=== PATIENT | female | born 1985 | race Caucasian/White ===

== ENCOUNTER 2020-11-06 20:24 | Emergency (ER) | payer OTHER, SELFPAY ==
--- NOTE | ~2020-11-06 | XR_ITS ---
EXAMINATION: XR CHEST CLINICAL INFORMATION: Shortness of breath COMPARISON: Prior chest August 2019 TECHNIQUE: Frontal view of the chest was obtained. FINDINGS: No significant abnormality is noted involving the heart, lungs, mediastinum, bony thorax or soft tissues. XR/XR chest 1V IMPRESSION: Unremarkable examination.
[2020-11-06 20:42] VITALS: BP 124/79; PULSE 118; RESP 22; TEMP 37.4; O2SAT 96; BMI 46.5
[2020-11-06 23:23] VITALS: BP 155/88; PULSE 117; RESP 20; O2SAT 96
--- NOTE | 2020-11-06 23:40 | ED_ITS ---
HPI - SOB/Dyspnea General Chief Complaint: Upper Respiratory Symptoms Stated Complaint: diff breathing, mucus build up Time Seen by Provider: 11/06/20 23:00 Source: patient Mode of arrival: ambulatory Limitations: no limitations History of Present Illness HPI Narrative: Patient comes to emergency room complaining of multiple asthma exacerbations throughout the last 2 weeks. Patient states that her asthma responds well to albuterol, however she is using more albuterol than usual, giving herself a treatment every 2-3 hours rather than 4 hours. Patient denies fever. Complaining of cough with phlegm. Related Data Previous Rx's Medication Instructions Recorded albuterol sulfate 2.5 mg INHALATION Q4-6H PRN #15 ml 11/07/20 albuterol sulfate 90 mcg/actuation 2 puff INHALATION Q4-6H PRN #6.7 g 11/07/20 aerosol inhaler prednisone 50 mg tablet 50 mg PO DAILY #4 tab 11/07/20 Allergies Allergy/AdvReac Type Severity Reaction Status Date / Time peanut [PEANUT] Allergy Severe ANAPHYLAXIS Verified 11/06/20 20:45 clindamycin [CLINDAMYCIN] Allergy Mild UNKNOWN Verified 11/06/20 20:45 cefaclor [From CECLOR] Allergy Unknown UNKNOWN Verified 11/06/20 20:45 erythromycin base Allergy Unknown RASH Verified 11/06/20 20:45 [ERYTHROMYCIN BASE] lemon [Lemon] AdvReac Unknown VOMITING Verified 11/06/20 20:45 SEAFOOD Allergy Severe ANAPHYLAXIS Uncoded 11/06/20 20:45 Review of Systems Review of Systems: Constitutional : No Weight loss, No Fever, No Chills, No Night Sweats, No Fatigue, No Malaise ENT/Mouth : No Hearing loss, No Ear Pain, No Nasal Congestion, No Sinus Pain, No Hoarseness, No sore throat, No Rhinorrhea, No Swallowing Difficulty Eyes: No Eye Pain, No Swelling, No Redness, No Foreign Body, No Discharge, No Vision Changes Cardiovascular : No Chest Pain, No SOB, No Dyspnea on Exertion, No Orthopnea, No Edema, No Palpitations Respiratory : Complaining of productive cough, multiple asthma exacerbations, No Smoke Exposure Gastrointestinal : No Nausea, No Vomiting, No Diarrhea, No Constipation, No abdominal Pain, No Hematochezia, No Melena Genitourinary : no irregular bleeding, No Dysuria, No Urinary Frequency, No Hematuria, No Urinary Incontinence, No Urgency, No Flank Pain, No Urinary Flow Changes, No Hesitancy Musculoskeletal : No joint pain, No Myalgias, No Joint Swelling Skin : No Skin Lesions, No rash Neuro : No Weakness, No Numbness, No Paresthesias, No Loss of Consciousness, No Dizziness, No Headache Psych : No Anxiety/Panic, No Depression, No SI/HI/AH/VH, No Social Issues, Heme/Lymph: No Bruising, No Bleeding,No Lymphadenopathy Endocrine : No Polyuria, No Polydipsia, No Temperature Intolerance [facility] Past Medical History Medical History Acid reflux Anxiety Asthma Social History Social History Advance Directives: No Physical Exam Vital Signs: Vital Signs: Last Vital Signs Temp 99.3 F 11/06/20 20:42 Pulse 117 H 11/07/20 00:14 Resp 20 11/06/20 23:23 BP 155/88 H 11/06/20 23:23 Pulse Ox 96 11/06/20 23:23 Body Mass Index 46.5 Const: Other: Appearance: Alert. Oriented X3. No acute distress. Eyes: Pupils equal, round and reactive to light. ENT: Pharynx normal. Neck: Normal inspection. Neck supple. No lymph nodes noted. No crepitus CVS: Normal heart rate and rhythm. Pulses normal. Normal S1 and S2 Respiratory: Diminished breath sounds, bilateral wheezing, no acute distress Abdomen: Soft and nontender. No rigidity. No distention. good BS x4 Skin: Skin warm and dry. Normal skin color. Normal skin turgor. Extremities: No lower extremity edema. No lower extremity edema. No Lacerations. No Rash Neuro: Oriented X 3. No motor deficit. No sensory deficit. Moving all extermities. No slurred speech. Course Course Course Narrative: Patient no longer wheezing after albuterol treatment and p.o. prednisone. MDM - SOB/Dyspnea Lab Data Labs: Lab Results 11/06/20 Range/Units 23:22 Coronavirus (PCR) NEGATIVE (Negative) Influenza Type A (PCR) NEGATIVE (Negative) Influenza Type B (PCR) NEGATIVE (Negative) RSV RNA Qual (PCR) NEGATIVE (Negative) Imaging Data Chest x-ray: Radiologist's impression: FINDINGS: No significant abnormality is noted involving the heart, lungs, mediastinum, bony thorax or soft tissues. XR/XR chest 1V IMPRESSION: Unremarkable examination. Discharge Plan Discharge Clinical Impression: Asthma exacerbation, Chronic bronchitis Patient Disposition: Home, Self-Care Instructions: Bronchospasm (ED) Additional Instructions: Please follow-up with your primary care physician tomorrow. If you have any worsening or new symptoms, please return to the emergency room or call 911 Prescriptions: New albuterol sulfate 2.5 mg /3 mL (0.083 %) solution for nebulization 2.5 mg inhalation Q4-6H PRN (Reason: bronchospasm) Qty: 15 RF: 0 albuterol sulfate 90 mcg/actuation HFA aerosol inhaler 2 puff inhalation Q4-6H PRN (Reason: shortness of breath or wheezing) Qty: 6.7 RF: 0 prednisone 50 mg tablet 50 mg PO DAILY Qty: 4 RF: 0
[2020-11-07 00:11] LABS: Influenza A PCR NEGATIVE (Negative); Influenza B PCR NEGATIVE (Negative); Resp Syncy Virus RNA Qual PCR NEGATIVE (Negative); SARS COV2 PCR INHOUSE NEGATIVE (Negative)
[2020-11-07] MEDS: Albuterol Sulfate (0.083%) 2.5 MG/3 ML VIAL.NEB 10 MG INHALE (00:13)
[2020-11-07 00:14] VITALS: PULSE 117; O2SAT 96
[2020-11-07] MEDS: predniSONE 20 MG TABLET 60 MG PO (01:12)
== END 2020-11-07 02:01 | disposition home or self-care (01) ==
PROVIDERS: Emergency Provider Emergency Medicine
DX: J45.901 Unspecified asthma with (acute) exacerbation (principal); J42 Unspecified chronic bronchitis; Z79.899 Other long term (current) drug therapy; Z20.822 Contact with and (suspected) exposure to COVID-19
CPT/HCPCS: 0241U; 36415; 71045; 94640; 94644; 99283; 99284

== ENCOUNTER 2021-03-13 13:47 | Emergency (ER) | payer OTHER, SELFPAY ==
--- NOTE | 2021-03-13 | ECG_ITS ---
Test Reason : CHEST WALL PAIN Blood Pressure : / mmHG Vent. Rate : 079 BPM Atrial Rate : 079 BPM P-R Int : 140 ms QRS Dur : 080 ms QT Int : 364 ms P-R-T Axes : 019 066 024 degrees QTc Int : 417 ms Normal sinus rhythm Normal ECG When compared with ECG of 23-AUG-2019 01:21, No significant change was found Referred By: Generic ED Physician Electronically Signed By:Jose Ladd
--- NOTE | ~2021-03-13 | XR_ITS ---
EXAMINATION: XR CHEST CLINICAL INFORMATION: Chest pain, cough. COMPARISON: 11/06/2020 chest radiograph. TECHNIQUE: 2 views of the chest were obtained. FINDINGS: No significant abnormality is noted involving the heart, lungs, mediastinum, bony thorax or soft tissues. XR/XR chest 2V IMPRESSION: No acute cardiopulmonary process.
[2021-03-13 13:56] VITALS: BP 100/62; BP 148/82; PULSE 105; PULSE 82; RESP 16; TEMP 35.9; O2SAT 95; O2SAT 99; BMI 48.6
--- NOTE | 2021-03-13 14:21 | ED_ITS ---
HPI - General Adult General Chief complaint: General Medical Time Seen by Provider: 03/13/21 14:21 Source: patient, EMS and RN notes reviewed Mode of arrival: EMS Limitations: no limitations History of Present Illness HPI narrative: 36-year-old female with past medical history of acid reflux, and anxiety, asthma is here today for complaints of less chest discomfort. Patient reports that she has reproducible lowerleft and upper left chest pain. Patient reports that she has been coughing in the last couple days with white sputum. Patient has a history of asthma. Reports that she used her nebulizer treatment with some results yesterday. Patient denies any orthopnea, SOB with or without exertion, palpitations, PND. Patient reports that she has been feeling little tired lately. She states that she might be . Is asking for test. Patient denies any nausea or vomiting. Denies any diarrhea, constipation. Onset (ago): day(s) Location: chest Radiation: non-radiation Severity: mild Quality: aching Pain Consistency: intermittent Related Data Previous Rx's Medication Instructions Recorded albuterol sulfate 2.5 mg (3 mL) INHALATION Q4-6H PRN 11/07/20 #15 ml albuterol sulfate 90 mcg/actuation 2 puff INHALATION Q4-6H PRN #6.7 g 11/07/20 aerosol inhaler prednisone 50 mg tablet 50 mg PO DAILY #4 tab 11/07/20 ibuprofen 100 mg/5 mL oral 600 mg (30 mL) PO Q6H PRN #473 ml 03/13/21 suspension (Children's Ibuprofen) Allergies Allergy/AdvReac Type Severity Reaction Status Date / Time peanut [PEANUT] Allergy Severe ANAPHYLAXIS Verified 11/06/20 20:45 clindamycin [CLINDAMYCIN] Allergy Mild UNKNOWN Verified 11/06/20 20:45 cefaclor [From CECLOR] Allergy Unknown UNKNOWN Verified 11/06/20 20:45 erythromycin base Allergy Unknown RASH Verified 11/06/20 20:45 [ERYTHROMYCIN BASE] lemon [Lemon] AdvReac Unknown VOMITING Verified 11/06/20 20:45 SEAFOOD Allergy Severe ANAPHYLAXIS Uncoded 11/06/20 20:45 Review of Systems Review of Systems: Constitutional : No Weight loss, No Fever, No Chills, No Night Sweats, No Fatigue, No Malaise ENT/Mouth : No Hearing loss, No Ear Pain, No Nasal Congestion, No Sinus Pain, No Hoarseness, sore throat, No Rhinorrhea, No Swallowing Difficulty Eyes: No Eye Pain, No Swelling, No Redness, No Foreign Body, No Discharge, No Vision Changes Cardiovascular : Chest Pain reproducible, No SOB, No Dyspnea on Exertion, No Orthopnea, No Edema, No Palpitations Respiratory : Cough, No Sputum, No Wheezing, No Smoke Exposure, No Dyspnea Gastrointestinal Nausea, No Vomiting, No Diarrhea, No Constipation, No abdominal Pain, No Hematochezia, No Melena Genitourinary : no irregular bleeding, No Dysuria, No Urinary Frequency, No Hematuria, No Urinary Incontinence, No Urgency, No Flank Pain, No Urinary Flow Changes, No Hesitancy Musculoskeletal : No joint pain, No Myalgias, No Joint Swelling Skin : No Skin Lesions, No rash Neuro : No Weakness, No Numbness, No Paresthesias, No Loss of Consciousness, No Dizziness, No Headache Psych : No Anxiety/Panic, No Depression, No SI/HI/AH/VH, No Social Issues, Yes all other systems are reviewed and are negative [facility] Past Medical History Medical History Acid reflux Anxiety Asthma Social History Social History Advance Directives: No Advance Directives Information Provided: No Physical Exam Vital Signs: Vital Signs: Last Vital Signs Temp 96.7 F L 03/13/21 13:56 Pulse 82 03/13/21 13:56 Resp 16 03/13/21 13:56 BP 100/62 03/13/21 13:56 Pulse Ox 95 03/13/21 13:56 BMI result Body Mass Index 48.6 Const: General: healthy appearing, no acute distress and well developed Nutritional Appearance: well nourished Orientation/consciousness: patient oriented x3 HENMT: Head: Yes normal to inspection, Yes normocephalic and Yes atraumatic Face and sinus: Yes normal facial exam Mouth: Normal oral and palatal mucosa present Throat: Yes posterior oropharynx normal, Yes tonsils normal and Yes uvula midline Eyes: General: appearance normal, both eyes and all related structures Neck: Neck: Yes normal visual inspection, Yes full ROM and Yes trachea midline Thyroid: Thyroid normal Resp: Effort & Inspection: normal respiratory effort, able to speak in complete sentences, no tracheal deviation and symmetric chest movement Auscultation: clear to auscultation bilaterally Cardio: Jugular venous distension: no JVD Rate: regular rate Heart sounds: S1 normal heart sound present, S2 normal heart sound present, no gallops and no murmurs GI: Inspection: Yes normal to inspection, No distended and Yes obesity Palpation (GI): Soft to palpation, not firm, nontender and No hepatosplenomegaly present Auscultation: normal bowel sounds : General: Yes no CVA tenderness Back/Spine/Pelvis: Back: no CVA tenderness Skin: General skin exam: elasticity normal, turgor normal and dry skin Neuro: General: patient oriented x3 Psych: Appearance: grossly normal Mental Status: mental status grossly normal Speech and movement: Normal speech and movement present Affect: normal affect Attitude: cooperative Thought process: Normal thought process present Thought content: Normal thought content present Insight: Good insight present (Psych) Judgement: Good judgement present (Psych) Course Course Course Narrative: 36-year-old male is here today for left-sided chest pain, epigastric discomfort and slight nausea. Patient reports that she had symptoms mild cold, history of asthma, used nebulizer treatment last night and felt little better. Patient reports coughing up white sputum. Denies any SOB with or without exertion, palpitations. patient reports that she was treated for acid reflux few years back. Currently is not taking any thing for it. Patient reports to have a normal bowel movements. Denies any abdominal pain or discomfort. Patient denies any other GI concerning symptoms or any other cardiac concerning symptoms. We will do chest x-ray, CBC, CMP and troponin. Most likely her pain as musculoskeletal or from cough and for the last couple days. Reevaluation(s) Reevaluation #1: Normal labs and chest x-ray. Patient will be sent home to follow-up with PCP. I will send her to see GI specialty. Patient does have a epigastric discomfort with of occasional acid reflux. Patient reports that she takes famotidine at night with affect. Patient might need to see GI specialty to rule out H pylori, might need to be on PPI. Medical Decision Making Lab Data Result diagrams: 03/13/21 15:18 03/13/21 15:17 Labs: Lab Results 03/13/21 03/13/21 03/13/21 Range/Units 15:17 15:17 15:17 WBC (4.8-10.8) X10*3/uL RBC (4.20-5.50) X10*6/uL Hgb (12.0-16.0) g/dl Hct (37.0-47.0) % MCV (80.0-98.0) fL MCH (27.0-33.0) pg MCHC (31.0-35.0) g/dl RDW (11.0-16.0) % Plt Count (160-400) X10*3/uL MPV (9.4-12.3) fL Immature Gran % (Auto) (0.0-0.4) % Neut % (Auto) (45-73) % Lymph % (Auto) (20-40) % [place] % (Auto) (2-11) % Eos % (Auto) (0-4) % Baso % (Auto) (0-2) % Lymph # (Auto) (1.2-4.9) X10*3/uL [place] # (Auto) (0.1-1.2) X10*3/uL Eos # (Auto) (0.0-0.4) X10*3/uL Baso # (Auto) (0.0-0.2) X10*3/uL Abs Immat Gran (auto) (0.00-0.03) X10*3/uL Absolute Neuts (auto) (2.0-8.3) x10*3/uL Absolute Nucleated RBC (0.0-0.012) X10*3/uL Nucleated RBC % (auto) (0.0-0.2) /100WBC Sodium 141 (135-145) mmol/L Potassium 4.2 (3.3-5.1) mmol/L Chloride 108 (96-108) mmol/L Carbon Dioxide 26 (22-29) mmol/L Anion Gap 11 L (12-20) BUN 8 L (9-16) mg/dL Creatinine 0.84 (0.5-1.4) mg/dL Estim Creat Clear Calc 126.1 Estimated GFR > 60 Random Glucose 95 (60-115) mg/dL Calcium 9.1 (8.4-10.2) mg/dL Total Bilirubin 0.6 (0.0-1.0) mg/dL AST 20 (5-31) U/L ALT 15 (0-31) U/L Alkaline Phosphatase 73 (39-117) U/L Troponin I High Sens < 3.5 (<3.5-17.0) ng/L Total Protein 6.6 (6.5-8.0) g/dL Albumin 3.8 (3.5-5.0) g/dL Urine Color Urine Appearance Urine pH (5.0-8.0) Ur Specific [place] (1.005-1.025) Urine Protein (NEG-TRACE) MG/DL Urine Glucose (UA) (NEG) MG/DL Urine Ketones (NEG) MG/DL Urine Blood (NEG) Urine Nitrite (NEG) Ur Leukocyte Esterase (NEG) Urine Test (NEGATIVE) COVID-19 (JENNIFER) Negative (Negative) COVID-19 Clin Com See Note 03/13/21 03/13/21 03/13/21 Range/Units 15:18 15:19 15:19 WBC 8.3 (4.8-10.8) X10*3/uL RBC 4.49 (4.20-5.50) X10*6/uL Hgb 12.2 (12.0-16.0) g/dl Hct 38.0 (37.0-47.0) % MCV 84.6 (80.0-98.0) fL MCH 27.2 (27.0-33.0) pg MCHC 32.1 (31.0-35.0) g/dl RDW 13.2 (11.0-16.0) % Plt Count 201 (160-400) X10*3/uL MPV 10.2 (9.4-12.3) fL Immature Gran % (Auto) 0.2 (0.0-0.4) % Neut % (Auto) 69.9 (45-73) % Lymph % (Auto) 22.4 (20-40) % [place] % (Auto) 5.8 (2-11) % Eos % (Auto) 1.2 (0-4) % Baso % (Auto) 0.5 (0-2) % Lymph # (Auto) 1.9 (1.2-4.9) X10*3/uL [place] # (Auto) 0.5 (0.1-1.2) X10*3/uL Eos # (Auto) 0.1 (0.0-0.4) X10*3/uL Baso # (Auto) 0.0 (0.0-0.2) X10*3/uL Abs Immat Gran (auto) 0.02 (0.00-0.03) X10*3/uL Absolute Neuts (auto) 5.8 (2.0-8.3) x10*3/uL Absolute Nucleated RBC 0.000 (0.0-0.012) X10*3/uL Nucleated RBC % (auto) 0.0 (0.0-0.2) /100WBC Sodium (135-145) mmol/L Potassium (3.3-5.1) mmol/L Chloride (96-108) mmol/L Carbon Dioxide (22-29) mmol/L Anion Gap (12-20) BUN (9-16) mg/dL Creatinine (0.5-1.4) mg/dL Estim Creat Clear Calc Estimated GFR Random Glucose (60-115) mg/dL Calcium (8.4-10.2) mg/dL Total Bilirubin (0.0-1.0) mg/dL AST (5-31) U/L ALT (0-31) U/L Alkaline Phosphatase (39-117) U/L Troponin I High Sens (<3.5-17.0) ng/L Total Protein (6.5-8.0) g/dL Albumin (3.5-5.0) g/dL Urine Color YELLOW Urine Appearance CLEAR Urine pH 6.0 (5.0-8.0) Ur Specific [place] <= 1.005 (1.005-1.025) Urine Protein NEG (NEG-TRACE) MG/DL Urine Glucose (UA) NEG (NEG) MG/DL Urine Ketones NEG (NEG) MG/DL Urine Blood NEG (NEG) Urine Nitrite NEG (NEG) Ur Leukocyte Esterase NEG (NEG) Urine Test NEGATIVE (NEGATIVE) COVID-19 (JENNIFER) (Negative) COVID-19 Clin Com Imaging Data Chest x-ray: Attestation: I personally reviewed and interpreted this imaging study as follows: Radiologist's impression: FINDINGS: No significant abnormality is noted involving the heart, lungs, mediastinum, bony thorax or soft tissues. Discharge Plan Discharge Clinical Impression: Left chest pressure, Costochondritis Patient Disposition: Home, Self-Care Instructions: Costochondritis (ED), Gastroesophageal Reflux Disease (ED) Additional Instructions: you were seen here today for left side of chest pain and epigastric discomfort. All your blood work is negative for any acute findings. You chest x-ray was normal. Your COVID test was negative. Your urine was negative for both and any infection. Please follow-up with your primary care doctor. 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 Please return to emergency department if your symptoms will get worse or if you experience any additional concerning symptoms. Your pain in your left chest most likely is related to musculoskeletal pain. You will be giving script for ibuprofen suspension. Prescriptions: New ibuprofen [Children's Ibuprofen] 100 mg/5 mL suspension 600 mg PO Q6H PRN (Reason: pain) Qty: 473 RF: 0 No Action albuterol sulfate 2.5 mg /3 mL (0.083 %) solution for nebulization 2.5 mg inhalation Q4-6H PRN (Reason: bronchospasm) Qty: 15 RF: 0 albuterol sulfate 90 mcg/actuation HFA aerosol inhaler 2 puff inhalation Q4-6H PRN (Reason: shortness of breath or wheezing) Qty: 6.7 RF: 0 prednisone 50 mg tablet 50 mg PO DAILY Qty: 4 RF: 0 Referrals: Mar Clemente MD [Physician] - 10 days ( GERD) Erika Burciaga MD [Primary Care Provider] - 10 days Interventions: ED Discharge Assessment Last Done: 03/13/21 17:56 Discharge Date/Time: 03/13/21 17:57
[2021-03-13 15:24] LABS: MANUAL DIFF FLAG NO
[2021-03-13 15:26] LABS: Basophils Percent Auto 0.5 % (0-2); Eosinophils Absolute Auto 0.1 X10*3/uL (0.0-0.4); Eosinophils Percent Auto 1.2 % (0-4); Hemoglobin 12.2 g/dl (12.0-16.0); Imm Gran Abs Auto 0.02 X10*3/uL (0.00-0.03); Imm Gran Pct Auto 0.2 % (0.0-0.4); Lymphocytes Absolute Auto 1.9 X10*3/uL (1.2-4.9); Lymphocytes Percent Auto 22.4 % (20-40); Mean Corpuscular HGB Conc 32.1 g/dl (31.0-35.0); Mean Corpuscular Hemoglobin 27.2 pg (27.0-33.0); Mean Corpuscular Volume 84.6 fL (80.0-98.0); Mean Platelet Volume 10.2 fL (9.4-12.3); Monocytes Absolute Auto 0.5 X10*3/uL (0.1-1.2); Monocytes Percent Auto 5.8 % (2-11); Neutrophils Absolute Auto 5.8 x10*3/uL (2.0-8.3); Neutrophils Percent Auto 69.9 % (45-73); Platelet Count 201 X10*3/uL (160-400); Red Blood Count 4.49 X10*6/uL (4.20-5.50); Red Cell Distribution Width 13.2 % (11.0-16.0); White Blood Count 8.3 X10*3/uL (4.8-10.8)
[2021-03-13 15:35] LABS: Appearance Urine CLEAR; Glucose Urine UA NEG (NEG); Leukocyte Esterase Urine NEG (NEG); Nitrite Urine NEG (NEG); Specific Gravity - Urine <= 1.005 (1.005-1.025); Urine Blood NEG (NEG); Urine Ketones NEG (NEG); Urine Protein NEG (NEG-TRACE)
[2021-03-13 15:40] LABS: UPreg QC Valid YES; Urine Pregnancy NEGATIVE (NEGATIVE)
[2021-03-13 15:41] LABS: Alanine Aminotransferase 15 U/L (0-31); Albumin Level 3.8 g/dL (3.5-5.0); Alkaline Phosphatase 73 U/L (39-117); Anion Gap 11 (12-20); Aspartate Amino Transferase 20 U/L (5-31); Bilirubin Total 0.6 mg/dL (0.0-1.0); Blood Urea Nitrogen 8 mg/dL (9-16); Calcium 9.1 mg/dL (8.4-10.2); Carbon Dioxide 26 mmol/L (22-29); Chloride 108 mmol/L (96-108); Creatinine Clr Calc Pharmacy 126.1; Estimated Glomerular Filt Rate > 60; Glucose Random 95 mg/dL (60-115); Potassium 4.2 mmol/L (3.3-5.1); Sodium 141 mmol/L (135-145); Total Protein 6.6 g/dL (6.5-8.0)
[2021-03-13 15:44] LABS: Color Urine YELLOW
[2021-03-13 15:45] LABS: COVID-19 Test Negative (Negative); Troponin-I High Sensitivity < 3.5 ng/L (<3.5-17.0)
--- NOTE | 2021-03-13 17:32 | PC.NURSE ---
SINCE ARRIVAL PT HAS BEEM RESTING QQUIETLY. SKIN PWD. NO VOMITING./ NO SOB. NO GRIMACE. ON PHONE FOR MAJORITY OF VISIT.
== END 2021-03-13 17:57 | disposition home or self-care (01) ==
PROVIDERS: Nurse Practitioner Family; Emergency Provider Emergency Medicine; PCP Internal Medicine
DX: R07.89 Other chest pain (principal); M94.0 Chondrocostal junction syndrome [Tietze]; Z20.822 Contact with and (suspected) exposure to COVID-19; R53.83 Other fatigue
CPT/HCPCS: 36415; 71046; 80053; 81003; 81025; 84484; 85025; 87635; 93005; 96374; 99284

== ENCOUNTER → 2021-04-19 11:00 | Outpatient (BNVA) | payer OTHER, SELFPAY | PROVIDERS: PCP Internal Medicine; Visit Provider Nurse Practitioner Family | DX: G43.109 Migraine with aura, not intractable, without status migrainosus (principal); G47.9 Sleep disorder, unspecified | CPT/HCPCS: 99212 ==

== ENCOUNTER → 2021-05-07 12:03 | Outpatient (BNVA) | payer OTHER, SELFPAY | PROVIDERS: PCP Internal Medicine; Referring Provider Internal Medicine; Visit Provider Nurse Practitioner | DX: K21.9 Gastro-esophageal reflux disease without esophagitis (principal); K59.00 Constipation, unspecified; R10.12 Left upper quadrant pain; K80.20 Calculus of gallbladder without cholecystitis without obstruction; B18.2 Chronic viral hepatitis C; E66.01 Morbid (severe) obesity due to excess calories; Z68.42 Body mass index [BMI] 45.0-49.9, adult | CPT/HCPCS: 99202 ==

== ENCOUNTER 2021-05-08 11:30 | Outpatient (REF) | payer OTHER, SELFPAY | END 2021-05-08 11:31 | disposition home or self-care (01) | LOC: HO.LNP 11:30 | PROVIDERS: Visit Provider Nurse Practitioner | DX: K59.00 Constipation, unspecified (principal); Z11.0 Encounter for screening for intestinal infectious diseases | CPT/HCPCS: 87338 ==

== ENCOUNTER 2021-05-17 11:02 | Outpatient (REF) | payer OTHER, SELFPAY ==
--- NOTE | ~2021-05-17 | XR_ITS ---
EXAMINATION: XR ABDOMEN COMPLETE CLINICAL INDICATION: Constipation COMPARISON: None TECHNIQUE: 2 views of the abdomen. FINDINGS: There are no dilated loops of bowel or air-fluid levels to suggest obstruction. There does not appear to be a large amount of stool in the colon. There is no evidence of free air. No calcifications are seen. The lung bases are clear. There may be degenerative changes of the lower lumbar spine. Bony structures are otherwise unremarkable. XR/XR abdomen min 2V IMPRESSION: Unremarkable exam.
[2021-05-17 13:57] LABS: MANUAL DIFF FLAG NO
[2021-05-17 14:03] LABS: Basophils Percent Auto 0.3 % (0-2); Eosinophils Absolute Auto 0.1 X10*3/uL (0.0-0.4); Eosinophils Percent Auto 0.9 % (0-4); Hematocrit 41.8 % (37.0-47.0); Hemoglobin 13.3 g/dl (12.0-16.0); Imm Gran Abs Auto 0.02 X10*3/uL (0.00-0.03); Imm Gran Pct Auto 0.2 % (0.0-0.4); Lymphocytes Percent Auto 22.5 % (20-40); Mean Corpuscular HGB Conc 31.8 g/dl (31.0-35.0); Mean Corpuscular Hemoglobin 26.7 pg (27.0-33.0); Mean Corpuscular Volume 83.9 fL (80.0-98.0); Mean Platelet Volume 11.2 fL (9.4-12.3); Monocytes Absolute Auto 0.5 X10*3/uL (0.1-1.2); Monocytes Percent Auto 5.1 % (2-11); Neutrophils Absolute Auto 6.4 x10*3/uL (2.0-8.3); Platelet Count 230 X10*3/uL (160-400); Red Blood Count 4.98 X10*6/uL (4.20-5.50); Red Cell Distribution Width 14.2 % (11.0-16.0); White Blood Count 9.1 X10*3/uL (4.8-10.8)
[2021-05-17 14:22] LABS: Alanine Aminotransferase 21 U/L (0-31); Albumin Level 4.2 g/dL (3.5-5.0); Alkaline Phosphatase 77 U/L (39-117); Anion Gap 12 (12-20); Aspartate Amino Transferase 22 U/L (5-31); Bilirubin Total 0.6 mg/dL (0.0-1.0); Blood Urea Nitrogen 9 mg/dL (9-16); Calcium 9.5 mg/dL (8.4-10.2); Carbon Dioxide 26 mmol/L (22-29); Chloride 104 mmol/L (96-108); Estimated Glomerular Filt Rate > 60; Glucose Random 89 mg/dL (60-115); Sodium 138 mmol/L (135-145); Total Protein 7.4 g/dL (6.5-8.0)
== END 2021-05-17 11:03 | disposition home or self-care (01) ==
LOC: HO.HMGCLDS 11:02
PROVIDERS: PCP Internal Medicine; Visit Provider Physician Assistant
DX: R10.84 Generalized abdominal pain (principal); R11.10 Vomiting, unspecified; K80.20 Calculus of gallbladder without cholecystitis without obstruction; K59.00 Constipation, unspecified
CPT/HCPCS: 36415; 74019; 80053; 85025

== ENCOUNTER → 2021-08-20 10:43 | Outpatient (BNVA) | payer OTHER, SELFPAY | PROVIDERS: PCP Internal Medicine; Visit Provider Nurse Practitioner Family | DX: G43.109 Migraine with aura, not intractable, without status migrainosus (principal); E66.01 Morbid (severe) obesity due to excess calories; Z68.42 Body mass index [BMI] 45.0-49.9, adult | CPT/HCPCS: 99212 ==

== ENCOUNTER → 2021-09-10 10:05 | Outpatient (BNVA) | payer OTHER, SELFPAY | PROVIDERS: PCP Internal Medicine; Referring Provider Physician Assistant Medical; Visit Provider Nurse Practitioner | DX: K21.9 Gastro-esophageal reflux disease without esophagitis (principal); K59.00 Constipation, unspecified; K80.20 Calculus of gallbladder without cholecystitis without obstruction; E66.01 Morbid (severe) obesity due to excess calories; Z68.42 Body mass index [BMI] 45.0-49.9, adult | CPT/HCPCS: 99212 ==

== ENCOUNTER 2021-11-20 11:49 | Emergency (ER) | payer OTHER, SELFPAY ==
--- NOTE | ~2021-11-20 | XR_ITS ---
EXAMINATION: XR CHEST CLINICAL INFORMATION: Cough. COMPARISON: 03/13/2021 chest radiographs. TECHNIQUE: Frontal view of the chest was obtained. FINDINGS: No significant abnormality is noted involving the heart, lungs, mediastinum, bony thorax or soft tissues. XR/XR chest 1V IMPRESSION: No acute cardiopulmonary process.
[2021-11-20 12:09] VITALS: BP 114/71; PULSE 118; RESP 18; TEMP 37.2; O2SAT 96; BMI 48.2
--- NOTE | 2021-11-20 12:14 | ECG_ITS ---
Test Reason : TACHYCARDIA Blood Pressure : / mmHG Vent. Rate : 122 BPM Atrial Rate : 122 BPM P-R Int : 150 ms QRS Dur : 076 ms QT Int : 302 ms P-R-T Axes : 046 012 026 degrees QTc Int : 430 ms Sinus tachycardia Otherwise normal ECG When compared with ECG of 13-MAR-2021 14:02, Vent. rate has increased BY 43 BPM Referred By: Generic ED Physician Electronically Signed By:NANNETTE BRIONES
[2021-11-20 12:31] LABS: Basophils Percent Auto 0.4 % (0-2); Eosinophils Absolute Auto 0.1 X10*3/uL (0.0-0.4); Eosinophils Percent Auto 1.1 % (0-4); Hematocrit 41.4 % (37.0-47.0); Hemoglobin 13.3 g/dl (12.0-16.0); Imm Gran Abs Auto 0.01 X10*3/uL (0.00-0.03); Imm Gran Pct Auto 0.1 % (0.0-0.4); Lymphocytes Absolute Auto 0.2 X10*3/uL (1.2-4.9); Lymphocytes Percent Auto 2.7 % (20-40); MANUAL DIFF FLAG SCAN; Mean Corpuscular HGB Conc 32.1 g/dl (31.0-35.0); Mean Corpuscular Hemoglobin 26.5 pg (27.0-33.0); Mean Corpuscular Volume 82.5 fL (80.0-98.0); Monocytes Absolute Auto 0.4 X10*3/uL (0.1-1.2); Monocytes Percent Auto 5.4 % (2-11); Neutrophils Absolute Auto 6.5 x10*3/uL (2.0-8.3); Neutrophils Percent Auto 90.3 % (45-73); Platelet Count 195 X10*3/uL (160-400); Red Blood Count 5.02 X10*6/uL (4.20-5.50); Red Cell Distribution Width 13.4 % (11.0-16.0); SCAN SMEAR FLAG 1; White Blood Count 7.2 X10*3/uL (4.8-10.8)
[2021-11-20 12:36] LABS: Appearance Urine Clear; Color Urine Yellow; Glucose Urine UA Negative (Negative); Leukocyte Esterase Urine Negative (Negative); Nitrite Urine Negative (Negative); Specific Gravity - Urine <= 1.005 (1.005-1.025); Urine Blood Negative (Negative); Urine Ketones Negative (Negative); Urine Pregnancy NEGATIVE (NEGATIVE); Urine Protein Negative (Neg-Trace)
[2021-11-20 12:37] LABS: UPreg QC Valid YES
[2021-11-20 12:49] LABS: Alanine Aminotransferase 22 U/L (0-31); Albumin Level 4.1 g/dL (3.5-5.0); Alkaline Phosphatase 78 U/L (39-117); Anion Gap 15 (12-20); Aspartate Amino Transferase 21 U/L (5-31); Bilirubin Total 0.5 mg/dL (0.0-1.0); Blood Urea Nitrogen 9 mg/dL (9-16); Calcium 9.3 mg/dL (8.4-10.2); Carbon Dioxide 25 mmol/L (22-29); Chloride 104 mmol/L (96-108); Creatinine Clr Calc Pharmacy 119.9; Estimated Glomerular Filt Rate > 60; Glucose Random 94 mg/dL (60-115); Potassium 4.2 mmol/L (3.3-5.1); Sodium 140 mmol/L (135-145); Total Protein 7.3 g/dL (6.5-8.0)
[2021-11-20 12:51] LABS: COVID-19 Test Positive (Negative)
[2021-11-20 13:06] LABS: SLIDE REVIEW VERIFIED
[2021-11-20 15:41] VITALS: BP 112/73; PULSE 116; RESP 18; TEMP 37.7; O2SAT 99
--- NOTE | 2021-11-20 15:54 | PC.NURSE ---
Provider made aware of patient being tachy.
--- NOTE | 2021-11-20 16:02 | ED.GENADULT ---
HPI - General Adult General Chief complaint: Upper Respiratory Symptoms Stated complaint: covid + headache back rib chest heart rate Time Seen by Provider: 11/20/21 16:00 Source: patient Mode of arrival: ambulatory Limitations: no limitations History of Present Illness HPI narrative: 36-year-old female history of GERD, hepatitis, OCD, migraines, hepatitis-C presenting to the emergency department with complaints of sudden onset body aches and pains, subjective fevers and chills, nausea, headache, atraumatic lower back pain described as an aching pain to bilateral sides, chest discomfort, malaise, fatigue x1 day. Patient tells me she had COVID and it felt like this when she had it. She tells me she is not vaccinated. Back when she had COVID before there is no complications. No significant personal or family history of cardiac disease. Patient anxious about diagnosis. Patient had a positive test at home. Patient denies any trauma, shortness of breath, vomiting, abdominal pain, vision changes, dizziness, numbness or tingling. Related Data Home Medications Medication Instructions Recorded Confirmed cholecalciferol (vitamin D3) 50 50 mcg PO DAILY 05/07/21 08/20/21 mcg (2,000 unit) tablet fluticasone propionate 230 2 puff PO BID 05/07/21 08/20/21 mcg-salmeterol 21 mcg/actuation HFA inhaler (Advair HFA) folic acid 800 mcg tablet 0.8 mg PO DAILY 05/07/21 08/20/21 multivitamin with folic acid 400 1 tab PO DAILY 05/07/21 08/20/21 mcg tablet (Daily-Meri (with folic acid)) sodium chloride 0.65 % nasal spray spray intranasal 05/07/21 08/20/21 aerosol (Saline Nasal) diphenhydramine HCl 25 mg capsule 25 mg PO TID PRN 05/17/21 08/20/21 (Banophen) biotin 5 mg capsule 5 mg PO DAILY 08/20/21 08/20/21 cetirizine 10 mg tablet 20 mg PO DAILY PRN allergies 08/20/21 08/20/21 fluticasone propionate 50 2 spray intranasal DAILY PRN 09/10/21 mcg/actuation nasal spray,suspension riboflavin (vitamin B2) 100 mg 400 mg PO DAILY 09/10/21 tablet (Vitamin B-2) Previous Rx's Medication Instructions Recorded albuterol sulfate 2.5 mg/3 mL 2.5 mg (3 mL) inhalation Q4-6H PRN 11/07/20 (0.083 %) solution for nebulization bronchospasm #15 mL albuterol sulfate 90 mcg/actuation 2 puff inhalation Q4-6H PRN 11/07/20 aerosol inhaler shortness of breath or wheezing #6.7 grams ibuprofen 100 mg/5 mL oral 600 mg (30 mL) PO Q6H PRN pain 03/13/21 suspension (Children's Ibuprofen) #473 mL sennosides 8.6 mg capsule (senna) 17.2 mg PO BEDTIME constipation 30 05/07/21 days #60 caps sennosides 8.6 mg tablet (Senna 17.2 mg PO BEDTIME 30 days #60 tabs 05/07/21 Lax) magnesium oxide 400 mg (241.3 mg 400 mg PO BEDTIME 30 days #30 tabs 06/18/21 magnesium) tablet diclofenac sodium 1 % topical gel 2 g topical QID 30 days #100 grams 08/20/21 (Arthritis Pain (diclofenac)) famotidine 20 mg tablet (Acid 20 mg PO BID #60 tabs 09/10/21 Railroad Track Repair Supervisor (famotidine)) Allergies Allergy/AdvReac Type Severity Reaction Status Date / Time peanut [PEANUT] Allergy Severe ANAPHYLAXIS Verified 09/10/21 10:13 clindamycin [CLINDAMYCIN] Allergy Mild UNKNOWN Verified 09/10/21 10:13 strawberry Allergy Mild Abdominal Verified 09/10/21 10:13 Pain cefaclor [From CECLOR] Allergy Unknown UNKNOWN Verified 09/10/21 10:13 erythromycin base Allergy Unknown RASH Verified 09/10/21 10:13 [ERYTHROMYCIN BASE] lemon [Lemon] AdvReac Unknown VOMITING Verified 09/10/21 10:13 SEAFOOD Allergy Severe ANAPHYLAXIS Uncoded 09/10/21 10:13 Review of Systems Review of Systems: Constitutional : No Weight loss, No Fever, No Chills, + Fatigue, + Malaise ENT/Mouth : No sore throat, No Rhinorrhea, + facial congestion Eyes: No Eye Pain, No Swelling, No Redness Cardiovascular : No Chest Pain, No SOB, No Dyspnea on Exertion, No Orthopnea, No Edema, No Palpitations Respiratory : No Cough, No Sputum, No Wheezing Gastrointestinal : No Nausea, No Vomiting, No Diarrhea, No Constipation, No abdominal Pain, No Hematochezia, No Melena Genitourinary : No Dysuria, No Urinary Frequency, No Hematuria, Musculoskeletal : No joint pain, No Myalgias, No Joint Swelling Skin : No Skin Lesions, No rash Neuro : + Weakness, No Numbness, No Dizziness, No Headache Psych : No Anxiety/Panic, No Depression All other systems reviewed and are negative Yes all other systems are reviewed and are negative [facility] Past Medical History Attestation statement: The following information was validated with the patient. Source: old records reviewed and nursing notes reviewed Medical History Anxiety Asthma Surgical History Hx of tonsillectomy Family History Family History Father Heart disease Mother Migraine Heart disease Social History Social History Alcohol intake: never Patient Tobacco Use Status: Never used Tobacco Use of substances other than those prescribed or required for medical reasons: No Advance Directives: No Advance Directives Information Provided: No Physical Exam ED Vital Signs: Vital Signs - 24 hr 11/20/21 12:09 11/20/21 15:41 11/20/21 17:22 Temperature 99.0 F 99.9 F 99.8 F Pulse Rate 118 H 116 H 112 H Respiratory Rate 18 18 18 Blood Pressure 114/71 112/73 125/69 Pulse Oximetry 96 99 99 Oxygen Delivery Method Room Air Room Air Room Air BMI result Body Mass Index 48.2 vss Appearance: Alert.? Oriented X3.? No acute distress.? Head: Normocephalic, atraumatic, no step-offs or deformities Eyes: Pupils equal, round and reactive to light.? ENT: Pharynx normal.? Neck: Normal inspection.? Neck supple.? CVS: Normal heart rate and rhythm.? Pulses normal.? Respiratory: No respiratory distress.? Breath sounds normal.? Abdomen: Soft and nontender.? Skin: Skin warm and dry.? Normal skin color.? Normal skin turgor.? Extremities: No lower extremity edema.? No calf ttp. 5/5 strength to bilateral upper and lower extremities. DTRs intact Back: No midline tenderness, no C-spine tenderness, full range of motion, no CVA tenderness bilaterally Neuro: Oriented X 3.? No motor deficit.? No sensory deficit. CN 2-12 intact. Ambulating w/ steady gait normal cordination. Course Reevaluation(s) Reevaluation #1: CBC with no acute findings. Chemistry no acute electrolyte abnormalities requiring intervention. Urine clean. COVID positive. Chest x-ray with no acute findings. EKG is sinus tachycardia. I suspect tachycardia secondary to viral infection, unlikely that this is secondary to sepsis and or PE. Time: 16:09 Reevaluation #2: I obtained a D-dimer on this patient D-dimer was negative Again supporting that this is unlikely PE. Troponin negative unlikely ACS. This time patient will be discharged home she was given Tylenol for discomfort. Symptoms likely secondary to COVID-19. I feel comfortable with discharge I did take the time to educate on worrisome signs and symptoms and when to return and outlined them on her discharge. Time: 17:14 Medical Decision Making [facility] Narrative Medical decision making narrative: [id number] 36-year-old female presents with congestion, malaise, fatigue times a few days, positive at home COVID test today. Tells me she is anxious about her diagnosis. Upon physical examination patient appears anxious, feels warm to the touch, rapid regular rhythm likely sinus tachycardia, saturating well on room air, lungs clear, negative Sukhjinder bilaterally, neuro exam nonfocal. Likely symptoms secondary to COVID-19. I do not suspect PE, ACS on this patient. Lungs are clear unlikely that this is pneumonia. History and physical examination not consistent with cauda equina or epidural abscess. Headache feels like her typical unlikely ICH. Plan at this time is basic labs, COVID, chest x-ray, EKG will also obtain an ambulatory O2. Will also give patient Tylenol as she has a low-grade fever, as she feels warm to the touch Medical Records Medical records reviewed: Yes I reviewed the patient's medical records. Lab Data Lab results reviewed: Yes I reviewed the patient's lab results. Result diagrams: 11/20/21 12:23 11/20/21 12:23 Labs: Lab Results 11/20/21 11/20/21 11/20/21 Range/Units 12:20 12:23 12:23 WBC 7.2 (4.8-10.8) X10*3/uL RBC 5.02 (4.20-5.50) X10*6/uL Hgb 13.3 (12.0-16.0) g/dl Hct 41.4 (37.0-47.0) % MCV 82.5 (80.0-98.0) fL MCH 26.5 L (27.0-33.0) pg MCHC 32.1 (31.0-35.0) g/dl RDW 13.4 (11.0-16.0) % Plt Count 195 (160-400) X10*3/uL MPV 10.0 (9.4-12.3) fL Immature Gran % (Auto) 0.1 (0.0-0.4) % Neut % (Auto) 90.3 H (45-73) % Lymph % (Auto) 2.7 L (20-40) % [place] % (Auto) 5.4 (2-11) % Eos % (Auto) 1.1 (0-4) % Baso % (Auto) 0.4 (0-2) % Lymph # (Auto) 0.2 L (1.2-4.9) X10*3/uL [place] # (Auto) 0.4 (0.1-1.2) X10*3/uL Eos # (Auto) 0.1 (0.0-0.4) X10*3/uL Baso # (Auto) 0.0 (0.0-0.2) X10*3/uL Abs Immat Gran (auto) 0.01 (0.00-0.03) X10*3/uL Absolute Neuts (auto) 6.5 (2.0-8.3) x10*3/uL Absolute Nucleated RBC 0.000 (0.0-0.012) X10*3/uL Nucleated RBC % (auto) 0.0 (0.0-0.2) /100WBC Smear Tech's Comments VERIFIED D-Dimer High Sensitivty NG/ML Sodium 140 (135-145) mmol/L Potassium 4.2 (3.3-5.1) mmol/L Chloride 104 (96-108) mmol/L Carbon Dioxide 25 (22-29) mmol/L Anion Gap 15 (12-20) BUN 9 (9-16) mg/dL Creatinine 0.88 (0.5-1.4) mg/dL Estim Creat Clear Calc 119.9 Estimated GFR > 60 Random Glucose 94 (60-115) mg/dL Calcium 9.3 (8.4-10.2) mg/dL Total Bilirubin 0.5 (0.0-1.0) mg/dL AST 21 (5-31) U/L ALT 22 (0-31) U/L Alkaline Phosphatase 78 (39-117) U/L Troponin I High Sens (<3.5-17.0) ng/L Total Protein 7.3 (6.5-8.0) g/dL Albumin 4.1 (3.5-5.0) g/dL Urine Color Urine Appearance Urine pH (5.0-8.0) Ur Specific [place] (1.005-1.025) Urine Protein (Neg-Trace) mg/dL Urine Glucose (UA) (Negative) mg/dL Urine Ketones (Negative) mg/dL Urine Blood (Negative) Urine Nitrite (Negative) Ur Leukocyte Esterase (Negative) Urine Test (NEGATIVE) COVID-19 (JENNIFER) Positive A (Negative) COVID-19 Clin Com See Note 11/20/21 11/20/21 11/20/21 Range/Units 12:23 12:27 12:27 WBC (4.8-10.8) X10*3/uL RBC (4.20-5.50) X10*6/uL Hgb (12.0-16.0) g/dl Hct (37.0-47.0) % MCV (80.0-98.0) fL MCH (27.0-33.0) pg MCHC (31.0-35.0) g/dl RDW (11.0-16.0) % Plt Count (160-400) X10*3/uL MPV (9.4-12.3) fL Immature Gran % (Auto) (0.0-0.4) % Neut % (Auto) (45-73) % Lymph % (Auto) (20-40) % [place] % (Auto) (2-11) % Eos % (Auto) (0-4) % Baso % (Auto) (0-2) % Lymph # (Auto) (1.2-4.9) X10*3/uL [place] # (Auto) (0.1-1.2) X10*3/uL Eos # (Auto) (0.0-0.4) X10*3/uL Baso # (Auto) (0.0-0.2) X10*3/uL Abs Immat Gran (auto) (0.00-0.03) X10*3/uL Absolute Neuts (auto) (2.0-8.3) x10*3/uL Absolute Nucleated RBC (0.0-0.012) X10*3/uL Nucleated RBC % (auto) (0.0-0.2) /100WBC Smear Tech's Comments D-Dimer High Sensitivty NG/ML Sodium (135-145) mmol/L Potassium (3.3-5.1) mmol/L Chloride (96-108) mmol/L Carbon Dioxide (22-29) mmol/L Anion Gap (12-20) BUN (9-16) mg/dL Creatinine (0.5-1.4) mg/dL Estim Creat Clear Calc Estimated GFR Random Glucose (60-115) mg/dL Calcium (8.4-10.2) mg/dL Total Bilirubin (0.0-1.0) mg/dL AST (5-31) U/L ALT (0-31) U/L Alkaline Phosphatase (39-117) U/L Troponin I High Sens < 3.5 (<3.5-17.0) ng/L Total Protein (6.5-8.0) g/dL Albumin (3.5-5.0) g/dL Urine Color Yellow Urine Appearance Clear Urine pH 7.0 (5.0-8.0) Ur Specific [place] <= 1.005 (1.005-1.025) Urine Protein Negative (Neg-Trace) mg/dL Urine Glucose (UA) Negative (Negative) mg/dL Urine Ketones Negative (Negative) mg/dL Urine Blood Negative (Negative) Urine Nitrite Negative (Negative) Ur Leukocyte Esterase Negative (Negative) Urine Test NEGATIVE (NEGATIVE) COVID-19 (JENNIFER) (Negative) COVID-19 Clin Com 08/20/22 Range/Units 16:54 WBC (4.8-10.8) X10*3/uL RBC (4.20-5.50) X10*6/uL Hgb (12.0-16.0) g/dl Hct (37.0-47.0) % MCV (80.0-98.0) fL MCH (27.0-33.0) pg MCHC (31.0-35.0) g/dl RDW (11.0-16.0) % Plt Count (160-400) X10*3/uL MPV (9.4-12.3) fL Immature Gran % (Auto) (0.0-0.4) % Neut % (Auto) (45-73) % Lymph % (Auto) (20-40) % [place] % (Auto) (2-11) % Eos % (Auto) (0-4) % Baso % (Auto) (0-2) % Lymph # (Auto) (1.2-4.9) X10*3/uL [place] # (Auto) (0.1-1.2) X10*3/uL Eos # (Auto) (0.0-0.4) X10*3/uL Baso # (Auto) (0.0-0.2) X10*3/uL Abs Immat Gran (auto) (0.00-0.03) X10*3/uL Absolute Neuts (auto) (2.0-8.3) x10*3/uL Absolute Nucleated RBC (0.0-0.012) X10*3/uL Nucleated RBC % (auto) (0.0-0.2) /100WBC Smear Tech's Comments D-Dimer High Sensitivty 198 NG/ML Sodium (135-145) mmol/L Potassium (3.3-5.1) mmol/L Chloride (96-108) mmol/L Carbon Dioxide (22-29) mmol/L Anion Gap (12-20) BUN (9-16) mg/dL Creatinine (0.5-1.4) mg/dL Estim Creat Clear Calc Estimated GFR Random Glucose (60-115) mg/dL Calcium (8.4-10.2) mg/dL Total Bilirubin (0.0-1.0) mg/dL AST (5-31) U/L ALT (0-31) U/L Alkaline Phosphatase (39-117) U/L Troponin I High Sens (<3.5-17.0) ng/L Total Protein (6.5-8.0) g/dL Albumin (3.5-5.0) g/dL Urine Color Urine Appearance Urine pH (5.0-8.0) Ur Specific [place] (1.005-1.025) Urine Protein (Neg-Trace) mg/dL Urine Glucose (UA) (Negative) mg/dL Urine Ketones (Negative) mg/dL Urine Blood (Negative) Urine Nitrite (Negative) Ur Leukocyte Esterase (Negative) Urine Test (NEGATIVE) COVID-19 (JENNIFER) (Negative) COVID-19 Clin Com ECG Data Attestation: I personally reviewed and interpreted this ECG as follows: Prior ECG tracings: available for review Interpretation: Ventricular rate of 122, RI normal, QRS normal, QT/ QTC normal. EKG was sinus tachycardia, no ST elevations or inversions concerning for ischemia. When compared to previous EKG patient is now tachycardic. Critical Care Time Critical Care Time Critical Care Time: No Discharge Plan Discharge Clinical Impression: COVID-19 Patient Disposition: Home, Self-Care Instructions: COVID-19 (Coronavirus Disease 2019) (ED) Additional Instructions: Take your medications as prescribed. If you were prescribed antibiotics today, it is important that you take your medication to their entirety, do not skip any doses, do not finish them early. Today you tested positive for COVID-19. Take Ibuprofen or Tylenol as needed for fevers or body aches. Quarantine for 5 days and ensure you wear a mask. After 5 days you should wear a mask for 5 days after that. Practice social distancing and good hand hygiene. Drink plenty of fluids. Follow-up with your primary care provider this week. Return to the emergency department with new or worsening symptoms. In case of emergency call 911 You can purchase a pulse oximeter from your local pharmacy or grocery store, and monitor your oxygen saturation if it goes below 94% you should return to the emergency department for further evaluation. Prescriptions: No Action sennosides [Senna Lax] 8.6 mg tablet 17.2 mg PO BEDTIME 30 Days Qty: 60 3RF magnesium oxide 400 mg (241.3 mg magnesium) tablet 400 mg PO BEDTIME 30 Days Qty: 30 6RF albuterol sulfate 2.5 mg /3 mL (0.083 %) solution for nebulization 2.5 mg inhalation Q4-6H PRN (Reason: bronchospasm) Qty: 15 0RF albuterol sulfate 90 mcg/actuation HFA aerosol inhaler 2 puff inhalation Q4-6H PRN (Reason: shortness of breath or wheezing) Qty: 6.7 0RF ibuprofen [Children's Ibuprofen] 100 mg/5 mL suspension 600 mg PO Q6H PRN (Reason: pain) Qty: 473 0RF diphenhydramine HCl [Banophen] 25 mg capsule 25 mg PO TID PRN biotin 5 mg capsule 5 mg PO DAILY cetirizine 10 mg tablet 20 mg PO DAILY PRN (Reason: allergies) diclofenac sodium [Arthritis Pain (diclofenac)] 1 % gel 2 g topical QID 30 Days Qty: 100 3RF Rx Instructions: apply to right latter-day fluticasone propionate 50 mcg/actuation spray,suspension 2 spray intranasal DAILY PRN riboflavin (vitamin B2) [Vitamin B-2] 100 mg tablet 400 mg PO DAILY famotidine [Acid Railroad Track Repair Supervisor (famotidine)] 20 mg tablet 20 mg PO BID Qty: 60 6RF cholecalciferol (vitamin D3) 50 mcg (2,000 unit) tablet 50 mcg PO DAILY Advair HFA 230-21 mcg/actuation HFA aerosol inhaler 2 puff PO BID Saline Nasal 0.65 % aerosol,spray intranasal folic acid 800 mcg tablet 0.8 mg PO DAILY multivitamin with folic acid [Daily-Meri (with folic acid)] 400 mcg tablet 1 tab PO DAILY senna 8.6 mg capsule 17.2 mg PO BEDTIME 30 Days Qty: 60 3RF Referrals: Hollie Nicholas MD [Primary Care Provider] - 2 days Stand Alone Forms: Work/School Release Interventions: ED Discharge Assessment Last Done: 11/20/21 17:33 Discharge Date/Time: 11/20/21 17:34
[2021-11-20 17:05] LABS: Troponin-I High Sensitivity < 3.5 ng/L (<3.5-17.0)
[2021-11-20 17:07] LABS: D Dimer High Sensitivity 198 NG/ML
[2021-11-20 17:22] VITALS: BP 125/69; PULSE 112; RESP 18; TEMP 37.7; O2SAT 99
--- NOTE | 2021-11-20 17:30 | PC.NURSE ---
Patient refused tylenol. Provider notified.
== END 2021-11-20 17:35 | disposition home or self-care (01) ==
PROVIDERS: Emergency Medicine; Physician Assistant; Emergency Provider Emergency Medicine; PCP Internal Medicine
DX: U07.1 COVID-19 (principal); R50.9 Fever, unspecified; R00.0 Tachycardia, unspecified; B18.2 Chronic viral hepatitis C
CPT/HCPCS: 71045; 80053; 81003; 81025; 84484; 85025; 85379; 87635; 93005; 99283; 99284

== ENCOUNTER 2021-12-17 23:02 | Emergency (ER) | payer OTHER, SELFPAY ==
[2021-12-18 00:13] VITALS: BP 116/72; PULSE 96; RESP 20; TEMP 36.6; O2SAT 95; BMI 48.2
[2021-12-18] MEDS: Ondansetron ODT 4 MG TAB.RAPDIS TRANSLINGU (00:19)
[2021-12-18 00:52] LABS: Anion Gap 16 (12-20); Blood Urea Nitrogen 12 mg/dL (9-16); COVID-19 Test Negative (Negative); Calcium 9.2 mg/dL (8.4-10.2); Carbon Dioxide 22 mmol/L (22-29); Chloride 105 mmol/L (96-108); Creatinine Clr Calc Pharmacy 117.2; Estimated Glomerular Filt Rate > 60; Glucose Random 131 mg/dL (60-115); Sodium 139 mmol/L (135-145)
[2021-12-18 05:14] LABS: Basophils Percent Auto 0.3 % (0-2); Eosinophils Percent Auto 0.2 % (0-4); Hematocrit 40.5 % (37.0-47.0); Hemoglobin 12.8 g/dl (12.0-16.0); Imm Gran Abs Auto 0.05 X10*3/uL (0.00-0.03); Imm Gran Pct Auto 0.4 % (0.0-0.4); Lymphocytes Absolute Auto 1.5 X10*3/uL (1.2-4.9); Lymphocytes Percent Auto 11.6 % (20-40); Mean Corpuscular HGB Conc 31.6 g/dl (31.0-35.0); Mean Corpuscular Hemoglobin 26.4 pg (27.0-33.0); Mean Corpuscular Volume 83.7 fL (80.0-98.0); Mean Platelet Volume 10.2 fL (9.4-12.3); Monocytes Absolute Auto 0.7 X10*3/uL (0.1-1.2); Monocytes Percent Auto 4.9 % (2-11); Neutrophils Absolute Auto 10.9 x10*3/uL (2.0-8.3); Neutrophils Percent Auto 82.6 % (45-73); Platelet Count 203 X10*3/uL (160-400); Red Blood Count 4.84 X10*6/uL (4.20-5.50); Red Cell Distribution Width 14.2 % (11.0-16.0); White Blood Count 13.2 X10*3/uL (4.8-10.8)
[2021-12-18 05:17] LABS: MANUAL DIFF FLAG NO
--- NOTE | 2021-12-18 06:52 | ED_ITS ---
HPI - Nausea/Vomiting/Diarrhea General Chief complaint: Nausea/Vomiting/Diarrhea Stated complaint: nausea Time Seen by Provider: 12/18/21 05:26 Source: patient Mode of arrival: ambulatory Limitations: no limitations History of Present Illness HPI Narrative: Patient been nauseated and vomiting since last night and multiple episodes of vomiting also patient leaks urine whenever she throws up. Patient came out of t he shower at 22:00 felt dizzy and started throwing up, no headache no fever no chills no other family member sick patient does not get the scan the problem very often Related Data Home Medications Medication Instructions Recorded Confirmed cholecalciferol (vitamin D3) 50 50 mcg PO DAILY 05/07/21 08/20/21 mcg (2,000 unit) tablet fluticasone propionate 230 2 puff PO BID 05/07/21 08/20/21 mcg-salmeterol 21 mcg/actuation HFA inhaler (Advair HFA) folic acid 800 mcg tablet 0.8 mg PO DAILY 05/07/21 08/20/21 multivitamin with folic acid 400 1 tab PO DAILY 05/07/21 08/20/21 mcg tablet (Daily-Meri (with folic acid)) sodium chloride 0.65 % nasal spray spray intranasal 05/07/21 08/20/21 aerosol (Saline Nasal) diphenhydramine HCl 25 mg capsule 25 mg PO TID PRN 05/17/21 08/20/21 (Banophen) biotin 5 mg capsule 5 mg PO DAILY 08/20/21 08/20/21 cetirizine 10 mg tablet 20 mg PO DAILY PRN allergies 08/20/21 08/20/21 fluticasone propionate 50 2 spray intranasal DAILY PRN 09/10/21 mcg/actuation nasal spray,suspension riboflavin (vitamin B2) 100 mg 400 mg PO DAILY 09/10/21 tablet (Vitamin B-2) Previous Rx's Medication Instructions Recorded albuterol sulfate 2.5 mg/3 mL 2.5 mg (3 mL) inhalation Q4-6H PRN 11/07/20 (0.083 %) solution for nebulization bronchospasm #15 mL albuterol sulfate 90 mcg/actuation 2 puff inhalation Q4-6H PRN 11/07/20 aerosol inhaler shortness of breath or wheezing #6.7 grams ibuprofen 100 mg/5 mL oral 600 mg (30 mL) PO Q6H PRN pain 03/13/21 suspension (Children's Ibuprofen) #473 mL sennosides 8.6 mg capsule (senna) 17.2 mg PO BEDTIME constipation 30 05/07/21 days #60 caps sennosides 8.6 mg tablet (Senna 17.2 mg PO BEDTIME 30 days #60 tabs 05/07/21 Lax) magnesium oxide 400 mg (241.3 mg 400 mg PO BEDTIME 30 days #30 tabs 06/18/21 magnesium) tablet diclofenac sodium 1 % topical gel 2 g topical QID 30 days #100 grams 08/20/21 (Arthritis Pain (diclofenac)) famotidine 20 mg tablet (Acid 20 mg PO BID #60 tabs 09/10/21 Armament Aircraft Mechanic (famotidine)) meclizine 25 mg tablet 25 mg PO TID PRN dizziness #20 tabs 12/18/21 ondansetron 4 mg disintegrating 4 mg PO Q6-8H PRN nausea and 12/18/21 tablet vomiting #15 tabs Allergies Allergy/AdvReac Type Severity Reaction Status Date / Time peanut [PEANUT] Allergy Severe ANAPHYLAXIS Verified 12/18/21 00:16 clindamycin [CLINDAMYCIN] Allergy Mild UNKNOWN Verified 12/18/21 00:16 strawberry Allergy Mild Abdominal Verified 12/18/21 00:16 Pain cefaclor [From CECLOR] Allergy Unknown UNKNOWN Verified 12/18/21 00:16 erythromycin base Allergy Unknown RASH Verified 12/18/21 00:16 [ERYTHROMYCIN BASE] lemon [Lemon] AdvReac Unknown VOMITING Verified 12/18/21 00:16 SEAFOOD Allergy Severe ANAPHYLAXIS Uncoded 09/10/21 10:13 Review of Systems Review of Systems: Yes all other systems are reviewed and are negative [facility] Past Medical History Medical History Anxiety Asthma Surgical History Hx of tonsillectomy Family History Family History Father Heart disease Mother Migraine Heart disease Social History Social History Alcohol intake: never Patient Tobacco Use Status: Never used Tobacco Advance Directives: No Advance Directives Information Provided: No Physical Exam Vital Signs: Vital Signs: Last Vital Signs Temp 97.7 F 12/18/21 08:31 Pulse 87 12/18/21 08:31 Resp 18 12/18/21 08:31 BP 123/74 12/18/21 08:31 Pulse Ox 100 12/18/21 08:31 O2 Del Method 12/18/21 08:31 BMI result Body Mass Index 48.2 Appearance: Alert. Oriented X3. Nauseated and vomiting Eyes: PERRLA, No Nystagmus ENT: Pharynx normal. Oral Mucosa moist Neck: Normal inspection. Neck supple. CVS: Normal heart rate and rhythm. Pulses normal. Respiratory: No respiratory distress. Equal air entry bilateral, no wheezing/rales/rhonchi Abdomen: Soft and nontender. Bowel sounds are present, no mass palpable, no CVA tenderness Skin: Skin warm and dry. Normal skin color. Normal skin turgor. Extremities: No lower extremity edema. No calf tenderness Neuro: Oriented X 3. No motor deficit. MDM - Nausea/Vomiting/Diarrhea MDM Narrative Medical decision making narrative: Patient likely with benign positional vertigo improved after meclizine able to ambulate nausea has improved labs are stable discharge patient home on meclizine Lab Data Attestation: I reviewed the patient's lab results. Result diagrams: 12/18/21 05:09 12/18/21 00:29 Labs: Lab Results 12/18/21 12/18/21 12/18/21 Range/Units 00:29 00:29 05:09 WBC 13.2 H (4.8-10.8) X10*3/uL RBC 4.84 (4.20-5.50) X10*6/uL Hgb 12.8 (12.0-16.0) g/dl Hct 40.5 (37.0-47.0) % MCV 83.7 (80.0-98.0) fL MCH 26.4 L (27.0-33.0) pg MCHC 31.6 (31.0-35.0) g/dl RDW 14.2 (11.0-16.0) % Plt Count 203 (160-400) X10*3/uL MPV 10.2 (9.4-12.3) fL Immature Gran % (Auto) 0.4 (0.0-0.4) % Neut % (Auto) 82.6 H (45-73) % Lymph % (Auto) 11.6 L (20-40) % Butts % (Auto) 4.9 (2-11) % Eos % (Auto) 0.2 (0-4) % Baso % (Auto) 0.3 (0-2) % Lymph # (Auto) 1.5 (1.2-4.9) X10*3/uL Butts # (Auto) 0.7 (0.1-1.2) X10*3/uL Eos # (Auto) 0.0 (0.0-0.4) X10*3/uL Baso # (Auto) 0.0 (0.0-0.2) X10*3/uL Abs Immat Gran (auto) 0.05 H (0.00-0.03) X10*3/uL Absolute Neuts (auto) 10.9 H (2.0-8.3) x10*3/uL Absolute Nucleated RBC 0.000 (0.0-0.012) X10*3/uL Nucleated RBC % (auto) 0.0 (0.0-0.2) /100WBC Sodium 139 (135-145) mmol/L Potassium 4.0 (3.3-5.1) mmol/L Chloride 105 (96-108) mmol/L Carbon Dioxide 22 (22-29) mmol/L Anion Gap 16 (12-20) BUN 12 (9-16) mg/dL Creatinine 0.90 (0.5-1.4) mg/dL Estim Creat Clear Calc 117.2 Estimated GFR > 60 Random Glucose 131 H (60-115) mg/dL Calcium 9.2 (8.4-10.2) mg/dL COVID-19 (JENNIFER) Negative (Negative) COVID-19 Clin Com See Note Discharge Plan Discharge Clinical Impression: Benign paroxysmal positional vertigo Patient Disposition: Home, Self-Care Instructions: Benign Paroxysmal Positional Vertigo (ED) Additional Instructions: Drink plenty of fluids Take medication for dizziness as prescribed Take nausea medication for severe nausea Prescriptions: New meclizine 25 mg tablet 25 mg PO TID PRN (Reason: dizziness) Qty: 20 0RF ondansetron 4 mg tablet,disintegrating 4 mg PO Q6-8H PRN (Reason: nausea and vomiting) Qty: 15 0RF No Action sennosides [Senna Lax] 8.6 mg tablet 17.2 mg PO BEDTIME 30 Days Qty: 60 3RF magnesium oxide 400 mg (241.3 mg magnesium) tablet 400 mg PO BEDTIME 30 Days Qty: 30 6RF albuterol sulfate 2.5 mg /3 mL (0.083 %) solution for nebulization 2.5 mg inhalation Q4-6H PRN (Reason: bronchospasm) Qty: 15 0RF albuterol sulfate 90 mcg/actuation HFA aerosol inhaler 2 puff inhalation Q4-6H PRN (Reason: shortness of breath or wheezing) Qty: 6. 7 0RF ibuprofen [Children's Ibuprofen] 100 mg/5 mL suspension 600 mg PO Q6H PRN (Reason: pain) Qty: 473 0RF diphenhydramine HCl [Banophen] 25 mg capsule 25 mg PO TID PRN biotin 5 mg capsule 5 mg PO DAILY cetirizine 10 mg tablet 20 mg PO DAILY PRN (Reason: allergies) diclofenac sodium [Arthritis Pain (diclofenac)] 1 % gel 2 g topical QID 30 Days Qty: 100 3RF Rx Instructions: apply to right worship fluticasone propionate 50 mcg/actuation spray,suspension 2 spray intranasal DAILY PRN riboflavin (vitamin B2) [Vitamin B-2] 100 mg tablet 400 mg PO DAILY famotidine [Acid Armament Aircraft Mechanic (famotidine)] 20 mg tablet 20 mg PO BID Qty: 60 6RF cholecalciferol (vitamin D3) 50 mcg (2,000 unit) tablet 50 mcg PO DAILY Advair HFA 230-21 mcg/actuation HFA aerosol inhaler 2 puff PO BID Saline Nasal 0.65 % aerosol,spray intranasal folic acid 800 mcg tablet 0.8 mg PO DAILY multivitamin with folic acid [Daily-Meri (with folic acid)] 400 mcg tablet 1 tab PO DAILY senna 8.6 mg capsule 17.2 mg PO BEDTIME 30 Days Qty: 60 3RF Interventions: ED Discharge Assessment Last Done: 12/18/21 11:53 Discharge Date/Time: 12/18/21 11:54
[2021-12-18] MEDS: 0.9 % Sodium Chloride 1,000 ML 999 ML IV (07:36)
[2021-12-18] MEDS: ondansetron HCL 4 MG/2 ML VIAL IVPUSH (07:36)
[2021-12-18] MEDS: Meclizine HCl 25 MG TABLET 50 MG PO (08:05)
[2021-12-18 08:31] VITALS: BP 123/74; PULSE 87; RESP 18; TEMP 36.5; O2SAT 100
--- NOTE | 2021-12-18 09:12 | PC.NURSE ---
Dr. Ahmadi does not want EKG
== END 2021-12-18 11:54 | disposition home or self-care (01) ==
PROVIDERS: Emergency Provider Internal Medicine
DX: H81.10 Benign paroxysmal vertigo, unspecified ear (principal); Z20.822 Contact with and (suspected) exposure to COVID-19; R11.2 Nausea with vomiting, unspecified; E78.00 Pure hypercholesterolemia, unspecified; B18.2 Chronic viral hepatitis C; E66.01 Morbid (severe) obesity due to excess calories; Z68.42 Body mass index [BMI] 45.0-49.9, adult; Z79.899 Other long term (current) drug therapy
CPT/HCPCS: 36415; 80048; 85025; 87635; 96361; 96374; 99284; J2405

== ENCOUNTER → 2022-03-29 12:55 | Outpatient (BNVA) | payer OTHER, SELFPAY | PROVIDERS: PCP Internal Medicine; Visit Provider Nurse Practitioner | DX: K21.9 Gastro-esophageal reflux disease without esophagitis (principal); K59.00 Constipation, unspecified; K64.9 Unspecified hemorrhoids; K80.20 Calculus of gallbladder without cholecystitis without obstruction; E66.01 Morbid (severe) obesity due to excess calories; Z68.42 Body mass index [BMI] 45.0-49.9, adult; Z79.899 Other long term (current) drug therapy | CPT/HCPCS: 99212 ==

== ENCOUNTER 2022-04-05 16:39 | Outpatient (REF) | payer OTHER, SELFPAY ==
--- NOTE | ~2022-04-05 | CT_ITS ---
CT HEAD WITHOUT IV CONTRAST INDICATION: Migraine with aura. COMPARISON: Head CT 09/25/2014. TECHNIQUE: Multidetector CT acquisitions of the head was obtained without IV contrast. This CT examination was performed using dose optimization techniques as appropriate, variously including the following: *Automated exposure control *Adjustment of mA and/or kV according to patient size (this includes techniques or standardized protocols for targeted exams where dose is matched to indication/reason for exam; i.e. extremities or head) *Use of iterative reconstruction technique FINDINGS: There is no intracranial hemorrhage, hydrocephalus, extra-axial surface collection, midline shift, or other herniation pattern. Gayle to white matter differentiation is diffusely maintained without evidence of an evolved acute territorial infarct. The basilar cisterns are preserved. No significant soft tissue abnormality. No acute osseous abnormality. There is cerumen within the external auditory canals bilaterally. Moderate mucosal thickening within the ethmoid air cells bilaterally and within the left sphenoid sinus. CT/CT head/brain wo IV con IMPRESSION: - No acute intracranial abnormality. - There is cerumen within the external auditory canals bilaterally. - Moderate mucosal thickening within the ethmoid air cells bilaterally and within the left sphenoid sinus.
== END 2022-04-05 16:40 | disposition home or self-care (01) ==
LOC: HO.CT 16:39
PROVIDERS: PCP Internal Medicine; Visit Provider Nurse Practitioner Family
DX: G43.109 Migraine with aura, not intractable, without status migrainosus (principal); R42 Dizziness and giddiness
CPT/HCPCS: 70450

== ENCOUNTER → 2022-09-09 08:51 | Outpatient (BNVA) | payer OTHER, SELFPAY | PROVIDERS: PCP Internal Medicine; Visit Provider Nurse Practitioner Family ==

== ENCOUNTER 2022-11-15 12:34 | Outpatient (AMB) | payer OTHER, SELFPAY ==
--- NOTE | 2022-11-15 12:53 | MHC.OFFVIS ---
Intake Vital Signs 11/15/22 12:54 11/15/22 13:39 Height 5 ft 5 in Weight 304 lb 3.806 oz BMI 50.6 BP 138/90 H 128/88 Blood Pressure Location Lt brachial Lt brachial Position Sitting Sitting Intake Visit Reasons: 6 month fu Intake Note: Patient presents to in office visit today in follow up of IBS. CC: Patient c/o blood in stool before her period and getting abdominal cramps. She states she has not been taking the medication prescribed to her as she is trying not to take too much medications. She states apple juice helps her go to the BR. Hospital Manager Required: No Allergies peanut [PEANUT] Allergy (Severe, Verified 11/15/22 12:58) ANAPHYLAXIS clindamycin [CLINDAMYCIN] Allergy (Mild, Verified 11/15/22 12:58) UNKNOWN strawberry Allergy (Mild, Verified 11/15/22 12:58) Abdominal Pain amoxicillin [From Augmentin] Allergy (Unknown, Verified 11/15/22 12:58) Unknown cefaclor [From CECLOR] Allergy (Unknown, Verified 11/15/22 12:58) UNKNOWN clavulanic acid [From Augmentin] Allergy (Unknown, Verified 11/15/22 12:58) Unknown erythromycin base [ERYTHROMYCIN BASE] Allergy (Unknown, Verified 11/15/22 12:58) RASH lemon [Lemon] Adverse Reaction (Unknown, Verified 11/15/22 12:58) VOMITING SEAFOOD Allergy (Severe, Uncoded 09/09/22 08:56) ANAPHYLAXIS berries Allergy (Unknown, Uncoded 09/09/22 08:56) Unknown HPI 6 month fu HPI Details Assessment & Plan (1) GERD (gastroesophageal reflux disease): ?Code(s): K21.9 - Gastro-esophageal reflux disease without esophagitis ?Plan: She is doing well on her famotidine, but her spinal provider provider will be starting her on meloxicam, so we will increase the famotidine to 40mg bid to protect.? He she also takes ibuprofen that is prescribed to her and I general counselor her that once she starts meloxicam she should avoid ibuprofen she because they are the same class of medication.? I tell her that it is perfectly all right to take Tylenol as she has a prescription for this at 325 mg dose. He as we discussed in the past, she still has some diarrhea he and rectal bleeding but only right before her menses and not any other time.? She also knows that she has at least 1 external hemorrhoid that is not painful but she does express concern as to whether having anal sex is a problem with regard to the hemorrhoid.? I instruct her that she should try to be sure to use a lot of good lubrication she as the friction could be irritating to a hemorrhoid.? She should she ever develop pain or severe bleeding then she may wish to discontinue this practice until has a chance to heal.? I will also send her some Proctosol cream to treat this with to see if she can reduce it in via this method. ROV 6 mos. (2) Constipation: ?Code(s): K59.00 - Constipation, unspecified (3) Bleeding hemorrhoids: ?Code(s): K64.9 - Unspecified hemorrhoids (4) Morbid obesity: ?Code(s): E66.01 - Morbid (severe) obesity due to excess calories ? ? ? Medications: New Proctosol HC 2.5% (hydrocortisone) 1 appl? DC BID PRN 28.35 grams 3RF h emorrhoids NS K64.9 - Unspecifie d hemorrhoids ? famotidine (Pepcid ) 40 mg? PO BID 60 t abs 3RF K21.9 - Gastro-eso phageal reflux dis ease without esoph agitis ? Discontinued famotidine (Acid R educer (famotidine )) ?? Discontinued Reason:? Doctor's Order 20 mg? PO BID 60 t abs 6RF TODAY'S VISIT She has been having worse cramping during her periods, which she feels is from her bowels, she has IBS sx with tenesmus and only moving small hard stools several times a day. But this only happens twice a month at the beginning and end of her menses. She did not try the proctosol yet for the bleeding before her periods. I will resend this. I suggest a trial of bentyl during her periods. Her GERD is well controlled on famotidine. Her son is having unexplained abdominal pain, but is on singulair (we discuss s/e with this med). Long not saying this is because I let her know that he might want to try stopping the med and see if his pain improves since they have not found any other explanation. Of course that should coordinate this with the prescribing provider. She is trying to get for another child. She is seeing a adobe flex developer for wt loss. ROV 6 mos. PFSH Medical History Anxiety Asthma Surgical History Hx of tonsillectomy Family History Father Heart disease Mother Migraine Heart disease Social History Alcohol intake: never Patient Tobacco Use Status: Never used Tobacco Review of Systems Const Denies fatigue, Denies fever(s), Denies night sweats, Denies poor appetite and Denies weight loss ENT Reports Normal hearing present, Denies dental pain, Denies dysphagia, Denies hearing loss, Denies mouth pain, Denies odynophagia, Denies throat swelling, Denies tongue swelling and Reports other (Dentition adequate) Card Reports no additional complaints Resp Reports no additional complaints GI Denies abdominal pain, Denies melena, Denies bloating, Reports hematochezia, Reports constipation, Reports GI cramping, Denies dysphagia, Denies excessive flatus, Denies early satiety, Reports heartburn, Denies diarrhea, Denies nausea, Denies odynophagia, Denies vomiting and Denies hematemesis Skin/Breast Denies pruritus, Denies lesions, Denies rash and Denies jaundice Neuro Reports Normal hearing present and Denies Abnormal speech present Endo Denies fatigue Aller/Immun Denies throat swelling and Denies tongue swelling Physical Exam Vital Signs: Last Vital Signs BP 128/88 11/15/22 13:39 BMI result Body Mass Index 50.6 Const General: cooperative, no acute distress, well developed and well groomed Nutritional Appearance: well nourished and obese morbidly obese Orientation/consciousness: oriented to person, oriented to place and oriented to time Limitations: No language barrier HEENT Head: Yes normocephalic and Yes atraumatic Eyes General: appearance normal, both eyes and all related structures Pupils: Equal, round and reactive pupils present Neck Neck: Yes normal visual inspection and Yes no lymphadenopathy Thyroid: Thyroid normal Resp Effort & Inspection: normal respiratory effort and able to speak in complete sentences Auscultation: clear to auscultation bilaterally Cardio Rate: regular rate Rhythm: regular rhythm Heart sounds: Normal, physiologic split S2 sound present Peripheral pulses: radial pulses present and posterior tibial pulses present GI Inspection: No distended, Yes Abdominal panniculus present and Yes obesity Palpation (GI): Soft to palpation, nontender, no guarding, not rigid and No hepatosplenomegaly present Percussion: Yes normal to percussion Auscultation: normal bowel sounds Rectal Exam - Female: deferred Skin General skin exam: no rashes or lesions noted, turgor normal, skin not dry, no jaundice, No spider nevi and no striae Rashes: no rashes Nails: normal Neuro General: oriented to person, oriented to place and oriented to time Cranial nerves: Yes Equal, round and reactive pupils present and Yes Normal hearing present Speech: No Abnormal speech present Extrem General: Yes normal to inspection, No clubbing, No cyanosis and No edema Psych Appearance: grossly normal and well kempt Mental Status: mental status grossly normal Speech and movement: Normal speech and movement present Affect: normal affect Attitude: cooperative Thought process: Normal thought process present and not confabulating Thought content: Normal thought content present Insight: Limited insight present (Psych) Judgement: Limited judgement present (Psych) Assessment & Plan Assessment & Plan (1) GERD (gastroesophageal reflux disease): Code(s): K21.9 - Gastro-esophageal reflux disease without esophagitis Plan: She has been having worse cramping during her periods, which she feels is from her bowels, she has IBS sx with tenesmus and only moving small hard stools several times a day. But this only happens twice a month at the beginning and end of her menses. She did not try the proctosol yet for the bleeding before her periods. I will resend this. I suggest a trial of bentyl during her periods. Her GERD is well controlled on famotidine. Her son is having unexplained abdominal pain, but is on singulair (we discuss s/e with this med). Long not saying this is because I let her know that he might want to try stopping the med and see if his pain improves since they have not found any other explanation. Of course that should coordinate this with the prescribing provider. She is trying to get for another child. She is seeing a adobe flex developer for wt loss. ROV 6 mos. (2) Constipation: Code(s): K59.00 - Constipation, unspecified Medications: New dicyclomine 20 mg PO QID 120 tabs 1RF 30 days Refilled Proctosol HC 2.5% (hydrocortisone) 1 appl DC BID PRN 28.35 grams 3RF hemorrhoids NS K64.9 - Unspecified hemorrhoids Coding Level of Care Code Est Pt Level 3 (51321) Diagnoses GERD (gastroesophageal reflux disease) K21.9 Constipation K59.00
[2022-11-15 12:54] VITALS: BP 138/90; BMI 50.6
[2022-11-15 13:39] VITALS: BP 128/88
== END 2022-11-15 13:38 | disposition home or self-care (01) ==
PROVIDERS: PCP Internal Medicine; Visit Provider Nurse Practitioner
DX: K21.9 Gastro-esophageal reflux disease without esophagitis (principal); K59.00 Constipation, unspecified
CPT/HCPCS: 99213

== ENCOUNTER → 2022-11-15 12:34 | Outpatient (BNVA) | payer OTHER, SELFPAY | PROVIDERS: PCP Internal Medicine; Visit Provider Nurse Practitioner | DX: K21.9 Gastro-esophageal reflux disease without esophagitis (principal); K59.00 Constipation, unspecified | CPT/HCPCS: 99212 ==

== ENCOUNTER 2022-12-20 13:34 | Emergency (ER) | payer OTHER, SELFPAY ==
[2022-12-20 14:52] VITALS: BP 133/83; PULSE 80; RESP 18; TEMP 36.2; O2SAT 97; BMI 48.4
--- NOTE | 2022-12-20 14:54 | ED.NAVMDI ---
HPI - Nausea/Vomiting/Diarrhea General Chief complaint: Abdominal Pain Stated complaint: Diarrhea Chest Pain X 2 Days Time Seen by Provider: 12/20/22 21:06 Source: patient Mode of arrival: ambulatory History of Present Illness HPI Narrative: 37-year-old female with presentation of abdominal cramping with nausea and intermittent soft stools since eating questionable chicken 12/11. Patient denies any associated fever, chills but also states that she has had weakness with nonspecific chest pain that does not increase with deep inspiration. She reports a normal appetite and does identify some urinary frequency. Related Data Home Medications Medication Instructions Recorded Confirmed cholecalciferol (vitamin D3) 50 50 mcg PO DAILY 05/07/21 09/09/22 mcg (2,000 unit) tablet fluticasone propionate 230 2 puff PO BID 05/07/21 09/09/22 mcg-salmeterol 21 mcg/actuation HFA inhaler (Advair HFA) folic acid 800 mcg tablet 0.8 mg PO DAILY 05/07/21 09/09/22 multivitamin with folic acid 400 1 tab PO DAILY 05/07/21 09/09/22 mcg tablet (Daily-Meri (with folic acid)) sodium chloride 0.65 % nasal spray spray intranasal 05/07/21 09/09/22 aerosol (Saline Nasal) diphenhydramine HCl 25 mg capsule 25 mg PO TID PRN 05/17/21 09/09/22 (Banophen) biotin 5 mg capsule 5 mg PO DAILY 08/20/21 09/09/22 cetirizine 10 mg tablet 20 mg PO DAILY PRN allergies 08/20/21 09/09/22 fluticasone propionate 50 2 spray intranasal DAILY PRN 09/10/21 09/09/22 mcg/actuation nasal spray,suspension acetaminophen 325 mg tablet 325 mg PO Q4H PRN pain 03/29/22 09/09/22 Previous Rx's Medication Instructions Recorded albuterol sulfate 2.5 mg/3 mL 2.5 mg (3 mL) inhalation Q4-6H PRN 11/07/20 (0.083 %) solution for nebulization bronchospasm #15 mL albuterol sulfate 90 mcg/actuation 2 puff inhalation Q4-6H PRN 11/07/20 aerosol inhaler shortness of breath or wheezing #6.7 grams ibuprofen 100 mg/5 mL oral 600 mg (30 mL) PO Q6H PRN pain 03/13/21 suspension (Children's Ibuprofen) #473 mL meclizine 25 mg tablet 25 mg PO TID PRN dizziness #20 tabs 12/18/21 ondansetron 4 mg disintegrating 4 mg PO Q6-8H PRN nausea and 12/18/21 tablet vomiting #15 tabs docusate sodium 100 mg capsule 100 mg PO .DAILY WITH FOOD 30 days 05/06/22 (Colace) #30 caps riboflavin (vitamin B2) 100 mg 400 mg (4 x 100 mg) PO DAILY 90 09/08/22 tablet (Vitamin B-2) days #360 tabs famotidine 40 mg tablet 40 mg PO BID 90 days #180 tabs 11/14/22 Proctosol HC 2.5 % topical cream 1 appl CO BID PRN hemorrhoids 11/15/22 perineal applicator #28.35 grams (hydrocortisone) dicyclomine 20 mg tablet 20 mg PO QID 30 days #120 tabs 11/15/22 ondansetron HCl 4 mg tablet 4 mg PO Q8H PRN nausea and 12/20/22 vomiting 4 days #7 tabs Allergies Allergy/AdvReac Type Severity Reaction Status Date / Time peanut [PEANUT] Allergy Severe ANAPHYLAXIS Verified 11/15/22 12:58 clindamycin [CLINDAMYCIN] Allergy Mild UNKNOWN Verified 11/15/22 12:58 strawberry Allergy Mild Abdominal Verified 11/15/22 12:58 Pain amoxicillin [From Augmentin] Allergy Unknown Unknown Verified 11/15/22 12:58 cefaclor [From CECLOR] Allergy Unknown UNKNOWN Verified 11/15/22 12:58 clavulanic acid Allergy Unknown Unknown Verified 11/15/22 12:58 [From Augmentin] erythromycin base Allergy Unknown RASH Verified 11/15/22 12:58 [ERYTHROMYCIN BASE] lemon [Lemon] AdvReac Unknown VOMITING Verified 11/15/22 12:58 SEAFOOD Allergy Severe ANAPHYLAXIS Uncoded 09/09/22 08:56 berries Allergy Unknown Unknown Uncoded 09/09/22 08:56 Review of Systems Review of Systems: Pertinent positives and negatives as stated in [facility] Past Medical History Source: nursing notes reviewed Medical History Anxiety Asthma Surgical History Hx of tonsillectomy Family History Family History Father Heart disease Mother Migraine Heart disease Social History Social History Alcohol intake: never Patient Tobacco Use Status: Never used Tobacco Advance Directives: No Advance Directives Information Provided: No Physical Exam Vital Signs: Vital Signs: Last Vital Signs Temp 97.2 F 12/20/22 14:52 Pulse 80 12/20/22 14:52 Resp 18 12/20/22 14:52 BP 133/83 12/20/22 14:52 Pulse Ox 97 12/20/22 14:52 O2 Del Method Room Air 12/20/22 14:52 BMI result Body Mass Index 48.4 VITAL SIGNS: Reviewed. GENERAL: Elevated BMI, Well developed, well nourished, in no acute distress. HEAD: Normocephalic/atraumatic EYES: PERRLA, EOMI EARS: Ext canals without abnormality, TMs non-bulging and non-erythematous NOSE: Nares patent bilateral OROPHARYNX: no oral lesions noted, posterior pharynx clear and non-erythematous without noted tonsillar enlargement/erythema/exudates NECK: Supple, no adenopathy LUNGS: Normal breath sounds. No adventitious sounds or accessory muscle use. SpO2<97> CARDIOVASCULAR: Regular rate and rhythm without noted murmurs, no JVD or lower extremity edema. ABDOMEN: Soft, non-tender, non-distended with bowel sounds. No rigidity. No guarding. No palpable masses or hernias noted MUSCULOSKELETAL: No tenderness, deformities, or effusions noted on gross inspection. EXTREMITIES: No cyanosis, clubbing or edema. SKIN: Inspection of the skin reveals no rashes, ulcerations, jaundice, pallor, or petechiae. NEUROLOGIC: Alert and oriented x 4. Strength and sensation to light touch were grossly intact x 4. Course Course Course Narrative: This is an RME: Additional HPI, ROS, PE not included below will be deferred to primary provider. This is a [id number]-female presenting to the emergency department with frequent bowel movements since Monday. Admitting occasional diarrhea sometimes soft, with diffuse abdominal cramping, weakness, nausea, abdominal pain. She is eating normally, endorsing urinary frequency and of normal. This month she has had 2 neagtive tests over the last 4 days. Patient is well-appearing, vital signs stable. Plan: Labs, EKG, UA, U preg Medical Decision Making Medical Decision Making [facility] Narrative: 37-year-old female with history and clinical presentation, DDX: Gastroenteritis, viral illness, food poisoning, UTI I reviewed all investigations and hematologic indices are negative for leukocytosis or left shift, no anemia or thrombocytopenia. Chemistry in to sees are grossly within normal limits without DEMI and no evidence of electrolyte or liver enzyme abnormalities. I sensitivity troponin is undetectable, lipase is not elevated and there is no associated epigastric discomfort. Urinalysis is negative for UTI or hematuria, urine test is negative. Viral testing for COVID-19 and influenza are negative. EKG is normal sinus rhythm without STEMI. My interpretation that patient is suffering from possible viral gastroenteritis or tail end of food poisoning, however she is tolerating oral intake and will be discharged with antinausea medication instructed follow-up with her primary care doctor. Differential Diagnosis Differential Diagnoses: The differential diagnosis associated with the presentation includes Please see the discussion above Admission/Observation Consideration of admission/observation: Escalation of care including admission/observation considered Please see the discussion above Lab Data [facility] Lab Attestation statement: I reviewed the patient's lab results. Please see the discussion above 12/20/22 15:31 12/20/22 15:31 Labs: Lab Results 12/20/22 Range/Units 15:31 WBC 7.9 (4.8-10.8) X10*3/uL RBC 5.07 (4.20-5.50) X10*6/uL Hgb 13.1 (12.0-16.0) g/dl Hct 41.4 (37.0-47.0) % MCV 81.7 (80.0-98.0) fL MCH 25.8 L (27.0-33.0) pg MCHC 31.6 (31.0-35.0) g/dl RDW 13.8 (11.0-16.0) % Plt Count 229 (160-400) X10*3/uL MPV 10.2 (9.4-12.3) fL Immature Gran % (Auto) 0.3 (0.0-0.4) % Neut % (Auto) 70.3 (45-73) % Lymph % (Auto) 23.3 (20-40) % Mckinley % (Auto) 4.3 (2-11) % Eos % (Auto) 1.4 (0-4) % Baso % (Auto) 0.4 (0-2) % Lymph # (Auto) 1.8 (1.2-4.9) X10*3/uL Mckinley # (Auto) 0.3 (0.1-1.2) X10*3/uL Eos # (Auto) 0.1 (0.0-0.4) X10*3/uL Baso # (Auto) 0.0 (0.0-0.2) X10*3/uL Abs Immat Gran (auto) 0.02 (0.00-0.03) X10*3/uL Absolute Neuts (auto) 5.5 (2.0-8.3) x10*3/uL Absolute Nucleated RBC 0.000 (0.0-0.012) X10*3/uL Nucleated RBC % (auto) 0.0 (0.0-0.2) /100WBC Sodium 138 (135-145) mmol/L Potassium 3.9 (3.3-5.1) mmol/L Chloride 108 (96-108) mmol/L Carbon Dioxide 22 (22-29) mmol/L Anion Gap 12 (12-20) BUN 6 L (9-16) mg/dL Creatinine 0.82 (0.5-1.4) mg/dL Estim Creat Clear Calc 127.8 Estimated GFR > 60 Random Glucose 88 (60-115) mg/dL Calcium 9.6 (8.4-10.2) mg/dL Magnesium 2.2 (1.6-2.6) mg/dL Total Bilirubin 0.5 (0.0-1.0) mg/dL Direct Bilirubin 0.2 (0.0-0.5) mg/dL AST 22 (5-31) U/L ALT 18 (0-31) U/L Alkaline Phosphatase 86 (39-117) U/L Troponin I High Sens < 2.7 (<3.5-17.0) ng/L Total Protein 7.4 (6.5-8.0) g/dL Albumin 4.0 (3.5-5.0) g/dL Lipase 10 (8-78) U/L Urine Color Dark Yellow Urine Appearance Clear Urine pH 6.5 (5.0-9.0) Ur Specific Mulino 1.015 (1.005-1.025) Urine Protein Negative (Neg-Trace) mg/dL Urine Glucose (UA) Negative (Negative) mg/dL Urine Ketones Negative (Negative) mg/dL Urine Blood Negative (Negative) Urine Nitrite Negative (Negative) Ur Leukocyte Esterase Negative (Negative) Urine Test NEGATIVE (NEGATIVE) Influenza Type A (PCR) NEGATIVE (Negative) Influenza Type B (PCR) NEGATIVE (Negative) RSV RNA Qual (PCR) NEGATIVE (Negative) SARS-CoV-2 RNA (RT-PCR) NEGATIVE (Negative) Independent Interpretation I performed an independent interpretation of an: EKG Interpretation: Normal sinus rhythm, HR-92, no STEMI, CO/QRS/QTC is within normal limits. External Record Review External record reviewed: Outpatient record, Prior outpatient labs and Prior outpatient radiology Chronic Conditions Patient?s care impacted by: Other Hepatitis C Discharge Plan Discharge Clinical Impression: Gastroenteritis, Food poisoning Patient Disposition: Home, Self-Care Instructions: Gastroenteritis (ED), Nutrition Tips for Relief of Diarrhea (ED) Additional Instructions: 1. Resume your home medications. 2. Follow-up with your primary care provider. Your workup today is benign, however your primary care provider may want to do additional testing. Return to the ER for any acute worsening of your symptoms. Prescriptions: New ondansetron HCl 4 mg tablet 4 mg PO Q8H PRN (Reason: nausea and vomiting) 4 Days Qty: 7 0RF No Action docusate sodium [Colace] 100 mg capsule 100 mg PO .DAILY WITH FOOD 30 Days Qty: 30 6RF riboflavin (vitamin B2) [Vitamin B-2] 100 mg tablet 400 mg PO DAILY 90 Days Qty: 360 3RF famotidine 40 mg tablet 40 mg PO BID 90 Days Qty: 180 1RF albuterol sulfate 2.5 mg /3 mL (0.083 %) solution for nebulization 2.5 mg inhalation Q4-6H PRN (Reason: bronchospasm) Qty: 15 0RF albuterol sulfate 90 mcg/actuation HFA aerosol inhaler 2 puff inhalation Q4-6H PRN (Reason: shortness of breath or wheezing) Qty: 6.7 0RF ibuprofen [Children's Ibuprofen] 100 mg/5 mL suspension 600 mg PO Q6H PRN (Reason: pain) Qty: 473 0RF meclizine 25 mg tablet 25 mg PO TID PRN (Reason: dizziness) Qty: 20 0RF ondansetron 4 mg tablet,disintegrating 4 mg PO Q6-8H PRN (Reason: nausea and vomiting) Qty: 15 0RF diphenhydramine HCl [Banophen] 25 mg capsule 25 mg PO TID PRN biotin 5 mg capsule 5 mg PO DAILY cetirizine 10 mg tablet 20 mg PO DAILY PRN (Reason: allergies) fluticasone propionate 50 mcg/actuation spray,suspension 2 spray intranasal DAILY PRN acetaminophen 325 mg tablet 325 mg PO Q4H PRN (Reason: pain) hydrocortisone [Proctosol HC] 2.5 % cream with perineal applicator 1 appl CO BID PRN (Reason: hemorrhoids) Qty: 28.35 3RF dicyclomine 20 mg tablet 20 mg PO QID 30 Days Qty: 120 1RF cholecalciferol (vitamin D3) 50 mcg (2,000 unit) tablet 50 mcg PO DAILY Advair HFA 230-21 mcg/actuation HFA aerosol inhaler 2 puff PO BID Saline Nasal 0.65 % aerosol,spray intranasal folic acid 800 mcg tablet 0.8 mg PO DAILY multivitamin with folic acid [Daily-Meri (with folic acid)] 400 mcg tablet 1 tab PO DAILY Referrals: Karin Clemente MD [Primary Care Provider] - Stand Alone Forms: Work/School Release Interventions: ED Discharge Assessment Last Done: 12/20/22 21:37 Discharge Date/Time: 12/20/22 21:38
--- NOTE | 2022-12-20 14:56 | ECG_ITS ---
Test Reason : chest pain Blood Pressure : / mmHG Vent. Rate : 092 BPM Atrial Rate : 092 BPM P-R Int : 134 ms QRS Dur : 078 ms QT Int : 370 ms P-R-T Axes : 039 015 017 degrees QTc Int : 457 ms Normal sinus rhythm Normal ECG When compared with ECG of 20-NOV-2021 12:16, Heart rate has decreased Referred By: Jolie Coleman Electronically Signed By:NANNETTE BRIONES
[2022-12-20 15:39] LABS: MANUAL DIFF FLAG NO
[2022-12-20 15:42] LABS: Basophils Percent Auto 0.4 % (0-2); Eosinophils Absolute Auto 0.1 X10*3/uL (0.0-0.4); Eosinophils Percent Auto 1.4 % (0-4); Hematocrit 41.4 % (37.0-47.0); Hemoglobin 13.1 g/dl (12.0-16.0); Imm Gran Abs Auto 0.02 X10*3/uL (0.00-0.03); Imm Gran Pct Auto 0.3 % (0.0-0.4); Lymphocytes Absolute Auto 1.8 X10*3/uL (1.2-4.9); Lymphocytes Percent Auto 23.3 % (20-40); Mean Corpuscular HGB Conc 31.6 g/dl (31.0-35.0); Mean Corpuscular Hemoglobin 25.8 pg (27.0-33.0); Mean Corpuscular Volume 81.7 fL (80.0-98.0); Mean Platelet Volume 10.2 fL (9.4-12.3); Monocytes Absolute Auto 0.3 X10*3/uL (0.1-1.2); Monocytes Percent Auto 4.3 % (2-11); Neutrophils Absolute Auto 5.5 x10*3/uL (2.0-8.3); Neutrophils Percent Auto 70.3 % (45-73); Platelet Count 229 X10*3/uL (160-400); Red Blood Count 5.07 X10*6/uL (4.20-5.50); Red Cell Distribution Width 13.8 % (11.0-16.0); White Blood Count 7.9 X10*3/uL (4.8-10.8)
[2022-12-20 15:45] LABS: Appearance Urine Clear; Color Urine Dark Yellow; Glucose Urine UA Negative (Negative); Leukocyte Esterase Urine Negative (Negative); Nitrite Urine Negative (Negative); PH 6.5 (5.0-9.0); Specific Gravity - Urine 1.015 (1.005-1.025); Urine Blood Negative (Negative); Urine Ketones Negative (Negative); Urine Protein Negative (Neg-Trace)
[2022-12-20 15:48] LABS: UPreg QC Valid YES; Urine Pregnancy NEGATIVE (NEGATIVE)
[2022-12-20 15:58] LABS: Alanine Aminotransferase 18 U/L (0-31); Alkaline Phosphatase 86 U/L (39-117); Anion Gap 12 (12-20); Aspartate Amino Transferase 22 U/L (5-31); Bilirubin Direct 0.2 mg/dL (0.0-0.5); Bilirubin Total 0.5 mg/dL (0.0-1.0); Blood Urea Nitrogen 6 mg/dL (9-16); Calcium 9.6 mg/dL (8.4-10.2); Carbon Dioxide 22 mmol/L (22-29); Chloride 108 mmol/L (96-108); Creatinine Clr Calc Pharmacy 127.8; Estimated Glomerular Filt Rate > 60; Glucose Random 88 mg/dL (60-115); Lipase 10 U/L (8-78); Magnesium 2.2 mg/dL (1.6-2.6); Potassium 3.9 mmol/L (3.3-5.1); Sodium 138 mmol/L (135-145); Total Protein 7.4 g/dL (6.5-8.0)
[2022-12-20 16:04] LABS: Troponin-I High Sensitivity < 2.7 ng/L (<3.5-17.0)
[2022-12-20 16:19] LABS: Influenza A PCR NEGATIVE (Negative); Influenza B PCR NEGATIVE (Negative); Resp Syncy Virus RNA Qual PCR NEGATIVE (Negative); SARS COV2 PCR INHOUSE NEGATIVE (Negative)
== END 2022-12-20 21:38 | disposition home or self-care (01) ==
PROVIDERS: Physician Assistant Medical; Emergency Provider Student in an Organized Health Care Education/Training Program; PCP Internal Medicine
DX: K52.9 Noninfective gastroenteritis and colitis, unspecified (principal); A05.9 Bacterial foodborne intoxication, unspecified; Z20.822 Contact with and (suspected) exposure to COVID-19; Z20.828 Contact with and (suspected) exposure to other viral communicable diseases; E78.00 Pure hypercholesterolemia, unspecified; E66.01 Morbid (severe) obesity due to excess calories; Z68.42 Body mass index [BMI] 45.0-49.9, adult; Z79.899 Other long term (current) drug therapy
CPT/HCPCS: 0241U; 36415; 80048; 80076; 81003; 81025; 83690; 83735; 84484; 85025; 93005; 99283

== ENCOUNTER 2023-05-05 10:08 | Emergency (ER) | payer OTHER, SELFPAY ==
[2023-05-05 10:09] VITALS: BP 155/75; PULSE 94; RESP 16; TEMP 36.5; O2SAT 97; BMI 49.9
--- OUTSIDE RECORDS SUMMARY | 2023-05-05 10:26 | XMS_ITS | Continuity of Care Document ---
Author Name Unknown Organization [facility] ter Address [address] [place] [id number]- Care Team Providers Care Diving Judge Name Role Phone Bryn VILLALOBOS, Karin Primary Care Physician [phone] Encounter [facility] Date(s): 11/14/22 - 03/18/[address] [id number]- Attending Physician: Devon Jackson MD Admitting Physician: Devon Jackson MD Referring Physician: Devon Jackson MD Allergies, Adverse Reactions, Alerts Substance Reaction Severity Status clindamycin Active erythromycin Active Ceclor Active Peanuts Active Maribeth Active cephalosporins Active Augmentin Active Seafood Active Immunizations Given and Recorded Vaccine Date Status Refusal Reason tetanus/diphtheria/pertussis, acel(Tdap) 09/30/20 Given Medications albuterol CFC free 90 mcg/inh inhalation aerosol 2 puffs, Inhalation, 4 times a day, # 1 each, 0 Refills, Maintenance, 06/30/14 11:02:04 Start Date: 06/30/14 Status: Ordered biotin 5000 mcg oral tablet, disintegrating 1 tablet = 5,000 mcg, By Mouth, Daily, 0 Refills, Maintenance, 03/19/18 8:25:35 EST Start Date: 03/19/18 Status: Ordered control control, Refills 0, Maintenance, 12/21/15 10:10:29, Compound Start Date: 12/21/15 Status: Ordered famotidine 20 mg oral tablet 20 mg, 1, tablet, By Mouth, 2 times a day, # 60 tablet, Refills 0, Tot. Refills 0, Maintenance, 11/08/15 23:07:54, Print Requisition Start Date: 11/08/15 Stop Date: 12/08/15 Status: Ordered Flonase 50 mcg/inh nasal spray 1 sprays, Nares, Both, 2 times a day, # 16 Gm, 0 Refills, Maintenance, 04/24/16 23:06:14, [place] Start Date: 04/24/16 Status: Ordered Flovent HFA 44 mcg/inh inhalation aerosol Inhalation, 2 times a day, 0 Refills, Maintenance, 03/19/18 8:24:58 EST Start Date: 03/19/18 Status: Ordered Folic Acid Daily, 0 Refills, Maintenance, 03/19/18 8:25:23 EST Start Date: 03/19/18 Status: Ordered hydrocortisone topical valerate 0.2% cream 1 applicator, Topically, 2 times a day, 0 Refills, Maintenance, 03/19/18 8:26:07 EST Start Date: 03/19/18 Status: Ordered magnesium oxide 400 mg oral tablet 1 tablet = 400 mg, By Mouth, Daily, # 7 tablet, 0 Refills, Maintenance, 06/05/20 0:56:00 EST, Tablet, Partial fill upon patient request if the prescription is for a schedule II opioid drug. Start Date: 06/05/20 Stop Date: 06/12/20 Status: Ordered Mapap 325 mg oral tablet 2 tablet = 650 mg, By Mouth, Every 4 hours, 0 Refills, Maintenance, 03/19/18 8:27:49 EST Start Date: 03/19/18 Status: Ordered nortriptyline 25 mg oral capsule 25 mg, 1, capsule, By Mouth, Daily at bedtime, # 30 capsule, Refills 5, Tot. Refills 5, Maintenance, 11/25/16 11:15:31, Route to Pharmacy Electronically, [id number], [facility] [id number] [facility] Start Date: 11/25/16 Stop Date: 05/24/17 Status: Ordered riboflavin 400 mg oral capsule 1 capsule = 400 mg, By Mouth, Daily, # 100 capsule, 2 Refills, Maintenance, 05/31/19 10:04:00 EST, Capsule, [id number], 165, cm, 03/16/18 15:45:00 EST, Height, 125.9, kg, 02/01/19 20:19:00 EDT, Dry Weight Start Date: 05/31/19 Status: Ordered RIBOFLAVIN 400 MG TABLET 1, tablet, By Mouth, Daily, # 100 tablet, Refills 0, Maintenance, 04/04/19 7:42:00 EST, Compound, 165, cm, 03/16/18 15:45:00 EST, Height, 125.9, kg, 02/01/19 20:19:00 EDT, Dry Weight Start Date: 04/04/19 Status: Ordered Tab-A-Meri Tab-A-Meri, Refills 0, Maintenance, 03/19/18 8:22:13 EST, Compound Start Date: 03/19/18 Status: Ordered vitamin d3 2000iu vitamin d3 2000iu, Refills 0, Maintenance, 03/19/18 8:23:49 EST, Compound Start Date: 03/19/18 Status: Ordered Zofran 4 mg oral tablet 1 tablet = 4 mg, By Mouth, Every 8 hours, PRN as needed for nausea/vomiting, # 10 tablet, 0 Refills, Maintenance, 01/17/18 18:22:30 EDT, Tablet Start Date: 01/17/18 Stop Date: 01/20/18 Status: Ordered ZyrTEC 10 mg oral tablet 1 tablet = 10 mg, By Mouth, Daily, # 30 tablet, 0 Refills, Maintenance, 11/20/16 17:07:58, Tablet Start Date: 11/20/16 Status: Ordered Social History Social History Type Response Smoking Status Never smoker entered on: 05/28/14 Sex Patient Care team information Care Team Personnel Name: Karin Clemente MD Position: Reference Physician Member Role: PCP Address: Address: [address] [place] [id number]- Name: Devon Jackson MD Position: [facility] Physician - Urology Med Service: Urology Member Role: Referring Physician Address: Address: [address] [facility] [address] [facility], [place] [address]- Care Team Related Persons Name: HENRI FUNG Address: [place] [address] Name: FAWN PAIGE Address: home [address] [place] [address] [address] [place], [place]
--- NOTE | 2023-05-05 11:31 | ECG_ITS ---
Test Reason : WEAKNESS Blood Pressure : / mmHG Vent. Rate : 073 BPM Atrial Rate : 300 BPM P-R Int : 000 ms QRS Dur : 082 ms QT Int : 402 ms P-R-T Axes : 031 039 022 degrees QTc Int : 442 ms Normal sinus rhythm Normal ECG When compared with ECG of 20-DEC-2022 15:18, No significant changes seen Referred By: Amina Jasmine Electronically Signed By:BENOIT MELVIN MD
--- NOTE | 2023-05-05 11:37 | ED.GENADULT ---
HPI - General Adult General Chief complaint: General Medical Stated complaint: weakness/ rash Time Seen by Provider: 05/05/23 10:10 History of Present Illness HPI narrative: Patient is a 38-year-old female presents today with having generalized malaise aches. Positive nausea. No vomiting. No abdominal pain. No coughing. No chest pain. No focal weakness. Patient is from home. Was started on Macrobid by her primary physician because of the aches possible urinary tract infection. Related Data Home Medications Medication Instructions Recorded Confirmed cholecalciferol (vitamin D3) 50 50 mcg PO DAILY 05/07/21 09/09/22 mcg (2,000 unit) tablet fluticasone propionate 230 2 puff PO BID 05/07/21 09/09/22 mcg-salmeterol 21 mcg/actuation HFA inhaler (Advair HFA) folic acid 800 mcg tablet 0.8 mg PO DAILY 05/07/21 09/09/22 multivitamin with folic acid 400 1 tab PO DAILY 05/07/21 09/09/22 mcg tablet (Daily-Meri (with folic acid)) sodium chloride 0.65 % nasal spray spray intranasal 05/07/21 09/09/22 aerosol (Saline Nasal) diphenhydramine HCl 25 mg capsule 25 mg PO TID PRN 05/17/21 09/09/22 (Banophen) biotin 5 mg capsule 5 mg PO DAILY 08/20/21 09/09/22 cetirizine 10 mg tablet 20 mg PO DAILY PRN allergies 08/20/21 09/09/22 fluticasone propionate 50 2 spray intranasal DAILY PRN 09/10/21 09/09/22 mcg/actuation nasal spray,suspension acetaminophen 325 mg tablet 325 mg PO Q4H PRN pain 03/29/22 09/09/22 Previous Rx's Medication Instructions Recorded albuterol sulfate 2.5 mg/3 mL 2.5 mg (3 mL) inhalation Q4-6H PRN 11/07/20 (0.083 %) solution for nebulization bronchospasm #15 mL albuterol sulfate 90 mcg/actuation 2 puff inhalation Q4-6H PRN 11/07/20 aerosol inhaler shortness of breath or wheezing #6.7 grams ibuprofen 100 mg/5 mL oral 600 mg (30 mL) PO Q6H PRN pain 03/13/21 suspension (Children's Ibuprofen) #473 mL meclizine 25 mg tablet 25 mg PO TID PRN dizziness #20 tabs 12/18/21 ondansetron 4 mg disintegrating 4 mg PO Q6-8H PRN nausea and 12/18/21 tablet vomiting #15 tabs docusate sodium 100 mg capsule 100 mg PO .DAILY WITH FOOD 30 days 05/06/22 (Colace) #30 caps riboflavin (vitamin B2) 100 mg 400 mg (4 x 100 mg) PO DAILY 90 09/08/22 tablet (Vitamin B-2) days #360 tabs famotidine 40 mg tablet 40 mg PO BID 90 days #180 tabs 11/14/22 Proctosol HC 2.5 % topical cream 1 appl NC BID PRN hemorrhoids 11/15/22 perineal applicator #28.35 grams (hydrocortisone) dicyclomine 20 mg tablet 20 mg PO QID 30 days #120 tabs 11/15/22 ondansetron HCl 4 mg tablet 4 mg PO Q8H PRN nausea and 12/20/22 vomiting 4 days #7 tabs Allergies Allergy/AdvReac Type Severity Reaction Status Date / Time peanut [PEANUT] Allergy Severe ANAPHYLAXIS Verified 11/15/22 12:58 clindamycin [CLINDAMYCIN] Allergy Mild UNKNOWN Verified 11/15/22 12:58 strawberry Allergy Mild Abdominal Verified 11/15/22 12:58 Pain amoxicillin [From Augmentin] Allergy Unknown Unknown Verified 11/15/22 12:58 cefaclor [From CECLOR] Allergy Unknown UNKNOWN Verified 11/15/22 12:58 clavulanic acid Allergy Unknown Unknown Verified 11/15/22 12:58 [From Augmentin] erythromycin base Allergy Unknown RASH Verified 11/15/22 12:58 [ERYTHROMYCIN BASE] lemon [Lemon] AdvReac Unknown VOMITING Verified 11/15/22 12:58 SEAFOOD Allergy Severe ANAPHYLAXIS Uncoded 09/09/22 08:56 berries Allergy Unknown Unknown Uncoded 09/09/22 08:56 Review of Systems Review of Systems: Positive generalized body ache positive nausea PMFSH Past Medical History Attestation statement: The following information was validated with the patient. Medical History Anxiety Asthma Surgical History Hx of tonsillectomy Family History Family History Father Heart disease Mother Migraine Heart disease Social History Social History Alcohol intake: never Patient Tobacco Use Status: Never used Tobacco Smoked in Last 30 Days: No Use of substances other than those prescribed or required for medical reasons: No Advance Directives: No Advance Directives Information Provided: Yes Physical Exam ED Vital Signs: Vital Signs - 24 hr 05/05/23 10:09 Temperature 97.7 F Pulse Rate 94 Respiratory Rate 16 Blood Pressure 155/75 H Pulse Oximetry 97 Oxygen Delivery Method Room Air BMI result Body Mass Index 49.9 Appearance: Alert. Oriented X3. No acute distress. Eyes: Pupils equal, round and reactive to light. ENT: Pharynx normal. Neck: Normal inspection. Neck supple. No lymph nodes noted. No crepitus CVS: Normal heart rate and rhythm. Pulses normal. Normal S1 and S2 Respiratory: No respiratory distress. Breath sounds normal. No Wheezing. No rales Abdomen: Soft and nontender. No rigidity. No distention. good BS x4 Skin: Skin warm and dry. Normal skin color. Normal skin turgor. Extremities: No lower extremity edema. Neurovascular intact to all extremities. No Lacerations. No Rash Neuro: Oriented X 3. No motor deficit. No sensory deficit. Moving all extermities. No slurred speech Medications Administered Discontinued Medications Generic Name Dose Route Start Last Admin Trade Name Freq PRN Reason Stop Dose Admin Sodium Chloride 1,000 mls @ 999 mls/hr 05/05/23 11:45 05/05/23 13:12 Ns IV 05/05/23 12:45 Infused .Q1H1M PHILIP Infusion Ondansetron HCl 4 mg 05/05/23 11:37 05/05/23 11:59 Ondansetron Hcl 4 Mg/2 Ml Vial IVPUSH 05/05/23 11:38 4 mg ONCE ONE Administration Medical Decision Making Medical Decision Making [facility] Narrative: Patient well-appearing no acute distress. COVID flu RSV were all negative. Urine showed no signs of infection. test negative. Patient's white count is normal. Hemoglobin is 13.3 there is no evidence for anemia. Patient's kidney functions are normal. Symptoms likely viral in origin. Will discharge patient home. In stable condition. Differential Diagnosis Differential Diagnoses: The differential diagnosis associated with the presentation includes Anemia, flu, RSV, COVID, viral illness, , UTI, anemia Admission/Observation Consideration of admission/observation: Escalation of care including admission/observation considered Lab Data MDM Lab Attestation statement: I reviewed the patient's lab results. 05/05/23 11:57 05/05/23 11:57 Labs: Lab Results 05/05/23 Range/Units 11:57 WBC 7.0 (4.8-10.8) X10*3/uL RBC 4.99 (4.20-5.50) X10*6/uL Hgb 13.3 (12.0-16.0) g/dl Hct 41.0 (37.0-47.0) % MCV 82.2 (80.0-98.0) fL MCH 26.7 L (27.0-33.0) pg MCHC 32.4 (31.0-35.0) g/dl RDW 14.4 (11.0-16.0) % Plt Count 211 (160-400) X10*3/uL MPV 10.1 (9.4-12.3) fL Immature Gran % (Auto) 0.3 (0.0-0.4) % Neut % (Auto) 69.7 (45-73) % Lymph % (Auto) 21.0 (20-40) % [place] % (Auto) 4.7 (2-11) % Eos % (Auto) 4.0 (0-4) % Baso % (Auto) 0.3 (0-2) % Lymph # (Auto) 1.5 (1.2-4.9) X10*3/uL [place] # (Auto) 0.3 (0.1-1.2) X10*3/uL Eos # (Auto) 0.3 (0.0-0.4) X10*3/uL Baso # (Auto) 0.0 (0.0-0.2) X10*3/uL Abs Immat Gran (auto) 0.02 (0.00-0.03) X10*3/uL Absolute Neuts (auto) 4.9 (2.0-8.3) x10*3/uL Absolute Nucleated RBC 0.000 (0.0-0.012) X10*3/uL Nucleated RBC % (auto) 0.0 (0.0-0.2) /100WBC Sodium 138 (135-145) mmol/L Potassium 3.8 (3.3-5.1) mmol/L Chloride 106 (96-108) mmol/L Carbon Dioxide 24 (22-29) mmol/L Anion Gap 12 (12-20) BUN 8 L (9-16) mg/dL Creatinine 0.82 (0.5-1.4) mg/dL Estim Creat Clear Calc 128.9 Estimated GFR > 60 Random Glucose 94 (60-115) mg/dL Calcium 9.2 (8.4-10.2) mg/dL Total Bilirubin 0.6 (0.0-1.0) mg/dL Direct Bilirubin 0.2 (0.0-0.5) mg/dL AST 17 (5-31) U/L ALT 14 (0-31) U/L Alkaline Phosphatase 89 (39-117) U/L Total Protein 7.1 (6.5-8.0) g/dL Albumin 3.9 (3.5-5.0) g/dL Lipase 9 (8-78) U/L Urine Color Yellow Urine Appearance Clear Urine pH 6.0 (5.0-9.0) Ur Specific [place] 1.010 (1.005-1.025) Urine Protein Negative (Neg-Trace) mg/dL Urine Glucose (UA) Negative (Negative) mg/dL Urine Ketones Negative (Negative) mg/dL Urine Blood Negative (Negative) Urine Nitrite Negative (Negative) Ur Leukocyte Esterase Negative (Negative) Urine RBC 0-2 (0-2) /HPF Urine WBC 0-5 (0-5) /HPF Ur Squamous Epith Cells 3-5 (0-2) /HPF Urine Bacteria None Seen (None Seen) Hyaline Casts 0-2 (0-2) /LPF Urine Test NEGATIVE (NEGATIVE) Influenza Type A (PCR) NEGATIVE (Negative) Influenza Type B (PCR) NEGATIVE (Negative) RSV RNA Qual (PCR) NEGATIVE (Negative) SARS-CoV-2 RNA (RT-PCR) NEGATIVE (Negative) Independent Interpretation I performed an independent interpretation of an: EKG (Sinus heart rate is 80 NC QRS QTC within normal limits is no acute ST segment elevation) External Record Review External record reviewed: Office record Previous GI record reviewed Chronic Conditions History of larger size history of migraine history of GERD Discharge Plan Discharge Clinical Impression: Viral illness Patient Disposition: Home, Self-Care Instructions: Viral Syndrome (ED) Prescriptions: No Action docusate sodium [Colace] 100 mg capsule 100 mg PO .DAILY WITH FOOD 30 Days Qty: 30 6RF riboflavin (vitamin B2) [Vitamin B-2] 100 mg tablet 400 mg PO DAILY 90 Days Qty: 360 3RF famotidine 40 mg tablet 40 mg PO BID 90 Days Qty: 180 1RF albuterol sulfate 2.5 mg /3 mL (0.083 %) solution for nebulization 2.5 mg inhalation Q4-6H PRN (Reason: bronchospasm) Qty: 15 0RF albuterol sulfate 90 mcg/actuation HFA aerosol inhaler 2 puff inhalation Q4-6H PRN (Reason: shortness of breath or wheezing) Qty: 6.7 0RF ibuprofen [Children's Ibuprofen] 100 mg/5 mL suspension 600 mg PO Q6H PRN (Reason: pain) Qty: 473 0RF meclizine 25 mg tablet 25 mg PO TID PRN (Reason: dizziness) Qty: 20 0RF ondansetron 4 mg tablet,disintegrating 4 mg PO Q6-8H PRN (Reason: nausea and vomiting) Qty: 15 0RF ondansetron HCl 4 mg tablet 4 mg PO Q8H PRN (Reason: nausea and vomiting) 4 Days Qty: 7 0RF diphenhydramine HCl [Banophen] 25 mg capsule 25 mg PO TID PRN biotin 5 mg capsule 5 mg PO DAILY cetirizine 10 mg tablet 20 mg PO DAILY PRN (Reason: allergies) fluticasone propionate 50 mcg/actuation spray,suspension 2 spray intranasal DAILY PRN acetaminophen 325 mg tablet 325 mg PO Q4H PRN (Reason: pain) hydrocortisone [Proctosol HC] 2.5 % cream with perineal applicator 1 appl NC BID PRN (Reason: hemorrhoids) Qty: 28.35 3RF dicyclomine 20 mg tablet 20 mg PO QID 30 Days Qty: 120 1RF cholecalciferol (vitamin D3) 50 mcg (2,000 unit) tablet 50 mcg PO DAILY Advair HFA 230-21 mcg/actuation HFA aerosol inhaler 2 puff PO BID Saline Nasal 0.65 % aerosol,spray intranasal folic acid 800 mcg tablet 0.8 mg PO DAILY multivitamin with folic acid [Daily-Meri (with folic acid)] 400 mcg tablet 1 tab PO DAILY Referrals: Karin Clemente MD [Primary Care Provider] - 05/08/23
[2023-05-05] MEDS: 0.9 % Sodium Chloride 1,000 ML 999 ML IV (11:58)
[2023-05-05] MEDS: ondansetron HCL 4 MG/2 ML VIAL IVPUSH (11:59)
[2023-05-05 12:05] LABS: MANUAL DIFF FLAG NO
[2023-05-05 12:07] LABS: Basophils Percent Auto 0.3 % (0-2); Eosinophils Absolute Auto 0.3 X10*3/uL (0.0-0.4); Hemoglobin 13.3 g/dl (12.0-16.0); Imm Gran Abs Auto 0.02 X10*3/uL (0.00-0.03); Imm Gran Pct Auto 0.3 % (0.0-0.4); Lymphocytes Absolute Auto 1.5 X10*3/uL (1.2-4.9); Mean Corpuscular HGB Conc 32.4 g/dl (31.0-35.0); Mean Corpuscular Hemoglobin 26.7 pg (27.0-33.0); Mean Corpuscular Volume 82.2 fL (80.0-98.0); Mean Platelet Volume 10.1 fL (9.4-12.3); Monocytes Absolute Auto 0.3 X10*3/uL (0.1-1.2); Monocytes Percent Auto 4.7 % (2-11); Neutrophils Absolute Auto 4.9 x10*3/uL (2.0-8.3); Neutrophils Percent Auto 69.7 % (45-73); Platelet Count 211 X10*3/uL (160-400); Red Blood Count 4.99 X10*6/uL (4.20-5.50); Red Cell Distribution Width 14.4 % (11.0-16.0)
[2023-05-05 12:21] LABS: Alanine Aminotransferase 14 U/L (0-31); Albumin Level 3.9 g/dL (3.5-5.0); Alkaline Phosphatase 89 U/L (39-117); Anion Gap 12 (12-20); Aspartate Amino Transferase 17 U/L (5-31); Bilirubin Direct 0.2 mg/dL (0.0-0.5); Bilirubin Total 0.6 mg/dL (0.0-1.0); Blood Urea Nitrogen 8 mg/dL (9-16); Calcium 9.2 mg/dL (8.4-10.2); Carbon Dioxide 24 mmol/L (22-29); Chloride 106 mmol/L (96-108); Creatinine Clr Calc Pharmacy 128.9; Estimated Glomerular Filt Rate > 60; Glucose Random 94 mg/dL (60-115); Lipase 9 U/L (8-78); Potassium 3.8 mmol/L (3.3-5.1); Sodium 138 mmol/L (135-145); Total Protein 7.1 g/dL (6.5-8.0)
[2023-05-05 12:22] LABS: Appearance Urine Clear; Color Urine Yellow; Glucose Urine UA Negative (Negative); Leukocyte Esterase Urine Negative (Negative); Nitrite Urine Negative (Negative); Urine Blood Negative (Negative); Urine Ketones Negative (Negative); Urine Protein Negative (Neg-Trace)
[2023-05-05 12:25] LABS: UPreg QC Valid YES; Urine Pregnancy NEGATIVE (NEGATIVE)
[2023-05-05 12:27] LABS: Bacteria Urine None Seen (None Seen); Hyaline Casts Urine 0-2 /LPF (0-2); RBC Urine 0-2 /HPF (0-2); WBC Urine 0-5 /HPF (0-5)
[2023-05-05 12:46] LABS: Influenza A PCR NEGATIVE (Negative); Influenza B PCR NEGATIVE (Negative); Resp Syncy Virus RNA Qual PCR NEGATIVE (Negative); SARS COV2 PCR INHOUSE NEGATIVE (Negative)
== END 2023-05-05 14:35 | disposition home or self-care (01) ==
PROVIDERS: Emergency Provider Emergency Medicine Emergency Medical Services; PCP Internal Medicine
DX: B34.9 Viral infection, unspecified (principal); R53.1 Weakness; R11.0 Nausea; Z79.899 Other long term (current) drug therapy; Z20.822 Contact with and (suspected) exposure to COVID-19; Z20.828 Contact with and (suspected) exposure to other viral communicable diseases
CPT/HCPCS: 0241U; 80048; 80076; 81001; 81025; 83690; 85025; 93005; 96361; 96374; 99284; J2405

== ENCOUNTER → 2023-05-05 11:31 | Outpatient (BNV) | payer OTHER, SELFPAY | PROVIDERS: Emergency Provider Emergency Medicine Emergency Medical Services; PCP Internal Medicine; Visit Provider Internal Medicine Cardiovascular Disease | DX: R53.1 Weakness (principal) | CPT/HCPCS: 93010 ==

== ENCOUNTER 2023-05-15 09:31 | Emergency (ER) | payer OTHER, SELFPAY ==
--- NOTE | ~2023-05-15 | XR_ITS ---
EXAMINATION: XR CHEST CLINICAL INFORMATION: Chest pain. COMPARISON: 11/20/2021. TECHNIQUE: PA view of the chest was obtained. FINDINGS: No significant abnormality is noted involving the heart, lungs, mediastinum, bony thorax or soft tissues. XR/XR chest 1V IMPRESSION: Normal chest PA.
--- NOTE | 2023-05-15 09:32 | ECG_ITS ---
Test Reason : CHEST TIGHTNESS Blood Pressure : / mmHG Vent. Rate : 100 BPM Atrial Rate : 100 BPM P-R Int : 144 ms QRS Dur : 084 ms QT Int : 336 ms P-R-T Axes : 052 013 020 degrees QTc Int : 433 ms Normal sinus rhythm Normal ECG When compared with ECG of 05-MAY-2023 13:07, No significant change was found Referred By: Generic ED Physician Electronically Signed By:Jose Ladd
[2023-05-15 09:55] VITALS: BP 136/89; PULSE 108; RESP 18; TEMP 36.3; O2SAT 94; BMI 49.5
[2023-05-15 10:38] LABS: COVID-19 Test Negative (Negative); IDNOW Serial# 08D9AD1C; IDNOW Serial# 152EDE1D; Influenza A Positive (Negative); Influenza B2 Negative (Negative)
--- NOTE | 2023-05-15 12:29 | ED.URI ---
HPI - URI/Sore Throat General Chief Complaint: Upper Respiratory Symptoms Stated Complaint: cold like symptoms/ chest tightness Time Seen by Provider: 05/15/23 10:37 Source: patient and RN notes reviewed Mode of arrival: ambulatory Limitations: no limitations History of Present Illness HPI Narrative: This is a 38-year-old female, with a history of asthma, presenting to the emergency department with complaints of productive cough, sore throat, chest tightness, and sore throat for the last 2 weeks. Patient states that 2 weeks ago she developed a cough, which is only progressively getting worse. She states that she has been using her inhaler with minimal relief. She is followed up with her primary care physician who prescribed her a 5 day course of prednisone, which she completed however states that on her symptoms are not improving and her primary care sent over another prescription for prednisone. She states that her family is sick at home with flu. She reports subjective fevers and chills. Denies abdominal pain, nausea, vomiting or diarrhea. No other complaints or concerns at this time. MD elicited complaint: fever (Subjective), cough, sore throat, rhinorrhea and nasal congestion Onset (ago): week(s) Consistency: constant Description of mucous: green Able to tolerate fluids by mouth: Yes Exacerbating factors: nothing Relieving factors: nothing Context: sick contacts Associated symptoms: fever (Subjective) and chills Treatments prior to arrival: none Related Data Home Medications Medication Instructions Recorded Confirmed cholecalciferol (vitamin D3) 50 50 mcg PO DAILY 05/07/21 09/09/22 mcg (2,000 unit) tablet fluticasone propionate 230 2 puff PO BID 05/07/21 09/09/22 mcg-salmeterol 21 mcg/actuation HFA inhaler (Advair HFA) folic acid 800 mcg tablet 0.8 mg PO DAILY 05/07/21 09/09/22 multivitamin with folic acid 400 1 tab PO DAILY 05/07/21 09/09/22 mcg tablet (Daily-Meri (with folic acid)) sodium chloride 0.65 % nasal spray spray intranasal 05/07/21 09/09/22 aerosol (Saline Nasal) diphenhydramine HCl 25 mg capsule 25 mg PO TID PRN 05/17/21 09/09/22 (Banophen) biotin 5 mg capsule 5 mg PO DAILY 08/20/21 09/09/22 cetirizine 10 mg tablet 20 mg PO DAILY PRN allergies 08/20/21 09/09/22 fluticasone propionate 50 2 spray intranasal DAILY PRN 09/10/21 09/09/22 mcg/actuation nasal spray,suspension acetaminophen 325 mg tablet 325 mg PO Q4H PRN pain 03/29/22 09/09/22 Previous Rx's Medication Instructions Recorded albuterol sulfate 2.5 mg/3 mL 2.5 mg (3 mL) inhalation Q4-6H PRN 11/07/20 (0.083 %) solution for nebulization bronchospasm #15 mL albuterol sulfate 90 mcg/actuation 2 puff inhalation Q4-6H PRN 11/07/20 aerosol inhaler shortness of breath or wheezing #6.7 grams ibuprofen 100 mg/5 mL oral 600 mg (30 mL) PO Q6H PRN pain 03/13/21 suspension (Children's Ibuprofen) #473 mL meclizine 25 mg tablet 25 mg PO TID PRN dizziness #20 tabs 12/18/21 ondansetron 4 mg disintegrating 4 mg PO Q6-8H PRN nausea and 12/18/21 tablet vomiting #15 tabs docusate sodium 100 mg capsule 100 mg PO .DAILY WITH FOOD 30 days 05/06/22 (Colace) #30 caps riboflavin (vitamin B2) 100 mg 400 mg (4 x 100 mg) PO DAILY 90 09/08/22 tablet (Vitamin B-2) days #360 tabs famotidine 40 mg tablet 40 mg PO BID 90 days #180 tabs 11/14/22 Proctosol HC 2.5 % topical cream 1 appl VT BID PRN hemorrhoids 11/15/22 perineal applicator #28.35 grams (hydrocortisone) dicyclomine 20 mg tablet 20 mg PO QID 30 days #120 tabs 11/15/22 ondansetron HCl 4 mg tablet 4 mg PO Q8H PRN nausea and 12/20/22 vomiting 4 days #7 tabs benzonatate 200 mg capsule 200 mg PO TID 7 days #21 caps 05/15/23 doxycycline hyclate 100 mg tablet 100 mg PO BID 5 days #9 tabs 05/15/23 Allergies Allergy/AdvReac Type Severity Reaction Status Date / Time peanut [PEANUT] Allergy Severe ANAPHYLAXIS Verified 05/15/23 10:00 clindamycin [CLINDAMYCIN] Allergy Mild UNKNOWN Verified 05/15/23 10:00 strawberry Allergy Mild Abdominal Verified 05/15/23 10:00 Pain amoxicillin [From Augmentin] Allergy Unknown Unknown Verified 05/15/23 10:00 cefaclor [From CECLOR] Allergy Unknown UNKNOWN Verified 05/15/23 10:00 clavulanic acid Allergy Unknown Unknown Verified 05/15/23 10:00 [From Augmentin] erythromycin base Allergy Unknown RASH Verified 05/15/23 10:00 [ERYTHROMYCIN BASE] lemon [Lemon] AdvReac Unknown VOMITING Verified 05/15/23 10:00 SEAFOOD Allergy Severe ANAPHYLAXIS Uncoded 05/15/23 10:00 berries Allergy Unknown Unknown Uncoded 05/15/23 10:00 Review of Systems Review of Systems: Yes all other systems are reviewed and are negative Constitutional: Constitutional: Reports as per [facility] Past Medical History Medical History Anxiety Asthma Surgical History Hx of tonsillectomy Family History Family History Father Heart disease Mother Migraine Heart disease Social History Social History Alcohol intake: never Patient Tobacco Use Status: Never used Tobacco Advance Directives: No Physical Exam Vital Signs: Vital Signs: Last Vital Signs Temp 97.4 F 05/15/23 09:55 Pulse 80 05/15/23 12:52 Resp 24 H 05/15/23 12:52 BP 136/89 05/15/23 09:55 Pulse Ox 94 05/15/23 09:55 O2 Del Method Room Air 05/15/23 09:55 BMI result Body Mass Index 49.5 Const: General: cooperative, comfortable and no acute distress Orientation/consciousness: patient oriented x3 Limitations: no limitations HEENT: Head: Yes normal to inspection, Yes normocephalic and Yes atraumatic Ears: hearing grossly normal bilaterally General nose exam: Normal external nose present Face and sinus: Yes normal facial exam Mouth: Normal oral and palatal mucosa present, oropharynx normal and moist mucous membranes Throat: Yes posterior oropharynx normal Eyes: General: appearance normal, both eyes and all related structures Eyelids: Yes eyelids normal Conjunctivae: conjunctivae normal Sclerae: sclerae normal Pupils: Equal, round and reactive pupils present EOM: EOMs intact bilaterally Neck: Neck: Yes normal visual inspection, Yes full ROM and Yes no lymphadenopathy Lymphatic: no lymphadenopathy noted Chest: Chest palpation & inspection: normal inspection of the chest Resp: Other: Lungs with expiratory wheeze in the left lower base, otherwise clear. Effort & Inspection: normal respiratory effort and able to speak in complete sentences Cardio: Rate: regular rate Rhythm: regular rhythm Heart sounds: S1 normal heart sound present and S2 normal heart sound present GI: Inspection: Yes normal to inspection Skin: General skin exam: no rashes or lesions noted Trauma: no lacerations or abrasions Wounds: no wounds Neuro: General: patient oriented x3 and moves all extremities Cranial nerves: Yes Equal, round and reactive pupils present Extrem: General: Yes normal to inspection Right upper extremity: normal to inspection Left upper extremity: normal to inspection Right lower extremity: normal to inspection Left lower extremity: normal to inspection Course Reevaluation(s) Reevaluation #1: Patient feeling much better after receiving updraft. Given patient has been sick for the last 2 weeks, treating with doxycycline. Given return precautions. She also is on prednisone taper through her primary care physician, I advised her to continue this. Also discharged with Tessalon. Given return precautions. Patient understands and agrees with plan. Patient stable for discharge. Time: 13:22 Medications Administered Discontinued Medications Generic Name Dose Route Start Last Admin Trade Name Freq PRN Reason Stop Dose Admin Benzonatate 200 mg 05/15/23 12:29 05/15/23 13:04 Benzonatate 100 Mg Capsule PO 05/15/23 12:30 200 mg ONCE ONE Administration Albuterol Sulfate 2.5 mg/ 0 mg 05/15/23 12:47 05/15/23 12:52 Albuterol/Ipratropium 3 ml INHALE 05/15/23 12:48 1 dose ONCE ONE Administration Doxycycline Monohydrate 100 mg 05/15/23 13:20 05/15/23 13:32 Doxycycline Monohydrate 100 Mg Capsule PO 05/15/23 13:21 100 mg ONCE ONE Administration Medical Decision Making Medical Decision Making MDM Narrative: This is a 38-year-old female presenting to the emergency department for evaluation of cough, shortness breath, sore throat, and chest tightness for the last 2 weeks. She has been treated with 2 courses of prednisone. On arrival, vital signs within normal limits. Differential diagnoses include bronchitis, URI, pneumonia, influenza, asthma exacerbation. Lungs with expiratory wheeze in the left lower base, otherwise clear. Frequent loose cough heard during examination. Patient under no acute distress, 94% on room air, pulse 108, she is afebrile. Plan: Chest x-ray, viral swabs, EKG, ED bronch protocol Differential Diagnosis Differential Diagnoses: The differential diagnosis associated with the presentation includes See above Lab Data MDM Lab Attestation statement: I reviewed the patient's lab results. Influenza a Labs: Lab Results 05/15/23 Range/Units 10:07 COVID-19 (JENNIFER) Negative (Negative) COVID-19 Clin Com See Note Influenza Type A (MARK ANTHONY) Positive A (Negative) Influenza Type B (MARK ANTHONY) Negative (Negative) Influenza A & B Note See Note Independent Interpretation I performed an independent interpretation of an: EKG and Plain X-Ray Interpretation: EKG normal sinus rhythm at a ventricular rate of 100 beats per minute, no ST elevation or depression, VT interval 144, QTC 433 Chest x-ray with no acute consolidations seen, I agree with the radiology report Radiology Impression Discussion of test interpretation with radiology: I have reviewed the radiologist's reading. Radiologist Impression: EXAMINATION: XR CHEST CLINICAL INFORMATION: Chest pain. COMPARISON: 11/20/2021. TECHNIQUE: PA view of the chest was obtained. FINDINGS: No significant abnormality is noted involving the heart, lungs, mediastinum, bony thorax or soft tissues. XR/XR chest 1V IMPRESSION: Normal chest PA. Dictated By: Orlando Maldonado Discharge Plan Discharge Clinical Impression: Influenza A, URI (upper respiratory infection) Patient Disposition: Home, Self-Care Instructions: Upper Respiratory Infection (ED) Additional Instructions: Your seen in the emergency department due to a upper respiratory infection. You did test positive for the flu. Please continue your prednisone taper that was given to you by your primary care physician. Because you have been sick for the last 2 weeks, I am also treating with an antibiotic. Please take the full course even if you are feeling better. Drink plenty of fluids and get plenty of rest. If any new or worsening symptoms occur including but not limited to chest pain, shortness of breath, please return for re-evaluation. Prescriptions: New doxycycline hyclate 100 mg tablet 100 mg PO BID 5 Days Qty: 9 0RF benzonatate 200 mg capsule 200 mg PO TID 7 Days Qty: 21 0RF No Action docusate sodium [Colace] 100 mg capsule 100 mg PO .DAILY WITH FOOD 30 Days Qty: 30 6RF riboflavin (vitamin B2) [Vitamin B-2] 100 mg tablet 400 mg PO DAILY 90 Days Qty: 360 3RF famotidine 40 mg tablet 40 mg PO BID 90 Days Qty: 180 1RF albuterol sulfate 2.5 mg /3 mL (0.083 %) solution for nebulization 2.5 mg inhalation Q4-6H PRN (Reason: bronchospasm) Qty: 15 0RF albuterol sulfate 90 mcg/actuation HFA aerosol inhaler 2 puff inhalation Q4-6H PRN (Reason: shortness of breath or wheezing) Qty: 6.7 0RF ibuprofen [Children's Ibuprofen] 100 mg/5 mL suspension 600 mg PO Q6H PRN (Reason: pain) Qty: 473 0RF meclizine 25 mg tablet 25 mg PO TID PRN (Reason: dizziness) Qty: 20 0RF ondansetron 4 mg tablet,disintegrating 4 mg PO Q6-8H PRN (Reason: nausea and vomiting) Qty: 15 0RF ondansetron HCl 4 mg tablet 4 mg PO Q8H PRN (Reason: nausea and vomiting) 4 Days Qty: 7 0RF diphenhydramine HCl [Banophen] 25 mg capsule 25 mg PO TID PRN biotin 5 mg capsule 5 mg PO DAILY cetirizine 10 mg tablet 20 mg PO DAILY PRN (Reason: allergies) fluticasone propionate 50 mcg/actuation spray,suspension 2 spray intranasal DAILY PRN acetaminophen 325 mg tablet 325 mg PO Q4H PRN (Reason: pain) hydrocortisone [Proctosol HC] 2.5 % cream with perineal applicator 1 appl VT BID PRN (Reason: hemorrhoids) Qty: 28.35 3RF dicyclomine 20 mg tablet 20 mg PO QID 30 Days Qty: 120 1RF cholecalciferol (vitamin D3) 50 mcg (2,000 unit) tablet 50 mcg PO DAILY Advair HFA 230-21 mcg/actuation HFA aerosol inhaler 2 puff PO BID Saline Nasal 0.65 % aerosol,spray intranasal folic acid 800 mcg tablet 0.8 mg PO DAILY multivitamin with folic acid [Daily-Meri (with folic acid)] 400 mcg tablet 1 tab PO DAILY Stand Alone Forms: Work/School Release Interventions: ED Discharge Assessment Last Done: 05/15/23 14:03 Discharge Date/Time: 05/15/23 14:05
[2023-05-15 12:52] VITALS: PULSE 80; RESP 24; O2SAT 95
[2023-05-15] MEDS: Albuterol Sulfate 2.5 MG, Albuterol/Iprat 2.5/0.5MG 3 ML 3 ML INHALE (12:52)
[2023-05-15] MEDS: Benzonatate 100 MG CAPSULE 200 MG PO (13:04)
[2023-05-15] MEDS: Doxycycline Monohydrate 100 MG CAPSULE PO (13:32)
--- NOTE | 2023-05-15 14:04 | PC.NURSE ---
PT IS NOT AT BEDSIDE FOR D/C INSTRUCTIONS TO BE GIVEN. MLP (SAVAGE) AWARE.
== END 2023-05-15 14:05 | disposition home or self-care (01) ==
PROVIDERS: Emergency Provider Emergency Medicine; PCP Internal Medicine
DX: J10.1 Influenza due to other identified influenza virus with other respiratory manifestations (principal); R50.9 Fever, unspecified; R05.9 Cough, unspecified; R07.89 Other chest pain; J45.909 Unspecified asthma, uncomplicated; Z11.52 Encounter for screening for COVID-19
CPT/HCPCS: 71045; 87502; 87635; 93005; 94640; 99284

== ENCOUNTER → 2023-05-15 09:32 | Outpatient (BNV) | payer OTHER, SELFPAY | PROVIDERS: Emergency Provider Emergency Medicine; PCP Internal Medicine; Visit Provider Internal Medicine Cardiovascular Disease | DX: R07.89 Other chest pain (principal) | CPT/HCPCS: 93010 ==

== ENCOUNTER 2023-07-04 11:42 | Outpatient (AMB) | payer OTHER, SELFPAY ==
--- NOTE | 2023-07-04 11:43 | A.OFFVIS_ITS ---
Intake Vital Signs 07/04/23 11:44 Height 5 ft 5 in Weight 302 lb BMI 50.2 BP 126/78 Blood Pressure Location Rt brachial Position Sitting Respiration 16 Pulse 78 Pulse Source Pulse Oximeter Pulse Oximetry (%) 98 Oxygen Delivery Method Room Air Intake Visit Reasons: follow up-Conf Intake Note: Pt presents to the office for a 10 month follow up for migraine with aura. Crab Picker Required: No Allergies peanut [PEANUT] Allergy (Severe, Verified 07/04/23 11:44) ANAPHYLAXIS clindamycin [CLINDAMYCIN] Allergy (Mild, Verified 07/04/23 11:44) UNKNOWN strawberry Allergy (Mild, Verified 07/04/23 11:44) Abdominal Pain amoxicillin [From Augmentin] Allergy (Unknown, Verified 07/04/23 11:44) Unknown cefaclor [From CECLOR] Allergy (Unknown, Verified 07/04/23 11:44) UNKNOWN clavulanic acid [From Augmentin] Allergy (Unknown, Verified 07/04/23 11:44) Unknown erythromycin base [ERYTHROMYCIN BASE] Allergy (Unknown, Verified 07/04/23 11:44) RASH lemon [Lemon] Adverse Reaction (Unknown, Verified 07/04/23 11:44) VOMITING SEAFOOD Allergy (Severe, Uncoded 07/04/23 11:44) ANAPHYLAXIS berries Allergy (Unknown, Uncoded 07/04/23 11:44) Unknown Medication List - Last Reconciled 07/04/23 by ALFONSO Peterson acetaminophen 325 mg PO Q4H PRN albuterol sulfate 2.5 mg (3 mL) inhalation Q4-6H PRN albuterol sulfate 90 mcg/actuation 2 puffs inhalation Q4-6H PRN benzonatate 200 mg PO TID 7 days biotin 5 mg PO DAILY cetirizine 20 mg PO DAILY PRN cholecalciferol (vitamin D3) 50 mcg PO DAILY dicyclomine 20 mg PO QID 30 days diphenhydramine HCl (Banophen) 25 mg PO TID PRN docusate sodium (Colace) 100 mg PO .DAILY WITH FOOD 30 days doxycycline hyclate 100 mg PO BID 5 days famotidine 40 mg PO BID 90 days fluticasone propion-salmeterol 230-21 mcg/actuation (Advair HFA) 2 puffs PO BID fluticasone propionate 50 mcg/actuation 2 sprays intranasal DAILY PRN folic acid 0.8 mg PO DAILY ibuprofen (Children's Ibuprofen) 600 mg (30 mL) PO Q6H PRN meclizine 25 mg PO TID PRN multivitamin with folic acid 400 mcg (Daily-Meri (with folic acid)) 1 tab PO DAILY ondansetron 4 mg PO Q6-8H PRN ondansetron HCl 4 mg PO Q8H PRN 4 days Proctosol HC 2.5% (hydrocortisone) 1 appl IN BID PRN NS riboflavin (vitamin B2) (Vitamin B-2) 400 mg (4 x 100 mg) PO DAILY 90 days sodium chloride 0.65% (Saline Nasal) sprays intranasal HPI HPI Comments History of Present Illness0 Details 38-yr-old female presents for f/u visit. Pt denies any significant interval medical changes. Pt did have a new headache- this was occipital region a/w nausea, neck tightness/soreness, dizziness. She had full cervical ROM. This headache subsided. She endorses bruxism, does not have a mouthguard- is missing mx teeth. She is having just occasional migraine w/ visual aura- lightening bolt/squiggling lines w/ visual loss x's 30-45 minutes f/b severe migraine- just 2-3 x's in the last year. Once since Apr 2023. Her typical mild-mod migraine starts as brief dizziness, mod-severe pressure headache in usually top/crown or less often front of the head. A/w vision feeling crooked, mild photophobia, mild phonophobia. Triggers- just before/after menses, caffeine. Drinking more water helps reduce her migraine attacks. However, lately she is drinking more soda, and is trying to switch herself back to drinking water. She endorses she is not sleeping much. [facility] Medical History Anxiety Asthma Surgical History Hx of tonsillectomy Family History Father Heart disease Mother Migraine Heart disease Social History Alcohol intake: never Patient Tobacco Use Status: Never used Tobacco Physical Exam Vital Signs: Last Vital Signs Pulse 78 07/04/23 11:44 Resp 16 07/04/23 11:44 BP 126/78 07/04/23 11:44 Pulse Ox 98 07/04/23 11:44 Oxygen Delivery Method Room Air 07/04/23 11:44 BMI result Body Mass Index 50.2 Const General: cooperative and no acute distress Orientation/consciousness: patient oriented x3 Resp Effort & Inspection: normal respiratory effort and able to speak in complete sentences Neuro Other: Bilateral TMJ crepitus. General: patient oriented x3 Cranial nerves: Yes CN's II-XII intact bilaterally Cognition (Neuro): normal cognition Psych Appearance: grossly normal Mental Status: mental status grossly normal Speech and movement: Normal speech and movement present Affect: normal affect Attitude: cooperative Assessment & Plan Assessment & Plan (1) Migraine with aura: Code(s): G43.109 - Migraine with aura, not intractable, without status migrainosus (2) Bruxism: Code(s): F45.8 - Other somatoform disorders Plan Head CT- as ordered by PCP. Brain MRI previously not completed d/t pt is claustrophobic. Continue Riboflavin. Continue Children's liquid Ibuprofen- pt requests grape flavor only d/t strawberry/maurice allergy. Will request allergy consult to clarify if there are allergy concenrs w/ flavored liquid meds. Continue Tylenol prn. Continue prn Meclizine. Consider trying a simple OTC mouth guard. Previous trials: Mag- caused constipation. f/u in 6 months or sooner prn. Orders: Referrals Allergy & Immunology Referral Z91.018 - Allergy to other foods Medications: Changed From ibuprofen (Children's Ibuprofen) 600 mg (30 mL) PO Q6H PRN 473 mL 0RF pain To ibuprofen (Children's Ibuprofen) Grape flavor (d/t maurice allergy) 600 mg (30 mL) PO Q6H 30 days PRN 473 mL 3RF pain Coding Level of Care Code Est Pt Level 4 (26140) Diagnoses Migraine with aura G43.109 Bruxism F45.8
[2023-07-04 11:44] VITALS: BP 126/78; PULSE 78; RESP 16; O2SAT 98; BMI 50.2
== END 2023-07-04 12:44 | disposition home or self-care (01) ==
PROVIDERS: PCP Internal Medicine; Visit Provider Nurse Practitioner Family
DX: G43.109 Migraine with aura, not intractable, without status migrainosus (principal); F45.8 Other somatoform disorders
CPT/HCPCS: 99214

== ENCOUNTER → 2023-07-04 11:42 | Outpatient (BNVA) | payer OTHER, SELFPAY | PROVIDERS: PCP Internal Medicine; Visit Provider Nurse Practitioner Family | DX: G43.109 Migraine with aura, not intractable, without status migrainosus (principal); F45.8 Other somatoform disorders | CPT/HCPCS: 99212 ==

== ENCOUNTER 2023-08-29 15:06 | Outpatient (REF) | payer OTHER, SELFPAY ==
--- NOTE | ~2023-08-29 | XR_ITS ---
EXAMINATION: XR ABDOMEN WITH DECUBITUS VIEWS CLINICAL INDICATION: Calculus of gallbladder without cholecystitis without obstruction COMPARISON: None available. TECHNIQUE: AP supine and upright views of the abdomen FINDINGS: There is no free air under the diaphragm. The bowel gas pattern is normal with no evidence of ileus or obstruction. There is no significant stool burden. A few phleboliths are seen within the bladder. Degenerative changes are noted within the lower lumbar spine. XR/XR abdomen w decubitus IMPRESSION: No obstruction. No significant stool burden.
== END 2023-08-29 15:07 | disposition home or self-care (01) ==
LOC: HO.XRAY 15:06
PROVIDERS: PCP Internal Medicine; Visit Provider Nurse Practitioner
DX: K80.20 Calculus of gallbladder without cholecystitis without obstruction (principal); K21.9 Gastro-esophageal reflux disease without esophagitis; K25.9 Gastric ulcer, unspecified as acute or chronic, without hemorrhage or perforation; K58.1 Irritable bowel syndrome with constipation; R10.11 Right upper quadrant pain; E66.01 Morbid (severe) obesity due to excess calories
CPT/HCPCS: 74021; 99212

== ENCOUNTER 2023-08-29 15:06 | Outpatient (AMB) | payer OTHER, SELFPAY ==
[2023-08-29 15:08] VITALS: BP 111/54; PULSE 107; BMI 50.3
--- NOTE | 2023-08-29 15:08 | MHC.OFFVIS ---
Vital Signs 08/29/23 15:08 Height 5 ft 5 in Weight 302 lb 7.587 oz BMI 50.3 BP 111/54 L Blood Pressure Location Rt brachial Position Sitting Pulse 107 H Intake Visit Reasons: Follow up 6 months Intake Note: Bea returns in 6 months follow up of GERD. CC: Patient c/o RUQ abdominal pain for about 2-3 days, constipation, and very small stools. She also c/o heartburn and epigastric pain when she forgets taking her Famotidine at night, nausea, and throwing up yesterday. 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: No Accompanied by: Son Allergies peanut [PEANUT] Allergy (Severe, Verified 08/29/23 15:15) ANAPHYLAXIS clindamycin [CLINDAMYCIN] Allergy (Mild, Verified 08/29/23 15:15) UNKNOWN strawberry Allergy (Mild, Verified 08/29/23 15:15) Abdominal Pain amoxicillin [From Augmentin] Allergy (Unknown, Verified 08/29/23 15:15) Unknown cefaclor [From CECLOR] Allergy (Unknown, Verified 08/29/23 15:15) UNKNOWN clavulanic acid [From Augmentin] Allergy (Unknown, Verified 08/29/23 15:15) Unknown erythromycin base [ERYTHROMYCIN BASE] Allergy (Unknown, Verified 08/29/23 15:15) RASH lemon [Lemon] Adverse Reaction (Unknown, Verified 08/29/23 15:15) VOMITING SEAFOOD Allergy (Severe, Uncoded 07/04/23 11:44) ANAPHYLAXIS berries Allergy (Unknown, Uncoded 07/04/23 11:44) Unknown HPI HPI Follow up 6 months: Details: Assessment & Plan (1) GERD (gastroesophageal reflux disease): Code(s): K21.9 - Gastro-esophageal reflux disease without esophagitis Plan: She has been having worse cramping during her periods, which she feels is from her bowels, she has IBS sx with tenesmus and only moving small hard stools several times a day. But this only happens twice a month at the beginning and end of her menses. She did not try the proctosol yet for the bleeding before her periods. I will resend this. I suggest a trial of bentyl during her periods. Her GERD is well controlled on famotidine. Her son is having unexplained abdominal pain, but is on singulair (we discuss s/e with this med). Long not saying this is because I let her know that he might want to try stopping the med and see if his pain improves since they have not found any other explanation. Of course that should coordinate this with the prescribing provider. She is trying to get for another child. She is seeing a garage door service technician for wt loss. ROV 6 mos. (2) Constipation: Code(s): K59.00 - Constipation, unspecified Medications: New dicyclomine 20 mg PO QID 120 tabs 1RF 30 days Refilled Proctosol HC 2.5% (hydrocortisone) 1 appl AR BID PRN 28.35 grams 3RF hemorrhoids NS K64.9 - Unspecified hemorrhoids Review of the ER notes 12/20/2022 Medical Decision Making MDM Narrative: 37-year-old female with history and clinical presentation, DDX: Gastroenteritis, viral illness, food poisoning, UTI I reviewed all investigations and hematologic indices are negative for leukocytosis or left shift, no anemia or thrombocytopenia. Chemistry in to sees are grossly within normal limits without DEMI and no evidence of electrolyte or liver enzyme abnormalities. I sensitivity troponin is undetectable, lipase is not elevated and there is no associated epigastric discomfort. Urinalysis is negative for UTI or hematuria, urine test is negative. Viral testing for COVID-19 and influenza are negative. EKG is normal sinus rhythm without STEMI. My interpretation that patient is suffering from possible viral gastroenteritis or tail end of food poisoning, however she is tolerating oral intake and will be discharged with antinausea medication instructed follow-up with her primary care doctor. Discharge Clinical Impression: Gastroenteritis, Food poisoning Patient Disposition: Home, Self-Care Instructions: Gastroenteritis (ED), Nutrition Tips for Relief of Diarrhea (ED) Additional Instructions: 1. Resume your home medications. 2. Follow-up with your primary care provider. Your workup today is benign, however your primary care provider may want to do additional testing. Return to the ER for any acute worsening of your symptoms. Prescriptions: New ondansetron HCl 4 mg tablet 4 mg PO Q8H PRN (Reason: nausea and vomiting) 4 Days Qty: 7 0RF TODAY'S VISIT Pt has been lost to follow up since 11/2022. She was sick twice for respiratory problems and this got us out of step. She is still having very bad menses, her last was extremely painful. She has not yet tried the bentyl. Now she thinks she is constipated. She is passing only very little pieces of feces and a little nagging pain in the RUQ. She also feels bloating. She would like an xray to evaluate stool burden and she would like a repeat US (we discussed HIDA but she wants time r/t anxiety). She needs a prior auth for her Culturelle - we will try. ROV 6 weeks to eval CIC/RUQ pain. [facility] Medical History Anxiety Asthma Surgical History Hx of tonsillectomy Family History Father Heart disease Mother Migraine Heart disease Social History Alcohol intake: never Patient Tobacco Use Status: Never used Tobacco Review of Systems Const Denies fatigue, Denies fever(s), Denies night sweats, Denies poor appetite and Denies weight loss ENT Reports Normal hearing present, Denies dental pain, Denies dysphagia, Denies hearing loss, Denies mouth pain, Denies odynophagia, Denies throat swelling, Denies tongue swelling and Reports other (Dentition adequate) Card Reports no additional complaints Resp Reports no additional complaints GI Details: Reports abdominal pain, Denies melena, Reports bloating, Denies hematochezia, Reports constipation, Denies GI cramping, Denies dysphagia, Denies excessive flatus, Denies early satiety, Reports heartburn, Reports diarrhea, Denies nausea, Denies odynophagia, Denies vomiting and Denies hematemesis Skin/Breast Denies pruritus, Denies lesions, Denies rash and Denies jaundice Neuro Reports Normal hearing present and Denies Abnormal speech present Psych Reports anxiety Endo Denies fatigue Aller/Immun Denies throat swelling and Denies tongue swelling Physical Exam Vital Signs: Last Vital Signs Pulse 107 H 08/29/23 15:08 BP 111/54 L 08/29/23 15:08 BMI result Body Mass Index 50.3 Const General: cooperative, no acute distress, well developed and well groomed Nutritional Appearance: well nourished and obese morbidly obese Orientation/consciousness: oriented to person, oriented to place and oriented to time Limitations: No language barrier HEENT Head: Yes normocephalic and Yes atraumatic Eyes General: appearance normal, both eyes and all related structures Pupils: Equal, round and reactive pupils present Neck Neck: Yes normal visual inspection and Yes no lymphadenopathy Thyroid: Thyroid normal Resp Effort & Inspection: normal respiratory effort and able to speak in complete sentences Auscultation: clear to auscultation bilaterally Cardio Rate: regular rate Rhythm: regular rhythm Heart sounds: Normal, physiologic split S2 sound present Peripheral pulses: radial pulses present and posterior tibial pulses present GI Inspection: No distended, Yes Abdominal panniculus present and Yes obesity Palpation (GI): Soft to palpation, nontender, no guarding, not rigid and No hepatosplenomegaly present Percussion: Yes normal to percussion Auscultation: normal bowel sounds Rectal Exam - Female: deferred Skin General skin exam: no rashes or lesions noted, turgor normal, skin not dry, no jaundice, No spider nevi and no striae Rashes: no rashes Nails: normal Neuro General: oriented to person, oriented to place and oriented to time Cranial nerves: Yes Equal, round and reactive pupils present and Yes Normal hearing present Speech: No Abnormal speech present Extrem General: Yes normal to inspection, No clubbing, No cyanosis and No edema Psych Appearance: grossly normal and well kempt Mental Status: mental status grossly normal Speech and movement: Normal speech and movement present Affect: normal affect Attitude: cooperative Thought process: Normal thought process present and not confabulating Thought content: Normal thought content present Insight: Limited insight present (Psych) Judgement: Limited judgement present (Psych) Assessment & Plan Assessment & Plan (1) GERD (gastroesophageal reflux disease): Code(s): K21.9 - Gastro-esophageal reflux disease without esophagitis Category: Medical (2) Constipation: Code(s): K59.00 - Constipation, unspecified Category: Medical (3) Gallstones: Code(s): K80.20 - Calculus of gallbladder without cholecystitis without obstruction Category: Medical (4) Gastric ulcer: Code(s): K25.9 - Gastric ulcer, unspecified as acute or chronic, without hemorrhage or perforation Category: Medical (5) Morbid obesity: Code(s): E66.01 - Morbid (severe) obesity due to excess calories Category: Medical (6) IBS (irritable bowel syndrome): Code(s): K58.9 - Irritable bowel syndrome without diarrhea Category: Medical Plan Pt has been lost to follow up since 11/2022. She was sick twice for respiratory problems and this got us out of step. She is still having very bad menses, her last was extremely painful. She has not yet tried the bentyl. Now she thinks she is constipated. She is passing only very little pieces of feces and a little nagging pain in the RUQ. She also feels bloating. She would like an xray to evaluate stool burden and she would like a repeat US (we discussed HIDA but she wants time r/t anxiety). She needs a prior auth for her Culturelle - we will try. ROV 6 weeks to eval CIC/RUQ pain Orders: Orders XR abdomen w decubitus Today K80.20 - Calculus of gallbladder without cholecystitis without obstruction, R10.9 - Unspecified abdominal pain US abdomen complete Today K80.20 - Calculus of gallbladder without cholecystitis without obstruction, R10.9 - Unspecified abdominal pain Medications: New Lactobacillus rhamnosus GG (Culturelle) 1 cap PO DAILY 30 caps 6RF K58.9 - Irritable bowel syndrome without diarrhea Refilled famotidine 40 mg PO BID 180 tabs 1RF 90 days K21.9 - Gastro-esophageal reflux disease without esophagitis Proctosol HC 2.5% (hydrocortisone) 1 appl AR BID PRN 28.35 grams 3RF hemorrhoids NS K64.9 - Unspecified hemorrhoids Coding Level of Care Code Est Pt Level 4 (86754) Diagnoses GERD (gastroesophageal reflux disease) K21.9 Constipation K59.00 Gallstones K80.20 Gastric ulcer K25.9 Morbid obesity E66.01 IBS (irritable bowel syndrome) K58.9
== END 2023-08-29 15:52 | disposition home or self-care (01) ==
PROVIDERS: PCP Internal Medicine; Visit Provider Nurse Practitioner
DX: K21.9 Gastro-esophageal reflux disease without esophagitis (principal); K59.00 Constipation, unspecified; K80.20 Calculus of gallbladder without cholecystitis without obstruction; K25.9 Gastric ulcer, unspecified as acute or chronic, without hemorrhage or perforation; E66.01 Morbid (severe) obesity due to excess calories; K58.9 Irritable bowel syndrome, unspecified
CPT/HCPCS: 99214

== ENCOUNTER 2023-09-15 18:00 | Emergency (ER) | payer OTHER, SELFPAY ==
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
[2023-09-15 18:05] VITALS: BP 123/88; PULSE 97; RESP 18; TEMP 36.6; O2SAT 97; BMI 50.8
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
[2023-09-15] MEDS: Acetaminophen 325 MG TABLET 975 MG PO (19:27)
[2023-09-15 19:49] VITALS: BP 143/78; PULSE 94; RESP 16; TEMP 36.3; O2SAT 97
[2023-09-15 20:33] VITALS: BP 143/78; PULSE 94; RESP 16; TEMP 36.3; O2SAT 97
== END 2023-09-15 20:34 | disposition home or self-care (01) ==
PROVIDERS: Emergency Provider Internal Medicine; PCP Internal Medicine
DX: S13.4XXA Sprain of ligaments of cervical spine, initial encounter (principal); S43.401A Unspecified sprain of right shoulder joint, initial encounter; M54.2 Cervicalgia; M25.512 Pain in left shoulder; V43.52XA Car driver injured in collision with other type car in traffic accident, initial encounter; Y93.9 Activity, unspecified; Y92.410 Unspecified street and highway as the place of occurrence of the external cause; Y99.8 Other external cause status
CPT/HCPCS: 72125; 73030; 99284

== ENCOUNTER 2023-10-10 09:34 | Outpatient (REF) | payer OTHER, SELFPAY ==
--- NOTE | ~2023-10-10 | US_ITS ---
EXAMINATION: US ABDOMEN COMPLETE CLINICAL INFORMATION: Calculus of gallbladder without cholecystitis without obstruction. COMPARISON: X-ray abdomen 08/29/2023 and 05/17/2021. Ultrasound abdomen complete 10/22/2018 and 04/15/2017. CT abdomen and pelvis 02/20/2015. TECHNIQUE: Real-time imaging of the abdominal viscera. Technically limited study secondary to bowel gas and body habitus. FINDINGS: PANCREAS: Limited visualization of pancreatic tail and head. Imaged portion of pancreatic body is unremarkable. ABDOMINAL AORTA: Poorly visualized. INFERIOR VENA CAVA: Visualized portions are normal. LIVER: Hepatomegaly, 18.1 cm. Increased hepatic parenchymal heterogeneity and echogenicity could be associated with hepatocellular disease/hepatic steatosis and severely limits visualization. Correlation with liver function tests and clinical exam recommended to determine further management. GALLBLADDER: Cholelithiasis. Limited visualization. Gallbladder wall thickness of 2.6 mm. COMMON BILE DUCT: Normal in caliber measuring 0.3 cm in diameter. RIGHT KIDNEY: No hydronephrosis. No renal calculi. Limited visualization. The kidney measures 11.2 cm in maximum dimension. LEFT KIDNEY: No hydronephrosis. No renal calculi. Limited visualization. The kidney measures 11.8 cm in maximum dimension. SPLEEN: Splenomegaly. The spleen measures 14.1 cm in maximum dimension. FREE FLUID: None. US/US abdomen complete IMPRESSION: 1. Hepatomegaly, 18.1 cm. Increased hepatic parenchymal heterogeneity and echogenicity could be associated with hepatocellular disease/hepatic steatosis and severely limits visualization. Correlation with liver function tests and clinical exam recommended to determine further management. 2. Cholelithiasis. Borderline gallbladder wall thickening. 3. Splenomegaly, 14.1 cm. This study was presented today October 25, 2023 for interpretation. Stat results provided at this time as requested by referring provider.
== END 2023-10-10 09:35 | disposition home or self-care (01) ==
LOC: HO.HMGCX 09:34
PROVIDERS: PCP Internal Medicine; Visit Provider Nurse Practitioner
DX: K80.20 Calculus of gallbladder without cholecystitis without obstruction (principal); R10.9 Unspecified abdominal pain
CPT/HCPCS: 76700

== ENCOUNTER 2023-11-22 14:37 | Outpatient (AMB) | payer OTHER, SELFPAY ==
[2023-11-22 14:41] VITALS: BP 129/80; PULSE 82; BMI 50.4
--- NOTE | 2023-11-22 14:41 | A.OFFVIS_ITS ---
Vital Signs 11/22/23 14:41 Height 5 ft 5 in Weight 302 lb 14.642 oz BMI 50.4 BP 129/80 Blood Pressure Location Lt brachial Position Sitting Pulse 82 Intake Visit Reasons: Follow up US results Intake Note: Patient in office today in follow up of US. CC: Patient reports that she gets RUQ abdominal pain sometimes, and she gets up with nausea every day. Clinical Psychologist Private Practice Required: No Allergies peanut [PEANUT] Allergy (Severe, Verified 11/22/23 14:56) ANAPHYLAXIS clindamycin [CLINDAMYCIN] Allergy (Mild, Verified 11/22/23 14:56) UNKNOWN strawberry Allergy (Mild, Verified 11/22/23 14:56) Abdominal Pain amoxicillin [From Augmentin] Allergy (Unknown, Verified 11/22/23 14:56) Unknown cefaclor [From CECLOR] Allergy (Unknown, Verified 11/22/23 14:56) UNKNOWN clavulanic acid [From Augmentin] Allergy (Unknown, Verified 11/22/23 14:56) Unknown erythromycin base [ERYTHROMYCIN BASE] Allergy (Unknown, Verified 11/22/23 14:56) RASH lemon [Lemon] Adverse Reaction (Unknown, Verified 11/22/23 14:56) VOMITING SEAFOOD Allergy (Severe, Uncoded 09/15/23 18:09) ANAPHYLAXIS berries Allergy (Unknown, Uncoded 09/15/23 18:09) Unknown HPI HPI Follow up US results: Details: Assessment & Plan (1) GERD (gastroesophageal reflux disease): Code(s): K21.9 - Gastro-esophageal reflux disease without esophagitis Category: Medical (2) Constipation: Code(s): K59.00 - Constipation, unspecified Category: Medical (3) Gallstones: Code(s): K80.20 - Calculus of gallbladder without cholecystitis without obstruction Category: Medical (4) Gastric ulcer: Code(s): K25.9 - Gastric ulcer, unspecified as acute or chronic, without hemorrhage or perforation Category: Medical (5) Morbid obesity: Code(s): E66.01 - Morbid (severe) obesity due to excess calories Category: Medical (6) IBS (irritable bowel syndrome): Code(s): K58.9 - Irritable bowel syndrome without diarrhea Category: Medical Plan Pt has been lost to follow up since 11/2022. She was sick twice for respiratory problems and this got us out of step. She is still having very bad menses, her last was extremely painful. She has not yet tried the bentyl. Now she thinks she is constipated. She is passing only very little pieces of feces and a little nagging pain in the RUQ. She also feels bloating. She would like an xray to evaluate stool burden and she would like a repeat US (we discussed HIDA but she wants time r/t anxiety). She needs a prior auth for her Culturelle - we will try. ROV 6 weeks to eval CIC/RUQ pain Orders: Orders XR abdomen w decubitus Today K80.20 - Calculus of gallbladder without cholecystitis without obstruction, R10.9 - Unspecified abdominal pain US abdomen complete Today K80.20 - Calculus of gallbladder without cholecystitis without obstruction, R10.9 - Unspecified abdominal pain Medications: New Lactobacillus rhamnosus GG (Culturelle) 1 cap PO DAILY 30 caps 6RF K58.9 - Irritable bowel syndrome without diarrhea Refilled famotidine 40 mg PO BID 180 tabs 1RF 90 days K21.9 - Gastro-esophageal reflux disease without esophagitis Proctosol HC 2.5% (hydrocortisone) 1 appl MT BID PRN 28.35 grams X-RAY OF THE ABDOMEN 09/11/23 FINDINGS: There is no free air under the diaphragm. The bowel gas pattern is normal with no evidence of ileus or obstruction. There is no significant stool burden. A few phleboliths are seen within the bladder. Degenerative changes are noted within the lower lumbar spine. XR/XR abdomen w decubitus IMPRESSION: No obstruction. No significant stool burden. ULTRASOUND OF THE ABDOMEN 10/10/23? FINDINGS: PANCREAS: Limited visualization of pancreatic tail and head. Imaged portion of pancreatic body is unremarkable. ABDOMINAL AORTA: Poorly visualized. INFERIOR VENA CAVA: Visualized portions are normal. LIVER: Hepatomegaly, 18.1 cm. Increased hepatic parenchymal heterogeneity and echogenicity could be associated with hepatocellular disease/hepatic steatosis and severely limits visualization. Correlation with liver function tests and clinical exam recommended to determine further management. GALLBLADDER: Cholelithiasis. Limited visualization. Gallbladder wall thickness of 2.6 mm. COMMON BILE DUCT: Normal in caliber measuring 0.3 cm in diameter. RIGHT KIDNEY: No hydronephrosis. No renal calculi. Limited visualization. The kidney measures 11.2 cm in maximum dimension. LEFT KIDNEY: No hydronephrosis. No renal calculi. Limited visualization. The kidney measures 11.8 cm in maximum dimension. SPLEEN: Splenomegaly. The spleen measures 14.1 cm in maximum dimension. FREE FLUID: None. US/US abdomen complete IMPRESSION: 1. Hepatomegaly, 18.1 cm. Increased hepatic parenchymal heterogeneity and echogenicity could be associated with hepatocellular disease/hepatic steatosis and severely limits visualization. Correlation with liver function tests and clinical exam recommended to determine further management. 2. Cholelithiasis. Borderline gallbladder wall thickening. 3. Splenomegaly, 14.1 cm. This study was presented today October 25, 2023 for interpretation. Stat results provided at this time as requested by referring provider. TODAY'S VISIT She tells that she was sent to a surgeon by her primary care provider but the surgeon told her that they were not convinced that her gallbladder needed to be removed. I concur with this. I explained that just because we have gallstones does not necessarily mean there causing the pain and if we really want to make sure will confirm it with a HIDA scan. She completely changed her diet and is avoiding fatty foods so as not to provoke any gallbladder attack but she thinks that the pain she was experiencing on the right side is more related to when she needs to move her bowels. She says she notices the pain will be strongest and then about half an hour to an hour later she will need to have a bowel. I tell her this is entirely possible unexplained the path of the colon in the pathophysiology behind. She is also going through some menometrorrhagia and hormonal changes and the bowels exquisitely sensitive to the hormonal changes in a woman's body. She asks about the fatty liver and I explained her that with normal liver function tests she only needs to concentrate on 3 lifestyle factors to try to not be 1 of the 20-30% people who go over to develop liver cancer or cirrhosis. She needs to work focus on slow steady weight loss, controlling her blood sugars if she should become diabetic, avoiding alcohol. She does not drink alcohol at all. I am sure her primary care provider will continue to monitor her transaminases and let her know if they start to rise and concerning. At point she feels quite stable and is in no need of additional treatment from our specialty. She is also always welcome to return to our service. She is quite well-versed on the signs and symptoms that would necessitate an ER visit potential removal of her gallbladder. [facility] Medical History Anxiety Asthma Surgical History Hx of tonsillectomy Family History Father Heart disease Mother Migraine Heart disease Social History Alcohol intake: never Patient Tobacco Use Status: Never used Tobacco Review of Systems Const Denies fatigue, Denies fever(s), Denies night sweats, Denies poor appetite and Denies weight loss ENT Reports Normal hearing present, Denies dental pain, Denies dysphagia, Denies hearing loss, Denies mouth pain, Denies odynophagia, Denies throat swelling, Denies tongue swelling and Reports other (Dentition adequate) Card Reports no additional complaints Resp Reports no additional complaints GI Details: Reports abdominal pain, Denies melena, Denies bloating, Denies hematochezia, Denies constipation, Denies GI cramping, Denies dysphagia, Denies excessive flatus, Denies early satiety, Denies heartburn, Denies diarrhea, Denies nausea, Denies odynophagia, Denies vomiting and Denies hematemesis Skin/Breast Denies pruritus, Denies lesions, Denies rash and Denies jaundice Neuro Reports Normal hearing present and Denies Abnormal speech present Endo Denies fatigue Aller/Immun Denies throat swelling and Denies tongue swelling Physical Exam Vital Signs: Last Vital Signs Pulse 82 11/22/23 14:41 BP 129/80 11/22/23 14:41 BMI result Body Mass Index 50.4 Const General: cooperative, no acute distress, well developed and well groomed Nutritional Appearance: well nourished and obese morbidly obese Orientation/consciousness: oriented to person, oriented to place and oriented to time Limitations: No language barrier HEENT Head: Yes normocephalic and Yes atraumatic Eyes General: appearance normal, both eyes and all related structures Pupils: Equal, round and reactive pupils present Neck Neck: Yes normal visual inspection and Yes no lymphadenopathy Thyroid: Thyroid normal Resp Effort & Inspection: normal respiratory effort and able to speak in complete sentences Auscultation: clear to auscultation bilaterally Cardio Rate: regular rate Rhythm: regular rhythm Heart sounds: Normal, physiologic split S2 sound present Peripheral pulses: radial pulses present and posterior tibial pulses present GI Inspection: No distended, Yes Abdominal panniculus present and Yes obesity Palpation (GI): Soft to palpation, nontender, no guarding, not rigid and No hepatosplenomegaly present Percussion: Yes normal to percussion Auscultation: normal bowel sounds Rectal Exam - Female: deferred Skin General skin exam: no rashes or lesions noted, turgor normal, skin not dry, no jaundice, No spider nevi and no striae Rashes: no rashes Nails: normal Neuro General: oriented to person, oriented to place and oriented to time Cranial nerves: Yes Equal, round and reactive pupils present and Yes Normal hearing present Speech: No Abnormal speech present Extrem General: Yes normal to inspection, No clubbing, No cyanosis and No edema Psych Appearance: grossly normal and well kempt Mental Status: mental status grossly normal Speech and movement: Normal speech and movement present Affect: normal affect Attitude: cooperative Thought process: Normal thought process present and not confabulating Thought content: Normal thought content present Insight: Fair insight present (Psych) Judgement: Fair judgement present (Psych) Assessment & Plan Assessment & Plan (1) Gallstones: Code(s): K80.20 - Calculus of gallbladder without cholecystitis without obstruction Category: Medical Plan She tells that she was sent to a surgeon by her primary care provider but the surgeon told her that they were not convinced that her gallbladder needed to be removed. I concur with this. I explained that just because we have gallstones does not necessarily mean there causing the pain and if we really want to make sure will confirm it with a HIDA scan. She completely changed her diet and is avoiding fatty foods so as not to provoke any gallbladder attack but she thinks that the pain she was experiencing on the right side is more related to when she needs to move her bowels. She says she notices the pain will be strongest and then about half an hour to an hour later she will need to have a bowel. I tell her this is entirely possible unexplained the path of the colon in the pathophysiology behind. She is also going through some menometrorrhagia and hormonal changes and the bowels exquisitely sensitive to the hormonal changes in a woman's body. She asks about the fatty liver and I explained her that with normal liver function tests she only needs to concentrate on 3 lifestyle factors to try to not be 1 of the 20-30% people who go over to develop liver cancer or cirrhosis. She needs to work focus on slow steady weight loss, controlling her blood sugars if she should become diabetic, avoiding alcohol. She does not drink alcohol at all. I am sure her primary care provider will continue to monitor her transaminases and let her know if they start to rise and concerning. At point she feels quite stable and is in no need of additional treatment from our specialty. She is also always welcome to return to our service. She is quite well-versed on the signs and symptoms that would necessitate an ER visit potential removal of her gallbladder. Coding Level of Care Code Est Pt Level 3 (67780) Diagnoses Gallstones K80.20
== END 2023-11-22 15:12 | disposition home or self-care (01) ==
PROVIDERS: PCP Internal Medicine; Visit Provider Nurse Practitioner
DX: K80.20 Calculus of gallbladder without cholecystitis without obstruction (principal)
CPT/HCPCS: 99213

== ENCOUNTER → 2023-11-22 14:37 | Outpatient (BNVA) | payer OTHER, SELFPAY | PROVIDERS: PCP Internal Medicine; Visit Provider Nurse Practitioner | DX: K21.9 Gastro-esophageal reflux disease without esophagitis (principal); K59.00 Constipation, unspecified; K80.20 Calculus of gallbladder without cholecystitis without obstruction; K25.9 Gastric ulcer, unspecified as acute or chronic, without hemorrhage or perforation; E66.01 Morbid (severe) obesity due to excess calories; K58.9 Irritable bowel syndrome, unspecified | CPT/HCPCS: 99212 ==

== ENCOUNTER 2023-11-30 21:33 | Emergency (ER) | payer OTHER, SELFPAY ==
[2023-11-30 21:49] VITALS: BP 125/79; PULSE 94; RESP 22; TEMP 36.6; O2SAT 96; BMI 50.3
[2023-11-30 22:49] LABS: MANUAL DIFF FLAG NO
[2023-11-30 22:52] LABS: Carbon Monoxide POC 3.2 %
[2023-11-30 22:53] LABS: Carbon Monoxide Refer to POC result
[2023-11-30 22:54] LABS: Basophils Absolute Auto 0.1 X10*3/uL (0.0-0.2); Basophils Percent Auto 0.7 % (0-2); Eosinophils Absolute Auto 0.1 X10*3/uL (0.0-0.4); Eosinophils Percent Auto 1.5 % (0-4); Hematocrit 38.2 % (37.0-47.0); Hemoglobin 12.4 g/dl (12.0-16.0); Imm Gran Abs Auto 0.03 X10*3/uL (0.00-0.03); Imm Gran Pct Auto 0.3 % (0.0-0.4); Lymphocytes Absolute Auto 2.2 X10*3/uL (1.2-4.9); Lymphocytes Percent Auto 24.4 % (20-40); Mean Corpuscular HGB Conc 32.5 g/dl (31.0-35.0); Mean Corpuscular Hemoglobin 26.1 pg (27.0-33.0); Mean Corpuscular Volume 80.3 fL (80.0-98.0); Mean Platelet Volume 9.7 fL (9.4-12.3); Monocytes Absolute Auto 0.5 X10*3/uL (0.1-1.2); Monocytes Percent Auto 5.7 % (2-11); Neutrophils Absolute Auto 6.2 x10*3/uL (2.0-8.3); Neutrophils Percent Auto 67.4 % (45-73); Platelet Count 256 X10*3/uL (160-400); Red Blood Count 4.76 X10*6/uL (4.20-5.50); Red Cell Distribution Width 13.9 % (11.0-16.0); White Blood Count 9.1 X10*3/uL (4.8-10.8)
--- NOTE | 2023-11-30 23:01 | PC.NURSE ---
aox4, ambulatory. reporting headache, and abd pain since being exposed to carbon monoxide in their home today. She states that police and fire came and detected CO2 after their alarm went off. Pt says it was coming from the stove. Shortly after pt got a headache, abd pain and also is very anxious. Son with her also a patient.
[2023-11-30 23:16] LABS: Alanine Aminotransferase 18 U/L (0-31); Alkaline Phosphatase 84 U/L (39-117); Anion Gap 10 (12-20); Aspartate Amino Transferase 21 U/L (5-31); Bilirubin Total 0.4 mg/dL (0.0-1.0); Blood Urea Nitrogen 9 mg/dL (9-16); Calcium 9.5 mg/dL (8.4-10.2); Carbon Dioxide 26 mmol/L (22-29); Chloride 106 mmol/L (96-108); Creatinine Clr Calc Pharmacy 115.3; Estimated Glomerular Filt Rate > 60; Glucose Random 99 mg/dL (60-115); Potassium 3.8 mmol/L (3.3-5.1); Sodium 138 mmol/L (135-145); Total Protein 7.1 g/dL (6.5-8.0)
--- NOTE | 2023-11-30 23:42 | ED.GENADULT ---
HPI - General Adult General Chief complaint: General Medical Stated complaint: carbon monoxide poisoning Time Seen by Provider: 11/30/23 23:31 Source: patient Mode of arrival: ambulatory Limitations: no limitations History of Present Illness ED Provider: Dr. Hue Gamboa HPI narrative: patient comes to the emergency room complaining of a headache, stating that earlier today her carbon monoxide detector went off. Patient states that they called the fire department who came to her house and detected a leak from the stove. Patient reported at this time headache, earlier today she reported nausea and dizziness but not at this time. Patient states that the fire department clear them to go back home since the levels were 0 Related Data Home Medications ?Medication ?Instructions ?Recorded ?Confirmed cholecalciferol (vitamin D3) 50 50 mcg PO DAILY 05/07/21 07/04/23 mcg (2,000 unit) tablet fluticasone propionate 230 2 puff PO BID 05/07/21 07/04/23 mcg-salmeterol 21 mcg/actuation HFA inhaler (Advair HFA) folic acid 800 mcg tablet 0.8 mg PO DAILY 05/07/21 07/04/23 multivitamin with folic acid 400 1 tab PO DAILY 05/07/21 07/04/23 mcg tablet (Daily-Meri (with folic acid)) sodium chloride 0.65 % nasal spray spray intranasal 05/07/21 07/04/23 aerosol (Saline Nasal) diphenhydramine HCl 25 mg capsule 25 mg PO TID PRN 05/17/21 07/04/23 (Banophen) biotin 5 mg capsule 5 mg PO DAILY 08/20/21 07/04/23 cetirizine 10 mg tablet 20 mg PO DAILY PRN allergies 08/20/21 07/04/23 fluticasone propionate 50 2 spray intranasal DAILY PRN 09/10/21 07/04/23 mcg/actuation nasal spray,suspension acetaminophen 325 mg tablet 325 mg PO Q4H PRN pain 03/29/22 07/04/23 ferrous gluconate 324 mg (38 mg 324 mg PO DAILY 08/29/23 iron) tablet Previous Rx's ?Medication ?Instructions ?Recorded albuterol sulfate 2.5 mg/3 mL 2.5 mg (3 mL) inhalation Q4-6H PRN 11/07/20 (0.083 %) solution for nebulization bronchospasm #15 mL albuterol sulfate 90 mcg/actuation 2 puff inhalation Q4-6H PRN 11/07/20 aerosol inhaler shortness of breath or wheezing #6.7 grams meclizine 25 mg tablet 25 mg PO TID PRN dizziness #20 tabs 12/18/21 docusate sodium 100 mg capsule 100 mg PO .DAILY WITH FOOD 30 days 05/06/22 (Colace) #30 caps dicyclomine 20 mg tablet 20 mg PO QID 30 days #120 tabs 11/15/22 ondansetron HCl 4 mg tablet 4 mg PO Q8H PRN nausea and 12/20/22 vomiting 4 days #7 tabs benzonatate 200 mg capsule 200 mg PO TID 7 days #21 caps 05/15/23 ibuprofen 100 mg/5 mL oral 600 mg (30 mL) PO Q6H PRN pain 30 07/04/23 suspension (Children's Ibuprofen) days #473 mL Lactobacillus rhamnosus GG 10 1 cap PO DAILY #30 caps 08/29/23 billion cell capsule (Culturelle) Proctosol HC 2.5 % topical cream 1 appl FL BID PRN hemorrhoids 08/29/23 perineal applicator #28.35 grams (hydrocortisone) famotidine 40 mg tablet 40 mg PO BID 90 days #180 tabs 08/29/23 cyclobenzaprine 5 mg tablet 5 mg PO TID PRN muscle spasm #14 09/15/23 tabs riboflavin (vitamin B2) 100 mg 400 mg (4 x 100 mg) PO DAILY 90 10/06/23 tablet (Vitamin B-2) days #360 tabs Allergies Allergy/AdvReac Type Severity Reaction Status Date / Time peanut [PEANUT] Allergy Severe ANAPHYLAXIS Verified 11/30/23 21:50 clindamycin [CLINDAMYCIN] Allergy Mild UNKNOWN Verified 11/30/23 21:50 strawberry Allergy Mild Abdominal Verified 11/30/23 21:50 Pain amoxicillin [From Augmentin] Allergy Unknown Unknown Verified 11/30/23 21:50 cefaclor [From CECLOR] Allergy Unknown UNKNOWN Verified 11/30/23 21:50 clavulanic acid Allergy Unknown Unknown Verified 11/30/23 21:50 [From Augmentin] erythromycin base Allergy Unknown RASH Verified 11/30/23 21:50 [ERYTHROMYCIN BASE] lemon [Lemon] AdvReac Unknown VOMITING Verified 11/30/23 21:50 SEAFOOD Allergy Severe ANAPHYLAXIS Uncoded 11/30/23 21:50 berries Allergy Unknown Unknown Uncoded 11/30/23 21:50 Review of Systems Review of Systems: Constitutional : No Weight loss, No Fever, No Chills, No Night Sweats, No Fatigue, No Malaise ENT/Mouth : No Hearing loss, No Ear Pain, No Nasal Congestion, No Sinus Pain, No Hoarseness, No sore throat, No Rhinorrhea, No Swallowing Difficulty Eyes: No Eye Pain, No Swelling, No Redness, No Foreign Body, No Discharge, No Vision Changes Cardiovascular : No Chest Pain, No SOB, No Dyspnea on Exertion, No Orthopnea, No Edema, No Palpitations Respiratory : No Cough, No Sputum, No Wheezing, No Smoke Exposure, No Dyspnea Gastrointestinal : No Nausea, No Vomiting, No Diarrhea, No Constipation, No abdominal Pain, No Hematochezia, No Melena Genitourinary : no irregular bleeding, No Dysuria, No Urinary Frequency, No Hematuria, No Urinary Incontinence, No Urgency, No Flank Pain, No Urinary Flow Changes, No Hesitancy Musculoskeletal : No joint pain, No Myalgias, No Joint Swelling Skin : No Skin Lesions, No rash Neuro : No Weakness, No Numbness, No Paresthesias, No Loss of Consciousness, No Dizziness complaining of Headache Psych : No Anxiety/Panic, No Depression, No SI/HI/AH/VH, No Social Issues, Heme/Lymph: No Bruising, No Bleeding,No Lymphadenopathy Endocrine : No Polyuria, No Polydipsia, No Temperature Intolerance [facility] Past Medical History Medical History Anxiety Asthma Surgical History Hx of tonsillectomy Family History Family History Father Heart disease Mother Migraine Heart disease Social History Social History Alcohol intake: never Patient Tobacco Use Status: Never used Tobacco Smoked in Last 30 Days: No Use of substances other than those prescribed or required for medical reasons: No Advance Directives: No Advance Directives Information Provided: No Do you have a plan to hurt others: No Plan Patient : No Physical Exam ED Vital Signs: Vital Signs - 24 hr 11/30/23 21:49 Temperature 97.9 F Pulse Rate 94 Respiratory Rate 22 H Blood Pressure 125/79 Pulse Oximetry 96 Oxygen Delivery Method Room Air BMI result Body Mass Index 50.3 Const Other: Appearance: Alert. Oriented X3. No acute distress. Eyes: Pupils equal, round and reactive to light. ENT: Pharynx normal. Neck: Normal inspection. Neck supple. No lymph nodes noted. No crepitus CVS: Normal heart rate and rhythm. Pulses normal. Normal S1 and S2 Respiratory: No respiratory distress. Breath sounds normal. No Wheezing. No rales Abdomen: Soft and nontender. No rigidity. No distention. Skin: Skin warm and dry. Normal skin color. Normal skin turgor. Extremities: No lower extremity edema. No Lacerations. No Rash Neuro: Oriented X 3. No motor deficit. No sensory deficit. Moving all extremities. No slurred speech. CN 2 through 12 grossly intact Psych: calm, cooperative, normal affect my interpretation of labs: Normal hematology and chemistry, carboxyhemoglobin level 3.2, patient not a smoker . Level is minimally elevated. - Given that the patient is symptomatic, patient was given Tylenol for headache and put on oxygen. Medical Decision Making Lab Data 11/30/23 22:45 11/30/23 22:45 Labs: Lab Results 11/30/23 11/30/23 Range/Units 22:45 22:49 WBC 9.1 (4.8-10.8) X10*3/uL RBC 4.76 (4.20-5.50) X10*6/uL Hgb 12.4 (12.0-16.0) g/dl Hct 38.2 (37.0-47.0) % MCV 80.3 (80.0-98.0) fL MCH 26.1 L (27.0-33.0) pg MCHC 32.5 (31.0-35.0) g/dl RDW 13.9 (11.0-16.0) % Plt Count 256 (160-400) X10*3/uL MPV 9.7 (9.4-12.3) fL Immature Gran % (Auto) 0.3 (0.0-0.4) % Neut % (Auto) 67.4 (45-73) % Lymph % (Auto) 24.4 (20-40) % Boundary % (Auto) 5.7 (2-11) % Eos % (Auto) 1.5 (0-4) % Baso % (Auto) 0.7 (0-2) % Lymph # (Auto) 2.2 (1.2-4.9) X10*3/uL Boundary # (Auto) 0.5 (0.1-1.2) X10*3/uL Eos # (Auto) 0.1 (0.0-0.4) X10*3/uL Baso # (Auto) 0.1 (0.0-0.2) X10*3/uL Abs Immat Gran (auto) 0.03 (0.00-0.03) X10*3/uL Absolute Neuts (auto) 6.2 (2.0-8.3) x10*3/uL Absolute Nucleated RBC 0.000 (0.0-0.012) X10*3/uL Nucleated RBC % (auto) 0.0 (0.0-0.2) /100WBC Carboxyhemoglobin % 3.2 % Sodium 138 (135-145) mmol/L Potassium 3.8 (3.3-5.1) mmol/L Chloride 106 (96-108) mmol/L Carbon Dioxide 26 (22-29) mmol/L Anion Gap 10 L (12-20) BUN 9 (9-16) mg/dL Creatinine 0.92 (0.5-1.4) mg/dL Estim Creat Clear Calc 115.3 Estimated GFR > 60 Random Glucose 99 (60-115) mg/dL Calcium 9.5 (8.4-10.2) mg/dL Total Bilirubin 0.4 (0.0-1.0) mg/dL AST 21 (5-31) U/L ALT 18 (0-31) U/L Alkaline Phosphatase 84 (39-117) U/L Total Protein 7.1 (6.5-8.0) g/dL Albumin 4.0 (3.5-5.0) g/dL Critical Care Time Critical Care Time Critical Care Time: Yes Total Critical Care Time: 30 Attestation: I have personally provided critical care time. Time includes review of lab data, radiology results, discussion with consultants, and monitoring for potential decompensation. Intervention performed as documented. Discharge Plan Discharge Clinical Impression: Accidental exposure to carbon monoxide, Headache Patient Disposition: Home, Self-Care Instructions: Carbon Monoxide Poisoning (ED) Additional Instructions: Please follow-up with your primary care physician tomorrow. If you have any worsening or new symptoms, please return to the emergency room or call 911 Prescriptions: No Action docusate sodium [Colace] 100 mg capsule 100 mg PO .DAILY WITH FOOD 30 Days Qty: 30 6RF riboflavin (vitamin B2) [Vitamin B-2] 100 mg tablet 400 mg PO DAILY 90 Days Qty: 360 3RF albuterol sulfate 2.5 mg /3 mL (0.083 %) solution for nebulization 2.5 mg inhalation Q4-6H PRN (Reason: bronchospasm) Qty: 15 0RF albuterol sulfate 90 mcg/actuation HFA aerosol inhaler 2 puff inhalation Q4-6H PRN (Reason: shortness of breath or wheezing) Qty: 6.7 0RF meclizine 25 mg tablet 25 mg PO TID PRN (Reason: dizziness) Qty: 20 0RF ondansetron HCl 4 mg tablet 4 mg PO Q8H PRN (Reason: nausea and vomiting) 4 Days Qty: 7 0RF benzonatate 200 mg capsule 200 mg PO TID 7 Days Qty: 21 0RF cyclobenzaprine 5 mg tablet 5 mg PO TID PRN (Reason: muscle spasm) Qty: 14 0RF diphenhydramine HCl [Banophen] 25 mg capsule 25 mg PO TID PRN biotin 5 mg capsule 5 mg PO DAILY cetirizine 10 mg tablet 20 mg PO DAILY PRN (Reason: allergies) fluticasone propionate 50 mcg/actuation spray,suspension 2 spray intranasal DAILY PRN acetaminophen 325 mg tablet 325 mg PO Q4H PRN (Reason: pain) dicyclomine 20 mg tablet 20 mg PO QID 30 Days Qty: 120 1RF cholecalciferol (vitamin D3) 50 mcg (2,000 unit) tablet 50 mcg PO DAILY Advair HFA 230-21 mcg/actuation HFA aerosol inhaler 2 puff PO BID Saline Nasal 0.65 % aerosol,spray intranasal folic acid 800 mcg tablet 0.8 mg PO DAILY multivitamin with folic acid [Daily-Meri (with folic acid)] 400 mcg tablet 1 tab PO DAILY ibuprofen [Children's Ibuprofen] 100 mg/5 mL suspension 600 mg PO Q6H PRN (Reason: pain) 30 Days Qty: 473 3RF Rx Instructions: Grape flavor (d/t maurice allergy) ferrous gluconate 324 mg (38 mg iron) tablet 324 mg PO DAILY Culturelle 10 billion cell capsule 1 cap PO DAILY Qty: 30 6RF famotidine 40 mg tablet 40 mg PO BID 90 Days Qty: 180 1RF hydrocortisone [Proctosol HC] 2.5 % cream with perineal applicator 1 appl FL BID PRN (Reason: hemorrhoids) Qty: 28.35 3RF Print Language: Algerian
[2023-11-30 23:56] VITALS: BP 126/69; PULSE 85; RESP 18; TEMP 36.6; O2SAT 100
[2023-12-01] MEDS: Acetaminophen 325 MG TABLET 975 MG PO (00:20)
[2023-12-01 00:34] VITALS: BP 126/69; PULSE 85; RESP 18; TEMP 36.6; O2SAT 100
== END 2023-12-01 00:35 | disposition home or self-care (01) ==
PROVIDERS: Emergency Provider Emergency Medicine; PCP Internal Medicine
DX: R51.9 Headache, unspecified (principal); T58.91XA Toxic effect of carbon monoxide from unspecified source, accidental (unintentional), initial encounter; R11.0 Nausea; R42 Dizziness and giddiness; Z79.899 Other long term (current) drug therapy
CPT/HCPCS: 36415; 80053; 82375; 85025; 99283; 99284

== ENCOUNTER 2023-12-19 11:31 | Outpatient (AMB) | payer OTHER, SELFPAY ==
[2023-12-19 11:32] VITALS: BMI 50.4
--- NOTE | 2023-12-19 11:32 | A.OFFVIS_ITS ---
Vital Signs 12/19/23 11:32 Height 5 ft 5 in Weight 303 lb BMI 50.4 Intake Visit Reasons: 5 Month F/U Intake Note: Patient presents for 5 month follow up. Allergies peanut [PEANUT] Allergy (Severe, Verified 12/19/23 11:35) ANAPHYLAXIS clindamycin [CLINDAMYCIN] Allergy (Mild, Verified 12/19/23 11:35) UNKNOWN strawberry Allergy (Mild, Verified 12/19/23 11:35) Abdominal Pain amoxicillin [From Augmentin] Allergy (Unknown, Verified 12/19/23 11:35) Unknown cefaclor [From CECLOR] Allergy (Unknown, Verified 12/19/23 11:35) UNKNOWN clavulanic acid [From Augmentin] Allergy (Unknown, Verified 12/19/23 11:35) Unknown erythromycin base [ERYTHROMYCIN BASE] Allergy (Unknown, Verified 12/19/23 11:35) RASH lemon [Lemon] Adverse Reaction (Unknown, Verified 12/19/23 11:35) VOMITING SEAFOOD Allergy (Severe, Uncoded 12/19/23 11:35) ANAPHYLAXIS berries Allergy (Unknown, Uncoded 12/19/23 11:35) Unknown Medication List - Last Reconciled 12/19/23 by ALFONSO Peterson acetaminophen 325 mg PO Q4H PRN albuterol sulfate 2.5 mg (3 mL) inhalation Q4-6H PRN albuterol sulfate 90 mcg/actuation 2 puffs inhalation Q4-6H PRN benzonatate 200 mg PO TID 7 days biotin 5 mg PO DAILY cetirizine 20 mg PO DAILY PRN cholecalciferol (vitamin D3) 50 mcg PO DAILY cyclobenzaprine 5 mg PO TID PRN dicyclomine 20 mg PO QID 30 days diphenhydramine HCl (Banophen) 25 mg PO TID PRN docusate sodium (Colace) 100 mg PO .DAILY WITH FOOD 30 days famotidine 40 mg PO BID 90 days ferrous gluconate 324 mg PO DAILY fluticasone propion-salmeterol 230-21 mcg/actuation (Advair HFA) 2 puffs PO BID fluticasone propionate 50 mcg/actuation 2 sprays intranasal DAILY PRN folic acid 0.8 mg PO DAILY ibuprofen (Children's Ibuprofen) 600 mg (30 mL) PO Q6H PRN 30 days Lactobacillus rhamnosus GG (Culturelle) 1 cap PO DAILY meclizine 25 mg PO TID PRN multivitamin with folic acid 400 mcg (Daily-Meri (with folic acid)) 1 tab PO DAILY ondansetron HCl 4 mg PO Q8H PRN 4 days Proctosol HC 2.5% (hydrocortisone) 1 appl [place] BID PRN NS riboflavin (vitamin B2) (Vitamin B-2) 400 mg (4 x 100 mg) PO DAILY 90 days sodium chloride 0.65% (Saline Nasal) sprays intranasal HPI Comments Details: 38-yr-old female presents for f/u visit. Pt denies any significant interval medical changes. Pt reports that overall her migraines or headaches are better. Still has a pre/postmenstrual migraine. Can be dizzy/off-balance at onset of migraine. At onset of migraine, tries to rest and take more water. Now more responsive to Ibuprofen and Tylenol now that she is not taking the Ibuprofen regularly. Tylenol and Ibuprofen work better together. Trying to avoid known triggers- avoiding Caffeine and chocolate. She still does clench her jaw in her sleep- does not have a mouth guard- is missing mx teeth. She is having just occasional migraine w/ visual aura- lightening bolt/squigg ling lines w/ visual loss x's 30-45 minutes f/b severe migraine- just 2-3 x's in the last year. Her typical mild-mod migraine starts as brief dizziness, mod-severe pressure headache in usually top/crown or less often front of the head. A/w vision feeling crooked, mild photophobia, mild phonophobia. Triggers- just before/after menses, caffeine. PFSH Medical History Anxiety Asthma Surgical History Hx of tonsillectomy Family History Father Heart disease Mother Migraine Heart disease Social History Alcohol intake: never Patient Tobacco Use Status: Never used Tobacco Physical Exam Vital Signs: BMI result Body Mass Index 50.4 Const General: cooperative and no acute distress Orientation/consciousness: patient oriented x3 Resp Effort & Inspection: normal respiratory effort and able to speak in complete sentences Neuro General: patient oriented x3 Cranial nerves: Yes CN's II-XII intact bilaterally Cognition (Neuro): normal cognition Psych Appearance: grossly normal Mental Status: mental status grossly normal Speech and movement: Normal speech and movement present Affect: normal affect Attitude: cooperative Assessment & Plan Assessment & Plan (1) Migraine with aura: Code(s): G43.109 - Migraine with aura, not intractable, without status migrainosus Category: Medical (2) Dizziness: Code(s): R42 - Dizziness and giddiness Category: Medical Plan Brain MRI to further assess dizziness- previously not completed d/t pt is c laustrophobic. [address]- unremarkable. Continue Riboflavin. Continue Children's liquid Ibuprofen- pt requests grape flavor only d/t strawberry/maurice allergy. Allergy consult as scheduled in Nov- to clarify if there are allergy concerns w/ flavored liquid meds. Continue Tylenol prn. Continue prn Meclizine. Continue prn Zofran ODT 4mg- pt cannot take tablet version d/t peanut allergies. Consider trying a simple OTC mouth guard. Previous trials: Mag- caused constipation. f/u in 6 months or sooner prn. Medications: New ondansetron 4 mg PO Q6H 30 days PRN 20 tabs 3RF nausea and vomiting Changed From meclizine 25 mg PO TID PRN 20 tabs 0RF dizziness To meclizine 25 mg PO TID 30 days PRN 20 tabs 3RF dizziness Discontinued ondansetron HCl Discontinued Reason: Doctor's Order 4 mg PO Q8H 4 days PRN 7 tabs 0RF nausea and vomiting Coding Level of Care Code Est Pt Level 4 (95179) Diagnoses Migraine with aura G43.109 Dizziness R42
== END 2023-12-19 12:14 | disposition home or self-care (01) ==
PROVIDERS: PCP Internal Medicine; Visit Provider Nurse Practitioner Family
DX: G43.109 Migraine with aura, not intractable, without status migrainosus (principal); R42 Dizziness and giddiness
CPT/HCPCS: 99214

== ENCOUNTER → 2023-12-19 11:31 | Outpatient (BNVA) | payer OTHER, SELFPAY | PROVIDERS: PCP Internal Medicine; Visit Provider Nurse Practitioner Family | DX: G43.109 Migraine with aura, not intractable, without status migrainosus (principal); R42 Dizziness and giddiness | CPT/HCPCS: 99212 ==

== ENCOUNTER 2024-07-02 11:28 | Outpatient (AMB) | payer OTHER, SELFPAY ==
--- NOTE | 2024-07-02 11:35 | MHC.OFFVIS ---
Vital Signs 07/02/24 11:36 Height 5 ft 5 in Weight 310 lb BMI 51.6 BP 130/78 Blood Pressure Location Rt brachial Position Sitting Pulse 93 Pulse Source Pulse Oximeter Pulse Oximetry (%) 97 Oxygen Delivery Method Room Air Intake Visit Reasons: Follow up 6mo Intake Note: Patient presents follow up Migraine medication. Allergies peanut [PEANUT] Allergy (Severe, Verified 07/02/24 11:38) ANAPHYLAXIS clindamycin [CLINDAMYCIN] Allergy (Mild, Verified 07/02/24 11:38) UNKNOWN strawberry Allergy (Mild, Verified 07/02/24 11:38) Abdominal Pain amoxicillin [From Augmentin] Allergy (Unknown, Verified 07/02/24 11:38) Unknown cefaclor [From CECLOR] Allergy (Unknown, Verified 07/02/24 11:38) UNKNOWN clavulanic acid [From Augmentin] Allergy (Unknown, Verified 07/02/24 11:38) Unknown erythromycin base [ERYTHROMYCIN BASE] Allergy (Unknown, Verified 07/02/24 11:38) RASH lemon [Lemon] Adverse Reaction (Unknown, Verified 07/02/24 11:38) VOMITING SEAFOOD Allergy (Severe, Uncoded 07/02/24 11:38) ANAPHYLAXIS berries Allergy (Unknown, Uncoded 07/02/24 11:38) Unknown Medication List - Last Reconciled 07/02/24 by ALFONSO Peterson acetaminophen 325 mg PO Q4H PRN albuterol sulfate 2.5 mg (3 mL) inhalation Q4-6H PRN albuterol sulfate 90 mcg/actuation 2 puffs inhalation Q4-6H PRN benzonatate 200 mg PO TID 7 days biotin 5 mg PO DAILY cetirizine 20 mg PO DAILY PRN cholecalciferol (vitamin D3) 50 mcg PO DAILY cyclobenzaprine 5 mg PO TID PRN dicyclomine 20 mg PO QID 30 days diphenhydramine HCl (Banophen) 25 mg PO TID PRN docusate sodium (Colace) 100 mg PO .DAILY WITH FOOD 30 days famotidine 40 mg PO BID 90 days ferrous gluconate 324 mg PO DAILY fluticasone propion-salmeterol 230-21 mcg/actuation (Advair HFA) 2 puffs PO BID fluticasone propionate 50 mcg/actuation 2 sprays intranasal DAILY PRN folic acid 0.8 mg PO DAILY ibuprofen (Children's Ibuprofen) 600 mg (30 mL) PO Q6H PRN 30 days Lactobacillus rhamnosus GG (Culturelle) 1 cap PO DAILY meclizine 25 mg PO TID PRN 30 days multivitamin with folic acid 400 mcg (Daily-Meri (with folic acid)) 1 tab PO DAILY ondansetron 4 mg PO Q6H PRN 30 days Proctosol HC 2.5% (hydrocortisone) 1 appl [place] BID PRN NS riboflavin (vitamin B2) (Vitamin B-2) 400 mg (4 x 100 mg) PO DAILY 90 days sodium chloride 0.65% (Saline Nasal) sprays intranasal HPI Comments Details: 38-yr-old female presents for f/u visi for migraine. Pt denies any significant interval medical changes. She reports increased stress, which can impact her sleep, diet, overall physical activity. She notes slight weight increase, secondary to taking a course of prednisone for asthma exacerbation last couple of months, or is now feeling better She has returned to school, she is trying to study for the [employer] exam She would like to discuss starting prescription migraine treatment today. Patient states she is noticing more migraine which is lasting longer and not responding to ibuprofen/Tylenol/increase fluid intake, but less general mild day-to-day headaches. Pt reports her migraines occur typically when stressed, but sometimes before, and always after her menstrual cycle. Notices left TMJ region discomfort during this headache- imelda with talking. She is now having 2 migraines per month, which last 3-4 days in total. She is having less overall mild headache- no longer daily. Mild headache may feel like head pressure especially if she stands quickly. Her last migraine with visual aura was in March. Still has a pre/postmenstrual migraine. Can be dizzy/off-balance at onset of migraine. Has a h/o clenching her jaw in her sleep- does not have a mouth guard- is missing mx teeth. Typical migraine w/ visual aura- lightening bolt/squiggling lines w/ visual loss x's 30-45 minutes f/b severe migraine- just 2-3 x's in the last year. Typical mild-mod migraine starts as brief dizziness, mod-severe pressure headache in usually top/crown or less often front of the head. A/w vision feeling crooked, mild photophobia, mild phonophobia. Triggers- just before/after menses, caffeine, stress. PFSH Medical History Anxiety Asthma Surgical History Hx of tonsillectomy Family History Father Heart disease Mother Migraine Heart disease Social History Alcohol intake: never Patient Tobacco Use Status: Never used Tobacco Physical Exam Vital Signs: Last Vital Signs Pulse 93 07/02/24 11:36 BP 130/78 07/02/24 11:36 Pulse Ox 97 07/02/24 11:36 Oxygen Delivery Method Room Air 07/02/24 11:36 BMI result Body Mass Index 51.6 Const General: cooperative and no acute distress Orientation/consciousness: patient oriented x3 Resp Effort & Inspection: normal respiratory effort and able to speak in complete sentences Neuro General: patient oriented x3 Cranial nerves: Yes CN's II-XII intact bilaterally Cognition (Neuro): normal cognition Psych Appearance: grossly normal Mental Status: mental status grossly normal Speech and movement: Normal speech and movement present Affect: normal affect Attitude: cooperative Assessment & Plan Assessment & Plan (1) Migraine with aura: Code(s): G43.109 - Migraine with aura, not intractable, without status migrainosus Category: Medical (2) Dizziness: Code(s): R42 - Dizziness and giddiness Category: Medical (3) Menstrual migraine: Code(s): G43.829 - Menstrual migraine, not intractable, without status migrainosus Category: Medical Qualifiers: Status migrainosus presence: with status migrainosus Intractability: not intractable Qualified Code(s): G43.821 - Menstrual migraine, not intractable, with status migrainosus Plan For dizziness: Improved, we will monitor We have held previous order for Brain MRI to further assess dizziness- previously not completed d/t pt is claustrophobic. [address]- unremarkable. For migraine prevention: Continue Riboflavin. Premenstrual migraine: May try taking 1 cup of at a [place] per day at onset of menstrual cycle, and hopes this reduces severity of post menstrual migraine attack For acute migraine treatment: Trial Sumatriptan 100mg tab, 1/2 - 1 tab (50-100mg) at onset of headache, may repeat in 2 hours. Max of 2 tabs (200mg) per 24 hours. May take sumatriptan with Tylenol and ibuprofen as below. Potential adverse effects of triptans, include but are not limited to nausea, fatigue, chest tightness/tingling (usually passes within a few minutes), medication overuse headaches. Continue Children's liquid Ibuprofen- pt requests grape flavor only d/t strawberry/maurice allergy. Allergy consult as scheduled in Nov- to clarify if there are allergy concerns w/ flavored liquid meds- ? if completed. Continue Tylenol prn. Continue prn Meclizine. Continue prn Zofran ODT 4mg- pt cannot take tablet version d/t peanut allergies. Consider trying a simple OTC mouth guard. Previous trials: Mag- caused constipation. f/u in 6 months or sooner prn. Pt to follow-up in 6 months or sooner prn. Medications: New sumatriptan succinate (0.5 - 1 x 100 mg) 50 - 100 mg orally at onset of headache, may repeat in 2 hrs PRN; max 2 tabs per day or 4 tabs/week (may take with Ibuprofen) 30 days 12 tabs 6RF migraine headache Coding Level of Care Code Est Pt Level 4 (79965) Diagnoses Migraine with aura G43.109 Dizziness R42 Menstrual migraine with status migrainosus, not intractable G43.821 Status migrainosus presence: with status migrainosus Intractability: not intractable
[2024-07-02 11:36] VITALS: BP 130/78; PULSE 93; O2SAT 97; BMI 51.6
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
--- OUTSIDE RECORDS SUMMARY | 2024-07-02 13:56 | XMS_ITS | Encounter Summary ---
Author Organization [facility] Address [address] [place] [address] Care Team Providers Care Radiographer Mammographer Name Role Phone Karin Clemente MD Primary Care Provider [phone] Reason for Visit * Reason Onset Date Comments Appointment 05/14/2024 Coronary CTA Encounter Details Date Type Department Care Team (Late st Contact Info) Description 05/14/2024 Telephone [facility] [address] [facility] [address] [place] [address] Jonatan Park MD [address] [facility] [address] [place] [address] Appointment (Coronary CTA) Social History Tobacco Use Types Packs/Day Years Used Date Smoking Tobacco: Never Passive Smoke Exposure: Never Smokeless Tobacco: Never Alcohol Use Standard Drinks/Week Comments No 0 (1 standard drink = 0.6 oz pur e alcohol) Comments Unknown Sex and Gender Information Value Date Recorded Sex Assigned at Female 04/15/2024 11:18 AM EST Legal Sex Female 3:08 PM EST Gender Identity Female 04/15/2024 11:18 AM EST Sexual Orientation Bisexual 04/15/2024 11 :18 AM EST documented as of this encounter Progress Notes * Cristina Thorpe - 07/01/2024 9:24 AM EDT Pt is scheduled for a Coronary CTA scan on 09/05/24, 2:00pm arr., 3:30pm scan, [place]. Order and ov note faxed. Letter mailed. * Cristina Thorpe - 06/18/2024 7:27 AM EDT Order, demos and ov note have been refaxed to [facility] scheduling to authorize and schedule pt for a Coronary CTA scan. They will contact the pt to schedule this appointment. * Yanni Dodge - 06/17/2024 1:43 PM EDT The patient called, she spoke with [facility] and they are stating they never received the orders forher CTA. Please resend and call the patient back at [phone]. * Cristina Thorpe - 05/14/2024 12:37 PM EST Order, demos and ov note have been faxed to [facility] scheduling to authorize and schedule pt for a Coronary CTA scan. They will contact the pt to schedule this appointment. documented in this encounter Plan of Treatment Upcoming Encounters Date Type Department Care Team (Late st Contact Info) Description 07/04/2024 10:45 AM EDT Office Visit Obstetrics and Gynecology - [place] [address] [place] [address] Latasha Jorgensen, [address] [address] 07/09/2024 12:30 PM EDT Treatment [address] [phone] Lazaro Tidwell, HEAD UP OPERATOR 07/11/2024 1:30 PM EDT Treatment [facility] [address] [phone] Lazaro Tidwell, HEAD UP OPERATOR 07/16/2024 11:30 AM EDT Office Visit [address] [address] Karin Clemente MD [address] [place] [address] 07/16/2024 1:00 PM EDT Treatment [facility] [address] [phone] Ines Tidwell, PT 07/18/2024 1:00 PM EDT Treatment [facility] [address] [phone] Lazaro Tidwell, HEAD UP OPERATOR 07/23/2024 3:30 PM EDT Treatment [facility] [address] [phone] Benton Roth, HEAD UP OPERATOR 07/30/2024 1:00 PM EDT Treatment [facility] [address] [phone] Ines Tidwell, PT 08/01/2024 10:00 AM EDT Treatment [facility] [address] [phone] Ines Tidwell, PT 08/06/2024 1:45 PM EDT Office Visit Orthopedic Surgery [facility] [address] [phone] Jonatan Marie, DPM [address] [address] 08/08/2024 10:30 AM EDT Office Visit Pulmonolgy [facility] 175 [facility] [address] [place] [phone] Shelly Ruiz NP [address] [address] 09/03/2024 11:00 AM EDT Office Visit Gastroenterology - [place] [address] [place] [phone] Amelia Garcia, ES 175 [facility] 200 [place] [address] 09/26/2024 11:15 AM EDT Office Visit Obstetrics & Gynecology - [facility] [address] [place] [phone] Cherie Wilkinson, CNM [address] [place] [address] 10/08/2024 11:15 AM EDT Office Visit Bariatric Surgery - [place] 175 [facility] [address] [place] [phone] Daisy Dan MD [address] [phone] documented as of this encounter Visit Diagnoses Not on filedocumented in this encounter Care Teams Radiographer Mammographer Relationship Specialty Start Date End Date Karin Clemente MD [address] [place] [address] PCP - General Internal Medicine 01/23/24 documented as of this encounter
== END 2024-07-02 12:22 | disposition home or self-care (01) ==
LOC: HO.HSMS 11:28
PROVIDERS: PCP Internal Medicine; Visit Provider Nurse Practitioner Family
DX: G43.109 Migraine with aura, not intractable, without status migrainosus (principal); R42 Dizziness and giddiness; G43.821 Menstrual migraine, not intractable, with status migrainosus
CPT/HCPCS: 99214

== ENCOUNTER → 2024-07-02 11:28 | Outpatient (BNVA) | payer OTHER, SELFPAY | PROVIDERS: PCP Internal Medicine; Visit Provider Nurse Practitioner Family | DX: G43.109 Migraine with aura, not intractable, without status migrainosus (principal); G43.821 Menstrual migraine, not intractable, with status migrainosus; R42 Dizziness and giddiness | CPT/HCPCS: 99212 ==

== ENCOUNTER 2024-07-27 13:10 | Emergency (ER) | payer OTHER, SELFPAY ==
--- NOTE | ~2024-07-27 | XR_ITS ---
CLINICAL HISTORY: pain Two views of the chest. COMPARISON: None FINDINGS: Normal heart and mediastinal contours. No consolidation. No pleural effusion or pneumothorax. No fracture identified. IMPRESSION: 1. No consolidation. This document has been electronically signed by: Maximus Hau MD on 07/27/2024 14:05:06
--- NOTE | ~2024-07-27 | US_ITS ---
CLINICAL HISTORY: pain and swelling Venous duplex ultrasound bilateral lower extremity COMPARISON: None FINDINGS: The visualized deep veins are fully compressible with normal Doppler color flow and spectral tracings. No popliteal cyst. IMPRESSION: 1. Negative for bilateral lower extremity deep vein thrombosis. This document has been electronically signed by: Maximus Hau MD on 07/27/2024 14:26:53
[2024-07-27 13:19] VITALS: BP 146/74; PULSE 89; RESP 18; TEMP 36.8; O2SAT 96; BMI 51.4
--- NOTE | 2024-07-27 13:20 | ECG_ITS ---
Test Reason : PAIN Blood Pressure : */* mmHG Vent. Rate : 90 BPM Atrial Rate : 90 BPM P-R Int : 158 ms QRS Dur : 80 ms QT Int : 360 ms P-R-T Axes : 50 11 18 degrees QTcB Int : 440 ms Normal sinus rhythm Normal ECG When compared with ECG of 15-May-2023 09:44, No significant change was found Referred By: Yariel Escobar Electronically Signed By: TAD ROBERTSON
--- NOTE | 2024-07-27 13:20 | ED.GENADULT ---
HPI - General Adult General Chief complaint: General Medical Stated complaint: swelling feet and neck pain Time Seen by Provider: 07/27/24 15:58 Source: patient Limitations: no limitations History of Present Illness ED Provider: Hellen Zamora PA-C HPI narrative: 39y/o F with hx of morbid obesity, hyperlipidemia, hep C, migraine disorder, OCD, who presents with multiple complaints. Patient states she woke up with a stiff neck a day ago, pain worse with movement of the right side of the neck. The pain radiates upward to posterior scalp. Patient also has a frontal headache since the onset of her neck pain. Denies preceding injury, heavy lifting, new exercise. Denies recent cough or cold symptoms no fevers. Patient also complains of chest pain that began today. Pain is intermittent, described as a pinching sensation, behind the left breast. Denies shortness of breath, diaphoresis, nausea, vomiting. Lastly, the patient states her feet were swelling this morning. Denies prior DVT. Related Data Home Medications ?Medication ?Instructions ?Recorded ?Confirmed cholecalciferol (vitamin D3) 50 50 mcg PO DAILY 05/07/21 07/02/24 mcg (2,000 unit) tablet fluticasone propionate 230 2 puff PO BID 05/07/21 07/02/24 mcg-salmeterol 21 mcg/actuation HFA inhaler (Advair HFA) folic acid 800 mcg tablet 0.8 mg PO DAILY 05/07/21 07/02/24 multivitamin with folic acid 400 1 tab PO DAILY 05/07/21 07/02/24 mcg tablet (Daily-Meri (with folic acid)) sodium chloride 0.65 % nasal spray spray intranasal 05/07/21 07/02/24 aerosol (Saline Nasal) diphenhydramine HCl 25 mg capsule 25 mg PO TID PRN 05/17/21 07/02/24 (Banophen) biotin 5 mg capsule 5 mg PO DAILY 08/20/21 07/02/24 cetirizine 10 mg tablet 20 mg PO DAILY PRN allergies 08/20/21 07/02/24 fluticasone propionate 50 2 spray intranasal DAILY PRN 09/10/21 07/02/24 mcg/actuation nasal spray,suspension acetaminophen 325 mg tablet 325 mg PO Q4H PRN pain 12/27/22 04/01/25 ferrous gluconate 324 mg (38 mg 324 mg PO DAILY 08/29/23 07/02/24 iron) tablet Previous Rx's ?Medication ?Instructions ?Recorded albuterol sulfate 2.5 mg/3 mL 2.5 mg (3 mL) inhalation Q4-6H PRN 11/07/20 (0.083 %) solution for nebulization bronchospasm #15 mL albuterol sulfate 90 mcg/actuation 2 puff inhalation Q4-6H PRN 11/07/20 aerosol inhaler shortness of breath or wheezing #6.7 grams docusate sodium 100 mg capsule 100 mg PO .DAILY WITH FOOD 30 days 05/06/22 (Colace) #30 caps dicyclomine 20 mg tablet 20 mg PO QID 30 days #120 tabs 11/15/22 benzonatate 200 mg capsule 200 mg PO TID 7 days #21 caps 05/15/23 ibuprofen 100 mg/5 mL oral 600 mg (30 mL) PO Q6H PRN pain 30 07/04/23 suspension (Children's Ibuprofen) days #473 mL Lactobacillus rhamnosus GG 10 1 cap PO DAILY #30 caps 08/29/23 billion cell capsule (Culturelle) Proctosol HC 2.5 % topical cream 1 appl VT BID PRN hemorrhoids 08/29/23 perineal applicator #28.35 grams (hydrocortisone) famotidine 40 mg tablet 40 mg PO BID 90 days #180 tabs 08/29/23 cyclobenzaprine 5 mg tablet 5 mg PO TID PRN muscle spasm #14 09/15/23 tabs riboflavin (vitamin B2) 100 mg 400 mg (4 x 100 mg) PO DAILY 90 10/06/23 tablet (Vitamin B-2) days #360 tabs meclizine 25 mg tablet 25 mg PO TID PRN dizziness 30 days 12/19/23 #20 tabs ondansetron 4 mg disintegrating 4 mg PO Q6H PRN nausea and 12/19/23 tablet vomiting 30 days #20 tabs sumatriptan succinate 100 mg tablet 50 - 100 mg (0.5 - 1 x 100 mg) PO 07/02/24 .COMPLEX PRN migraine headache 30 days #12 tabs methocarbamol 750 mg tablet 750 mg PO Q8H PRN pain, moderate 07/27/24 #12 tabs Allergies Allergy/AdvReac Type Severity Reaction Status Date / Time peanut [PEANUT] Allergy Severe ANAPHYLAXIS Verified 07/27/24 13:24 clindamycin [CLINDAMYCIN] Allergy Mild UNKNOWN Verified 07/27/24 13:24 strawberry Allergy Mild Abdominal Verified 07/27/24 13:24 Pain amoxicillin [From Augmentin] Allergy Unknown Unknown Verified 07/27/24 13:24 cefaclor [From CECLOR] Allergy Unknown UNKNOWN Verified 07/27/24 13:24 clavulanic acid Allergy Unknown Unknown Verified 07/27/24 13:24 [From Augmentin] erythromycin base Allergy Unknown RASH Verified 07/27/24 13:24 [ERYTHROMYCIN BASE] lemon [Lemon] AdvReac Unknown VOMITING Verified 07/27/24 13:24 SEAFOOD Allergy Severe ANAPHYLAXIS Uncoded 07/02/24 11:38 berries Allergy Unknown Unknown Uncoded 07/02/24 11:38 Review of Systems Review of Systems: Yes all other systems are reviewed and are negative Constitutional: Constitutional: Denies fatigue, Denies fever(s) and Reports headache(s) ENT: Denies dizziness, Reports headache(s) and Reports neck pain Cardiovascular: Cardiovascular: Reports chest pain and Denies dyspnea Respiratory: Respiratory: Denies cough and Denies dyspnea Gastrointestinal: Gastrointestinal: Denies abdominal pain, Denies nausea and Denies vomiting Musculoskeletal: Musculoskeletal: Denies back pain, Reports neck pain, Denies numbness and Denies radiating pain into limb Neurologic: Denies dizziness, Reports headache(s) and Denies numbness Endocrine: Endocrine: Denies fatigue PMFSH Past Medical History Attestation statement: The following information was validated with the patient. Medical History Anxiety Asthma Surgical History Hx of tonsillectomy Family History Family History Father Heart disease Mother Migraine Heart disease Social History Social History Alcohol intake: never Patient Tobacco Use Status: Never used Tobacco Advance Directives: No Advance Directives Information Provided: No Physical Exam ED Vital Signs: Vital Signs - 24 hr 07/27/24 13:19 Temperature 98.3 F Pulse Rate 89 Respiratory Rate 18 Blood Pressure 146/74 H Pulse Oximetry 96 Oxygen Delivery Method Room Air BMI result Body Mass Index 51.4 Const Other: Alert, appears older than stated age Orientation/consciousness: patient oriented x3 Neck Neck: Yes full ROM and Yes no meningeal signs Resp Effort & Inspection: normal respiratory effort Cardio Other: Normal peripheral perfusion, trace pedal edema Skin Other: Warm dry no rash Neuro General: patient oriented x3, gait normal, no meningeal signs, no focal motor deficits and CN's II-XI intact bilaterally Extrem Other: Bilateral lower extremities are equal in size no overlying warmth or erythema Psych Other: Cooperative Course Course Course Narrative: RME, this is a rapid medical exam performed by Dagoberto Escobar please refer to primary provider for complete H&P- 39 year old female presents for evaluation of multiple complaints including headaches, intermittent chest pain, leg swelling for the last couple of days. Plan for labs, ekg, UA, chest x-ray Medical Decision Making Medical Decision Making [facility] Narrative: 39y/o F with hx of morbid obesity, hyperlipidemia, hep C, migraine disorder, OCD, who presents with multiple complaints. Patient states she woke up with a stiff neck a day ago, pain worse with movement of the right side of the neck. The pain radiates upward to posterior scalp. Patient also has a frontal headache since the onset of her neck pain. Denies preceding injury, heavy lifting, new exercise. Denies recent cough or cold symptoms no fevers. Patient also complains of chest pain that began today. Pain is intermittent, described as a pinching sensation, behind the left breast. Denies shortness of breath, diaphoresis, nausea, vomiting. Lastly, the patient states her feet were swelling this morning. Denies prior DVT. Problem: Morbid obesity, hyperlipidemia, OCD History: Per patient I have considered the following differential diagnoses: ACS, PE, DVT, cellulitis, migraine, tension headache, VAD, meningitis Plan: In regard to the chest discomfort, ACS was considered, however her presentation is highly atypical. Screening labs including a cardiac enzymes EKG and chest x-ray were obtained. In regard to the lower extremity swelling, I suspect she has dependent edema, her calves are equal in size, she has trace pedal edema, DVT studies were ordered from triage. There was no evidence of cellulitis. In regard to the headache, her headache today is not migrainous in nature, I suspect tension headache from her neck pain. There was no preceding injury to suggest VAD, she is also neurologically intact, she does not require advanced imaging of the way of CT angiograms. Also thought about meningitis, however she has no meningeal signs on exam. We will treat as musculoskeletal strain. Suddenly reviewed the following tests: Labs: No leukocytosis, no electrolyte abnormality, troponin negative, viral panel negative EKG: Normal sinus rhythm, rate of 90, no ischemic changes no ectopy QTC 440 Chest x-ray: FINDINGS: Normal heart and mediastinal contours. No consolidation. No pleural effusion or pneumothorax. No fracture identified. IMPRESSION: 1. No consolidation. Ultrasound bilateral lower extremities:FINDINGS: The visualized deep veins are fully compressible with normal Doppler color flow and spectral tracings. No popliteal cyst. IMPRESSION: 1. Negative for bilateral lower extremity deep vein thrombosis. Lab Data 07/27/24 14:21 07/27/24 14:21 Labs: Lab Results 07/27/24 Range/Units 14:21 WBC 9.9 (4.8-10.8) X10*3/uL RBC 4.50 (4.20-5.50) X10*6/uL Hgb 11.5 L (12.0-16.0) g/dl Hct 35.9 L (37.0-47.0) % MCV 79.8 L (80.0-98.0) fL MCH 25.6 L (27.0-33.0) pg MCHC 32.0 (31.0-35.0) g/dl RDW 15.8 (11.0-16.0) % Plt Count 215 (160-400) X10*3/uL MPV 10.2 (9.4-12.3) fL Immature Gran % (Auto) 0.3 (0.0-0.4) % Neut % (Auto) 68.6 (45-73) % Lymph % (Auto) 22.7 (20-40) % [place] % (Auto) 6.4 (2-11) % Eos % (Auto) 1.6 (0-4) % Baso % (Auto) 0.4 (0-2) % Lymph # (Auto) 2.2 (1.2-4.9) X10*3/uL [place] # (Auto) 0.6 (0.1-1.2) X10*3/uL Eos # (Auto) 0.2 (0.0-0.4) X10*3/uL Baso # (Auto) 0.0 (0.0-0.2) X10*3/uL Abs Immat Gran (auto) 0.03 (0.00-0.03) X10*3/uL Absolute Neuts (auto) 6.8 (2.0-8.3) x10*3/uL Absolute Nucleated RBC 0.000 (0.0-0.012) X10*3/uL Nucleated RBC % (auto) 0.0 (0.0-0.2) /100WBC Sodium 137 (135-145) mmol/L Potassium 4.0 (3.3-5.1) mmol/L Chloride 108 (96-108) mmol/L Carbon Dioxide 23 (22-29) mmol/L Anion Gap 10 L (12-20) BUN 7 L (9-16) mg/dL Creatinine 0.76 (0.5-1.4) mg/dL Estim Creat Clear Calc 140.1 Estimated GFR > 60 Random Glucose 88 (60-115) mg/dL Calcium 8.8 D (8.4-10.2) mg/dL Total Bilirubin 0.5 (0.0-1.0) mg/dL AST 37 H (5-31) U/L ALT 29 (0-31) U/L Alkaline Phosphatase 69 (39-117) U/L Troponin I High Sens < 2.7 (<3.5-17.0) ng/L B-Natriuretic Peptide < 10 (<100) pg/mL Total Protein 6.6 (6.5-8.0) g/dL Albumin 3.6 (3.5-5.0) g/dL Lipase 9 (8-78) U/L Influenza Type A (PCR) NEGATIVE (Negative) Influenza Type B (PCR) NEGATIVE (Negative) RSV RNA Qual (PCR) NEGATIVE (Negative) SARS-CoV-2 RNA (RT-PCR) NEGATIVE (Negative) Discharge Plan Discharge Clinical Impression: Chest pain, Dependent edema, Cervical strain Patient Disposition: Home, Self-Care Instructions: Cervical Strain (ED), Leg Edema (ED), Noncardiac Chest Pain (ED) Additional Instructions: In regard to your chest pain, this is not cardiac in origin. Screening labs including a cardiac enzymes were negative, there were no concerning changes on the EKG, the chest x-ray is clear. In regard to your lower extremity swelling, there was no evidence of clot formation in the legs on our ultrasound, you have what is called dependent edema. See home care instructions. Exercise and weight loss are instrumental in alleviating swelling. You should be wearing compression stockings while ambulating throughout the day, then elevate the legs above the heart while resting. In regard to the neck pain, continue to use [id number] ibuprofen 600 mg taken every 6 hours with food, for additional discomfort you can use the methocarbamol, this is the muscle relaxant. To note this medication will cause drowsiness do not drive or operate machinery while taking this medication. Follow up with your primary care provider as needed. Prescriptions: New methocarbamol 750 mg tablet 750 mg PO Q8H PRN (Reason: pain, moderate) Qty: 12 0RF No Action docusate sodium [Colace] 100 mg capsule 100 mg PO .DAILY WITH FOOD 30 Days Qty: 30 6RF riboflavin (vitamin B2) [Vitamin B-2] 100 mg tablet 400 mg PO DAILY 90 Days Qty: 360 3RF albuterol sulfate 2.5 mg /3 mL (0.083 %) solution for nebulization 2.5 mg inhalation Q4-6H PRN (Reason: bronchospasm) Qty: 15 0RF albuterol sulfate 90 mcg/actuation HFA aerosol inhaler 2 puff inhalation Q4-6H PRN (Reason: shortness of breath or wheezing) Qty: 6.7 0RF benzonatate 200 mg capsule 200 mg PO TID 7 Days Qty: 21 0RF cyclobenzaprine 5 mg tablet 5 mg PO TID PRN (Reason: muscle spasm) Qty: 14 0RF diphenhydramine HCl [Banophen] 25 mg capsule 25 mg PO TID PRN biotin 5 mg capsule 5 mg PO DAILY cetirizine 10 mg tablet 20 mg PO DAILY PRN (Reason: allergies) fluticasone propionate 50 mcg/actuation spray,suspension 2 spray intranasal DAILY PRN acetaminophen 325 mg tablet 325 mg PO Q4H PRN (Reason: pain) dicyclomine 20 mg tablet 20 mg PO QID 30 Days Qty: 120 1RF cholecalciferol (vitamin D3) 50 mcg (2,000 unit) tablet 50 mcg PO DAILY Advair HFA 230-21 mcg/actuation HFA aerosol inhaler 2 puff PO BID Saline Nasal 0.65 % aerosol,spray intranasal folic acid 800 mcg tablet 0.8 mg PO DAILY multivitamin with folic acid [Daily-Meri (with folic acid)] 400 mcg tablet 1 tab PO DAILY ibuprofen [Children's Ibuprofen] 100 mg/5 mL suspension 600 mg PO Q6H PRN (Reason: pain) 30 Days Qty: 473 3RF Rx Instructions: Grape flavor (d/t maurice allergy) ferrous gluconate 324 mg (38 mg iron) tablet 324 mg PO DAILY Culturelle 10 billion cell capsule 1 cap PO DAILY Qty: 30 6RF famotidine 40 mg tablet 40 mg PO BID 90 Days Qty: 180 1RF hydrocortisone [Proctosol HC] 2.5 % cream with perineal applicator 1 appl VT BID PRN (Reason: hemorrhoids) Qty: 28.35 3RF ondansetron 4 mg tablet,disintegrating 4 mg PO Q6H PRN (Reason: nausea and vomiting) 30 Days Qty: 20 3RF meclizine 25 mg tablet 25 mg PO TID PRN (Reason: dizziness) 30 Days Qty: 20 3RF sumatriptan succinate 100 mg tablet 50 - 100 mg PO .COMPLEX PRN (Reason: migraine headache) 30 Days Qty: 12 6RF Rx Instructions: 50 - 100 mg orally at onset of headache, may repeat in 2 hrs PRN; max 2 tabs per day or 4 tabs/week (may take with Ibuprofen) Print Language: Citizen Of [place]
[2024-07-27 14:43] LABS: MANUAL DIFF FLAG NO
[2024-07-27 14:44] LABS: Basophils Percent Auto 0.4 % (0-2); Eosinophils Absolute Auto 0.2 X10*3/uL (0.0-0.4); Eosinophils Percent Auto 1.6 % (0-4); Hematocrit 35.9 % (37.0-47.0); Hemoglobin 11.5 g/dl (12.0-16.0); Imm Gran Abs Auto 0.03 X10*3/uL (0.00-0.03); Imm Gran Pct Auto 0.3 % (0.0-0.4); Lymphocytes Absolute Auto 2.2 X10*3/uL (1.2-4.9); Lymphocytes Percent Auto 22.7 % (20-40); Mean Corpuscular Hemoglobin 25.6 pg (27.0-33.0); Mean Corpuscular Volume 79.8 fL (80.0-98.0); Mean Platelet Volume 10.2 fL (9.4-12.3); Monocytes Absolute Auto 0.6 X10*3/uL (0.1-1.2); Monocytes Percent Auto 6.4 % (2-11); Neutrophils Absolute Auto 6.8 x10*3/uL (2.0-8.3); Neutrophils Percent Auto 68.6 % (45-73); Platelet Count 215 X10*3/uL (160-400); Red Cell Distribution Width 15.8 % (11.0-16.0); White Blood Count 9.9 X10*3/uL (4.8-10.8)
--- OUTSIDE RECORDS SUMMARY | 2024-07-27 14:45 | XMS_ITS | Encounter Summary ---
Author Organization [facility] Address [address] [place] [address] Care Team Providers Care Marketing Programs Manager Name Role Phone Judy Bearden MD Primary Care Provider UnaRae De La Rosa DO Primary Care Pro vider Unavailable Chuck Cervantes MD Primary Care Provider Unavailab Erika Herrera MD Primary Care Provider [phone] Hollie Nicholas MD Primary Care Provider Unavai Karin Maldonado MD Primary Care Provider [phone] Amy Block DNP Unavailable [phone] Carlee Marcelo MD Unavailable [phone] Encounter Details Date Type Department Care Team Description 08/16/2014 Night Triage Doc Medical Records [address] [place] [address] Abstract, Provider Social History Tobacco Use Types Packs/Day Years Used Date Smoking Tobacco: Never Smokeless Tobacco: Never Alcohol Use Standard Drinks/Week Comments No 0 (1 standard drink = 0.6 oz pur e alcohol) Intimate Partner Violence Answer Date R ecorded Within the last year, have y ou been afraid of your partner or ex-partner? No 06/25/2020 Within the last year, have y ou been humiliated or emotionally abused in other ways by your partner or ex-partner? No Within the last year, have y ou been kicked, hit, slapped, or otherwise physically hurt by your partner or ex-partner? No 06/25/2020 Within the last year, have y ou been raped or forced to have any kind of sexual activity by your partner or ex-partner? No 06/25/2020 Sex Assigned at Date Recorded Female 04/29/2021 9:[address] Job Start Date Occupation Industry Not on file Not on file Not on file documented as of this encounter Plan of Treatment Not on file documented as of this encounter Visit Diagnoses Not on filedocumented in this encounter Care Teams Marketing Programs Manager Relationship Specialty Start Date End Date Judy Bearden MD PCP - General Internal Medicine 06/02/14 11/19/14 Rae Boss DO PCP - General Internal Medicine 11/20/14 08/19/20 Chuck Cervantes MD PCP - General Internal Medicine 08/20/20 11/22/20 Erika Burciaga MD [address] [place] [address] PCP - General Internal Medicine 11/23/20 03/28/21 Hollie Nicholas MD [address] [place] [address] PCP - General Internal Medicine 03/29/21 11/07/21 Karin Clemente MD [address] [place] [address] PCP - General Internal Medicine 11/08/21 Amy Block DNP [address] [place] [address] Specialist Nurse Practitioner Family 10/11/23 Carlee Marcelo MD [address] [place] [address] Specialist Cardiology 10/11/23 documented as of this encounter
--- OUTSIDE RECORDS SUMMARY | 2024-07-27 14:45 | XMS_ITS | Encounter Summary ---
Author Organization [facility] Address [address] [place] [address] Care Team Providers Care Transformation Architect Name Role Phone Erika Burciaga MD Primary Care Provider [phone] Hollie Nicholas MD Primary Care Provider Karin Vyas MD Primary Care Provider [phone] Amy Block DNP Unavailable [phone] Carlee Marcelo MD Unavailable [phone] Reason for Visit * Reason Comments E-prescribe Rx Request Encounter Details Date Type Department Care Team Description 12/30/2020 Refill Adult Medicine [facility] [address] [place] [address] Kuldip Orr MD [facility] [place] [address] E-prescribe Rx Request Social History Tobacco Use Types Packs/Day Years [...] file Not on file Not on file COVID-19 Exposure Response Date Recorded In the last month, have you been in contact with someone who was confirmed or suspected to have Coronavirus / COVID-19? No / Unsure 12/29/2020 11:59 AM EDT documented as of this encounter Miscellaneous Notes * Telephone Encounter - Lindsay Snell M.A. - 12/30/2020 1:51 PM EDT Last office visit 11/19/20 with Judy Aranda Pt had Dr Cervantes as PCP but upcoming appt was canceled and pt had to choose another pcp. documented in this encounter Plan of Treatment Not on file documented as of this encounter Visit Diagnoses Not on filedocumented in this encounter Care Teams Transformation Architect Relationship Specialty Start Date End Date Erika Burciaga MD [address] [place] [address] PCP - General Internal Medicine 11/23/20 03/28/21 Hollie Nicholas MD [address] [place], [place] [id number] PCP - General Internal Medicine 03/29/21 11/07/21 Karin Clemente MD [address] [place] [address] PCP - General Internal Medicine 11/08/21 Amy Block DNP [address] [place] [address] Specialist Nurse Practitioner Family 10/11/23 Carlee Marcelo MD [address] [place] [address] Specialist Cardiology 10/11/23 documented as of this encounter
--- OUTSIDE RECORDS SUMMARY | 2024-07-27 14:45 | XMS_ITS | Encounter Summary ---
Author Organization [facility] Address [address] [place] [address] Care Team Providers Care Liberal Arts And Humanities Chair Name Role Phone Chuck Cervantes MD Primary Care Provider Unavailab Erika Herrera MD Primary Care Provider [phone] Hollie Nicholas MD Primary Care Provider Karin Vyas MD Primary Care Provider [phone] Amy Block DNP Unavailable [phone] Carlee Marcelo MD Unavailable [phone] Reason for Visit * Reason Onset Date Comments TEST RESULTS 11/20/2020 Encounter Details Date Type Department Care Team Description 11/20/2020 Telephone Adult [address] [id number] Judy Watson PA-C [address] [place] [address] [phone] TEST RESULTS Social History Tobacco Use Types Packs/Day Years [...] have Coronavirus / COVID-19? No / Unsure 11/19/2020 1:21 PM EDT documented as of this encounter Miscellaneous Notes * Telephone Encounter - Sachi Cheung M.A. - 11/20/2020 1:37 PM EDT Pt advised. * Telephone Encounter - Devon Villalobos PA-C - 11/20/2020 11:28 AM EDT Xrays looked good without any rib injury, chest xray was clear * Telephone Encounter - Karen Lynne - 11/20/2020 9:24 AM EDT Inform patient: ANY URGENT OR ABNORMAL RESULTS WIILL RESULT IN A CALL BACK TO THE PATIENT SUZETTE. Type of test: chest xray Date test was performed: 11/19/2020 Where was the test performed: [facility] Who ordered this test?: judy watson Is the doctor here today?: YES Can the message wait until the doctor returns?: NO IF PATIENT'S PCP IS NOT IN INSTRUCT PATIENT THAT THEY WILL RECEIVE A CALL BACK WHEN THE PCP IS IN THE OFFICE NEXT. documented in this encounter Plan of Treatment Not on file documented as of this encounter Visit Diagnoses Not on filedocumented in this encounter Care Teams Liberal Arts And Humanities Chair Relationship Specialty Start Date End Date Chuck Cervantes MD PCP - General Internal Medicine 08/20/20 11/22/20 Erika Burciaga MD [address] [place] [address] PCP - General Internal Medicine 11/23/20 03/28/21 Hollie Nicholas MD [address] [place], [place] [phone] PCP - General Internal Medicine 03/29/21 11/07/21 Karin Clemente MD [address] [place] [address] PCP - General Internal Medicine 11/08/21 Amy Block DNP [address] [place] [address] 86248 Specialist Nurse Practitioner Family 10/11/23 Carlee Marcelo MD [address] [place] [address] 59264 Specialist Cardiology 10/11/23 documented as of this encounter
--- OUTSIDE RECORDS SUMMARY | 2024-07-27 14:45 | XMS_ITS | Encounter Summary ---
Author Organization [facility] Address [address] [place] [address] Care Team Providers Care Siphon Operator Name Role Phone Karin Clemente MD Primary Care Provider [phone] Amy Block DNP Unavailable [phone] Carlee Marcelo MD Unavailable [phone] Reason for Visit * Reason Onset Date Comments Faxed Refill 01/17/2024 Encounter Details Date Type Department Care Team Description 01/17/2024 Refill Adult Medicine [address] [phone] Karin Clemente MD [address] [place] [address] [phone] Faxed Refill Social History Tobacco Use Types Packs/Day Years Used Date Smoking Tobacco: Never Passive Smoke Exposure: Past Smokeless Tobacco: Never Alcohol Use Standard Drinks/Week [...] on file documented as of this encounter Miscellaneous Notes * Telephone Encounter - Lindsay Snell M.A. - 01/17/2024 1:54 PM EDT Last office visit 12/12/23 Next office visit 01/30/24 * Telephone Encounter - Sully Jackson - 01/17/2024 9:21 AM EDT Patient would like script to be: E-PRESCRIBED/FAXED TO PHARMACY WHEN WAS THE PATIENT'S LAST APPOINTMENT IN ADULT MEDICINE? 12/12/23 WHEN WAS THE LAST TIME THE PATIENT SAW THEIR PCP? 06/22/23 Does patient have an upcoming appointment? Yes 01/30/24 (THE MEDICATION REQUESTED IS ON THE MED LIST ABOVE) All of the medications requested were on the CURRENT MEDS list Did you check the Pharmacy information above?: YES Patient wants: 90 -day supply Is this a mail order prescription request ? NO If the refill is from a FAXED refill request what is the RX # listed on the fax? N/A Patients current insurance carrier is: [facility] / Plan: [facility] / Product Type: MEDICAID RISK documented in this encounter Plan of Treatment Not on file documented as of this encounter Visit Diagnoses Not on filedocumented in this encounter Care Teams Siphon Operator Relationship Specialty Start Date End Date Karin Clemente MD [address] [place] [address] 9[address] PCP - General Internal Medicine 11/08/21 Amy Block DNP [address] [place] [address] 21488 Specialist Nurse Practitioner Family 10/11/23 Carlee Marcelo MD [address] [place] [address] 95099 Specialist Cardiology 10/11/23 documented as of this encounter
--- OUTSIDE RECORDS SUMMARY | 2024-07-27 14:45 | XMS_ITS | Encounter Summary ---
Author Organization [facility] Address [address] [place] [address] Care Team Providers Care Building Trades Instructor Name Role Phone Rae Boss DO Primary Care Pro vider Unavailable Chuck Cervantes MD Primary Care Provider Unavailab Erika Herrera MD Primary Care Provider [phone] Hollie Nicholas MD Primary Care Provider Karin Vyas MD Primary Care Provider [phone] Amy Block DNP Unavailable [phone] Carlee Marcelo MD Unavailable [phone] Encounter Details Date Type Department Care Team Description 06/19/2019 Orders Only Adult Medicine [address] [phone] Aura Guadarrama, ES Social History Tobacco Use Types Packs/Day Years [...] on filedocumented in this encounter Care Teams Building Trades Instructor Relationship Specialty Start Date End Date Rae Boss DO PCP - General Internal Medicine 11/20/14 08/19/20 Chuck Cervantes MD PCP - General Internal Medicine 08/20/20 11/22/20 Erika Burciaga MD [address] [place] [address] PCP - General Internal Medicine 11/23/20 03/28/21 Hollie Nicholas MD [address] [place] [address] PCP - General Internal Medicine 03/29/21 11/07/21 Karin Clemente MD [address] [place] [address] PCP - General Internal Medicine 11/08/21 Amy Block DNP [address] [place] [address] 96018 Specialist Nurse Practitioner Family 10/11/23 Carlee Marcelo MD [address] [place] [address] 46419 Specialist Cardiology 10/11/23 documented as of this encounter
--- OUTSIDE RECORDS SUMMARY | 2024-07-27 14:45 | XMS_ITS | Encounter Summary ---
Author Organization [facility] Address [address] [place] [address] Care Team Providers Care Energy Operations Vice President Name Role Phone Rae Boss DO Primary Care Pro vider Unavailable Chuck Cervantes MD Primary Care Provider Unavailab Erika Herrera MD Primary Care Provider [phone] Hollie Nicholas MD Primary Care Provider Karin Vyas MD Primary Care Provider [phone] Amy Block DNP Unavailable [phone] Carlee Marcelo MD Unavailable [phone] Reason for Visit * Reason Comments E-prescribe Rx Request Encounter Details Date Type Department Care Team Description 03/24/2018 Refill BRICK PITCHER - [address] [place] [address] Archana Ochoa CNM [address] [place] [id number] E-prescribe Rx Request Social History Tobacco Use [...] encounter Miscellaneous Notes * Telephone Encounter - Pallavi Delarosa M.A. - 03/28/2018 10:59 AM EST Spoke with pt about rx sent to for vitamin d * Telephone Encounter - Hue Veliz CNM - 03/28/2018 10:38 AM EST Renewed Vit D 2000 units; history of vit D defic. documented in this encounter Plan of Treatment Not on file documented as of this encounter Visit Diagnoses Not on filedocumented in this encounter Care Teams Energy Operations Vice President Relationship Specialty Start Date End Date Rae Boss DO PCP - General Internal Medicine 11/20/14 08/19/20 Chuck Cervantes MD PCP - General Internal Medicine 08/20/20 11/22/20 Erika Burciaga MD [address] [place] [address] 20[address] PCP - General Internal Medicine 11/23/20 03/28/21 Hollie Nicholas MD [address] [place] [address] PCP - General Internal Medicine 03/29/21 11/07/21 Karin Clemente MD [address] [place] [address] PCP - General Internal Medicine 11/08/21 Amy Block DNP [address] [place] [address] Specialist Nurse Practitioner Family 10/11/23 Carlee Marcelo MD [address] [place] [address] 49146 Specialist Cardiology 10/11/23 documented as of this encounter
--- OUTSIDE RECORDS SUMMARY | 2024-07-27 14:45 | XMS_ITS | Encounter Summary ---
Author Organization [facility] Address [address] [place] [address] Care Team Providers Care Glass Bead Maker Name Role Phone Rae Boss DO Primary Care Pro vider Unavailable Chuck Cervantes MD Primary Care Provider Unavailab Erika Herrera MD Primary Care Provider [phone] Hollie Nicholas MD Primary Care Provider Karin Vyas MD Primary Care Provider [phone] Amy Block DNP Unavailable [phone] Carlee Marcelo MD Unavailable [phone] Encounter Details Date Type Department Care Team Description 05/07/2019 Release of Information Medical Records [address] [place] [address] Abstract, Provider Social History Tobacco Use Types [...] on filedocumented in this encounter Care Teams Glass Bead Maker Relationship Specialty Start Date End Date Rae Boss DO PCP - General Internal Medicine 11/20/14 08/19/20 Chuck Cervantes MD PCP - General Internal Medicine 08/20/20 11/22/20 Erika Burciaga MD [address] [place] [address] PCP - General Internal Medicine 11/23/20 03/28/21 Hollie Nicholas MD [address] [place] [address] PCP - General Internal Medicine 03/29/21 11/07/21 Karin Clemente MD [address] [place], [place] [phone] PCP - General Internal Medicine 11/08/21 Amy Block DNP [address] [place] [address]18 Specialist Nurse Practitioner Family 10/11/23 Carlee Marcelo MD [address] [place] [address] 40344 Specialist Cardiology 10/11/23 documented as of this encounter
--- OUTSIDE RECORDS SUMMARY | 2024-07-27 14:45 | XMS_ITS | Encounter Summary ---
Author Organization [facility] Address [address] [place] [address] Care Team Providers Care Finisher Polisher Name Role Phone Rae Boss DO Primary Care Pro vider Unavailable Chuck Cervantes MD Primary Care Provider Unavailab Erika Herrera MD Primary Care Provider [phone] Hollie Nicholas MD Primary Care Provider Karin Vyas MD Primary Care Provider [phone] Amy Block DNP Unavailable [phone] Carlee Marcelo MD Unavailable [phone] Encounter Details Date Type Department Care Team Description 03/05/2015 Hand Coke Drawer Report Medical Records [address] [place] [address] Moy Dale MD Social History Tobacco Use Types Packs/Day Years [...] on filedocumented in this encounter Care Teams Finisher Polisher Relationship Specialty Start Date End Date Rae Boss DO PCP - General Internal Medicine 11/20/14 08/19/20 Chuck Cervantes MD PCP - General Internal Medicine 08/20/20 11/22/20 Erika Burciaga MD [address] [place] [address] PCP - General Internal Medicine 11/23/20 03/28/21 Hollie Nicholas MD [address] [place] [address] PCP - General Internal Medicine 03/29/21 11/07/21 Karin Clemente MD [address] [place] [address] PCP - General Internal Medicine 11/08/21 Amy Block DNP [address] [place] [address] 89886 Specialist Nurse Practitioner Family 10/11/23 Carlee Marcelo MD [address] [place] [address] 51891 Specialist Cardiology 10/11/23 documented as of this encounter
--- OUTSIDE RECORDS SUMMARY | 2024-07-27 14:45 | XMS_ITS | Encounter Summary ---
Author Organization [facility] Address [address] [place] [address] Care Team Providers Care Sales Manager Prearranged Funerals Name Role Phone Karin Clemente MD Primary Care Provider [phone] Amy Block DNP Unavailable [phone] Carlee Marcelo MD Unavailable [phone] Reason for Visit * Reason Comments E-prescribe Rx Request Encounter Details Date Type Department Care Team Description 01/02/2024 Refill Adult Medicine [address] [phone] Karin Clemente MD [address] [place] [address] [phone] E-prescribe Rx Request Social History Tobacco Use [...] encounter Miscellaneous Notes * Telephone Encounter - Tarsha White - 01/03/2024 7:58 AM EDT 07/10/23 last refill * Telephone Encounter - Princess Nation - 01/02/2024 11:30 AM EDT Patient would like script to [...] N/A Patients current insurance carrier is: Payor: [facility] F[facility] / Plan: [facility] / Product Type: MEDICAID RISK documented in this encounter Plan of Treatment Not on file documented as of this encounter Visit Diagnoses Diagnosis Dyshidrotic eczema Dyshidrosis documented in this encounter Care Teams Sales Manager Prearranged Funerals Relationship Specialty Start Date End Date Karin Clemente MD [address] [place] [address] PCP - General Internal Medicine 11/08/21 Amy Block DNP [address] [place] [address] 7[address]80 Specialist Nurse Practitioner Family 10/11/23 Carlee Marcelo MD [address] [place] [address]73 Specialist Cardiology 10/11/23 documented as of this encounter
--- OUTSIDE RECORDS SUMMARY | 2024-07-27 14:45 | XMS_ITS | Encounter Summary ---
Author Organization [facility] Address [address] [place] [address] Care Team Providers Care Visual Manager Name Role Phone Rae Boss DO Primary Care Pro vider Unavailable Chuck Cervantes MD Primary Care Provider Unavailab Erika Herrera MD Primary Care Provider [phone] Hollie Nicholas MD Primary Care Provider Karin Vyas MD Primary Care Provider [phone] Amy Block DNP Unavailable [phone] Carlee Marcelo MD Unavailable [phone] Reason for Visit * Reason Onset Date Comments TEST RESULTS 12/01/2017 Encounter Details Date Type Department Care Team Description 12/01/2017 Telephone Adult Medicine [address] [address] Rae Boss DO TEST RESULTS Social History Tobacco Use Types [...] encounter Miscellaneous Notes * Telephone Encounter - Mar Leung M.A. - 12/06/2017 4:13 PM EDT Pt aware she can stop iron and probiotic. * Telephone Encounter - Rae Parker DO - 12/06/2017 2:11 PM EDT Her iron levels are normal and she is not anemic. Ok to stop this supplement. Probiotic for gi health, also ok to stop * Telephone Encounter - Vicky Chu C.M.A. - 12/01/2017 11:[address] Cruz patient is aware of results. Patient states she has stopped taking her Iron and probiotic because they were too expensive and she is questioning if you think she should continue with them. Patient is aware you are out of the office until next week * Telephone Encounter - ALFONSO Márquez - 12/01/2017 11:07 AM EDT All normal ALFONSO Márquez * Telephone Encounter - Vicky Chu C.M.A. - 12/01/2017 11:04 AM EDT Ada will you review labs in PCP absence? * Telephone Encounter - Karen Lynne - 12/01/2017 10:57 AM EDT Inform patient: ANY URGENT OR ABNORMAL RESULTS WIILL RESULT IN A CALL BACK TO THE PATIENT SUZETTE. Type of test: :labs Date test was performed: 11/28/2017 Where was the test performed: [facility] [place] Who ordered this test?: Rae Gay Is the doctor here today?: yes Can the message wait until the doctor returns?: NO IF PATIENT'S PCP IS NOT IN INSTRUCT PATIENT THAT THEY WILL RECEIVE A CALL BACK WHEN THE PCP IS IN THE OFFICE NEXT. documented in this encounter Plan of Treatment Not on file documented as of this encounter Visit Diagnoses Not on filedocumented in this encounter Care Teams Visual Manager Relationship Specialty Start Date End Date Rae Boss DO PCP - General Internal Medicine 11/20/14 08/19/20 Chuck Cervantes MD PCP - General Internal Medicine 08/20/20 11/22/20 Erika Burciaga MD [address] [place] [address] PCP - General Internal Medicine 11/23/20 03/28/21 Hollie Nicholas MD [address] [place] [address] PCP - General Internal Medicine 03/29/21 11/07/21 Karin Clemente MD [address] [place] [address]48 PCP - General Internal Medicine 11/08/21 Amy Block DNP [address] [place] [address]57 Specialist Nurse Practitioner Family 10/11/23 Carlee Marcelo MD [address] [place] [address] 19897 Specialist Cardiology 10/11/23 documented as of this encounter
--- OUTSIDE RECORDS SUMMARY | 2024-07-27 14:45 | XMS_ITS | Encounter Summary ---
Author Organization [facility] Address [address] [place] [address] Care Team Providers Care Rail Assembler Name Role Phone Karin Clemente MD Primary Care Provider [phone] Amy Block DNP Unavailable [phone] Carlee Marcelo MD Unavailable [phone] Encounter Details Date Type Department Care Team Description 01/25/2024 Pt. Non Urgent Medical Question Adult Medicine [address] [phone] Alphonso Zimmerman, JUVENILE DETENTION OFFICER [address] [place], [place] [phone] Social History Tobacco Use Types Packs/Day Years [...] * Telephone Encounter - Tarsha White - 01/25/2024 11:06 AM EDTFrom: Krsytal Deforge To: Yulisa Zimmerman Sent: 01/25/2024 9:19 AM EDT Subject: Test results Yes I would like to know if my test results in for my covid RSV and flu if you can get back to me on that that would be great thank you documented in this encounter Plan of Treatment Not on file documented as of this encounter Visit Diagnoses Not on filedocumented in this encounter Care Teams Rail Assembler Relationship Specialty Start Date End Date Karin Clemente MD [address] [place] [address] PCP - General Internal Medicine 11/08/21 Amy Block DNP [address] [place] [address] Specialist Nurse Practitioner Family 10/11/23 Carlee Marcelo MD [address] [place] [address] 8[address]31 Specialist Cardiology 10/11/23 documented as of this encounter
--- OUTSIDE RECORDS SUMMARY | 2024-07-27 14:45 | XMS_ITS | Encounter Summary ---
Author Organization [facility] Address [address] [place] [address] Care Team Providers Care Chief Jailer Name Role Phone Rae Boss DO Primary Care Pro vider Unavailable Chuck Cervantes MD Primary Care Provider Unavailab Erika Herrera MD Primary Care Provider [phone] Hollie Nicholas MD Primary Care Provider Karin Vyas MD Primary Care Provider [phone] Amy Block DNP Unavailable [phone] Carlee Marcelo MD Unavailable [phone] Reason for Visit * Reason Onset Date Comments Blood In Stool 10/15/2015 Encounter Details Date Type Department Care Team Description 10/15/2015 Telephone Adult [address] [phone] Rae Boss DO Blood In Stool Social History Tobacco Use Types Packs/Day Years [...] encounter Miscellaneous Notes * Telephone Encounter - Rae Parker DO - 10/16/2015 11:38 AM EDT Thank you, i believe she has appointment with GI pending and can also call to see if they can get her in sooner * Telephone Encounter - Liliana José R.N. - 10/15/2015 4:37 PM EDT Pt has had problems with her stomach for months and has had blood in her stool, Pt has no chest pain or SOB, C/O nausea, but has been eating normally today, has had 3 Stools in the past 24 hours, no black stools , she had blood in The last 2 stools, C/O generalized abd pain , Rates pain as 4/10 , not increasing, nothing changes the pain, she has been active all day , , pt Is not feeling faint or light headed, denies any urinary symptoms, voiding QS, no blood in urine, pt is taking po with nl appetite, Denies fever ( has not taken temp) Pt will go to the ed if she has another stool, asking if bleeding stops does she need to be seen , she has had this in the past when she had lactose, last night she had sour cream , was not aware that was a milk product Advised home care following the abd pain Protocol. RN reinforced telephone consultation and advice.Reviewed with the patient the signs and symptoms to watch for that would require immediate attention. If symptoms change, worsen or increase in intensity, to call back immediately. * Telephone Encounter - Nikki Bosch - 10/15/2015 11:22 AM EDT Symptoms patient is presenting: when pt moved her bowels this morning she saw blood in them, she wants to know if she should come in to be seen or if nurse can advise her. She does have an appointment in 11/30/15 with gastro. Please call her back If pain or injury related was it due to an accident at work or from a motor vehicle accident? NO If yes, gather 3rd alliance party insurance information Date of accident/Injury: How long has patient had these symptoms?: today PCP: Rae Gay Payor: [employer] / Plan: [facility] MEDICA[facility] HMO $0 [employer] / Product Type: HMO [id number] documented in this encounter Plan of Treatment Not on file documented as of this encounter Visit Diagnoses Not on filedocumented in this encounter Care Teams Chief Jailer Relationship Specialty Start Date End Date Rae Boss DO PCP - General Internal Medicine 11/20/14 08/19/20 Chuck Cervantes MD PCP - General Internal Medicine 08/20/20 11/22/20 Erika Burciaga MD [address] [place] [address] PCP - General Internal Medicine 11/23/20 03/28/21 Hollie Nicholas MD [address] [place], [place] [phone] PCP - General Internal Medicine 03/29/21 11/07/21 Karin Clemente MD [address] [place] [address]186 PCP - General Internal Medicine 11/08/21 Amy Block DNP [address] [place] [address] Specialist Nurse Practitioner Family 10/11/23 Carlee Marcelo MD [address] [place] [address]14 Specialist Cardiology 10/11/23 documented as of this encounter
--- OUTSIDE RECORDS SUMMARY | 2024-07-27 14:45 | XMS_ITS | Encounter Summary ---
Author Organization [facility] Address [address] [place] [address] Care Team Providers Care Fire Tender Name Role Phone Rae Boss DO Primary Care Pro vider Unavailable Chuck Cervantes MD Primary Care Provider Unavailab Erika Herrera MD Primary Care Provider [phone] Hollie Nicholas MD Primary Care Provider Karin Vyas MD Primary Care Provider [phone] Amy Block DNP Unavailable [phone] Carlee Marcelo MD Unavailable [phone] Reason for Visit * Reason Onset Date Comments pain, chest 01/08/2019 Encounter Details Date Type Department Care Team Description 01/08/2019 Telephone Adult Medicine [address] [id number] Rae Boss DO pain, chest Social History Tobacco Use Types Packs/Day Years [...] encounter Miscellaneous Notes * Telephone Encounter - Liliana José R.N. - 01/08/2019 8:51 AM EDT Pt has had chest pain for 2 days , she is congested , pain . Denies any recent trauma Pt C/O chest pain which is unchanged with deep breath and movement, pt denies any SOB, is able to speak in full sentences and has no audible wheezing/stridor, pt has not noted any increase in pain with activity, pain is constant, located in the left side of the chest with no radiation, pt denies any rapid or irregular HR , nausea but no V/D or fever, has not had a cough, pt c/o weakness no dizziness, has no leg pain or swelling. Pt has family cardiac hx, no personal hx of HTN or high cholesterol and does not smoke Appointment with bayron noel tomorrow at 9:30 Advised home care following the Chest pain Protocol. RN reinforced telephone consultation and advice. Reviewed with the patient the signs and symptoms to watch for that would require immediate attention. If symptoms change, worsen or increase in intensity, to call back immediately. * Telephone Encounter - Marge Beauchamp - 01/08/2019 8:47 AM EDT Symptoms patient is having: chest pain If pain or injury related was it due to an accident at work or from a motor vehicle accident? NO If yes, gather 3rd libertarian insurance information Date of accident/Injury: How long has patient had these symptoms?:4 pm on 01/07/19 one day PCP: Rae Gay Payor: [employer] FFS / Plan[facility] / Product Type: MEDICAID RISK documented in this encounter Plan of Treatment Not on file documented as of this encounter Visit Diagnoses Not on filedocumented in this encounter Care Teams Fire Tender Relationship Specialty Start Date End Date Rae Boss DO PCP - General Internal Medicine 11/20/14 08/19/20 Chuck Cervantes MD PCP - General Internal Medicine 08/20/20 11/22/20 Erika Burciaga MD [address] [place], [place] [id number] PCP - General Internal Medicine 11/23/20 03/28/21 Hollie Nicholas MD [address] [place], [place] [id number] PCP - General Internal Medicine 03/29/21 11/07/21 Karin Clemente MD [address] [place] [address] PCP - General Internal Medicine 11/08/21 Amy Block DNP [address] [place] [phone] Specialist Nurse Practitioner Family 10/11/23 Carlee Marcelo MD [address] [place] [address] Specialist Cardiology 10/11/23 documented as of this encounter
--- OUTSIDE RECORDS SUMMARY | 2024-07-27 14:45 | XMS_ITS | Encounter Summary ---
Author Organization [facility] Address [address] [place] [address] Care Team Providers Care Orthopedic Rn Name Role Phone Rae Boss DO Primary Care Pro vider Unavailable Chuck Cervantes MD Primary Care Provider Unavailab Erika Herrera MD Primary Care Provider [phone] Hollie Nicholas MD Primary Care Provider Karin Vyas MD Primary Care Provider [phone] Amy Block DNP Unavailable [phone] Carlee Marcelo MD Unavailable [phone] Encounter Details Date Type Department Care Team Description 08/22/2017 Sales Representative Publications Report Medical Records [address] [place] [address] Rehab.Patrick Social History Tobacco Use Types Packs/Day Years [...] on filedocumented in this encounter Care Teams Orthopedic Rn Relationship Specialty Start Date End Date Rae Boss DO PCP - General Internal Medicine 11/20/14 08/19/20 Chuck Cervantes MD PCP - General Internal Medicine 08/20/20 11/22/20 Erika Burciaga MD [address] [place] [address] PCP - General Internal Medicine 11/23/20 03/28/21 Hollie Nicholas MD [address] [place], [place] [phone] PCP - General Internal Medicine 03/29/21 11/07/21 Karin Clemente MD [address] [place] [id number] PCP - General Internal Medicine 11/08/21 Amy Block DNP [address] [place] [address] Specialist Nurse Practitioner Family 10/11/23 Carlee Marcelo MD [address] [place] [address] Specialist Cardiology 10/11/23 documented as of this encounter
--- OUTSIDE RECORDS SUMMARY | 2024-07-27 14:45 | XMS_ITS | Encounter Summary ---
Author Organization [facility] Address [address] [place] [address] Care Team Providers Care Relay Dispatcher Name Role Phone Erika Burciaga MD Primary Care Provider [phone] Hollie Nicholas MD Primary Care Provider Karin Vyas MD Primary Care Provider [phone] Amy Block DNP Unavailable [phone] Carlee Marcelo MD Unavailable [phone] Reason for Visit * Reason Onset Date Comments Letter 12/21/2020 Encounter Details Date Type Department Care Team Description 12/21/2020 Telephone Pulmonology - [place] [address] [facility] [address] [place] [address] Shelly Ruiz APRN [address] [facility] [address] [place] [address] Letter Social History Tobacco Use Types Packs/Day Years [...] have Coronavirus / COVID-19? No / Unsure 12/03/2020 8:13 AM EDT documented as of this encounter Miscellaneous Notes * Telephone Encounter - Lynn Romero - 12/21/2020 9:52 AM EDT Patient calling she needs a letter to clear her up for dental work. advice documented in this encounter Plan of Treatment Not on file documented as of this encounter Visit Diagnoses Not on filedocumented in this encounter Care Teams Relay Dispatcher Relationship Specialty Start Date End Date Erika Burciaga MD [address] [place] [address] PCP - General Internal Medicine 11/23/20 03/28/21 Hollie Nicholas MD [address] [place] [address] PCP - General Internal Medicine 03/29/21 11/07/21 Karin Clemente MD [address] [place] [address] PCP - General Internal Medicine 11/08/21 Amy Block DNP [address] [place], [place] [phone] Specialist Nurse Practitioner Family 10/11/23 Carlee Marcelo MD [address] [place], [place] [phone] Specialist Cardiology 10/11/23 documented as of this encounter
--- OUTSIDE RECORDS SUMMARY | 2024-07-27 14:45 | XMS_ITS | Encounter Summary ---
Author Organization [facility] Address [address] [place] [address] Care Team Providers Care Ophthalmic Dispenser Name Role Phone Rae Boss DO Primary Care Pro vider Unavailable Chuck Cervantes MD Primary Care Provider Unavailab Erika Herrera MD Primary Care Provider [phone] Hollie Nicholas MD Primary Care Provider Karin Vyas MD Primary Care Provider [phone] Amy Block DNP Unavailable [phone] Carlee Marcelo MD Unavailable [phone] Encounter Details Date Type Department Care Team Description 05/15/2017 Plate Mounter Report Medical Records [address] [place] [address] Abstract, Provider Social History Tobacco Use Types [...] on filedocumented in this encounter Care Teams Ophthalmic Dispenser Relationship Specialty Start Date End Date Rae Boss DO PCP - General Internal Medicine 11/20/14 08/19/20 Chuck Cervantes MD PCP - General Internal Medicine 08/20/20 11/22/20 Erika Burciaga MD [address] [place] [address] PCP - General Internal Medicine 11/23/20 03/28/21 Hollie Nicholas MD [address] [place], [place] [phone] PCP - General Internal Medicine 03/29/21 11/07/21 Karin Clemente MD [address] [place] [address] PCP - General Internal Medicine 11/08/21 Amy Block DNP [address] [place] [address] Specialist Nurse Practitioner Family 10/11/23 Carlee Marcelo MD [address] [place] [address] Specialist Cardiology 10/11/23 documented as of this encounter
--- OUTSIDE RECORDS SUMMARY | 2024-07-27 14:45 | XMS_ITS | Encounter Summary ---
Author Organization [facility] Address [address] [place] [address] Care Team Providers Care Preanalytics Team Lead Name Role Phone Karin Clemente MD Primary Care Provider [phone] Amy Block DNP Unavailable [phone] Carlee Marcelo MD Unavailable [phone] Reason for Visit * Reason Onset Date Comments Advice 07/12/2022 Encounter Details Date Type Department Care Team Description 07/12/2022 Telephone Bariatric Surgery - [place] [address] [facility] [address] [place] [address] Daisy Dan MD [address] [facility] [address] [place] [address] Advice Social History Tobacco Use Types Packs/Day Years [...] Exposure Response Date Recorded In the last 10 days, have yo u been in contact with someone who was confirmed or suspected to have Coronavirus/COVID-19? No / Unsure 07/15/2022 9:37 AM EDT documented as of this encounter Miscellaneous Notes * Telephone Encounter - Ada Balderas - 07/12/2022 2:49 PM EDT I had to reschedule patients appt due to Dr Dan having an emergent surgery. Patient will call back to reschedule but was hoping to hear from Dr Dan she can be reached at [phone]. The appt was to decide if the patient needed to have the gallbladder removed. documented in this encounter Plan of Treatment Not on file documented as of this encounter Visit Diagnoses Not on filedocumented in this encounter Care Teams Preanalytics Team Lead Relationship Specialty Start Date End Date Karin Clemente MD [address] [place] [address] PCP - General Internal Medicine 11/08/21 Amy Block DNP [address] [place] [address] Specialist Nurse Practitioner Family 10/11/23 Carlee Marcelo MD [address] [place] [address] Specialist Cardiology 10/11/23 documented as of this encounter
--- OUTSIDE RECORDS SUMMARY | 2024-07-27 14:45 | XMS_ITS | Clinical Summary ---
Author Organization [facility] Address [address] [place] [address] Care Team Providers Care Thread Grinder Tool Name Role Phone Karin Clemente MD Primary Care Provider [phone] Amy Block DNP Unavailable [phone] Carlee Marcelo MD Unavailable [phone] Allergies Active Allergy Reactions Severity Noted Date Comments Augmentin Numbness, tingling o r swelling of the lips, tongue or mouth High 11/30/2021 Cefaclor 12/09/2014 Clindamycin Itching/Pruritus 05/01/2016 Lemon Flavor 05/27/2016 Macrolides 02/11/2014 Methylisothiazolinone 01/27/2017 Peanuts 03/14/2016 TANK HOUSE OPERATOR HELPER TESTED POSITIVE Seafood 03/14/2016 TESTED POSITIVE BY TANK HOUSE OPERATOR HELPER [place] 12/03/2020 Medications Medication Sig Dispensed Refills Start Date End Date Status Meclizine HCl 25 MG Tab TAKE 1 TABLET BY MOUTH THREE TIMES DAILY NEEDED FOR DIZZINESS 90 Tablet 1 10/31/2022 Active Riboflavin (Vitamin B-2) 100 MG Tab TAKE 4 TABLETS BY MOUTH ONCE DAILY 0 09/20/2022 Active famotidine (Pepcid) 40 MG tablet Take 1 Tablet by mouth daily. 0 12/01/2022 Active sodium chloride (OCEAN) 0.65 % nasal sprayIndications :Allergic rhinitis, unspecified seasonality, unspecified trigger 1 [place] by Nasal route 4 times daily as needed for Congestion. 30 mL 0 08/16/2023 Active Cholecalciferol (Vitamin D) 50 MCG (1999 UT) Tab Take 1 Tablet by mouth daily. 90 Tablet 1 08/30/2023 Active azelastine (ASTELIN) 0.1 % nasal sprayIndications :Allergic rhinitis, unspecified seasonality, unspecified trigger 2 Sprays by Each Nare route 2 times daily. Use in each nostril as directed 30 mL 2 12/12/2023 01/06/20 25 Active ondansetron (ZOFRAN) 4 MG tablet Take 1 Tablet by mouth every 8 hours as needed for Nausea for up to 3 days. 7 Tablet 0 12/12/2023 Active meloxicam (MOBIC) 15 MG tablet Take 1 Tablet by mouth daily for 60 days. 30 Tablet 1 12/19/2023 Active clotrimazole (LOTRIMIN) 1 % cream Apply to skin and toenails daily for 12 weeks 45 g 3 12/19/2023 Active folic acid (FOLVITE) 800 MCG tablet Take 1 tablet by mouth once daily 90 Tablet 1 12/25/2023 Active Biotin Maximum Strength 5000 MCG CapIndications:D yshidrotic eczema Take 1 capsule by mouth once daily 90 Capsule 1 01/03/2024 Active Multiple Vitamin (Tab-A-Ximena) Tab Take 1 Tablet by mouth daily. 90 Tablet 0 01/08/2024 Active ibuprofen (ADVIL,MOTRIN) 100 MG/5ML suspension Take 20 mL by mouth every 8 hours as needed for Pain. 1800 mL 0 01/17/2024 Active acetaminophen (TYLENOL) 325 MG tablet TAKE 1 TABLET BY MOUTH EVERY 4 HOURS NEEDED FOR PAIN 360 Tablet 0 01/25/2024 Active diphenhydrAMINE (BENADRYL) 25 MG capsuleIndicatio ns:H/O multiple allergies TAKE 1 CAPSULE BY MOUTH EVERY 6 HOURS NEEDED FOR ALLERGIES. (TAKE 1 TO 2 CAPSULES WITH ALLERGY REACTIONS). 25 Capsule 0 01/26/2024 Active cetirizine (ZYRTEC) 10 MG tabletIndication s:Allergic rhinitis, unspecified seasonality, unspecified trigger TAKE 2 TABLETS BY MOUTH ONCE DAILY NEEDED FOR ALLERGIES OR RHINITIS 180 Tablet 0 01/26/2024 Active EPINEPHrine 0.3 MG/0.3ML Solution Auto-injector INJECT CONTENTS OF 1 PEN INTRAMUSCULARLY NEEDED FOR ALLERGIC REACTION 2 Each 1 01/26/2024 Active albuterol (PROVENTIL) (2.5 MG/3ML) 0.083% nebulizer solutionIndicati ons:Severe asthma without complication, unspecified whether persistent,Acute cough Take 1 Vial by nebulization every 6 hours as needed for Wheezing, Shortness of Breath or Cough. 360 mL 5 01/26/2024 Active fluticasone-salm eterol (Advair HFA) 230-21 MCG/ACT inhalerIndicatio ns:Severe asthma without complication, unspecified whether persistent Inhale 2 Puffs into the lungs 2 times daily. This medication has inhaler steroid: Rinse mouth with water and expectorate after each dose to prevent oral/esophageal candidiasis or fungal infection. 36 g 5 01/26/2024 Active fluticasone (Flonase Allergy Relief) 50 MCG/ACT nasal sprayIndications :Allergic rhinitis, unspecified seasonality, unspecified trigger 2 Sprays by Each Nare route daily. 48 g 5 01/26/2024 Active Ventolin HFA 108 (90 Base) MCG/ACT Aero Soln Inhale 2 Puffs into the lungs 4 times daily as needed for Wheezing or Shortness of Breath. 18 g 6 01/26/2024 Active Multiple Vitamins-Mineral s (TAB-A-XIMENA) Tab Take 1 Tab by mouth daily. 30 Tab 2 04/22/2020 01/30/20 24 Discontinu ed(reorder ) Active Problems Problem Noted Date Family history of cancer 07/06/2023 Overview: 2018 [facility] Cancer screen was neg colon, neg BRCA1/2 Hiatal hernia 08/18/2022 Degenerative disc disease, lumbar 2021 Snoring 12/29/2020 Overview: 12/2020 Home Sleep Study did not reveal sleep apnea or nocturnal hypoxia. Lipoma of torso 04/19/2019 Gallstones 04/19/2019 Last Assessment & Plan: Explained that gallstone disease could worsen in and I would recommend she consider seeing a general surgeon to discuss management prior to trying to conceive. She will consider. Gastroesophageal reflux disease 04/19/19 20 Migraine 12/12/2018 Atypical chest pain 07/28/2017 Overview: Normal stress test July 2017; Holter with [...] rhinitis 03/10/2015 Hepatitis C antibody test positive 02/12 Overview: 06/2012 History of splenomegaly 02/11/2014 Overview: CT abd 06/2012 showed mild splenomegaly, unchanged when compared to studies in 12/2010 and 02/2007 Anxiety 02/11/2014 Overview: Follows with [facility] behavioral health Counselor: Vanessa Tidwell - weekly OCD (obsessive compulsive disorder) 02/01 Overview: Sees [facility]- Victoria Tidwell Morbid obesity with BMI of 45.0-49.9, ad ult 02/11/2014 Last Assessment & Plan: I counseled Zina that I would strongly recommend she consider continuing to work on her weight loss before attempting to conceive. She was counseled that morbid obesity increased risk of diabetes, hypertension, heart disease, loss, and in . She was counseled it would be best to get to normal BMI. She will consider this. ADHD (attention deficit hyperactivity di sorder) 02/11/2014 Dyshidrotic eczema 02/11/2014 Chronic headaches 02/11/2014 Overview: Previously saw Dr. Garcia in Neurology, thought to have pseudotumor cerebri - never had LP Normal CTH 2009 Tenosynovitis, de Quervain 02/11/2014 Overview: right Kidney stones Moderate asthma Overview: 05/18/2017 ,nebs prn. H/O Helicobacter infection Overview: 01/2011 Chronic gastric ulcer with obstruction Resolved Problems Problem Noted Date Resolved Date Personal history of COVID-19 06/24/2020 COVID-19 virus infection 03/24/2020 021 Family planning counseling 08/30/201910/11 Last Assessment & Plan: I counseled her re: progestin only options given her history of migraine and desire to avoid E2 cotnaining OCP due to risk of blood clots. She was most interested in progestin only pill so she can decide easily when she would like to stop and try to conceive. I counseled her re: correct use and no placebo week. Rx sent to pharmacy. Vitamin D deficiency 07/03/2017 03/28/2018 Family history of breast cancer 07/03/2017 02/14/2018 Family history of ovarian cancer 07/03/2017 02/14/2018 Family history of colon cancer 07/03/2017 1 04/16/2017 Vitamin D insufficiency 12/01/2015 03/29/20 19 Overview: Vitamin D = 28 Helicobacter pylori gastritis 02/12/2014 Overview: 01/2011 Anemia 02/11/2014 03/29/2019 History of abnormal cervical Pap smear 2 04/29/2021 Overview: 07/09/09, ASCUS of cervix with negative high risk HPV 2019- Neg/Neg Immunizations Name Administration Dates Next Due Tdap 09/30/2020,06/04/2020 Family History Medical History Relation Name Comments CA Breast Aunt mom CAD Father [place] Father stroke- no furt her paternal family information heart attack Father CA Prostate Maternal Grandfather Diabetes Maternal Grandmother obesity , osteoporosis [place] Mother , morbi d obesity Liver Disease Uncle maternal uncle Relation Name Status Comments Aunt mom Alive Father Alive Maternal Grandfather Maternal Grandmother Mother Paternal Grandfather Uncle Social History Tobacco Use Types Packs/Day Years Used Date Smoking Tobacco: Never Passive Smoke Exposure: Past Smokeless Tobacco: Never Tobacco Cessation:Counseling Given: Not [...] file Not on file Not on file Last Filed Vital Signs Vital Sign Reading Time Taken Comments Blood Pressure 116/84 01/30/2024 1:01 PM EDT Pulse 88 01/30/2024 1:01 PM EDT Temperature 37 ??C (98.6 ??F) 01/30/2024 1:01 PM EDT Respiratory Rate 16 01/30/2024 1:01 PM EDT Oxygen Saturation 98% 12/12/2023 1:08 PM EDT Inhaled Oxygen Concentration - - Weight 136.1 kg (300 lb) 01/30/2024 1:01 PM EDT Height 165.1 cm (5' 5 ) 01/30/2024 1:01 PM EDT Body Mass Index 49.92 01/30/2024 1:01 PM EDT Plan of Treatment Health Maintenance Due Date Last Done Comments Covid-19 Vaccine (#1) 1984 MAMMOGRAM 2024 03/31/2022 BMI CHECK/ADVISE 04/03/2024 12/12/2023, 01/2024, 12/07/2023, Additional history exists DEPRESSION SCREENING/FOLLOWUP 04/03/2024, 11/19/2020, 03/04/2020, Additional history exists SOCIAL NEEDS SCREENING 04/03/2024 , 04/28/2022, 06/28/2021, Additional history exists INFLUENZA (Season Ended) 2024 BASELINE HEALTH EXAM 40-64 08/08/202508/08, 08/09/2023, 02/21/2022, Additional history exists CERVICAL CANCER SCREENING 07/06/20262023, 06/28/2022, 11/14/2018, Additional history exists CHOLESTEROL SCREENING 08/08/2028 08/09/2023 , 12/28/2021, 04/29/2021, Additional history exists DTAP/TDAP/TD (4 - Td or Tdap) 09/30/2030, 06/04/2020, 07/03/2017 (Refused) PNEUMOCOCCAL VACCINE FOR HIG H RISK PATIENTS (#2) 2049 07/03/2017 (Refused) Care Teams Thread Grinder Tool Relationship Specialty Start Date End Date Karin Clemente MD [address] [place] [address] PCP - General Internal Medicine 11/08/21 Amy Block DNP [address] [place] [address] Specialist Nurse Practitioner Family 10/11/23 Carlee Marcelo MD [address] [place] [address] Specialist Cardiology 10/11/23
--- OUTSIDE RECORDS SUMMARY | 2024-07-27 14:45 | XMS_ITS | Encounter Summary ---
Author Organization [facility] Address [address] [place] [address] Care Team Providers Care Pathology Laboratory Aides Teacher Name Role Phone Rae Boss DO Primary Care Pro vider Unavailable Chuck Cervantes MD Primary Care Provider Unavailab Erika Herrera MD Primary Care Provider [phone] Hollie Nicholas MD Primary Care Provider Karin Vyas MD Primary Care Provider [phone] Amy Block DNP Unavailable [phone] Carlee Marcelo MD Unavailable [phone] Encounter Details Date Type Department Care Team Description 07/04/2017 Orders Only Adult Medicine [address] [id number] Rae Boss DO Social History Tobacco Use Types Packs/Day Years [...] on filedocumented in this encounter Care Teams Pathology Laboratory Aides Teacher Relationship Specialty Start Date End Date Rae Boss DO PCP - General Internal Medicine 11/20/14 08/19/20 Chuck Cervantes MD PCP - General Internal Medicine 08/20/20 11/22/20 Erika Burciaga MD [address] [place] [address] PCP - General Internal Medicine 11/23/20 03/28/21 Hollie Nicholas MD [address] [place] [address] PCP - General Internal Medicine 03/29/21 11/07/21 Karin Clemente MD [address] [place] [address] PCP - General Internal Medicine 11/08/21 Amy Block DNP [address] [place] [address] Specialist Nurse Practitioner Family 10/11/23 Carlee Marcelo MD [address] [place] [address] Specialist Cardiology 10/11/23 documented as of this encounter
--- OUTSIDE RECORDS SUMMARY | 2024-07-27 14:45 | XMS_ITS | Encounter Summary ---
Author Organization [facility] Address [address] [place] [address] Care Team Providers Care Burner Tender Name Role Phone Rae Boss DO Primary Care Pro vider Unavailable Chuck Cervantes MD Primary Care Provider Unavailab Erika Herrera MD Primary Care Provider [phone] Hollie Nicholas MD Primary Care Provider Karin Vyas MD Primary Care Provider [phone] Amy Block DNP Unavailable [phone] Carlee Marcelo MD Unavailable [phone] Reason for Visit * Reason Onset Date Comments medication problems 06/19/2019 Encounter Details Date Type Department Care Team Description 06/19/2019 Telephone Adult Medicine [address] [phone] Rae Boss DO medication problems Social History Tobacco Use Types Packs/Day Years [...] Telephone Encounter - Liliana José R.N. - 06/19/2019 1:02 PM EDT Please review , pt states she cannot take Augmentin , just plain amoxil * Telephone Encounter - Kasey Mcwilliams - 06/19/2019 12:00 PM EDT Who is calling? The patient Name of the medication amoxicillin-clavulanate (AUGMENTIN) 875-125 MG per tablet What is the specific problem or interaction? Patient states she has an allergic reaction to this medication. It makes her lip go numb. States she can take Amoxicillin or PCN only. If the patient is having a problem with taking the med - how long has the problem been going on? N/A documented in this encounter Plan of Treatment Not on file documented as of this encounter Visit Diagnoses Not on filedocumented in this encounter Care Teams Burner Tender Relationship Specialty Start Date End Date Rae Boss DO PCP - General Internal Medicine 11/20/14 08/19/20 Chuck Cervantes MD PCP - General Internal Medicine 08/20/20 11/22/20 Erika Burciaga MD [address] [place] [address] PCP - General Internal Medicine 11/23/20 03/28/21 Hollie Nicholas MD [address] [place] [address] PCP - General Internal Medicine 03/29/21 11/07/21 Karin Clemente MD [address] [place] [address] [id number] PCP - General Internal Medicine 11/08/21 Amy Block DNP [address] [place] [address] Specialist Nurse Practitioner Family 10/11/23 Carlee Marcelo MD [address] [place] [address] [phone] Specialist Cardiology 10/11/23 documented as of this encounter
--- OUTSIDE RECORDS SUMMARY | 2024-07-27 14:45 | XMS_ITS | Encounter Summary ---
Author Organization [facility] Address [address] [place] [address] Care Team Providers Care Portable Router Operator Name Role Phone Karin Clemente MD Primary Care Provider [phone] Amy Block DNP Unavailable [phone] Carlee Marcelo MD Unavailable [phone] Encounter Details Date Type Department Care Team Description 08/26/2022 Pt. Non Urgent Medical Question Adult Medicine [address] [phone] Karin Clemente MD [address] [place] [address] [id number] Social History Tobacco Use Types Packs/Day Years [...] suspected to have Coronavirus/COVID-19? No / Unsure 08/16/2022 8:50 AM EDT documented as of this encounter Plan of Treatment Not on file documented as of this encounter Visit Diagnoses Not on filedocumented in this encounter Care Teams Portable Router Operator Relationship Specialty Start Date End Date Karin Clemente MD [address] [place] [address] PCP - General Internal Medicine 11/08/21 Amy Block DNP [address] [place] [address] 43158 Specialist Nurse Practitioner Family 10/11/23 Carlee Marcelo MD [address] [place] [address] 87668 Specialist Cardiology 10/11/23 documented as of this encounter
--- OUTSIDE RECORDS SUMMARY | 2024-07-27 14:45 | XMS_ITS | Encounter Summary ---
Author Organization [facility] Address [address] [place] [address] Care Team Providers Care Geek Squad Agent Name Role Phone Rae Boss DO Primary Care Pro vider Unavailable Chuck Cervantes MD Primary Care Provider Unavailab Erika Herrera MD Primary Care Provider [phone] Hollie Nicholas MD Primary Care Provider Karin Vyas MD Primary Care Provider [phone] Amy Block DNP Unavailable [phone] Carlee Marcelo MD Unavailable [phone] Reason for Visit * Reason Comments E-prescribe Rx Request Encounter Details Date Type Department Care Team Description 04/07/2019 Refill Adult Medicine [address] [id number] Kelley Tracy PA-C E-prescribe Rx Request Social History Tobacco Use [...] Telephone Encounter - Lindsay Snell M.A. - 04/08/2019 11:07 AM EST Last office visit 03/29/19 Pt with dx of asthma documented in this encounter Plan of Treatment Not on file documented as of this encounter Visit Diagnoses Not on filedocumented in this encounter Care Teams Geek Squad Agent Relationship Specialty Start Date End Date Rae Boss DO PCP - General Internal Medicine 11/20/14 08/19/20 Chuck Cervantes MD PCP - General Internal Medicine 08/20/20 11/22/20 Erika Burciaga MD [address] [place] [address] PCP - General Internal Medicine 11/23/20 03/28/21 Hollie Nicholas MD [address] [place] [address] PCP - General Internal Medicine 03/29/21 11/07/21 Karin Clemente MD [address] [place] [address] PCP - General Internal Medicine 11/08/21 Amy Block DNP [address] [place] [address] 23276 Specialist Nurse Practitioner Family 10/11/23 Carlee Marcelo MD [address] [place] [address]14 Specialist Cardiology 10/11/23 documented as of this encounter
--- OUTSIDE RECORDS SUMMARY | 2024-07-27 14:45 | XMS_ITS | Encounter Summary ---
Author Organization [facility] Address [address] [place] [address] Care Team Providers Care Inspector Printed Circuit Boards Name Role Phone Rae Boss DO Primary Care Pro vider Unavailable Chuck Cervantes MD Primary Care Provider Unavailab Erika Herrera MD Primary Care Provider [phone] Hollie Nicholas MD Primary Care Provider Karin Vyas MD Primary Care Provider [phone] Amy Block DNP Unavailable [phone] Carlee Marcelo MD Unavailable [phone] Reason for Visit * Reason Onset Date Comments REFERRAL 04/25/2019 Encounter Details Date Type Department Care Team Description 04/25/2019 Telephone Podiatry - [address] [phone] Senia Hood, MARIO REFERRAL Social History Tobacco Use Types Packs/Day Years [...] encounter Miscellaneous Notes * Telephone Encounter - Kasey Cole - 04/25/2019 8:54 AM EST Please use proper smart text and forward back to referrals * Telephone Encounter - Fidencio Black - 04/25/2019 8:49 AM EST Request for a referral to a Ade Specialist for a patient with a Ade PCP. If patient does NOT have a Ade PCP they must obtain a referral from their PCP before being seen-do not submit request to Referrals department-contact patient. Specialty patient is being referred to: Physical Therapy Name of Specialist patient is seeing: [facility] Reason/diagnosis for visit: Left lateral foot pain Date of appoinment: n/a If retro, date referral needs to start: 04/26/2019 Rae Gay Payor: [employer] FFS / Plan: [employer] / Product Type: MEDICAID RISK Patient has existing referral for 2x/week. Requesting 3x/week documented in this encounter Plan of Treatment Not on file documented as of this encounter Visit Diagnoses Not on filedocumented in this encounter Care Teams Inspector Printed Circuit Boards Relationship Specialty Start Date End Date Rae Boss DO PCP - General Internal Medicine 11/20/14 08/19/20 Chuck Cervantes MD PCP - General Internal Medicine 08/20/20 11/22/20 Erika Burciaga MD [address] [place] [address] PCP - General Internal Medicine 11/23/20 03/28/21 Hollie Nicholas MD [address] [place] [address]909 PCP - General Internal Medicine 03/29/21 11/07/21 Karin Clemente MD [address] [place] [address] PCP - General Internal Medicine 11/08/21 Amy Block DNP [address] [place] [address] Specialist Nurse Practitioner Family 10/11/23 Carlee Marcelo MD [address] [place] [address]21 Specialist Cardiology 10/11/23 documented as of this encounter
--- OUTSIDE RECORDS SUMMARY | 2024-07-27 14:45 | XMS_ITS | Encounter Summary ---
Author Organization [facility] Address [address] [place] [address] Care Team Providers Care Mapping Pilot Name Role Phone Karin Clemente MD Primary Care Provider [phone] Amy Block DNP Unavailable [phone] Carlee Marcelo MD Unavailable [phone] Encounter Details Date Type Department Care Team Description 09/09/2022 Restaurant Crew Report Medical Records [address] [place] [address] Rissa Gilbert Social History Tobacco Use Types Packs/Day Years [...] Recorded In the last 10 days, have chris u been in contact with someone who was confirmed or suspected to have Coronavirus/COVID-19? No / Unsure 08/16/2022 8:50 AM EDT documented as of this encounter Plan of Treatment Not on file documented as of this encounter Visit Diagnoses Not on filedocumented in this encounter Care Teams Mapping Pilot Relationship Specialty Start Date End Date Karin Clemente MD [address] [place] [address] PCP - General Internal Medicine 11/08/21 Amy Block DNP [address] [place] [address]24 Specialist Nurse Practitioner Family 10/11/23 Carlee Marcelo MD [address] [place] [address] 95261 Specialist Cardiology 10/11/23 documented as of this encounter
--- OUTSIDE RECORDS SUMMARY | 2024-07-27 14:45 | XMS_ITS | Encounter Summary ---
Author Organization [facility] Address [address] [place] [address] Care Team Providers Care Punchboard Stuffer Name Role Phone Rae Boss DO Primary Care Pro vider Unavailable Chuck Cervantes MD Primary Care Provider Unavailab Erika Herrera MD Primary Care Provider [phone] Hollie Nicholas MD Primary Care Provider Karin Vyas MD Primary Care Provider [phone] Amy Block DNP Unavailable [phone] Carlee Marcelo MD Unavailable [phone] Encounter Details Date Type Department Care Team Description 03/16/2018 Community Specialist Report Medical Records [address] [place] [address] Charmaine Carter Social History Tobacco Use Types Packs/Day Years [...] on filedocumented in this encounter Care Teams Punchboard Stuffer Relationship Specialty Start Date End Date Rae Boss DO PCP - General Internal Medicine 11/20/14 08/19/20 Chuck Cervantes MD PCP - General Internal Medicine 08/20/20 11/22/20 Erika Burciaga MD [address] [place] [address] PCP - General Internal Medicine 11/23/20 03/28/21 Hollie Nicholas MD [address] [place], [place] [phone] PCP - General Internal Medicine 03/29/21 11/07/21 Karin Clemente MD [address] [place] [address] PCP - General Internal Medicine 11/08/21 Amy Block DNP [address] [place] [address] Specialist Nurse Practitioner Family 10/11/23 Carlee Marcelo MD [address] [place] [address] Specialist Cardiology 10/11/23 documented as of this encounter
--- OUTSIDE RECORDS SUMMARY | 2024-07-27 14:45 | XMS_ITS | Data Portability ---
Author Organization [place] [facility], [facility] Address [address] [place] [phone] Care Team Providers Care Buckle Assembler Name Role Phone ALIE PINO Referring Provider Assessment No assessment recorded. Plan of Treatment Reminders Order Date Submit Date Provider Last Modified By Organization Details Last Modified Time Details Appointments None record ed. Lab None record ed. Referral None record ed. Procedures None record ed. Surgeries None record ed. Imaging None record ed. Medication Orders None record ed. Patient TargetsNo targets recorded. Patient InstructionsNo instructions recorded. Reason for Referral None Reported. Results Created Date Observation Date Name Description Value Unit Range Abnormal Flag Note LastModifiedBy Organization Detail LastModifiedTime 07/03/19 25 audio gram No observ ation record ed. BARCODE Not Available 2024 16:49:28 Result Notes None recorded. 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 290093973 Active 2014 Nasal polyp, unspecifi ed; Note: Date Diagnosed : 03/05/2015 4:09 PM (J33.9) Not Available [facility] 4 02:44:35 Deviated nasal septum 888221668 Active 2014 Deviated nasal septum; Note: Date Diagnosed : 03/05/2015 4:09 PM (J34.2) Not Available [facility] 4 02:44:37 Impacted cerumen of bilateral ears 40308693797 42642 Active 2022 Impacted cerumen, bilateral ; Note: Date Diagnosed : 3 1:53 PM (H61.23) Not Available [facility] 4 02:44:27 Allergic rhinitis 38314499 Active 2015 Perennial allergic rhinitis; Note: Date Diagnosed : 04/17/2015 11:43 AM (J30.89) Not Available [facility] 4 02:44:28 Benign paroxysma l positiona l vertigo 574053794 Active 2022 Benign paroxysma l vertigo, right ear; Note: Date Diagnosed : 3 1:52 PM (H81.11) Not Available [facility] 4 02:44:34 Bilateral tinnitus 62522038404 02 Active 2024 MADYSON CHRISTENSEN [place], [facility] [address] [place] [address],[place] [address], [facility] [place], [phone] , [facility] 5 16:09:05 Referred otalgia of right ear 37716431139 99167 Active 2024 CALIXTO MELGAR MD [address] [place] [address], [facility] [place], [phone] , [facility] 5 16:37:36 Problem Notes None recorded. Procedures Surgical History Date Name Laterality Status Provider Name and Address Organization Details Recorded Time 07/02/2024 Air & Speech Audio with Tymps (59774, 21374 & 80328) completed MADYSON CHRISTENSEN [place], [facility] [address] [place] [address],[place] [address], [place], [phone], [facility] 07/02/2024 16:09:18 Imaging Results Imaging Date Name Status LastModified by Organiz ation Details LastModified Time 07/02/2024 audiogram completed BARCODE Information no t available 07/02/2024 16:49:28 Procedure Notes None recorded. Medical Equipment None Reported. Allergies No known drug allergies Medications Name Sig Start Date Stop Date Status Note LastModified by Organization Details LastModified Time Vitamin B-2 100 mg tablet TAKE 4 TABLETS BY MOUTH ONCE DAILY active Not Available Not Available No t Available nystatin 100,000 unit/mL oral suspensio n SWISH & SWALLOW 1 TEASPOON FUL (5 MLS) 4 TIMES A DAY FOR 10 DAYS 07/02 completed Not Available Not Available Not Available acetamino phen 325 mg tablet TAKE 1 TABLET BY MOUTH EVERY 4 HOURS NEEDED FOR PAIN active Not Available Not Available No t Available prednison e 10 mg tablet TAKE 4 TABLETS BY MOUTH ONCE DAILY FOR 3 DAYS, AND THEN TAKE 3 TABLETS ONCE DAILY FOR 3 DAYS, AND THEN TAKE 2 TABLETS ONCE DAILY FOR 3 DAYS, AND THEN TAKE 1 TABLET ONCE DAILY FOR 3 DAYS 07/02 completed Not Available Not Available Not Available albuterol sulfate 2.5 mg/3 mL (0.083 %) solution for nebulizat ion USE 1 VIAL IN NEBULIZE R EVERY 6 HOURS NEEDED FOR WHEEZING , SHORTNES S OF BREATH, OR COUGH active Not Available Not Available No t Available cetirizin e 10 mg tablet TAKE 2 TABLETS BY MOUTH ONCE DAILY NEEDED FOR ALLERGIE S OR RHINITIS active Not Available Not Available No t Available biotin 5 mg capsule TAKE 1 CAPSULE BY MOUTH ONCE DAILY active Not Available Not Available No t Available fluconazo le 150 mg tablet TAKE 1 TABLET BY MOUTH A ONE TIME DOSE 07/02 completed Not Available Not Available Not Available benzonata te 200 mg capsule TAKE 1 CAPSULE BY MOUTH 2 OR 3 TIMES DAILY FOR COUGH FOR 10 DAYS active Not Available Not Available No t Available meloxicam 15 mg tablet TAKE 1 TABLET BY MOUTH ONCE DAILY active Not Available Not Available No t Available ondansetr on HCl 4 mg tablet TAKE 1 TABLET BY MOUTH EVERY 8 HOURS NEEDED FOR NAUSEA FOR UP TO 3 DAYS 07/02 completed Not Available Not Available Not Available famotidin e 40 mg tablet TAKE 1 TABLET BY MOUTH TWICE DAILY active Not Available Not Available No t Available prednison e 20 mg tablet TAKE 2 TABLETS BY MOUTH DAILY FOR 5 DAYS 07/02 completed Not Available Not Available Not Available doxycycli ne monohydra te 100 mg tablet TAKE 1 TABLET BY MOUTH TWICE DAILY FOR 7 DAYS 07/02 completed Not Available Not Available Not Available oxycodone -acetamin ophen 5 mg-325 mg tablet 07/02 completed Medicati on ID: [id number] D uration Value: 3 Brand Name: oxycodon e-acetam inophen Send Method: E-Prescr ibed Sub s Allowed: subs OK Speci al Instruct ion: TAKE 1 TABLET BY MOUTH EVERY 12 HOURS NEEDED FOR PAIN Med icationG enericNa me: oxycodon e-acetam inophen Not Available Not Available Not Available meclizine 25 mg tablet TAKE 1 TABLET BY MOUTH THREE TIMES DAILY NEEDED FOR DIZZINES S active Not Available Not Available No t Available benzonata te 100 mg capsule TAKE 1 CAPSULE BY MOUTH THREE TIMES DAILY NEEDED FOR COUGH FOR UP TO 7 DAYS 07/02 completed Not Available Not Available Not Available Ear Drops (carbamid e peroxide) 6.5 % 07/02 completed Medicati on ID: [id number] D uration Value: 5 Brand Name: Ear Drops (carbami de peroxide ) Send Method: E-Prescr ibed Sub s Allowed: subs OK Speci al Instruct ion: PLACE 5 DROPS IN THE IN BOTH EARS TWICE A DAY Medi cationGe nericNam e: Ear Drops (carbami de peroxide ) Not Available Not Available Not Available Banophen 25 mg capsule TAKE 1 CAPSULE BY MOUTH EVERY 6 HOURS NEEDED FOR ALLERGIE S. (TAKE 1 TO 2 CAPSULES WITH ALLERGY REACTION S). 07/02 completed Not Available Not Available Not Available azelastin e 137 mcg (0.1 %) nasal spray USE 2 SPRAY(S) IN EACH NOSTRIL TWICE DAILY DIRECTED active Not Available Not Available No t Available ibuprofen 600 mg tablet 07/02 completed Medicati on ID: [id number] D uration Value: 10 Brand Name: ibuprofe n Send Method: E-Prescr ibed Sub s Allowed: subs OK Speci al Instruct ion: TAKE 1 TABLET BY MOUTH EVERY 8 HOURS NEEDED FOR PAIN Med icationG enericNa me: ibuprofe n Not Available Not Available Not Available levofloxa josh 500 mg tablet 07/02 completed Medicati on ID: [id number] D uration Value: 7 Brand Name: levoflox acin Sen d Method: E-Prescr ibed Sub s Allowed: subs OK Speci al Instruct ion: TAKE 1 TABLET BY MOUTH EVERY DAY FOR 7 DAYS Med icationG enericNa me: levoflox acin Not Available Not Available Not Available ondansetr on 4 mg disintegr ating tablet DISSOLVE 1 TABLET IN MOUTH EVERY 6 HOURS NEEDED FOR NAUSEA AND VOMITING 07/02 completed Not Available Not Available Not Available fluticaso ne propionat e 50 mcg/actua tion nasal spray,ngozi pension USE 2 SPRAY(S) IN EACH NOSTRIL ONCE DAILY active Not Available Not Available No t Available clotrimaz ole 1 % topical cream APPLY 1 APPLICAT ION OF CREAM TOPICALL Y ONCE DAILY TO AFFECTED AREA/SKI N FOLDS active Not Available Not Available No t Available doxycycli ne hyclate 100 mg tablet TAKE 1 TABLET BY MOUTH TWICE A DAY FOR 5 DAYS 07/02 completed Not Available Not Available Not Available folic acid 800 mcg tablet TAKE 1 TABLET BY MOUTH ONCE DAILY active Not Available Not Available No t Available naproxen 500 mg tablet TAKE 1 TABLET BY MOUTH TWICE DAILY WITH MEALS FOR 10 DAYS 07/02 completed Not Available Not Available Not Available Ventolin HFA 90 mcg/actua tion aerosol inhaler INHALE 2 PUFFS BY MOUTH 4 TIMES DAILY NEEDED FOR WHEEZING OR SHORTNES S OF BREATH active Not Available Not Available No t Available Children' s Ibuprofen 100 mg/5 mL oral suspensio n TAKE 20 ML BY MOUTH EVERY 8 HOURS NEEDED FOR MILD PAIN active Not Available Not Available No t Available cyclobenz aprine 5 mg tablet TAKE 1 TABLET BY MOUTH THREE TIMES DAILY NEEDED FOR MUSCLE SPASM 07/02 completed Not Available Not Available Not Available Tri-Previ fem (28) 0.18 mg(7)/0.2 15 mg(7)/0.2 5 mg(7)-35 mcg tablet 07/02 completed Medicati on ID: [id number] D uration Value: 28 Brand Name: Tri-Prev ifem (28) Sen d Method: E-Prescr ibed Sub s Allowed: subs OK Speci al Instruct ion: TAKE 1 TABLET BY MOUTH EVERY DAY Medi [facility] nericNam e: Tri-Prev ifem (28) Not Available Not Available Not Available Advair HFA 230 mcg-21 mcg/actua tion aerosol inhaler INHALE 2 PUFFS BY MOUTH TWICE DAILY. RINSE MOUTH WITH WATER AND SPIT AFTER EACH DOSE TO PREVENT ORAL/ESO PHAGEAL CANDIDIA SIS OR FUNGAL INFECTIO N active Not Available Not Available No t Available ferrous gluconate 324 mg (38 mg iron) tablet TAKE 1 TABLET BY MOUTH ONCE DAILY WITH BREAKFAS T 07/02 completed Not Available Not Available Not Available cholecalc iferol (vitamin D3) 50 mcg (2,000 unit) tablet TAKE 1 TABLET BY MOUTH ONCE DAILY active Not Available Not Available No t Available Banophen 50 mg capsule TAKE 1 CAPSULE BY MOUTH EVERY 6 HOURS NEEDED FOR ALLERGIE S. TAKE 1 TO 2 TABLETS WITH ALLERGY REACTION S. active Not Available Not Available No t Available Proctosol HC 2.5 % topical cream perineal applicato r APPLY 1 APPLICAT ION OF CREAM RECTALLY TWICE DAILY NEEDED FOR HEMORRHO IDS 07/02 completed Not Available Not Available Not Available Tab-A-Vit e 400 mcg tablet TAKE 1 TABLET BY MOUTH ONCE DAILY active Not Available Not Available No t Available Vitals Date Recorded Body height Body mass index (BMI) Body weight Provider Name and Address Organization Details Last Updated DateTime 07/02/2024 165.1 cm 53.3 kg/m2 791975.56 g Lindsay Freire [place] - [facility] 07/02/2024 16:21:17 Social History None recorded. Functional Status None recorded. Mental Status None recorded. Family History Nothing Reported. Medical History Condition Response Asthma Y GERD/Reflux Y Gynecological HistoryNo gynecological history recorded. Obstetrics History GPAL:G 0 P 0 0 0 0 Past Encounters Encounter ID Performer Location Encounter Start Date Encounter Closed Date Diagnosis/Indication Diagnosis SNOMED-CT Code Diagnosis ICD10 Code Diagnosis Note [id number] CALIXTO MELGAR MD [facility] [address] [address] 07/02/2024 14:57:13 07/02/2024 16:39:08 Bilateral tinnitus 2859598008 102 H93.13 Audiologic al evaluation results: Right ear: {{Normal* Normal through 2 kHz Mild M oderate Mo derately-s evere Paige re Profoun d}} {{hearing* hearing. sloping to a mild slopi ng to a moderate s loping to moderately severe slo ping to severe slo ping to profound f lat high frequency low frequency mid frequency cookie bite astorga curve}} {{with* se nsorineura l hearing loss with condu ctive hearing loss with mixed hearing loss with}} {{excellen t* good fa ir poor no measurable }} word recognitio n. Left ear: {{Normal* Normal through 2 kHz Mild M oderate Mo derately-s evere Paige re Profoun d}} {{hearing* hearing. sloping to a mild slopi ng to a moderate s loping to moderately severe slo ping to severe slo ping to profound f lat high frequency low frequency mid frequency cookie bite astorga curve}} {{with* se nsorineura l hearing loss with condu ctive hearing loss with mixed hearing loss with}} {{excellen t* good fa ir poor no measurable }} word recognitio n. Tympanomet ry: Right Ear:{{Type A* Type A with rounded peak Type A with double peak Type As Type As with rounded peak Type Ad Type C Type C, shallow & rounded peak Type B Type B with large volume Cou ld not maintain a hermetic seal}} Left Ear:{{Type A* Type A with rounded peak Type A with double peak Type As Type As with rounded peak Type Ad Type C Type C, shallow & rounded peak Type B Type B with large volume Cou ld not maintain a hermetic seal}} Referred o talgia of right ear [id number] 414498 H92.01 M26.621 M79.11 The patient complains of {{intermit tent* hydraulic billet maker dilip}} {{right-si ded* left- sided bila teral}} periauricu lar vibration sensation. Physical exam reveals no identifiab le source of these symptoms involving the auricle, external auditory canal, or tympanic membrane. Audiometri c testing and tympanomet ry are similarly unrevealin g. Furthermor e, examinatio n was positive for crepitus and tenderness of the {{right* l eft bilate ral}} jaw joint and verito-TMJ musculatur e. The patient's periauricu lar vibration sensation is most likely consistent with intermitte nt inflammati on of the jaw joint or spasm of the surroundin g musculatur e. This is likely exacerbate d by her missing teeth and overall poor dentition. I recommende d the patient use light massage, warm compresses and anti-infla mmatories for symptomati c management . Stressed chewing evenly on both sides of the mouth to keep from overworkin g the jaw joint. Use soft food diet as needed. Jaw Joint Program informatio n sheet was shared. If this treatment plan is ineffectiv e, recommend follow up with their dentist. Referral to physical therapist who specialize s in TMJ disorders {{could also be considered * was provided}} . Health Concerns Section Related Observation LastModified by Organization Detai ls LastModified Time None Recorded Concern Status LastModified by Organization Details LastModified Time None Recorded Advance Directives Directive None Recorded Payers Encounter Date Sequence Insurance Name Policy Number Policy Ayon Covered Member ID Ayon Member ID Guarantor Name 07/02/2024 1 [facility] (MEDICAID REPLACEMENT - HMO) [employer] Krsytal L Deforge [id number] Krsytal L Deforge Notes Date Note Type Note Provider Name and Address Organization Details Recorded Time 07/02/2024 text/html Patient with tendency to rapid and excessive cerumen accumulation who comes in today for reevaluation. In addition, she has been noticing intermittent episodes of tinnitus which will last for about a minute, then fade away. She notices possibly twice a week. Patient thinks her hearing is fine in general. Patient notices intermittent vibration sensation in the preauricular and infra-auricular regions. She does have a bad wisdom tooth that needs some work.Intermittent dizziness consistent with recurrent BPPV. I gave her referral slip to [facility] at her last visit with me back in March 2023 to use at her discretion. No recent sx. CALIXTO MELGAR MD [address] [place] [address], [place], [phone], [facility] - [facility] 07/02/2024 16:39:55 OBGyn Episode No OBEpisode recorded.
--- OUTSIDE RECORDS SUMMARY | 2024-07-27 14:45 | XMS_ITS | Encounter Summary ---
Author Organization [facility] Address [address] [place] [address] Care Team Providers Care Manual Equipment Mechanic Name Role Phone Rae Boss DO Primary Care Pro vider Unavailable Chuck Cervantes MD Primary Care Provider Unavailab Erika Herrera MD Primary Care Provider [phone] Hollie Nicholas MD Primary Care Provider Karin Vyas MD Primary Care Provider [phone] Amy Block DNP Unavailable [phone] Carlee Marcelo MD Unavailable [phone] Reason for Visit * Reason Onset Date Comments er follow up 05/25/2017 Encounter Details Date Type Department Care Team Description 05/25/2017 Telephone Adult Medicine [address] [id number] Rae Boss DO er follow up Social History Tobacco Use Types Packs/Day Years [...] Telephone Encounter - Liliana José R.N. - 05/25/2017 9:57 AM EST Pt to see dr Rae Gay at 10:30 recheduled for umass f/u * Telephone Encounter - Priscilla Calhoun - 05/25/2017 9:24 AM EST Patient states that she was admitted to ER again unsure for what reason and that she needs to follow up with pcp offered next available with pcp, patient asking for sooner appointment, patient had anappointment on 05/29/17 but needed to be rescheduled per center request. documented in this encounter Plan of Treatment Not on file documented as of this encounter Visit Diagnoses Not on filedocumented in this encounter Care Teams Manual Equipment Mechanic Relationship Specialty Start Date End Date Rae Boss DO PCP - General Internal Medicine 11/20/14 08/19/20 Chuck Cervantes MD PCP - General Internal Medicine 08/20/20 11/22/20 Erika Burciaga MD [address] [place], [place] [phone] PCP - General Internal Medicine 11/23/20 03/28/21 Hollie Nicholas MD [address] [place] [address] PCP - General Internal Medicine 03/29/21 11/07/21 Karin Clemente MD [address] [place] [address] PCP - General Internal Medicine 11/08/21 Amy Block DNP [address] [place] [address] Specialist Nurse Practitioner Family 10/11/23 Carlee Marcelo MD [address] [place] [address] Specialist Cardiology 10/11/23 documented as of this encounter
--- OUTSIDE RECORDS SUMMARY | 2024-07-27 14:45 | XMS_ITS | Encounter Summary ---
Author Organization [facility] Address [address] [place] [address] Care Team Providers Care Gas Regulator Repairer Helper Name Role Phone Rae Boss DO Primary Care Pro vider Unavailable Chuck Cervantes MD Primary Care Provider Unavailab Erika Herrera MD Primary Care Provider [phone] Hollie Nicholas MD Primary Care Provider Karin Vyas MD Primary Care Provider [phone] Amy Block DNP Unavailable [phone] Carlee Marcelo MD Unavailable [phone] Reason for Visit * Reason Onset Date Comments er follow up 03/20/2019 Encounter Details Date Type Department Care Team Description 03/20/2019 Telephone Adult Medicine [address] [phone] Karen Vazquez PA-C er follow up Social History Tobacco Use [...] encounter Miscellaneous Notes * Telephone Encounter - Arpita Griffiths - 03/20/2019 10:31 AM EST ER follow-up appointment booked YES 03/18/19 If ER or UC follow up, can be booked with APC or MD. If hospital admission follow up MUST be booked with a physician Appointment time: 10:00AM Provider visit is scheduled with: Karen Vazquez PA-C Hospital/UC center patient was treated at: [facility] Date of visit: 03/18/19 Was this only an ER/UC visit or was the patient admitted to the hospital? ER visit onlyER visit only If patient was admitted what was the date of discharge? N/A Reason/diagnosis for visit or stay: Back pain and Pelvic Pain Was visit or stay related to an injury? NO If yes, what was the date of injury (DOI)? N/A If yes, was the injury due to N/A Tests performed: Lab: YES X-ray: YES EKG: YES Other tests. If yes, what?; N/A documented in this encounter Plan of Treatment Not on file documented as of this encounter Visit Diagnoses Not on filedocumented in this encounter Care Teams Gas Regulator Repairer Helper Relationship Specialty Start Date End Date Rae Boss DO PCP - General Internal Medicine 11/20/14 08/19/20 Chuck Cervantes MD PCP - General Internal Medicine 08/20/20 11/22/20 Erika Burciaga MD [address] [place] [address] PCP - General Internal Medicine 11/23/20 03/28/21 Hollie Nicholas MD [address] [place], [place] [phone] PCP - General Internal Medicine 03/29/21 11/07/21 Karin Clemente MD [address] [place] [address] PCP - General Internal Medicine 11/08/21 Amy Block DNP [address] [place] [address] Specialist Nurse Practitioner Family 10/11/23 Carlee Marcelo MD [address] [place] [address] Specialist Cardiology 10/11/23 documented as of this encounter
--- OUTSIDE RECORDS SUMMARY | 2024-07-27 14:45 | XMS_ITS | Encounter Summary ---
Author Organization [facility] Address [address] [place] [address] Care Team Providers Care Copy Messenger Name Role Phone Karin Clemente MD Primary Care Provider [phone] Amy Block DNP Unavailable [phone] Carlee Marcelo MD Unavailable [phone] Reason for Visit * Reason Comments E-prescribe Rx Request Encounter Details Date Type Department Care Team Description 01/25/2024 Refill Pulmonology - [place] [address] [facility] [address] [place] [address] Shelly Ruiz APRN [address] [facility] [address] [place] [address] E-prescribe Rx Request Social History Tobacco Use [...] encounter Miscellaneous Notes * Telephone Encounter - Andrew Pham - 01/25/2024 8:15 AM EDT Sandra: 12/12/2023 Nov:06/11/2024 documented in this encounter Plan of Treatment Not on file documented as of this encounter Visit Diagnoses Diagnosis H/O multiple allergies Allergic rhinitis, unspecified seasonality, unspecified trigger documented in this encounter Care Teams Copy Messenger Relationship Specialty Start Date End Date Karin Clemente MD [address] [place] [address] PCP - General Internal Medicine 11/08/21 Amy Block DNP [address] [place] [address] Specialist Nurse Practitioner Family 10/11/23 Carlee Marcelo MD [address] [place] [address] Specialist Cardiology 10/11/23 documented as of this encounter
--- OUTSIDE RECORDS SUMMARY | 2024-07-27 14:45 | XMS_ITS | Encounter Summary ---
Author Organization [facility] Address [address] [place] [address] Care Team Providers Care Grinding Wheel Operator Name Role Phone Karin Clemente MD Primary Care Provider [phone] Amy Block DNP Unavailable [phone] Carlee Marcelo MD Unavailable [phone] Reason for Visit * Reason Comments E-prescribe Rx Request Encounter Details Date Type Department Care Team Description 01/24/2024 Refill Adult Medicine [address] [address] Alphonso Zimmerman, JOHN [address] [place] [address] [id number] E-prescribe Rx Request Social History Tobacco Use [...] Telephone Encounter - Lindsay Snell M.A. - 01/25/2024 8:59 AM EDT Last office visit 01/23/24 Next office visit 01/30/24 with PCP Last filled 01/25/23 for # [id number] with 1 refill. Will you fill? * Telephone Encounter - Landy Nath - 01/25/2024 8:06 AM EDT Patient would like script to be: E-PRESCRIBED/FAXED TO PHARMACY WHEN WAS THE PATIENT'S LAST APPOINTMENT IN ADULT MEDICINE? 01/23/2024 WHEN WAS THE LAST TIME THE PATIENT SAW THEIR PCP? 06/22/2023 Does patient have an upcoming appointment? Yes 01/30/2024 (THE MEDICATION REQUESTED IS ON THE MED [...] N/A Patients current insurance carrier is: Payor: [facility] FFS / Plan: [facility] / Product Type: MEDICAID RISK documented in this encounter Plan of Treatment Not on file documented as of this encounter Visit Diagnoses Not on filedocumented in this encounter Care Teams Grinding Wheel Operator Relationship Specialty Start Date End Date Karin Clemente MD [address] [place] [address] PCP - General Internal Medicine 11/08/21 Amy Block DNP [address] [place] [address] Specialist Nurse Practitioner Family 10/11/23 Carlee Marcelo MD [address] [place] [address] Specialist Cardiology 10/11/23 documented as of this encounter
--- OUTSIDE RECORDS SUMMARY | 2024-07-27 14:45 | XMS_ITS | Encounter Summary ---
Author Organization [facility] Address [address] [place] [address] Care Team Providers Care Motion Picture Actor Name Role Phone Rae Boss DO Primary Care Pro vider Unavailable Chuck Cervantes MD Primary Care Provider Unavailab Erika Herrera MD Primary Care Provider [phone] Hollie Nicholas MD Primary Care Provider Karin Vyas MD Primary Care Provider [phone] Amy Block DNP Unavailable [phone] Carlee Marcelo MD Unavailable [phone] Reason for Visit * Reason Onset Date Comments TEST RESULTS 02/19/2018 result nots Encounter Details Date Type Department Care Team Description 02/19/2018 Telephone Adult Medicine [address] [phone] Karen Vazquez PA-C TEST RESULTS (result nots ) Social History Tobacco Use Types Packs/Day Years [...] encounter Miscellaneous Notes * Telephone Encounter - Jarret Lerma M.A. - 02/19/2018 1:51 PM EST Patient aware. Please inform the patient that her blood work and preliminary results of her stool testing looked normal so far. I have placed a referral for gastroenterology for further workup as discussed in the office and she will be contacted this appointment. Telephone Information: documented in this encounter Plan of Treatment Not on file documented as of this encounter Visit Diagnoses Not on filedocumented in this encounter Care Teams Motion Picture Actor Relationship Specialty Start Date End Date Rae Boss DO PCP - General Internal Medicine 11/20/14 08/19/20 Chuck Cervantes MD PCP - General Internal Medicine 08/20/20 11/22/20 Erika Burciaga MD [address] [place] [address] PCP - General Internal Medicine 11/23/20 03/28/21 Hollie Nicholas MD [address] [place] [address] PCP - General Internal Medicine 03/29/21 11/07/21 Karin Clemente MD [address] [place] [address] PCP - General Internal Medicine 11/08/21 Amy Block DNP [address] [place] [address] Specialist Nurse Practitioner Family 10/11/23 Carlee Marcelo MD [address] [place] [address] Specialist Cardiology 10/11/23 documented as of this encounter
--- OUTSIDE RECORDS SUMMARY | 2024-07-27 14:45 | XMS_ITS | Encounter Summary ---
Author Organization [facility] Address [address] [place] [address] Care Team Providers Care Cigarette Carton Sealer Name Role Phone Karin Clemente MD Primary Care Provider [phone] Amy Block DNP Unavailable [phone] Carlee Marcelo MD Unavailable [phone] Reason for Visit * Reason Comments E-prescribe Rx Request Encounter Details Date Type Department Care Team Description 01/25/2024 Refill Pulmonology - [place] [address] [facility] [address] [place] [address] Shelly Ruiz APRN 175 [facility] [address] [place] [address] E-prescribe Rx Request Social History [...] encounter Miscellaneous Notes * Telephone Encounter - Maura Blandon - 01/25/2024 10:12 AM EDT NOV- 06/11/24 ANGELI-12/12/23 documented in this encounter Plan of Treatment Not on file documented as of this encounter Visit Diagnoses Diagnosis H/O multiple allergies documented in this encounter Care Teams Cigarette Carton Sealer Relationship Specialty Start Date End Date Karin Clemente MD [address] [place] [address] PCP - General Internal Medicine 11/08/21 Amy Block DNP [address] [place] [address] Specialist Nurse Practitioner Family 10/11/23 Carlee Marcelo MD [address] [place] [address] Specialist Cardiology 10/11/23 documented as of this encounter
--- OUTSIDE RECORDS SUMMARY | 2024-07-27 14:45 | XMS_ITS | Encounter Summary ---
Author Organization [facility] Address [address] [place] [address] Care Team Providers Care Mechanical Handyman Name Role Phone Rae Boss DO Primary Care Pro vider Unavailable Chuck Cervantes MD Primary Care Provider Unavailab Erika Herrera MD Primary Care Provider [phone] Hollie Nicholas MD Primary Care Provider Karin Vyas MD Primary Care Provider [phone] Amy Block DNP Unavailable [phone] Carlee Marcelo MD Unavailable [phone] Reason for Visit * Reason Onset Date Comments TEST RESULTS 01/27/2015 Encounter Details Date Type Department Care Team Description 01/27/2015 Telephone Adult Medicine [address] [address] Rae Boss DO TEST RESULTS Social History [...] encounter Miscellaneous Notes * Telephone Encounter - Shirley Galeana - 01/27/2015 11:20 AM EDT Inform patient: ANY URGENT OR ABNORMAL RESULTS WIILL RESULT IN A CALL BACK TO THE PATIENT SUZETTE. Type of test: :ay Date test was performed: [id number] Where was the test performed: rb Who ordered this test?: Dr Cruz Is the doctor here today?: YES Can the message wait until the doctor returns?: NO IF PATIENT'S PCP IS NOT IN INSTRUCT PATIENT THAT THEY WILL RECEIVE A CALL BACK WHEN THE PCP IS IN THE OFFICE NEXT. documented in this encounter Plan of Treatment Not on file documented as of this encounter Visit Diagnoses Not on filedocumented in this encounter Care Teams Mechanical Handyman Relationship Specialty Start Date End Date Rae Boss DO PCP - General Internal Medicine 11/20/14 08/19/20 Chuck Cervantes MD PCP - General Internal Medicine 08/20/20 11/22/20 Erika Burciaga MD [address] [place] [address] PCP - General Internal Medicine 11/23/20 03/28/21 Hollie Nicholas MD [address] [place] [address] PCP - General Internal Medicine 03/29/21 11/07/21 Karin Clemente MD [address] [place] [address] PCP - General Internal Medicine 11/08/21 Amy Block DNP [address] [place] [address] Specialist Nurse Practitioner Family 10/11/23 Carlee Marcelo MD [address] [place] [address] Specialist Cardiology 10/11/23 documented as of this encounter
--- OUTSIDE RECORDS SUMMARY | 2024-07-27 14:45 | XMS_ITS | Encounter Summary ---
Author Organization [facility] Address [address] [place] [address] Care Team Providers Care Air Conditioning Unit Assembler Name Role Phone Rae Boss DO Primary Care Pro vider Unavailable Chuck Cervantes MD Primary Care Provider Unavailab Erika Herrera MD Primary Care Provider [phone] Hollie Nicholas MD Primary Care Provider Karin Vyas MD Primary Care Provider [phone] Amy Block DNP Unavailable [phone] Carlee Marcelo MD Unavailable [phone] Encounter Details Date Type Department Care Team Description 05/28/2019 Cytopathology Technologist Report Medical Records [address] [place] [address] [facility], [address] [address] Social History Tobacco Use Types Packs/Day Years [...] on filedocumented in this encounter Care Teams Air Conditioning Unit Assembler Relationship Specialty Start Date End Date Rae Boss DO PCP - General Internal Medicine 11/20/14 08/19/20 Chuck Cervantes MD PCP - General Internal Medicine 08/20/20 11/22/20 Erika Burciaga MD [address] [place] [address] PCP - General Internal Medicine 11/23/20 03/28/21 Hollie Nicholas MD [address] [place], [place] [phone] PCP - General Internal Medicine 03/29/21 11/07/21 Karin Clemente MD [address] [place] [address] PCP - General Internal Medicine 11/08/21 Amy Block DNP [address] [place] [address] Specialist Nurse Practitioner Family 10/11/23 Carlee Marcelo MD [address] [place] [address] Specialist Cardiology 10/11/23 documented as of this encounter
--- OUTSIDE RECORDS SUMMARY | 2024-07-27 14:46 | XMS_ITS | Encounter Summary ---
Author Organization [facility] Address [address] [place] [address] Care Team Providers Care Geological Drafter Name Role Phone Rae Boss DO Primary Care Pro vider Unavailable Chuck Cervantes MD Primary Care Provider Unavailab Erika Herrera MD Primary Care Provider [phone] Hollie Nicholas MD Primary Care Provider Karin Vyas MD Primary Care Provider [phone] Amy Block DNP Unavailable [phone] Carlee Marcelo MD Unavailable [phone] Reason for Visit * Reason Onset Date Comments medication problems 10/29/2018 Encounter Details Date Type Department Care Team Description 10/29/2018 Telephone Adult Medicine [address] [address] Rae Boss DO medication problems Social History [...] Telephone Encounter - Rae Parker DO - 10/30/2018 6:05 AM EDT Sent in [employer] as alternative. If not covered will need to contact pharmacy to see what is covered * Telephone Encounter - Tarsha Rabago M.A. - 10/29/2018 4:58 PM EDT Please advise * Telephone Encounter - Evelin Calhoun - 10/29/2018 4:32 PM EDT Who is calling? A pharmacist: Pharmacy: [facility] Pharmacist Name: [facility] Name of the medication: Albuterol Sulfate 108 (90 BASE) MCG/ACT AEROSOL POWDER,BREATH ACTIVATED What is the specific problem or interaction? Not covered by insurance If the patient is having a problem with taking the med - how long has the problem been going on? N/A documented in this encounter Plan of Treatment Not on file documented as of this encounter Visit Diagnoses Not on filedocumented in this encounter Care Teams Geological Drafter Relationship Specialty Start Date End Date Rae Boss DO PCP - General Internal Medicine 11/20/14 08/19/20 Chuck Cervantes MD PCP - General Internal Medicine 08/20/20 11/22/20 Erika Burciaga MD [address] [place] [address] PCP - General Internal Medicine 11/23/20 03/28/21 Hollie Nicholas MD [address] [place] [address] PCP - General Internal Medicine 03/29/21 11/07/21 Karin Clemente MD [address] [place] [address] PCP - General Internal Medicine 11/08/21 Amy Block DNP [address] [place] [address] Specialist Nurse Practitioner Family 10/11/23 Carlee Marcelo MD [address] [place] [address] Specialist Cardiology 10/11/23 documented as of this encounter
--- OUTSIDE RECORDS SUMMARY | 2024-07-27 14:46 | XMS_ITS | Encounter Summary ---
Author Organization [facility] Address [address] [place] [address] Care Team Providers Care Monorail Helper Name Role Phone Karin Clemente MD Primary Care Provider [phone] Amy Block DNP Unavailable [phone] Carlee Marcelo MD Unavailable [phone] Encounter Details Date Type Department Care Team Description 05/12/2023 Pt. Non Urgent Medical Question Adult Medicine [address] [phone] Karin Clemente MD [address] [place] [address] [phone] Social History Tobacco Use Types Packs/Day Years [...] encounter Miscellaneous Notes * Telephone Encounter - Vicky White - 05/12/2023 9:39 AM ESTFrom: Krsytal Deforge To: Yong Bryn Sent: 05/12/2023 9:16 AM EST Subject: Medication Hi it krsytal deforge I'm wanted to let you know that I'm on my last two day of the prednisone and I'm still coughing and needing to do the updaft machine and inhaler and im now spitting up some brownish stuff when I cough and I'm wheezing alot at night to where it's hard for me to sleep I do feel a little better from when I seen you but I wanted to let you know like you told me too documented in this encounter Plan of Treatment Not on file documented as of this encounter Visit Diagnoses Not on filedocumented in this encounter Care Teams Monorail Helper Relationship Specialty Start Date End Date Karin Clemente MD [address] [place] [address] PCP - General Internal Medicine 11/08/21 Amy Block DNP [address] [place] [address] Specialist Nurse Practitioner Family 10/11/23 Carlee Marcelo MD [address] [place] [address] Specialist Cardiology 10/11/23 documented as of this encounter
--- OUTSIDE RECORDS SUMMARY | 2024-07-27 14:46 | XMS_ITS | Encounter Summary ---
Author Organization [facility] Address [address] [place] [address] Care Team Providers Care Offshore Wind Turbine Technician Name Role Phone Erika Burciaga MD Primary Care Provider [phone] Hollie Nicholas MD Primary Care Provider Karin Vyas MD Primary Care Provider [phone] Amy Block DNP Unavailable [phone] Carlee Marcelo MD Unavailable [phone] Encounter Details Date Type Department Care Team Description 02/24/2021 Metal Window Frame Maker Report Medical Records [address] [place] [address] [address] Social History Tobacco Use Types [...] have Coronavirus / COVID-19? No / Unsure 02/17/2021 8:35 AM EST documented as of this encounter Plan of Treatment Not on file documented as of this encounter Visit Diagnoses Not on filedocumented in this encounter Care Teams Offshore Wind Turbine Technician Relationship Specialty Start Date End Date Erika Burciaga MD [address] [place] [address] PCP - General Internal Medicine 11/23/20 03/28/21 Hollie Nicholas MD [address] [place] [address] PCP - General Internal Medicine 03/29/21 11/07/21 Karin Clemente MD [address] [place] [address] PCP - General Internal Medicine 11/08/21 Amy Block DNP [address] [place] [address] Specialist Nurse Practitioner Family 10/11/23 Carlee Marcelo MD [address] [place] [address]27 Specialist Cardiology 10/11/23 documented as of this encounter
--- OUTSIDE RECORDS SUMMARY | 2024-07-27 14:46 | XMS_ITS | Encounter Summary ---
Author Organization [facility] Address [address] [place] [address] Care Team Providers Care Bd Special Education Teacher Name Role Phone Rae Boss DO Primary Care Pro vider Unavailable Chuck Cervantes MD Primary Care Provider Unavailab Erika Herrera MD Primary Care Provider [phone] Hollie Nicholas MD Primary Care Provider Karin Vyas MD Primary Care Provider [phone] Amy Block DNP Unavailable [phone] Carlee Marcelo MD Unavailable [phone] Reason for Visit * Reason Comments E-prescribe Rx Request Encounter Details Date Type Department Care Team Description 01/12/2020 Refill Adult Medicine [address] [phone] Shelby Amor PA-C E-prescribe Rx Request Social History Tobacco [...] encounter Miscellaneous Notes * Telephone Encounter - Karen Lynne - 01/12/2020 12:40 PM EDT Patient would like script to be: E-PRESCRIBED/FAXED TO PHARMACY WHEN WAS THE PATIENT'S LAST APPOINTMENT IN ADULT MEDICINE? 10/07/2019 WHEN WAS THE LAST TIME THE PATIENT SAW THEIR PCP? Same as above Does patient have an upcoming appointment? Yes 03/18/2020 (THE MEDICATION REQUESTED IS ON THE MED LIST ABOVE) All of the medications requested were on the CURRENT MEDS list Did you check the Pharmacy information above?: YES Patient wants: 30 -day supply Is this a mail order prescription request ? NO If the refill is from a FAXED refill request what is the RX # listed on the fax? N/A Patients current insurance carrier is: Payor: [employer] FFS / Plan: [employer] / Product Type: MEDICAID RISK documented in this encounter Plan of Treatment Not on file documented as of this encounter Visit Diagnoses Not on filedocumented in this encounter Care Teams Bd Special Education Teacher Relationship Specialty Start Date End Date Rae Boss DO PCP - General Internal Medicine 11/20/14 08/19/20 Chuck Cervantes MD PCP - General Internal Medicine 08/20/20 11/22/20 Erika Burciaga MD [address] [place] [address] PCP - General Internal Medicine 11/23/20 03/28/21 Hollie Nicholas MD [address] [place] [address] PCP - General Internal Medicine 03/29/21 11/07/21 Karin Clemente MD [address] [place] [address] PCP - General Internal Medicine 11/08/21 Amy Block DNP [address] [place] [address] Specialist Nurse Practitioner Family 10/11/23 Carlee Marcelo MD [address] [place] [address] Specialist Cardiology 10/11/23 documented as of this encounter
--- OUTSIDE RECORDS SUMMARY | 2024-07-27 14:46 | XMS_ITS | Encounter Summary ---
Author Organization [facility] Address [address] [place] [address] Care Team Providers Care Industrial Yard Brake Coupler Name Role Phone Karin Clemente MD Primary Care Provider [phone] Amy Block DNP Unavailable [phone] Carlee Marcelo MD Unavailable [phone] Reason for Visit * Reason Onset Date Comments Faxed Order 11/16/2022 Encounter Details Date Type Department Care Team Description 11/16/2022 Telephone Adult Medicine [address] [phone] Karin Clemente MD [address] [place] [address] [phone] Faxed Order Social History Tobacco Use Types Packs/Day Years [...] suspected to have Coronavirus/COVID-19? No / Unsure 11/15/2022 2:11 PM EDT documented as of this encounter Miscellaneous Notes * Telephone Encounter - Judy Yessi Campoverde - 11/16/2022 3:54 PM EDT Select PT plan of care documented in this encounter Plan of Treatment Not on file documented as of this encounter Visit Diagnoses Not on filedocumented in this encounter Care Teams Industrial Yard Brake Coupler Relationship Specialty Start Date End Date Karin Clemente MD [address] [place] [address] PCP - General Internal Medicine 11/08/21 Amy Block DNP [address] [place] [address] Specialist Nurse Practitioner Family 10/11/23 Carlee Marcelo MD [address] [place] [address]120 Specialist Cardiology 10/11/23 documented as of this encounter
--- OUTSIDE RECORDS SUMMARY | 2024-07-27 14:46 | XMS_ITS | Encounter Summary ---
Author Organization [facility] Address [address] [place] [address] Care Team Providers Care Inspecting Supervisor Name Role Phone Rae Boss DO Primary Care Pro vider Unavailable Chuck Cervantes MD Primary Care Provider Unavailab Erika Herrera MD Primary Care Provider [phone] Hollie Nicholas MD Primary Care Provider Karin Vyas MD Primary Care Provider [phone] Amy Block DNP Unavailable [phone] Carlee Marcelo MD Unavailable [phone] Reason for Visit * Reason Onset Date Comments refill request 09/12/2019 Encounter Details Date Type Department Care Team Description 09/12/2019 Refill Respiratory and Diabetes Medicaid/ACO Pharmacist [address] [place] [address] [phone] Rae Boss DO refill request Social History Tobacco Use Types Packs/Day Years [...] encounter Miscellaneous Notes * Telephone Encounter - Pharm. TristinD - 09/12/2019 8:37 AM EDT Please consider refilling script(s) in light of the [facility] formulary changes. Karen Camarillo PharmD. Transition of Care Pharmacist [facility] [address] [place], [place] [phone] [email or web address] documented in this encounter Plan of Treatment Not on file documented as of this encounter Visit Diagnoses Not on filedocumented in this encounter Care Teams Inspecting Supervisor Relationship Specialty Start Date End Date Rae Boss DO PCP - General Internal Medicine 11/20/14 08/19/20 Chuck Cervantes MD PCP - General Internal Medicine 08/20/20 11/22/20 Erika Burciaga MD [address] [place] [address] PCP - General Internal Medicine 11/23/20 03/28/21 Hollie Nicholas MD [address] [place] [address] 24265 PCP - General Internal Medicine 03/29/21 11/07/21 Karin Clemente MD [address] [place] [address] PCP - General Internal Medicine 11/08/21 Amy Block DNP [address] [place] [address] 0[address] Specialist Nurse Practitioner Family 10/11/23 Carlee Marcelo MD [address] [place] [address] Specialist Cardiology 10/11/23 documented as of this encounter
--- OUTSIDE RECORDS SUMMARY | 2024-07-27 14:46 | XMS_ITS | Encounter Summary ---
Author Organization [facility] Address [address] [place] [address] Care Team Providers Care Forepart Rasper Name Role Phone Karin Clemente MD Primary Care Provider [phone] Amy Block DNP Unavailable [phone] Carlee Marcelo MD Unavailable [phone] Reason for Referral * EXTERNAL (Routine) - Authorized/Booked Specialty Diagnoses / Procedures Referred By Contact Referred To Contact Allergy & Immunology / Allergy Procedures REFERRAL TO ALLERGY Karin Clemente MD [address] [place] [address] [facility] [address] [place] [address] Referral ID Status Reason Start Date Expiration Date V isits Requested Visits Authorized [id number] Authorized/B ooked 01/19/2023 01/19/2024 1 1 Reason for Visit * Reason Onset Date Comments REFERRAL 01/19/2023 Encounter Details Date Type Department Care Team Description 01/19/2023 Telephone Adult Medicine [facility] [address] [place] [address] [phone] Karin Clemente MD [address] [place] [address] [phone] REFERRAL Social History Tobacco Use Types Packs/Day [...] suspected to have Coronavirus/COVID-19? No / Unsure 01/11/2023 12:43 PM EDT documented as of this encounter Miscellaneous Notes * Telephone Encounter - Chrissie Garcia M.A. 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 She cannot go into to [facility] for an appt and will wait for an appt locally. Dr. Clemente, please place new referral. * Telephone Encounter - Brennen Angelo - 01/19/2023 9:35 AM EDT Patient does not want to be referred to [facility] allergy and clinical immunology because shesays it is to far out of the way . documented in this encounter Plan of Treatment Not on file documented as of this encounter Visit Diagnoses Not on filedocumented in this encounter Care Teams Forepart Rasper Relationship Specialty Start Date End Date Karin Clemente MD [address] [place] [address] PCP - General Internal Medicine 11/08/21 Amy Block DNP [address] [place] [address] 116[address] Specialist Nurse Practitioner Family 10/11/23 Carlee Marcelo MD [address] [place] [address] 73737 Specialist Cardiology 10/11/23 documented as of this encounter
--- OUTSIDE RECORDS SUMMARY | 2024-07-27 14:46 | XMS_ITS | Encounter Summary ---
Author Organization [facility] Address [address] [place] [address] Care Team Providers Care Pump Station Operator Name Role Phone Rae Boss DO Primary Care Pro vider Unavailable Chuck Cervantes MD Primary Care Provider Unavailab Erika Herrera MD Primary Care Provider [phone] Hollie Nicholas MD Primary Care Provider Karin Vyas MD Primary Care Provider [phone] Amy Block DNP Unavailable [phone] Carlee Marcelo MD Unavailable [phone] Reason for Visit * Reason Comments E-prescribe Rx Request Encounter Details Date Type Department Care Team Description 10/06/2018 Refill PROBATION AND PAROLE OFFICER - [place] [address] [place] [address] Archana Ochoa CNM [address] [place] [address] E-prescribe Rx Request Social History Tobacco Use [...] encounter Miscellaneous Notes * Telephone Encounter - Joyce Elizabeth M.A. - 10/08/2018 9:47 AM EDT Please consider refill- AC * Telephone Encounter - Vicky Rodriguez - 10/08/2018 9:40 AM EDT WHEN WAS THE PATIENTS LAST ANNUAL MEDICAL SUPPLY TECHNICIAN EXAM?09/12/17 Does patient have an upcoming appointment? No- had ag sched 10/25 but the provider changed her sched- lm for pat to call back (THE MEDICATION REQUESTED IS ON THE MED LIST ABOVE) Did you check the Pharmacy information above?: YES Indicate how soon the patient needs the script: SUZETTE Patient would like script to be: E-PRESCRIBED/FAXED TO PHARMACY Is the doctor here today?: NO Can the message wait until the doctor returns?: NO Has the patient been told that the prescription will not be filled until the end of the day? NO Payor: [employer] FFS / Plan: [employer] [facility] / Product Type: MEDICAID RISK documented in this encounter Plan of Treatment Not on file documented as of this encounter Visit Diagnoses Not on filedocumented in this encounter Care Teams Pump Station Operator Relationship Specialty Start Date End Date Rae Boss DO PCP - General Internal Medicine 11/20/14 08/19/20 Chuck Cervantes MD PCP - General Internal Medicine 08/20/20 11/22/20 Erika Burciaga MD [address] [place] [address] PCP - General Internal Medicine 11/23/20 03/28/21 Hlolie Nicholas MD [address] [place] [address] PCP - General Internal Medicine 03/29/21 11/07/21 Karin Clemente MD [address] [place] [address] PCP - General Internal Medicine 11/08/21 Amy Block DNP [address] [place] [address] Specialist Nurse Practitioner Family 10/11/23 Carlee Marcelo MD [address] [place] [address] Specialist Cardiology 10/11/23 documented as of this encounter
--- OUTSIDE RECORDS SUMMARY | 2024-07-27 14:46 | XMS_ITS | Encounter Summary ---
Author Organization [facility] Address [address] [place] [address] Care Team Providers Care Check Out Cashier Name Role Phone Rae Boss DO Primary Care Pro vider Unavailable Chuck Cervantes MD Primary Care Provider Unavailab Erika Herrera MD Primary Care Provider [phone] Hollie Nicholas MD Primary Care Provider Karin Vyas MD Primary Care Provider [phone] Amy Block DNP Unavailable [phone] Carlee Marcelo MD Unavailable [phone] Reason for Visit * Reason Onset Date Comments Medication 03/21/2017 Encounter Details Date Type Department Care Team Description 03/21/2017 Telephone Adult Medicine [address] [address] Rae Boss, Medication Social History Tobacco Use Types Packs/Day Years [...] Miscellaneous Notes * Telephone Encounter - Vicky Chu C.M.A. - 03/21/2017 3:46 PM EST Robertoa please clarify fluticasone rx directions * Telephone Encounter - Maryanne Kaplan - 03/21/2017 3:32 PM EST Aixa from [facility] calling back, please call her at [phone] (re fluticasone 50 MCG/ACT nasal spray) * Telephone Encounter - Bernadine Nova - 03/21/2017 11:35 AM EST What is the name of the medication patient is having a problem with?: nasal spray What is the problem?: doseage is over the daily doseage by 200 micro grams Is the patient calling about the problem? NO If the patient is not the caller who is? [facility] Is this a NEW medication?: YES How long has the patient been taking this medication? Who prescribed this medication for the patient? mirrow Who is patients PCP?: Rae Gay Payor: [facility] MEDICAID / Plan: [facility] MEDICAID HMO $0 [place] / Product Type: HMO [id number] documented in this encounter Plan of Treatment Not on file documented as of this encounter Visit Diagnoses Not on filedocumented in this encounter Care Teams Check Out Cashier Relationship Specialty Start Date End Date Rae Boss DO PCP - General Internal Medicine 11/20/14 08/19/20 Chuck Cervantes MD PCP - General Internal Medicine 08/20/20 11/22/20 Erika Burciaga MD [address] [place] [address] PCP - General Internal Medicine 11/23/20 03/28/21 Hollie Nicholas MD [address] [place], [place] [phone] PCP - General Internal Medicine 03/29/21 11/07/21 Karin Clemente MD [address] [place] [address] PCP - General Internal Medicine 11/08/21 Amy Block DNP [address] [place] [address]77 Specialist Nurse Practitioner Family 10/11/23 Carlee Marcelo MD [address] [place] [address] Specialist Cardiology 10/11/23 documented as of this encounter
--- OUTSIDE RECORDS SUMMARY | 2024-07-27 14:46 | XMS_ITS | Encounter Summary ---
Author Organization [facility] Address [address] [place] [address] Care Team Providers Care Financial Analysis Consultant Name Role Phone Rae Boss DO Primary Care Pro vider Unavailable Chuck Cervantes MD Primary Care Provider Unavailab Erika Herrera MD Primary Care Provider [phone] Hollie Nicholas MD Primary Care Provider UnaKarin Nation MD Primary Care Provider [phone] Amy Block DNP Unavailable [phone] Carlee Marcelo MD Unavailable [phone] Reason for Referral * EXTERNAL (Routine) - Authorized/Booked Specialty Diagnoses / Procedures Referred By Janae lynch Referred To Contact Podiatry Procedures REFERRAL TO PODIATRY (OUT OF NETWORK) Rae Boss DO [address] [place] [address] [address] [place] [address] Referral ID Status Reason Start Date Expiration Date V isits Requested Visits Authorized SEE REVIEW Authorized/B ooked 10/28/2019 02/05/2020 1 1 Encounter Details Date Type Department Care Team Description 10/28/2019 Orders Only Adult Medicine [address] [address] Rae Boss DO Social History Tobacco Use [...] on filedocumented in this encounter Care Teams Financial Analysis Consultant Relationship Specialty Start Date End Date Rae Boss DO PCP - General Internal Medicine 11/20/14 08/19/20 Chuck Cervantes MD PCP - General Internal Medicine 08/20/20 11/22/20 Erika Burciaga MD [address] [place] [address] PCP - General Internal Medicine 11/23/20 03/28/21 Hollie Nicholas MD [address] [place] [address] PCP - General Internal Medicine 03/29/21 11/07/21 Karin Clemente MD [address] [place] [address] PCP - General Internal Medicine 11/08/21 Amy Block DNP [address] [place] [address]65 Specialist Nurse Practitioner Family 10/11/23 Carlee Marcelo MD [address] [place] [address] Specialist Cardiology 10/11/23 documented as of this encounter
--- OUTSIDE RECORDS SUMMARY | 2024-07-27 14:46 | XMS_ITS | Encounter Summary ---
Author Organization [facility] Address [address] [place] [address] Care Team Providers Care Director Medical Surgical Name Role Phone Hollie Nicholas MD Primary Care Provider Karin Vyas MD Primary Care Provider [phone] Amy Block DNP Unavailable [phone] Carlee Marcelo MD Unavailable [phone] Encounter Details Date Type Department Care Team Description 09/09/2021 Refill Adult Medicine [address] [address] Ada Diamond PA-C Social History Tobacco Use Types Packs/Day Years [...] suspected to have Coronavirus/COVID-19? No / Unsure 08/20/2021 12:50 PM EDT documented as of this encounter Miscellaneous Notes * Telephone Encounter - Lindsay Snell M.A. - 09/09/2021 11:09 AM EDT Last office visit 08/20/21 Pt needs to choose a new PCP and schedule an appt * Telephone Encounter - Katey Long - 09/09/2021 10:48 AM EDT Patient would like script to be: E-PRESCRIBED/FAXED TO PHARMACY WHEN WAS THE PATIENT'S LAST APPOINTMENT IN ADULT MEDICINE? 08/20/21 WHEN WAS THE LAST TIME THE PATIENT SAW THEIR PCP? Same as above Does patient have an upcoming appointment? Yes 02/21/22 (THE MEDICATION REQUESTED IS ON THE MED [...] N/A Patients current insurance carrier is: Payor: [employer] FFS / Plan: [employer] / Product Type: MEDICAID RISK documented in this encounter Plan of Treatment Not on file documented as of this encounter Visit Diagnoses Not on filedocumented in this encounter Care Teams Director Medical Surgical Relationship Specialty Start Date End Date Hollie Nicholas MD PCP - General Internal Medicine 03/29/21 11/07/21 Karin Clemente MD [address] [place] [address] PCP - General Internal Medicine 11/08/21 Amy Block DNP [address] [place] [address] Specialist Nurse Practitioner Family 10/11/23 Carlee Marcelo MD [address] [place] [address] [phone] Specialist Cardiology 10/11/23 documented as of this encounter
--- OUTSIDE RECORDS SUMMARY | 2024-07-27 14:46 | XMS_ITS | Encounter Summary ---
Author Organization [facility] Address [address] [place] [address] Care Team Providers Care Solid Waste Technician Name Role Phone Rae Boss DO Primary Care Pro vider Unavailable Chuck Cervantes MD Primary Care Provider Unavailab Erika Herrera MD Primary Care Provider [phone] Hollie Nicholas MD Primary Care Provider Karin Vyas MD Primary Care Provider [phone] Amy Block DNP Unavailable [phone] Carlee Marcelo MD Unavailable Reason for Visit * Reason Onset Date Comments REFERRAL 10/25/2019 Encounter Details Date Type Department Care Team Description 10/25/2019 Telephone Adult Medicine [address] [address] Rae Boss, REFERRAL Social History Tobacco Use Types Packs/Day [...] Telephone Encounter - Rae Parker DO - 10/28/2019 3:06 PM EDT Ref for second opinion placed * Telephone Encounter - Janay Fontanez M.A. - 10/25/2019 3:25 PM EDT Please read message below and advise * Telephone Encounter - Kasey Mcwilliams - 10/25/2019 12:19 PM EDT Patient states she was referred to [facility]. She went to the appt and found that they are extremely rude and she will not go back. She is asking that her PCP refer her to a different word processing specialist. Patient doesn't have anyone in mind, she would like Dr aidan documented in this encounter Plan of Treatment Not on file documented as of this encounter Visit Diagnoses Not on filedocumented in this encounter Care Teams Solid Waste Technician Relationship Specialty Start Date End Date Rae Boss DO PCP - General Internal Medicine 11/20/14 08/19/20 Chuck Cervantes MD PCP - General Internal Medicine 08/20/20 11/22/20 Erika Burciaga MD [address] [place] [address] PCP - General Internal Medicine 11/23/20 03/28/21 Hollie Nicholas MD [address] [place] [address] PCP - General Internal Medicine 03/29/21 11/07/21 Karin Clemente MD [address] [place] [address] [phone] PCP - General Internal Medicine 11/08/21 Amy Block DNP [address] [place] [address] Specialist Nurse Practitioner Family 10/11/23 Carlee Marcelo MD [address] [place] [address] Specialist Cardiology 10/11/23 documented as of this encounter
--- OUTSIDE RECORDS SUMMARY | 2024-07-27 14:46 | XMS_ITS | Encounter Summary ---
Author Organization [facility] Address [address] [place] [address] Care Team Providers Care Air Brake Worker Name Role Phone Karin Clemente MD Primary Care Provider [phone] Amy Block DNP Unavailable [phone] Carlee Marcelo MD Unavailable [phone] Encounter Details Date Type Department Care Team Description 03/01/2023 Orders Only Pulmonology - [place] [address] [facility] [address] [place] [address] Shelly Ruiz APRN [address] [facility] [address] [place] [phone] Acute cough Social History Tobacco Use Types Packs/Day Years [...] suspected to have Coronavirus/COVID-19? No / Unsure 02/16/2023 12:29 PM EST documented as of this encounter Plan of Treatment Not on file documented as of this encounter Procedures Procedure Name Priority Date/Time Associated Diagnosis Comments CHG RADIOLOGIC EXAM CHEST 2 VIEWS Routine 023 Acute cough documented in this encounter Results * RADIOLOGIC EXAM CHEST 2 VIEWS (02/28/2023) Shelly Sara [facility] documented in this encounter Visit Diagnoses Diagnosis Acute cough documented in this encounter Care Teams Air Brake Worker Relationship Specialty Start Date End Date Karin Clemente MD [address] [place] [address] PCP - General Internal Medicine 11/08/21 Amy Block DNP [address] [place] [address] Specialist Nurse Practitioner Family 10/11/23 Carlee Marcelo MD [address] [place] [address] Specialist Cardiology 10/11/23 documented as of this encounter
--- OUTSIDE RECORDS SUMMARY | 2024-07-27 14:46 | XMS_ITS | Encounter Summary ---
Author Organization [facility] Address [address] [place] [address] Care Team Providers Care Cataloging Assistant Name Role Phone Rae Boss DO Primary Care Pro vider Unavailable Chuck Cervantes MD Primary Care Provider Unavailab Erika Herrera MD Primary Care Provider [phone] Hollie Nicholas MD Primary Care Provider Karin Vyas MD Primary Care Provider [phone] Amy Block DNP Unavailable [phone] Carlee Marcelo MD Unavailable Encounter Details Date Type Department Care Team Description 04/30/2016 [facility] Medical Records [address] [place] [address] Abstract, Provider Social History Tobacco Use Types [...] on filedocumented in this encounter Care Teams Cataloging Assistant Relationship Specialty Start Date End Date Rae Boss DO PCP - General Internal Medicine 11/20/14 08/19/20 Chuck Cervantes MD PCP - General Internal Medicine 08/20/20 11/22/20 Erika Burciaga MD [address] [place] [address] PCP - General Internal Medicine 11/23/20 03/28/21 Hollie Nicholas MD [address] [place] [address] PCP - General Internal Medicine 03/29/21 11/07/21 Karin Clemente MD [address] [place], [place] [phone] PCP - General Internal Medicine 11/08/21 Amy Block DNP [address] [place] [address] Specialist Nurse Practitioner Family 10/11/23 Carlee Marcelo MD [address] [place] [address] Specialist Cardiology 10/11/23 documented as of this encounter
--- OUTSIDE RECORDS SUMMARY | 2024-07-27 14:46 | XMS_ITS | Encounter Summary ---
Author Organization [facility] Address [address] [place] [address] Care Team Providers Care Hadoop Application Developer Name Role Phone Rae Boss DO Primary Care Pro vider Unavailable Chuck Cervantes MD Primary Care Provider Unavailab Erika Herrera MD Primary Care Provider [phone] Hollie Nicholas MD Primary Care Provider Karin Vyas MD Primary Care Provider [phone] Amy Block DNP Unavailable [phone] Carlee Marcelo MD Unavailable [phone] Reason for Visit * Reason Onset Date Comments Scaffold Erector Feedback 11/18/2019 Dr. Derek paiz Encounter Details Date Type Department Care Team Description 11/18/2019 Telephone Adult [address] [phone] Rae Boss DO Scaffold Erector Feedback ( Dr. Derek Masters ) Social History Tobacco Use Types Packs/Day [...] * Telephone Encounter - Kasey Cole - 11/18/2019 11:41 AM EDT Patient scheduled her own appointment with Dr. Mas for 12/19/19, but will call office to see if will see her sooner. * Telephone Encounter - Lynn Nash - 11/18/2019 10:49 AM EDT The patient is calling regarding her referral to Dr. Derek Masters. She called his office twice last week and when she called today there was a recorded message that states the office has permanently closed to to the Covid-19 issue. Please advise. documented in this encounter Plan of Treatment Not on file documented as of this encounter Visit Diagnoses Not on filedocumented in this encounter Care Teams Hadoop Application Developer Relationship Specialty Start Date End Date Rae Boss DO PCP - General Internal Medicine 11/20/14 08/19/20 Chuck Cervantes MD PCP - General Internal Medicine 08/20/20 11/22/20 Erika Burciaga MD [address] [place] [address] PCP - General Internal Medicine 11/23/20 03/28/21 Hollie Nicholas MD [address] [place] [address] PCP - General Internal Medicine 03/29/21 11/07/21 Karin Clemente MD [address] [place] [address] [place] [address] PCP - General Internal Medicine 11/08/21 Amy Block DNP [address] [place] [address] Specialist Nurse Practitioner [facility] 10/11/23 Carlee Marcelo MD [address] [place], [place] [phone] Specialist Cardiology 10/11/23 documented as of this encounter
--- OUTSIDE RECORDS SUMMARY | 2024-07-27 14:46 | XMS_ITS | Encounter Summary ---
Author Organization [facility] Address [address] [place] [address] Care Team Providers Care Guest Relations Manager Name Role Phone Rae Boss DO Primary Care Pro vider Unavailable Chuck Cervantes MD Primary Care Provider Unavailab Erika Herrera MD Primary Care Provider [phone] Hollie Nicholas MD Primary Care Provider Karin Vyas MD Primary Care Provider [phone] Amy Block DNP Unavailable [phone] Carlee Marcelo MD Unavailable [phone] Reason for Visit * Reason Comments E-prescribe Rx Request Encounter Details Date Type Department Care Team Description 08/13/2019 Refill Adult Medicine [address] [id number] Shelby Amor PA-C E-prescribe Rx Request Social [...] encounter Miscellaneous Notes * Telephone Encounter - Janay Fontanez M.A. - 08/13/2019 1:09 PM EDT Last ov 07/16/19 * Telephone Encounter - Courtney Suero - 08/13/2019 12:05 PM EDT Patient would like script to be: E-PRESCRIBED/FAXED TO PHARMACY WHEN WAS THE PATIENT'S LAST APPOINTMENT IN ADULT MEDICINE? 07/16/19 WHEN WAS THE LAST TIME THE PATIENT SAW THEIR PCP? Same as above Does patient have an upcoming appointment? no (THE MEDICATION REQUESTED IS ON THE MED [...] N/A Patients current insurance carrier is: Payor: [employer] FFS / Plan: [employer] / Product Type: MEDICAID RISK documented in this encounter Plan of Treatment Not on file documented as of this encounter Visit Diagnoses Not on filedocumented in this encounter Care Teams Guest Relations Manager Relationship Specialty Start Date End Date Rae Boss DO PCP - General Internal Medicine 11/20/14 08/19/20 Chuck Cervantes MD PCP - General Internal Medicine 08/20/20 11/22/20 Erika Burciaga MD [address] [place] [address] PCP - General Internal Medicine 11/23/20 03/28/21 Hollie Nicholas MD [address] [place] [address] PCP - General Internal Medicine 03/29/21 11/07/21 Karin Clemente MD [address] [place] [address] PCP - General Internal Medicine 11/08/21 Amy Block DNP [address] [place] [address] Specialist Nurse Practitioner [facility] 10/11/23 Carlee Marcelo MD [address] [place] [address] Specialist Cardiology 10/11/23 documented as of this encounter
--- OUTSIDE RECORDS SUMMARY | 2024-07-27 14:46 | XMS_ITS | Encounter Summary ---
Author Organization [facility] Address [address] [place] [address] Care Team Providers Care Cotton Picker Operator Name Role Phone Karin Clemente MD Primary Care Provider [phone] Amy Block DNP Unavailable [phone] Carlee Marcelo MD Unavailable [phone] Encounter Details Date Type Department Care Team Description 05/12/2023 Pt. Non Urgent Medical Question Adult Medicine [address] [id number] Karin Clemente MD [address] [place] [address] [id number] Social History Tobacco Use Types Packs/Day Years [...] Telephone Encounter - Vicky White - 05/12/2023 9:40 AM ESTFrom: Krsytal Deforge To: Yong Clemente Sent: 05/12/2023 9:35 AM EST Subject: Flu My son and my kids father was just told they had flu a should I be retested for it they did test meon Monday at the hospital but I was negative but I had just started feeling sick on so could I had a false negative I sent you a message before this about my prednisone please let me know documented in this encounter Plan of Treatment Not on file documented as of this encounter Visit Diagnoses Not on filedocumented in this encounter Care Teams Cotton Picker Operator Relationship Specialty Start Date End Date Karin Clemente MD [address] [place] [address] PCP - General Internal Medicine 11/08/21 mAy Block DNP [address] [place] [address] Specialist Nurse Practitioner Family 10/11/23 Carlee Marcelo MD [address] [place] [address] Specialist Cardiology 10/11/23 documented as of this encounter
--- OUTSIDE RECORDS SUMMARY | 2024-07-27 14:46 | XMS_ITS | Encounter Summary ---
Author Organization [facility] Address [address] [place] [address] Care Team Providers Care Communications Field Technician Name Role Phone Karin Clemente MD Primary Care Provider [phone] Amy Block DNP Unavailable [phone] Carlee Marcelo MD Unavailable [phone] Encounter Details Date Type Department Care Team Description 05/11/2023 Orders Only Medical Records [address] [place] [address] [facility] Social History Tobacco Use Types Packs/Day Years [...] Procedure Name Priority Date/Time Associated Diagnosis Comments OUTSIDE EKG Routine 05/05/2023 OUTSIDE LAB Routine 05/05/2023 documented in this encounter Results * OUTSIDE LAB (05/05/2023) Narrative Authorizing Provider Result [facility] [place] [facility] * OUTSIDE EKG (05/05/2023) Narrative Authorizing Provider Result [facility] [place] [facility] documented in this encounter Visit Diagnoses Not on filedocumented in this encounter Care Teams Communications Field Technician Relationship Specialty Start Date End Date Karin Clemente MD [address] [place] [address] [phone] PCP - General Internal Medicine 11/08/21 Amy Block DNP [address] [place] [address] Specialist Nurse Practitioner Family 10/11/23 Carlee Marcelo MD [address] [place] [address] Specialist Cardiology 10/11/23 documented as of this encounter
--- OUTSIDE RECORDS SUMMARY | 2024-07-27 14:46 | XMS_ITS | Encounter Summary ---
Author Organization [facility] Address [address] [place] [address] Care Team Providers Care Forest Officer Name Role Phone Rae Boss DO Primary Care Pro vider Unavailable Chuck Cervantes MD Primary Care Provider Unavailab Erika Herrera MD Primary Care Provider [phone] Hollie Nicholas MD Primary Care Provider Karin Vyas MD Primary Care Provider [phone] Amy Block DNP Unavailable [phone] Carlee Marcelo MD Unavailable [phone] Reason for Visit * Reason Onset Date Comments refill request 06/13/2016 Encounter Details Date Type Department Care Team Description 06/13/2016 Telephone BUILDING SERVICE WORKER - [place] [address] [place] [address] Archana Ochoa CNM [address] [place] [address] refill request Social History Tobacco Use Types [...] encounter Miscellaneous Notes * Telephone Encounter - Marry Romero - 06/13/2016 9:26 AM EDT Pt calling requesting rx for BCP. Tri-previfem tablet Pt last PE 12-28-15 documented in this encounter Plan of Treatment Not on file documented as of this encounter Visit Diagnoses Not on filedocumented in this encounter Care Teams Forest Officer Relationship Specialty Start Date End Date Rae Boss DO PCP - General Internal Medicine 11/20/14 08/19/20 Chuck Cervantes MD PCP - General Internal Medicine 08/20/20 11/22/20 Erika Burciaga MD [address] [place] [address] PCP - General Internal Medicine 11/23/20 03/28/21 Hollie Nicholas MD [address] [place] [address] PCP - General Internal Medicine 03/29/21 11/07/21 Karin Clemente MD [address] [place] [address] PCP - General Internal Medicine 11/08/21 Amy Block DNP [address] [place] [address] Specialist Nurse Practitioner Family 10/11/23 Carlee Marcelo MD [address] [place] [address] Specialist Cardiology 10/11/23 documented as of this encounter
--- OUTSIDE RECORDS SUMMARY | 2024-07-27 14:46 | XMS_ITS | Encounter Summary ---
Author Organization [facility] Address [address] [place] [address] Care Team Providers Care Tool Machine Set Up Operator Name Role Phone Rae Boss DO Primary Care Pro vider Unavailable Chuck Cervantes MD Primary Care Provider Unavailab Erika Herrera MD Primary Care Provider [phone] Hollie Nicholas MD Primary Care Provider Karin Vyas MD Primary Care Provider [phone] Amy Block DNP Unavailable [phone] Carlee Marcelo MD Unavailable [phone] Reason for Visit * Reason Onset Date Comments APPOINTMENT 03/14/2016 Encounter Details Date Type Department Care Team Description 03/14/2016 Telephone Gastroenterology - [address] [phone] Annie Flores MD APPOINTMENT Social History Tobacco Use Types Packs/Day Years [...] encounter Miscellaneous Notes * Telephone Encounter - Neeru Duarte R.N. - 03/14/2016 1:51 PM EST Pt had spoken to Martha HOWARD this am and was instructed on how to administer enemas, was going to have her do it. Pt had spoken to Yohana HOWARD earlier, pt had reported anxiety about procedure and giving herself enemas, Yohana HOWARD instructed pt to get here at 2 pm to have staff assistance with enemas, Pt was to find transportation. Pt called back and could not find transportation, is having PT 1 van pick her up at [address] Flores, pt can come in at scheduled time and staff will help with enemas. Pt verbalized understanding of instructions, agreed with plan. * Telephone Encounter - Annette Lima - 03/14/2016 12:24 PM EST Patient called again regarding the procedure, transferred call to GI Nurse * Telephone Encounter - Nikki Bosch - 03/14/2016 11:44 AM EST Pt is worried about having flex sig done today, she would like to speak to or a nurse. Please call her back documented in this encounter Plan of Treatment Not on file documented as of this encounter Visit Diagnoses Not on filedocumented in this encounter Care Teams Tool Machine Set Up Operator Relationship Specialty Start Date End Date Rae Boss DO PCP - General Internal Medicine 11/20/14 08/19/20 Chuck Cervantes MD PCP - General Internal Medicine 08/20/20 11/22/20 Erika Burciaga MD [address] [place] [address] PCP - General Internal Medicine 11/23/20 03/28/21 Hollie Nicholas MD [address] [place] [address] PCP - General Internal Medicine 03/29/21 11/07/21 Karin Clemente MD [address] [place] [address] PCP - General Internal Medicine 11/08/21 Amy Block DNP [address] [place] [address] Specialist Nurse Practitioner Family 10/11/23 Carlee Marcelo MD [address] [place] [address] Specialist Cardiology 10/11/23 documented as of this encounter
--- OUTSIDE RECORDS SUMMARY | 2024-07-27 14:46 | XMS_ITS | Encounter Summary ---
Author Organization [facility] Address [address] [place] [address] Care Team Providers Care Sweatband Cutting Machine Operator Name Role Phone Rae Boss DO Primary Care Pro vider Unavailable Chuck Cervantes MD Primary Care Provider Unavailab Erika Herrera MD Primary Care Provider [phone] Hollie Nicholas MD Primary Care Provider Karin Vyas MD Primary Care Provider [phone] Amy Block DNP Unavailable [phone] Calree Marcelo MD Unavailable [phone] Reason for Visit * Reason Comments E-prescribe Rx Request Encounter Details Date Type Department Care Team Description 01/18/2020 Refill OBGYN - [place] [address] [place], [place] [phone] Amy Wang DO E-prescribe Rx Request Social History Tobacco Use [...] encounter Miscellaneous Notes * Telephone Encounter - Thelma Patel - 01/20/2020 10:27 AM EDT WHEN WAS THE PATIENTS LAST ANNUAL CLIN ASST EXAM? 05/13/2019 Does patient have an upcoming appointment? No (THE MEDICATION REQUESTED IS ON THE MED LIST ABOVE) Did you check the Pharmacy information above?: YES Indicate how soon the patient needs the script: BY THE END OF THE DAY Patient would like script to be: E-PRESCRIBED/FAXED TO PHARMACY Is the doctor here today?: NO Can the message wait until the doctor returns?: NO Has the patient been told that the prescription will not be filled until the end of the day? NO [facility] / Plan: [facility] / Product Type: MEDICAID RISK documented in this encounter Plan of Treatment Not on file documented as of this encounter Visit Diagnoses Not on filedocumented in this encounter Care Teams Sweatband Cutting Machine Operator Relationship Specialty Start Date End Date Rae Boss DO PCP - General Internal Medicine 11/20/14 08/19/20 Chuck Cervantes MD PCP - General Internal Medicine 08/20/20 11/22/20 Erika Burciaga MD [address] [place] [address] PCP - General Internal Medicine 11/23/20 03/28/21 Hollie Nicholas MD [address] [place] [address] PCP - General Internal Medicine 03/29/21 11/07/21 Karin Clemente MD [address] [place] [address] PCP - General Internal Medicine 11/08/21 Amy Block DNP [address] [place] [address] Specialist Nurse Practitioner Family 10/11/23 Carlee Marcelo MD [address] [place] [address] Specialist Cardiology 10/11/23 documented as of this encounter
--- OUTSIDE RECORDS SUMMARY | 2024-07-27 14:46 | XMS_ITS | Encounter Summary ---
Author Organization [facility] Address [address] [place] [address] Care Team Providers Care Edge Burnisher Name Role Phone Rae Boss DO Primary Care Pro vider Unavailable Chuck Cervantes MD Primary Care Provider Unavailab Erika Herrera MD Primary Care Provider [phone] Hollie Nicholas MD Primary Care Provider Karin Vyas MD Primary Care Provider [phone] Amy Block DNP Unavailable [phone] Carlee Marcelo MD Unavailable [phone] Encounter Details Date Type Department Care Team Description 01/27/2016 Release of Information Medical Records [address] [place] [id number] Abstract, Provider Social History Tobacco Use Types [...] on filedocumented in this encounter Care Teams Edge Burnisher Relationship Specialty Start Date End Date Rae Boss DO PCP - General Internal Medicine 11/20/14 08/19/20 Chuck Cervantes MD PCP - General Internal Medicine 08/20/20 11/22/20 Erika Burciaga MD [address] [place] [address] PCP - General Internal Medicine 11/23/20 03/28/21 Hollie Nicholsa MD [address] [place] [address] PCP - General Internal Medicine 03/29/21 11/07/21 Karin Clemente MD [address] [place], [place] [address]230[address] PCP - General Internal Medicine 11/08/21 Amy Block DNP [address] [place] [address] Specialist Nurse Practitioner Family 10/11/23 Carlee Marcelo MD [address] [place] [address] Specialist Cardiology 10/11/23 documented as of this encounter
--- OUTSIDE RECORDS SUMMARY | 2024-07-27 14:46 | XMS_ITS | Encounter Summary ---
Author Organization [facility] Address [address] [place] [address] Care Team Providers Care Sales And Leasing Agent Name Role Phone Rae Boss DO Primary Care Pro vider Unavailable Chuck Cervantes MD Primary Care Provider Unavailab Erika Herrera MD Primary Care Provider [phone] Hollie Nicholas MD Primary Care Provider Karin Vyas MD Primary Care Provider [phone] Amy Block DNP Unavailable [phone] Carlee Marcelo MD Unavailable [phone] Encounter Details Date Type Department Care Team Description 10/30/2018 Orders Only Adult Medicine [address] [phone] Rae Boss DO Social History Tobacco Use [...] on filedocumented in this encounter Care Teams Sales And Leasing Agent Relationship Specialty Start Date End Date Rae Boss DO PCP - General Internal Medicine 11/20/14 08/19/20 Chuck Cervantes MD PCP - General Internal Medicine 08/20/20 11/22/20 Erika Burciaga MD [address] [place] [address] PCP - General Internal Medicine 11/23/20 03/28/21 Hollie Nicholas MD [address] [place] [address] PCP - General Internal Medicine 03/29/21 11/07/21 Karin Clemente MD [address] [place] [address] PCP - General Internal Medicine 11/08/21 Amy Block DNP [address] [place] [address] Specialist Nurse Practitioner Family 10/11/23 Carlee Marcelo MD [address] [place] [address] Specialist Cardiology 10/11/23 documented as of this encounter
--- OUTSIDE RECORDS SUMMARY | 2024-07-27 14:46 | XMS_ITS | Encounter Summary ---
Author Organization [facility] Address [address] [place] [address] Care Team Providers Care Frame Straightener Name Role Phone Rae Boss DO Primary Care Pro vider Unavailable Chuck Cervantes MD Primary Care Provider Unavailab Erika Herrera MD Primary Care Provider [phone] Hollie Nicholas MD Primary Care Provider Karin Vyas MD Primary Care Provider [phone] Amy Block DNP Unavailable [phone] Carlee Marcelo MD Unavailable [phone] Encounter Details Date Type Department Care Team Description 05/14/2016 Night Triage Doc Medical Records [address] [place] [address] Abstract, Provider Social History Tobacco Use Types [...] on filedocumented in this encounter Care Teams Frame Straightener Relationship Specialty Start Date End Date Rae Boss DO PCP - General Internal Medicine 11/20/14 08/19/20 Chuck Cervantes MD PCP - General Internal Medicine 08/20/20 11/22/20 Erika Burciaga MD [address] [place] [address] PCP - General Internal Medicine 11/23/20 03/28/21 Hollie Nicholas MD [address] [place] [address] PCP - General Internal Medicine 03/29/21 11/07/21 Karin Clemente MD [address] [place], [place] [address] PCP - General Internal Medicine 11/08/21 Amy Block DNP [address] [place] [address] Specialist Nurse Practitioner Family 10/11/23 Carlee Marcelo MD [address] [place] [address] Specialist Cardiology 10/11/23 documented as of this encounter
--- OUTSIDE RECORDS SUMMARY | 2024-07-27 14:46 | XMS_ITS | Encounter Summary ---
Author Organization [facility] Address [address] [place] [address] Care Team Providers Care Certifed Refrigeration Operator Name Role Phone Rae Boss DO Primary Care Pro vider Unavailable Chuck Cervantes MD Primary Care Provider Unavailab Erika Herrera MD Primary Care Provider [phone] Hollie Nicholas MD Primary Care Provider Karin Vyas MD Primary Care Provider [phone] Amy Block DNP Unavailable [phone] Carlee Marcelo MD Unavailable [phone] Reason for Visit * Reason Comments E-prescribe Rx Request Encounter Details Date Type Department Care Team Description 08/30/2018 Refill Adult Medicine [address] [address] Rae Boss DO E-prescribe Rx Request Social History Tobacco [...] Miscellaneous Notes * Telephone Encounter - Arpita Dickenstariq - 08/30/2018 10:19 AM EDT Patient would like script to be: E-PRESCRIBED/FAXED TO PHARMACY WHEN WAS THE PATIENT'S LAST APPOINTMENT IN ADULT MEDICINE? 08/13/18 WHEN WAS THE LAST TIME THE PATIENT SAW THEIR PCP? Same as above Does patient have an upcoming appointment? Patient will call to schedule an appointment. (THE MEDICATION REQUESTED IS ON THE MED [...] N/A Patients current insurance carrier is: Payor: [employer] FFS / Plan: [employer]IANCE / Product Type: MEDICAID RISK documented in this encounter Plan of Treatment Not on file documented as of this encounter Visit Diagnoses Not on filedocumented in this encounter Care Teams Certifed Refrigeration Operator Relationship Specialty Start Date End Date Rae Boss DO PCP - General Internal Medicine 11/20/14 08/19/20 Chuck Cervantes MD PCP - General Internal Medicine 08/20/20 11/22/20 Erika Burciaga MD [address] [place] [address] PCP - General Internal Medicine 11/23/20 03/28/21 Hollie Nicholas MD [address] [place] [address] PCP - General Internal Medicine 03/29/21 11/07/21 Karin Clemente MD [address] [place] [address] PCP - General Internal Medicine 11/08/21 Amy Block DNP [address] [place] [address] Specialist Nurse Practitioner Family 10/11/23 Carlee Marcelo MD [address] [place] [address] Specialist Cardiology 10/11/23 documented as of this encounter
--- OUTSIDE RECORDS SUMMARY | 2024-07-27 14:46 | XMS_ITS | Encounter Summary ---
Author Organization [facility] Address [address] [place] [address] Care Team Providers Care Hand Hide Stretcher Name Role Phone Rae Boss DO Primary Care Pro vider Unavailable Chuck Cervantes MD Primary Care Provider Unavailab Erika Herrera MD Primary Care Provider [phone] Hollie Nicholas MD Primary Care Provider Karin Vyas MD Primary Care Provider [phone] Amy Block DNP Unavailable [phone] Carlee Marcelo MD Unavailable [phone] Encounter Details Date Type Department Care Team Description 12/15/2015 Telephone Gastroenterology - [address] [phone] Annie Flores MD Social History Tobacco Use Types Packs/Day [...] on filedocumented in this encounter Care Teams Hand Hide Stretcher Relationship Specialty Start Date End Date Rae Boss DO PCP - General Internal Medicine 11/20/14 08/19/20 Chuck Cervantes MD PCP - General Internal Medicine 08/20/20 11/22/20 Erika Burciaga MD [address] [place] [address] PCP - General Internal Medicine 11/23/20 03/28/21 Hollie Nicholas MD [address] [place] [address] PCP - General Internal Medicine 03/29/21 11/07/21 Karin Clemente MD [address] [place] [address] PCP - General Internal Medicine 11/08/21 Amy Block DNP [address] [place] [address] Specialist Nurse Practitioner Family 10/11/23 Carlee Marcelo MD [address] [place] [address] Specialist Cardiology 10/11/23 documented as of this encounter
--- OUTSIDE RECORDS SUMMARY | 2024-07-27 14:46 | XMS_ITS | Encounter Summary ---
Author Organization [facility] Address [address] [place] [address] Care Team Providers Care Lube Technician Name Role Phone Rae Boss DO Primary Care Pro vider Unavailable Chuck Cervantes MD Primary Care Provider Unavailab Erika Herrera MD Primary Care Provider [phone] Hollie Nicholas MD Primary Care Provider Karin Vyas MD Primary Care Provider [phone] Amy Block DNP Unavailable [phone] Carlee Marcelo MD Unavailable [phone] Reason for Visit * Reason Comments E-prescribe Rx Request Encounter Details Date Type Department Care Team Description 10/30/2019 Refill Adult Medicine [address] [id number] Rae Boss DO E-prescribe Rx Request Social [...] Telephone Encounter - Lindsay Snell M.A. - 10/30/2019 2:11 PM EDT Last office visit 10/10/19 * Telephone Encounter - Jonatan Boykin - 10/30/2019 1:26 PM EDT Patient would like script to be: E-PRESCRIBED/FAXED TO PHARMACY WHEN WAS THE PATIENT'S LAST APPOINTMENT IN ADULT MEDICINE? 10/18/2019 WHEN WAS THE LAST TIME THE PATIENT SAW THEIR PCP? 10/07/2019 Does patient have an upcoming appointment? Yes 01/22/2020 (THE MEDICATION REQUESTED IS ON THE MED [...] N/A Patients current insurance carrier is: Payor: [employer] FFS / Plan: [employer] / Product Type: MEDICAID RISK documented in this encounter Plan of Treatment Not on file documented as of this encounter Visit Diagnoses Not on filedocumented in this encounter Care Teams Lube Technician Relationship Specialty Start Date End Date Rae Boss DO PCP - General Internal Medicine 11/20/14 08/19/20 Chuck Cervantes MD PCP - General Internal Medicine 08/20/20 11/22/20 Erika Burciaga MD [address] [place] [address] PCP - General Internal Medicine 11/23/20 03/28/21 Hollie Nicholas MD [address] [place] [address] PCP - General Internal Medicine 03/29/21 11/07/21 Karin Clemente MD [address] [place] [address] PCP - General Internal Medicine 11/08/21 Amy Block DNP [address] [place] [address] Specialist Nurse Practitioner Family 10/11/23 Carlee Marcelo MD [address] [place] [address] Specialist Cardiology 10/11/23 documented as of this encounter
--- OUTSIDE RECORDS SUMMARY | 2024-07-27 14:46 | XMS_ITS | Encounter Summary ---
Author Organization [facility] Address [address] [place] [address] Care Team Providers Care Nickel Plater Name Role Phone Rae Boss DO Primary Care Pro vider Unavailable Chuck Cervantes MD Primary Care Provider Unavailab Erika Herrera MD Primary Care Provider [phone] Hollie Nicholas MD Primary Care Provider Karin Vyas MD Primary Care Provider [phone] Amy Block DNP Unavailable [phone] Carlee Marcelo MD Unavailable [phone] Encounter Details Date Type Department Care Team Description 11/25/2018 Night Triage Doc Medical Records [address] [place] [address] Abstract, Provider Social History Tobacco Use Types [...] on filedocumented in this encounter Care Teams Nickel Plater Relationship Specialty Start Date End Date Rae Boss DO PCP - General Internal Medicine 11/20/14 08/19/20 Chuck Cervantes MD PCP - General Internal Medicine 08/20/20 11/22/20 Erika Burciaga MD [address] [place] [address] PCP - General Internal Medicine 11/23/20 03/28/21 Hollie Nicholas MD [address] [place] [address] PCP - General Internal Medicine 03/29/21 11/07/21 Karin Clemente MD [address] [place], [place] [phone] PCP - General Internal Medicine 11/08/21 Amy Block DNP [address] [place] [address] Specialist Nurse Practitioner Family 10/11/23 Carlee Marcelo MD [address] [place] [address] Specialist Cardiology 10/11/23 documented as of this encounter
--- OUTSIDE RECORDS SUMMARY | 2024-07-27 14:46 | XMS_ITS | Encounter Summary ---
Author Organization [facility] Address [address] [place] [address] Care Team Providers Care Accounts Payable Accountant Name Role Phone Rae Boss DO Primary Care Pro vider Unavailable Chuck Cervantes MD Primary Care Provider Unavailab Erika Herrera MD Primary Care Provider [phone] Hollie Nicholas MD Primary Care Provider Karin Vyas MD Primary Care Provider [phone] Amy Block DNP Unavailable Carlee Marcelo MD Unavailable [phone] Reason for Visit * Reason Onset Date Comments 11/17/2018 Encounter Details Date Type Department Care Team Description 11/17/2018 Telephone Adult Urgent Care - [address] [address] Rae Boss DO Social History Tobacco Use [...] encounter Miscellaneous Notes * Telephone Encounter - Celina Jero - 11/17/2018 3:43 PM EDT Chief Complaint/problem: Vaginal bleeding cramps / having a miscarriage How long has the patient had this problem? 2 days Pt???s BOILER WASHER provider: Archana Ochoa CNM Last menstrual period (LMP) or EDC (due date): 06/20 3rd. Baby Called Isra documented in this encounter Plan of Treatment Not on file documented as of this encounter Visit Diagnoses Not on filedocumented in this encounter Care Teams Accounts Payable Accountant Relationship Specialty Start Date End Date Rae Boss DO PCP - General Internal Medicine 11/20/14 08/19/20 Chuck Cervantes MD PCP - General Internal Medicine 08/20/20 11/22/20 Erika Burciaga MD [address] [place] [address] PCP - General Internal Medicine 11/23/20 03/28/21 Hollie Nicholas MD [address] [place] [address] PCP - General Internal Medicine 03/29/21 11/07/21 Karin Clemente MD [address] [place] [address] PCP - General Internal Medicine 11/08/21 Amy Block DNP [address] [place] [address] Specialist Nurse Practitioner Family 10/11/23 Carlee Marcelo MD [address] [place] [address] Specialist Cardiology 10/11/23 documented as of this encounter
--- OUTSIDE RECORDS SUMMARY | 2024-07-27 14:46 | XMS_ITS | Encounter Summary ---
Author Organization [facility] Address [address] [place] [address] Care Team Providers Care Pit Worker Power Shovel Name Role Phone Rae Boss DO Primary Care Pro vider Unavailable Chuck Cervantes MD Primary Care Provider Unavailab Erika Herrera MD Primary Care Provider [phone] Hollie Nicholas MD Primary Care Provider Karin Vyas MD Primary Care Provider [phone] Amy Block DNP Unavailable [phone] Carlee Marcelo MD Unavailable [phone] Encounter Details Date Type Department Care Team Description 12/31/2016 Transfer Records Medical Records [address] [place] [address] Abstract, Provider Social History Tobacco Use Types [...] on filedocumented in this encounter Care Teams Pit Worker Power Shovel Relationship Specialty Start Date End Date Rae Boss DO PCP - General Internal Medicine 11/20/14 08/19/20 Chuck Cervantes MD PCP - General Internal Medicine 08/20/20 11/22/20 Erika Burciaga MD [address] [place] [address] PCP - General Internal Medicine 11/23/20 03/28/21 Hollie Nicholas MD [address] [place], [place] [phone] PCP - General Internal Medicine 03/29/21 11/07/21 Karin Clemente MD [address] [place] [address] PCP - General Internal Medicine 11/08/21 Amy Block DNP [address] [place] [address] Specialist Nurse Practitioner Family 10/11/23 Carlee Marcelo MD [address] [place] [address] Specialist Cardiology 10/11/23 documented as of this encounter
--- OUTSIDE RECORDS SUMMARY | 2024-07-27 14:46 | XMS_ITS | Encounter Summary ---
Author Organization [facility] Address [address] [place] [address] Care Team Providers Care Grinder Setup Operator Name Role Phone Rae Boss DO Primary Care Pro vider Unavailable Chuck Cervantes MD Primary Care Provider Unavailab Erika Herrera MD Primary Care Provider [phone] Hollie Nicholas MD Primary Care Provider Karin Vyas MD Primary Care Provider [phone] Amy Block DNP Unavailable [phone] Carlee Marcelo MD Unavailable [phone] Encounter Details Date Type Department Care Team Description 10/11/2019 Night Triage Doc Medical Records [address] [place] [address] Abstract, Provider Social History Tobacco Use Types [...] on filedocumented in this encounter Care Teams Grinder Setup Operator Relationship Specialty Start Date End Date Rae Boss DO PCP - General Internal Medicine 11/20/14 08/19/20 Chuck Cervantes MD PCP - General Internal Medicine 08/20/20 11/22/20 Erika Burciaga MD [address] [place] [address] PCP - General Internal Medicine 11/23/20 03/28/21 Hollie Nicholas MD [address] [place] [address] PCP - General Internal Medicine 03/29/21 11/07/21 Karni Clemente MD [address] [place], [place] [id number] PCP - General Internal Medicine 11/08/21 Amy Block DNP [address] [place] [address] Specialist Nurse Practitioner Family 10/11/23 Carlee Marcelo MD [address] [place] [address] Specialist Cardiology 10/11/23 documented as of this encounter
--- OUTSIDE RECORDS SUMMARY | 2024-07-27 14:46 | XMS_ITS | Encounter Summary ---
Author Organization [facility] Address [address] [place] [address] Care Team Providers Care Manager Play Name Role Phone Karin Clemente MD Primary Care Provider [phone] Amy Block DNP Unavailable [phone] Carlee Marcelo MD Unavailable [phone] Reason for Visit * Reason Onset Date Comments Faxed Order 12/01/2021 [facility] Encounter Details Date Type Department Care Team Description 12/01/2021 Telephone Adult Medicine [address] [phone] Karin Clemente MD [address] [place] [address] [phone] F[facility]ed Order ([facility] Social History Tobacco Use Types Packs/Day [...] at Date Recorded Female 04/29/2021 9:38 AM EST Job Start Date Occupation Industry Not on file Not on file Not on file COVID-19 Exposure Response Date Recorded In the last 10 days, have yo u been in contact with someone who was confirmed or suspected to have Coronavirus/COVID-19? No / Unsure 11/29/2021 11:15 AM EDT documented as of this encounter Plan of Treatment Not on file documented as of this encounter Visit Diagnoses Not on filedocumented in this encounter Care Teams Manager Play Relationship Specialty Start Date End Date Karin Clemente MD [address] [place] [address] PCP - General Internal Medicine 11/08/21 Amy Block DNP [address] [place] [address] Specialist Nurse Practitioner Family 10/11/23 Carlee Marcelo MD [address] [place] [address] Specialist Cardiology 10/11/23 documented as of this encounter
--- OUTSIDE RECORDS SUMMARY | 2024-07-27 14:46 | XMS_ITS | Encounter Summary ---
Author Organization [facility] Address [address] [place] [address] Care Team Providers Care Wharf Hand Name Role Phone Rae Boss DO Primary Care Pro vider Unavailable Chuck Cervantes MD Primary Care Provider Unavailab Erika Herrera MD Primary Care Provider [phone] Hollie Nicholas MD Primary Care Provider Karin Vyas MD Primary Care Provider [phone] Amy Block DNP Unavailable [phone] Carlee Marcelo MD Unavailable [phone] Encounter Details Date Type Department Care Team Description 04/07/2020 Housekeeping And Laundry Team Leader Report Medical Records [address] [place] [address] [facility], [address] [address] Social History Tobacco Use Types [...] or suspected to have Coronavirus / COVID-19? Unable to assess 03/09/2020 12:44 PM EST documented as of this encounter Plan of Treatment Not on file documented as of this encounter Visit Diagnoses Not on filedocumented in this encounter Care Teams Wharf Hand Relationship Specialty Start Date End Date Rae Boss DO PCP - General Internal Medicine 11/20/14 08/19/20 Chuck Cervantes MD PCP - General Internal Medicine 08/20/20 11/22/20 Erika Burciaga MD [address] [place] [address] PCP - General Internal Medicine 11/23/20 03/28/21 Hollie Nicholas MD [address] [place] [address] PCP - General Internal Medicine 03/29/21 11/07/21 Karin Clemente MD [address] [place] [address] PCP - General Internal Medicine 11/08/21 Amy Block DNP [address] [place] [address] Specialist Nurse Practitioner Family 10/11/23 Carlee Marcelo MD [address] [place] [address] Specialist Cardiology 10/11/23 documented as of this encounter
--- OUTSIDE RECORDS SUMMARY | 2024-07-27 14:46 | XMS_ITS | Encounter Summary ---
Author Organization [facility] Address [address] [place] [address] Care Team Providers Care Hat Sizer Name Role Phone Rae Boss DO Primary Care Pro vider Unavailable Chuck Cervantes MD Primary Care Provider Unavailab Erika Herrera MD Primary Care Provider [phone] Hollie Nicholas MD Primary Care Provider Karin Vyas MD Primary Care Provider [phone] Amy Blcok DNP Unavailable [phone] Carlee Marcelo MD Unavailable [phone] Reason for Visit * Reason Onset Date Comments Faxed Order 04/29/2020 Encounter Details Date Type Department Care Team Description 04/29/2020 Telephone Adult [address] [id number] Rae Boss DO Faxed Order Social History Tobacco Use Types [...] have Coronavirus / COVID-19? No / Unsure 04/23/2020 2:42 PM EST documented as of this encounter Miscellaneous Notes * Telephone Encounter - Laurita Ruchi - 04/29/2020 10:58 AM EST Faxed order received from [facility]. Please sign, date and fax to [phone]. documented in this encounter Plan of Treatment Not on file documented as of this encounter Visit Diagnoses Not on filedocumented in this encounter Care Teams Hat Sizer Relationship Specialty Start Date End Date Rae Boss DO PCP - General Internal Medicine 11/20/14 08/19/20 Chuck Cervantes MD PCP - General Internal Medicine 08/20/20 11/22/20 Erika Burciaga MD [address] [place] [address] PCP - General Internal Medicine 11/23/20 03/28/21 Hollie Nicholas MD [address] [place] [address] PCP - General Internal Medicine 03/29/21 11/07/21 Karin Clemente MD [address] [place] [address] PCP - General Internal Medicine 11/08/21 Amy Block DNP [address] [place] [address] Specialist Nurse Practitioner Family 10/11/23 Carlee Marcelo MD [address] [place] [address] Specialist Cardiology 10/11/23 documented as of this encounter
--- OUTSIDE RECORDS SUMMARY | 2024-07-27 14:46 | XMS_ITS | Encounter Summary ---
Author Organization [facility] Address [address] [place] [address] Care Team Providers Care Cascara Bark Cutter Name Role Phone Hollie Nicholas MD Primary Care Provider Karin Vyas MD Primary Care Provider [phone] Amy Block DNP Unavailable [phone] Carlee Marcelo MD Unavailable [phone] Encounter Details Date Type Department Care Team Description 05/07/2021 Bail Agent Report Medical Records [address] [place] [address] Morena Allison, [place] Social History Tobacco Use Types Packs/Day [...] have Coronavirus / COVID-19? No / Unsure 04/29/2021 8:24 AM EST documented as of this encounter Plan of Treatment Not on file documented as of this encounter Visit Diagnoses Not on filedocumented in this encounter Care Teams Cascara Bark Cutter Relationship Specialty Start Date End Date Hollie Nicholas MD PCP - General Internal Medicine 03/29/21 11/07/21 Karin Clemente MD [address] [place] [address] PCP - General Internal Medicine 11/08/21 Amy Block DNP [address] [place] [address] Specialist Nurse Practitioner [facility] 10/11/23 Carlee Marcelo MD [address] [place] [address] Specialist Cardiology 10/11/23 documented as of this encounter
--- OUTSIDE RECORDS SUMMARY | 2024-07-27 14:46 | XMS_ITS | Encounter Summary ---
Author Organization [facility] Address [address] [place] [address] Care Team Providers Care Golf Club Manager Name Role Phone Karin Clemente MD Primary Care Provider [phone] Amy Block DNP Unavailable [phone] Carlee Marcelo MD Unavailable [phone] Encounter Details Date Type Department Care Team Description 10/26/2022 Refill Adult Medicine [address] [phone] Karin Clemente MD [address] [place] [address] [phone] Social History Tobacco Use Types Packs/Day Years [...] suspected to have Coronavirus/COVID-19? No / Unsure 10/25/2022 10:44 AM EDT documented as of this encounter Miscellaneous Notes * Telephone Encounter - Lindsay Snell M.A. - 10/26/2022 10:32 AM EDT Last office visit 07/15/22 Next office visit 11/10/22 with PCP Lab Results Component Value Date 25OHD 48 04/29/2021 documented in this encounter Plan of Treatment Not on file documented as of this encounter Visit Diagnoses Not on filedocumented in this encounter Care Teams Golf Club Manager Relationship Specialty Start Date End Date Karin Clemente MD [address] [place] [address] PCP - General Internal Medicine 11/08/21 Amy Block DNP [address] [place] [address] Specialist Nurse Practitioner Family 10/11/23 Carlee Marcelo MD [address] [place] [address] Specialist Cardiology 10/11/23 documented as of this encounter
--- OUTSIDE RECORDS SUMMARY | 2024-07-27 14:46 | XMS_ITS | Encounter Summary ---
Author Organization [facility] Address [address] [place] [address] Care Team Providers Care Powder Cutting Operator Name Role Phone Hollie Nicholas MD Primary Care Provider Karin Vyas MD Primary Care Provider [phone] Amy Block DNP Unavailable [phone] Carlee Marcelo MD Unavailable [phone] Reason for Visit * Reason Onset Date Comments Mychart Rx Refill 08/01/2021 Encounter Details Date Type Department Care Team Description 08/01/2021 Refill Adult Medicine [address] [id number] Ada Diamond PA-C Mychart Rx Refill Social History Tobacco Use Types Packs/Day [...] suspected to have Coronavirus/COVID-19? No / Unsure 07/21/2021 2:24 PM EDT documented as of this encounter Miscellaneous Notes * Telephone Encounter - Margi José M.A. - 08/02/2021 10:19 AM EDT Lab Results Component Value Date 25OHD 48 04/29/2021 ANGELI 06/28/2021 w/Sherry Vyas ANGELI w/PCP not on file Next OV 08/09/2021 w/Sherry Vyas documented in this encounter Plan of Treatment Not on file documented as of this encounter Visit Diagnoses Not on filedocumented in this encounter Care Teams Powder Cutting Operator Relationship Specialty Start Date End Date Hollie Nicholas MD PCP - General Internal Medicine 03/29/21 11/07/21 Karin Clemente MD [address] [place] [address] PCP - General Internal Medicine 11/08/21 Amy Block DNP [address] [place] [address] Specialist Nurse Practitioner Family 10/11/23 Carlee Marcelo MD [address] [place] [address] Specialist Cardiology 10/11/23 documented as of this encounter
--- OUTSIDE RECORDS SUMMARY | 2024-07-27 14:46 | XMS_ITS | Encounter Summary ---
Author Organization [facility] Address [address] [place] [address] Care Team Providers Care Shell Core And Molding Supervisor Name Role Phone Hollie Nicholas MD Primary Care Provider Karin Vyas MD Primary Care Provider [phone] Amy Block DNP Unavailable [phone] Carlee Marcelo MD Unavailable [phone] Reason for Visit * Reason Onset Date Comments TEST RESULTS 04/29/2021 Encounter Details Date Type Department Care Team Description 04/29/2021 Telephone OBGYN - [address] [facility] [address] [place] [address] Cherie Wilkinson, [facility] [address] [place] [address] TEST RESULTS Social History Tobacco Use Types [...] AM EST documented as of this encounter Miscellaneous Notes * Telephone Encounter - Marry Nick - 04/29/2021 2:27 PM EST Patient calling states can view her lab resutls in my chart and wants a callback explaining them (pt advsied, must allow provider to view results first, then office can call her back). Please advise documented in this encounter Plan of Treatment Not on file documented as of this encounter Visit Diagnoses Not on filedocumented in this encounter Care Teams Shell Core And Molding Supervisor Relationship Specialty Start Date End Date Hollie Nicholas MD PCP - General Internal Medicine 03/29/21 11/07/21 Karin Clemente MD [address] [place] [address] PCP - General Internal Medicine 11/08/21 Amy Block DNP [address] [place] [address] Specialist Nurse Practitioner Family 10/11/23 Carlee Marcelo MD [address] [place] [address] Specialist Cardiology 10/11/23 documented as of this encounter
--- OUTSIDE RECORDS SUMMARY | 2024-07-27 14:46 | XMS_ITS | Encounter Summary ---
Author Organization [facility] Address [address] [place] [address] Care Team Providers Care Tennis Ball Coverer Hand Name Role Phone Karin Clemente MD Primary Care Provider [phone] Amy Block DNP Unavailable [phone] Carlee Marcelo MD Unavailable [phone] Encounter Details Date Type Department Care Team Description 02/15/2023 Pt. Non Urgent Medical Question Adult Medicine [address] [address] Radha Rendon MD [address] [place] [address] [phone] Social History Tobacco Use Types Packs/Day Years [...] encounter Miscellaneous Notes * Telephone Encounter - Cindy Colorado - 02/15/2023 8:49 AM ESTFrom: Krsytal Deforge To: Crista Rendon Sent: 02/15/2023 8:13 AM EST Subject: Medication I went to [facility] and they said there was only one prescription that was sent and have no idea what theother ear drop is for the ear with the mineral oil documented in this encounter Plan of Treatment Not on file documented as of this encounter Visit Diagnoses Not on filedocumented in this encounter Care Teams Tennis Ball Coverer Hand Relationship Specialty Start Date End Date Karin Clemente MD [address] [place] [address] PCP - General Internal Medicine 11/08/21 Amy Block DNP [address] [place] [address] Specialist Nurse Practitioner Family 10/11/23 Carlee Marcelo MD [address] [place] [address] Specialist Cardiology 10/11/23 documented as of this encounter
--- OUTSIDE RECORDS SUMMARY | 2024-07-27 14:46 | XMS_ITS | Encounter Summary ---
Author Organization [facility] Address [address] [place] [address] Care Team Providers Care Receivable Executive Name Role Phone Rae Boss DO Primary Care Pro vider Unavailable Chuck Cervantes MD Primary Care Provider Unavailab Erika Herrera MD Primary Care Provider [phone] Hollie Nicholas MD Primary Care Provider Karin Vyas MD Primary Care Provider [phone] Amy Block DNP Unavailable [phone] Carlee Marcelo MD Unavailable [phone] Reason for Visit * Reason Onset Date Comments refill request 08/31/2018 Encounter Details Date Type Department Care Team Description 08/31/2018 Refill Adult Medicine [address] [phone] Rae Boss DO refill request Social History [...] Telephone Encounter - Rae Parker DO - 08/31/2018 3:44 PM EDT Not filled, no documentation of low levels * Telephone Encounter - Lindsay Snell M.A. - 08/31/2018 3:[address] Nancy Parker, Pt use to get this from Charmaine Carter MD (neuro) Pt states she no longer sees her. Will you fill? * Telephone Encounter - Katey Long - 08/31/2018 2:20 PM EDT Patient would like script to be: E-PRESCRIBED/FAXED TO PHARMACY When was the patients last office visit in Adult Medicine?: 08/13/18 When was the last time the patient saw their PCP? Same as above Does patient have an upcoming appointment? Yes 09/13/18 (THE MEDICATION IS NOT ON THE MED LIST AND IS IDENTIFIED BELOW): {MED LIST:33678) Med name: riboflavin 400 mg Dosage: 400 mg # of tablets: 30 Local pharmacy with request for 30 -day supply Instructions: Take one tablet daily Did you check the pharmacy information above?: YES Patients current insurance carrier: Payor: [employer] FFS / Plan: [employer] / Product Type: MEDICAID RISK documented in this encounter Plan of Treatment Not on file documented as of this encounter Visit Diagnoses Not on filedocumented in this encounter Care Teams Receivable Executive Relationship Specialty Start Date End Date Rae Boss DO PCP - General Internal Medicine 11/20/14 08/19/20 Chuck Cervantes MD PCP - General Internal Medicine 08/20/20 11/22/20 Erika Burciaga MD [address] [place] [address] PCP - General Internal Medicine 11/23/20 03/28/21 Hollie Nicholas MD [address] [place], [place] [id number] PCP - General Internal Medicine 03/29/21 11/07/21 Karin Clemente MD [address] [place] [address] PCP - General Internal Medicine 11/08/21 Amy Block DNP [address] [place] [address] Specialist Nurse Practitioner Family 10/11/23 Carlee Marcelo MD [address] [place] [address] Specialist Cardiology 10/11/23 documented as of this encounter
--- OUTSIDE RECORDS SUMMARY | 2024-07-27 14:46 | XMS_ITS | Encounter Summary ---
Author Organization [facility] Address [address] [place] [address] Care Team Providers Care Nitrocellulose Maker Name Role Phone Hollie Nicholas MD Primary Care Provider Karin Vyas MD Primary Care Provider [phone] Amy Block DNP Unavailable [phone] Carlee Marcelo MD Unavailable [phone] Reason for Visit * Reason Comments E-prescribe Rx Request Encounter Details Date Type Department Care Team Description 08/01/2021 Refill Adult Medicine [address] [id number] Ada Diamond PA-C E-prescribe Rx Request Social History Tobacco [...] In the last 10 days, have chris toure been in contact with someone who was confirmed or suspected to have Coronavirus/COVID-19? No / Unsure 07/21/2021 2:24 PM EDT documented as of this encounter Miscellaneous Notes * Telephone Encounter - Sachi Wright M.A. - 08/02/2021 9:54 AM EDT Lab Results Component Value Date NA 139 04/29/2021 K 4.1 04/29/2021 CO2 26 04/29/2021 CL 107 04/29/2021 BUN 12 04/29/2021 CREAT 0.90 04/29/2021 GLU 62 04/29/2021 CA 9.0 04/29/2021 GFR > 60 04/29/2021 Pending appt with Sherry Vyas PAC 08/09/21 Last appt with Sherry 06/2021 documented in this encounter Plan of Treatment Not on file documented as of this encounter Visit Diagnoses Not on filedocumented in this encounter Care Teams Nitrocellulose Maker Relationship Specialty Start Date End Date Hollie Nicholas MD PCP - General Internal Medicine 03/29/21 11/07/21 Karin Clemente MD [address] [place] [address]85 PCP - General Internal Medicine 11/08/21 Amy Block DNP [address] [place] [address] 63526 Specialist Nurse Practitioner [facility] 10/11/23 Carlee Marcelo MD [address] [place] [address] 11314 Specialist Cardiology 10/11/23 documented as of this encounter
--- OUTSIDE RECORDS SUMMARY | 2024-07-27 14:46 | XMS_ITS | Encounter Summary ---
Author Organization [facility] Address [address] [place] [address] Care Team Providers Care Director Of Graduate Admissions Name Role Phone Rae Boss DO Primary Care Pro vider Unavailable Chuck Cervantes MD Primary Care Provider Unavailab Erika Herrera MD Primary Care Provider [phone] Hollie Nicholas MD Primary Care Provider Karin Vyas MD Primary Care Provider [phone] Amy Block DNP Unavailable [phone] Carlee Marcelo MD Unavailable [phone] Reason for Visit * Reason Onset Date Comments hospital follow up 09/05/2018 Patient needs to be rescheduled Encounter Details Date Type Department Care Team Description 09/05/2018 Telephone Gastroenterology - [address] [place] [address] Kelsey Azul MD hospital follow up (Patient needs to be rescheduled) Social History Tobacco Use Types Packs/Day Years [...] encounter Miscellaneous Notes * Telephone Encounter - Leana Hartmann M.A. - 09/05/2018 8:08 AM EDT Spoke with patient she is aware that her appointment needs to be cancelled Dr. Azul can not be double booked. Patient will call back she needed to get her son on the bus and could not reschedule at this time.map documented in this encounter Plan of Treatment Not on file documented as of this encounter Visit Diagnoses Not on filedocumented in this encounter Care Teams Director Of Graduate Admissions Relationship Specialty Start Date End Date Rae Boss DO PCP - General Internal Medicine 11/20/14 08/19/20 Chuck Cervantes MD PCP - General Internal Medicine 08/20/20 11/22/20 Erika Burciaga MD [address] [place] [address]57 PCP - General Internal Medicine 11/23/20 03/28/21 Hollie Nicholas MD [address] [place] [address] 23702 PCP - General Internal Medicine 03/29/21 11/07/21 Karin Clemente MD [address] [place] [address] 11235 PCP - General Internal Medicine 11/08/21 Amy Block DNP [address] [place] [address] 61031 Specialist Nurse Practitioner Family 10/11/23 Carlee Marcelo MD [address] [place] [address] Specialist Cardiology 10/11/23 documented as of this encounter
--- OUTSIDE RECORDS SUMMARY | 2024-07-27 14:46 | XMS_ITS | Encounter Summary ---
Author Organization [facility] Address [address] [place] [address] Care Team Providers Care Jewelry Cutter Name Role Phone Karin Clemente MD Primary Care Provider [phone] Amy Block DNP Unavailable [phone] Carlee Marcelo MD Unavailable [phone] Reason for Visit * Reason Onset Date Comments REFERRAL 11/10/2022 REFERRAL TO [facility] ALL[facility]ICAL [facility]MMUNOLOGY WAS PROCESSED 11/09/2022. PATIENT NOTIFIED BY PHONE AND LETTER WITH ORDER FOR APPOINTMENT TO BE MADE, CALL TO [facility] IMMUNOLOGY CLINIC PATIENT REGISTERED INCLUDING FAX TO CLINIC WITH ORDER AND BENEFITS, WILL CALL IF NEED NOTES. PATIENT HAS NOW DECIDED DOES NOT WANT TO TRAVEL THAT FAR. PATIENT HAS LIST FROM HER INSURANCE COMPANY OF PARTICIPATING ALLERGY AND IMMUNOLOGY PHYSICIANS, BUT HAS NOT CALLED ANY PROVIDERS ON LIST. Encounter Details Date Type Department Care Team Description 11/10/2022 Telephone Internal Medicine - [place] [address] [facility], [address] [place] [address] Karin Clemente MD [address] [place] [address] [phone] REFERRAL (REFERRAL TO [facility]GY [facility] CLINICAL IMMUNOLOGY WAS PROCESSED 11/09/2022. PATIENT NOTIFIED BY PHONE AND LETTER WITH ORDER FOR APPOINTMENT TO BE MADE, CALL TO [facility] CLINIC PATIENT REGISTERED INCLUDING FAX TO CLINIC WITH ORDER AND BENEFITS, WILL CALL IF NEED NOTES. PATIENT HAS NOW DECIDED DOES NOT WANT TO TRAVEL THAT FAR. PATIENT HAS LIST FROM HER INSURANCE COMPANY OF PARTICIPATING ALLERGY AND IMMUNOLOGY PHYSICIANS, BUT HAS NOT CALLED ANY PROVIDERS ON LIST. ) Social History Tobacco Use Types Packs/Day [...] suspected to have Coronavirus/COVID-19? No / Unsure 11/01/2022 9:23 AM EDT documented as of this encounter Miscellaneous Notes * Telephone Encounter - Karin Clemente MD - 11/10/2022 12:42 PM EDT Noted, I will also forward to provider who ordered the referral * Telephone Encounter - Lynn Aparicio - 11/10/2022 10:58 AM EDT REFERRAL TO [facility]GY [facility] CL[facility]ICAL IMMUNOLOGY WAS PROCESSED 11/09/2022. PATIENT NOTIFIED BY PHONE AND LETTER WITH ORDER FOR APPOINTMENT TO BE MADE, CALL TO [facility] CL[facility]ICPATIENT REGISTERED INCLUDING FAX TO CLINIC WITH ORDER AND BENEFITS, WILL CALL IF NEED NOTES. PATIENT HAS NOW DECIDED DOES NOT WANT TO TRAVEL THAT FAR. PATIENT HAS LIST FROM HER INSURANCE COMPANY OF PARTICIPATING ALLERGY AND IMMUNOLOGY PHYSICIANS, BUT HAS NOT CALLED ANY PROVIDERS ON LIST. PATIENT [facility] [phone] IF FINDS ALLERGY AND IMMUNOLOGY PHYSICIAN CLOSER TO HOME THAT PARTICIPATES WITH [employer]. documented in this encounter Plan of Treatment Not on file documented as of this encounter Visit Diagnoses Not on filedocumented in this encounter Care Teams Jewelry Cutter Relationship Specialty Start Date End Date Karin Clemente MD [address] [place] [address] 36978 PCP - General Internal Medicine 11/08/21 Amy Block DNP [address] [place] [address] 92944 Specialist Nurse Practitioner Family 10/11/23 Carlee Marcelo MD [address] [place] [address] 84962 Specialist Cardiology 10/11/23 documented as of this encounter
--- OUTSIDE RECORDS SUMMARY | 2024-07-27 14:46 | XMS_ITS | Encounter Summary ---
Author Organization [facility] Address [address] [place] [address] Care Team Providers Care Pharmacy Ancillary Name Role Phone Rae Boss DO Primary Care Pro vider Unavailable Chuck Cervantes MD Primary Care Provider Unavailab rEika Herrera MD Primary Care Provider [phone] Hollie Nicholas MD Primary Care Provider Karin Vyas MD Primary Care Provider [phone] Amy Block DNP Unavailable [phone] Carlee Marcelo MD Unavailable [phone] Reason for Visit * Reason Onset Date Comments refill request 02/07/2020 hydrocortisone ( WESTCORT) 0.2 % cream Encounter Details Date Type Department Care Team Description 02/07/2020 Refill Dermatology - [address] [address] Sophia Ferrera PA-C refill request (hydrocortisone (WESTCORT) 0.2 % cream) Social History Tobacco Use Types Packs/Day Years [...] have Coronavirus / COVID-19? No / Unsure 02/06/2020 3:35 PM EST documented as of this encounter Miscellaneous Notes * Telephone Encounter - Sophia Ferrera - 02/07/2020 3:44 PM EST Approved refill of Westcort cream 0.2% * Telephone Encounter - Mariella Lagunas M.A. - 02/07/2020 3:34 PM EST ANGELI: 01/30/19 F/U: no f.u apt * Telephone Encounter - Deepa Woodall - 02/07/2020 2:05 PM EST Patient would like script to be: E-PRESCRIBED/FAXED TO PHARMACY WHEN WAS THE PATIENT'S LAST APPOINTMENT IN ADULT MEDICINE? 01/30/19 WHEN WAS THE LAST TIME THE PATIENT SAW THEIR PCP? Same as above Does patient have an upcoming appointment? No [...] N/A Patients current insurance carrier is: Payor: [employer] FFS / Plan: [employer] ALLIANCE / Product Type: MEDICAID RISK documented in this encounter Plan of Treatment Not on file documented as of this encounter Visit Diagnoses Not on filedocumented in this encounter Care Teams Pharmacy Ancillary Relationship Specialty Start Date End Date Rae Boss DO PCP - General Internal Medicine 11/20/14 08/19/20 Chuck Cervantes MD PCP - General Internal Medicine 08/20/20 11/22/20 Erika Burciaga MD [address] [place] [address] PCP - General Internal Medicine 11/23/20 03/28/21 Hollie Nicholas MD [address] [place] [address] PCP - General Internal Medicine 03/29/21 11/07/21 Karin Clemente MD [address] [place] [address] PCP - General Internal Medicine 11/08/21 Amy Block DNP [address] [place] [address] Specialist Nurse Practitioner Family 10/11/23 Carlee Marcelo MD [address] [place] [address] Specialist Cardiology 10/11/23 documented as of this encounter
--- OUTSIDE RECORDS SUMMARY | 2024-07-27 14:46 | XMS_ITS | Encounter Summary ---
Author Organization [facility] Address [address] [place] [address] Care Team Providers Care Public Bath Attendant Name Role Phone Rae Boss DO Primary Care Pro vider Unavailable Chuck Cervantes MD Primary Care Provider Unavailab Erika Herrera MD Primary Care Provider [phone] Hollie Nicholas MD Primary Care Provider Karin Vyas MD Primary Care Provider [phone] Amy Block DNP Unavailable [phone] Carlee Marcelo MD Unavailable [phone] Encounter Details Date Type Department Care Team Description 09/20/2018 Night Triage Doc Medical Records [address] [place] [address] Abstract, Provider Social History Tobacco Use Types [...] on filedocumented in this encounter Care Teams Public Bath Attendant Relationship Specialty Start Date End Date Rae Boss DO PCP - General Internal Medicine 11/20/14 08/19/20 Chuck Cervantes MD PCP - General Internal Medicine 08/20/20 11/22/20 Erika Burciaga MD [address] [place] [address] PCP - General Internal Medicine 11/23/20 03/28/21 Hollie Nicholas MD [address] [place] [address] PCP - General Internal Medicine 03/29/21 11/07/21 Karin Clemente MD [address] [place], [place] [phone] PCP - General Internal Medicine 11/08/21 Amy Block DNP [address] [place] [address] 14261 Specialist Nurse Practitioner Family 10/11/23 Carlee Marcelo MD [address] [place] [address]10 Specialist Cardiology 10/11/23 documented as of this encounter
--- OUTSIDE RECORDS SUMMARY | 2024-07-27 14:46 | XMS_ITS | Encounter Summary ---
Author Organization [facility] Address [address] [place] [address] Care Team Providers Care String Top Sealer Name Role Phone Rae Boss DO Primary Care Pro vider Unavailable Chuck Cervantes MD Primary Care Provider Unavailab Erika Herrera MD Primary Care Provider [phone] Hollie Nicholas MD Primary Care Provider UnaKarin Nation MD Primary Care Provider [phone] Amy Block DNP Unavailable [phone] Carlee Marcelo MD Unavailable [phone] Reason for Visit * Reason Onset Date Comments refill request 08/27/2019 Encounter Details Date Type Department Care Team Description 08/27/2019 Refill OBGYN - [address] [facility] [address] [place] [address] Archana Ochoa [facility] [address] [place] [address] refill request Social History Tobacco [...] encounter Miscellaneous Notes * Telephone Encounter - Cristina Garcia - 08/27/2019 3:19 PM EDT WHEN WAS THE PATIENTS LAST ANNUAL TEAM GUIDE EXAM? 05/13/2019 Does patient have an upcoming [...] the end of the day? NO Payor: [employer] FFS / Plan: [employer] ALLIANCE / Product Type: MEDICAID RISK documented in this encounter Plan of Treatment Not on file documented as of this encounter Visit Diagnoses Not on filedocumented in this encounter Care Teams String Top Sealer Relationship Specialty Start Date End Date Rae Boss DO PCP - General Internal Medicine 11/20/14 08/19/20 Chuck Cervantes MD PCP - General Internal Medicine 08/20/20 11/22/20 Erika Burciaga MD [address] [place] [address] PCP - General Internal Medicine 11/23/20 03/28/21 Hollie Nicholas MD [address] [place] [address]6498 PCP - General Internal Medicine 03/29/21 11/07/21 Karin Clemente MD [address] [place] [address]686 PCP - General Internal Medicine 11/08/21 Amy Block DNP [address] [place] [address]994 Specialist Nurse Practitioner Family 10/11/23 Carlee Marcelo MD [address] [place] [address] 24744 Specialist Cardiology 10/11/23 documented as of this encounter
--- OUTSIDE RECORDS SUMMARY | 2024-07-27 14:46 | XMS_ITS | Encounter Summary ---
Author Organization [facility] Address [address] [place] [address] Care Team Providers Care Traffic Warehouse Supervisor Name Role Phone Rae Boss DO Primary Care Pro vider Unavailable Chuck Cervantes MD Primary Care Provider Unavailab Erika Herrera MD Primary Care Provider [phone] Hollie Nicholas MD Primary Care Provider Karin Vyas MD Primary Care Provider [phone] Amy Block DNP Unavailable [phone] Carlee Marcelo MD Unavailable [phone] Reason for Visit * Reason Comments E-prescribe Rx Request Encounter Details Date Type Department Care Team Description 12/26/2019 Refill Adult Medicine [address] [phone] Laurita Ayala PA-C E-prescribe Rx Request Social History Tobacco [...] Miscellaneous Notes * Telephone Encounter - Laurita Ayala PA-C - 12/26/2019 2:04 PM EDT This was prescribed initially for an acute issue. Needs an appt for reeval if refill on ibuprofen is needed. Thank you Laurita Ayala PA-C * Telephone Encounter - Yolie Vargas C.M.A. - 12/26/2019 11:46 AM EDT Lat visit with PCP 10/07/19 Appt 03/2020. * Telephone Encounter - Evelin [place] - 12/26/2019 11:34 AM EDT Patient would like script to be: E-PRESCRIBED/FAXED TO PHARMACY WHEN WAS THE PATIENT'S LAST APPOINTMENT IN ADULT MEDICINE? 10/10/2019 WHEN WAS THE LAST TIME THE PATIENT [...] N/A Patients current insurance carrier is: Payor: [employer] FFS / Plan: [employer] ALLIANCE / Product Type: MEDICAID RISK documented in this encounter Plan of Treatment Not on file documented as of this encounter Visit Diagnoses Not on filedocumented in this encounter Care Teams Traffic Warehouse Supervisor Relationship Specialty Start Date End Date Rae Boss DO PCP - General Internal Medicine 11/20/14 08/19/20 Chuck Cervantes MD PCP - General Internal Medicine 08/20/20 11/22/20 Erika Burciaga MD [address] [place] [address]863 PCP - General Internal Medicine 11/23/20 03/28/21 Hollie Nicholas MD [address] [place] [address] 25332 PCP - General Internal Medicine 03/29/21 11/07/21 Karin Clemente MD [address] [place] [address] 94366 PCP - General Internal Medicine 11/08/21 Amy Block DNP [address] [place] [address] 80454 Specialist Nurse Practitioner Family 10/11/23 Carlee Marcelo MD [address] [place] [address] 07528 Specialist Cardiology 10/11/23 documented as of this encounter
--- OUTSIDE RECORDS SUMMARY | 2024-07-27 14:46 | XMS_ITS | Encounter Summary ---
Author Organization [facility] Address [address] [place] [address] Care Team Providers Care Managed Care Liaison Name Role Phone Karin Clemente MD Primary Care Provider [phone] Amy Block DNP Unavailable [phone] Carlee Marcelo MD Unavailable [phone] Encounter Details Date Type Department Care Team Description 11/22/2022 Refill Pulmonology - [place] 175 [facility] [address] [place] [address] Shelly Ruiz APRN 175 [facility] [address] [place] [phone] Social History Tobacco Use Types Packs/Day Years [...] suspected to have Coronavirus/COVID-19? No / Unsure 11/22/2022 1:02 PM EDT documented as of this encounter Miscellaneous Notes * Telephone Encounter - Shelly Ruiz APRN - 11/22/2022 11:51 AM EDT Please let know patient to have her PCP prescribed it. She is already on antihistmines. * Telephone Encounter - Quang Cosme CMA - 11/22/2022 11:42 AM EDT ANGELI 11/01/22 NOV 02/07/23 documented in this encounter Plan of Treatment Not on file documented as of this encounter Visit Diagnoses Diagnosis H/O multiple allergies documented in this encounter Care Teams Managed Care Liaison Relationship Specialty Start Date End Date Karin Clemente MD [address] [place] [address] 63047 PCP - General Internal Medicine 11/08/21 Amy Block DNP [address] [place] [address] 07225 Specialist Nurse Practitioner Family 10/11/23 Carlee Marcelo MD [address] [place] [address] 88370 Specialist Cardiology 10/11/23 documented as of this encounter
--- OUTSIDE RECORDS SUMMARY | 2024-07-27 14:46 | XMS_ITS | Encounter Summary ---
Author Organization [facility] Address [address] [place] [address] Care Team Providers Care Block Greaser Name Role Phone Karin Clemente MD Primary Care Provider [phone] Amy Block DNP Unavailable [phone] Carlee Marcelo MD Unavailable [phone] Encounter Details Date Type Department Care Team Description 12/23/2022 Dewaterer Operator Report Medical Records [address] [place] [address] [phone] Social History Tobacco Use Types Packs/Day Years [...] on filedocumented in this encounter Care Teams Block Greaser Relationship Specialty Start Date End Date Karin Clemente MD [address] [place] [address]103 PCP - General Internal Medicine 11/08/21 Amy Block DNP [address] [place] [address] [phone] Specialist Nurse Practitioner Family 10/11/23 Carlee Marcelo MD [address] [place] [address] [phone] Specialist Cardiology 10/11/23 documented as of this encounter
--- OUTSIDE RECORDS SUMMARY | 2024-07-27 14:46 | XMS_ITS | Encounter Summary ---
Author Organization [facility] Address [address] [place] [address] Care Team Providers Care Injection Molding Machine Setter Name Role Phone Karin Clemente MD Primary Care Provider [phone] Amy Block DNP Unavailable [phone] Carlee Marcelo MD Unavailable [phone] Encounter Details Date Type Department Care Team Description 10/28/2022 Pt. Non Urgent Medical Question Adult Medicine [address] [phone] Karin Clemente MD [address] [place] [address] [phone] Social History Tobacco Use Types Packs/Day Years [...] on filedocumented in this encounter Care Teams Injection Molding Machine Setter Relationship Specialty Start Date End Date Karin Clemente MD [address] [place] [address] 86147 PCP - General Internal Medicine 11/08/21 Amy Block DNP [address] [place] [address] 06357 Specialist Nurse Practitioner Family 10/11/23 Carlee Marcelo MD [address] [place] [address] 24664 Specialist Cardiology 10/11/23 documented as of this encounter
--- OUTSIDE RECORDS SUMMARY | 2024-07-27 14:47 | XMS_ITS | Encounter Summary ---
Author Organization [facility] Address [address] [place] [address] Care Team Providers Care Aircraft Engine Mechanic Supervisor Name Role Phone Karin Clemente MD Primary Care Provider [phone] Amy Block DNP Unavailable [phone] Carlee Marcelo MD Unavailable [phone] Reason for Visit * Reason Comments E-prescribe Rx Request Encounter Details Date Type Department Care Team Description 09/04/2023 Refill Pulmonology - [place] 175 [facility] [address] [place] [address] Shelly Ruiz APRN 175 [facility] [address] [place] [address] E-prescribe Rx Request Social History [...] encounter Miscellaneous Notes * Telephone Encounter - Gabriela Hassan - 09/04/2023 10:40 AM EDT ANGELI 06/06/23 NOV 12/12/23 documented in this encounter Plan of Treatment Not on file documented as of this encounter Visit Diagnoses Diagnosis Allergic rhinitis, unspecified seasonality, unspecified trigger documented in this encounter Care Teams Aircraft Engine Mechanic Supervisor Relationship Specialty Start Date End Date Karin Cleemnte MD [address] [place] [address] 78055 PCP - General Internal Medicine 11/08/21 Amy Block DNP [address] [place] [address] 72982 Specialist Nurse Practitioner Family 10/11/23 Carlee Marcelo MD [address] [place] [address] 18092 Specialist Cardiology 10/11/23 documented as of this encounter
--- OUTSIDE RECORDS SUMMARY | 2024-07-27 14:47 | XMS_ITS | Encounter Summary ---
Author Organization [facility] Address [address] [place] [address] Care Team Providers Care Photoradio Operator Name Role Phone Rae Boss DO Primary Care Pro vider Unavailable Chuck Cervantes MD Primary Care Provider Unavailab Erika Herrera MD Primary Care Provider [phone] Hollie Nicholas MD Primary Care Provider Karin Vyas MD Primary Care Provider [phone] Amy Block DNP Unavailable [phone] Carlee Marcelo MD Unavailable Reason for Visit * Reason Onset Date Comments Faxed Order 07/21/2020 Encounter Details Date Type Department Care Team Description 07/21/2020 Telephone Adult [address] [phone] Rae Boss DO Faxed Order Social History [...] have Coronavirus / COVID-19? No / Unsure 07/23/2020 2:15 PM EDT documented as of this encounter Miscellaneous Notes * Telephone Encounter - Katey Long - 07/21/2020 2:50 PM EDT Fax orders from [facility] , please sign and fax back. documented in this encounter Plan of Treatment Not on file documented as of this encounter Visit Diagnoses Not on filedocumented in this encounter Care Teams Photoradio Operator Relationship Specialty Start Date End Date Rae Boss DO PCP - General Internal Medicine 11/20/14 08/19/20 Chuck Cervantes MD PCP - General Internal Medicine 08/20/20 11/22/20 Erika Burciaga MD [address] [place] [address] PCP - General Internal Medicine 11/23/20 03/28/21 Hollie Nicholas MD [address] [place] [address] 06838 PCP - General Internal Medicine 03/29/21 11/07/21 Karin Clemente MD [address] [place], [place] [phone] PCP - General Internal Medicine 11/08/21 Amy Block DNP [address] [place] [address] Specialist Nurse Practitioner Family 10/11/23 Carlee Marcelo MD [address] [place] [address] 99898 Specialist Cardiology 10/11/23 documented as of this encounter
--- OUTSIDE RECORDS SUMMARY | 2024-07-27 14:47 | XMS_ITS | Encounter Summary ---
Author Organization [facility] Address [address] [place] [address] Care Team Providers Care Fitness/Wellness Director Name Role Phone Judy Bearden MD Primary Care Provider UnaRae De La Rosa DO Primary Care Pro vider Unavailable Chuck Cervantes MD Primary Care Provider Unavailab Erika Herrera MD Primary Care Provider [phone] Hollie Nicholas MD Primary Care Provider Unavai Karin Maldonado MD Primary Care Provider [phone] Amy Block DNP Unavailable [phone] Carlee Marcelo MD Unavailable [phone] Encounter Details Date Type Department Care Team Description 06/04/2014 Litigation Attorney Associate Report Medical Records [address] [place] [address] Daphne Starr MD Social History Tobacco Use Types Packs/Day [...] on filedocumented in this encounter Care Teams Fitness/Wellness Director Relationship Specialty Start Date End Date Judy Bearden MD PCP - General Internal Medicine 06/02/14 11/19/14 Rae Boss DO PCP - General Internal Medicine 11/20/14 08/19/20 Chuck Cervantes MD PCP - General Internal Medicine 08/20/20 11/22/20 Erika Burciaga MD [address] [place] [id number] PCP - General Internal Medicine 11/23/20 03/28/21 Hollie Nicholas MD [address] [place] [id number] PCP - General Internal Medicine 03/29/21 11/07/21 Karin Clemente MD [address] [place] [phone] PCP - General Internal Medicine 11/08/21 Amy Block DNP [address] [place] [address] Specialist Nurse Practitioner Family 10/11/23 Carlee Marcelo MD [address] [place] [id number] Specialist Cardiology 10/11/23 documented as of this encounter
--- OUTSIDE RECORDS SUMMARY | 2024-07-27 14:47 | XMS_ITS | Encounter Summary ---
Author Organization [facility] Address [address] [place] [address] Care Team Providers Care Demand Generation Manager Name Role Phone Rae Boss DO Primary Care Pro vider Unavailable Chuck Cervantes MD Primary Care Provider Unavailab Erika Herrera MD Primary Care Provider [phone] Hollie Nicholas MD Primary Care Provider Karin Vyas MD Primary Care Provider [phone] Amy Block DNP Unavailable [phone] Carlee Marcelo MD Unavailable [phone] Encounter Details Date Type Department Care Team Description 10/18/2016 Night Triage Doc Medical Records [address] [place] [address] Abstract, Provider Social History Tobacco Use Types [...] on filedocumented in this encounter Care Teams Demand Generation Manager Relationship Specialty Start Date End Date Rae Boss DO PCP - General Internal Medicine 11/20/14 08/19/20 Chuck Cervantes MD PCP - General Internal Medicine 08/20/20 11/22/20 Erika Burciaga MD [address] [place] [address] PCP - General Internal Medicine 11/23/20 03/28/21 Hollie Nicholas MD [address] [place] [address] PCP - General Internal Medicine 03/29/21 11/07/21 Karin Clemente MD [address] [place], [place] [phone] PCP - General Internal Medicine 11/08/21 Amy Block DNP [address] [place] [phone] Specialist Nurse Practitioner Family 10/11/23 Carlee Marcelo MD [address] [place] [phone] Specialist Cardiology 10/11/23 documented as of this encounter
--- OUTSIDE RECORDS SUMMARY | 2024-07-27 14:47 | XMS_ITS | Encounter Summary ---
Author Organization [facility] Address [address] [place] [address] Care Team Providers Care Rat Culturist Name Role Phone Karin Clemente MD Primary Care Provider [phone] Amy Block DNP Unavailable [phone] Carlee Marcelo MD Unavailable [phone] Encounter Details Date Type Department Care Team Description 04/13/2023 Telephone [facility] [address] [place] [address] Avtar Williamson PA-C [address] [place], [place] [phone] Social History Tobacco Use Types Packs/Day Years [...] on filedocumented in this encounter Care Teams Rat Culturist Relationship Specialty Start Date End Date Karin Clemente MD [address] [place] [phone] PCP - General Internal Medicine 11/08/21 Amy Block DNP [address] [place] [phone] Specialist Nurse Practitioner Family 10/11/23 Carlee Marcelo MD [address] [place] [phone] Specialist Cardiology 10/11/23 documented as of this encounter
--- OUTSIDE RECORDS SUMMARY | 2024-07-27 14:47 | XMS_ITS | Encounter Summary ---
Author Organization [facility] Address [address] [place] [address] Care Team Providers Care Floor Press Operator Name Role Phone Karin Clemente MD Primary Care Provider [phone] Amy Block DNP Unavailable [phone] Carlee Marcelo MD Unavailable [phone] Reason for Visit * Reason Onset Date Comments TEST RESULTS 01/11/2022 Encounter Details Date Type Department Care Team Description 01/11/2022 Telephone Adult Medicine [facility] [address] [place] [address] [phone] Karin Clemente MD [address] [place] [address] [phone] TEST RESULTS Social History Tobacco Use Types [...] suspected to have Coronavirus/COVID-19? No / Unsure 01/10/2022 1:17 PM EDT documented as of this encounter Miscellaneous Notes * Telephone Encounter - Karin Clemente MD - 01/11/2022 4:56 PM EDT Results of the blood work have been discussed with the patient via phone call. * Telephone Encounter - Yariel Stock - 01/11/2022 10:44 AM EDT Inform patient: ANY URGENT OR ABNORMAL RESULTS WIILL RESULT IN A CALL BACK TO THE PATIENT SUZETTE. Type of test: All labs from 01/10/2022 Date test was performed: 01/10/2022 Where was the test performed: [facility] Who ordered this test?: Dr. Karin Clemente Is the doctor here today?: YES Can the message wait until the doctor returns?: NO IF PATIENT'S PCP IS NOT IN INSTRUCT PATIENT THAT THEY WILL RECEIVE A CALL BACK WHEN THE PCP IS IN THE OFFICE NEXT. documented in this encounter Plan of Treatment Not on file documented as of this encounter Visit Diagnoses Not on filedocumented in this encounter Care Teams Floor Press Operator Relationship Specialty Start Date End Date Karin Clemente MD [address] [place] [phone] PCP - General Internal Medicine 11/08/21 Amy Block DNP [address] [place] [phone] Specialist Nurse Practitioner Family 10/11/23 Carlee Marcelo MD [address] [place] [address] Specialist Cardiology 10/11/23 documented as of this encounter
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
--- OUTSIDE RECORDS SUMMARY | 2024-07-27 14:47 | XMS_ITS | Encounter Summary ---
Author Organization [facility] Address [address] [place] [address] Care Team Providers Care Lead Web Developer Name Role Phone Rae Boss DO Primary Care Pro vider Unavailable Chuck Cervantes MD Primary Care Provider Unavailab Erika Herrera MD Primary Care Provider [phone] Hollie Nicholas MD Primary Care Provider Karin Vyas MD Primary Care Provider [phone] Amy Block DNP Unavailable [phone] Carlee Marcelo MD Unavailable [phone] Reason for Visit * Reason Comments E-prescribe Rx Request Encounter Details Date Type Department Care Team Description 08/15/2020 Refill Adult Medicine [address] [phone] Rae Boss DO E-prescribe Rx Request Social [...] Telephone Encounter - Lindsay Snell M.A. - 08/19/2020 7:43 AM EDT Last office visit 06/24/20 * Telephone Encounter - Mel Reyna - 08/16/2020 10:03 AM EDT Patient would like script to be: E-PRESCRIBED/FAXED TO PHARMACY WHEN WAS THE PATIENT'S LAST APPOINTMENT IN ADULT MEDICINE? 06/24/2020 WHEN WAS THE LAST TIME THE PATIENT SAW THEIR PCP? Same as above Does patient have an upcoming appointment? No-unable to reach left [facility] to call for appointment due to refill request. Appt due (THE MEDICATION REQUESTED IS ON THE MED [...] N/A Patients current insurance carrier is: Payor: [employer] / Plan: [email or web address] / Product Type: MEDICAID RISK documented in this encounter Plan of Treatment Not on file documented as of this encounter Visit Diagnoses Not on filedocumented in this encounter Care Teams Lead Web Developer Relationship Specialty Start Date End Date Rae Boss DO PCP - General Internal Medicine 11/20/14 08/19/20 Chuck Cervantes MD PCP - General Internal Medicine 08/20/20 11/22/20 Erika Burciaga MD [address] [place] [address] PCP - General Internal Medicine 11/23/20 03/28/21 Hollie Nicholas MD [address] [place] [address] PCP - General Internal Medicine 03/29/21 11/07/21 Karin Clemente MD [address] [place] [address] PCP - General Internal Medicine 11/08/21 Amy Block DNP [address] [place] [address] Specialist Nurse Practitioner Family 10/11/23 Carlee Marcelo MD [address] [place] [address] Specialist Cardiology 10/11/23 documented as of this encounter
--- OUTSIDE RECORDS SUMMARY | 2024-07-27 14:47 | XMS_ITS | Encounter Summary ---
Author Organization Formerly [facility] Address [address] [place] [address] Care Team Providers Care Lead Systems Developer Name Role Phone Karin Clemente MD Primary Care Provider [phone] Amy Block DNP Unavailable [phone] Carlee Marcelo MD Unavailable [phone] Encounter Details Date Type Department Care Team Description 08/29/2023 Jewelry Facer Report Medical Records [address] [place] [address] Morena Allison E, SCRUM PRODUCT OWNER Social History Tobacco Use Types Packs/Day Years [...] filedocumented in this encounter Care Teams Lead Systems Developer Relationship Specialty Start Date End Date Karin Clemente MD [address] [place] [address] PCP - General Internal Medicine 11/08/21 Amy Block DNP [address] [place] [address] 16656 Specialist Nurse Practitioner Family 10/11/23 Carlee Marcelo MD [address] [place] [address] 40665 Specialist Cardiology 10/11/23 documented as of this encounter
--- OUTSIDE RECORDS SUMMARY | 2024-07-27 14:47 | XMS_ITS | Encounter Summary ---
Author Organization [facility] Address [address] [place] [address] Care Team Providers Care Harness Installer Name Role Phone Karin Clemente MD Primary Care Provider [phone] Amy Block DNP Unavailable [phone] Carlee Marcelo MD Unavailable [phone] Encounter Details Date Type Department Care Team Description 11/22/2023 City Planner Report Medical Records [address] [place] [address] Morena Allison E, BUSINESS DEVELOPMENT Social History Tobacco Use Types Packs/Day Years [...] on filedocumented in this encounter Care Teams Harness Installer Relationship Specialty Start Date End Date Karin Clemente MD [address] [place] [address] PCP - General Internal Medicine 11/08/21 Amy Block DNP [address] [place] [address] 38986 Specialist Nurse Practitioner Family 10/11/23 Carlee Marcelo MD [address] [place] [address] Specialist Cardiology 10/11/23 documented as of this encounter
--- OUTSIDE RECORDS SUMMARY | 2024-07-27 14:47 | XMS_ITS | Encounter Summary ---
Author Organization [facility] Address [address] [place] [address] Care Team Providers Care Admitting Counselor Name Role Phone Karin Clemente MD Primary Care Provider [phone] Amy Block DNP Unavailable [phone] Carlee Marcelo MD Unavailable [phone] Reason for Visit * Reason Comments E-prescribe Rx Request Encounter Details Date Type Department Care Team Description 07/17/2023 Refill Pulmonology - [place] 175 [facility] [address] [place] [address] Shelly Ruiz APRN 175 [facility] [address] [place] [address] E-prescribe Rx Request Social History [...] encounter Miscellaneous Notes * Telephone Encounter - Karly Olvera - 07/17/2023 2:01 PM EDT Nov 12/12/23 Sandra 06/06/23 documented in this encounter Plan of Treatment Not on file documented as of this encounter Visit Diagnoses Diagnosis H/O multiple allergies documented in this encounter Care Teams Admitting Counselor Relationship Specialty Start Date End Date Karin Clemente MD [address] [place] [address] PCP - General Internal Medicine 11/08/21 Amy Block DNP [address] [place] [address] Specialist Nurse Practitioner Family 10/11/23 Carlee Marcelo MD [address] [place] [address] 65[address] Specialist Cardiology 10/11/23 documented as of this encounter
--- OUTSIDE RECORDS SUMMARY | 2024-07-27 14:47 | XMS_ITS | Encounter Summary ---
Author Organization [facility] Address [address] [place] [address] Care Team Providers Care Men'S Custom Hair Piece Consultant Name Role Phone Karin Clemente MD Primary Care Provider [phone] Amy Block DNP Unavailable [phone] Carlee Marcelo MD Unavailable [phone] Reason for Visit * Reason Comments E-prescribe Rx Request Encounter Details Date Type Department Care Team Description 06/12/2022 Refill Adult Medicine [facility] [address] [place] [address] Erika Bolton PA-C [address] [place] [address] [phone] E-prescribe Rx Request Social History Tobacco Use [...] suspected to have Coronavirus/COVID-19? No / Unsure 06/09/2022 8:37 AM EST documented as of this encounter Plan of Treatment Not on file documented as of this encounter Visit Diagnoses Not on filedocumented in this encounter Care Teams Men'S Custom Hair Piece Consultant Relationship Specialty Start Date End Date Karin Clemente MD [address] [place] [address] PCP - General Internal Medicine 11/08/21 Amy Block DNP [address] [place] [address] Specialist Nurse Practitioner Family 10/11/23 Carlee Marcelo MD [address] [place] [address] Specialist Cardiology 10/11/23 documented as of this encounter
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
--- OUTSIDE RECORDS SUMMARY | 2024-07-27 14:47 | XMS_ITS | Encounter Summary ---
Author Organization [facility] Address [address] [place] [address] Care Team Providers Care Metal Annealer Name Role Phone Karin Clemente MD Primary Care Provider [phone] Amy Block DNP Unavailable [phone] Carlee Marcelo MD Unavailable [phone] Reason for Visit * Reason Onset Date Comments medication problems 08/16/2023 Prior Authorization 08/16/2023 Encounter Details Date Type Department Care Team Description 08/16/2023 Telephone Adult Medicine [address] [phone] Karin Clemente MD [address] [place] [address] [phone] medication problems; Prior Authorization Social History Tobacco Use Types Packs/Day Years [...] encounter Miscellaneous Notes * Telephone Encounter - Margaret Russell M.A. - 08/16/2023 1:14 PM EDT These meds are not covered by her insurance, these are otc meds I submitted the auth anyways Margaret Russell Prior Auth Dep Ext [id number] * Telephone Encounter - Landy Nath - 08/16/2023 1:07 PM EDT Please advise * Telephone Encounter - Brennen Angelo - 08/16/2023 12:51 PM EDT Who is calling? The patient Name of the medication Lactobacillus-Inulin ([facility]) Cap What is the specific problem or interaction? Patient has a receipt confirmed from [facility] [address] [place] [address] on 08/04/23 at 2:08pm but the patient is stating she never receivedthis medication due to needing a Prior Auth said by to her by the pharmacy. If the patient is having a problem with taking the med - how long has the problem been going on? N/A documented in this encounter Plan of Treatment Not on file documented as of this encounter Visit Diagnoses Not on filedocumented in this encounter Care Teams Metal Annealer Relationship Specialty Start Date End Date Karin Clemente MD [address] [place] [address] PCP - General Internal Medicine 11/08/21 Amy Block DNP [address] [place] [address] Specialist Nurse Practitioner Family 10/11/23 Carlee Marcelo MD [address] [place] [address] Specialist Cardiology 10/11/23 documented as of this encounter
--- OUTSIDE RECORDS SUMMARY | 2024-07-27 14:47 | XMS_ITS | Encounter Summary ---
Author Organization [facility] Address [address] [place] [address] Care Team Providers Care Avionics Systems Repairer Name Role Phone Rae Boss DO Primary Care Pro vider Unavailable Chuck Cervantes MD Primary Care Provider Unavailab Erika Herrera MD Primary Care Provider [phone] Hollie Nicholas MD Primary Care Provider Karin Vyas MD Primary Care Provider [phone] Amy Block DNP Unavailable [phone] Carlee Marcelo MD Unavailable [phone] Encounter Details Date Type Department Care Team Description 06/05/2020 [facility] Medical Records [address] [place] [address] Social History Tobacco Use Types Packs/Day Years [...] have Coronavirus / COVID-19? No / Unsure 05/25/2020 8:49 AM EST documented as of this encounter Plan of Treatment Not on file documented as of this encounter Procedures Procedure Name Priority Date/Time Associated Diagnosis Comments OUTSIDE VASCULAR STUDY Routine 06/04/2020 documented in this encounter Results * OUTSIDE VASCULAR STUDY (06/04/2020) Provider Abstract CARDIOLOGY documented in this encounter Visit Diagnoses Not on filedocumented in this encounter Care Teams Avionics Systems Repairer Relationship Specialty Start Date End Date Rae Boss DO PCP - General Internal Medicine 11/20/14 08/19/20 Chuck Cervantes MD PCP - General Internal Medicine 08/20/20 11/22/20 Erika Burciaga MD [address] [place] [address] PCP - General Internal Medicine 11/23/20 03/28/21 Hollie Nicholas MD [address] [place] [address] PCP - General Internal Medicine 03/29/21 11/07/21 Karin Clemente MD [address] [place] [address] PCP - General Internal Medicine 11/08/21 Amy Block DNP [address] [place] [address] Specialist Nurse Practitioner Family 10/11/23 Carlee Marcelo MD [address] [place] [address] Specialist Cardiology 10/11/23 documented as of this encounter
--- OUTSIDE RECORDS SUMMARY | 2024-07-27 14:47 | XMS_ITS | Encounter Summary ---
Author Organization [facility] Address [address] [place] [address] Care Team Providers Care Junior Net Developer Name Role Phone Rae Boss DO Primary Care Pro vider Unavailable Chuck Cervantes MD Primary Care Provider Unavailab Erika Herrera MD Primary Care Provider [phone] Hollie Nicholas MD Primary Care Provider Karin Vyas MD Primary Care Provider [phone] Amy Block DNP Unavailable [phone] Carlee Marcelo MD Unavailable [phone] Reason for Visit * Reason Onset Date Comments Appointment-Internal Referral 07/03/2020 Ph ysiatry Encounter Details Date Type Department Care Team Description 07/03/2020 Telephone Physiatry - [address] [phone] Rae Boss DO Appointment-Internal Referral (Physiatry) Social History Tobacco Use Types Packs/Day Years [...] have Coronavirus / COVID-19? No / Unsure 06/26/2020 2:15 PM EDT documented as of this encounter Miscellaneous Notes * Telephone Encounter - Briseyda Coronel - 07/03/2020 4:30 PM EDT Referral to Physiatry: FYI to referring. Calls made and letter sent for patient to call and schedule appt. Unable to book at this time. documented in this encounter Plan of Treatment Not on file documented as of this encounter Visit Diagnoses Not on filedocumented in this encounter Care Teams Junior Net Developer Relationship Specialty Start Date End Date Rae Boss DO PCP - General Internal Medicine 11/20/14 08/19/20 Chuck Cervantes MD PCP - General Internal Medicine 08/20/20 11/22/20 Erika Burciaga MD [address] [place] [address] PCP - General Internal Medicine 11/23/20 03/28/21 Hollie Nicholas MD [address] [place] [address] PCP - General Internal Medicine 03/29/21 11/07/21 Karin Clemente MD [address] [place] [address] PCP - General Internal Medicine 11/08/21 Amy Block DNP [address] [place] [address] [place] [address] Specialist Nurse Practitioner Family 10/11/23 Carlee Marcelo MD [address] [place] [address] Specialist Cardiology 10/11/23 documented as of this encounter
--- OUTSIDE RECORDS SUMMARY | 2024-07-27 14:47 | XMS_ITS | Encounter Summary ---
Author Organization [facility] Address [address] [place] [address] Care Team Providers Care Director Compensation Name Role Phone Chuck Cervantes MD Primary Care Provider Unavailab Erika Herrera MD Primary Care Provider [phone] Hollie Nicholas MD Primary Care Provider Karin Vyas MD Primary Care Provider [phone] Amy Block DNP Unavailable [phone] Carlee Marcelo MD Unavailable [phone] Reason for Visit * Reason Onset Date Comments Faxed Order 09/06/2020 Encounter Details Date Type Department Care Team Description 09/06/2020 Telephone Adult [address] [phone] Chuck Cervantes MD Faxed Order Social History Tobacco Use Types [...] Miscellaneous Notes * Telephone Encounter - Laurita Gomez - 09/15/2020 1:58 PM EDT Faxed order received from [facility]. Please review, sign, date, and fax back to [phone]. * Telephone Encounter - Mel Reyna - 09/06/2020 2:40 PM EDT [facility] IS FAXING ORDERS TO BE SIGN AND FAX BACK TO [phone]. documented in this encounter Plan of Treatment Not on file documented as of this encounter Visit Diagnoses Not on filedocumented in this encounter Care Teams Director Compensation Relationship Specialty Start Date End Date Chuck Cervantes MD PCP - General Internal Medicine 08/20/20 11/22/20 Erika Burciaga MD [address] [place] [address] PCP - General Internal Medicine 11/23/20 03/28/21 Hollie Nicholas MD [address] [place] [address] PCP - General Internal Medicine 03/29/21 11/07/21 Karin Clemente MD [address] [place] [address] PCP - General Internal Medicine 11/08/21 Amy Block DNP [address] [place] [address] Specialist Nurse Practitioner Family 10/11/23 Carlee Marcelo MD [address] [place] [address] Specialist Cardiology 10/11/23 documented as of this encounter
--- OUTSIDE RECORDS SUMMARY | 2024-07-27 14:47 | XMS_ITS | Encounter Summary ---
Author Organization [facility] Address [address] [place] [address] Care Team Providers Care Irrigation Manager Name Role Phone Karin Clemente MD Primary Care Provider [phone] Amy Block DNP Unavailable [phone] Carlee Marcelo MD Unavailable [phone] Reason for Visit * Reason Onset Date Comments Prior Authorization 05/02/2023 Encounter Details Date Type Department Care Team Description 05/02/2023 Telephone Adult Medicine [address] [phone] Karin Clemente MD [address] [place] [address] [phone] Prior Authorization Social History Tobacco Use Types [...] Miscellaneous Notes * Telephone Encounter - Kasey Sanchez M.A. - 08/10/2023 3:38 PM EDT Rx for the culturelle was last written on 08/04/23 This is all set. * Telephone Encounter - Kasey Sanchez M.A. - 05/05/2023 3:50 PM EST Prior authorization for the culturelle caps was completed today on cover my meds Dx code N76.0 Recurrent vaginitis. * Telephone Encounter - Cherie Wilkinson CNM - 05/05/2023 3:18 PM EST Recurrent vaginiits N76.0 is the code. Thanks. * Telephone Encounter - Kasey Sanchez M.A. - 05/05/2023 10:56 AM EST Please provide dx code for the culturelle caps. Thank you Please reply back to [id number] Prior Auth Pool Kasey [facility] Prior Authorization Ext [id number] * Telephone Encounter - Sully Jackson - 05/02/2023 1:40 PM EST Prior Authorization for Medication-do not complete and send this encounter unless you have the fax from the pharmacy. Is this a Cover My Meds request: Yes -- [place] Code [id number] Name of Medication Lactobacillus-Inulin ([facility]) Cap Dose of Medication What is the RX # from the faxed refill? How does patient take this med? What Pharmacy did the fax come from: [facility] [address] [place] [address] Dr Anish [facility]DON[facility] fax #: [phone] [employer] Information from fax: What Prescription Plan does the patient have? BIN/PCN if applicable: Cardholder ID: Person Code: Relationship Code: Help desk phone: documented in this encounter Plan of Treatment Not on file documented as of this encounter Visit Diagnoses Diagnosis Recurrent vaginitis- Primary Vaginitis and vulvovaginitis, unspecified documented in this encounter Care Teams Irrigation Manager Relationship Specialty Start Date End Date Karin Clemente MD [address] [place] [address] PCP - General Internal Medicine 11/08/21 Amy Block DNP [address] [place] [address] Specialist Nurse Practitioner Family 10/11/23 Carlee Marcelo MD [address] [place] [address] [phone] Specialist Cardiology 10/11/23 documented as of this encounter
--- OUTSIDE RECORDS SUMMARY | 2024-07-27 14:47 | XMS_ITS | Encounter Summary ---
Author Organization [facility] Address [address] [place] [address] Care Team Providers Care Cemetery Laborer Name Role Phone Karin Clemente MD Primary Care Provider [phone] Amy Block DNP Unavailable [phone] Carlee Marcelo MD Unavailable [phone] Encounter Details Date Type Department Care Team Description 01/10/2022 Orders Only Lab - [address] [id number] Karin Clemente MD [address] [place] [address] [phone] Social History Tobacco Use Types Packs/Day Years [...] PM EDT documented as of this encounter Plan of Treatment Not on file documented as of this encounter Visit Diagnoses Not on filedocumented in this encounter Care Teams Cemetery Laborer Relationship Specialty Start Date End Date Karin Clemente MD [address] [place] [address] [phone] PCP - General Internal Medicine 11/08/21 Amy Block DNP [address] [place] [address] 28426 Specialist Nurse Practitioner Family 10/11/23 Carlee Marcelo MD [address] [place] [address] 03595 Specialist Cardiology 10/11/23 documented as of this encounter
--- OUTSIDE RECORDS SUMMARY | 2024-07-27 14:47 | XMS_ITS | Encounter Summary ---
Author Organization [facility] Address [address] [place] [address] Care Team Providers Care Customer Development Representative Name Role Phone Chuck Cervantes MD Primary Care Provider Unavailab Erika Herrera MD Primary Care Provider [phone] Hollie Nicholas MD Primary Care Provider Karin Vyas MD Primary Care Provider [phone] Amy Block DNP Unavailable [phone] Carlee Marcelo MD Unavailable [phone] Encounter Details Date Type Department Care Team Description 09/24/2020 [facility] Medical Records [address] [place] [address] [phone] Social History Tobacco Use Types Packs/Day Years [...] Name Priority Date/Time Associated Diagnosis Comments OUTSIDE LAB Routine 09/24/2020 documented in this encounter Results * OUTSIDE LAB (09/24/2020) Provider Abstract LAB documented in this encounter Visit Diagnoses Not on filedocumented in this encounter Care Teams Customer Development Representative Relationship Specialty Start Date End Date Chuck Cervantes MD PCP - General Internal Medicine 08/20/20 11/22/20 Erika Burciaga MD [address] [place] [address] PCP - General Internal Medicine 11/23/20 03/28/21 Hollie Nicholas MD [address] [place], [place] [phone] PCP - General Internal Medicine 03/29/21 11/07/21 Karin Clemente MD [address] [place] [address]952 PCP - General Internal Medicine 11/08/21 Amy Block DNP [address] [place] [address] 72753 Specialist Nurse Practitioner Family 10/11/23 Carlee Marcelo MD [address] [place] [address] 09208 Specialist Cardiology 10/11/23 documented as of this encounter
--- OUTSIDE RECORDS SUMMARY | 2024-07-27 14:47 | XMS_ITS | Encounter Summary ---
Author Organization [facility] Address [address] [place] [address] Care Team Providers Care Ritual Circumciser Name Role Phone Karin Clemente MD Primary Care Provider [phone] Amy Block DNP Unavailable Carlee Marcelo MD Unavailable [phone] Encounter Details Date Type Department Care Team Description 06/12/2022 Refill Pulmonology - [place] [address] [facility] [address] [place] [address] Shelly Ruiz APRN [address] [facility] [address] [place] [id number] Social History Tobacco Use Types Packs/Day Years [...] allergies Allergic rhinitis, unspecified seasonality, unspecified trigger Severe asthma without complication, unspecified whether persistent documented in this encounter Care Teams Ritual Circumciser Relationship Specialty Start Date End Date Karin Clemente MD [address] [place] [address] PCP - General Internal Medicine 11/08/21 Amy Block DNP [address] [place] [address] 64960 Specialist Nurse Practitioner Family 10/11/23 Carlee Marcelo MD [address] [place] [address] 84701 Specialist Cardiology 10/11/23 documented as of this encounter
--- OUTSIDE RECORDS SUMMARY | 2024-07-27 14:47 | XMS_ITS | Encounter Summary ---
Author Organization [facility] Address [address] [place] [address] Care Team Providers Care Product Expert Name Role Phone Karin Clemente MD Primary Care Provider [phone] Amy Block DNP Unavailable [phone] Carlee Marcelo MD Unavailable [phone] Reason for Visit * Reason Onset Date Comments Prior Authorization 01/10/2022 [facility]- Ne[facility] Encounter Details Date Type Department Care Team Description 01/10/2022 Telephone Adult Medicine [address] [phone] Karin Clemente MD [address] [place] [address] [phone] Prior Authorization ([facility]- Ne[facility]) Social History Tobacco Use Types Packs/Day Years [...] on filedocumented in this encounter Care Teams Product Expert Relationship Specialty Start Date End Date Karin Clemente MD [address] [place] [address] 36649 PCP - General Internal Medicine 11/08/21 Amy Blcok DNP [address] [place] [address] 39443 Specialist Nurse Practitioner Family 10/11/23 Carlee Marcelo MD [address] [place] [address] 95035 Specialist Cardiology 10/11/23 documented as of this encounter
--- OUTSIDE RECORDS SUMMARY | 2024-07-27 14:47 | XMS_ITS | Encounter Summary ---
Author Organization [facility] Address [address] [place] [address] Care Team Providers Care Corporate Auditor Name Role Phone Karin Clemente MD Primary Care Provider [phone] Amy Block DNP Unavailable [phone] Carlee Marcelo MD Unavailable [phone] Reason for Visit * Reason Onset Date Comments refill request 04/10/2023 Encounter Details Date Type Department Care Team Description 04/10/2023 Refill Adult Medicine [address] [phone] Karin Clemente MD [address] [place] [address] [phone] refill request Social History Tobacco Use Types [...] encounter Miscellaneous Notes * Telephone Encounter - Shay Gross PA-C - 04/10/2023 5:23 PM EST Refill not appropriate. * Telephone Encounter - Lindsay Snell M.A. - 04/10/2023 3:34 PM EST Last office visit 02/20/23 Next office visit 08/08/23 Last filled on 12/09/22 for 1800 ml (30 days) with 1 refill Will you sign? * Telephone Encounter - Gareth Herzog - 04/10/2023 2:48 PM EST Patient would like script to be: E-PRESCRIBED/FAXED TO PHARMACY WHEN WAS THE PATIENT'S LAST APPOINTMENT IN ADULT MEDICINE? 02/20/23 WHEN WAS THE LAST TIME THE PATIENT SAW THEIR PCP? 02/21/22 Does patient have an upcoming appointment? Yes 08/08/23 (THE MEDICATION REQUESTED IS ON THE MED [...] N/A Patients current insurance carrier is: Payor: [facility] [employer] / Plan: [facility] [employer] / Product Type: MEDICAID RISK documented in this encounter Plan of Treatment Not on file documented as of this encounter Visit Diagnoses Not on filedocumented in this encounter Care Teams Corporate Auditor Relationship Specialty Start Date End Date Karin Clemente MD [address] [place] [address] PCP - General Internal Medicine 11/08/21 Amy Block DNP [address] [place] [address] 35167 Specialist Nurse Practitioner Family 10/11/23 Carlee Marcelo MD [address] [place] [address] 84098 Specialist Cardiology 10/11/23 documented as of this encounter
--- OUTSIDE RECORDS SUMMARY | 2024-07-27 14:47 | XMS_ITS | Encounter Summary ---
Author Organization [facility] Address [address] [place] [address] Care Team Providers Care Crayon Grader Name Role Phone Karin Clemente MD Primary Care Provider [phone] Amy Block DNP Unavailable [phone] Carlee Marcelo MD Unavailable [phone] Reason for Visit * Reason Comments E-prescribe Rx Request Encounter Details Date Type Department Care Team Description 06/13/2023 Refill Adult Medicine [address] [phone] Karin Clemente MD [address] [place] [address] [phone] E-prescribe Rx Request Social History Tobacco Use [...] Telephone Encounter - Sachi Wright M.A. - 06/13/2023 10:07 AM EDT Lab Results Component Value Date NA 141 12/29/2022 K 3.9 12/29/2022 CO2 27 12/29/2022 CL 106 12/29/2022 BUN 7 12/29/2022 CREAT 0.85 12/29/2022 GLU 88 12/29/2022 CA 9.0 12/29/2022 GFR 90 12/29/2022 Pending appt 08/08/23 Last appt 06/06/23 * Telephone Encounter - Yariel Jacob - 06/13/2023 9:50 AM EDT Patient would like script to be: E-PRESCRIBED/FAXED TO PHARMACY WHEN WAS THE PATIENT'S LAST APPOINTMENT IN ADULT MEDICINE? 06/05/22 WHEN WAS THE LAST TIME THE PATIENT SAW THEIR PCP? 05/09/23 Does patient have an upcoming appointment? Yes [...] current insurance carrier is: Payor: [facility] F[employer] / Plan: [facility] [employer] / Product Type: MEDICAID RISK documented in this encounter Plan of Treatment Not on file documented as of this encounter Visit Diagnoses Not on filedocumented in this encounter Care Teams Crayon Grader Relationship Specialty Start Date End Date Karin Clemente MD [address] [place] [address]25 PCP - General Internal Medicine 11/08/21 Amy Block DNP [address] [place] [address] [phone] Specialist Nurse Practitioner Family 10/11/23 Carlee Marcelo MD [address] [place] [address] 83539 Specialist Cardiology 10/11/23 documented as of this encounter
--- OUTSIDE RECORDS SUMMARY | 2024-07-27 14:47 | XMS_ITS | Encounter Summary ---
Author Organization [facility] Address [address] [place] [address] Care Team Providers Care Brick Mason Name Role Phone Rae Boss DO Primary Care Pro vider Unavailable Chuck Cervantes MD Primary Care Provider Unavailab Erika Herrera MD Primary Care Provider [phone] Hollie Nicholas MD Primary Care Provider Karin Vyas MD Primary Care Provider [phone] Amy Block DNP Unavailable [phone] Carlee Marcelo MD Unavailable [phone] Reason for Visit * Reason Comments E-prescribe Rx Request Encounter Details Date Type Department Care Team Description 03/29/2017 Refill [address]erm[address] [phone] Sophia Ferrera PA-C E-prescribe Rx Request Social History Tobacco [...] encounter Miscellaneous Notes * Telephone Encounter - Tina Chou MA - 03/29/2017 11:11 AM EST ANGELI no f/u scheduled documented in this encounter Plan of Treatment Not on file documented as of this encounter Visit Diagnoses Not on filedocumented in this encounter Care Teams Brick Mason Relationship Specialty Start Date End Date Rae Boss DO PCP - General Internal Medicine 11/20/14 08/19/20 Chuck Cervantes MD PCP - General Internal Medicine 08/20/20 11/22/20 Erika Burciaga MD [address] [place] [address] 96361 PCP - General Internal Medicine 11/23/20 03/28/21 Hollie Nicholas MD [address] [place] [address] 42001 PCP - General Internal Medicine 03/29/21 11/07/21 Karin Clemente MD [address] [place] [address] 88215 PCP - General Internal Medicine 11/08/21 Amy Block DNP [address] [place] [address] 30238 Specialist Nurse Practitioner Family 10/11/23 Carlee Marcelo MD [address] [place] [address] 14516 Specialist Cardiology 10/11/23 documented as of this encounter
[2024-07-27 14:59] LABS: Alanine Aminotransferase 29 U/L (0-31); Albumin Level 3.6 g/dL (3.5-5.0); Alkaline Phosphatase 69 U/L (39-117); Anion Gap 10 (12-20); Aspartate Amino Transferase 37 U/L (5-31); Bilirubin Total 0.5 mg/dL (0.0-1.0); Blood Urea Nitrogen 7 mg/dL (9-16); Calcium 8.8 mg/dL (8.4-10.2); Carbon Dioxide 23 mmol/L (22-29); Chloride 108 mmol/L (96-108); Creatinine Clr Calc Pharmacy 140.1; Estimated Glomerular Filt Rate > 60; Glucose Random 88 mg/dL (60-115); Lipase 9 U/L (8-78); Sodium 137 mmol/L (135-145); Total Protein 6.6 g/dL (6.5-8.0)
[2024-07-27 15:04] LABS: B Type Natriuretic Peptide < 10 pg/mL (<100)
[2024-07-27 15:09] LABS: Troponin-I High Sensitivity < 2.7 ng/L (<3.5-17.0)
[2024-07-27 15:27] LABS: Influenza A PCR NEGATIVE (Negative); Influenza B PCR NEGATIVE (Negative); Resp Syncy Virus RNA Qual PCR NEGATIVE (Negative); SARS COV2 PCR INHOUSE NEGATIVE (Negative)
[2024-07-27 17:09] VITALS: BP 146/74; PULSE 89; RESP 18; TEMP 36.8; O2SAT 96
--- NOTE | 2024-07-27 17:09 | PC.NURSE ---
Patient refused Robaxin. Reviewed discharge paperwork with the patient. Ambulated with steady gait out of ED. Calm/cooperative/agreeable with plan of care & discharge instructions.
== END 2024-07-27 17:09 | disposition home or self-care (01) ==
PROVIDERS: Physician Assistant; Emergency Provider Emergency Medicine; PCP Internal Medicine
DX: R07.89 Other chest pain (principal); R60.0 Localized edema; M54.2 Cervicalgia; R51.9 Headache, unspecified; Z79.899 Other long term (current) drug therapy; Z03.818 Encounter for observation for suspected exposure to other biological agents ruled out
CPT/HCPCS: 0241U; 71046; 80053; 83690; 83880; 84484; 85025; 93005; 93970; 99283; 99284

== ENCOUNTER → 2024-07-27 13:20 | Outpatient (BNV) | payer OTHER, SELFPAY | PROVIDERS: Emergency Provider Emergency Medicine; PCP Internal Medicine; Visit Provider Internal Medicine | DX: R07.9 Chest pain, unspecified (principal) | CPT/HCPCS: 93010 ==

== ENCOUNTER → 2024-07-27 13:21 | Outpatient (BNV) | payer OTHER, SELFPAY | PROVIDERS: Emergency Provider Emergency Medicine; PCP Internal Medicine; Visit Provider Radiology Diagnostic Radiology | DX: M79.604 Pain in right leg (principal); R60.0 Localized edema; R07.9 Chest pain, unspecified | CPT/HCPCS: 71046; 93970 ==

== ENCOUNTER 2024-11-08 09:03 | Outpatient (AMB) | payer OTHER, SELFPAY ==
--- OUTSIDE RECORDS SUMMARY | 2024-11-08 09:14 | XMS_ITS ---
Author Name [facility] Organization Unknown Care Team Organization Name Specialty Phone Email Start Date End Da te [facility] Karin Clemente Primary Care 06/08/2022 024 [facility] Jamia Cox Primary Care 02/08/20222023
--- OUTSIDE RECORDS SUMMARY | 2024-11-08 09:14 | XMS_ITS | Clinical Summary ---
Author Organization [facility] [address] [place] [address] [place] [phone] Phone Care Team Providers Care Sheep Sorter Name Role Phone Karin Clemente MD Primary Care Provider [phone] Allergies Active Allergy Reactions Criticality Noted Date Comments Amoxicillin-Pot Clavulanate High 12/01/19 22 Other Reaction(s): Numbness, tingling or swelling of the lips, tongue or mouth Cefaclor 12/09/2014 Clindamycin Itching 05/01/2016 Lemon Flavor 05/27/2016 Macrolide Antibiotics 02/11/2014 Methylisothiazolinone 01/27/2017 Other 03/14/2016 TESTED POSITIVE BY DIRECTOR OF CORPORATE SALES Peanut 03/14/2016 DIRECTOR OF CORPORATE SALES TESTED POSITIVE [place] 12/03/2020 Medications cetirizine (ZyrTEC) 10 mg tablet Take 2 tablets (20 mg total) by mouth 1 (one) time each day if needed for allergies or rhinitis. 09/05/19 24 Active diphenhydrAMINE (BENADRYL) 25 mg capsule Take 1 capsule (25 mg total) by mouth every 6 (six) hours if needed for allergies. (TAKE 1-2 TABLETS WITH ALLERGY REACTIONS). 07/18/19 24 Active fluticasone propion-salmete roL (ADVAIR HFA) 230-21 mcg/actuation inhaler Inhale 2 puffs by mouth 2 (two) times a day. This medication has inhaler steroid: Rinse mouth with water and expectorate after each dose to prevent oral/esophagea l candidiasis or fungal infection. - 08/15/19 24 Active sodium chloride (AYR) 0.65 % nasal [...] dizziness. 30 tablet 5 03/07/20 24 Active ibuprofen (ADVIL,MOTRIN) 100 mg/5 mL suspension Take 20 mL (400 mg total) by mouth every 8 (eight) hours if needed for mild pain. 1800 mL 1 06/14/19 25 Active riboflavin (VITAMIN B2) 100 mg tablet Take 4 tablets (400 mg total) by mouth 1 (one) time each day. 120 tablet 5 07/17/19 25 Active SUMAtriptan (IMITREX) 100 mg tablet TAKE ONE-HALF TO ONE TABLET BY MOUTH NEEDED AT ONSET OF HEADACHE. MAY REPEAT IN 2 HOURS NEEDED. MAX 2 TABLETS PER DAY OR 4 TABLETS A WEEK. (MAY TAKE WITH IBUPROFEN). 07/03/19 25 Active lactobacillus (Culturelle) 10 billion cell capsule Take 1 capsule by mouth 1 (one) time each day. 90 capsule 3 07/19/19 25 2025 Active multivitamin (Tab-A-Meri) tablet Take 1 tablet by mouth once daily 90 tablet 1 08/06/19 25 Active Ventolin HFA 90 mcg/actuation inhaler Inhale 2 puffs by mouth every 4 (four) hours if needed for wheezing. 36 g 2 09/04/19 25 2024 Active EPINEPHrine (EpiPen 2-Alexi) 0.3 mg/0.3 mL injection Inject 0.3 mL (0.3 mg total) into the thigh if needed for anaphylaxis. 1 each 09/04/19 25 Active cholecalciferol (VITAMIN D-3) 50 mcg (2,000 unit) tablet Take 1 tablet by mouth once daily 90 tablet 1 09/11/19 25 Active folic acid (FOLVITE) 800 mcg tablet Take 1 tablet by mouth once daily 90 tablet 1 10/02/19 25 Active biotin 5 mg capsule Take 1 capsule by mouth once daily 30 capsule 4 10/30/19 25 Active acetaminophen (TYLENOL) 325 mg tablet TAKE 1 TABLET BY MOUTH EVERY 4 HOURS NEEDED FOR PAIN 360 tablet 10/30/19 25 Active zafirlukast (Accolate) 10 mg tabletIndicatio ns:Moderate persistent asthma with exacerbation Take 1 tablet (10 mg total) by mouth 2 (two) times a day. 60 tablet 2 11/01/19 25 2025 Active triamcinolone (NASACORT) 55 mcg nasal inhalerIndicati ons:Seasonal allergic rhinitis due to pollen Administer 2 sprays into each nostril 1 (one) time each day. 10.8 mL 2 11/01/19 25 2025 Active famotidine (PEPCID) 40 mg tablet Take 1 tablet by mouth twice daily 180 tablet 11/05/19 25 Active acetaminophen (TYLENOL) 325 mg tablet Take 1 tablet (325 mg total) by mouth every 4 (four) hours if needed for mild pain. 01/26/20 23 2024 Discontinued fluticasone propionate (FLONASE) 50 mcg/actuation nasal spray Administer 2 sprays into each nostril 1 (one) time each day. 02/29/20 23 2024 Discontinued(A lternate therapy) famotidine (PEPCID) 40 mg tablet Take 1 tablet (40 mg total) by mouth 2 (two) times a day. 180 each 06/19/19 25 2024 Discontinued biotin 5 mg capsule Take 1 capsule by mouth once daily 30 capsule 08/06/19 25 2024 Discontinued Active Problems Problem Noted Date Diagnosed Date Bilateral tinnitus 07/02/2024 Referred otalgia of right ear 07/02/2024 Chronic gastric ulcer with obstruction Kidney stones 01/08/2024 Moderate asthma 01/08/2024 Overview (01/08/2024): 05/18/2017 ,zhen prn. Family history of cancer 01/08/2024 Hx of splenomegaly 01/08/2024 Hx of Helicobacter infection 01/08/2024 Morbid obesity with BMI of 4 5.0-49.9, adult ([facility] V24, [facility] V28) 01/08/2024 Benign paroxysmal positional vertigo 03/28/2023 [...] 02/11/2014 Anxiety 02/11/2014 Overview (01/08/2024): Follows with [facility] behavioral health Counselor: Vanessa Tidwell - weekly OCD (obsessive compulsive disorder) 02/11/2014 Overview (01/08/2024): Sees [facility] Diaposproa- Victoria Tidwell Tenosynovitis, de Quervain 02/11/2014 Overview (01/08/2024): right Dyshidrotic eczema 02/11/2014 Encounters Date Type Department Care Team Description 11/07/2024 Telephone Adult Medicine [address] [phone] Corry Renteria MA [facility] 11/06/2024 Telephone Orthopedic Surgery - [place] [address] [phone] Jonatan Marie, DPFreya 10/31/2024 1:00 PM EDT Office Visit Pulmonolgy [facility] 200 [place] [phone] Shelly Ruiz NP Seasonal allergic rhinitis due to pollen (Primary Dx); Moderate persistent asthma with exacerbation 10/28/2024 Telephone Adult Medicine [address] [phone] Karin Clemente MD Referral 10/22/2024 1:15 PM EDT Office Visit Bariatric Surgery [facility] 175 [facility] [address] [place] [phone] Daisy Dan MD Calculus of gallbladder without cholecystitis without obstruction (Primary Dx); Lipoma of torso; Lipoma of neck; Obesity, Class III, BMI 40-49.9 (morbid obesity); Gastroesophageal reflux disease, unspecified whether esophagitis present; Lipoma of right thigh 10/09/2024 Telephone Adult Medicine [address] [phone] Karin Clemente MD Referral 09/26/2024 11:15 AM EDT Office Visit Obstetrics & Gynecology [address] [phone] Cherie Wilkinson CNM Encounter for well woman exam with routine gynecological exam (Primary Dx); Screening breast examination; Pap smear abnormality of cervix with ASCUS favoring benign; Screening for cervical cancer; Skin eruption 09/17/2024 2:00 PM EDT Office Visit Orthopedic Surgery [facility] 250 [address] [facility] 250 [place] [phone] Jonatan Marie, DPM Tendinitis of right ankle (Primary Dx); Bursitis of right foot 09/12/2024 10:00 AM EDT Office Visit Adult Medicine [address] [phone] Shay Gross PA Plantar fasciitis, bilateral (Primary Dx) 09/10/2024 3:15 PM EDT - 09/10/2024 11:59 PM EDT Hospital [facility] [address] [phone] Screening breast examination Discharge Disposition: Home or Self Care 08/27/2024 Telephone Adult Medicine [address] [phone] Karin Clemente MD Reschedule; Foot Injury 08/13/2024 1:15 PM EDT Office Visit Obstetrics & Gynecology - [address] [phone] Cherie Wilkinson CNM Late menses (Primary Dx) from Last 3 Months Immunizations Name Administration [...] (obsessive compulsive disorder) 02/11/2014 Asthma Morbid obesity ([facility] V24, [facility] V28) 02/11/2014 Anxiety 02/11/2014 ADHD (attention deficit hype ractivity disorder) 02/11/2014 DX:ADHD (attention deficit hyperactivity disorder) Allergic rhinitis 03/10/2015 DX:Allergic rh initis Anxiety 02/11/2014 DX:Anxiety; COMM ENT: Follows with [facility] behavioral health Counselor: Vanessa Tidwell - [...] - never had LP Normal CTH 2009 Dyshidrotic eczema 02/11/2014 DX:Dyshidroti c eczema Dyslipidemia [...] obesity wit h BMI of 45.0-49.9, adult (HCC) OCD (obsessive compulsive disorder) 02/11/2014 DX:OCD (obsessive compulsive disorder); [facility] 02/11/2014 DX:Te nosynovitisFrazier; COMMENT: right Vitamin D deficiency 07/03/2017 DX:Vitamin [...] Orientation Bisexual 04/15/2024 11 :18 AM EST Occupation Industry Job Start Date Job End Date SSI, plans to go back to school for GED Not on file N ot on file Not on file Obstetrics History Para Term AB IAB SAB Ectopic Multiple Livin g Live Births 3 2 2 1 1 2 2 Date Outcome GA Total Labor Labor/2nd/3rd Weight Sex Type Anes PTL Princess A1 A5 Name Clin 006 Term 40w 0d 2920 g (103 oz) M Vag-S pont None Living Dr.Si newsome Delivery Location:[facility] 009 Term 38w 0d 3827 g (135 oz) M Vag-S pont None Living 8 9 Delivery Location:[facility] 11/2018 SAB SAB Last Filed Vital Signs Vital Sign Reading Time Taken Comments Blood Pressure 130/84 10/31/2024 1:10 PM EDT Pulse 87 10/31/2024 1:10 PM EDT Temperature 35.6 C (96.1 F) 10/31/2024 1:10 PM EDT Respiratory Rate 16 10/31/2024 1:10 PM EDT Oxygen Saturation 91% 10/31/2024 1:10 PM EDT Inhaled Oxygen Concentration - - Weight 136 kg (299 lb 3.2 oz) 10/31/2024 1:10 PM EDT Height 165.1 cm (5' 5 ) 10/31/2024 1:10 PM EDT Body Mass Index 49.79 10/31/2024 1:10 PM EDT Plan of Treatment Upcoming Encounters Date Type Department Care Team (Late st Contact Info) Description 11/13/2024 1:30 PM EDT Office Visit Orthopedic Surgery - [place] [address] [phone] Jonatan Marie DPM [address] [phone] 11/20/2024 10:00 AM EDT Telemedicine [address] [phone] Gina Cevallos MD [address] [place] [address] 11/28/2024 12:00 PM EDT Evaluation [facility] - [place] [address] [phone] Ines Tidwell, PT 01/08/2025 4:00 PM EDT Office Visit Adult Medicine [address] [phone] Karin Clemente MD [address] [place] [phone] 01/21/2025 3:20 PM EDT Office Visit Gastroenterology - [address] [phone] Amelia Garcia, ES [address] [address] 02/04/2025 11:00 AM EST Office Visit Pulmonolgy - [place] [address] [phone] Shelly Ruiz, ES [address] [phone] 04/29/2025 11:15 AM EST Office Visit Bariatric Surgery - [address] [phone] Daisy Dan MD [address] [phone] Health Maintenance Due Date Last Done Comments Hepatitis B Vaccines (1 of 3 - 19+ 3-dose series) 2003 Pneumococcal Vaccine: Pediatrics (0 to 5 Years) and At-Risk Patients (6 to 49 Years) (1 of 2 - PCV) 2003 Social Influencers of Health Screening 03/12/2022 COVID-19 Vaccine ( - 2023-2 5 season) 2023 Depression Screening 04/03/2024 Influenza Vaccine (#1) 2024 Breast Cancer Screening 09/10/2026 09/11/19 25, 03/31/2022 Cholesterol Screening (Lipid Panel) 08/08/2028 08/09/2023, 08/09/2023 Cervical Cancer Screening: HPV 09/26/2029 0 09/26/2024, 07/12/2023 DTaP,Tdap,and Td Vaccines (3 - Td or [...] Procedure Name Priority Date/Time Associated Diagnosis Comments PAP SMEAR Routine 09/26/2024 11:50 AM EDT Encounter for well woman exam with routine gynecological exam Pap smear abnormality of cervix with ASCUS favoring benign Screening for cervical cancer HPV WITH REFLEX GENOTYPE Routine 09/26/2024 11:50 AM EDT Encounter for well woman exam with routine gynecological exam Pap smear abnormality of cervix with ASCUS favoring benign Screening for cervical cancer MG MAMMO DIGITAL SCREENING W BANDAR BILAT Routine 09/10/2024 3:44 PM EDT Screening breast examination THYROID STIMULATING HORMONE WITH REFLEX TO FREE T4 AND FREE T3 Routine 08/13/2024 1:54 PM EDT Late menses HCG, SERUM, QUALITATIVE Routine 08/13/2024 1:54 PM EDT Late menses CHLAMYDIA TRACHOMATIS AND NEISSERIA GONORRHOEAE PCR Routine 08/13/2024 1:41 PM EDT Late menses POC , URINE DIAGNOSTIC Routine 08/13/2024 1:23 PM EDT Late menses LIPID PANEL Routine 08/09/2023 HIV SCREENING Routine 01/10/2022 HEPATITIS C SCREENING Routine 04/23/2020 from Last 3 Months or Most Recently Relevant to Health Maintenance Results * HPV with reflex genotype (09/26/2024 11:50 AM EDT) HPV Negative Negative LAB MICROBIOLOGY METHOD 09/27/2024 12:43 PM EDT [facility] Brushing/Spatula Cervix uteri structure / Unknown 09/26/2024 11:50 AM EDT 09/27/2024 6:13 AM EDT Cherie BOOTH LAB MOLECULAR DIAGNOSTICS ORD ERABLES Final Result [facility] [address] [place] [address], * Pap smear (09/26/2024 11:50 AM EDT) Interpretation Negative for intraepithelial lesion or malignancy 10/07/2024 8:39 AM EDT [facility] Clinical Information 2023 ASCUS, neg HPV 2022 ASCUS , neg HPV 10/07/2024 8:39 AM EDT [facility] General Categorization Negative 10/07/2024 8:39 AM EDT [facility] LMP 09/04/2024 10/07/2024 8:39 AM EDT [facility] Specimen Adequacy Satisfactory for evaluation, endocervical/schroeder sformation zone component absent 10/07/2024 8:39 AM EDT [facility] Pap Methodology Liquid Based Pap Test 10/07/2024 8:39 AM EDT [facility] Disclaimer The Pap test is a screening test which carries an inherent false negative rate. These test results should be correlated with the patient's clinical findings and history. This Pap test was processed using an automated screening system. Technical cytopathology services provided by [facility], at [address] [place] [id number] (CLIA # [id number]/Bradley Drummond MD, Ways Operator.) 10/07/2024 8:39 AM EDT [facility] Console Pap Interpretation Reported 10/07/2024 8:39 AM EDT [facility] Brushing/Spatula Cervix uteri structure / Unknown 09/26/2024 11:50 AM EDT 09/27/2024 6:13 AM EDT Comment:2023 ASCUS, neg HPV2 023 ASCUS , neg HPV Cherie Wilkinson [facility] LAB CYTOLOGY ORDERABLES Final Result Performing Organization Address City/State/[facility] Co de Phone Number [facility] [address] [place] [address], * MG Mammo Digital Screening w Bandar bilat (09/10/2024 3:44 PM EDT) Anatomical Region Laterality Modality Breast Bilateral Mammography 09/11/2024 11:2 3 AM EDT Impressions 09/11/2024 11:31 AM EDT No mammographic evidence of malignancy. No suspicious interval change. A negative mammogram in the presence of a clinically suspicious palpable abnormality does not preclude the possibility of malignancy or alter the indications for biopsy. ASSESSMENT: BI-RADS 1: NEGATIVE RECOMMENDATION(S): 1: Routine screening mammogram BILATERAL in 1 year. [facility] location[facility] [address], [address] -------- FINAL REPORT -------- Dictated By: Tee Cronin Dictated Date: 09/11/2024 11:23 ET Assigned Physician: Tee Cronin Reviewed and Electronically Signed By: Tee Cronin Signed Date: 09/11/2024 11:31 ET Workstation ID: [id number] Transcribed By: Self Edit Transcribed Date: 09/11/2024 11:23 ET Narrative 09/11/2024 11:31 AM EDT EXAM: SCREENING MAMMOGRAPHY, BILATERAL HISTORY: SCREENING. Aunt diagnosed with breast cancer age 45 COMPARISON: 03/31/22 TECHNIQUE: Synthesized CC and MLO projections of each breast. Tomosynthesis of each breast in the CC and MLO projections. ADDITIONAL IMAGING: None Computer-aided detection was employed with the FlexMinder AI 3-D. TISSUE DENSITY: The breasts are almost entirely fatty. (BI-RADS Category A) FINDINGS: RIGHT BREAST: No suspicious mass. No suspicious calcification. No distortion. No additional suspicious right breast findings LEFT BREAST: No suspicious mass. No suspicious calcification. No distortion. No additional suspicious left breast findings Procedure Note Tee Cronin MD - 09/11/2024 EXAM: SCREENING MAMMOGRAPHY, BILATERAL HISTORY: SCREENING. Aunt diagnosed with breast cancer age 45 COMPARISON: 03/31/22 TECHNIQUE: Synthesized CC and MLO projections of each breast.Tomosynthesis of each breast in the CC and MLO projections. ADDITIONAL IMAGING: None Computer-aided detection was employed with the FlexMinder AI 3-D. TISSUE DENSITY: The breasts are almost entirely fatty. (BI-RADS CategoryA) FINDINGS: RIGHT BREAST: No suspicious mass. No suspicious calcification. No distortion. Noadditional suspicious right breast findings LEFT BREAST: No suspicious mass. No suspicious calcification. No distortion. Noadditional suspicious left breast findings IMPRESSION: No mammographic evidence of malignancy. No suspicious interval change. A negative mammogram in the presence of a clinically suspicious palpableabnormality does not preclude the possibility of malignancy or alter theindications for biopsy. ASSESSMENT: BI-RADS 1: NEGATIVE RECOMMENDATION(S): 1: Routine screening mammogram BILATERAL in 1 year. [facility] location[facility] [address] [place], [address] -------- FINAL REPORT -------- Dictated By: Tee Cronin Dictated Date: 09/11/2024 11:23 ET Assigned Physician: Tee Cronin Reviewed and Electronically Signed By: Tee Cronin Signed Date: 09/11/2024 11:31 ET Workstation ID: [id number] Transcribed By: Self Edit Transcribed Date: 09/11/2024 11:23 ET us Cherie Wilkinson CNM IMG BI PROCEDURES Final Resul t * Thyroid stimulating hormone with reflex to free t4 and free t3 (08/13/2024 1:54 PM EDT) Pathologist [facility] TSH 2.92 0.40 - 4.00 mcIU/mL LAB CHEMISTRY METHOD 08/13/2024 5:13 PM EDT [facility] Blood Venous blood specimen / Unknown Venipuncture / Unknown 08/13/2024 1:54 PM EDT 08/13/2024 4:09 PM EDT Cherie Wilkinson CNM LAB BLOOD ORDERABLES Final Re sult [facility] [address] [place] [address], [place] [phone] * HCG, serum, qualitative (08/13/2024 1:54 PM EDT) hCG Qual Negative Negative 08/13/2024 5:40 PM EDT [facility] Blood Venous blood specimen / Unknown Venipuncture / Unknown 08/13/2024 1:54 PM EDT 08/13/2024 4:10 PM EDT Cherie Wilkinson [facility] LAB BLOOD ORDERABLES Final Re sult [facility] [address] [place] [address], [place] [phone] * Chlamydia trachomatis and Neisseria gonorrhoeae molecular study (08/13/2024 1:41 PM EDT) Pathologist [facility] Neisseria gonorrhoeae PCR Negative Negative LAB MOLECULAR DIAGNOSTICS METHOD 08/14/2024 9:34 AM EDT [facility] Chlamydia trachomatis PCR Negative Negative LAB MOLECULAR DIAGNOSTICS METHOD 08/14/2024 9:34 AM EDT [facility] Urine Urine specimen from urethra / Unknown Non-blood Collection / Unknown 08/13/2024 1:41 PM EDT 08/13/2024 4:00 PM EDT Cherie Wilkinson [facility] MICROBIOLOGY - GENERAL OR DERABLES Final Result [facility] [address] [place] [address], [place] [phone] * POC , urine manually resulted (08/13/2024 1:23 PM EDT) Pathologist [facility] HCG, Ur POC Negative Negative POC hCG Int QC Pass? Yes Yes Urine Urine specimen obtained by clean catch procedure / Unknown 08/13/2024 1:23 PM EDT Cherie Wilkinson [facility] POINT OF CARE TEST ENTER/EDIT ORDERABLES Final Result * (ABNORMAL) Lipid panel (08/09/2023) Pathologist [facility] LDL/HDL Ratio 3 0 - 4 Triglycerides 120 0 - 150 mg/dL Cholesterol 193 0 - 200 mg/dL HDL 60 >=40 mg/dL LDL Cholesterol 109(A) 0 - 100 mg/dL Blood Venous blood specimen / Unknown Historical Provider LAB BLOOD ORDERABLES Dana l Result * HIV Screening (01/10/2022) HIV Screening abstracted Historical Provider HEALTH MAINTENANCE Final Result * Hepatitis C Screening (04/23/2020) Hepatitis C Screening abstracted Historical Provider HEALTH MAINTENANCE Final Result from Last 3 Months or Most Recently Relevant to Health Maintenance Insurance [facility] [employer] [facility] [facility] [employer] Care Teams Sheep Sorter Relationship Specialty Start Date End Date Karin Clemente MD [address] [place] [id number] PCP - General Internal Medicine 01/23/24
[2024-11-08 09:46] VITALS: BP 130/76; PULSE 99; O2SAT 99; BMI 49.9
--- NOTE | 2024-11-08 09:46 | MHC.OFFVIS ---
Vital Signs 11/08/24 09:46 Height 5 ft 5 in Weight 300 lb BMI 49.9 BP 130/76 Blood Pressure Location Lt brachial Position Sitting Pulse 99 Pulse Source Pulse Oximeter Pulse Oximetry (%) 99 Oxygen Delivery Method Room Air Intake Visit Reasons: Follow up Intake Note: Patient presents follow up Migraine medication. 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 Required: No Accompanied by: Self / Same As Patient Allergies peanut (PEANUT) Allergy (Severe, Verified 11/08/24 09:50) ANAPHYLAXIS clindamycin (CLINDAMYCIN) Allergy (Mild, Verified 11/08/24 09:50) UNKNOWN strawberry Allergy (Mild, Verified 11/08/24 09:50) Abdominal Pain amoxicillin (From Augmentin) Allergy (Unknown, Verified 11/08/24 09:50) Unknown cefaclor (From CECLOR) Allergy (Unknown, Verified 11/08/24 09:50) UNKNOWN clavulanic acid (From Augmentin) Allergy (Unknown, Verified 11/08/24 09:50) Unknown erythromycin base (ERYTHROMYCIN BASE) Allergy (Unknown, Verified 11/08/24 09:50) RASH lemon (Lemon) Adverse Reaction (Unknown, Verified 11/08/24 09:50) VOMITING SEAFOOD Allergy (Severe, Uncoded 07/02/24 11:38) ANAPHYLAXIS berries Allergy (Unknown, Uncoded 07/02/24 11:38) Unknown Medication List - Last Reconciled 11/08/24 by ALFONSO Peterson acetaminophen 325 mg PO Q4H PRN albuterol sulfate 2.5 mg (3 mL) inhalation Q4-6H PRN albuterol sulfate 90 mcg/actuation 2 puffs inhalation Q4-6H PRN benzonatate 200 mg PO TID 7 days biotin 5 mg PO DAILY cetirizine 20 mg PO DAILY PRN cholecalciferol (vitamin D3) 50 mcg PO DAILY cyclobenzaprine 5 mg PO TID PRN dicyclomine 20 mg PO QID 30 days diphenhydramine HCl (Banophen) 25 mg PO TID PRN docusate sodium (Colace) 100 mg PO .DAILY WITH FOOD 30 days famotidine 40 mg PO BID 90 days ferrous gluconate 324 mg PO DAILY fluticasone propion-salmeterol 230-21 mcg/actuation (Advair HFA) 2 puffs PO BID fluticasone propionate 50 mcg/actuation 2 sprays intranasal DAILY PRN folic acid 0.8 mg PO DAILY ibuprofen (Children's Ibuprofen) 600 mg (30 mL) PO Q6H PRN 30 days Lactobacillus rhamnosus GG (Culturelle) 1 cap PO DAILY meclizine 25 mg PO TID PRN 30 days methocarbamol 750 mg PO Q8H PRN multivitamin with folic acid 400 mcg (Daily-Meri (with folic acid)) 1 tab PO DAILY ondansetron 4 mg PO Q6H PRN 30 days Proctosol HC 2.5% (hydrocortisone) 1 appl OR BID PRN NS riboflavin (vitamin B2) (Vitamin B-2) 400 mg (4 x 100 mg) PO DAILY 90 days sodium chloride 0.65% (Saline Nasal) sprays intranasal sumatriptan succinate 50 - 100 mg orally at onset of headache, may repeat in 2 hrs PRN; max 2 tabs per day or 4 tabs/week (may take with Ibuprofen) 30 days HPI Comments Details: 39-yr-old female presents for for new concern of left foot vibration, in setting of known migraine. Pt reports on Monday night, 11/05/24, pt started to notice left foot vibration sensation, which has persisted since. She went to the urgent care- per pt- labs were neg for diabetes. She has a h/o this similar sensation in the right foot- but was brief and self-subsided. Her fee She states her feet always hurt d/t h/o plantar fascitis, distal BLE swelling- had ER eval with negative w/ negative BLE US. Recently left 2nd toe nail has been discolored- lost that toe nail in the past. She dneis recent falls, near falls, tripping, accidents, infection, fever. Denies recent BLE swelling, LLE redness, ulcers. 07/02/24, HPI: Pt denies any significant interval medical changes. She reports increased stress, which can impact her sleep, diet, overall physical activity. She notes slight weight increase, secondary to taking a course of prednisone for asthma exacerbation last couple of months, or is now feeling better She has returned to school, she is trying to study for the [employer] exam She would like to discuss starting prescription migraine treatment today. Patient states she is noticing more migraine which is lasting longer and not responding to ibuprofen/Tylenol/increase fluid intake, but less general mild day-to-day headaches. Pt reports her migraines occur typically when stressed, but sometimes before, and always after her menstrual cycle. Notices left TMJ region discomfort during this headache- imelda with talking. She is now having 2 migraines per month, which last 3-4 days in total. She is having less overall mild headache- no longer daily. Mild headache may feel like head pressure especially if she stands quickly. Her last migraine with visual aura was in March. Still has a pre/postmenstrual migraine. Can be dizzy/off-balance at onset of migraine. Has a h/o clenching her jaw in her sleep- does not have a mouth guard- is missing mx teeth. Typical migraine w/ visual aura- lightening bolt/squiggling lines w/ visual loss x's 30-45 minutes f/b severe migraine- just 2-3 x's in the last year. Typical mild-mod migraine starts as brief dizziness, mod-severe pressure headache in usually top/crown or less often front of the head. A/w vision feeling crooked, mild photophobia, mild phonophobia. Triggers- just before/after menses, caffeine, stress. [facility] Medical History Anxiety Asthma Surgical History Hx of tonsillectomy Family History Father Heart disease Mother Migraine Heart disease Social History Alcohol intake: never Patient Tobacco Use Status: Never used Tobacco Physical Exam Vital Signs: Last Vital Signs Pulse 99 11/08/24 09:46 BP 130/76 11/08/24 09:46 Pulse Ox 99 11/08/24 09:46 Oxygen Delivery Method Room Air 11/08/24 09:46 BMI result Body Mass Index 49.9 Const General: cooperative and no acute distress Resp Effort & Inspection: normal respiratory effort and able to speak in complete sentences Neuro Other: Mental Status: Alert and oriented ?3. Speech fluent, no dysarthria. Cranial Nerves: II?XII grossly intact. Motor: Lower extremities: Strength 5/5 bilaterally. No visible fasciculations or atrophy. Sensation: Light touch, sharp, vibration, and position sense intact bilaterally in lower extremities, except for bilateral dorsal pedal hypersensitivity to sharp touch. Reflexes: Lower extremities: DTRs 1+ bilaterally. Gait: Good stride, steady gait Extremities & Vascular: Mild distal bilateral lower extremity swelling. Signs of bilateral lower extremity varicose veins appreciated Bilateral pedal pulses 2+, bilateral medial ankle pulses 2+. Applying pressure to the left medial ankle temporarily alleviates internal vibration sensation in the left foot. Tremor: No visible or palpable vibration or tremor in either lower extremity. Musculoskeletal: Increased tightness with bilateral ankle range of motion, more pronounced on the left, causing calf tightness. Psych Appearance: grossly normal Mental Status: mental status grossly normal Speech and movement: Normal speech and movement present Affect: normal affect Attitude: cooperative Assessment & Plan Assessment & Plan (1) Paresthesia of left foot: Code(s): R20.2 - Paresthesia of skin Category: Medical (2) Swelling of lower extremity: Code(s): M79.89 - Other specified soft tissue disorders Category: Medical (3) Varicose veins of both lower extremities: Code(s): I83.93 - Asymptomatic varicose veins of bilateral lower extremities Category: Medical Qualifiers: Varicose vein complication: unspecified Qualified Code(s): I83.93 - Asymptomatic varicose veins of bilateral lower extremities (4) Migraine with aura: Code(s): G43.109 - Migraine with aura, not intractable, without status migrainosus Category: Medical Qualifiers: Status migrainosus presence: without status migrainosus Intractability: not intractable Qualified Code(s): G43.109 - Migraine with aura, not intractable, without status migrainosus (5) Muscle cramps: Code(s): R25.2 - Cramp and spasm Category: Medical (6) Dizziness: Code(s): R42 - Dizziness and giddiness Category: Medical (7) Menstrual migraine: Code(s): G43.829 - Menstrual migraine, not intractable, without status migrainosus Category: Medical Qualifiers: Intractability: not intractable Status migrainosus presence: with status migrainosus Qualified Code(s): G43.821 - Menstrual migraine, not intractable, with status migrainosus Plan For new onset left foot internal vibration sensation, in setting of bilateral lower extremity distal swelling and varicose veins and plantar fasciitis, we will initiate workup for underlying etiologies. Please note, the patient has increased health anxieties related to her mother passing away at age 52 from a reported cardiac versus blood clot/embolism. Check labs today. We will request bilateral lower extremity ultrasound venous and arterial Follow-up with podiatry as scheduled Simple but exercises shared with patient. 11/08/2024, addendum, majority of lab results reviewed, reviewed results notable for negative D-dimer. These results were relayed to patient. In the meantime, continue plan of care as below: For dizziness: Improved, we will monitor We have held previous order for Brain MRI to further assess dizziness- previously not completed d/t pt is claustrophobic. [address]- unremarkable. For migraine prevention: Continue Riboflavin. Premenstrual migraine: May try taking 1 cup of at a [place] per day at onset of menstrual cycle, and hopes this reduces severity of post menstrual migraine attack For acute migraine treatment: Trial Sumatriptan 100mg tab, 1/2 - 1 tab (50-100mg) at onset of headache, may repeat in 2 hours. Max of 2 tabs (200mg) per 24 hours. May take sumatriptan with Tylenol and ibuprofen as below. Potential adverse effects of triptans, include but are not limited to nausea, fatigue, chest tightness/tingling (usually passes within a few minutes), medication overuse headaches. Continue Children's liquid Ibuprofen- pt requests grape flavor only d/t strawberry/maurice allergy. Allergy consult as scheduled in Nov- to clarify if there are allergy concerns w/ flavored liquid meds- ? if completed. Continue Tylenol prn. Continue prn Meclizine. Continue prn Zofran ODT 4mg- pt cannot take tablet version d/t peanut allergies. Consider trying a simple OTC mouth guard. Previous trials: Mag- caused constipation. f/u in 6 months or sooner prn. Pt to follow-up in 6 months or sooner prn. Orders: Orders US venous duplex LE 11/08/24 E66.01 - Morbid (severe) obesity due to excess calories, E78.00 - Pure hypercholesterolemia, unspecified, I83.93 - Asymptomatic varicose veins of bilateral lower extremities, M79.89 - Other specified soft tissue disorders, R20.2 - Paresthesia of skin Comprehensive [place]. Panel Fast 11/08/24 E66.01 - Morbid (severe) obesity due to excess calories, E78.00 - Pure hypercholesterolemia, unspecified, M79.89 - Other specified soft tissue disorders, R20.2 - Paresthesia of skin, R25.2 - Cramp and spasm TSH reflex Free T4 11/08/24 E66.01 - Morbid (severe) obesity due to excess calories, E78.00 - Pure hypercholesterolemia, unspecified, M79.89 - Other specified soft tissue disorders, R20.2 - Paresthesia of skin, R25.2 - Cramp and spasm Vitamin B6 11/08/24 D64.9 - Anemia, unspecified, E66.01 - Morbid (severe) obesity due to excess calories, E78.00 - Pure hypercholesterolemia, unspecified, M79.89 - Other specified soft tissue disorders, R20.2 - Paresthesia of skin, R25.2 - Cramp and spasm Ferritin 11/08/24 E66.01 - Morbid (severe) obesity due to excess calories, E78.00 - Pure hypercholesterolemia, unspecified, M79.89 - Other specified soft tissue disorders, R20.2 - Paresthesia of skin, R25.2 - Cramp and spasm Creatine Kinase Total 11/08/24 E66.01 - Morbid (severe) obesity due to excess calories, E78.00 - Pure hypercholesterolemia, unspecified, M79.89 - Other specified soft tissue disorders, R20.2 - Paresthesia of skin, R25.2 - Cramp and spasm Magnesium 11/08/24 E66.01 - Morbid (severe) obesity due to excess calories, E78.00 - Pure hypercholesterolemia, unspecified, M79.89 - Other specified soft tissue disorders, R20.2 - Paresthesia of skin, R25.2 - Cramp and spasm Hemoglobin A1c 11/08/24 E66.01 - Morbid (severe) obesity due to excess calories, E78.00 - Pure hypercholesterolemia, unspecified, M79.89 - Other specified soft tissue disorders, R20.2 - Paresthesia of skin, R25.2 - Cramp and spasm Mixing Study (PT/PTT) 11/08/24 E66.01 - Morbid (severe) obesity due to excess calories, E78.00 - Pure hypercholesterolemia, unspecified, M79.89 - Other specified soft tissue disorders, R20.2 - Paresthesia of skin, R25.2 - Cramp and spasm US arterial duplex LE BI 11/08/24 E66.01 - Morbid (severe) obesity due to excess calories, E78.00 - Pure hypercholesterolemia, unspecified, I83.93 - Asymptomatic varicose veins of bilateral lower extremities, M79.89 - Other specified soft tissue disorders, R20.2 - Paresthesia of skin D Dimer High Sensitivity 11/08/24 E66.01 - Morbid (severe) obesity due to excess calories, E78.00 - Pure hypercholesterolemia, unspecified, M79.89 - Other specified soft tissue disorders, R20.2 - Paresthesia of skin, R25.2 - Cramp and spasm Complete Blood Count Auto Diff 11/08/24 E66.01 - Morbid (severe) obesity due to excess calories, E78.00 - Pure hypercholesterolemia, unspecified, M79.89 - Other specified soft tissue disorders, R20.2 - Paresthesia of skin, R25.2 - Cramp and spasm Vitamin B12 and Folate 11/08/24 E66.01 - Morbid (severe) obesity due to excess calories, E78.00 - Pure hypercholesterolemia, unspecified, M79.89 - Other specified soft tissue disorders, R20.2 - Paresthesia of skin, R25.2 - Cramp and spasm IRON PROFILE 11/08/24 D64.9 - Anemia, unspecified, E66.01 - Morbid (severe) obesity due to excess calories, E78.00 - Pure hypercholesterolemia, unspecified, M79.89 - Other specified soft tissue disorders, R20.2 - Paresthesia of skin, R25.2 - Cramp and spasm C Reactive Protein 11/08/24 E66.01 - Morbid (severe) obesity due to excess calories, E78.00 - Pure hypercholesterolemia, unspecified, M79.89 - Other specified soft tissue disorders, R20.2 - Paresthesia of skin, R25.2 - Cramp and spasm Erythrocyte Sedimentation Rate 11/08/24 E66.01 - Morbid (severe) obesity due to excess calories, E78.00 - Pure hypercholesterolemia, unspecified, M79.89 - Other specified soft tissue disorders, R20.2 - Paresthesia of skin, R25.2 - Cramp and spasm Prothrombin Time INR 11/08/24 E66.01 - Morbid (severe) obesity due to excess calories, E78.00 - Pure hypercholesterolemia, unspecified, M79.89 - Other specified soft tissue disorders, R20.2 - Paresthesia of skin, R25.2 - Cramp and spasm Coding Level of Care Code Est Pt Level 4 (79320) Diagnoses Paresthesia of left foot R20.2 Swelling of lower extremity M79.89 Varicose veins of both lower extremities, unspecified whether complicated I83.93 Varicose vein complication: unspecified Migraine with aura and without status migrainosus, not intractable G43.109 Status migrainosus presence: without status migrainosus Intractability: not intractable Muscle cramps R25.2 Dizziness R42 Menstrual migraine with status migrainosus, not intractable G43.821 Intractability: not intractable Status migrainosus presence: with status migrainosus
== END 2024-11-08 10:41 | disposition home or self-care (01) ==
LOC: HO.HSMS 09:03
PROVIDERS: PCP Internal Medicine; Visit Provider Nurse Practitioner Family
DX: R20.2 Paresthesia of skin (principal); M79.89 Other specified soft tissue disorders; I83.93 Asymptomatic varicose veins of bilateral lower extremities; G43.109 Migraine with aura, not intractable, without status migrainosus; R25.2 Cramp and spasm; R42 Dizziness and giddiness; G43.821 Menstrual migraine, not intractable, with status migrainosus
CPT/HCPCS: 99214

== ENCOUNTER 2024-11-08 09:03 | Outpatient (REF) | payer OTHER, SELFPAY ==
[2024-11-08 11:22] LABS: MANUAL DIFF FLAG NO
[2024-11-08 11:34] LABS: Hematocrit 37.3 % (37.0-47.0); Hemoglobin 12.2 g/dl (12.0-16.0); INTERNATIONAL NORM RATIO 1.0 (0.9-1.1); Imm Gran Abs Auto 0.01 X10*3/uL (0.00-0.03); Imm Gran Pct Auto 0.1 % (0.0-0.4); Lymphocytes Absolute Auto 1.7 X10*3/uL (1.2-4.9); Mean Corpuscular HGB Conc 32.7 g/dl (31.0-35.0); Mean Corpuscular Hemoglobin 25.9 pg (27.0-33.0); Mean Corpuscular Volume 79.2 fL (80.0-98.0); NRBC Abs Auto 0.000 X10*3/uL (0.0-0.012); NRBC Pct Auto 0.0 /100WBC (0.0-0.2); Platelet Count 207 X10*3/uL (160-400); Prothrombin Time 11.3 SEC (10.9-12.4); Red Blood Count 4.71 X10*6/uL (4.20-5.50); White Blood Count 8.1 X10*3/uL (4.8-10.8)
[2024-11-08 11:36] LABS: D Dimer High Sensitivity 185 NG/ML
[2024-11-08 11:40] LABS: Hemoglobin A1C 100.6540 umol/L; Partial Thromboplastin Time 28.8 SEC (26.7-34.1); Total Hemoglobin (HGBA1C) 3183.2172 umol/L
[2024-11-08 11:53] LABS: Alanine Aminotransferase 18 U/L (0-31); Albumin Level 4.2 g/dL (3.5-5.0); Alkaline Phosphatase 79 U/L (39-117); Anion Gap 9 (12-20); Aspartate Amino Transferase 21 U/L (5-31); Blood Urea Nitrogen 12 mg/dL (9-16); Calcium 8.9 mg/dL (8.4-10.2); Carbon Dioxide 27 mmol/L (22-29); Chloride 107 mmol/L (96-108); Estimated Glomerular Filt Rate > 60; Iron 19 mcg/dL (30-160); Magnesium 1.9 mg/dL (1.6-2.6); Percent Iron Saturation 6 % (15-50); Potassium 4.0 mmol/L (3.3-5.1); Sodium 139 mmol/L (135-145); Total Iron Binding Capacity 318 mcg/dL (228-428); Total Protein 7.0 g/dL (6.5-8.0); Unsaturated Iron Binding 299 ug/dL
[2024-11-08 12:07] LABS: Ferritin 15 ng/mL (10-250)
[2024-11-08 12:27] LABS: Folate > 20.0 ng/mL (> or = 4.0); Vitamin B12 512 pg/mL (200-900)
== END 2024-11-08 09:04 | disposition home or self-care (01) ==
LOC: HO.LAB 09:03
PROVIDERS: PCP Internal Medicine; Visit Provider Nurse Practitioner Family
DX: G43.821 Menstrual migraine, not intractable, with status migrainosus (principal); G43.109 Migraine with aura, not intractable, without status migrainosus; I83.93 Asymptomatic varicose veins of bilateral lower extremities; M79.89 Other specified soft tissue disorders; R20.2 Paresthesia of skin; R25.2 Cramp and spasm; R42 Dizziness and giddiness; E78.00 Pure hypercholesterolemia, unspecified; E66.01 Morbid (severe) obesity due to excess calories; D64.9 Anemia, unspecified; Z68.42 Body mass index [BMI] 45.0-49.9, adult; Z79.899 Other long term (current) drug therapy
CPT/HCPCS: 36415; 80053; 82550; 82607; 82728; 82746; 83036; 83540; 83735; 84207; 84443; 85025; 85379; 85610; 85652; 85730; 86140; 99212

== ENCOUNTER 2024-11-30 19:42 | Emergency (ER) | payer OTHER, SELFPAY ==
[2024-11-30 19:44] VITALS: BP 144/71; PULSE 98; RESP 16; TEMP 36.2; O2SAT 96; BMI 49.1
--- NOTE | 2024-11-30 19:52 | ECG_ITS ---
Test Reason : CHEST PAIN Blood Pressure : */* mmHG Vent. Rate : 83 BPM Atrial Rate : 83 BPM P-R Int : 144 ms QRS Dur : 82 ms QT Int : 348 ms P-R-T Axes : 57 11 29 degrees QTcB Int : 408 ms Normal sinus rhythm with sinus arrhythmia Normal ECG When compared with ECG of 27-Jul-2024 14:11, No significant change was found Referred By: Yariel Escobar Electronically Signed By: TAD ROBERTSON
--- NOTE | 2024-11-30 19:52 | ED.GENADULT ---
HPI - General Adult General Chief complaint: General Medical Stated complaint: exposure carbon monoxide Time Seen by Provider: 11/30/24 20:40 Source: patient, RN notes reviewed and old records reviewed Mode of arrival: ambulatory Limitations: no limitations History of Present Illness ED Provider: Luz HPI narrative: 39-year-old female with a past medical history significant for peripheral vascular disease, IBS, eczema, hyperlipidemia, hypertension presenting for evaluation of carbon dioxide poisoning The patient reports that she was home with her 2 sons. The carbon monoxide detector went off briefly She called the fire department and they detected CO levels at 14 parts per million The patient complains of a headache. She also reports chest pain that she would use a related to anxiety. Denies any shortness of breath She reports this is the 4th time that this has happened at her apartment Related Data Home Medications ?Medication ?Instructions ?Recorded ?Confirmed cholecalciferol (vitamin D3) 50 50 mcg PO DAILY 05/07/21 11/08/24 mcg (2,000 unit) tablet fluticasone propionate 230 2 puff PO BID 05/07/21 11/08/24 mcg-salmeterol 21 mcg/actuation HFA inhaler (Advair HFA) folic acid 800 mcg tablet 0.8 mg PO DAILY 05/07/21 11/08/24 multivitamin with folic acid 400 1 tab PO DAILY 05/07/21 11/08/24 mcg tablet (Daily-Meri (with folic acid)) sodium chloride 0.65 % nasal spray spray intranasal 05/07/21 11/08/24 aerosol (Saline Nasal) diphenhydramine HCl 25 mg capsule 25 mg PO TID PRN 05/17/21 11/08/24 (Banophen) biotin 5 mg capsule 5 mg PO DAILY 08/20/21 11/08/24 cetirizine 10 mg tablet 20 mg PO DAILY PRN allergies 08/20/21 11/08/24 fluticasone propionate 50 2 spray intranasal DAILY PRN 09/10/21 11/08/24 mcg/actuation nasal spray,suspension acetaminophen 325 mg tablet 325 mg PO Q4H PRN pain 03/29/22 11/08/24 Previous Rx's ?Medication ?Instructions ?Recorded albuterol sulfate 2.5 mg/3 mL 2.5 mg (3 mL) inhalation Q4-6H PRN 11/07/20 (0.083 %) solution for nebulization bronchospasm #15 mL albuterol sulfate 90 mcg/actuation 2 puff inhalation Q4-6H PRN 11/07/20 aerosol inhaler shortness of breath or wheezing #6.7 grams docusate sodium 100 mg capsule 100 mg PO .DAILY WITH FOOD 30 days 05/06/22 (Colace) #30 caps dicyclomine 20 mg tablet 20 mg PO QID 30 days #120 tabs 11/15/22 benzonatate 200 mg capsule 200 mg PO TID 7 days #21 caps 05/15/23 ibuprofen 100 mg/5 mL oral 600 mg (30 mL) PO Q6H PRN pain 30 07/04/23 suspension (Children's Ibuprofen) days #473 mL Lactobacillus rhamnosus GG 10 1 cap PO DAILY #30 caps 08/29/23 billion cell capsule (Culturelle) Proctosol HC 2.5 % topical cream 1 appl MD BID PRN hemorrhoids 08/29/23 perineal applicator #28.35 grams (hydrocortisone) famotidine 40 mg tablet 40 mg PO BID 90 days #180 tabs 08/29/23 cyclobenzaprine 5 mg tablet 5 mg PO TID PRN muscle spasm #14 09/15/23 tabs riboflavin (vitamin B2) 100 mg 400 mg (4 x 100 mg) PO DAILY 90 10/06/23 tablet (Vitamin B-2) days #360 tabs meclizine 25 mg tablet 25 mg PO TID PRN dizziness 30 days 12/19/23 #20 tabs ondansetron 4 mg disintegrating 4 mg PO Q6H PRN nausea and 12/19/23 tablet vomiting 30 days #20 tabs sumatriptan succinate 100 mg tablet 50 - 100 mg (0.5 - 1 x 100 mg) PO 07/02/24 .COMPLEX PRN migraine headache 30 days #12 tabs methocarbamol 750 mg tablet 750 mg PO Q8H PRN pain, moderate 07/27/24 #12 tabs ferrous gluconate 324 mg (38 mg 324 mg PO DAILY 30 days #30 tabs 11/08/24 iron) tablet Allergies Allergy/AdvReac Type Severity Reaction Status Date / Time peanut (PEANUT) Allergy Severe ANAPHYLAXIS Verified 11/30/24 19:49 clindamycin (CLINDAMYCIN) Allergy Mild UNKNOWN Verified 11/30/24 19:49 strawberry Allergy Mild Abdominal Verified 11/30/24 19:49 Pain amoxicillin (From Augmentin) Allergy Unknown Unknown Verified 11/30/24 19:49 cefaclor (From CECLOR) Allergy Unknown UNKNOWN Verified 11/30/24 19:49 clavulanic acid (From Allergy Unknown Unknown Verified 11/30/24 19:49 Augmentin) erythromycin base Allergy Unknown RASH Verified 11/30/24 19:49 (ERYTHROMYCIN BASE) lemon (Lemon) AdvReac Unknown VOMITING Verified 11/30/24 19:49 SEAFOOD Allergy Severe ANAPHYLAXIS Uncoded 11/30/24 19:49 berries Allergy Unknown Unknown Uncoded 11/30/24 19:49 Review of Systems Constitutional: Constitutional: Denies body ache(s), Denies chills, Denies fever(s), Denies frequent falls and Denies headache(s) Eyes: Eyes: Denies blurry vision and Denies exophthalmos ENT: Denies vertigo, Denies dizziness and Denies headache(s) Cardiovascular: Cardiovascular: Reports chest pain and Denies dyspnea on exertion Respiratory: Respiratory: Denies cough and Denies dyspnea on exertion Gastrointestinal: Gastrointestinal: Denies abdominal pain, Denies nausea and Denies vomiting Musculoskeletal: Musculoskeletal: Denies back pain Integumentary/Breasts: Skin/Breast: Denies rash Neurologic: Denies vertigo, Denies dizziness, Denies frequent falls and Denies headache(s) Psychiatric: Psychiatric: Reports anxiety [facility] Past Medical History Medical History Anxiety Asthma Surgical History Hx of tonsillectomy Family History Family History Father Heart disease Mother Migraine Heart disease Social History Social History Alcohol intake: never Patient Tobacco Use Status: Never used Tobacco Advance Directives: No Advance Directives Information Provided: Yes Do you have a plan to hurt others: No Plan Physical Exam ED Vital Signs: Vital Signs - 24 hr 11/30/24 19:44 Temperature 97.2 F Pulse Rate 98 Respiratory Rate 16 Blood Pressure 144/71 H Pulse Oximetry 96 Oxygen Delivery Method Room Air BMI result Body Mass Index 49.1 Const General: healthy appearing, comfortable, no acute distress, alert and awake Nutritional Appearance: well nourished Orientation/consciousness: patient oriented x3 HENMT Head: Yes normocephalic and Yes atraumatic Eyes Eyelids: Yes eyelids normal Conjunctivae: conjunctivae normal Sclerae: sclerae normal Corneas: corneas normal Pupils: Equal, round and reactive pupils present EOM: EOMs intact bilaterally Neck Neck: Yes full ROM Resp Effort & Inspection: normal respiratory effort, able to speak in complete sentences, no audible wheezes and not labored Auscultation: clear to auscultation bilaterally Cardio Rate: regular rate Rhythm: regular rhythm GI Inspection: No distended Palpation (GI): Soft to palpation, not firm, nontender, no guarding and not rigid Skin General skin exam: elasticity normal Neuro General: patient oriented x3 Cranial nerves: Yes CN's II-XII intact bilaterally, Yes Equal, round and reactive pupils present and Yes Bilaterally intact EOM present Cognition (Neuro): normal cognition Extrem Other: Moving all extremities well without any obvious deformities Course Course Course Narrative: RME, this is a rapid medical exam performed by Dagoberto Escobar please refer to primary provider for complete H&P- 39-year-old female presents for evaluation of carbon monoxide exposure. She reports that the carbon dioxide detector went off at her house, the fire department came and confirmed that there was carbon dioxide in the house. She complains of a headache but no other symptoms. She has a history of asthma. She is advised to be evaluated. Patient also complains of chest pain which she believes is related to anxiety. We will get labs and an EKG. Medical Decision Making Medical Decision Making MDM Narrative: 39-year-old female presents for evaluation of any carbon dioxide exposure. She complains of a headache and chest pain. She believes her chest pain is related to anxiety, her EKG is nonischemic, troponin is negative, this is less likely to be ACS. Lungs are clear to auscultation, vital signs are stable. The patient's carbon dioxide level was measured at 2.6 which is slightly above normal for nonsmokers. We will oxygen 8 the patient then she will be safe for discharge. Differential Diagnosis Differential Diagnoses: The differential diagnosis associated with the presentation includes COVID Exposure Carbon dioxide poisoning Anxiety Chest pain ACS Admission/Observation Consideration of admission/observation: Escalation of care including admission/observation considered Lab Data MDM Lab Attestation statement: I reviewed the patient's lab results. No leukocytosis or anemia. Normal platelet count. No significant electrolyte abnormalities warranting intervention. Troponin negative. Carbon dioxide level is 2.6 11/30/24 20:01 11/30/24 20:01 Labs: Lab Results 11/30/24 11/30/24 Range/Units 20:01 20:09 WBC 8.2 (4.8-10.8) X10*3/uL RBC 4.76 (4.20-5.50) X10*6/uL Hgb 12.5 (12.0-16.0) g/dl Hct 37.8 (37.0-47.0) % MCV 79.4 L (80.0-98.0) fL MCH 26.3 L (27.0-33.0) pg MCHC 33.1 (31.0-35.0) g/dl RDW 14.8 (11.0-16.0) % Plt Count 215 (160-400) X10*3/uL MPV 10.2 (9.4-12.3) fL Immature Gran % (Auto) 0.1 (0.0-0.4) % Neut % (Auto) 65.4 (45-73) % Lymph % (Auto) 26.5 (20-40) % [place] % (Auto) 5.7 (2-11) % Eos % (Auto) 1.8 (0-4) % Baso % (Auto) 0.5 (0-2) % Lymph # (Auto) 2.2 (1.2-4.9) X10*3/uL [place] # (Auto) 0.5 (0.1-1.2) X10*3/uL Eos # (Auto) 0.2 (0.0-0.4) X10*3/uL Baso # (Auto) 0.0 (0.0-0.2) X10*3/uL Abs Immat Gran (auto) 0.01 (0.00-0.03) X10*3/uL Absolute Neuts (auto) 5.4 (2.0-8.3) x10*3/uL Absolute Nucleated RBC 0.000 (0.0-0.012) X10*3/uL Nucleated RBC % (auto) 0.0 (0.0-0.2) /100WBC Carboxyhemoglobin % Cancelled 2.6 Sodium 142 (135-145) mmol/L Potassium 3.8 (3.3-5.1) mmol/L Chloride 110 H (96-108) mmol/L Carbon Dioxide 23 (22-29) mmol/L Anion Gap 13 (12-20) BUN 11 (9-16) mg/dL Creatinine 0.84 (0.5-1.4) mg/dL Estim Creat Clear Calc 123.3 Estimated GFR > 60 Random Glucose 98 (60-115) mg/dL Calcium 9.0 (8.4-10.2) mg/dL Total Bilirubin 0.3 (0.0-1.0) mg/dL AST 19 (5-31) U/L ALT 14 (0-31) U/L Alkaline Phosphatase 81 (39-117) U/L Troponin I High Sens < 2.7 (<3.5-17.0) ng/L Total Protein 7.2 (6.5-8.0) g/dL Albumin 4.2 (3.5-5.0) g/dL Lipase 16 (8-78) U/L Discharge Plan Discharge Clinical Impression: Carbon monoxide exposure, Chest pain Patient Disposition: Home, Self-Care Instructions: Chest Pain (ED), Carbon Monoxide Poisoning (ED) Additional Instructions: Your carbon monoxide level was 2.6, this is just above the accepted level of normal for a nonsmoker The remainder of your workup was quite reassuring. Your EKG and blood work old female pain Your chest pain may have been related to anxiety Prescriptions: No Action docusate sodium [Colace] 100 mg capsule 100 mg PO .DAILY WITH FOOD 30 Days Qty: 30 6RF riboflavin (vitamin B2) [Vitamin B-2] 100 mg tablet 400 mg PO DAILY 90 Days Qty: 360 3RF ferrous gluconate 324 mg (38 mg iron) tablet 324 mg PO DAILY 30 Days Qty: 30 3RF albuterol sulfate 2.5 mg /3 mL (0.083 %) solution for nebulization 2.5 mg inhalation Q4-6H PRN (Reason: bronchospasm) Qty: 15 0RF albuterol sulfate 90 mcg/actuation HFA aerosol inhaler 2 puff inhalation Q4-6H PRN (Reason: shortness of breath or wheezing) Qty: 6.7 0RF benzonatate 200 mg capsule 200 mg PO TID 7 Days Qty: 21 0RF cyclobenzaprine 5 mg tablet 5 mg PO TID PRN (Reason: muscle spasm) Qty: 14 0RF methocarbamol 750 mg tablet 750 mg PO Q8H PRN (Reason: pain, moderate) Qty: 12 0RF diphenhydramine HCl [Banophen] 25 mg capsule 25 mg PO TID PRN biotin 5 mg capsule 5 mg PO DAILY cetirizine 10 mg tablet 20 mg PO DAILY PRN (Reason: allergies) fluticasone propionate 50 mcg/actuation spray,suspension 2 spray intranasal DAILY PRN acetaminophen 325 mg tablet 325 mg PO Q4H PRN (Reason: pain) dicyclomine 20 mg tablet 20 mg PO QID 30 Days Qty: 120 1RF cholecalciferol (vitamin D3) 50 mcg (2,000 unit) tablet 50 mcg PO DAILY Advair HFA 230-21 mcg/actuation HFA aerosol inhaler 2 puff PO BID Saline Nasal 0.65 % aerosol,spray intranasal folic acid 800 mcg tablet 0.8 mg PO DAILY multivitamin with folic acid [Daily-Meri (with folic acid)] 400 mcg tablet 1 tab PO DAILY ibuprofen [Children's Ibuprofen] 100 mg/5 mL suspension 600 mg PO Q6H PRN (Reason: pain) 30 Days Qty: 473 3RF Rx Instructions: Grape flavor (d/t maurice allergy) Culturelle 10 billion cell capsule 1 cap PO DAILY Qty: 30 6RF famotidine 40 mg tablet 40 mg PO BID 90 Days Qty: 180 1RF hydrocortisone [Proctosol HC] 2.5 % cream with perineal applicator 1 appl MD BID PRN (Reason: hemorrhoids) Qty: 28.35 3RF ondansetron 4 mg tablet,disintegrating 4 mg PO Q6H PRN (Reason: nausea and vomiting) 30 Days Qty: 20 3RF meclizine 25 mg tablet 25 mg PO TID PRN (Reason: dizziness) 30 Days Qty: 20 3RF sumatriptan succinate 100 mg tablet 50 - 100 mg PO .COMPLEX PRN (Reason: migraine headache) 30 Days Qty: 12 6RF Rx Instructions: 50 - 100 mg orally at onset of headache, may repeat in 2 hrs PRN; max 2 tabs per day or 4 tabs/week (may take with Ibuprofen) Print Language: Irish
[2024-11-30 20:00] VITALS: BP 144/71; PULSE 98; RESP 16; TEMP 36.2; O2SAT 96
[2024-11-30 20:07] LABS: MANUAL DIFF FLAG NO
[2024-11-30 20:11] LABS: Hematocrit 37.8 % (37.0-47.0); Hemoglobin 12.5 g/dl (12.0-16.0); Imm Gran Abs Auto 0.01 X10*3/uL (0.00-0.03); Imm Gran Pct Auto 0.1 % (0.0-0.4); Lymphocytes Absolute Auto 2.2 X10*3/uL (1.2-4.9); Mean Corpuscular HGB Conc 33.1 g/dl (31.0-35.0); Mean Corpuscular Hemoglobin 26.3 pg (27.0-33.0); Mean Corpuscular Volume 79.4 fL (80.0-98.0); NRBC Abs Auto 0.000 X10*3/uL (0.0-0.012); NRBC Pct Auto 0.0 /100WBC (0.0-0.2); Platelet Count 215 X10*3/uL (160-400); Red Blood Count 4.76 X10*6/uL (4.20-5.50); White Blood Count 8.2 X10*3/uL (4.8-10.8)
[2024-11-30 20:12] LABS: Carbon Monoxide POC 2.6 %
[2024-11-30 20:25] LABS: Alanine Aminotransferase 14 U/L (0-31); Albumin Level 4.2 g/dL (3.5-5.0); Alkaline Phosphatase 81 U/L (39-117); Anion Gap 13 (12-20); Aspartate Amino Transferase 19 U/L (5-31); Blood Urea Nitrogen 11 mg/dL (9-16); Calcium 9.0 mg/dL (8.4-10.2); Carbon Dioxide 23 mmol/L (22-29); Chloride 110 mmol/L (96-108); Creatinine Clr Calc Pharmacy 123.3; Estimated Glomerular Filt Rate > 60; Lipase 16 U/L (8-78); Potassium 3.8 mmol/L (3.3-5.1); Sodium 142 mmol/L (135-145); Total Protein 7.2 g/dL (6.5-8.0)
[2024-11-30 20:33] LABS: Troponin-I High Sensitivity < 2.7 ng/L (<3.5-17.0)
--- OUTSIDE RECORDS SUMMARY | 2024-11-30 20:37 | XMS_ITS | Encounter Summary ---
Author Organization [facility] Address [address] [place] [address] Care Team Providers Care Operator And Truck Driver Name Role Phone Rae Boss DO Primary Care Pro vider Unavailable Chuck Cervantes MD Primary Care Provider Unavailab Erika Herrera MD Primary Care Provider [phone] Hollie Nicholas MD Primary Care Provider Karin Vyas MD Primary Care Provider [phone] Amy Block DNP Unavailable [phone] Carlee Marcelo MD Unavailable [phone] Reason for Visit * Reason Onset Date Comments Provider Call Back 01/23/2019 Encounter Details Date Type Department Care Team Description 01/23/2019 Telephone Adult Medicine [address] [id number] Rae Boss DO Provider Call Back Social History Tobacco Use Types Packs/Day Years [...] Telephone Encounter - Liliana José R.N. - 01/23/2019 8:54 AM EDT Pt has bitten over the weekend, no redness or drainage Bites are healing and she has no new or worsening symptoms . Will pass on information about mosquito bites to PCP, pt is reassured that she has no symptoms of concern and bites are not causing symptoms she has had FYI only * Telephone Encounter - Lynn Nash - 01/23/2019 8:41 AM EDT Caller requesting call back from provider: Is the caller the patient? YES If caller is not the patient, what is the callers name? N/A Callers relationship to patient? N/A If person calling is not the patient themselves, is there a verbal release in FYI or permanent comments for this person: Reason for call back: Patient saw PCP yesterday and forgot to mention the mosquito bites she has. Patient feels run down and wonders if she could be getting ill from the mosquitos. Patient called after hours yesterday and was told to call this morning to have a message put in for a call back. Caller offered to speak with the nurse for assistance: YES Response: Patient offered to speak with nurse for assistance and patient agreed. Message forwarded to nurse. documented in this encounter Plan of Treatment Not on file documented as of this encounter Visit Diagnoses Not on filedocumented in this encounter Care Teams Operator And Truck Driver Relationship Specialty Start Date End Date Rae Boss DO PCP - General Internal Medicine 11/20/14 08/19/20 Chuck Cervantes MD PCP - General Internal Medicine 08/20/20 11/22/20 Erika Burciaga MD [address] [place] [address] PCP - General Internal Medicine 11/23/20 03/28/21 Hollie Nicholas MD [address] [place], [place] [id number] PCP - General Internal Medicine 03/29/21 11/07/21 Karin Clemente MD [address] [place] [address] PCP - General Internal Medicine 11/08/21 Amy Block DNP [address] [place] [address] Specialist Nurse Practitioner Family 10/11/23 Carlee Marcelo MD [address] [place] [address] Specialist Cardiology 10/11/23 documented as of this encounter
--- OUTSIDE RECORDS SUMMARY | 2024-11-30 20:37 | XMS_ITS | Encounter Summary ---
Author Organization [facility] Address [address] [place] [address] Care Team Providers Care Yard Conductor Name Role Phone Rae Boss DO Primary Care Pro vider Unavailable Chuck Cervantes MD Primary Care Provider Unavailab Erika Herrera MD Primary Care Provider [phone] Hollie Nicholas MD Primary Care Provider Karin Vyas MD Primary Care Provider [phone] Amy Block DNP Unavailable Carlee Marcelo MD Unavailable [phone] Encounter Details Date Type Department Care Team Description 11/25/2017 Orders Only Adult Medicine [address] [id number] Rae Boss DO History of iron deficiency anemia (Primary Dx); Dyslipidemia Social History Tobacco Use Types Packs/Day Years [...] on file documented as of this encounter Results * (ABNORMAL) IRON/TIBC (11/28/2017 10:07 AM EDT) UNSATURATED IRON BINDING CAP 312 ug/dl 11/28/2017 12:03 PM EDT [facility] TIBC 359 152 - 496 ug/dL 11/28/2017 12:03 PM EDT [facility] IRON 47 40 - 150 ug/dL 11/28/2017 12:00 PM EDT [facility] % FE SATURATION 13(L) 15 - 50 % 8 12:03 PM EDT [facility] 11/28/2017 10:0 7 AM EDT 11/28/2017 10:08 AM EDT Rae Parker DO LAB [facility] [address] [facility] * FERRITIN ASSAY (11/28/2017 10:07 AM EDT) FERRITIN 14 13 - 150 ng/ml 11/28/2017 12:00 PM EDT [facility] 11/28/2017 10:0 7 AM EDT 11/28/2017 10:08 AM EDT Rae Parker DO LAB [facility] [address] [facility] * TSH (11/28/2017 10:07 AM EDT) TSH 1.92 0.40 - 4.00 mIU/ml 11/28/2017 12:00 PM EDT [facility] 11/28/2017 10:0 7 AM EDT 11/28/2017 10:08 AM EDT Rae Parker DO LAB Performing Organization Address City/State/[facility] Co de Phone Number [facility] [address] [facility] * BASIC METABOLIC PANEL (11/28/2017 10:07 AM EDT) GLUCOSE 77 70 - 100 mg/dL 11/28/2017 12:00 PM T [facility] Comment: Reference range applicable to fasting specimens only Based on recommendations from the ADA and AACE, the fasting glucose reference range has been changed to 70-100 mg/dL. This change is effective August 17, 2009 BUN 7 5 - 25 mg/dL 11/28/2017 12:00 PM T [facility] CREAT 0.8 0.7 - 1.5 mg/dL 11/28/2017 12:00 PM T [facility] GFR > 60 >60 11/28/2017 12:00 PM T [facility] Comment: If patient is -Italian, multiply result by 1.21 Chronic Kidney Disease: < 60 ml/min/1.73 square meters Kidney Failure: < 15 ml/min/1.73 square meters Sodium 138 133 - 145 mEq/L 11/28/2017 12:00 PM EDT [facility] Potassium 4.2 3.5 - 5.5 mEq/L 11/28/2017 12:00 PM EDT [facility] Chloride 100 96 - 108 mEq/L 11/28/2017 12:00 PM EDT [facility] CO2 25.5 21.0 - 32.0 mEq/L 11/28/2017 12:00 PM EDT [facility] CALCIUM 9.6 8.5 - 10.5 mg/dL 11/28/2017 12:00 PM EDT [facility] 11/28/2017 10:0 7 AM EDT 11/28/2017 10:08 AM EDT Rae Nancy Parker DO LAB [facility] [address] [place] [address] documented in this encounter Visit Diagnoses Diagnosis History of iron deficiency anemia- Primary Personal history of diseases of blood and blood-forming organs Dyslipidemia Other and unspecified hyperlipidemia documented in this encounter Care Teams Yard Conductor Relationship Specialty Start Date End Date Rae Boss DO PCP - General Internal Medicine 11/20/14 08/19/20 Chuck Cervantes MD PCP - General Internal Medicine 08/20/20 11/22/20 Erika Burciaga MD [address] [place], [place] [id number] PCP - General Internal Medicine 11/23/20 03/28/21 Hollie Nicholas MD [address] [place], [place] [id number] PCP - General Internal Medicine 03/29/21 11/07/21 Karin Clemente MD [address] [place] [address] PCP - General Internal Medicine 11/08/21 Amy Block DNP [address] [place] [address] Specialist Nurse Practitioner Family 10/11/23 Carlee Marcelo MD [address] [place] [address] Specialist Cardiology 10/11/23 documented as of this encounter
--- OUTSIDE RECORDS SUMMARY | 2024-11-30 20:37 | XMS_ITS | Encounter Summary ---
Author Organization [facility] Address [address] [place] [address] Care Team Providers Care Assistant Curator Name Role Phone Rae Boss DO Primary Care Pro vider Unavailable Chuck Cervantes MD Primary Care Provider Unavailab Erika Herrera MD Primary Care Provider [phone] Hollie Nicholas MD Primary Care Provider Karin Vyas MD Primary Care Provider [phone] Amy Block DNP Unavailable [phone] Carlee Marcelo MD Unavailable [phone] Encounter Details Date Type Department Care Team Description 06/27/2017 Night Triage Doc Medical Records [address] [place] [address] Abstract, Provider Social History Tobacco Use Types [...] on filedocumented in this encounter Care Teams Assistant Curator Relationship Specialty Start Date End Date Rae Boss DO PCP - General Internal Medicine 11/20/14 08/19/20 Chuck Cervantes MD PCP - General Internal Medicine 08/20/20 11/22/20 Erika Burciaga MD [address] [place] [address] PCP - General Internal Medicine 11/23/20 03/28/21 Hollie Nicholas MD [address] [place] [address] PCP - General Internal Medicine 03/29/21 11/07/21 Karin Clemente MD [address] [place], [place] [phone] PCP - General Internal Medicine 11/08/21 Amy Block DNP [address] [place] [address] Specialist Nurse Practitioner Family 10/11/23 Carlee Marcelo MD [address] [place] [id number] Specialist Cardiology 10/11/23 documented as of this encounter
--- OUTSIDE RECORDS SUMMARY | 2024-11-30 20:37 | XMS_ITS | Encounter Summary ---
Author Organization [facility] Address [address] [place] [address] Care Team Providers Care Financial Compliance Examiner Name Role Phone Rae Boss DO Primary Care Pro vider Unavailable Chuck Cervantes MD Primary Care Provider Unavailab Erika Herrera MD Primary Care Provider [phone] Hollie Nicholas MD Primary Care Provider Karin Vyas MD Primary Care Provider [phone] Amy Block DNP Unavailable [phone] Carlee Marcelo MD Unavailable [phone] Reason for Visit * Reason Onset Date Comments TEST RESULTS 12/01/2017 Encounter Details Date Type Department Care Team Description 12/01/2017 Telephone Adult Medicine [address] [id number] Rae Boss DO TEST RESULTS Social History [...] performed: 11/28/2017 [place] [facility] [place] Rae Gay Is [...] filedocumented in this encounter Care Teams Financial Compliance Examiner Relationship Specialty Start Date End Date Rae Boss DO PCP - General Internal Medicine 11/20/14 08/19/20 Chuck Cervantes MD PCP - General Internal Medicine 08/20/20 11/22/20 Erika Burciaga MD [address] [place] [address] PCP - General Internal Medicine 11/23/20 03/28/21 Hollie Nicholas MD [address] [place] [address] PCP - General Internal Medicine 03/29/21 11/07/21 Karin Clemente MD [address] [place] [address] PCP - General Internal Medicine 11/08/21 Amy Block DNP [address] [place] [address] Specialist Nurse Practitioner Family 10/11/23 Carlee Marcelo MD [address] [place] [id number] Specialist Cardiology 10/11/23 documented as of this encounter
--- OUTSIDE RECORDS SUMMARY | 2024-11-30 20:37 | XMS_ITS | Encounter Summary ---
Author Organization [facility] Address [address] [place] [address] Care Team Providers Care Health Advisor Name Role Phone Karin Clemente MD Primary Care Provider [phone] Amy Block DNP Unavailable [phone] Carlee Marcelo MD Unavailable [phone] Reason for Visit * Reason Comments E-prescribe Rx Request Encounter Details Date Type Department Care Team Description 01/24/2024 Refill Adult Medicine [address] [address] Alphonso Zimmerman, JOHN [address] [place] [address] [phone] E-prescribe Rx Request Social History Tobacco Use [...] N/A Patients current insurance carrier is: Payor: [facility] FFS / Plan: [facility] [employer] / Product Type: MEDICAID RISK documented in this encounter Plan of Treatment Not on file documented as of this encounter Visit Diagnoses Not on filedocumented in this encounter Care Teams Health Advisor Relationship Specialty Start Date End Date Karin Clemente MD [address] [place] [address] PCP - General Internal Medicine 11/08/21 Amy Block DNP [address] [place] [address] 42416 Specialist Nurse Practitioner Family 10/11/23 Carlee Marcelo MD [address] [place] [address] Specialist Cardiology 10/11/23 documented as of this encounter
--- OUTSIDE RECORDS SUMMARY | 2024-11-30 20:37 | XMS_ITS | Encounter Summary ---
Author Organization [facility] Address [address] [place] [address] Care Team Providers Care Face Painter Name Role Phone Karin Clemente MD Primary Care Provider [phone] Amy Block DNP Unavailable [phone] Carlee Marcelo MD Unavailable [phone] Encounter Details Date Type Department Care Team Description 08/26/2022 Pt. Non Urgent Medical Question Adult Medicine [address] [phone] Karin Clemente MD [address] [place] [address] [phone] Social History Tobacco Use Types Packs/Day Years [...] on filedocumented in this encounter Care Teams Face Painter Relationship Specialty Start Date End Date Karin Clemente MD [address] [place] [address] PCP - General Internal Medicine 11/08/21 Amy Block DNP [address] [place] [address] Specialist Nurse Practitioner Family 10/11/23 Carlee Marcelo MD [address] [place] [address]25 Specialist Cardiology 10/11/23 documented as of this encounter
--- OUTSIDE RECORDS SUMMARY | 2024-11-30 20:37 | XMS_ITS | Encounter Summary ---
Author Organization [facility] Address [address] [place] [address] Care Team Providers Care Intermission Coordinator Name Role Phone Erika Burciaga MD Primary Care Provider [phone] Hollie Nicholas MD Primary Care Provider Karin Vyas MD Primary Care Provider [phone] Aym Block DNP Unavailable [phone] Carlee Marcelo MD Unavailable [phone] Encounter Details Date Type Department Care Team Description 11/24/2020 Telephone OBGYN - 271 [facility] 271 [place] [address] Cherie Wilkinson, [facility] [address] [place] [address] Social History Tobacco Use Types Packs/Day Years [...] on filedocumented in this encounter Care Teams Intermission Coordinator Relationship Specialty Start Date End Date Erika Burciaga MD [address] [place] [address] PCP - General Internal Medicine 11/23/20 03/28/21 Hollie Nicholas MD [address] [place], [place] [phone] PCP - General Internal Medicine 03/29/21 11/07/21 Karin Clemente MD [address] [place] [address] PCP - General Internal Medicine 11/08/21 Amy Block DNP [address] [place] [address] 10862 Specialist Nurse Practitioner Family 10/11/23 Carlee Marcelo MD [address] [place] [address] 69[address] Specialist Cardiology 10/11/23 documented as of this encounter
--- OUTSIDE RECORDS SUMMARY | 2024-11-30 20:37 | XMS_ITS | Encounter Summary ---
Author Organization [facility] Address [address] [place] [address] Care Team Providers Care Customs Director Name Role Phone Karin Clemente MD Primary Care Provider [phone] Amy Block DNP Unavailable [phone] Carlee Marcelo MD Unavailable [phone] Reason for Visit * Reason Comments E-prescribe Rx Request Encounter Details Date Type Department Care Team Description 01/25/2024 Refill Pulmonology - [place] 175 [facility] [address] [place] [address] Shelly Ruiz APRN 175 [facility] 200 [place] [address] E-prescribe Rx Request Social History [...] trigger documented in this encounter Care Teams Customs Director Relationship Specialty Start Date End Date Karin Clemente MD [address] [place] [address] PCP - General Internal Medicine 11/08/21 Amy Block DNP [address] [place] [address]78 Specialist Nurse Practitioner Family 10/11/23 Carlee Marcelo MD [address] [place] [address] 31470 Specialist Cardiology 10/11/23 documented as of this encounter
--- OUTSIDE RECORDS SUMMARY | 2024-11-30 20:37 | XMS_ITS | Encounter Summary ---
Author Organization [facility] Address [address] [place] [address] Care Team Providers Care Echo Technician Name Role Phone Rae Boss DO Primary Care Pro vider Unavailable Chuck Cervantes MD Primary Care Provider Unavailab Erika Herrera MD Primary Care Provider [phone] Hollie Nicholas MD Primary Care Provider Karin Vyas MD Primary Care Provider [phone] Amy Block DNP Unavailable [phone] Carlee Marcelo MD Unavailable [phone] Reason for Visit * Reason Onset Date Comments medication problems 06/19/2019 Encounter Details Date Type Department Care Team Description 06/19/2019 Telephone Adult Medicine [address] [phone] Rae Boss DO medication problems Social History [...] on filedocumented in this encounter Care Teams Echo Technician Relationship Specialty Start Date End Date Rae Boss DO PCP - General Internal Medicine 11/20/14 08/19/20 Chuck Cervantes MD PCP - General Internal Medicine 08/20/20 11/22/20 Erika Burciaga MD [address] [place] [address] PCP - General Internal Medicine 11/23/20 03/28/21 Hollie Nicholas MD [address] [place] [address] 8[address] PCP - General Internal Medicine 03/29/21 11/07/21 Karin Clemente MD [address] [place] [address] [phone] PCP - General Internal Medicine 11/08/21 Amy Block DNP [address] [place] [address] Specialist Nurse Practitioner Family 10/11/23 Carlee Marcelo MD [address] [place] [address] [phone] Specialist Cardiology 10/11/23 documented as of this encounter
--- OUTSIDE RECORDS SUMMARY | 2024-11-30 20:37 | XMS_ITS | Encounter Summary ---
Author Organization [facility] Address [address] [place] [address] Care Team Providers Care Audit Director Name Role Phone Karin Clemente MD Primary Care Provider [phone] Amy Block DNP Unavailable [phone] Carlee Marcelo MD Unavailable [phone] Reason for Visit * Reason Onset Date Comments Faxed Refill 01/17/2024 Encounter Details Date Type Department Care Team Description 01/17/2024 Refill Adult Medicine [address] [phone] Karin Clemente MD [address] [place] [address] [phone] Faxed Refill Social History Tobacco Use Types [...] N/A Patients current insurance carrier is: Payor: [facility] FFS / Plan: [facility] [employer] / Product Type: MEDICAID RISK documented in this encounter Plan of Treatment Not on file documented as of this encounter Visit Diagnoses Not on filedocumented in this encounter Care Teams Audit Director Relationship Specialty Start Date End Date Karin Clemente MD [address] [place] [address] 0[address] PCP - General Internal Medicine 11/08/21 Amy Block DNP [address] [place] [address] Specialist Nurse Practitioner Family 10/11/23 Carlee Marcelo MD [address] [place] [address]26 Specialist Cardiology 10/11/23 documented as of this encounter
--- OUTSIDE RECORDS SUMMARY | 2024-11-30 20:37 | XMS_ITS | Encounter Summary ---
Author Organization [facility] Address [address] [place] [address] Care Team Providers Care Emergency Department Coordinator Name Role Phone Karin Clemente MD Primary Care Provider [phone] Amy Block DNP Unavailable [phone] Carlee Marcelo MD Unavailable [phone] Encounter Details Date Type Department Care Team Description 01/25/2024 Pt. Non Urgent Medical Question Adult Medicine [address] [phone] Alphonso Zimmerman, [employer] [address] [place], [place] [phone] Social History Tobacco Use Types Packs/Day Years [...] on filedocumented in this encounter Care Teams Emergency Department Coordinator Relationship Specialty Start Date End Date Karin Clemente MD [address] [place] [address] PCP - General Internal Medicine 11/08/21 Amy Block DNP [address] [place] [address]692 Specialist Nurse Practitioner Family 10/11/23 Carlee Marcelo MD [address] [place] [address] Specialist Cardiology 10/11/23 documented as of this encounter
--- OUTSIDE RECORDS SUMMARY | 2024-11-30 20:37 | XMS_ITS | Encounter Summary ---
Author Organization [facility] Address [address] [place] [address] Care Team Providers Care Security Field Supervisor Name Role Phone Erika Burciaga MD Primary Care Provider [phone] Hollie Nicholas MD Primary Care Provider Karin Vyas MD Primary Care Provider [phone] Amy Block DNP Unavailable [phone] Carlee Marcelo MD Unavailable [phone] Encounter Details Date Type Department Care Team Description 12/01/2020 Steam Tank Operator Report Medical Records [address] [place] [address] [address] Social History Tobacco Use Types Packs/Day Years [...] on filedocumented in this encounter Care Teams Security Field Supervisor Relationship Specialty Start Date End Date Erika Burciaga MD [address] [place] [address] PCP - General Internal Medicine 11/23/20 03/28/21 Hollie Nicholas MD [address] [place], [place] [phone] PCP - General Internal Medicine 03/29/21 11/07/21 Karin Clemente MD [address] [place] [address] PCP - General Internal Medicine 11/08/21 Amy Block DNP [address] [place] [address] 79368 Specialist Nurse Practitioner Family 10/11/23 Carlee Marcelo MD [address] [place] [address] 83187 Specialist Cardiology 10/11/23 documented as of this encounter
--- OUTSIDE RECORDS SUMMARY | 2024-11-30 20:37 | XMS_ITS | Encounter Summary ---
Author Organization [facility] Address [address] [place] [address] Care Team Providers Care Commercial Roofing Estimator Name Role Phone Rae Boss DO Primary Care Pro vider Unavailable Chuck Cervantes MD Primary Care Provider Unavailab Erika Herrera MD Primary Care Provider [phone] Hollie Nicholas MD Primary Care Provider Karin Vyas MD Primary Care Provider [phone] Amy Block DNP Unavailable [phone] Carlee Marcelo MD Unavailable [phone] Encounter Details Date Type Department Care Team Description 06/11/2019 Receiving Team Member Report Medical Records [address] [place] [address] Abstract, Provider Social History Tobacco Use Types [...] on filedocumented in this encounter Care Teams Commercial Roofing Estimator Relationship Specialty Start Date End Date Rae Boss DO PCP - General Internal Medicine 11/20/14 08/19/20 Chuck Cervantes MD PCP - General Internal Medicine 08/20/20 11/22/20 Erika Burciaga MD [address] [place] [address] PCP - General Internal Medicine 11/23/20 03/28/21 Hollie Nicholas MD [address] [place], [place] [phone] PCP - General Internal Medicine 03/29/21 11/07/21 Karin Clemente MD [address] [place] [address] PCP - General Internal Medicine 11/08/21 Amy Block DNP [address] [place] [address]244 Specialist Nurse Practitioner Family 10/11/23 Carlee Marcelo MD [address] [place] [address] 94459 Specialist Cardiology 10/11/23 documented as of this encounter
--- OUTSIDE RECORDS SUMMARY | 2024-11-30 20:37 | XMS_ITS | Encounter Summary ---
Author Organization [facility] Address [address] [place] [address] Care Team Providers Care Tnt Line Supervisor Name Role Phone Rae Boss DO Primary Care Pro vider Unavailable Chuck Cervantes MD Primary Care Provider Unavailab Erika Herrera MD Primary Care Provider [phone] Hollie Nicholas MD Primary Care Provider Karin Vyas MD Primary Care Provider [phone] Amy Block DNP Unavailable [phone] Carlee Marcelo MD Unavailable [phone] Reason for Visit * Reason Onset Date Comments er follow up 03/20/2019 Encounter Details Date Type Department Care Team Description 03/20/2019 Telephone Adult Medicine [address] [phone] Karen Vazquez PA-C er follow up Social [...] PA-C Hospital/UC center patient was treated at: [facility] Date of visit: 03/18/19 Was this [...] on filedocumented in this encounter Care Teams Tnt Line Supervisor Relationship Specialty Start Date End Date Rae Boss DO PCP - General Internal Medicine 11/20/14 08/19/20 Chuck Cervantes MD PCP - General Internal Medicine 08/20/20 11/22/20 Erika Burciaga MD [address] [place] [address] PCP - General Internal Medicine 11/23/20 03/28/21 Hollie Nicholas MD [address] [place], [place] [phone] PCP - General Internal Medicine 03/29/21 11/07/21 Karin Clemente MD [address] [place] [address] PCP - General Internal Medicine 11/08/21 Amy Block DNP [address] [place] [address] Specialist Nurse Practitioner Family 10/11/23 Carlee Marcelo MD [address] [place] [address] Specialist Cardiology 10/11/23 documented as of this encounter
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
--- OUTSIDE RECORDS SUMMARY | 2024-11-30 20:37 | XMS_ITS | Encounter Summary ---
Author Organization [facility] Address [address] [place] [address] Care Team Providers Care Retail Sales Clerk Name Role Phone Erika Burciaga MD Primary Care Provider [phone] Hollie Nicholas MD Primary Care Provider Karin Vyas MD Primary Care Provider [phone] Amy Block DNP Unavailable [phone] Carlee Marcelo MD Unavailable [phone] Reason for Visit * Reason Onset Date Comments Letter 12/21/2020 Encounter Details Date Type Department Care Team Description 12/21/2020 Telephone Pulmonology - [place] 175 [facility] [address] [place] [address] Shelly Ruiz APRN 175 [facility] 200 [place] [address] Letter Social History Tobacco Use [...] on filedocumented in this encounter Care Teams Retail Sales Clerk Relationship Specialty Start Date End Date Erika Burciaga MD [address] [place] [address] PCP - General Internal Medicine 11/23/20 03/28/21 Hollie Nicholas MD [address] [place] [address] PCP - General Internal Medicine 03/29/21 11/07/21 Karin Clemente MD [address] [place] [address] PCP - General Internal Medicine 11/08/21 Amy Block DNP [address] [place], [place] [phone] Specialist Nurse Practitioner Family 10/11/23 Carlee Marcelo MD [address] [place], [place] [phone] Specialist Cardiology 10/11/23 documented as of this encounter
--- OUTSIDE RECORDS SUMMARY | 2024-11-30 20:37 | XMS_ITS | Encounter Summary ---
Author Organization [facility] Address [address] [place] [address] Care Team Providers Care Transcriber Name Role Phone Rae Boss DO Primary Care Pro vider Unavailable Chuck Cervantes MD Primary Care Provider Unavailab Erika Herrera MD Primary Care Provider [phone] Hollie Nicholas MD Primary Care Provider Karin Vyas MD Primary Care Provider [phone] Amy Block DNP Unavailable [phone] Carlee Marcelo MD Unavailable [phone] Encounter Details Date Type Department Care Team Description 07/28/2017 Orders Only Medical Records [address] [place] [address] Karen Vazquez PA-C Social History Tobacco Use Types Packs/Day [...] Name Priority Date/Time Associated Diagnosis Comments OUTSIDE HOLTER MONITOR Routine 07/23/2017 documented in this encounter Results * OUTSIDE HOLTER MONITOR (07/23/2017) Karen Vazquez PA-C CARDIOLOGY documented in this encounter Visit Diagnoses Not on filedocumented in this encounter Care Teams Transcriber Relationship Specialty Start Date End Date Rae Boss DO PCP - General Internal Medicine 11/20/14 08/19/20 Chuck Cervantes MD PCP - General Internal Medicine 08/20/20 11/22/20 Erika Burciaga MD [address] [place] [address] PCP - General Internal Medicine 11/23/20 03/28/21 Hollie Nicholas MD [address] [place] [address] PCP - General Internal Medicine 03/29/21 11/07/21 Karin Clemente MD [address] [place] [address] PCP - General Internal Medicine 11/08/21 Amy Block DNP [address] [place], [place] [phone] Specialist Nurse Practitioner Family 10/11/23 Carlee Marcelo MD [address] [place] [address] Specialist Cardiology 10/11/23 documented as of this encounter
--- OUTSIDE RECORDS SUMMARY | 2024-11-30 20:37 | XMS_ITS | Encounter Summary ---
Author Organization [facility] Address [address] [place] [address] Care Team Providers Care Platform Loader Name Role Phone Rae Boss DO Primary Care Pro vider Unavailable Chuck Cervantes MD Primary Care Provider Unavailab Erika Herrera MD Primary Care Provider [phone] Hollie Nicholas MD Primary Care Provider Karin Vyas MD Primary Care Provider [phone] Amy Block DNP Unavailable [phone] Carlee Marcelo MD Unavailable [phone] Encounter Details Date Type Department Care Team Description 05/07/2019 Release of Information Medical Records [address] [place] [address] Abstract, Provider Social History Tobacco Use Types [...] on filedocumented in this encounter Care Teams Platform Loader Relationship Specialty Start Date End Date Rae Boss DO PCP - General Internal Medicine 11/20/14 08/19/20 Chuck Cervantes MD PCP - General Internal Medicine 08/20/20 11/22/20 Erika Burciaga MD [address] [place] [address] PCP - General Internal Medicine 11/23/20 03/28/21 Hollie Nicholas MD [address] [place] [address] PCP - General Internal Medicine 03/29/21 11/07/21 Karin Clemente MD [address] [place], [place] 7895920 PCP - General Internal Medicine 11/08/21 Amy Block DNP [address] [place] [address] Specialist Nurse Practitioner Family 10/11/23 Carlee Marcelo MD [address] [place] [address]109 Specialist Cardiology 10/11/23 documented as of this encounter
--- OUTSIDE RECORDS SUMMARY | 2024-11-30 20:37 | XMS_ITS | Encounter Summary ---
Author Organization [facility] Address [address] [place] [address] Care Team Providers Care Medical Billing Service Name Role Phone Chuck Cervantes MD Primary Care Provider Unavailab Erika Herrera MD Primary Care Provider [phone] Hollie Nicholas MD Primary Care Provider Karin Vyas MD Primary Care Provider [phone] Amy Block DNP Unavailable [phone] Carlee Marcelo MD Unavailable [phone] Reason for Visit * Reason Onset Date Comments TEST RESULTS 11/20/2020 Encounter Details Date Type Department Care Team Description 11/20/2020 Telephone Adult [address] [phone] Judy Watson PA-C [address] [place] [address] [phone] TEST RESULTS Social History Tobacco Use Types [...] on filedocumented in this encounter Care Teams Medical Billing Service Relationship Specialty Start Date End Date Chuck Cervantes MD PCP - General Internal Medicine 08/20/20 11/22/20 Erika Burciaga MD [address] [place] [address] PCP - General Internal Medicine 11/23/20 03/28/21 Hollie Nicholas MD [address] [place], [place] [phone] PCP - General Internal Medicine 03/29/21 11/07/21 Karin Clemente MD [address] [place] [address] PCP - General Internal Medicine 11/08/21 Amy Block DNP [address] [place] [address] 28614 Specialist Nurse Practitioner Family 10/11/23 Carlee Marcelo MD [address] [place] [address] 24781 Specialist Cardiology 10/11/23 documented as of this encounter
--- OUTSIDE RECORDS SUMMARY | 2024-11-30 20:37 | XMS_ITS | Encounter Summary ---
Author Organization [facility] Address [address] [place] [address] Care Team Providers Care Endoscope Technician Name Role Phone Rae Boss DO Primary Care Pro vider Unavailable Chuck Cervantes MD Primary Care Provider Unavailab Erika Herrera MD Primary Care Provider [phone] Hollie Nicholas MD Primary Care Provider UnaKarin Nation MD Primary Care Provider [phone] Amy Block DNP Unavailable [phone] Carlee Marcelo MD Unavailable [phone] Reason for Referral * Non JASVIR (Routine) - Closed Specialty Diagnoses / Procedures Referred By Janae lynch Referred To Contact General Surgery Procedures REFERRAL TO GENERAL SURGERY (IN NETWORK) Rae Boss DO [address] [place] [address] Gen Surg/[place] [address] [address] Referral ID Status Reason Start Date Expiration Date Visits Re quested Visits Authorized [id number] Closed 01/31/2019 01/31/2020 1 1 Encounter Details Date Type Department Care Team Description 01/31/2019 Orders Only Adult Medicine [facility] [address] [place] [address] [phone] Rae Boss DO Social History Tobacco Use [...] on filedocumented in this encounter Care Teams Endoscope Technician Relationship Specialty Start Date End Date Rae Boss DO PCP - General Internal Medicine 11/20/14 08/19/20 Chuck Cervantes MD PCP - General Internal Medicine 08/20/20 11/22/20 Erika Burciaga MD [address] [place] [address] PCP - General Internal Medicine 11/23/20 03/28/21 Hollie Nicholas MD [address] [place] [address] PCP - General Internal Medicine 03/29/21 11/07/21 Karin Clemente MD [address] [place] [address] PCP - General Internal Medicine 11/08/21 Amy Block DNP [address] [place] [address]321 Specialist Nurse Practitioner Family 10/11/23 Carlee Marcelo MD [address] [place] [address] Specialist Cardiology 10/11/23 documented as of this encounter
--- OUTSIDE RECORDS SUMMARY | 2024-11-30 20:37 | XMS_ITS | Encounter Summary ---
Author Organization [facility] Address [address] [place] [address] Care Team Providers Care Resource Management Specialist Name Role Phone Karin Clemente MD Primary Care Provider [phone] Amy Block DNP Unavailable [phone] Carlee Marcelo MD Unavailable [phone] Encounter Details Date Type Department Care Team Description 12/29/2023 Telephone [facility] Medical [facility] [address] [address] Jonatan Marie DPM [address] [address] Social History Tobacco Use Types Packs/Day Years [...] encounter Miscellaneous Notes * Telephone Encounter - Latasha Coombs - 12/29/2023 10:42 AM EDT Good morning Dr. Marie, Patient called the office this morning stating that she has an upcoming appointment with you on 01/23/2024 to review an MRI. The patient stated that she has not yet been able to schedule the MRI due to scheduling conflicts. The patient stated additionally that she has a fear of MRI machines and was wondering if she could have a CT Scan instead. -Latasha documented in this encounter Plan of Treatment Not on file documented as of this encounter Visit Diagnoses Not on filedocumented in this encounter Care Teams Resource Management Specialist Relationship Specialty Start Date End Date Karin Clemente MD [address] [place] [address] PCP - General Internal Medicine 11/08/21 Amy Block DNP [address] [place] [address] Specialist Nurse Practitioner Family 10/11/23 Carlee Marcelo MD [address] [place] [address] Specialist Cardiology 10/11/23 documented as of this encounter
--- OUTSIDE RECORDS SUMMARY | 2024-11-30 20:37 | XMS_ITS | Encounter Summary ---
Author Organization [facility] Address [address] [place] [address] Care Team Providers Care Certified Welding Inspector Name Role Phone Rae Boss DO Primary Care Pro vider Unavailable Chuck Cervantes MD Primary Care Provider Unavailab Erika Herrera MD Primary Care Provider [phone] Hollie Nicholas MD Primary Care Provider Karin Vyas MD Primary Care Provider [phone] Aym Block DNP Unavailable [phone] Carlee Marcelo MD Unavailable [phone] Encounter Details Date Type Department Care Team Description 05/28/2019 Inside Contractor Sales Report Medical Records [address] [place] [address] [facility], [address] [address] Social History Tobacco Use Types [...] on filedocumented in this encounter Care Teams Certified Welding Inspector Relationship Specialty Start Date End Date Rae Boss DO PCP - General Internal Medicine 11/20/14 08/19/20 Chuck Cervantes MD PCP - General Internal Medicine 08/20/20 11/22/20 Erika Burciaga MD [address] [place] [address] PCP - General Internal Medicine 11/23/20 03/28/21 Hollie Nicholas MD [address] [place], [place] [id number] PCP - General Internal Medicine 03/29/21 11/07/21 Karin Clemente MD [address] [place] [address] PCP - General Internal Medicine 11/08/21 Amy Block DNP [address] [place] [address] Specialist Nurse Practitioner Family 10/11/23 Carlee Marcelo MD [address] [place] [address] Specialist Cardiology 10/11/23 documented as of this encounter
--- OUTSIDE RECORDS SUMMARY | 2024-11-30 20:37 | XMS_ITS | Encounter Summary ---
Author Organization [facility] Address [address] [place] [address] Care Team Providers Care Nurse Quality Name Role Phone Rae Boss DO Primary Care Pro vider Unavailable Chuck Cervantes MD Primary Care Provider Unavailab Erika Herrera MD Primary Care Provider [phone] Hollie Nicholas MD Primary Care Provider Karin Vyas MD Primary Care Provider [phone] Amy Block DNP Unavailable [phone] Carlee Marcelo MD Unavailable [phone] Encounter Details Date Type Department Care Team Description 12/15/2014 Release of Information Medical Records [address] [place] [address] Abstract, Provider Social History Tobacco Use Types [...] on filedocumented in this encounter Care Teams Nurse Quality Relationship Specialty Start Date End Date Rae Boss DO PCP - General Internal Medicine 11/20/14 08/19/20 Chuck Cervantes MD PCP - General Internal Medicine 08/20/20 11/22/20 Erika Burciaga MD [address] [place] [address] PCP - General Internal Medicine 11/23/20 03/28/21 Hollie Nicholas MD [address] [place] [address] PCP - General Internal Medicine 03/29/21 11/07/21 Karin Clemente MD [address] [place], [place] [address] PCP - General Internal Medicine 11/08/21 Amy Block DNP [address] [place] [address] Specialist Nurse Practitioner Family 10/11/23 Carlee Marcelo MD [address] [place] [address] Specialist Cardiology 10/11/23 documented as of this encounter
--- OUTSIDE RECORDS SUMMARY | 2024-11-30 20:37 | XMS_ITS | Encounter Summary ---
Author Organization [facility] Address [address] [place] [address] Care Team Providers Care Early Childhood Education Specialist Name Role Phone Karin Clemente MD Primary Care Provider [phone] Amy Block DNP Unavailable [phone] Carlee Marcelo MD Unavailable [phone] Reason for Visit * Reason Onset Date Comments Advice 07/12/2022 Encounter Details Date Type Department Care Team Description 07/12/2022 Telephone Bariatric Surgery - [place] 175 [facility] [address] [place] [address] Daisy Dan MD 175 [facility] Johnathan [address] [place] [address] Advice Social History Tobacco Use [...] Dr Dan she can be reached at [phone]. The appt was to decide if the patient needed to have the gallbladder removed. documented in this encounter Plan of Treatment Not on file documented as of this encounter Visit Diagnoses Not on filedocumented in this encounter Care Teams Early Childhood Education Specialist Relationship Specialty Start Date End Date Karin Clemente MD [address] [place] [address] PCP - General Internal Medicine 11/08/21 Amy Block DNP [address] [place] [address] Specialist Nurse Practitioner Family 10/11/23 Carlee Marcelo MD [address] [place] [address] Specialist Cardiology 10/11/23 documented as of this encounter
--- OUTSIDE RECORDS SUMMARY | 2024-11-30 20:37 | XMS_ITS | Encounter Summary ---
Author Organization [facility] Address [address] [place] [address] Care Team Providers Care Boring Machine Operator Production Name Role Phone Rae Boss DO Primary Care Pro vider Unavailable Chuck Cervantes MD Primary Care Provider Unavailab Erika Herrera MD Primary Care Provider [phone] Hollie Nicholas MD Primary Care Provider Karin Vyas MD Primary Care Provider [phone] Amy Block DNP Unavailable [phone] Carlee Marcelo MD Unavailable [phone] Encounter Details Date Type Department Care Team Description 05/15/2017 Pipeline Dispatcher Report Medical Records [address] [place] [address] Abstract, Provider Social History Tobacco Use Types [...] on filedocumented in this encounter Care Teams Boring Machine Operator Production Relationship Specialty Start Date End Date Rae Boss DO PCP - General Internal Medicine 11/20/14 08/19/20 Chuck Cervantes MD PCP - General Internal Medicine 08/20/20 11/22/20 Erika Burciaga MD [address] [place] [address] PCP - General Internal Medicine 11/23/20 03/28/21 Hollie Nicholas MD [address] [place], [place] [phone] PCP - General Internal Medicine 03/29/21 11/07/21 Karin Clemente MD [address] [place] [address] PCP - General Internal Medicine 11/08/21 Amy Block DNP [address] [place] [address] Specialist Nurse Practitioner Family 10/11/23 Carlee Marcelo MD [address] [place] [address] Specialist Cardiology 10/11/23 documented as of this encounter
--- OUTSIDE RECORDS SUMMARY | 2024-11-30 20:37 | XMS_ITS | Encounter Summary ---
Author Organization [facility] Address [address] [place] [address] Care Team Providers Care Leather Tanner Name Role Phone Rae Boss DO Primary Care Pro vider Unavailable Chuck Cervantes MD Primary Care Provider Unavailab Erika Herrera MD Primary Care Provider [phone] Hollie Nicholas MD Primary Care Provider Karin Vyas MD Primary Care Provider [phone] Amy Block DNP Unavailable [phone] Carlee Marcelo MD Unavailable [phone] Encounter Details Date Type Department Care Team Description 01/08/2019 Release of Information Medical Records [address] [place] [address] Abstract, Provider Social History Tobacco Use Types [...] on filedocumented in this encounter Care Teams Leather Tanner Relationship Specialty Start Date End Date Rae Boss DO PCP - General Internal Medicine 11/20/14 08/19/20 Chuck Cervantes MD PCP - General Internal Medicine 08/20/20 11/22/20 Erika Burciaga MD [address] [place] [address] PCP - General Internal Medicine 11/23/20 03/28/21 Hollie Nicholas MD [address] [place] [address] PCP - General Internal Medicine 03/29/21 11/07/21 Karin Clemente MD [address] [place], [place] [phone] PCP - General Internal Medicine 11/08/21 Amy Block DNP [address] [place] [address] Specialist Nurse Practitioner Family 10/11/23 Carlee Marcelo MD [address] [place] [address] Specialist Cardiology 10/11/23 documented as of this encounter
--- OUTSIDE RECORDS SUMMARY | 2024-11-30 20:37 | XMS_ITS | Encounter Summary ---
Author Organization [facility] Address [address] [place] [address] Care Team Providers Care Keyboard Specialist Name Role Phone Judy Bearden MD Primary Care Provider UnaRae De La Rosa DO Primary Care Pro vider Unavailable Chuck Cervantes MD Primary Care Provider Unavailab Erika Herrera MD Primary Care Provider [phone] Hollie Nicholas MD Primary Care Provider Unavai Karin Maldonado MD Primary Care Provider [phone] Amy Block DNP Unavailable [phone] Carlee Marcelo MD Unavailable [phone] Encounter Details Date Type Department Care Team Description 08/11/2014 Assembly Line Leader Report Medical Records [address] [place] [address] Kaesy Frank PA-C Social History Tobacco Use Types Packs/Day [...] on filedocumented in this encounter Care Teams Keyboard Specialist Relationship Specialty Start Date End Date Judy Bearden MD PCP - General Internal Medicine 06/02/14 11/19/14 Rae Boss DO PCP - General Internal Medicine 11/20/14 08/19/20 Chuck Cervantes MD PCP - General Internal Medicine 08/20/20 11/22/20 Erika Burciaga MD [address] [place] [address] PCP - General Internal Medicine 11/23/20 03/28/21 Hollie Nicholas MD [address] [place] [address] PCP - General Internal Medicine 03/29/21 11/07/21 Karin Clemente MD [address] [place] [address] PCP - General Internal Medicine 11/08/21 Amy Block DNP [address] [place] [address] Specialist Nurse Practitioner Family 10/11/23 Carlee Marcelo MD [address] [place] [address] Specialist Cardiology 10/11/23 documented as of this encounter
--- OUTSIDE RECORDS SUMMARY | 2024-11-30 20:37 | XMS_ITS | Encounter Summary ---
Author Organization [facility] Address [address] [place] [address] Care Team Providers Care Diesel Engine Operator Name Role Phone Rae Boss DO Primary Care Pro vider Unavailable Chuck Cervantes MD Primary Care Provider Unavailab Erika Herrera MD Primary Care Provider [phone] Hollie Nicholas MD Primary Care Provider Karin Vyas MD Primary Care Provider [phone] Amy Block DNP Unavailable Carlee Marcelo MD Unavailable [phone] Encounter Details Date Type Department Care Team Description 04/10/2019 Night Triage Doc Medical Records [address] [place] [address] Abstract, Provider Social History Tobacco Use Types [...] on filedocumented in this encounter Care Teams Diesel Engine Operator Relationship Specialty Start Date End Date Rae Boss DO PCP - General Internal Medicine 11/20/14 08/19/20 Chuck Cervantes MD PCP - General Internal Medicine 08/20/20 11/22/20 Erika Burciaga MD [address] [place] [address] PCP - General Internal Medicine 11/23/20 03/28/21 Hollie Nicholas MD [address] [place] [address] PCP - General Internal Medicine 03/29/21 11/07/21 Karin Clemente MD [address] [place], [place] [address] PCP - General Internal Medicine 11/08/21 Amy Block DNP [address] [place] [address] Specialist Nurse Practitioner Family 10/11/23 Carlee Marcelo MD [address] [place] [address] Specialist Cardiology 10/11/23 documented as of this encounter
--- OUTSIDE RECORDS SUMMARY | 2024-11-30 20:37 | XMS_ITS | Encounter Summary ---
Author Organization [facility] Address [address] [place] [address] Care Team Providers Care Animal Services Officer Name Role Phone Karin Clemente MD Primary Care Provider [phone] Amy Block DNP Unavailable [phone] Carlee Marcelo MD Unavailable [phone] Reason for Visit * Reason Onset Date Comments refill request 01/26/2024 Encounter Details Date Type Department Care Team Description 01/26/2024 Refill Pulmonology - [place] 175 [facility] [address] [place] [address] Shelly Ruiz APRN 175 [facility] [address] [place] [address] refill request Social History Tobacco Use Types [...] * Telephone Encounter - Karly Olvera - 01/26/2024 1:31 PM EDT Patient calling to request refill Nov 06/11/24 Sandra 12/12/23 documented in this encounter Plan of Treatment Not on file documented as of this encounter Visit Diagnoses Diagnosis Severe asthma without complication, unspecified whether persistent Acute cough Allergic rhinitis, unspecified seasonality, unspecified trigger documented in this encounter Care Teams Animal Services Officer Relationship Specialty Start Date End Date Karin Clemente MD [address] [place] [address] PCP - General Internal Medicine 11/08/21 Amy Block DNP [address] [place] [address] Specialist Nurse Practitioner Family 10/11/23 Carlee aMrcelo MD [address] [place] [address] Specialist Cardiology 10/11/23 documented as of this encounter
--- OUTSIDE RECORDS SUMMARY | 2024-11-30 20:38 | XMS_ITS | Encounter Summary ---
Author Organization [facility] Address [address] [place] [address] Care Team Providers Care Art Coordinator Name Role Phone Karin Clemente MD Primary Care Provider [phone] Amy Block DNP Unavailable [phone] Carlee Marcelo MD Unavailable [phone] Encounter Details Date Type Department Care Team Description 11/21/2022 Refill Pulmonology - [place] 175 [facility] 200 [place] [address] Shelly Ruiz APRN 175 [facility] 200 [place] [id number] Social History Tobacco Use Types Packs/Day Years [...] Encounter - Shelly Ruiz APRN - 11/22/2022 11:49 AM EDT This medication was given due to reaction to Dupixent. No refills needed. * Telephone Encounter - Quang Cosme CMA - 11/22/2022 11:41 AM EDT ANGELI 11/01/22 NOV 02/07/23 documented in this encounter Plan of Treatment Not on file documented as of this encounter Visit Diagnoses Diagnosis H/O multiple allergies documented in this encounter Care Teams Art Coordinator Relationship Specialty Start Date End Date Karin Clemente MD [address] [place] [address] PCP - General Internal Medicine 11/08/21 Amy Block DNP [address] [place] [address] Specialist Nurse Practitioner Family 10/11/23 Carlee Marcelo MD [address] [place] [address] Specialist Cardiology 10/11/23 documented as of this encounter
--- OUTSIDE RECORDS SUMMARY | 2024-11-30 20:38 | XMS_ITS | Encounter Summary ---
Author Organization [facility] Address [address] [place] [address] Care Team Providers Care Floor Coverer Name Role Phone Rae Boss DO Primary Care Pro vider Unavailable Chuck Cervantes MD Primary Care Provider Unavailab Erika Herrera MD Primary Care Provider [phone] Hollie Nicholas MD Primary Care Provider Karin Vyas MD Primary Care Provider [phone] Amy Block DNP Unavailable [phone] Carlee Marcelo MD Unavailable [phone] Encounter Details Date Type Department Care Team Description 01/27/2016 Release of Information Medical Records [address] [place] [address] Abstract, Provider Social History Tobacco Use Types [...] filedocumented in this encounter Care Teams Floor Coverer Relationship Specialty Start Date End Date Rae Boss DO PCP - General Internal Medicine 11/20/14 08/19/20 Chuck Cervantes MD PCP - General Internal Medicine 08/20/20 11/22/20 Erika Burciaga MD [address] [place] [address] PCP - General Internal Medicine 11/23/20 03/28/21 Hollie Nicholas MD [address] [place] [address] PCP - General Internal Medicine 03/29/21 11/07/21 Karin Clemente MD [address] [place], [place] [address] PCP - General Internal Medicine 11/08/21 Amy Block DNP [address] [place] [address] Specialist Nurse Practitioner Family 10/11/23 Carlee Marcelo MD [address] [place] [address] Specialist Cardiology 10/11/23 documented as of this encounter
--- OUTSIDE RECORDS SUMMARY | 2024-11-30 20:38 | XMS_ITS | Encounter Summary ---
Author Organization [facility] Address [address] [place] [address] Care Team Providers Care Grapple Crew Leader Name Role Phone Rae Boss DO Primary Care Pro vider Unavailable Chuck Cervantes MD Primary Care Provider Unavailab Erika Herrera MD Primary Care Provider [phone] Hollie Nihcolas MD Primary Care Provider Karin Vyas MD Primary Care Provider [phone] Amy Block DNP Unavailable [phone] Carlee Marcelo MD Unavailable [phone] Encounter Details Date Type Department Care Team Description 10/11/2019 Night Triage Doc Medical Records [address] [place] [address] Abstract, Provider Social History Tobacco Use Types [...] on filedocumented in this encounter Care Teams Grapple Crew Leader Relationship Specialty Start Date End Date Rae Boss DO PCP - General Internal Medicine 11/20/14 08/19/20 Chuck Cervantes MD PCP - General Internal Medicine 08/20/20 11/22/20 Erika Burciaga MD [address] [place] [address] PCP - General Internal Medicine 11/23/20 03/28/21 Hollie Nicholas MD [address] [place] [address] PCP - General Internal Medicine 03/29/21 11/07/21 Karin Clemente MD [address] [place], [place] [address] PCP - General Internal Medicine 11/08/21 Amy Block DNP [address] [place] [address] Specialist Nurse Practitioner Family 10/11/23 Carlee Marcelo MD [address] [place] [address] Specialist Cardiology 10/11/23 documented as of this encounter
--- OUTSIDE RECORDS SUMMARY | 2024-11-30 20:38 | XMS_ITS | Encounter Summary ---
Author Organization [facility] Address [address] [place] [address] Care Team Providers Care Quality Consultant Name Role Phone Rae Boss DO Primary Care Pro vider Unavailable Chuck Cervantes MD Primary Care Provider Unavailab Erika Herrera MD Primary Care Provider [phone] Hollie Nicholas MD Primary Care Provider Karin Vyas MD Primary Care Provider [phone] Amy Block DNP Unavailable [phone] Carlee Marcelo MD Unavailable [phone] Reason for Visit * Reason Onset Date Comments Prior Authorization 02/10/2020 hydrocortiso ne hetal 0.2% cream 45gm Encounter Details Date Type Department Care Team Description 02/10/2020 Telephone Dermatology - [address] [address] Sophia Ferrera PA-C Prior Authorization (hydrocortisone hetal 0.2% cream 45gm) Social History Tobacco Use Types Packs/Day Years [...] Miscellaneous Notes * Telephone Encounter - Judy Hopkins M.A. - 02/12/2020 11:23 AM EST Confirmed with pharmacy the strength of hydrocortisone valerate is 0.2% * Telephone Encounter - Judy Hopkins M.A. - 02/11/2020 5:04 PM EST Patient informed and is unsure of the strength of hydrocortisone. I will contact the pharmacy to confirm the strength * Telephone Encounter - Judy Hopknis M.A. - 02/11/2020 9:49 AM EST Patient was informed and is worried the new cream will cause her to break out as she states her skin is very sensitive. I informed her aclovate cream is safe to use on the face. She would like to know if a generic of hydrocortisone would be covered * Telephone Encounter - Sophia Ferrera - 02/10/2020 4:37 PM EST Patient having difficulty filling her hydrocortisone valerate 0.2%. According to my preauthorization staff, we may need to change this at a prescription for Aclovate cream 0.05% was sent instead. * Telephone Encounter - Terri Villagran M.A. - 02/10/2020 4:17 PM EST The pharmacy only has an ndc that [facility] does not work with Called [facility] and they were no help Pt may have to use a coupon or purchase otc Clobetasol may be an option if you want to try a script for that [place] [phone] Prior Quoc Villagran M.A. Regional Prior Authorizations Ext [phone] Fax: [phone] [place] [phone] Prior Quoc trujillo * Telephone Encounter - Deepa Woodall - 02/10/2020 1:45 PM EST Prior Authorization for Medication-do not complete and send this encounter unless you have the fax from the pharmacy. Is this a Cover My Meds request: [place] of Medication Hydrocortisone hetal 0.2% cream 45gm Dose of Medication What is the RX # from the faxed refill? [id number] How does patient take this med? Apply externally to the affected area twice daily for 3 to 5 days What Pharmacy did the fax come from: [facility] fax #: [phone] [employer] Information from fax: What Prescription Plan does the patient have? BIN/PCN if applicable: Cardholder ID: Person Code: Relationship Code: Help desk phone: documented in this encounter Plan of Treatment Not on file documented as of this encounter Visit Diagnoses Not on filedocumented in this encounter Care Teams Quality Consultant Relationship Specialty Start Date End Date Rae Boss DO PCP - General Internal Medicine 11/20/14 08/19/20 Chuck Cervantes MD PCP - General Internal Medicine 08/20/20 11/22/20 Erika Burciaga MD [address] [place] [address] PCP - General Internal Medicine 11/23/20 03/28/21 Hollie Nicholas MD [address] [place] [address] PCP - General Internal Medicine 03/29/21 11/07/21 Karin Clemente MD [address] [place] [address] PCP - General Internal Medicine 11/08/21 Amy Block DNP [address] [place] [address] Specialist Nurse Practitioner Family 10/11/23 Carlee Marcelo MD [address] [place] [address] Specialist Cardiology 10/11/23 documented as of this encounter
--- OUTSIDE RECORDS SUMMARY | 2024-11-30 20:38 | XMS_ITS | Encounter Summary ---
Author Organization [facility] Address [address] [place] [address] Care Team Providers Care Casket Coverer Name Role Phone Karin Clemente MD Primary Care Provider [phone] Amy Block DNP Unavailable [phone] Carlee Marcelo MD Unavailable [phone] Reason for Referral * EXTERNAL (Routine) - Authorized/Booked Specialty Diagnoses / Procedures Referred By Contact Referred To Contact Allergy & Immunology / Allergy Procedures REFERRAL TO ALLERGY Karin Clemente MD [address] [place] [address] [facility] [address] [place] [address] Referral ID Status Reason Start Date Expiration Date V isits Requested Visits Authorized [id number] Authorized/B ooked 01/19/2023 01/19/2024 1 1 Reason for Visit * Reason Onset Date Comments REFERRAL 01/19/2023 Encounter Details Date Type Department Care Team Description 01/19/2023 Telephone Adult Medicine [facility] [address] [place] [address] [phone] Karin Clemente MD [address] [place] [address] [phone] REFERRAL Social History Tobacco Use Types Packs/Day [...] wait times for appts with a local drug abuse technician. She cannot go into to [place] for an appt and will wait for an appt locally. Dr. Clemente, please place new referral. * Telephone Encounter - Brennen Angelo - 01/19/2023 9:35 AM EDT Patient does not want to be referred to [facility] because shesays it is to far out of the way . documented in this encounter Plan of Treatment Not on file documented as of this encounter Visit Diagnoses Not on filedocumented in this encounter Care Teams Casket Coverer Relationship Specialty Start Date End Date Karin Clemente MD [address] [place] [address] PCP - General Internal Medicine 11/08/21 Amy Block DNP [address] [place] [address] 61459 Specialist Nurse Practitioner Family 10/11/23 Carlee Marcelo MD [address] [place] [address] 76567 Specialist Cardiology 10/11/23 documented as of this encounter
--- OUTSIDE RECORDS SUMMARY | 2024-11-30 20:38 | XMS_ITS | Encounter Summary ---
Author Organization [facility] Address [address] [place] [address] Care Team Providers Care Manager Functional Name Role Phone Karin Clemente MD Primary Care Provider [phone] Amy Block DNP Unavailable [phone] Carlee Marcelo MD Unavailable [phone] Encounter Details Date Type Department Care Team Description 11/30/2021 Stump Blower Report Medical Records [address] [place] [address] [id number] Social History Tobacco Use Types Packs/Day Years [...] filedocumented in this encounter Care Teams Manager Functional Relationship Specialty Start Date End Date Karin Clemente MD [address] [place] [address] [phone] PCP - General Internal Medicine 11/08/21 Amy Block DNP [address] [place] [address] [phone] Specialist Nurse Practitioner Family 10/11/23 Carlee Marcelo MD [address] [place] [address]20 Specialist Cardiology 10/11/23 documented as of this encounter
--- OUTSIDE RECORDS SUMMARY | 2024-11-30 20:38 | XMS_ITS | Encounter Summary ---
Author Organization [facility] Address [address] [place] [address] Care Team Providers Care Pediatrician/Medical Doctor Name Role Phone Hollie Nicholas MD Primary Care Provider Karin Vyas MD Primary Care Provider [phone] Amy Block DNP Unavailable Carlee Marcelo MD Unavailable [phone] Encounter Details Date Type Department Care Team Description 04/16/2021 Arcgis Developer Report Medical Records [address] [place] [address] [id number] Social History Tobacco Use Types Packs/Day Years [...] or suspected to have Coronavirus / COVID-19? Yes 03/29/2021 12:52 PM EST documented as of this encounter Plan of Treatment Not on file documented as of this encounter Visit Diagnoses Not on filedocumented in this encounter Care Teams Pediatrician/Medical Doctor Relationship Specialty Start Date End Date Hollie Nicholas MD PCP - General Internal Medicine 03/29/21 11/07/21 Karin Clemente MD [address] [place] [address] PCP - General Internal Medicine 11/08/21 Amy Block DNP [address] [place] [address] 00858 Specialist Nurse Practitioner Family 10/11/23 Carlee Marcelo MD [address] [place] [address]259 Specialist Cardiology 10/11/23 documented as of this encounter
--- OUTSIDE RECORDS SUMMARY | 2024-11-30 20:38 | XMS_ITS | Encounter Summary ---
Author Organization [facility] Address [address] [place] [address] Care Team Providers Care Performing Artist Name Role Phone Karin Clemente MD Primary Care Provider [phone] Amy Block DNP Unavailable Carlee Marcelo MD Unavailable [phone] Encounter Details Date Type Department Care Team Description 11/15/2022 Commercial Loan Reviewer Report Medical Records [address] [place] [address] Morena Allison E, CHIEF NUCLEAR MEDICINE TECHNOLOGIST Social History Tobacco Use Types Packs/Day Years [...] on filedocumented in this encounter Care Teams Performing Artist Relationship Specialty Start Date End Date Karin Clemente MD [address] [place] [address] [phone] PCP - General Internal Medicine 11/08/21 Amy Block DNP [address] [place] [address]63 Specialist Nurse Practitioner Family 10/11/23 Carlee Marcelo MD [address] [place] [address] 78696 Specialist Cardiology 10/11/23 documented as of this encounter
--- OUTSIDE RECORDS SUMMARY | 2024-11-30 20:38 | XMS_ITS | Encounter Summary ---
Author Organization [facility] Address [address] [place] [address] Care Team Providers Care Highway Maintenance Crew Worker Name Role Phone Erika Burciaga MD Primary Care Provider [phone] Hollie Nicholas MD Primary Care Provider Karin Vyas MD Primary Care Provider [phone] Amy Block DNP Unavailable Carlee Marcelo MD Unavailable [phone] Encounter Details Date Type Department Care Team Description 02/24/2021 Grape Crusher Report Medical Records [address] [place] [address] [address] Social History Tobacco Use Types [...] on filedocumented in this encounter Care Teams Highway Maintenance Crew Worker Relationship Specialty Start Date End Date Erika Burciaga MD [address] [place] [address] PCP - General Internal Medicine 11/23/20 03/28/21 Hollie Nicholas MD [address] [place] [address] PCP - General Internal Medicine 03/29/21 11/07/21 Karin Clemente MD [address] [place] [address] PCP - General Internal Medicine 11/08/21 Amy Block DNP [address] [place] [address] Specialist Nurse Practitioner Family 10/11/23 Carlee Marcelo MD [address] [place] [address] Specialist Cardiology 10/11/23 documented as of this encounter
--- OUTSIDE RECORDS SUMMARY | 2024-11-30 20:38 | XMS_ITS | Encounter Summary ---
Author Organization [facility] Address [address] [place] [address] Care Team Providers Care Apron Operator Name Role Phone Karin Clemente MD Primary Care Provider [phone] Amy Block DNP Unavailable [phone] Carlee Marcelo MD Unavailable [phone] Reason for Visit * Reason Onset Date Comments Medication 02/14/2023 Encounter Details Date Type Department Care Team Description 02/14/2023 Pt. Non Urgent Medical Question Adult Medicine [address] [address] Radha Rendon MD [address] [place] [address] [phone] Social History Tobacco Use Types Packs/Day Years [...] Telephone Encounter - Sachi Wright M.A. - 02/14/2023 1:27 PM ESTFrom: Krsytal Deforge To: Crista Rendon Sent: 02/14/2023 1:26 PM EST Subject: Medication I went to go machine operator picker my medication from the pharmacy and they said Dr Rendon wrote it for the same thing he has already gave me that I been taking that now is hurting my ears so if we can get this done that would be great thank you documented in this encounter Plan of Treatment Not on file documented as of this encounter Visit Diagnoses Not on filedocumented in this encounter Care Teams Apron Operator Relationship Specialty Start Date End Date Karin Clemente MD [address] [place] [address] PCP - General Internal Medicine 11/08/21 Amy Block DNP [address] [place] [address] 399[address] Specialist Nurse Practitioner Family 10/11/23 Carlee Marcelo MD [address] [place] [address] Specialist Cardiology 10/11/23 documented as of this encounter
--- OUTSIDE RECORDS SUMMARY | 2024-11-30 20:38 | XMS_ITS | Encounter Summary ---
Author Organization [facility] Address [address] [place] [address] Care Team Providers Care Checker And Packer Name Role Phone Rae Boss DO Primary Care Pro vider Unavailable Chuck Cervantes MD Primary Care Provider Unavailab Erika Herrera MD Primary Care Provider [phone] Hollie Nicholas MD Primary Care Provider Karin Vyas MD Primary Care Provider [phone] Amy Block DNP Unavailable [phone] Carlee Marcelo MD Unavailable [phone] Reason for Visit * Reason Comments E-prescribe Rx Request Encounter Details Date Type Department Care Team Description 08/13/2019 Refill Adult Medicine [address] [id number] Shelby Amor PA-C E-prescribe Rx Request Social [...] N/A Patients current insurance carrier is: Payor: [employer] FFS / Plan: [facility] / Product Type: MEDICAID RISK documented in this encounter Plan of Treatment Not on file documented as of this encounter Visit Diagnoses Not on filedocumented in this encounter Care Teams Checker And Packer Relationship Specialty Start Date End Date Rae Boss DO PCP - General Internal Medicine 11/20/14 08/19/20 Chuck Cervantes MD PCP - General Internal Medicine 08/20/20 11/22/20 Erika Burciaga MD [address] [place] [address] PCP - General Internal Medicine 11/23/20 03/28/21 Hollie Nicholas MD [address] [place] [address] PCP - General Internal Medicine 03/29/21 11/07/21 Karin Clemente MD [address] [place] [address] PCP - General Internal Medicine 11/08/21 Amy Block DNP [address] [place] [address] Specialist Nurse Practitioner [facility] 10/11/23 Carlee Marcelo MD [address] [place] [address] Specialist Cardiology 10/11/23 documented as of this encounter
--- OUTSIDE RECORDS SUMMARY | 2024-11-30 20:38 | XMS_ITS | Encounter Summary ---
Author Organization [facility] Address [address] [place] [address] Care Team Providers Care Laborer Filter Plant Name Role Phone Karin Clemente MD Primary Care Provider [phone] Amy Block DNP Unavailable [phone] Carlee Marcelo MD Unavailable [phone] Reason for Visit * Reason Onset Date Comments Faxed Order 11/16/2022 Encounter Details Date Type Department Care Team Description 11/16/2022 Telephone Adult Medicine [address] [phone] Karin Clemente MD [address] [place] [address] [phone] Faxed Order Social History Tobacco Use Types [...] on filedocumented in this encounter Care Teams Laborer Filter Plant Relationship Specialty Start Date End Date Karin Clemente MD [address] [place] [address] PCP - General Internal Medicine 11/08/21 Amy Block DNP [address] [place] [address] 09451 Specialist Nurse Practitioner Family 10/11/23 Carlee Marcelo MD [address] [place] [address]201 Specialist Cardiology 10/11/23 documented as of this encounter
--- OUTSIDE RECORDS SUMMARY | 2024-11-30 20:38 | XMS_ITS | Encounter Summary ---
Author Organization [facility] Address [address] [place] [address] Care Team Providers Care Party Plan Sales Agent Name Role Phone Rae Boss DO Primary Care Pro vider Unavailable Chuck Cervantes MD Primary Care Provider Unavailab Erika Herrera MD Primary Care Provider [phone] Hollie Nicholas MD Primary Care Provider Karin Vyas MD Primary Care Provider [phone] Amy Block DNP Unavailable Carlee Marcelo MD Unavailable [phone] Encounter Details Date Type Department Care Team Description 04/08/2018 Night Triage Doc Medical Records [address] [place] [address] Abstract, Provider Social History Tobacco Use Types [...] on filedocumented in this encounter Care Teams Party Plan Sales Agent Relationship Specialty Start Date End Date Rae Boss DO PCP - General Internal Medicine 11/20/14 08/19/20 Chuck Cervantes MD PCP - General Internal Medicine 08/20/20 11/22/20 Erika Burciaga MD [address] [place] [address] PCP - General Internal Medicine 11/23/20 03/28/21 Hollie Nicholas MD [address] [place] [address] PCP - General Internal Medicine 03/29/21 11/07/21 Karin Clemente MD [address] [place], [place] [phone] PCP - General Internal Medicine 11/08/21 Amy Block DNP [address] [place] [address]279 Specialist Nurse Practitioner Family 10/11/23 Carlee Marcelo MD [address] [place] [address] 61346 Specialist Cardiology 10/11/23 documented as of this encounter
--- OUTSIDE RECORDS SUMMARY | 2024-11-30 20:38 | XMS_ITS | Encounter Summary ---
Author Organization [facility] Address [address] [place] [address] Care Team Providers Care Shipping Clerk Packing Name Role Phone Rae Boss DO Primary Care Pro vider Unavailable Chuck Cervantes MD Primary Care Provider Unavailab Erika Herrera MD Primary Care Provider [phone] Hollie Nicholas MD Primary Care Provider Karin Vyas MD Primary Care Provider [phone] Amy Block DNP Unavailable [phone] Carlee Marcelo MD Unavailable [phone] Encounter Details Date Type Department Care Team Description 12/15/2015 Telephone Gastroenterology - [address] [phone] Annie Flores MD Social History Tobacco Use [...] on filedocumented in this encounter Care Teams Shipping Clerk Packing Relationship Specialty Start Date End Date Rae Boss DO PCP - General Internal Medicine 11/20/14 08/19/20 Chuck Cervantes MD PCP - General Internal Medicine 08/20/20 11/22/20 Erika Burciaga MD [address] [place] [address] PCP - General Internal Medicine 11/23/20 03/28/21 Hollie Nicholas MD [address] [place] [address] PCP - General Internal Medicine 03/29/21 11/07/21 Karin Clemente MD [address] [place] [address] PCP - General Internal Medicine 11/08/21 Amy Block DNP [address] [place] [address] Specialist Nurse Practitioner Family 10/11/23 Carlee Marcelo MD [address] [place] [address] Specialist Cardiology 10/11/23 documented as of this encounter
--- OUTSIDE RECORDS SUMMARY | 2024-11-30 20:38 | XMS_ITS | Encounter Summary ---
Author Organization [facility] Address [address] [place] [address] Care Team Providers Care Drugless Doctor Name Role Phone Rae Boss DO Primary Care Pro vider Unavailable Chuck Cervantes MD Primary Care Provider Unavailab Erika Herrera MD Primary Care Provider [phone] Hollie Nicholas MD Primary Care Provider Karin Vyas MD Primary Care Provider [phone] Amy Block DNP Unavailable [phone] Carlee Marcelo MD Unavailable [phone] Reason for Visit * Reason Comments E-prescribe Rx Request Encounter Details Date Type Department Care Team Description 01/30/2020 Refill Adult Medicine [address] [phone] Rae Boss DO E-prescribe Rx Request Social [...] Telephone Encounter - Lindsay Snell M.A. - 01/31/2020 10:25 AM EDT Lab Results Component Value Date 25OHD 52 05/13/2019 * Telephone Encounter - Katey Long - 01/31/2020 10:20 AM EDT Patient would like script to be:??E-PRESCRIBED/FAXED TO PHARMACY? WHEN WAS THE PATIENT'S LAST APPOINTMENT IN ADULT MEDICINE???10/07/2019 ?? WHEN WAS THE LAST TIME THE PATIENT SAW THEIR PCP???Same as above ?? Does patient have an upcoming appointment???Yes??03/18/2020 ?? (THE MEDICATION REQUESTED??IS ON THE MED LIST ABOVE) All of the medications requested were on the CURRENT MEDS list ?? Did you check the Pharmacy information above?:??YES ?? Patient wants:??30 -day supply ?? Is this a mail order prescription request ?NO ?? If the refill is from a FAXED refill request what is the RX # listed on the fax???N/A ?? Patients current insurance carrier is: Payor: [employer] FFS / Plan: [facility] / Product Type: MEDICAID RISK ?? documented in this encounter Plan of Treatment Not on file documented as of this encounter Visit Diagnoses Not on filedocumented in this encounter Care Teams Drugless Doctor Relationship Specialty Start Date End Date Rae Boss DO PCP - General Internal Medicine 11/20/14 08/19/20 Chuck Cervantes MD PCP - General Internal Medicine 08/20/20 11/22/20 Erika Burciaga MD [address] [place] [address] PCP - General Internal Medicine 11/23/20 03/28/21 Hollie Nicholas MD [address] [place] [address] PCP - General Internal Medicine 03/29/21 11/07/21 Karin Clemente MD [address] [place] [address] PCP - General Internal Medicine 11/08/21 Amy Block DNP [address] [place] [address] Specialist Nurse Practitioner Family 10/11/23 Carlee Marcelo MD [address] [place] [address] 6[address]48 Specialist Cardiology 10/11/23 documented as of this encounter
--- OUTSIDE RECORDS SUMMARY | 2024-11-30 20:38 | XMS_ITS | Encounter Summary ---
Author Organization [facility] Address [address] [place] [address] Care Team Providers Care Assistant Director Of Security Name Role Phone Rae Boss DO Primary Care Pro vider Unavailable Chuck Cervantes MD Primary Care Provider Unavailab Erika Herrera MD Primary Care Provider [phone] Hollie Nicholas MD Primary Care Provider Karin Vyas MD Primary Care Provider [phone] Amy Block DNP Unavailable [phone] Carlee Marcelo MD Unavailable [phone] Encounter Details Date Type Department Care Team Description 09/05/2019 Release of Information Medical Records [address] [place] [phone] Abstract, Provider Social History Tobacco Use Types [...] on file documented as of this encounter Nursing Notes * Jesusita Rios - 09/05/2019 2:27 PM EDT AUTHORIZATION TO OBTAIN RECORDS MAILED TO [facility]. documented in this encounter Plan of Treatment Not on file documented as of this encounter Visit Diagnoses Not on filedocumented in this encounter Care Teams Assistant Director Of Security Relationship Specialty Start Date End Date Rae Boss DO PCP - General Internal Medicine 11/20/14 08/19/20 Chuck Cervantes MD PCP - General Internal Medicine 08/20/20 11/22/20 Erika Burciaga MD [address] [place] [address] PCP - General Internal Medicine 11/23/20 03/28/21 Hollie Nicholas MD [address] [place] [address] PCP - General Internal Medicine 03/29/21 11/07/21 Karin Clemente MD [address] [place] [address] PCP - General Internal Medicine 11/08/21 Amy Block DNP [address] [place] [address] Specialist Nurse Practitioner Family 10/11/23 Carlee Marcelo MD [address] [place] [address] Specialist Cardiology 10/11/23 documented as of this encounter
--- OUTSIDE RECORDS SUMMARY | 2024-11-30 20:38 | XMS_ITS | Encounter Summary ---
Author Organization [facility] Address [address] [place] [address] Care Team Providers Care Rn Radiology Name Role Phone Hollie Nicholas MD Primary Care Provider Karin Vyas MD Primary Care Provider [phone] Amy Block DNP Unavailable [phone] Carlee Marcelo MD Unavailable [phone] Reason for Visit * Reason Comments E-prescribe Rx Request Encounter Details Date Type Department Care Team Description 08/01/2021 Refill Adult Medicine [address] [phone] Ada Diamond PA-C E-prescribe Rx Request Social [...] Sherry Vyas PAC 08/09/21 Last appt with Shrery 06/2021 documented in this encounter Plan of Treatment Not on file documented as of this encounter Visit Diagnoses Not on filedocumented in this encounter Care Teams Rn Radiology Relationship Specialty Start Date End Date Hollie Nicholas MD PCP - General Internal Medicine 03/29/21 11/07/21 Karin Clemente MD [address] [place] [address] PCP - General Internal Medicine 11/08/21 Amy Block DNP [address] [place] [address] Specialist Nurse Practitioner [facility] 10/11/23 Carlee Marcelo MD [address] [place] [address] Specialist Cardiology 10/11/23 documented as of this encounter
--- OUTSIDE RECORDS SUMMARY | 2024-11-30 20:38 | XMS_ITS | Encounter Summary ---
Author Organization [facility] Address [address] [place] [address] Care Team Providers Care Surgical Technology Instructor Name Role Phone Hollie Nicholas MD Primary Care Provider Karin Vyas MD Primary Care Provider [phone] Amy Block DNP Unavailable [phone] Carlee Marcelo MD Unavailable [phone] Reason for Visit * Reason Comments E-prescribe Rx Request Encounter Details Date Type Department Care Team Description 10/31/2021 Refill Adult Medicine [address] [phone] Jeromy José PAAlmaC [address] [place] [address] [phone] E-prescribe Rx Request Social History Tobacco Use [...] suspected to have Coronavirus/COVID-19? No / Unsure 10/09/2021 1:03 PM EDT documented as of this encounter Miscellaneous Notes * Telephone Encounter - Lindsay Snell M.A. - 11/01/2021 11:41 AM EDT Last office visit 08/20/21 Next office visit 02/21/[address]e * Telephone Encounter - Laurita Gomez - 11/01/2021 11:29 AM EDT Patient would like script to [...] N/A Patients current insurance carrier is: Payor: [facility] FFS / Plan: [facility] / Product Type: MEDICAID RISK documented in this encounter Plan of Treatment Not on file documented as of this encounter Visit Diagnoses Not on filedocumented in this encounter Care Teams Surgical Technology Instructor Relationship Specialty Start Date End Date Hollie Nicholas MD PCP - General Internal Medicine 03/29/21 11/07/21 Karin Clemente MD [address] [place] [address] PCP - General Internal Medicine 11/08/21 Amy Block DNP [address] [place] [address] Specialist Nurse Practitioner Family 10/11/23 Carlee Marcelo MD [address] [place] [address]14 Specialist Cardiology 10/11/23 documented as of this encounter
--- OUTSIDE RECORDS SUMMARY | 2024-11-30 20:38 | XMS_ITS | Encounter Summary ---
Author Organization [facility] Address [address] [place] [address] Care Team Providers Care Washing Machine Mechanic Name Role Phone Rae Boss DO Primary Care Pro vider Unavailable Chuck Cervantes MD Primary Care Provider Unavailab Erika Herrera MD Primary Care Provider [phone] Hollie Nicholas MD Primary Care Provider Karin Vyas MD Primary Care Provider [phone] Amy Block DNP Unavailable [phone] Carlee Marcelo MD Unavailable [phone] Reason for Visit * Reason Onset Date Comments er follow up 04/09/2018 Encounter Details Date Type Department Care Team Description 04/09/2018 Telephone Adult Medicine [address] [id number] Rae Boss DO er follow up Social [...] encounter Miscellaneous Notes * Telephone Encounter - Priscilla Calhoun - 04/09/2018 8:34 AM EST ER follow-up appointment booked YES 04/12/18 If ER or UC follow up, can be booked with APC or MD. If hospital admission follow up MUST be booked with a physician Appointment time: 8:45AM Provider visit is scheduled with: Karen Vazquez PA-C Hospital/UC center patient was treated at: [facility] Date of visit: 04/08/18 Was this only an ER/UC visit or was the patient admitted to the hospital? ER visit onlyER visit only If patient was admitted what was the date of discharge? N/A Reason/diagnosis for visit or stay: Headache Was visit or stay related to an injury? NO If yes, what was the date of injury (DOI)? N/A If yes, was the injury due to N/A Tests performed: Lab: YES X-ray: YES EKG: NO Other tests. If yes, what?; N/A documented in this encounter Plan of Treatment Not on file documented as of this encounter Visit Diagnoses Not on filedocumented in this encounter Care Teams Washing Machine Mechanic Relationship Specialty Start Date End Date Rae Boss DO PCP - General Internal Medicine 11/20/14 08/19/20 Chuck Cervantes MD PCP - General Internal Medicine 08/20/20 11/22/20 Erika Burciaga MD [address] [place], [place] [phone] PCP - General Internal Medicine 11/23/20 03/28/21 Hollie Nicholas MD [address] [place] [address] PCP - General Internal Medicine 03/29/21 11/07/21 Karin Clemente MD [address] [place], [place] [phone] PCP - General Internal Medicine 11/08/21 Amy Block DNP [address] [place] [address] Specialist Nurse Practitioner Family 10/11/23 Carlee Marcelo MD [address] [place] [address] Specialist Cardiology 10/11/23 documented as of this encounter
--- OUTSIDE RECORDS SUMMARY | 2024-11-30 20:38 | XMS_ITS | Encounter Summary ---
Author Organization [facility] Address [address] [place] [address] Care Team Providers Care Belling Machine Operator Name Role Phone Rae Boss DO Primary Care Pro vider Unavailable Chuck Cervantes MD Primary Care Provider Unavailab Erika Herrera MD Primary Care Provider [phone] Hollie Nicholas MD Primary Care Provider Karin Vyas MD Primary Care Provider [phone] Amy Block DNP Unavailable [phone] Carlee Marcelo MD Unavailable [phone] Reason for Visit * Reason Comments E-prescribe Rx Request Encounter Details Date Type Department Care Team Description 12/26/2019 Refill Adult Medicine [address] [id number] Laurita Ayala PA-C E-prescribe Rx Request Social [...] N/A Patients current insurance carrier is: Payor: [employer] FFS / Plan: [employer] ALLIANCE / Product Type: MEDICAID RISK documented in this encounter Plan of Treatment Not on file documented as of this encounter Visit Diagnoses Not on filedocumented in this encounter Care Teams Belling Machine Operator Relationship Specialty Start Date End Date Rae Boss DO PCP - General Internal Medicine 11/20/14 08/19/20 Chuck Cervantes MD PCP - General Internal Medicine 08/20/20 11/22/20 Erika Burciaga MD [address] [place] [address] PCP - General Internal Medicine 11/23/20 03/28/21 Hollie Nicholas MD [address] [place] [address] PCP - General Internal Medicine 03/29/21 11/07/21 Karin Clemente MD [address] [place] [address] PCP - General Internal Medicine 11/08/21 Amy Block DNP [address] [place] [address] Specialist Nurse Practitioner Family 10/11/23 Carlee Marcelo MD [address] [place] [address]91 Specialist Cardiology 10/11/23 documented as of this encounter
--- OUTSIDE RECORDS SUMMARY | 2024-11-30 20:38 | XMS_ITS | Encounter Summary ---
Author Organization [facility] Address [address] [place] [address] Care Team Providers Care Solid Tire Tuber Machine Operator Name Role Phone Karin Clemente MD Primary Care Provider [phone] Amy Block DNP Unavailable [phone] Carlee Marcelo MD Unavailable [phone] Encounter Details Date Type Department Care Team Description 10/26/2022 Refill Adult Medicine [address] [id number] Karin Clemente MD [address] [place] [address] [id number] Social History Tobacco Use Types Packs/Day Years [...] filedocumented in this encounter Care Teams Solid Tire Tuber Machine Operator Relationship Specialty Start Date End Date Karin Clemente MD [address] [place] [address] PCP - General Internal Medicine 11/08/21 Amy Block DNP [address] [place] [address]36 Specialist Nurse Practitioner Family 10/11/23 Carlee Marcelo MD [address] [place] [address] Specialist Cardiology 10/11/23 documented as of this encounter
--- OUTSIDE RECORDS SUMMARY | 2024-11-30 20:38 | XMS_ITS | Encounter Summary ---
Author Organization [facility] Address [address] [place] [address] Care Team Providers Care Patternmaker Apprentice Metal Name Role Phone Rae Boss DO Primary Care Pro vider Unavailable Chuck Cervantes MD Primary Care Provider Unavailab Erika Herrera MD Primary Care Provider [phone] Hollie Nicholas MD Primary Care Provider Karin Vyas MD Primary Care Provider [phone] Amy Block DNP Unavailable [phone] Carlee Marcelo MD Unavailable [phone] Encounter Details Date Type Department Care Team Description 02/06/2016 SCAN Medical Records [address] [place] [address] Abstract, Provider Social History Tobacco Use Types [...] Name Priority Date/Time Associated Diagnosis Comments OUTSIDE EEG Routine 01/22/2016 documented in this encounter Results * OUTSIDE EEG (01/22/2016) Provider Abstract PERFORMABLES documented in this encounter Visit Diagnoses Not on filedocumented in this encounter Care Teams Patternmaker Apprentice Metal Relationship Specialty Start Date End Date Rae Boss DO PCP - General Internal Medicine 11/20/14 08/19/20 Chuck Cervantes MD PCP - General Internal Medicine 08/20/20 11/22/20 Erika Burciaga MD [address] [place] [address] PCP - General Internal Medicine 11/23/20 03/28/21 Hollie Nicholas MD [address] [place] [address] PCP - General Internal Medicine 03/29/21 11/07/21 Karin Clemente MD [address] [place] [address] PCP - General Internal Medicine 11/08/21 Amy Block DNP [address] [place] [address] Specialist Nurse Practitioner Family 10/11/23 Carlee Marcelo MD [address] [place] [address] Specialist Cardiology 10/11/23 documented as of this encounter
--- OUTSIDE RECORDS SUMMARY | 2024-11-30 20:38 | XMS_ITS | Encounter Summary ---
Author Organization [facility] Address [address] [place] [address] Care Team Providers Care Psychology Teacher Name Role Phone Rae Boss DO Primary Care Pro vider Unavailable Chuck Cervantes MD Primary Care Provider Unavailab Erika Herrera MD Primary Care Provider [phone] Hollie Nicholas MD Primary Care Provider Karin Vyas MD Primary Care Provider [phone] Amy Block DNP Unavailable [phone] Carlee Marcelo MD Unavailable [phone] Reason for Visit * Reason Onset Date Comments APPOINTMENT 03/14/2016 Encounter Details Date Type Department Care Team Description 03/14/2016 Telephone Gastroenterology - [address] [phone] Annie Flores MD APPOINTMENT Social History Tobacco [...] on filedocumented in this encounter Care Teams Psychology Teacher Relationship Specialty Start Date End Date Rae Boss DO PCP - General Internal Medicine 11/20/14 08/19/20 Chuck Cervantes MD PCP - General Internal Medicine 08/20/20 11/22/20 Erika Burciaga MD [address] [place] [address] PCP - General Internal Medicine 11/23/20 03/28/21 Hollie Nicholas MD [address] [place] [address] PCP - General Internal Medicine 03/29/21 11/07/21 Karin Clemente MD [address] [place] [address] PCP - General Internal Medicine 11/08/21 Amy Block DNP [address] [place] [address]39 Specialist Nurse Practitioner Family 10/11/23 Carlee Marcelo MD [address] [place] [address] Specialist Cardiology 10/11/23 documented as of this encounter
--- OUTSIDE RECORDS SUMMARY | 2024-11-30 20:38 | XMS_ITS | Encounter Summary ---
Author Organization [facility] Address [address] [place] [address] Care Team Providers Care Heat Treat Puller Name Role Phone Hollie Nicholas MD Primary Care Provider Karin Vyas MD Primary Care Provider [phone] Amy Block DNP Unavailable [phone] Carlee Marcelo MD Unavailable [phone] Encounter Details Date Type Department Care Team Description 05/07/2021 Oil Lease Buyer Report Medical Records [address] [place] [address] Morena Allison, ES Social History Tobacco Use [...] on filedocumented in this encounter Care Teams Heat Treat Puller Relationship Specialty Start Date End Date Hollie Nicholas MD PCP - General Internal Medicine 03/29/21 11/07/21 Karin Clemente MD [address] [place] [address] PCP - General Internal Medicine 11/08/21 Amy Block DNP [address] [place] [address]35 Specialist Nurse Practitioner [facility] 10/11/23 Carlee Marcelo MD [address] [place] [address]88 Specialist Cardiology 10/11/23 documented as of this encounter
--- OUTSIDE RECORDS SUMMARY | 2024-11-30 20:38 | XMS_ITS | Encounter Summary ---
Author Organization [facility] Address [address] [place] [address] Care Team Providers Care Conservation Technician Name Role Phone Rae Boss DO Primary Care Pro vider Unavailable Chuck Cervantes MD Primary Care Provider Unavailab Erika Herrera MD Primary Care Provider [phone] Hollie Nicholas MD Primary Care Provider Karin Vyas MD Primary Care Provider [phone] Amy Block DNP Unavailable [phone] Carlee Marcelo MD Unavailable [phone] Encounter Details Date Type Department Care Team Description 02/17/2015 Firer Locomotive Crane Report Medical Records [address] [place] [address] Social History Tobacco Use Types Packs/Day Years [...] on filedocumented in this encounter Care Teams Conservation Technician Relationship Specialty Start Date End Date Rae Boss DO PCP - General Internal Medicine 11/20/14 08/19/20 Chuck Cervantes MD PCP - General Internal Medicine 08/20/20 11/22/20 Erika Burciaga MD [address] [place] [address] PCP - General Internal Medicine 11/23/20 03/28/21 Hollie Nicholas MD [address] [place] [address] PCP - General Internal Medicine 03/29/21 11/07/21 Karin Clemente MD [address] [place] [address] PCP - General Internal Medicine 11/08/21 Amy Block DNP [address] [place], [place] [phone] Specialist Nurse Practitioner Family 10/11/23 Carlee Marcelo MD [address] [place], [place] [phone] Specialist Cardiology 10/11/23 documented as of this encounter
--- OUTSIDE RECORDS SUMMARY | 2024-11-30 20:38 | XMS_ITS | Encounter Summary ---
Author Organization [facility] Address [address] [place] [address] Care Team Providers Care Draw Press Operator Name Role Phone Rae Boss DO Primary Care Pro vider Unavailable Chuck Cervantes MD Primary Care Provider Unavailab Erika Herrera MD Primary Care Provider [phone] Hollie Nicholas MD Primary Care Provider UnaKarin Nation MD Primary Care Provider [phone] Amy Block DNP Unavailable Carlee Marcelo MD Unavailable [phone] Reason for Visit * Reason Onset Date Comments refill request 08/27/2019 Encounter Details Date Type Department Care Team Description 08/27/2019 Refill OBGYN - [address] [facility] [address] [place] [address] Archana Ochoa [facility] [address] [place] [address] refill request Social History Tobacco [...] EDT WHEN WAS THE PATIENTS LAST ANNUAL BLASTING COAL MINER EXAM? 05/13/2019 Does patient have an upcoming [...] NO Payor: [employer] FFS / Plan: [employer] ALLIANCE / Product Type: MEDICAID RISK documented in this encounter Plan of Treatment Not on file documented as of this encounter Visit Diagnoses Not on filedocumented in this encounter Care Teams Draw Press Operator Relationship Specialty Start Date End Date Rae Boss DO PCP - General Internal Medicine 11/20/14 08/19/20 Chuck Cervantes MD PCP - General Internal Medicine 08/20/20 11/22/20 Erika Burciaga MD [address] [place] [address] PCP - General Internal Medicine 11/23/20 03/28/21 Hollie Nicholas MD [address] [place] [address] PCP - General Internal Medicine 03/29/21 11/07/21 Karin Clemente MD [address] [place] [address] PCP - General Internal Medicine 11/08/21 Amy Block DNP [address] [place] [address] Specialist Nurse Practitioner Family 10/11/23 Carlee Marcelo MD [address] [place] [address] Specialist Cardiology 10/11/23 documented as of this encounter
--- OUTSIDE RECORDS SUMMARY | 2024-11-30 20:38 | XMS_ITS | Encounter Summary ---
Author Organization [facility] Address [address] [place] [address] Care Team Providers Care Cone Treater Name Role Phone Rae Boss DO Primary Care Pro vider Unavailable Chuck Cervantes MD Primary Care Provider Unavailab Erika Herrera MD Primary Care Provider [phone] Hollie Nicholas MD Primary Care Provider Karin Vyas MD Primary Care Provider [phone] Amy Block DNP Unavailable [phone] Carlee Marcelo MD Unavailable [phone] Encounter Details Date Type Department Care Team Description 01/31/2020 Occupational Health Coordinator Report Medical Records [address] [place] [address] María Ridley MD Social History Tobacco Use Types Packs/Day [...] on filedocumented in this encounter Care Teams Cone Treater Relationship Specialty Start Date End Date Rae Boss DO PCP - General Internal Medicine 11/20/14 08/19/20 Chuck Cervantes MD PCP - General Internal Medicine 08/20/20 11/22/20 Erika Burciaga MD [address] [place] [address] PCP - General Internal Medicine 11/23/20 03/28/21 Hollie Nicholas MD [address] [place] [address] PCP - General Internal Medicine 03/29/21 11/07/21 Karin Clemente MD [address] [place] [address] PCP - General Internal Medicine 11/08/21 Amy Block DNP [address] [place] [address]05 Specialist Nurse Practitioner Family 10/11/23 Carlee Marcelo MD [address] [place] [address]40 Specialist Cardiology 10/11/23 documented as of this encounter
--- OUTSIDE RECORDS SUMMARY | 2024-11-30 20:38 | XMS_ITS | Encounter Summary ---
Author Organization [facility] Address [address] [place] [address] Care Team Providers Care Dumpman Name Role Phone Karin Clemente MD Primary Care Provider [phone] Amy Block DNP Unavailable [phone] Carlee Marcelo MD Unavailable [phone] Reason for Visit * Reason Onset Date Comments Faxed Order 01/05/2023 Select PT plan o f care 12/23/22 Encounter Details Date Type Department Care Team Description 01/05/2023 Telephone Adult Medicine [facility] [address] [place] [address] [phone] Karin Clemente MD [address] [place] [address] [phone] Faxed Order (Select PT plan of care 12/23/22) Social History Tobacco Use Types Packs/Day Years [...] suspected to have Coronavirus/COVID-19? No / Unsure 12/29/2022 7:32 AM EDT documented as of this encounter Miscellaneous Notes * Telephone Encounter - Juyd Campoverde - 01/05/2023 2:28 PM EDT Select PT plan of care 12/23/22 documented in this encounter Plan of Treatment Not on file documented as of this encounter Visit Diagnoses Not on filedocumented in this encounter Care Teams Dumpman Relationship Specialty Start Date End Date Karin Clemente MD [address] [place] [address] PCP - General Internal Medicine 11/08/21 Amy Block DNP [address] [place] [address]57 Specialist Nurse Practitioner Family 10/11/23 Carlee Marcelo MD [address] [place] [address]600 Specialist Cardiology 10/11/23 documented as of this encounter
--- OUTSIDE RECORDS SUMMARY | 2024-11-30 20:38 | XMS_ITS | Encounter Summary ---
Author Organization [facility] Address [address] [place] [address] Care Team Providers Care Technical Buyer Name Role Phone Hollie Nicholas MD Primary Care Provider Karin Vyas MD Primary Care Provider [phone] Amy Block DNP Unavailable [phone] Carlee Marcelo MD Unavailable [phone] Encounter Details Date Type Department Care Team Description 05/05/2021 Refill Adult Medicine [address] [place] [address] [address] Hollie Nicholas MD Social History Tobacco Use Types Packs/Day [...] encounter Miscellaneous Notes * Telephone Encounter - Ene Cordova M.A. - 05/05/2021 1:25 PM EST Lab Results Component Value Date NA 139 04/29/2021 K 4.1 04/29/2021 CO2 26 04/29/2021 CL 107 04/29/2021 BUN 12 04/29/2021 CREAT 0.90 04/29/2021 GLU 62 04/29/2021 CA 9.0 04/29/2021 GFR > 60 04/29/2021 Spoke to Kasey at [facility], patient is changing pharmacies and per [facility] these medications do not have refills to transfer to [facility]. ANGELI 03/29/21 NOV 06/28/21 - [place] NEW to PCP * Telephone Encounter - Leora Derrell - 05/05/2021 10:38 AM EST Patient would like script to be: E-PRESCRIBED/FAXED TO PHARMACY / WHEN WAS THE PATIENT'S LAST APPOINTMENT IN ADULT MEDICINE? 03/29/21 WHEN WAS THE LAST TIME THE PATIENT SAW THEIR PCP? Same as above PCP was Dr. Burciaga Does patient have an upcoming appointment? Yes 06/28/21 (THE MEDICATION REQUESTED IS ON THE MED [...] N/A Patients current insurance carrier is: Payor: [employer] FFS / Plan: [employer] / Product Type: MEDICAID RISK documented in this encounter Plan of Treatment Not on file documented as of this encounter Visit Diagnoses Diagnosis Allergic rhinitis, unspecified seasonality, unspecified trigger documented in this encounter Care Teams Technical Buyer Relationship Specialty Start Date End Date Hollie Nicholas MD PCP - General Internal Medicine 03/29/21 11/07/21 Karin Clemente MD [address] [place] [address] PCP - General Internal Medicine 11/08/21 Amy Block DNP [address] [place] [address]70 Specialist Nurse Practitioner Family 10/11/23 Carlee Marcelo MD [address] [place] [address] 42033 Specialist Cardiology 10/11/23 documented as of this encounter
--- OUTSIDE RECORDS SUMMARY | 2024-11-30 20:38 | XMS_ITS | Encounter Summary ---
Author Organization [facility] Address [address] [place] [address] Care Team Providers Care Truck Bracer Name Role Phone Rae Boss DO Primary Care Pro vider Unavailable Chuck Cervantes MD Primary Care Provider Unavailab Erika Herrera MD Primary Care Provider [phone] Hollie Nicholas MD Primary Care Provider Karin Vyas MD Primary Care Provider [phone] Amy Block DNP Unavailable [phone] Carlee Marcelo MD Unavailable [phone] Encounter Details Date Type Department Care Team Description 03/16/2018 Fleet Mechanic Report Medical Records [address] [place] [address] Charmaine Carter Social History Tobacco Use Types [...] on filedocumented in this encounter Care Teams Truck Bracer Relationship Specialty Start Date End Date Rae Boss DO PCP - General Internal Medicine 11/20/14 08/19/20 Chuck Cervantes MD PCP - General Internal Medicine 08/20/20 11/22/20 Erika Burciaga MD [address] [place] [address] PCP - General Internal Medicine 11/23/20 03/28/21 Hollie Nicholas MD [address] [place], [place] [phone] PCP - General Internal Medicine 03/29/21 11/07/21 Karin Clemente MD [address] [place] [address] PCP - General Internal Medicine 11/08/21 Amy Block DNP [address] [place] [address]782 Specialist Nurse Practitioner Family 10/11/23 Carlee Marcelo MD [address] [place] [address]125 Specialist Cardiology 10/11/23 documented as of this encounter
--- OUTSIDE RECORDS SUMMARY | 2024-11-30 20:38 | XMS_ITS | Encounter Summary ---
Author Organization [facility] Address [address] [place] [address] Care Team Providers Care Program Director/Air Personality Name Role Phone Rae Boss DO Primary Care Pro vider Unavailable Chuck Cervantes MD Primary Care Provider Unavailab Erika Herrera MD Primary Care Provider [phone] Hollie Nicholas MD Primary Care Provider Karin Vyas MD Primary Care Provider [phone] Amy Block DNP Unavailable [phone] Carlee Marcelo MD Unavailable [phone] Reason for Visit * Reason Comments E-prescribe Rx Request Encounter Details Date Type Department Care Team Description 10/30/2019 Refill Adult Medicine [address] [phone] Rae Boss DO E-prescribe Rx Request Social [...] N/A Patients current insurance carrier is: Payor: [employer] FFS / Plan: [employer] / Product Type: MEDICAID RISK documented in this encounter Plan of Treatment Not on file documented as of this encounter Visit Diagnoses Not on filedocumented in this encounter Care Teams Program Director/Air Personality Relationship Specialty Start Date End Date Rae Boss DO PCP - General Internal Medicine 11/20/14 08/19/20 Chuck Cervantes MD PCP - General Internal Medicine 08/20/20 11/22/20 Erika Burciaga MD [address] [place] [address] PCP - General Internal Medicine 11/23/20 03/28/21 Hollie Nicholas MD [address] [place] [address] PCP - General Internal Medicine 03/29/21 11/07/21 Karin Clemente MD [address] [place] [address] PCP - General Internal Medicine 11/08/21 Amy Block DNP [address] [place] [address] Specialist Nurse Practitioner Family 10/11/23 Carlee Marcelo MD [address] [place] [address] Specialist Cardiology 10/11/23 documented as of this encounter
--- OUTSIDE RECORDS SUMMARY | 2024-11-30 20:38 | XMS_ITS | Encounter Summary ---
Author Organization [facility] Address [address] [place] [address] Care Team Providers Care Electronics Manufacturer Name Role Phone Rae Boss DO Primary Care Pro vider Unavailable Chuck Cervantes MD Primary Care Provider Unavailab Erika Herrera MD Primary Care Provider [phone] Hollie Nicholas MD Primary Care Provider Karin Vyas MD Primary Care Provider [phone] Amy Block DNP Unavailable Carlee Marcelo MD Unavailable [phone] Reason for Visit * Reason Comments E-prescribe Rx Request Encounter Details Date Type Department Care Team Description 03/24/2018 Refill LIQUOR TESTER - [place] [address] [place] [address] Archana Ochoa CNM [address] [place] [phone] E-prescribe Rx Request Social History Tobacco Use [...] on filedocumented in this encounter Care Teams Electronics Manufacturer Relationship Specialty Start Date End Date Rae Boss DO PCP - General Internal Medicine 11/20/14 08/19/20 Chuck Cervantes MD PCP - General Internal Medicine 08/20/20 11/22/20 Erika Burciaga MD [address] [place] [address] PCP - General Internal Medicine 11/23/20 03/28/21 Hollie Nicholas MD [address] [place] [address] PCP - General Internal Medicine 03/29/21 11/07/21 Karin Clemente MD [address] [place] [address] PCP - General Internal Medicine 11/08/21 Amy Block DNP [address] [place] [address] Specialist Nurse Practitioner Family 10/11/23 Carlee Marcelo MD [address] [place] [address]86 Specialist Cardiology 10/11/23 documented as of this encounter
--- OUTSIDE RECORDS SUMMARY | 2024-11-30 20:38 | XMS_ITS | Encounter Summary ---
Author Organization [facility] Address [address] [place] [address] Care Team Providers Care Insurance Marketing Specialist Name Role Phone Karin Clemente MD Primary Care Provider [phone] Amy Block DNP Unavailable [phone] Carlee Marcelo MD Unavailable Reason for Visit * Reason Onset Date Comments medication problems 02/14/2023 Encounter Details Date Type Department Care Team Description 02/14/2023 Telephone Adult Medicine [address] [phone] Karin Clemente MD [address] [place] [address] [phone] medication problems Social History Tobacco Use Types [...] Telephone Encounter - Sachi Cheung M.A. - 02/14/2023 3:47 PM EST There are 2 messages re: ear solution. * Telephone Encounter - Radha Rendon MD - 02/14/2023 3:05 PM EST Yes patient should be able to get otc Patient to also f/u ENT * Telephone Encounter - Cindy Colorado - 02/14/2023 2:[address] Rendon is this something the pt can get over the counter? * Telephone Encounter - Gareth Herzog - 02/14/2023 2:38 PM EST Who is calling? A pharmacist: [facility]acy: [facility] Pharmacist Name: [facility] Name of the medication [place] Oil, Otic, (Ear Wax Removal System) Oil 10 mL 2 02/14/2023 Sig - Route: Place 5 Drops in ear(s) 2 times daily. - Otic What is the specific problem or interaction? States this oil based treatment does not exist. Is looking for clarification if this was sent correctly. If the patient is having a problem with taking the med - how long has the problem been going on? N/A documented in this encounter Plan of Treatment Not on file documented as of this encounter Visit Diagnoses Not on filedocumented in this encounter Care Teams Insurance Marketing Specialist Relationship Specialty Start Date End Date Karin Clemente MD [address] [place] [address] PCP - General Internal Medicine 11/08/21 Amy Block DNP [address] [place] [address] 61825 Specialist Nurse Practitioner Family 10/11/23 Carlee Marcelo MD [address] [place] [address] [phone] Specialist Cardiology 10/11/23 documented as of this encounter
--- OUTSIDE RECORDS SUMMARY | 2024-11-30 20:38 | XMS_ITS | Encounter Summary ---
Author Organization [facility] Address [address] [place] [address] Care Team Providers Care Biostatistician Name Role Phone Rae Boss DO Primary Care Pro vider Unavailable Chuck Cervantes MD Primary Care Provider Unavailab Erika Herrera MD Primary Care Provider [phone] Hollie Nicholas MD Primary Care Provider Karin Vyas MD Primary Care Provider [phone] Amy Block DNP Unavailable [phone] Carlee Marcelo MD Unavailable [phone] Reason for Visit * Reason Comments E-prescribe Rx Request Encounter Details Date Type Department Care Team Description 09/21/2019 Refill Adult Medicine [address] [phone] Rae Boss DO E-prescribe Rx Request Social [...] encounter Miscellaneous Notes * Telephone Encounter - Maranda Campbell - 09/21/2019 4:26 PM EDT Patient would like script to be: E-PRESCRIBED/FAXED TO PHARMACY WHEN WAS THE PATIENT'S LAST APPOINTMENT IN ADULT MEDICINE? 09/03/2019 WHEN WAS THE LAST TIME THE PATIENT SAW THEIR PCP? 03/08/2019 Does patient have an upcoming appointment? No-patient refused appointment, will call back to book appointment (THE MEDICATION REQUESTED IS ON THE MED [...] N/A Patients current insurance carrier is: Payor: [employer] FFS / Plan: [employer] / Product Type: MEDICAID RISK documented in this encounter Plan of Treatment Not on file documented as of this encounter Visit Diagnoses Not on filedocumented in this encounter Care Teams Biostatistician Relationship Specialty Start Date End Date Rae Boss DO PCP - General Internal Medicine 11/20/14 08/19/20 Chuck Cervantes MD PCP - General Internal Medicine 08/20/20 11/22/20 Erika Burciaga MD [address] [place] [address] PCP - General Internal Medicine 11/23/20 03/28/21 Hollie Nicholas MD [address] [place], [place] [phone] PCP - General Internal Medicine 03/29/21 11/07/21 Karin Clemente MD [address] [place] [address] PCP - General Internal Medicine 11/08/21 Amy Block DNP [address] [place] [address] 32772 Specialist Nurse Practitioner Family 10/11/23 Carlee Marcelo MD [address] [place] [address] 29237 Specialist Cardiology 10/11/23 documented as of this encounter
--- OUTSIDE RECORDS SUMMARY | 2024-11-30 20:39 | XMS_ITS | Encounter Summary ---
Author Organization [facility] Address [address] [place] [address] Care Team Providers Care Research Subject Name Role Phone Karin Clemente MD Primary Care Provider [phone] Amy Block DNP Unavailable [phone] Carlee Marcelo MD Unavailable [phone] Encounter Details Date Type Department Care Team Description 04/04/2023 Information Systems Security Specialist Report Medical Records [address] [place] [address] Enrike Cardoso Social History Tobacco Use Types Packs/Day Years [...] on filedocumented in this encounter Care Teams Research Subject Relationship Specialty Start Date End Date Karin Clemente MD [address] [place] [address] 80777 PCP - General Internal Medicine 11/08/21 Amy Block DNP [address] [place] [address] 18421 Specialist Nurse Practitioner Family 10/11/23 Carlee Marcelo MD [address] [place] [address] Specialist Cardiology 10/11/23 documented as of this encounter
--- OUTSIDE RECORDS SUMMARY | 2024-11-30 20:39 | XMS_ITS | Encounter Summary ---
Author Organization [facility] Address [address] [place] [address] Care Team Providers Care Fruit Washer Name Role Phone Rae Boss DO Primary Care Pro vider Unavailable Chuck Cervantes MD Primary Care Provider Unavailab Erika Herrera MD Primary Care Provider [phone] Hollie Nicholas MD Primary Care Provider Karin Vyas MD Primary Care Provider [phone] Amy Block DNP Unavailable [phone] Carlee Marcelo MD Unavailable [phone] Encounter Details Date Type Department Care Team Description 05/20/2020 Refill Adult Medicine [address] [phone] Rae Boss DO Social History Tobacco Use [...] have Coronavirus / COVID-19? No / Unsure 05/11/2020 2:25 PM EST documented as of this encounter Plan of Treatment Not on file documented as of this encounter Visit Diagnoses Not on filedocumented in this encounter Care Teams Fruit Washer Relationship Specialty Start Date End Date Rae Boss DO PCP - General Internal Medicine 11/20/14 08/19/20 Chuck Cervantes MD PCP - General Internal Medicine 08/20/20 11/22/20 Erika Burciaga MD [address] [place] [address] PCP - General Internal Medicine 11/23/20 03/28/21 Hollie Nicholas MD [address] [place] [address] PCP - General Internal Medicine 03/29/21 11/07/21 Karin Clemente MD [address] [place] [address] PCP - General Internal Medicine 11/08/21 Amy Block DNP [address] [place] [address] Specialist Nurse Practitioner Family 10/11/23 Carlee Marcelo MD [address] [place] [address] Specialist Cardiology 10/11/23 documented as of this encounter
--- OUTSIDE RECORDS SUMMARY | 2024-11-30 20:39 | XMS_ITS | Encounter Summary ---
Author Organization [facility] Address [address] [place] [address] Care Team Providers Care Assistant Tennis Coach Name Role Phone Karin Clemente MD Primary Care Provider [phone] Amy Block DNP Unavailable [phone] Carlee Marcelo MD Unavailable [phone] Reason for Visit * Reason Onset Date Comments Prior Authorization 08/07/2023 Encounter Details Date Type Department Care Team Description 08/07/2023 Telephone Adult Medicine [address] [phone] Karin Clemente MD [address] [place] [address] [phone] Prior Authorization Social History Tobacco Use Types [...] encounter Miscellaneous Notes * Telephone Encounter - Yariel Stock - 08/15/2023 11:59 AM EDT The patient called about this. She says she has never had to pay for this over the counter with herinsurance before. She says she tried calling her insurance to appeal this, but they would not help her. The patient would like a call from the prior auth department if possible. * Telephone Encounter - Margaret Russell M.A. - 08/07/2023 10:37 AM EDT Not covered Otc Margaret Russell Prior Auth Dep Ext [id number] * Telephone Encounter - Sully Jackson - 08/07/2023 9:47 AM EDT Prior Authorization for Medication-do not complete and send this encounter unless you have the fax from the pharmacy. Is this a Cover My Meds request: Yes -- [place] Code [id number] Name of Medication Lactobacillus-Inulin ([facility]) Cap Dose of Medication What is the RX # from the faxed refill? How does patient take this med? What Pharmacy did the fax come from: [facility] [place] [facility] fax #: [phone] Third Libertarian Information from fax: What Prescription Plan does the patient have? BIN/PCN if applicable: Cardholder ID: Person Code: Relationship Code: Help desk phone: documented in this encounter Plan of Treatment Not on file documented as of this encounter Visit Diagnoses Not on filedocumented in this encounter Care Teams Assistant Tennis Coach Relationship Specialty Start Date End Date Karin Clemente MD [address] [place] [address] PCP - General Internal Medicine 11/08/21 Amy Block DNP [address] [place] [address] [phone] Specialist Nurse Practitioner Family 10/11/23 Carlee Marcelo MD [address] [place] [address] Specialist Cardiology 10/11/23 documented as of this encounter
--- OUTSIDE RECORDS SUMMARY | 2024-11-30 20:39 | XMS_ITS | Encounter Summary ---
Author Organization [facility] Address [address] [place] [address] Care Team Providers Care Food And Beverage Operations Manager Name Role Phone Chuck Cervantes MD Primary Care Provider Unavailab Erika Herrera MD Primary Care Provider [phone] Hollie Nicholas MD Primary Care Provider Karin Vyas MD Primary Care Provider [phone] Amy Block DNP Unavailable [phone] Carlee Marcelo MD Unavailable [phone] Reason for Visit * Reason Onset Date Comments Faxed Order 09/06/2020 Encounter Details Date Type Department Care Team Description 09/06/2020 Telephone Adult [address] [phone] Chuck Cervantes MD Faxed Order Social History [...] review, sign, date, and fax back to [phone]. * Telephone Encounter - Mel Reyna - 09/06/2020 2:40 PM EDT [facility] IS FAXING ORDERS TO BE SIGN AND FAX BACK TO [phone]. documented in this encounter Plan of Treatment Not on file documented as of this encounter Visit Diagnoses Not on filedocumented in this encounter Care Teams Food And Beverage Operations Manager Relationship Specialty Start Date End Date Chuck Cervantes MD PCP - General Internal Medicine 08/20/20 11/22/20 Erika Burciaga MD [address] [place] [address] PCP - General Internal Medicine 11/23/20 03/28/21 Hollie Nicholas MD [address] [place] [address] PCP - General Internal Medicine 03/29/21 11/07/21 Karin Clemente MD [address] [place] [address] PCP - General Internal Medicine 11/08/21 Amy Block DNP [address] [place] [address] Specialist Nurse Practitioner Family 10/11/23 Carlee Marcelo MD [address] [place] [address] Specialist Cardiology 10/11/23 documented as of this encounter
--- OUTSIDE RECORDS SUMMARY | 2024-11-30 20:39 | XMS_ITS | Encounter Summary ---
Author Organization [facility] Address [address] [place] [address] Care Team Providers Care Director Of Reimbursement Name Role Phone Rae Boss DO Primary Care Pro vider Unavailable Chuck Cervantes MD Primary Care Provider Unavailab Erika Herrera MD Primary Care Provider [phone] Hollie Nicholas MD Primary Care Provider Karin Vyas MD Primary Care Provider [phone] Amy Block DNP Unavailable [phone] Carlee Marcelo MD Unavailable [phone] Reason for Visit * Reason Onset Date Comments hospital follow up 09/05/2018 Patient needs to be rescheduled Encounter Details Date Type Department Care Team Description 09/05/2018 Telephone Gastroenterology - [address] [place] [address] Kelsey Azul MD hospital follow [...] in this encounter Care Teams Director Of Reimbursement Relationship Specialty Start Date End Date Rae Boss DO PCP - General Internal Medicine 11/20/14 08/19/20 Chuck Cervantes MD PCP - General Internal Medicine 08/20/20 11/22/20 Erika Burciaga MD [address] [place] [address] PCP - General Internal Medicine 11/23/20 03/28/21 Hollie Nicholas MD [address] [place] [address]146 PCP - General Internal Medicine 03/29/21 11/07/21 Karin Clemente MD [address] [place] [address] PCP - General Internal Medicine 11/08/21 Amy Block DNP [address] [place] [address]25 Specialist Nurse Practitioner Family 10/11/23 Carlee Marcelo MD [address] [place] [address] Specialist Cardiology 10/11/23 documented as of this encounter
--- OUTSIDE RECORDS SUMMARY | 2024-11-30 20:39 | XMS_ITS | Encounter Summary ---
Author Organization [facility] Address [address] [place] [address] Care Team Providers Care System Operator Name Role Phone Rae Boss DO Primary Care Pro vider Unavailable Chuck Cervantes MD Primary Care Provider Unavailab Erika Herrera MD Primary Care Provider [phone] Hollie Nicholas MD Primary Care Provider Karin Vyas MD Primary Care Provider [phone] Amy Block DNP Unavailable [phone] Carlee Marcelo MD Unavailable [phone] Reason for Visit * Reason Onset Date Comments refill request 04/13/2020 Encounter Details Date Type Department Care Team Description 04/13/2020 Refill Adult Medicine [address] [phone] Rae Boss DO refill request Social History [...] Telephone Encounter - Sachi Wright M.A. - 04/13/2020 11:22 AM EST Lab Results Component Value Date NA 136 03/08/2019 K 4.2 03/08/2019 CO2 29 03/08/2019 CL 102 03/08/2019 BUN 9 03/08/2019 CREAT 0.90 03/08/2019 GLU 83 03/08/2019 CA 9.6 03/08/2019 GFR > 60 03/08/2019 Pending appt with pcp 06/2020 * Telephone Encounter - Travis Conde - 04/13/2020 10:28 AM EST Patient would like script to be: E-PRESCRIBED/FAXED TO PHARMACY WHEN WAS THE PATIENT'S LAST APPOINTMENT IN ADULT MEDICINE? 03/18/20 WHEN WAS THE LAST TIME THE PATIENT SAW THEIR PCP? Hasn't seen pcp Does patient have an upcoming appointment? Yes 06/24/20 (THE MEDICATION REQUESTED IS ON THE MED [...] N/A Patients current insurance carrier is: Payor: [employer] FFS / Plan: [employer] [place] / Product Type: MEDICAID RISK documented in this encounter Plan of Treatment Not on file documented as of this encounter Visit Diagnoses Not on filedocumented in this encounter Care Teams System Operator Relationship Specialty Start Date End Date aRe Boss DO PCP - General Internal Medicine 11/20/14 08/19/20 Chuck Cervantes MD PCP - General Internal Medicine 08/20/20 11/22/20 Erika Burciaga MD [address] [place] [address] 28484 PCP - General Internal Medicine 11/23/20 03/28/21 Hollie Nicholas MD [address] [place], [place] [phone] PCP - General Internal Medicine 03/29/21 11/07/21 Karin Clemente MD [address] [place] [address] PCP - General Internal Medicine 11/08/21 Amy Block DNP [address] [place] [address] 64079 Specialist Nurse Practitioner Family 10/11/23 Carlee Marcelo MD [address] [place] [address]80 Specialist Cardiology 10/11/23 documented as of this encounter
--- OUTSIDE RECORDS SUMMARY | 2024-11-30 20:39 | XMS_ITS | Encounter Summary ---
Author Organization [facility] Address [address] [place] [address] Care Team Providers Care Drier Operator Helper Name Role Phone Karin Clemente MD Primary Care Provider [phone] Amy Block DNP Unavailable [phone] Carlee Marcelo MD Unavailable [phone] Encounter Details Date Type Department Care Team Description 05/25/2022 Refill Adult Medicine [address] [phone] Karin Clemente MD [address] [place] [address] [phone] Social History Tobacco Use Types Packs/Day Years [...] suspected to have Coronavirus/COVID-19? No / Unsure 05/12/2022 2:56 PM EST documented as of this encounter Plan of Treatment Not on file documented as of this encounter Visit Diagnoses Not on filedocumented in this encounter Care Teams Drier Operator Helper Relationship Specialty Start Date End Date Karin Clemente MD [address] [place] [address]1988 PCP - General Internal Medicine 11/08/21 Amy Block DNP [address] [place] [address] 20907 Specialist Nurse Practitioner Family 10/11/23 Carlee Marcelo MD [address] [place] [address] 95935 Specialist Cardiology 10/11/23 documented as of this encounter
--- OUTSIDE RECORDS SUMMARY | 2024-11-30 20:39 | XMS_ITS | Encounter Summary ---
Author Organization [facility] Address [address] [place] [address] Care Team Providers Care Mediator Name Role Phone Rae Boss DO Primary Care Pro vider Unavailable Chuck Cervantes MD Primary Care Provider Unavailab Erika Herrera MD Primary Care Provider [phone] Hollie Nicholas MD Primary Care Provider Karin Vyas MD Primary Care Provider [phone] Amy Block DNP Unavailable [phone] Carlee Marcelo MD Unavailable [phone] Encounter Details Date Type Department Care Team Description 05/14/2016 Night Triage Doc Medical Records [address] [place] [address] Abstract, Provider Social History Tobacco Use Types [...] on filedocumented in this encounter Care Teams Mediator Relationship Specialty Start Date End Date Rae Boss DO PCP - General Internal Medicine 11/20/14 08/19/20 Chuck Cervantes MD PCP - General Internal Medicine 08/20/20 11/22/20 Erika Burciaga MD [address] [place] [address] PCP - General Internal Medicine 11/23/20 03/28/21 Hollie Nicholas MD [address] [place] [address] PCP - General Internal Medicine 03/29/21 11/07/21 Karin Clemente MD [address] [place], [place] [phone] PCP - General Internal Medicine 11/08/21 Amy Block DNP [address] [place] [address]32 Specialist Nurse Practitioner Family 10/11/23 Carlee Marcelo MD [address] [place] [address]20 Specialist Cardiology 10/11/23 documented as of this encounter
--- OUTSIDE RECORDS SUMMARY | 2024-11-30 20:39 | XMS_ITS | Encounter Summary ---
Author Organization [facility] Address [address] [place] [address] Care Team Providers Care Oracle Security Consultant Name Role Phone Rae Boss DO Primary Care Pro vider Unavailable Chuck Cervantes MD Primary Care Provider Unavailab Erika Herrera MD Primary Care Provider [phone] Hollie Nicholas MD Primary Care Provider Karin Vyas MD Primary Care Provider [phone] Amy Block DNP Unavailable [phone] Carlee Marcelo MD Unavailable [phone] Encounter Details Date Type Department Care Team Description 11/07/2018 Orders Only OBGYN - [place] [address] [place] [address] [phone] de Ronald Reyna MD [address] [place] [address] , unspecified gestational age (Primary Dx) Social History Tobacco Use Types [...] documented as of this encounter Results * HCG/ (BLOOD) QUANTITATIVE (11/09/2018 12:38 PM EDT) Pathologist [facility] TOTAL BETA HCG, QUANTITATIVE 5363 mIU/mL 11/09/2018 5:19 PM EDT [facility] Comment: Quantitative HCG Reference Ranges Time after Conception MIU/ML 0.2-1 Week 5-50 1-2 Weeks 50-500 2-3 Weeks 100-5,000 3-4 Weeks 500-10,000 4-5 Weeks 1,000-50,000 5-6 Weeks 10,000-100,000 6-8 Weeks 15,000-200,000 2-3 Months 10,000-100,000 2nd Trimester 1,000-94,000 3rd Trimester 2,500-90,000 Non- Females 1-3 11/09/2018 12:3 8 PM EDT 11/09/2018 12:38 PM EDT Ronald Conway MD [facility] documented in this encounter Visit Diagnoses Diagnosis , unspecified gestational age- Primary documented in this encounter Care Teams Oracle Security Consultant Relationship Specialty Start Date End Date Rae Boss DO PCP - General Internal Medicine 11/20/14 08/19/20 Chuck Cervantes MD PCP - General Internal Medicine 08/20/20 11/22/20 Erika Burciaga MD [address] [place] [address]853 PCP - General Internal Medicine 11/23/20 03/28/21 Hollie Nicholas MD [address] [place] [address] 47915 PCP - General Internal Medicine 03/29/21 11/07/21 Karin Clemente MD [address] [place] [address] PCP - General Internal Medicine 11/08/21 Amy Block DNP [address] [place] [address] 32070 Specialist Nurse Practitioner Family 10/11/23 Carlee Marcelo MD [address] [place] [address]56 Specialist Cardiology 10/11/23 documented as of this encounter
--- OUTSIDE RECORDS SUMMARY | 2024-11-30 20:39 | XMS_ITS | Encounter Summary ---
Author Organization [facility] Address [address] [place] [address] Care Team Providers Care Tariff Inspector Name Role Phone Rae Boss DO Primary Care Pro vider Unavailable Chuck Cervantes MD Primary Care Provider Unavailab Erika Herrera MD Primary Care Provider [phone] Hollie Nicholas MD Primary Care Provider Karin Vyas MD Primary Care Provider [phone] Amy Block DNP Unavailable [phone] Carlee Marcelo MD Unavailable Reason for Visit * Reason Onset Date Comments 10/31/2018 er follow up 10/31/2018 Encounter Details Date Type Department Care Team Description 10/31/2018 Telephone [facility] - [place] [address] [place], [place] [phone] Archana Ochoa CNM [address] [place] [address] ; er follow up Social History Tobacco Use [...] encounter Miscellaneous Notes * Telephone Encounter - JESS Smith, RN - 10/31/2018 11:09 AM EDT Faxed request for records for todays appt * Telephone Encounter - Michelle Chase - 10/31/2018 11:01 AM EDT Pt has appt today with Archana but was seen at [facility] last night 10/30/18 for bleeding and cramping is concerned about how many weeks along she is. documented in this encounter Plan of Treatment Not on file documented as of this encounter Visit Diagnoses Not on filedocumented in this encounter Care Teams Tariff Inspector Relationship Specialty Start Date End Date Rae Boss DO PCP - General Internal Medicine 11/20/14 08/19/20 Chuck Cervantes MD PCP - General Internal Medicine 08/20/20 11/22/20 Erika Burciaga MD [address] [place] [address] [phone] PCP - General Internal Medicine 11/23/20 03/28/21 Hollie Nicholas MD [address] [place] [address] PCP - General Internal Medicine 03/29/21 11/07/21 Karin Clemente MD [address] [place] [address] [phone] PCP - General Internal Medicine 11/08/21 Amy Block DNP [address] [place] [address] Specialist Nurse Practitioner [facility] 10/11/23 Carlee Marcelo MD [address] [place] [address]20 Specialist Cardiology 10/11/23 documented as of this encounter
--- OUTSIDE RECORDS SUMMARY | 2024-11-30 20:39 | XMS_ITS | Encounter Summary ---
Author Organization [facility] Address [address] [place] [address] Care Team Providers Care Celery Stripper Name Role Phone Rae Boss DO Primary Care Pro vider Unavailable Chuck Cervantes MD Primary Care Provider Unavailab Erika Herrera MD Primary Care Provider [phone] Hollie Nicholas MD Primary Care Provider Karin Vyas MD Primary Care Provider [phone] Amy Block DNP Unavailable [phone] Carlee Marcelo MD Unavailable [phone] Encounter Details Date Type Department Care Team Description 04/08/2016 Night Triage Doc Medical Records [address] [place] [address] Abstract, Provider Social History Tobacco Use Types [...] on filedocumented in this encounter Care Teams Celery Stripper Relationship Specialty Start Date End Date Rae Boss DO PCP - General Internal Medicine 11/20/14 08/19/20 Chuck Cervantes MD PCP - General Internal Medicine 08/20/20 11/22/20 Erika Burciaga MD [address] [place] [address] PCP - General Internal Medicine 11/23/20 03/28/21 Hollie Nicholas MD [address] [place] [address] PCP - General Internal Medicine 03/29/21 11/07/21 Karin Clemente MD [address] [place], [place] [phone] PCP - General Internal Medicine 11/08/21 Amy Block DNP [address] [place] [address] Specialist Nurse Practitioner Family 10/11/23 Carlee Marcelo MD [address] [place] [address] Specialist Cardiology 10/11/23 documented as of this encounter
--- OUTSIDE RECORDS SUMMARY | 2024-11-30 20:39 | XMS_ITS | Encounter Summary ---
Author Organization [facility] Address [address] [place] [address] Care Team Providers Care Printer'S Assistant Name Role Phone Rae Boss DO Primary Care Pro vider Unavailable Chuck Cervantes MD Primary Care Provider Unavailab Erika Herrera MD Primary Care Provider [phone] Hollie Nicholas MD Primary Care Provider Karin Vyas MD Primary Care Provider [phone] mAy Block DNP Unavailable [phone] Carlee Marcelo MD Unavailable [phone] Encounter Details Date Type Department Care Team Description 01/06/2017 Transfer Records Medical Records [address] [place] [address] Abstract, Provider Social History Tobacco Use Types [...] on filedocumented in this encounter Care Teams Printer'S Assistant Relationship Specialty Start Date End Date Rae Boss DO PCP - General Internal Medicine 11/20/14 08/19/20 Chuck Cervantes MD PCP - General Internal Medicine 08/20/20 11/22/20 Erika Burciaga MD [address] [place] [address] PCP - General Internal Medicine 11/23/20 03/28/21 Hollie Nicholas MD [address] [place], [place] [phone] PCP - General Internal Medicine 03/29/21 11/07/21 Karin Clemente MD [address] [place] [address] PCP - General Internal Medicine 11/08/21 Amy Block DNP [address] [place] [address] Specialist Nurse Practitioner Family 10/11/23 Carlee Marcelo MD [address] [place] [address] Specialist Cardiology 10/11/23 documented as of this encounter
--- OUTSIDE RECORDS SUMMARY | 2024-11-30 20:39 | XMS_ITS | Encounter Summary ---
Author Organization [facility] Address [address] [place] [address] Care Team Providers Care Natural Science Curator Name Role Phone Rae Boss DO Primary Care Pro vider Unavailable Chuck Cervantes MD Primary Care Provider Unavailab Erika Herrera MD Primary Care Provider [phone] Hlolie Nicholas MD Primary Care Provider Karin Vyas MD Primary Care Provider [phone] Amy Block DNP Unavailable [phone] Carlee Marcelo MD Unavailable [phone] Encounter Details Date Type Department Care Team Description 09/27/2018 Telephone [facility] - [address] [id number] Kelsey Auzl MD Social History Tobacco Use Types Packs/Day [...] encounter Miscellaneous Notes * Telephone Encounter - Mary Cunningham - 09/27/2018 11:36 AM EDT Krsytal Deforge cancelled and no showed 5 times then the refferal ran out and was denied; thereforewe are removing the test from our Scheduled Orders Report. Please note that this test must be reordered if required in the future. documented in this encounter Plan of Treatment Not on file documented as of this encounter Visit Diagnoses Not on filedocumented in this encounter Care Teams Natural Science Curator Relationship Specialty Start Date End Date Rae Boss DO PCP - General Internal Medicine 11/20/14 08/19/20 Chuck Cervantes MD PCP - General Internal Medicine 08/20/20 11/22/20 Erika Burciaga MD [address] [place] [address] PCP - General Internal Medicine 11/23/20 03/28/21 Hollie Nicholas MD [address] [place], [place] [phone] PCP - General Internal Medicine 03/29/21 11/07/21 Karin Clemente MD [address] [place], [place] [id number] PCP - General Internal Medicine 11/08/21 Amy Block DNP [address] [place] [address] Specialist Nurse Practitioner Family 10/11/23 Carlee Marcelo MD [address] [place] [address] Specialist Cardiology 10/11/23 documented as of this encounter
--- OUTSIDE RECORDS SUMMARY | 2024-11-30 20:39 | XMS_ITS | Encounter Summary ---
Author Organization [facility] Address [address] [place] [address] Care Team Providers Care Ibm Mainframe Systems Programmer Name Role Phone Rae Boss DO Primary Care Pro vider Unavailable Chuck Cervantes MD Primary Care Provider Unavailab Erika Herrera MD Primary Care Provider [phone] Hollie Nicholas MD Primary Care Provider Karin Vyas MD Primary Care Provider [phone] Amy Block DNP Unavailable [phone] Carlee Marcelo MD Unavailable [phone] Encounter Details Date Type Department Care Team Description 07/27/2020 Vp Account Director Report Medical Records [address] [place] [address] Deovn Jackson MD Social History Tobacco Use Types Packs/Day [...] on filedocumented in this encounter Care Teams Ibm Mainframe Systems Programmer Relationship Specialty Start Date End Date Rae Boss DO PCP - General Internal Medicine 11/20/14 08/19/20 Chuck Cervantes MD PCP - General Internal Medicine 08/20/20 11/22/20 Erika Burciaga MD [address] [place] [address] PCP - General Internal Medicine 11/23/20 03/28/21 Hollie Nicholas MD [address] [place] [address] PCP - General Internal Medicine 03/29/21 11/07/21 Karin Clemente MD [address] [place] [address] PCP - General Internal Medicine 11/08/21 Amy Block DNP [address] [place] [address] Specialist Nurse Practitioner Family 10/11/23 Carlee Marcelo MD [address] [place] [address] Specialist Cardiology 10/11/23 documented as of this encounter
--- OUTSIDE RECORDS SUMMARY | 2024-11-30 20:39 | XMS_ITS | Encounter Summary ---
Author Organization [facility] Address [address] [place] [address] Care Team Providers Care Sales Support Consultant Name Role Phone Karin Clemente MD Primary Care Provider [phone] Amy Block DNP Unavailable [phone] Carlee Marcelo MD Unavailable [phone] Encounter Details Date Type Department Care Team Description 06/13/2022 Pt. Non Urgent Medical Question Adult Medicine [address] [phone] Karin Clemente MD [address] [place] [address] [id number] Social History Tobacco Use Types Packs/Day Years [...] filedocumented in this encounter Care Teams Sales Support Consultant Relationship Specialty Start Date End Date Karin Clemente MD [address] [place] [address] PCP - General Internal Medicine 11/08/21 Amy Block DNP [address] [place] [address] Specialist Nurse Practitioner Family 10/11/23 Carlee Marcelo MD [address] [place] [address] Specialist Cardiology 10/11/23 documented as of this encounter
--- OUTSIDE RECORDS SUMMARY | 2024-11-30 20:39 | XMS_ITS | Encounter Summary ---
Author Organization [facility] Address [address] [place] [address] Care Team Providers Care Sane Nurse Name Role Phone Rae Boss DO Primary Care Pro vider Unavailable Chuck Cervantes MD Primary Care Provider Unavailab Erika Herrera MD Primary Care Provider [phone] Hollie Nicholas MD Primary Care Provider Karin Vyas MD Primary Care Provider [phone] Amy Block DNP Unavailable [phone] Carlee Marcelo MD Unavailable [phone] Reason for Visit * Reason Comments E-prescribe Rx Request Encounter Details Date Type Department Care Team Description 03/29/2017 Refill [address]erm[address] [phone] Sophia Ferrera PA-C E-prescribe Rx Request Social [...] on filedocumented in this encounter Care Teams Sane Nurse Relationship Specialty Start Date End Date Rae Boss DO PCP - General Internal Medicine 11/20/14 08/19/20 Chuck Cervantes MD PCP - General Internal Medicine 08/20/20 11/22/20 Erika Burciaga MD [address] [place] [address] PCP - General Internal Medicine 11/23/20 03/28/21 Hollie Nicholas MD [address] [place] [address] PCP - General Internal Medicine 03/29/21 11/07/21 Karin Clemente MD [address] [place] [address] PCP - General Internal Medicine 11/08/21 Amy Block DNP [address] [place] [address] Specialist Nurse Practitioner Family 10/11/23 Carlee Marcelo MD [address] [place] [address] Specialist Cardiology 10/11/23 documented as of this encounter
--- OUTSIDE RECORDS SUMMARY | 2024-11-30 20:39 | XMS_ITS | Encounter Summary ---
Author Organization [facility] Address [address] [place] [address] Care Team Providers Care Explosive Ordnance Manager Name Role Phone Rae Boss DO Primary Care Pro vider Unavailable Chuck Cervantes MD Primary Care Provider Unavailab Erika Herrera MD Primary Care Provider [phone] Hollie Nicholas MD Primary Care Provider Karin Vyas MD Primary Care Provider [phone] Amy Block DNP Unavailable [phone] Carlee Marcelo MD Unavailable [phone] Reason for Visit * Reason Onset Date Comments Arm Pain 06/04/2020 Encounter Details Date Type Department Care Team Description 06/04/2020 Telephone Adult [address] [phone] Rae Boss DO Arm Pain Social History Tobacco Use Types Packs/Day Years [...] Telephone Encounter - Liliana José R.N. - 06/09/2020 3:51 PM EST I left a message for the patient to return my call. * Telephone Encounter - Rae [place] DO - 06/09/2020 3:26 PM EST If she is having all the symptoms that she listed to you then she does need to be seen acutely in the emergency room. If she does not admit that only has muscle aches and pains in her arm and she canbe booked for an office visit with available provider. * Telephone Encounter - Liliana José R.N. - 06/04/2020 2:11 PM EST Pt has left arm aching pain since Monday . She also had chest heaviness last night for about an hour ( she knows it is not her heart because she had that checked last year ) also had a severe headache with visual changes ( lightning bolts through her visual field ) but she knows that is okay because she has headaches all the time , vomited ( due to the intense headache ) and had a cat bite 2 weeks ago in her left hand Pt has no chest pain now, she is asymptomatic completley except for the aching pain in her left arm, has pain in the muscles from the upper arm into the forearm, no joint pains, arms is not hot or red or swollen , no redness or swelling at the site of the cat bite, she has no N/V/D or fever now, she has no headache , denies any swelling in axilla Pt has these complaints which when read back to her she admits are all accurate , due to the chest heaviness , continued arm pain, severe headache with visual disturbance and vomiting I advised pt milli to the ed , she refuses , feels I am upsetting her by over reacting and she is fine , wants to be seen only for the arm pain. Feels all other symptoms are not significant Pt asking for advice from dr Rae Gay * Telephone Encounter - Ana Means - 06/04/2020 2:02 PM EST Symptoms patient is presenting: pt has been experiencing an achey pain in her left arm since Monday. She can still move it and do things it just is bothering her. Pt reports no falls but she recallshitting her elbow - can't remember if it is the same arm. Had a cat bite leave a deep cut on her left hand last week as well. Not sure what is causing this ache but would like a nurse to call back For ALL patients calling to schedule any appointment (routine, sick visit, follow up, consult, etc.) in the outpatient setting please ask the following questions: ?? Do you have fever of higher than 101, sore throat with difficulty swallowing or severe shortnessof breath? NO If YES to any of these above symptoms, send a message to triage and do not book. Red dot. If no, an audio or video visit should be booked. ?? Have you had close contact with someone with Coronavirus in the last 14 days? NO ?? Have you traveled abroad? NO ?? Have you traveled recently to another state outside of [place], [place], [place], [place], [place], [place], [place]? NO o If yes, did you quarantine for 14 days or have a negative covid test? NO If yes to any of the above, patient is not to be scheduled in office until after 14 day quarantine or negative covid test. If pain or injury related was it due to an accident at work or from a motor vehicle accident? NO If yes, gather 3rd alliance party insurance information Date of accident/Injury: How long has patient had these symptoms?: PCP: Rae Gay Payor: [employer] FFS / Plan: [employer] / Product Type: MEDICAID RISK documented in this encounter Plan of Treatment Not on file documented as of this encounter Visit Diagnoses Not on filedocumented in this encounter Care Teams Explosive Ordnance Manager Relationship Specialty Start Date End Date Rae Boss DO PCP - General Internal Medicine 11/20/14 08/19/20 Chuck Cervantes MD PCP - General Internal Medicine 08/20/20 11/22/20 Erika Burciaga MD [address] [place] [address] PCP - General Internal Medicine 11/23/20 03/28/21 Hollie Nicholas MD [address] [place] [address] PCP - General Internal Medicine 03/29/21 11/07/21 Karin Clemente MD [address] [place] [address] PCP - General Internal Medicine 11/08/21 Amy Block DNP [address] [place] [address] Specialist Nurse Practitioner Family 10/11/23 Carlee Marcelo MD [address] [place] [address] Specialist Cardiology 10/11/23 documented as of this encounter
--- OUTSIDE RECORDS SUMMARY | 2024-11-30 20:39 | XMS_ITS | Encounter Summary ---
Author Organization [facility] Address [address] [place] [address] Care Team Providers Care Restaurant Inspector Name Role Phone Rae Boss DO Primary Care Pro vider Unavailable Chuck Cervantes MD Primary Care Provider Unavailab Erika Herrera MD Primary Care Provider [phone] Hollie Nicholas MD Primary Care Provider Karin Vyas MD Primary Care Provider [phone] Amy Block DNP Unavailable [phone] Carlee Marcelo MD Unavailable [phone] Encounter Details Date Type Department Care Team Description 11/25/2016 Inspecting Supervisor Report Medical Records [address] [place] [address] [facility] Social History Tobacco Use Types Packs/Day [...] on filedocumented in this encounter Care Teams Restaurant Inspector Relationship Specialty Start Date End Date Rae Boss DO PCP - General Internal Medicine 11/20/14 08/19/20 Chuck Cervantes MD PCP - General Internal Medicine 08/20/20 11/22/20 Erika Burciaga MD [address] [place] [address] PCP - General Internal Medicine 11/23/20 03/28/21 Hollie Nicholas MD [address] [place] [address] PCP - General Internal Medicine 03/29/21 11/07/21 Karin Clemente MD [address] [place] [address] PCP - General Internal Medicine 11/08/21 Amy Block DNP [address] [place] [address] Specialist Nurse Practitioner Family 10/11/23 Carlee Marcelo MD [address] [place] [address] Specialist Cardiology 10/11/23 documented as of this encounter
--- OUTSIDE RECORDS SUMMARY | 2024-11-30 20:39 | XMS_ITS | Encounter Summary ---
Author Organization [facility] Address [address] [place] [address] Care Team Providers Care Economic Specialist Name Role Phone Judy Bearden MD Primary Care Provider Unava ilable Yari Myers Primary Care Provider Unavailabl e Judy Bearden MD Primary Care Provider Unava ilable Rae Boss DO Primary Care Pro vider Unavailable Chuck Cervantes MD Primary Care Provider Unavailab Erika Herrera MD Primary Care Provider [phone] Hollie Nicholas MD Primary Care Provider Unavai Karin Maldonado MD Primary Care Provider [phone] Amy Block DNP Unavailable [phone] Carlee Marcelo MD Unavailable [phone] Reason for Visit * Reason Onset Date Comments PT-1 03/10/2014 Encounter Details Date Type Department Care Team Description 03/10/2014 Telephone Adult Medicine [facility] [address] [place] [address] Judy Bearden MD PT-1 Social History Tobacco Use Types Packs/Day Years [...] encounter Miscellaneous Notes * Telephone Encounter - Yulissa Rowland M.A. - 03/12/2014 3:48 PM EST Spoke with patient. She states she was told by allergy office she needed to have a form done beforethey will book her an appointment. Dr. Talbot's office was contacted and they deny giving this information to patient. Patient was advised to call for an appointment and then call us back with this information. Left a message informing patient. * Telephone Encounter - Yulissa Rowland M.A. - 03/10/2014 4:44 PM EST Patient needs an appointment to complete request. * Telephone Encounter - Arabella Boles - 03/10/2014 9:29 AM EST Patients [place] [facility] Pt. demographics and [place] [employer] Ins information verified YES Is this a NEW request or a Renewal? new Mailing address: [address] [place] [address] Is the mailing address accurate? YES. If no, update all screens in Registration Has [employer] Insurance coverage been verified? YES Name (first & last) of treating provider Dr Zenon Talbot Reason the patient is seeing the above provider: allergies Address/zip for treating provider [address] [place] [address] Phone # of treating provider n/a What specialty is this provider? vision therapist How often they see them n/a visits per week, N/avisits per month How long will they require these services n/a weeks, every Months When is the visit scheduled? No appt yet Medical reason why they are unable to use public transportation: Patient Active Problem List Diagnosis Code ??? Kidney stones 592.0 ??? History of splenomegaly V12.3 ??? Anxiety 300.00 ??? OCD (obsessive compulsive disorder) 300.3 ??? Morbid obesity 278.01 ??? ADHD (attention deficit hyperactivity disorder) 314.01 ??? Dyshidrotic eczema 705.81 ??? Chronic headaches 784.0 ??? Asthma 493.90 ??? Anemia 285.9 ??? Tenosynovitis, de Quervain 727.04 ??? Hepatitis C antibody test positive 795.79 ??? Helicobacter pylori gastritis 041.86 Do they need a wheelchair van: NO Do they need an escort to accompany them? NO Will they have an alternative pick-up address? NO PT DOES NOT NEED RELEASE OF INFORMATION SIGNED documented in this encounter Plan of Treatment Not on file documented as of this encounter Visit Diagnoses Not on filedocumented in this encounter Care Teams Economic Specialist Relationship Specialty Start Date End Date Judy Bearden MD PCP - General Internal Medicine 12/17/13 05/22/14 Yari Myers PCP - General Family Practice 05/23/14 06/01/14 Judy Bearden MD PCP - General Internal Medicine 06/02/14 11/19/14 Rae Boss DO PCP - General Internal Medicine 11/20/14 08/19/20 Chuck Cervantes MD PCP - General Internal Medicine 08/20/20 11/22/20 Erika Burciaga MD [address] [place] [address] PCP - General Internal Medicine 11/23/20 03/28/21 Hollie Nicholas MD [address] [place] [address] PCP - General Internal Medicine 03/29/21 11/07/21 Karin Clemente MD [address] [place] [address], [place] [address] PCP - General Internal Medicine 11/08/21 Amy Block DNP [address] [place] [address] Specialist Nurse Practitioner Family 10/11/23 Carlee Marcelo MD [address] [place] [id number] Specialist Cardiology 10/11/23 documented as of this encounter
--- OUTSIDE RECORDS SUMMARY | 2024-11-30 20:39 | XMS_ITS | Encounter Summary ---
Author Organization [facility] Address [address] [place] [address] Care Team Providers Care Press Clippings Cutter And Paster Name Role Phone Rae Boss DO Primary Care Pro vider Unavailable Chuck Cervantes MD Primary Care Provider Unavailab Erika Herrera MD Primary Care Provider [phone] Hollie Nicholas MD Primary Care Provider Karin Vyas MD Primary Care Provider [phone] Amy Block DNP Unavailable [phone] Carlee Marcelo MD Unavailable [phone] Reason for Visit * Reason Comments E-prescribe Rx Request Encounter Details Date Type Department Care Team Description 08/30/2018 Refill OBGYN - [place] [address] [place], [place] [phone] Archana Ochoa CNM [address] [place] [address] E-prescribe Rx Request Social History [...] encounter Miscellaneous Notes * Telephone Encounter - Lizzy Velasquez M.A. - 08/30/2018 1:22 PM EDT Please review-[place] * Telephone Encounter - Michelle Chase - 08/30/2018 12:38 PM EDT WHEN WAS THE PATIENTS LAST ANNUAL MULTI PUNCH OPERATOR EXAM? 09/12/17 Does patient have an upcoming appointment? Yes 10/25/18 (THE MEDICATION REQUESTED IS ON THE MED LIST ABOVE) Did you check the Pharmacy information above?: YES Indicate how soon the patient needs the script: BY THE END OF THE DAY Patient would like script to be: E-PRESCRIBED/FAXED TO PHARMACY Is the doctor here today?: YES Can the message wait until the doctor returns?: NO Has the patient been told that the prescription will not be filled until the end of the day? NO Payor: [employer] FFS / Plan: [facility] / Product Type: MEDICAID RISK documented in this encounter Plan of Treatment Not on file documented as of this encounter Visit Diagnoses Not on filedocumented in this encounter Care Teams Press Clippings Cutter And Paster Relationship Specialty Start Date End Date Rae Boss DO PCP - General Internal Medicine 11/20/14 08/19/20 Chuck Cervantes MD PCP - General Internal Medicine 08/20/20 11/22/20 Erika Burciaga MD [address] [place] [address] PCP - General Internal Medicine 11/23/20 03/28/21 Hollie Nicholas MD [address] [place] [address] PCP - General Internal Medicine 03/29/21 11/07/21 Karin Clemente MD [address] [place] [address] PCP - General Internal Medicine 11/08/21 Amy Block DNP [address] [place] [address] Specialist Nurse Practitioner [facility] 10/11/23 Carlee Marcelo MD [address] [place] [address] Specialist Cardiology 10/11/23 documented as of this encounter
--- OUTSIDE RECORDS SUMMARY | 2024-11-30 20:39 | XMS_ITS | Encounter Summary ---
Author Organization [facility] Address [address] [place] [address] Care Team Providers Care Acting Manager Name Role Phone Rae Boss DO Primary Care Pro vider Unavailable Chuck Cervantes MD Primary Care Provider Unavailab Erika Herrera MD Primary Care Provider [phone] Hollie Nicholas MD Primary Care Provider Karin Vyas MD Primary Care Provider [phone] Amy Block DNP Unavailable [phone] Carlee Marcelo MD Unavailable [phone] Encounter Details Date Type Department Care Team Description 10/18/2016 Night Triage Doc Medical Records [address] [place] [address] Abstract, Provider Social History Tobacco Use Types [...] on filedocumented in this encounter Care Teams Acting Manager Relationship Specialty Start Date End Date Rae Boss DO PCP - General Internal Medicine 11/20/14 08/19/20 Chuck Cervantes MD PCP - General Internal Medicine 08/20/20 11/22/20 Erika Burciaga MD [address] [place] [address] PCP - General Internal Medicine 11/23/20 03/28/21 Hollie Nicholas MD [address] [place] [address] PCP - General Internal Medicine 03/29/21 11/07/21 Karin Clemente MD [address] [place], [place] [id number] PCP - General Internal Medicine 11/08/21 Amy Block DNP [address] [place] [address] Specialist Nurse Practitioner Family 10/11/23 Carlee Marcelo MD [address] [place] [address] Specialist Cardiology 10/11/23 documented as of this encounter
--- OUTSIDE RECORDS SUMMARY | 2024-11-30 20:39 | XMS_ITS | Encounter Summary ---
Author Organization [facility] Address [address] [place] [address] Care Team Providers Care Link Trainer Maintenance Worker Name Role Phone Rae Boss DO Primary Care Pro vider Unavailable Chuck Cervantes MD Primary Care Provider Unavailab Erika Herrera MD Primary Care Provider [phone] Hollie Nicholas MD Primary Care Provider Karin Vyas MD Primary Care Provider [phone] Amy Block DNP Unavailable [phone] Carlee Marcelo MD Unavailable [phone] Encounter Details Date Type Department Care Team Description 12/31/2016 Transfer Records Medical Records [address] [place] [address] Abstract, Provider Social History Tobacco Use Types [...] on filedocumented in this encounter Care Teams Link Trainer Maintenance Worker Relationship Specialty Start Date End Date Rae Boss DO PCP - General Internal Medicine 11/20/14 08/19/20 Chuck Cervantes MD PCP - General Internal Medicine 08/20/20 11/22/20 Erika Burciaga MD [address] [place] [address] PCP - General Internal Medicine 11/23/20 03/28/21 Hollie Nicholas MD [address] [place], [place] [id number] PCP - General Internal Medicine 03/29/21 11/07/21 Karin Clemente MD [address] [place] [address] PCP - General Internal Medicine 11/08/21 Amy Block DNP [address] [place] [address]694 Specialist Nurse Practitioner Family 10/11/23 Carlee Marcelo MD [address] [place] [address] Specialist Cardiology 10/11/23 documented as of this encounter
--- OUTSIDE RECORDS SUMMARY | 2024-11-30 20:39 | XMS_ITS | Encounter Summary ---
Author Organization [facility] Address [address] [place] [address] Care Team Providers Care Roll Shop Supervisor Name Role Phone Rae Boss DO Primary Care Pro vider Unavailable Chuck Cervantes MD Primary Care Provider Unavailab Erika Herrera MD Primary Care Provider [phone] Hollie Nicholas MD Primary Care Provider Karin Vyas MD Primary Care Provider [phone] Amy Block DNP Unavailable [phone] Carlee Marcelo MD Unavailable [phone] Encounter Details Date Type Department Care Team Description 10/05/2016 Finance Professional Report Medical Records [address] [place] [address] Shelly Kessler, ES Social History Tobacco Use Types Packs/Day [...] on filedocumented in this encounter Care Teams Roll Shop Supervisor Relationship Specialty Start Date End Date Rae Boss DO PCP - General Internal Medicine 11/20/14 08/19/20 Chuck Cervantes MD PCP - General Internal Medicine 08/20/20 11/22/20 Erika Burciaga MD [address] [place] [address] PCP - General Internal Medicine 11/23/20 03/28/21 Hollie Nicholas MD [address] [place] [address] PCP - General Internal Medicine 03/29/21 11/07/21 Karin Clemente MD [address] [place], [place] [phone] PCP - General Internal Medicine 11/08/21 Amy Block DNP [address] [place] [address] Specialist Nurse Practitioner Family 10/11/23 Carlee Marcelo MD [address] [place] [address] Specialist Cardiology 10/11/23 documented as of this encounter
--- OUTSIDE RECORDS SUMMARY | 2024-11-30 20:39 | XMS_ITS | Encounter Summary ---
Author Organization [facility] Address [address] [place] [address] Care Team Providers Care Rn Invasive Name Role Phone Rae Boss DO Primary Care Pro vider Unavailable Chuck Cervantes MD Primary Care Provider Unavailab Erika Herrera MD Primary Care Provider [phone] Hollie Nicholas MD Primary Care Provider Karin Vyas MD Primary Care Provider [phone] Amy Block DNP Unavailable [phone] Carlee Marcelo MD Unavailable [phone] Encounter Details Date Type Department Care Team Description 06/17/2020 SCAN Medical Records [address] [place] [address] Abstract, Provider Social History Tobacco Use Types [...] have Coronavirus / COVID-19? No / Unsure 06/10/2020 1:41 PM EST documented as of this encounter Plan of Treatment Not on file documented as of this encounter Procedures Procedure Name Priority Date/Time Associated Diagnosis Comments OUTSIDE EKG Routine 06/17/2020 OUTSIDE PLAIN FILM Routine 06/17/2020 documented in this encounter Results * OUTSIDE PLAIN FILM (06/17/2020) Provider Abstract RADIOLOGY * OUTSIDE EKG (06/17/2020) Provider Abstract CARDIOLOGY documented in this encounter Visit Diagnoses Not on filedocumented in this encounter Care Teams Rn Invasive Relationship Specialty Start Date End Date Rae Boss DO PCP - General Internal Medicine 11/20/14 08/19/20 Chuck Cervantes MD PCP - General Internal Medicine 08/20/20 11/22/20 Erika Burciaga MD [address] [place] [address] PCP - General Internal Medicine 11/23/20 03/28/21 Hollie Nicholas MD [address] [place] [address] PCP - General Internal Medicine 03/29/21 11/07/21 Karin Clemente MD [address] [place] [address] PCP - General Internal Medicine 11/08/21 Amy Block DNP [address] [place] [address]20 Specialist Nurse Practitioner Family 10/11/23 Carlee Marcelo MD [address] [place] [address] Specialist Cardiology 10/11/23 documented as of this encounter
--- OUTSIDE RECORDS SUMMARY | 2024-11-30 20:39 | XMS_ITS | Encounter Summary ---
Author Organization [facility] Address [address] [place] [address] Care Team Providers Care Opticianry Teacher Name Role Phone Rae Boss DO Primary Care Pro vider Unavailable Chuck Cervantes MD Primary Care Provider Unavailab Erika Herrera MD Primary Care Provider [phone] Hollie Nicholas MD Primary Care Provider Karin Vyas MD Primary Care Provider [phone] Amy Block DNP Unavailable [phone] Carlee Marcelo MD Unavailable [phone] Encounter Details Date Type Department Care Team Description 04/30/2016 [facility] Medical Records [address] [place] [address] Abstract, Provider Social History Tobacco Use Types [...] on filedocumented in this encounter Care Teams Opticianry Teacher Relationship Specialty Start Date End Date Rae Boss DO PCP - General Internal Medicine 11/20/14 08/19/20 Chuck Cervantes MD PCP - General Internal Medicine 08/20/20 11/22/20 Erika Burciaga MD [address] [place] [address] PCP - General Internal Medicine 11/23/20 03/28/21 Hollie Nicholas MD [address] [place] [address] PCP - General Internal Medicine 03/29/21 11/07/21 Karin Clemente MD [address] [place], [place] [phone] PCP - General Internal Medicine 11/08/21 Amy Block DNP [address] [place] [address] Specialist Nurse Practitioner Family 10/11/23 Carlee Marcelo MD [address] [place] [address] Specialist Cardiology 10/11/23 documented as of this encounter
--- OUTSIDE RECORDS SUMMARY | 2024-11-30 20:39 | XMS_ITS | Encounter Summary ---
Author Organization [facility] Address [address] [place] [address] Care Team Providers Care Mold Hoister Name Role Phone Karin Clemente MD Primary Care Provider [phone] Amy Block DNP Unavailable [phone] Carlee Marcelo MD Unavailable [phone] Reason for Referral * Non JASVIR (Routine) - Authorized/Booked Specialty Diagnoses / Procedures Referred By Janae lynch Referred To Contact Gastroenterology Procedures REFERRAL TO GASTROENTEROLOGY Karin Clemente MD [address] [place] [address] Gastro [place]/[address] [address] Referral ID Status Reason Start Date Expiration Date V isits Requested Visits Authorized [id number] Authorized/B ooked 10/26/2023 10/25/2024 1 1 Reason for Visit * Reason Onset Date Comments Provider Call Back 10/26/2023 Encounter Details Date Type Department Care Team Description 10/26/2023 Telephone Adult Medicine [address] [phone] Karin Clemente MD [address] [place] [address] [phone] Provider Call Back Social History Tobacco Use [...] encounter Miscellaneous Notes * Telephone Encounter - Nayely NgNLuis - 10/27/2023 8:37 AM EDT Message left for patient to return my call. * Telephone Encounter - Karin Clemente MD - 10/26/2023 5:09 PM EDT Ref placed * Telephone Encounter - Liliana José R.N. - 10/26/2023 11:39 AM EDT Pt is seen by [facility] . She is not happy there because she is not getting her results back and is very worried . She has called there many times and has not had anyone call her back. Spoke with ALEXANDRA , she cancelled the appointment which she was to get her results . She is booked for 11/21 and she was given the information to look at the portal to view her results, she was also reassured that the results , if critical would have been called to her right away The leasing manager at [facility] is aware and will be calling pt Pt still wants a new referral put in to [facility] for her chronic abd pain./ constipation and GERD, she is aware that will not be urgent and may be months away , she insists * Telephone Encounter - Mayo Kitty Majano - 10/26/2023 10:53 AM EDT Caller requesting call back from provider: Is the caller the patient? YES If caller is not the patient, what is the callers name? N/A Callers relationship to patient? N/A If person calling is not the patient themselves, is there a verbal release in FYI or permanent comments for this person: YES Reason for call back: Patient is calling stating that she is looking for results of where she was referred to for gastro patient states that they would not give her results. Patient states that she would like to be referred over to a different gastro. Please advise Caller offered to speak with the nurse for assistance: YES Response: Patient offered to speak with nurse for assistance and patient agreed. Message forwarded to nurse. documented in this encounter Plan of Treatment Not on file documented as of this encounter Visit Diagnoses Not on filedocumented in this encounter Care Teams Mold Hoister Relationship Specialty Start Date End Date Karin Clemente MD [address] [place] [address] PCP - General Internal Medicine 11/08/21 Amy Block DNP [address] [place] [address] Specialist Nurse Practitioner Family 10/11/23 Carlee Marcelo MD [address] [place] [address] Specialist Cardiology 10/11/23 documented as of this encounter
--- OUTSIDE RECORDS SUMMARY | 2024-11-30 20:39 | XMS_ITS | Encounter Summary ---
Author Organization [facility] Address [address] [place] [address] Care Team Providers Care Parts Salesperson Name Role Phone Rae Boss DO Primary Care Pro vider Unavailable Chuck Cervantes MD Primary Care Provider Unavailab Erika Herrera MD Primary Care Provider [phone] Hollie Nicholas MD Primary Care Provider Karin Vyas MD Primary Care Provider [phone] Amy Block DNP Unavailable [phone] Carlee Marcelo MD Unavailable [phone] Reason for Visit * Reason Comments E-prescribe Rx Request Encounter Details Date Type Department Care Team Description 10/06/2018 Refill GI PHYSICIAN - [place] [address] [place] [address] Archana Ochoa CNM [address] [place] [address] E-prescribe Rx Request Social History [...] EDT WHEN WAS THE PATIENTS LAST ANNUAL EQUITY SALES ASSISTANT EXAM?09/12/17 Does patient have an upcoming appointment? [...] the end of the day? NO Payor: [employer] FFS / Plan: [employer] [facility] / Product Type: MEDICAID RISK documented in this encounter Plan of Treatment Not on file documented as of this encounter Visit Diagnoses Not on filedocumented in this encounter Care Teams Parts Salesperson Relationship Specialty Start Date End Date Rae Boss DO PCP - General Internal Medicine 11/20/14 08/19/20 Chuck Cervantes MD PCP - General Internal Medicine 08/20/20 11/22/20 Erika Burciaga MD [address] [place] [address] PCP - General Internal Medicine 11/23/20 03/28/21 Hollie Nicholas MD [address] [place] [address] PCP - General Internal Medicine 03/29/21 11/07/21 Karin Clemente MD [address] [place] [address] PCP - General Internal Medicine 11/08/21 Amy Block DNP [address] [place] [address]161 Specialist Nurse Practitioner Family 10/11/23 Carlee Marcelo MD [address] [place] [address]12 Specialist Cardiology 10/11/23 documented as of this encounter
--- OUTSIDE RECORDS SUMMARY | 2024-11-30 20:39 | XMS_ITS | Encounter Summary ---
Author Organization [facility] Address [address] [place] [address] Care Team Providers Care Teacher Assistant Name Role Phone Karin Clemente MD Primary Care Provider [phone] Amy Block DNP Unavailable [phone] Carlee Marcelo MD Unavailable [phone] Reason for Visit * Reason Onset Date Comments REFERRAL 12/15/2023 Encounter Details Date Type Department Care Team Description 12/15/2023 Telephone Pulmonology - [place] [address] [facility] [address] [place] [address] Shelly Ruiz APRN [address] [facility] [address] [place] [address] REFERRAL Social History Tobacco Use Types Packs/Day [...] encounter Miscellaneous Notes * Telephone Encounter - Jeri White - 12/19/2023 1:44 PM EDT [facility] [address] [place] [address] * Telephone Encounter - Shelly Ruiz APRN - 12/17/2023 11:05 AM EDT Find out from patient name of the practice I need to get referal in [facility]. * Telephone Encounter - Jeri White - 12/15/2023 10:55 AM EDT [address] a referral for an rafter cutting machine operator florence stated they are located at [facility] and there is no referral placed * Telephone Encounter - Karly Olvera - 12/15/2023 10:38 AM EDT Patient is calling because provider referred her to rafter cutting machine operator. The office she was first referred too closed down and she was able to get another office but they need the referral and last office notes to be faxed . She has an appt on Please advice documented in this encounter Plan of Treatment Not on file documented as of this encounter Visit Diagnoses Not on filedocumented in this encounter Care Teams Teacher Assistant Relationship Specialty Start Date End Date Karin Clemente MD [address] [place] [address] PCP - General Internal Medicine 11/08/21 Amy Block DNP [address] [place] [address]81 Specialist Nurse Practitioner Family 10/11/23 Carlee Marcelo MD [address] [place] [address] Specialist Cardiology 10/11/23 documented as of this encounter
--- OUTSIDE RECORDS SUMMARY | 2024-11-30 20:39 | XMS_ITS | Encounter Summary ---
Author Organization [facility] Address [address] [place] [address] Care Team Providers Care Roll Over Loader Name Role Phone Karin Clemente MD Primary Care Provider [phone] Amy Block DNP Unavailable [phone] Carlee Marcelo MD Unavailable [phone] Encounter Details Date Type Department Care Team Description 05/11/2023 Orders Only Medical Records [address] [place] [address] [facility] Social History Tobacco Use Types Packs/Day [...] OUTSIDE LAB (05/05/2023) Narrative Authorizing Provider Result [facility] * OUTSIDE EKG (05/05/2023) Narrative Authorizing Provider Result [facility] documented in this encounter Visit Diagnoses Not on filedocumented in this encounter Care Teams Roll Over Loader Relationship Specialty Start Date End Date Karin Clemente MD [address] [place] [address] [phone] PCP - General Internal Medicine 11/08/21 Amy Block DNP [address] [place] [address] Specialist Nurse Practitioner Family 10/11/23 Carlee Marcelo MD [address] [place] [address]994 Specialist Cardiology 10/11/23 documented as of this encounter
--- OUTSIDE RECORDS SUMMARY | 2024-11-30 20:39 | XMS_ITS | Encounter Summary ---
Author Organization [facility] Address [address] [place] [address] Care Team Providers Care Air Conditioner Installer Helper Name Role Phone Karin Clemente MD Primary Care Provider [phone] Amy Block DNP Unavailable [phone] Carlee Marcelo MD Unavailable [phone] Encounter Details Date Type Department Care Team Description 05/25/2023 Orders Only Medical Records [address] [place] [address] [facility] Social History Tobacco Use Types Packs/Day [...] Date/Time Associated Diagnosis Comments OUTSIDE EKG Routine 05/15/2023 OUTSIDE PLAIN FILM Routine 05/15/2023 documented in this encounter Results * OUTSIDE PLAIN FILM (05/15/2023) Narrative Authorizing Provider Result [facility] RADIOLOGY * OUTSIDE EKG (05/15/2023) [facility] CARDIOLOGY documented in this encounter Visit Diagnoses Not on filedocumented in this encounter Care Teams Air Conditioner Installer Helper Relationship Specialty Start Date End Date Karin Clemente MD [address] [place] [address] PCP - General Internal Medicine 11/08/21 Amy Block DNP [address] [place] [address]89 Specialist Nurse Practitioner Family 10/11/23 Carlee Marcelo MD [address] [place] [address]990 Specialist Cardiology 10/11/23 documented as of this encounter
--- OUTSIDE RECORDS SUMMARY | 2024-11-30 20:39 | XMS_ITS | Encounter Summary ---
Author Organization [facility] Address [address] [place] [address] Care Team Providers Care Deputy Program Manager Name Role Phone Karin Clemente MD Primary Care Provider [phone] Amy Block DNP Unavailable [phone] Carlee Marcelo MD Unavailable [phone] Reason for Visit * Reason Onset Date Comments VNA Call 11/22/2021 FYI Encounter Details Date Type Department Care Team Description 11/22/2021 Telephone Adult Medicine - [place] [address] [place] [address] Karin Clemente MD [address] [place] [address] [facility]NA Call (FYI ) Social History Tobacco Use Types Packs/Day [...] encounter Miscellaneous Notes * Telephone Encounter - Olivia Kramer - 11/22/2021 3:19 PM EDT Appt booked for 01/24 at 10:30AM with Kathryn * Telephone Encounter - Michael Hymanx L.P.N. - 11/22/2021 3:02 PM EDT Please book ER follow up Thank you * Telephone Encounter - Judy Vaca - 11/22/2021 2:33 PM EDT [facility]NA CALL Which [facility] office is calling? [facility] Full name of caller: Neetu The caller is A nurse Is the caller at the patients home?: NO Reason for call: FYI to provider pt was seen at [facility] ER on 11/20- er visit only Does caller need an urgent call back? NO Was CONTACT Telephone # obtained above?: YES Fax #: n/a documented in this encounter Plan of Treatment Not on file documented as of this encounter Visit Diagnoses Not on filedocumented in this encounter Care Teams Deputy Program Manager Relationship Specialty Start Date End Date Karin Clemente MD [address] [place] [address] [phone] PCP - General Internal Medicine 11/08/21 Amy Block DNP [address] [place] [address]78 Specialist Nurse Practitioner Family 10/11/23 Carlee Marcelo MD [address] [place] [address] Specialist Cardiology 10/11/23 documented as of this encounter
--- OUTSIDE RECORDS SUMMARY | 2024-11-30 20:39 | XMS_ITS | Encounter Summary ---
Author Organization [facility] Address [address] [place] [address] Care Team Providers Care International Project Engineer Name Role Phone Judy Bearden MD Primary Care Provider UnaRae De La Rosa DO Primary Care Pro vider Unavailable Chuck Cervantes MD Primary Care Provider Unavailab Erika Herrera MD Primary Care Provider [phone] Hollie Nicholas MD Primary Care Provider Unavai Karin Maldonado MD Primary Care Provider [phone] Amy Block DNP Unavailable [phone] Carlee Marcelo MD Unavailable [phone] Encounter Details Date Type Department Care Team Description 06/04/2014 Casework Specialist Report Medical Records [address] [place] [address] Daphne Starr MD Social History Tobacco Use [...] on filedocumented in this encounter Care Teams International Project Engineer Relationship Specialty Start Date End Date Judy Bearden MD PCP - General Internal Medicine 06/02/14 11/19/14 Rae Boss DO PCP - General Internal Medicine 11/20/14 08/19/20 Chuck Cervantes MD PCP - General Internal Medicine 08/20/20 11/22/20 Erika Burciaga MD [address] [place] [address] PCP - General Internal Medicine 11/23/20 03/28/21 Hollie Nicholas MD [address] [place] [address] PCP - General Internal Medicine 03/29/21 11/07/21 Karin Clemente MD [address] [place] [address] PCP - General Internal Medicine 11/08/21 Amy Block DNP [address] [place] [address] 25387 Specialist Nurse Practitioner Family 10/11/23 Carlee Marcelo MD [address] [place] [address]21 Specialist Cardiology 10/11/23 documented as of this encounter
--- OUTSIDE RECORDS SUMMARY | 2024-11-30 20:39 | XMS_ITS | Encounter Summary ---
Author Organization [facility] Address [address] [place] [address] Care Team Providers Care Repair Cameraman Name Role Phone Rae Boss DO Primary Care Pro vider Unavailable Chuck Cervantes MD Primary Care Provider Unavailab Erika Herrera MD Primary Care Provider [phone] Hollie Nicholas MD Primary Care Provider Karin Vyas MD Primary Care Provider [phone] Amy Block DNP Unavailable [phone] Carlee Marcelo MD Unavailable [phone] Encounter Details Date Type Department Care Team Description 12/12/2016 Refill Adult Medicine [address] [phone] Rae Boss DO Social History Tobacco Use [...] on filedocumented in this encounter Care Teams Repair Cameraman Relationship Specialty Start Date End Date Rae Boss DO PCP - General Internal Medicine 11/20/14 08/19/20 Chuck Cervantes MD PCP - General Internal Medicine 08/20/20 11/22/20 Erika Burciaga MD [address] [place] [address] PCP - General Internal Medicine 11/23/20 03/28/21 Hollie Nicholas MD [address] [place] [address] PCP - General Internal Medicine 03/29/21 11/07/21 Karin Clemente MD [address] [place] [address] PCP - General Internal Medicine 11/08/21 Amy Block DNP [address] [place] [address] 12273 Specialist Nurse Practitioner Family 10/11/23 Carlee Marcelo MD [address] [place] [address] 61568 Specialist Cardiology 10/11/23 documented as of this encounter
--- OUTSIDE RECORDS SUMMARY | 2024-11-30 20:39 | XMS_ITS | Encounter Summary ---
Author Organization [facility] Address [address] [place] [address] Care Team Providers Care Multimedia Project Manager Name Role Phone Rae Boss DO Primary Care Pro vider Unavailable Chuck Cervantes MD Primary Care Provider Unavailab Erika Herrera MD Primary Care Provider [phone] Hollie Nicholas MD Primary Care Provider Karin Vyas MD Primary Care Provider [phone] Amy Block DNP Unavailable [phone] Carlee Marcelo MD Unavailable [phone] Reason for Visit * Reason Onset Date Comments Prior Authorization 05/01/2020 Encounter Details Date Type Department Care Team Description 05/01/2020 Telephone Adult Medicine [address] [id number] Rae Boss DO Prior Authorization Social History Tobacco Use Types [...] Telephone Encounter - Kasey Sanchez M.A. - 09/22/2020 2:25 PM EDT Last written on 07/17/20 with refills. * Telephone Encounter - Kasey Sanchez M.A. - 05/05/2020 2:27 PM EST Prior authorization completed today on cover my meds for the cetirizine. Dx Code K30.9 Allergic rhinitis * Telephone Encounter - Jovanni Young - 05/01/2020 10:49 AM EST Prior Authorization for Medication-do not complete and send this encounter unless you have the fax from the pharmacy. Is this a Cover My Meds request: [place] of Medication cetirizine (ZYRTEC) 10 MG tablet Dose of Medication What is the RX # from the faxed refill? How does patient take this med? What Pharmacy did the fax come from: Pharmacy fax #: [facility] Information from fax: What Prescription Plan does the patient have? BIN/PCN if applicable: Cardholder ID: Person Code: Relationship Code: Help desk phone: documented in this encounter Plan of Treatment Not on file documented as of this encounter Visit Diagnoses Not on filedocumented in this encounter Care Teams Multimedia Project Manager Relationship Specialty Start Date End Date Rae Boss DO PCP - General Internal Medicine 11/20/14 08/19/20 Chuck Cervantes MD PCP - General Internal Medicine 08/20/20 11/22/20 Erika Burciaga MD [address] [place] [address] PCP - General Internal Medicine 11/23/20 03/28/21 Hollie Nicholas MD [address] [place] [address] PCP - General Internal Medicine 03/29/21 11/07/21 Karin Clemente MD [address] [place] [address] PCP - General Internal Medicine 11/08/21 Amy Block DNP [address] [place] [address] Specialist Nurse Practitioner [facility] 10/11/23 Carlee Marcelo MD [address] [place] [address] Specialist Cardiology 10/11/23 documented as of this encounter
--- OUTSIDE RECORDS SUMMARY | 2024-11-30 20:39 | XMS_ITS | Encounter Summary ---
Author Organization [facility] Address [address] [place] [address] Care Team Providers Care Field Training Agent Name Role Phone Chuck Cervantes MD Primary Care Provider Unavailab Erika Herrera MD Primary Care Provider [phone] Hollie Nicholas MD Primary Care Provider Karin Vyas MD Primary Care Provider [phone] Amy Block DNP Unavailable [phone] Carlee Marcelo MD Unavailable [phone] Encounter Details Date Type Department Care Team Description 09/24/2020 [facility] Medical Records [address] [place] [id number] Social History Tobacco Use Types Packs/Day Years [...] on filedocumented in this encounter Care Teams Field Training Agent Relationship Specialty Start Date End Date Chuck Cervantes MD PCP - General Internal Medicine 08/20/20 11/22/20 Erika Burciaga MD [address] [place] [address] PCP - General Internal Medicine 11/23/20 03/28/21 Hollie Nicholas MD [address] [place], [place] [phone] PCP - General Internal Medicine 03/29/21 11/07/21 Krain Clemente MD [address] [place] [address] PCP - General Internal Medicine 11/08/21 Amy Block DNP [address] [place] [address] Specialist Nurse Practitioner Family 10/11/23 Carlee Marcelo MD [address] [place] [address] Specialist Cardiology 10/11/23 documented as of this encounter
--- OUTSIDE RECORDS SUMMARY | 2024-11-30 20:39 | XMS_ITS | Encounter Summary ---
Author Organization [facility] Address [address] [place] [address] Care Team Providers Care Technician Name Role Phone Rae Boss DO Primary Care Pro vider Unavailable Chuck Cervantes MD Primary Care Provider Unavailab Erika Herrera MD Primary Care Provider [phone] Hollie Nicholas MD Primary Care Provider Karin Vyas MD Primary Care Provider [phone] Amy Block DNP Unavailable [phone] Carlee Marcelo MD Unavailable [phone] Encounter Details Date Type Department Care Team Description 10/23/2016 Night Triage Doc Medical Records [address] [place] [address] Abstract, Provider Social History Tobacco Use Types [...] on filedocumented in this encounter Care Teams Technician Relationship Specialty Start Date End Date Rae Boss DO PCP - General Internal Medicine 11/20/14 08/19/20 Chuck Cervantes MD PCP - General Internal Medicine 08/20/20 11/22/20 Erika Burciaga MD [address] [place] [address] PCP - General Internal Medicine 11/23/20 03/28/21 Hollie Nicholas MD [address] [place] [address] PCP - General Internal Medicine 03/29/21 11/07/21 Karin Clemente MD [address] [place], [place] [phone] PCP - General Internal Medicine 11/08/21 Amy Block DNP [address] [place] [address] Specialist Nurse Practitioner Family 10/11/23 Carlee Marcelo MD [address] [place] [address] Specialist Cardiology 10/11/23 documented as of this encounter
--- OUTSIDE RECORDS SUMMARY | 2024-11-30 20:39 | XMS_ITS | Encounter Summary ---
Author Organization [facility] Address [address] [place] [address] Care Team Providers Care Canal Structure Operator Name Role Phone Karin Clemente MD Primary Care Provider [phone] Amy Block DNP Unavailable [phone] Carlee Marcelo MD Unavailable [phone] Reason for Visit * Reason Onset Date Comments refill request 08/15/2023 Encounter Details Date Type Department Care Team Description 08/15/2023 Refill Pulmonology - [place] [address] [facility] [address] [place] [address] Shelly Ruiz APRN [address] [facility] [address] [place] [address] refill request Social History Tobacco [...] Telephone Encounter - Yariel Stock - 08/15/2023 11:58 AM EDT The patient called our [place] [facility] office regarding this. WHEN WAS THE PATIENT'S LAST APPOINTMENT IN ADULT MEDICINE? 08/09/2023 WHEN WAS THE LAST TIME THE PATIENT SAW THEIR PCP? 06/22/2023 Does patient have an upcoming appointment? Yes 09/12/2023 (THE MEDICATION REQUESTED IS ON THE MED [...] N/A Patients current insurance carrier is: Payor: [facility] FFS / Plan: [facility] / Product Type: MEDICAID RISK documented in this encounter Plan of Treatment Not on file documented as of this encounter Visit Diagnoses Diagnosis Severe asthma without complication, unspecified whether persistent documented in this encounter Care Teams Canal Structure Operator Relationship Specialty Start Date End Date Karin Clemente MD [address] [place] [address] PCP - General Internal Medicine 11/08/21 Amy Block DNP [address] [place] [address] Specialist Nurse Practitioner Family 10/11/23 Carlee Marcelo MD [address] [place] [address] Specialist Cardiology 10/11/23 documented as of this encounter
--- OUTSIDE RECORDS SUMMARY | 2024-11-30 20:39 | XMS_ITS | Encounter Summary ---
Author Organization [facility] Address [address] [place] [address] Care Team Providers Care Securities Counselor Name Role Phone Karin Clemente MD Primary Care Provider [phone] Amy Block DNP Unavailable [phone] Carlee Marcelo MD Unavailable [phone] Reason for Visit * Reason Comments E-prescribe Rx Request Encounter Details Date Type Department Care Team Description 06/13/2023 Refill Adult Medicine [address] [phone] Karin Clemente MD [address] [place] [address] [phone] E-prescribe Rx Request Social History Tobacco Use [...] N/A Patients current insurance carrier is: Payor: [facility] FFS / Plan: [facility] / Product Type: MEDICAID RISK documented in this encounter Plan of Treatment Not on file documented as of this encounter Visit Diagnoses Not on filedocumented in this encounter Care Teams Securities Counselor Relationship Specialty Start Date End Date Karin Clemente MD [address] [place] [address] PCP - General Internal Medicine 11/08/21 Amy Block DNP [address] [place] [address] [phone] Specialist Nurse Practitioner Family 10/11/23 Carlee Marcelo MD [address] [place] [address] Specialist Cardiology 10/11/23 documented as of this encounter
--- OUTSIDE RECORDS SUMMARY | 2024-11-30 20:39 | XMS_ITS | Encounter Summary ---
Author Organization [facility] Address [address] [place] [address] Care Team Providers Care Line Ordering Clinician Name Role Phone Rae Boss DO Primary Care Pro vider Unavailable Chuck Cervantes MD Primary Care Provider Unavailab Erika Herrera MD Primary Care Provider [phone] Hollie Nicholas MD Primary Care Provider Karin Vyas MD Primary Care Provider [phone] Amy Block DNP Unavailable [phone] Carlee Marcelo MD Unavailable Reason for Visit * Reason Onset Date Comments medication problems 03/21/2017 Encounter Details Date Type Department Care Team Description 03/21/2017 Telephone Adult Medicine [address] [address] Rae Boss DO medication problems Social History [...] encounter Miscellaneous Notes * Telephone Encounter - Whitley Liao M.A. - 03/22/2017 4:21 PM EST Please review and advise. * Telephone Encounter - Maryanne Kaplan - 03/21/2017 3:34 PM EST What is the name of the medication patient is having a problem with?: azithromycine 250mg What is the problem?: allergic to erythromycine and clarithromyicine, please advise Is the patient calling about the problem? NO If the patient is not the caller who is? [facility] Is this a NEW medication?: YES How long has the patient been taking this medication? Has not taken yet Who prescribed this medication for the patient? Selena Lema Who is patients PCP?: Rae Gay Payor: [facility] MEDICAID / Plan: [facility] MEDICAID HMO $0 [employer]ASPER / Product Type: HMO [id number] documented in this encounter Plan of Treatment Not on file documented as of this encounter Visit Diagnoses Not on filedocumented in this encounter Care Teams Line Ordering Clinician Relationship Specialty Start Date End Date Rae Boss DO PCP - General Internal Medicine 11/20/14 08/19/20 Chuck Cervantes MD PCP - General Internal Medicine 08/20/20 11/22/20 Erika Burciaga MD [address] [place] [address] PCP - General Internal Medicine 11/23/20 03/28/21 Hollie Nicholas MD [address] [place] [address] PCP - General Internal Medicine 03/29/21 11/07/21 Karin Clemente MD [address] [place] [address] PCP - General Internal Medicine 11/08/21 Amy Block DNP [address] [place] [address] Specialist Nurse Practitioner Family 10/11/23 Carlee Marcelo MD [address] [place] [address] Specialist Cardiology 10/11/23 documented as of this encounter
--- OUTSIDE RECORDS SUMMARY | 2024-11-30 20:39 | XMS_ITS | Encounter Summary ---
Author Organization [facility] Address [address] [place] [address] Care Team Providers Care Compliance Clerk Name Role Phone Karin Clemente MD Primary Care Provider [phone] Amy Block DNP Unavailable [phone] Carlee Marcelo MD Unavailable [phone] Encounter Details Date Type Department Care Team Description 03/23/2022 Pt. Non Urgent Medical Question Adult Medicine [address] [phone] Karin Clemente MD [address] [place] [address] [phone] Social History Tobacco Use Types Packs/Day Years [...] suspected to have Coronavirus/COVID-19? No / Unsure 03/22/2022 12:50 PM EST documented as of this encounter Miscellaneous Notes * Telephone Encounter - Lynn White - 03/23/2022 1:51 PM ESTFrom: Krsytal Deforge To: Yong Clemente Sent: 03/23/2022 1:10 PM EST Subject: CT scan Hello I'm very happy everything is normal on my CT scan but what is the lump that on my neck so this is something I don't have to worrie about but what are they calling it if you can write back I would love that thank you documented in this encounter Plan of Treatment Not on file documented as of this encounter Visit Diagnoses Not on filedocumented in this encounter Care Teams Compliance Clerk Relationship Specialty Start Date End Date Karin Clemente MD [address] [place] [address] PCP - General Internal Medicine 11/08/21 Amy Block DNP [address] [place] [address] Specialist Nurse Practitioner Family 10/11/23 Carlee Marcelo MD [address] [place] [address] Specialist Cardiology 10/11/23 documented as of this encounter
--- OUTSIDE RECORDS SUMMARY | 2024-11-30 20:39 | XMS_ITS | Encounter Summary ---
Author Organization [facility] Address [address] [place] [address] Care Team Providers Care Insulator Tester Name Role Phone Karin Clemente MD Primary Care Provider [phone] Aym Block DNP Unavailable [phone] Carlee Marcelo MD Unavailable Encounter Details Date Type Department Care Team Description 07/04/2023 Outside Sales Account Representative Report Medical Records [address] [place] [address] Rissa Gilbert Social History Tobacco Use Types [...] on filedocumented in this encounter Care Teams Insulator Tester Relationship Specialty Start Date End Date Karin Clmeente MD [address] [place] [address] PCP - General Internal Medicine 11/08/21 Amy Block DNP [address] [place] [address] Specialist Nurse Practitioner Family 10/11/23 Carlee Marcelo MD [address] [place] [address] Specialist Cardiology 10/11/23 documented as of this encounter
--- OUTSIDE RECORDS SUMMARY | 2024-11-30 20:39 | XMS_ITS | Clinical Summary ---
Author Organization [facility] [address] [place] [address] [place] [phone] Phone Care Team Providers Care Correctional Food Service Supervisor Name Role Phone Karin Clemente MD Primary Care Provider [phone] Allergies Active Allergy Reactions Criticality Noted Date Comments Amoxicillin-Pot Clavulanate High 12/01/19 22 Other Reaction(s): Numbness, tingling or swelling of the lips, tongue or mouth Cefaclor 12/09/2014 Clindamycin Itching 05/01/2016 Lemon Flavor 05/27/2016 Macrolide Antibiotics 02/11/2014 Methylisothiazolinone 01/27/2017 Other 03/14/2016 TESTED POSITIVE BY PERSONNEL COORDINATOR Peanut 03/14/2016 PERSONNEL COORDINATOR TESTED POSITIVE [place] 12/03/2020 Medications cetirizine (ZyrTEC) 10 mg tablet [...] 90 capsule 3 07/19/19 25 026 Active multivitamin (Tab-A-Meri) tablet Take 1 tablet by mouth once daily 90 tablet 1 08/06/19 25 Active Ventolin HFA 90 mcg/actuation inhaler Inhale 2 puffs by mouth every 4 (four) hours if needed for wheezing. 36 g 2 09/04/19 25 025 Active EPINEPHrine (EpiPen 2-Alexi) 0.3 mg/0.3 mL [...] a day. 60 tablet 2 11/01/19 25 026 Active triamcinolone (NASACORT) 55 mcg nasal inhalerIndicati ons:Seasonal allergic rhinitis due to pollen Administer 2 sprays into each nostril 1 (one) time each day. 10.8 mL 2 11/01/19 25 026 Active famotidine (PEPCID) 40 mg tablet Take 1 tablet by mouth twice daily 180 tablet 11/05/19 25 Active famotidine (PEPCID) 40 mg tablet Take 1 tablet (40 mg total) by mouth 2 (two) times a day. 180 each 06/19/19 25 025 Discontinued Active Problems Problem Noted Date Diagnosed Date Bilateral tinnitus 07/02/2024 Referred otalgia of right ear 07/02/2024 Chronic gastric ulcer with obstruction Kidney stones 01/08/2024 Moderate asthma 01/08/2024 Overview (01/08/2024): 05/18/2017 ,nebs prn. Family history of cancer 01/08/2024 Hx of splenomegaly 01/08/2024 Hx of Helicobacter infection 01/08/2024 Morbid obesity with BMI of 4 5.0-49.9, adult (CMS/HCC V24, CMS/HCC V28) 01/08/2024 Benign paroxysmal positional vertigo 03/28/2023 [...] 02/11/2014 Anxiety 02/11/2014 Overview (01/08/2024): Follows with [facility] behavioral health Counselor: Vanessa Tidwell - weekly OCD (obsessive compulsive disorder) 02/11/2014 Overview (01/08/2024): Sees [facility] Diaposproa- Victoria Tidwell Tenosynovitis, de Quervain 02/11/2014 Overview (01/08/2024): right Dyshidrotic eczema 02/11/2014 Encounters Date Type Department Care Team Description 11/13/2024 1:30 PM EDT Office Visit Orthopedic Surgery [facility] [address] [phone] Jonatan Marie, DPM Peripheral venous insufficiency (Primary Dx); Plantar fascial fibromatosis; Dermatophytosis of nail; Tendinitis of right ankle; Bursitis of right foot 11/07/2024 Telephone Adult Medicine [address] [phone] Corry Renteria [place] 11/06/2024 Telephone Orthopedic Surgery [facility] [address] [phone] Jonatan Marie DPM 10/31/2024 1:00 PM EDT [facility] 175 [facility] 200 [place] [phone] Sevastyanova, Shelly, DRY CLEANING MACHINE OPERATOR Seasonal allergic rhinitis due to pollen (Primary Dx); Moderate persistent asthma with exacerbation 10/28/2024 Telephone Adult Medicine [address] [phone] Karin Clemente MD 10/22/2024 1:15 PM EDT Office Visit Bariatric Surgery [facility] 175 [facility] 120 [place] [phone] Daisy Dan MD Calculus of gallbladder without cholecystitis without obstruction (Primary Dx); Lipoma of torso; Lipoma of neck; Obesity, Class III, BMI 40-49.9 (morbid obesity); Gastroesophageal reflux disease, unspecified whether esophagitis present; Lipoma of right thigh 10/09/2024 Telephone Adult Medicine [address] [phone] Karin Clemente MD 09/26/2024 11:15 AM EDT Office Visit Obstetrics & Gynecology [address] [phone] Cherie Wilkinson CNM Encounter for well woman exam with routine gynecological exam (Primary Dx); Screening breast examination; Pap smear abnormality of cervix with ASCUS favoring benign; Screening for cervical cancer; Skin eruption 09/17/2024 2:00 PM EDT Office Visit Orthopedic Surgery [facility] 250 175 [facility] 250 [place] [phone] Jonatan Marie, DPM Tendinitis of right ankle (Primary Dx); Bursitis of right foot 09/12/2024 10:00 AM EDT Office Visit Adult Medicine [address] [phone] Shay Gross PA Plantar fasciitis, bilateral (Primary Dx) 09/10/2024 3:15 PM EDT - 09/10/2024 11:59 PM EDT Hospital [facility] [address] [phone] Screening breast examination Discharge Disposition: Home or Self Care from Last 3 Months Immunizations Name Administration [...] (obsessive compulsive disorder) 02/11/2014 Asthma Morbid obesity ([facility] V24, [facility] V28) 02/11/2014 Anxiety 02/11/2014 ADHD (attention deficit hype ractivity disorder) 02/11/2014 DX:ADHD (attention deficit hyperactivity disorder) Allergic rhinitis 03/10/2015 DX:Allergic rh initis Anxiety 02/11/2014 DX:Anxiety; COMM ENT: Follows with [facility] health Counselor: Vanessa Tidwell - weekly Asthma [...] obesity with BMI of 4 5.0-49.9, adult ([facility] V24, [facility] V28) 02/11/2014 DX:Morbid obesity wit h BMI of 45.0-49.9, adult ([facility]) OCD (obsessive compulsive disorder) 02/11/2014 DX:OCD (obsessive compulsive disorder); COMMENT: Sees [facility] [place] Tenosynovitis, anabel Quervain 02/11/2014 DX:Te nosynovitis, de Quervain; COMMENT: [...] on file Not on file Obstetrics History * This document contains information received from the source organization and may not represent a complete record from that organization. Para Term AB IAB SAB Ectopic Multiple Livin g Live Births 3 2 2 2 2 Date Outcome GA Total Labor Labor/2nd/3rd Weight Sex Type Anes PTL Princess A1 A5 Name Clin 006 Term 40w 0d 2920 g (103 oz) M Vag-S pont None Living Dr.Si newsome Delivery Location:[facility] 12/29/2 009 Term 38w 0d 3827 g (135 oz) M Vag-S pont None Living 8 9 Delivery Location:[facility] 11/2018 Last Filed Vital Signs Vital Sign Reading Time Taken Comments Blood Pressure 130/84 10/31/2024 1:10 PM EDT Pulse 87 10/31/2024 1:10 PM EDT Temperature 35.6 C (96.1 F) 10/31/2024 1:10 PM EDT Respiratory Rate 16 10/31/2024 1:10 PM EDT Oxygen Saturation 91% 10/31/2024 1:10 PM EDT Inhaled Oxygen Concentration - - Weight 136 kg (299 lb 13.2 oz) 11/13/2024 1:24 P M EDT Height 165.1 cm (5' 5 ) 11/13/2024 1:24 PM EDT Body Mass Index 49.89 11/13/2024 1:24 PM EDT Plan of Treatment Upcoming Encounters Date Type Department Care Team (Late st Contact Info) Description 12/31/2024 12:00 PM EDT Evaluation [facility] [address] [facility] [address] [facility] [address] [place] [phone] Ines Tidwell PT 12/31/2024 2:45 PM EDT Office Visit Orthopedic Surgery [facility] 250 175 [facility] 250 [place] [phone] Jonatan Marie, DPM 175 [facility] 250 [place] [address] 01/08/2025 4:00 PM EDT Office Visit Adult Medicine [address] [phone] Karin Clemente MD [address] [place] [phone] 01/21/2025 3:20 PM EDT Office Visit Gastroenterology [facility] 175 [facility] 175 [facility] 200 [place] [phone] Amelia Garcia, ES [address] [place] [phone] 02/04/2025 11:00 AM EST Office Visit Pulmonolgy - [place] [address] [place] [phone] Shelly Ruiz NP [address] [place], [place] 02/17/2025 10:00 AM EST Consult Vascular Surgery - [place] [address] [place] [phone] Lulu Balderas PA [address] [place], [place] 03/18/2025 1:30 PM EST Consult [facility] [place] [address] [place] [phone] Heather Roldan PA [address] [place], [place] 04/29/2025 11:15 AM EST Office Visit Bariatric Surgery - [place] [address] [facility] [address] [place] [phone] Daisy Dan MD [address] [place], [place] Health Maintenance Due Date Last Done Comments Hepatitis B Vaccines (1 of 3 - 19+ 3-dose series) 2003 Pneumococcal Vaccine: Pediatrics (0 to 5 Years) and At-Risk Patients (6 to 49 Years) (1 of 2 - PCV) 2003 Social Influencers of Health Screening 03/12/2022 COVID-19 Vaccine (1 - 2023-2 5 season) 2023 Depression Screening [...] Procedure Name Priority Date/Time Associated Diagnosis Comments EXTERNAL CLINICAL LAB 11/08/2024 EXTERNAL CLINICAL LAB 11/08/2024 PAP SMEAR Routine 09/26/2024 11:50 AM EDT [...] 09/10/2024 3:44 PM EDT Screening breast examination LIPID PANEL Routine 08/09/2023 HIV SCREENING Routine 01/10/2022 HEPATITIS C SCREENING Routine 04/23/2020 from Last 3 Months or Most Recently Relevant to Health Maintenance Results * External clinical lab (11/08/2024) Only the most recent of2 resultswithin the time period is included. us Provider [facility] LAB BLOOD ORDERABLES Fin al Result * HPV with reflex genotype (09/26/2024 11:50 AM EDT) HPV Negative Negative LAB MICROBIOLOGY METHOD 09/27/2024 12:43 PM EDT [facility] Brushing/Spatula Cervix uteri structure / Unknown 09/26/2024 11:50 AM EDT 09/27/2024 6:13 AM EDT Cherie Wilkinson [facility] MOLECULAR DIAGNOSTICS ORD ERABLES Final Result [facility] [address] [place] [address], * Pap smear (09/26/2024 11:50 AM EDT) Interpretation Negative for intraepithelial lesion or malignancy 10/07/2024 8:39 AM EDT [facility] Clinical Information 2023 ASCUS, neg HPV 2022 ASCUS , neg HPV 10/07/2024 8:39 AM EDT [facility] General Categorization Negative 10/07/2024 8:39 AM EDT [facility] LMP 09/04/2024 10/07/2024 8:39 AM EDT [facility] Specimen Adequacy Satisfactory for evaluation, endocervical/schroeder sformation zone component absent 10/07/2024 8:39 AM EDT [facility] Pap Methodology Liquid Based Pap Test 10/07/2024 8:39 AM EDT [facility] Disclaimer The Pap test is a screening test which carries an inherent false negative rate. These test results should be correlated with the patient's clinical findings and history. This Pap test was processed using an automated screening system. Technical cytopathology services provided by [facility], at [address] [place] [address] (CLIA # [id number]/Bradley Drummond MD, Bank Reconciliator.) 10/07/2024 8:39 AM EDT [facility] Console Pap Interpretation Reported 10/07/2024 8:39 AM EDT [facility] Brushing/Spatula Cervix uteri structure / Unknown 09/26/2024 11:50 AM EDT 09/27/2024 6:13 AM EDT Comment:2023 ASCUS, neg HPV2 023 ASCUS , neg HPV Cherie Wilkinson [facility] CYTOLOGY ORDERABLES Final Result [facility] [address] [place] [address], * MG Mammo Digital Screening w Bandar [...] year. [facility]ammography location: [facility] [address] [place], [address] -------- FINAL REPORT -------- Dictated By: Tee Cronin Dictated Date: 09/11/2024 11:23 ET Assigned Physician: Tee Cronin Reviewed and Electronically Signed By: Tee Cronin Signed Date: 09/11/2024 11:31 ET Workstation ID: [id number] Transcribed By: Self Edit Transcribed Date: 09/11/2024 11:23 ET Narrative 09/11/2024 11:31 AM EDT EXAM: SCREENING MAMMOGRAPHY, BILATERAL HISTORY: SCREENING. Aunt diagnosed with breast cancer age 45 COMPARISON: 03/31/22 TECHNIQUE: Synthesized CC and MLO projections of each breast. Tomosynthesis of each breast in the CC and MLO projections. ADDITIONAL IMAGING: None Computer-aided detection was employed with the DocDepD ProFound AI 3-D. TISSUE DENSITY: The breasts are [...] None Computer-aided detection was employed with the iCAD ProFound AI 3-D. TISSUE DENSITY: The breasts are [...] year. Mammography location: [facility] [address], [address] -------- FINAL REPORT -------- Dictated By: Tee Cronin Dictated Date: 09/11/2024 11:23 ET Assigned Physician: Tee Cronin Reviewed and Electronically Signed By: Tee Cronin Signed Date: 09/11/2024 11:31 ET Workstation ID: [id number] Transcribed By: Self Edit Transcribed Date: 09/11/2024 11:23 ET Cherie Wilkinson CNM IMG BI PROCEDURES Final Resul t * (ABNORMAL) Lipid panel (08/09/2023) LDL/HDL Ratio 3 0 - 4 Triglycerides 120 0 - 150 mg/dL Cholesterol 193 0 - 200 mg/dL HDL 60 >=40 mg/dL LDL Cholesterol 109(A) 0 - 100 mg/dL Blood Venous blood specimen / Unknown [facility] Provider LAB BLOOD ORDERABLES Dana l Result * HIV Screening (01/10/2022) Pathologist [facility] HIV Screening abstracted [facility] Provider HEALTH MAINTENANCE Final Result * Hepatitis C Screening (04/23/2020) [facility] Hepatitis C Screening abstracted [facility] Provider HEALTH MAINTENANCE Final Result from Last 3 Months or Most Recently Relevant to Health Maintenance Insurance [facility] [place] [address] Care Teams Correctional Food Service Supervisor Relationship Specialty Start Date End Date Karin Clemente MD [address] [place] [phone] PCP - General Internal Medicine 01/23/24
--- OUTSIDE RECORDS SUMMARY | 2024-11-30 20:39 | XMS_ITS | Encounter Summary ---
Author Organization [facility] Address [address] [place] [address] Care Team Providers Care Agriculture Science Teacher Name Role Phone Karin Clemente MD Primary Care Provider [phone] Amy Block DNP Unavailable [phone] Carlee Marcelo MD Unavailable [phone] Reason for Visit * Reason Comments E-prescribe Rx Request Encounter Details Date Type Department Care Team Description 07/17/2023 Refill Pulmonology - [place] 175 [facility] [address] [place] [address] Shelly Ruiz APRN 175 [facility] 200 [place] [address] E-prescribe Rx Request Social History [...] allergies documented in this encounter Care Teams Agriculture Science Teacher Relationship Specialty Start Date End Date Karin Clemente MD [address] [place] [address] PCP - General Internal Medicine 11/08/21 Amy Block DNP [address] [place] [address] Specialist Nurse Practitioner Family 10/11/23 Carlee Marcelo MD [address] [place] [address] Specialist Cardiology 10/11/23 documented as of this encounter
--- OUTSIDE RECORDS SUMMARY | 2024-11-30 20:39 | XMS_ITS | Encounter Summary ---
Author Organization [facility] Address [address] [place] [address] Care Team Providers Care Salesperson Handbags Name Role Phone Rae Boss DO Primary Care Pro vider Unavailable Chuck Cervantes MD Primary Care Provider Unavailab Erika Herrera MD Primary Care Provider [phone] Hollie Nicholas MD Primary Care Provider Karin Vyas MD Primary Care Provider [phone] Amy Block DNP Unavailable [phone] Carlee Marcelo MD Unavailable [phone] Encounter Details Date Type Department Care Team Description 11/25/2018 Night Triage Doc Medical Records [address] [place] [address] Abstract, Provider Social History Tobacco Use Types [...] on filedocumented in this encounter Care Teams Salesperson Handbags Relationship Specialty Start Date End Date Rae Boss DO PCP - General Internal Medicine 11/20/14 08/19/20 Chuck Cervantes MD PCP - General Internal Medicine 08/20/20 11/22/20 Erika Burciaga MD [address] [place] [address] PCP - General Internal Medicine 11/23/20 03/28/21 Hollie Nicholas MD [address] [place] [address] PCP - General Internal Medicine 03/29/21 11/07/21 Karin Clemente MD [address] [place], [place] [phone] PCP - General Internal Medicine 11/08/21 Amy Block DNP [address] [place] [address] Specialist Nurse Practitioner Family 10/11/23 Carlee Marcelo MD [address] [place] [address] Specialist Cardiology 10/11/23 documented as of this encounter
--- OUTSIDE RECORDS SUMMARY | 2024-11-30 20:39 | XMS_ITS | Encounter Summary ---
Author Organization [facility] Address [address] [place] [address] Care Team Providers Care Metal Drilling Machine Operator Name Role Phone Karin Clemente MD Primary Care Provider [phone] Amy Block DNP Unavailable [phone] Carlee Marcelo MD Unavailable [phone] Reason for Visit * Reason Comments E-prescribe Rx Request Encounter Details Date Type Department Care Team Description 06/12/2022 Refill Adult Medicine [facility] [address] [place] [address] Erika Bolton PA-C [address] [place] [phone] E-prescribe Rx Request Social History Tobacco Use [...] filedocumented in this encounter Care Teams Metal Drilling Machine Operator Relationship Specialty Start Date End Date Karin Clemente MD [address] [place] [phone] PCP - General Internal Medicine 11/08/21 Amy Block DNP [address] [place] [address] Specialist Nurse Practitioner Family 10/11/23 Carlee Marcelo MD [address] [place] [address] Specialist Cardiology 10/11/23 documented as of this encounter
--- OUTSIDE RECORDS SUMMARY | 2024-11-30 20:39 | XMS_ITS | Encounter Summary ---
Author Organization [facility] Address [address] [place] [address] Care Team Providers Care On Site Soil Evaluator Name Role Phone Rae Boss DO Primary Care Pro vider Unavailable Chuck Cervantes MD Primary Care Provider Unavailab Erika Herrera MD Primary Care Provider [phone] Hollie Nicholas MD Primary Care Provider Karin Vyas MD Primary Care Provider [phone] Amy Block DNP Unavailable [phone] Carlee Marcelo MD Unavailable [phone] Reason for Visit * Reason Onset Date Comments 11/17/2018 Encounter Details Date Type Department Care Team Description 11/17/2018 Telephone Adult Urgent Care - [address] [address] Rae Boss DO Social History Tobacco Use [...] patient had this problem? 2 days Pt???s PATIENT SAFETY OFFICER provider: Archana Ochoa CNM Last menstrual period (LMP) or EDC (due date): 06/20 3rd. Baby Called Isra documented in this encounter Plan of Treatment Not on file documented as of this encounter Visit Diagnoses Not on filedocumented in this encounter Care Teams On Site Soil Evaluator Relationship Specialty Start Date End Date Rae Boss DO PCP - General Internal Medicine 11/20/14 08/19/20 Chuck Cervantes MD PCP - General Internal Medicine 08/20/20 11/22/20 Erika Burciaga MD [address] [place] [address] PCP - General Internal Medicine 11/23/20 03/28/21 Hollie Nicholas MD [address] [place] [address] PCP - General Internal Medicine 03/29/21 11/07/21 Karin Clemente MD [address] [place] [address] PCP - General Internal Medicine 11/08/21 Amy Block DNP [address] [place] [address] Specialist Nurse Practitioner Family 10/11/23 Carlee Marcelo MD [address] [place] [address] Specialist Cardiology 10/11/23 documented as of this encounter
--- OUTSIDE RECORDS SUMMARY | 2024-11-30 20:39 | XMS_ITS | Encounter Summary ---
Author Organization [facility] Address [address] [place] [address] Care Team Providers Care Project Controller Name Role Phone Karin Clemente MD Primary Care Provider [phone] Amy Block DNP Unavailable [phone] Carlee Marcelo MD Unavailable [phone] Reason for Referral * EXTERNAL (Routine) - Authorized/Booked Specialty Diagnoses / Procedures Referred By Janae lynch Referred To Contact Physical Therapy Procedures REFERRAL TO PHYSICAL THERAPY Karin Clemente MD [address] [place] [address] External Phys Thrpy Referral ID Status Reason Start Date Expiration Date V isits Requested Visits Authorized [id number] Authorized/B ooked 04/21/2022 07/20/2022 1 1 Reason for Visit * Reason Onset Date Comments Business Office Assistant Feedback 04/21/2022 Physical Therapy referral Encounter Details Date Type Department Care Team Description 04/21/2022 Telephone Radiology - [address] [phone] Karin Clemente MD [address] [place] [phone] Business Office Assistant Feedback (Physical Therapy referral) Social History Tobacco Use Types Packs/Day Years [...] suspected to have Coronavirus/COVID-19? No / Unsure 03/31/2022 9:49 AM EST documented as of this encounter Miscellaneous Notes * Telephone Encounter - Meg Chi - 04/21/2022 11:10 AM EST Patient called requesting that her Physical Therapy referral be sent to [facility] in [place]. She has not been able to get an appointment with [facility] so far. The referral needs to be updated as it is over 30 days old. New order is pended Thank you documented in this encounter Plan of Treatment Not on file documented as of this encounter Visit Diagnoses Not on filedocumented in this encounter Care Teams Project Controller Relationship Specialty Start Date End Date Karin Clemente MD [address] [place] [address] PCP - General Internal Medicine 11/08/21 Amy Block DNP [address] [place] [address] Specialist Nurse Practitioner Family 10/11/23 Carlee Marcelo MD [address] [place] [address] Specialist Cardiology 10/11/23 documented as of this encounter
[2024-11-30 21:46] VITALS: BP 144/71; PULSE 98; RESP 16; TEMP 36.2; O2SAT 96
== END 2024-11-30 21:46 | disposition home or self-care (01) ==
PROVIDERS: Physician Assistant; Emergency Provider Emergency Medicine; PCP Internal Medicine
DX: R51.9 Headache, unspecified (principal); R07.89 Other chest pain; F41.9 Anxiety disorder, unspecified; I49.8 Other specified cardiac arrhythmias; T51.91XA Toxic effect of unspecified alcohol, accidental (unintentional), initial encounter; X58.XXXA Exposure to other specified factors, initial encounter; Z79.899 Other long term (current) drug therapy
CPT/HCPCS: 36415; 80053; 82375; 83690; 84484; 85025; 93005; 99283

== ENCOUNTER → 2024-11-30 19:52 | Outpatient (BNV) | payer OTHER, SELFPAY | PROVIDERS: Emergency Provider Emergency Medicine; PCP Internal Medicine; Visit Provider Internal Medicine | DX: R07.9 Chest pain, unspecified (principal) | CPT/HCPCS: 93010 ==

== ENCOUNTER 2024-12-26 13:36 | Outpatient (REF) | payer OTHER, SELFPAY ==
--- NOTE | ~2024-12-26 | US_ITS ---
EXAMINATION: US LOWER EXTREMITY VENOUS (REFLUX EXAM), BILATERAL CLINICAL INFORMATION: Paresthesia of skin. COMPARISON: None. TECHNIQUE: Color flow triplex imaging and compression Doppler was performed to evaluate both the deep and the superficial systems bilaterally. To evaluate the superficial system, the examination was performed in the reverse Trendelenburg position. Color-flow Doppler ultrasound and compression ultrasound were utilized. In addition, maneuvers were utilized to demonstrate reflux. FINDINGS: 1. DEEP VENOUS ULTRASOUND OF THE RIGHT LOWER EXTREMITY: Common Femoral Vein: Compressible, normal respiratory variation and augmented flow. Femoral Vein: Compressible, normal color flow and augmentation. Popliteal Vein: Compressible, normal augmentation. Deep Reflux: There is no evidence of reflux in the deep system in either the common femoral vein, superficial femoral or the popliteal vein. There is no evidence of a Zimmerman's cyst. 2. SUPERFICIAL ULTRASOUND WITH DOPPLER OF RIGHT LOWER EXTREMITY: GREAT SAPHENOUS VEIN: Saphenofemoral Junction: 0.8 cm; Reflux: 0 ms Proximal Thigh: 0.5 cm; Reflux: 0 ms Mid Thigh: 0.5 cm; Reflux: 0 ms Distal Thigh: 0.5 cm; Reflux: 0 ms At Knee: 0.5 cm; Reflux: 0 ms Proximal Calf: 0.3 cm; Reflux: 0 ms Mid Calf: 0.2 cm; Reflux: 0 ms Distal Calf: 0.2 cm; Reflux: 0 ms DUPLICATED MEDIAL GREAT SAPHENOUS VEIN: None imaged. DUPLICATED LATERAL GREAT SAPHENOUS VEIN: SFJ: 0.4 cm, no reflux. Mid thigh: 0.3 cm. No reflux. SMALL SAPHENOUS VEIN: Saphenopopliteal Junction: 0.6 cm; Reflux: 0 ms Proximal: 0.2 cm; Reflux: 0 ms Distal: 0.2 cm; Reflux: 0 ms VEIN OF GIACOMINI: Not imaged. PERFORATORS: None imaged. VARICOSITIES: Proximal calf, 0.4 cm, 1316 ms of reflux. 3. DEEP VENOUS ULTRASOUND OF THE LEFT LOWER EXTREMITY: Common Femoral Vein: Compressible, normal respiratory variation and augmented flow. Femoral Vein: Compressible, normal color flow and augmentation. Popliteal Vein: Compressible, normal augmentation. Deep Reflux: There is no evidence of reflux in the deep system in either the common femoral vein, superficial femoral or the popliteal vein. There is no evidence of a Zimmerman's cyst. 4. SUPERFICIAL ULTRASOUND WITH DOPPLER OF LEFT LOWER EXTREMITY: GREAT SAPHENOUS VEIN: Saphenofemoral Junction: 1.1 cm; Reflux: 0 ms Proximal Thigh: 0.6 cm; Reflux: 0 ms Mid Thigh: 0.5 cm; Reflux: 0 ms Distal Thigh: 0.5 cm; Reflux: 0 ms At Knee: 0.5 cm; Reflux: 0 ms Proximal Calf: 0.4 cm; Reflux: 0 ms Mid Calf: 0.3 cm; Reflux: 0 ms Distal Calf: 0.3 cm; Reflux: 0 ms DUPLICATED MEDIAL GREAT SAPHENOUS VEIN: SFJ: 0.6 cm. No reflux. DUPLICATED LATERAL GREAT SAPHENOUS VEIN: None imaged. SMALL SAPHENOUS VEIN: Saphenopopliteal Junction: 0.5 cm; Reflux: 0 ms Proximal: 0.3 cm; Reflux: 0 ms Distal: 0.2 cm; Reflux: 0 ms VEIN OF GIACOMINI: Not imaged. PERFORATORS: None imaged. VARICOSITIES: Proximal thigh, 0.4 cm, no reflux. Distal thigh, 0.3 cm, no reflux. US/US venous insuf bilat IMPRESSION: RIGHT: 1. No evidence of deep venous thrombosis or deep venous reflux. 2. No evidence of superficial venous thrombosis or superficial venous reflux. 3. Solitary varicosity in the proximal right calf measuring 0.4 cm, with 1316 ms reflux. LEFT: 1. No evidence of deep venous thrombosis or deep venous reflux. 2. No evidence of superficial venous thrombosis or superficial venous reflux. 3. Small varicosities in the proximal and distal left thigh measuring 0.4 and 0.3 cm respectively, with no reflux evident. Electronically signed by: Cipriano Rossa MD 12/26/2024 03:04 PM EDT
--- OUTSIDE RECORDS SUMMARY | 2024-12-26 18:11 | XMS_ITS | Data Portability ---
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 [id number] Active 2014 Nasal polyp, unspecifi ed; Note: Date Diagnosed : 03/05/2015 4:09 PM (J33.9) Not Available [facility] 4 02:44:35 Deviated nasal septum 450336518 Active 2014 Deviated nasal septum; Note: Date Diagnosed : 03/05/2015 4:09 PM (J34.2) Not Available [facility] 4 02:44:37 Allergic rhinitis 48015681 Active 2015 Perennial allergic rhinitis; Note: Date Diagnosed : 04/17/2015 11:43 AM (J30.89) Not Available [facility] 4 02:44:28 Impacted cerumen of bilateral ears [id number] 26658 Active 2022 Impacted cerumen, bilateral ; Note: Date Diagnosed : 3 1:53 PM (H61.23) Not Available [facility] 4 02:44:27 Benign paroxysma l positiona l vertigo 532538113 Active 2022 Benign paroxysma l vertigo, right ear; Note: Date Diagnosed : 3 1:52 PM (H81.11) Not Available [facility] 4 02:44:34 Bilateral tinnitus 95907038725 02 Active 2024 MADYSON CHRISTENSEN [place], [facility] [address] [place] [address],[place] [address], [facility] [place], [address] , [facility] 5 16:09:05 Referred otalgia of right ear [id number] 92237 Active 2024 CALIXTO MELGAR MD [address] [place] [address],[place] [address], [facility] [place], [address] , [facility] 5 16:37:36 Problem Notes None recorded. Procedures Surgical History Date Name Laterality Status Provider Name and Address Organization Details Recorded Time 07/02/2024 Air & Speech Audio with Tymps - 14690, 59499 & 01979 completed MADYSON CHRISTENSEN [place], [facility],[place] [address], [place], [address], [facility] - [facility] 07/02/2024 16:09:18 Imaging Results None recorded. Procedure Notes None recorded. Medical Equipment None [...] mg tablet 07/02 completed Medicati on ID: [id number] D uration Value: 3 Brand Name: oxycodon [...] 6.5 % 07/02 completed Medicati on ID: [id number] D uration Value: 5 Brand Name: Ear [...] mg tablet 07/02 completed Medicati on ID: [id number] D uration Value: 10 Brand Name: ibuprofe n Send Method: E-Prescr ibed Sub s Allowed: subs PRICILLA Lopes al Instruct ion: TAKE 1 TABLET BY MOUTH EVERY 8 HOURS NEEDED FOR PAIN Med icationG enericNa me: ibuprofe n Not Available Not Available Not Available levofloxa josh 500 mg tablet 07/02 completed Medicati on ID: [id number] D uration Value: 7 Brand Name: levoflox [...] mcg tablet 07/02 completed Medicati on ID: [id number] D uration Value: 28 Brand Name: Tri-Prev ifem (28) Sen d Method: E-Prescr ibed Sub s Allowed: subs OK Speci al Instruct ion: TAKE 1 TABLET BY MOUTH EVERY DAY Medi cation nericNam e: Tri-Prev ifem (28) Not Available [...] Updated DateTime 07/02/2024 165.1 cm 53.3 kg/m2 051485.56 g Lindsay Freire [place] - [facility] 07/02/2024 16:21:17 Social History None recorded. Functional Status None recorded. Mental Status None recorded. Family History Nothing Reported. Medical History Condition Response Asthma Y GERD/Reflux Y Gynecological HistoryNo gynecological history recorded. Obstetrics History GPAL:G 0 P 0 0 0 0 Past Encounters Encounter ID Performer Location Encounter Start Date Encounter Closed Date Diagnosis/Indication Diagnosis SNOMED-CT Code Diagnosis ICD10 Code Diagnosis IMO Codes Diagnosis Note [id number] CALIXTO MELGAR MD [facility] [address] [address] 07/02/2024 14:57:13 07/02/2024 16:39:08 Bilateral tinnitus [id number] 102 H93.13 Audiologic al evaluation results: Right ear: Normal hearing with excellent word recognitio n. Left ear: Normal hearing with excellent word recognitio n. Tympanomet ry: Right Ear:Type A Left Ear:Type A Referred o talgia of right ear [id number] 959694 H92.01 M26.621 M79.11 The patient complains of intermitte nt right-side d periauricu lar vibration sensation. Physical exam reveals no identifiab le source of these symptoms involving the auricle, external auditory canal, or tympanic membrane. Audiometri c testing and tympanomet ry are similarly unrevealin g. Furthermor e, examinatio n was positive for crepitus and tenderness of the right jaw joint and verito-TMJ musculatur e. The [...] therapist who specialize s in TMJ disorders could also be considered . Health Concerns Section Related Observation LastModified by Organization Detai ls LastModified Time None Recorded Concern Status LastModified by Organization Details LastModified Time None Recorded Advance Directives Directive None Recorded Payers Insurance Date Sequence Insurance Name Policy Number Policy Ayon Covered Member ID Ayon Member ID Guarantor Name 07/02/2024 1 [facility] PLAN - [employer] (MEDICAID REPLACEMENT - HMO) [employer] Krsytal L Deforge [id number] Krsytal L Deforge Notes Date Note Type [...] discretion. No recent sx. CALIXTO MELGAR MD [address] [place] [address], [place], [address], [place] - [facility] 07/02/2024 16:39:55 OBGyn Episode No OBEpisode recorded.
== END 2024-12-26 13:37 | disposition home or self-care (01) ==
LOC: HO.US 13:36
PROVIDERS: PCP Internal Medicine; Visit Provider Nurse Practitioner Family
DX: R20.2 Paresthesia of skin (principal); R60.0 Localized edema; I83.93 Asymptomatic varicose veins of bilateral lower extremities
CPT/HCPCS: 93970

== ENCOUNTER → 2024-12-26 13:41 | Outpatient (BNV) | payer OTHER, SELFPAY | PROVIDERS: PCP Internal Medicine; Visit Provider Radiology Diagnostic Radiology | DX: I83.893 Varicose veins of bilateral lower extremities with other complications (principal) | CPT/HCPCS: 93970 ==

== ENCOUNTER 2025-01-07 14:46 | Outpatient (AMB) | payer OTHER, SELFPAY ==
[2025-01-07 14:50] VITALS: BP 140/80; PULSE 109; O2SAT 98; BMI 49.9
--- NOTE | 2025-01-07 14:50 | A.OFFVIS_ITS ---
Vital Signs 01/07/25 14:50 Height 5 ft 5 in Weight 300 lb BMI 49.9 BP 140/80 H Blood Pressure Location Rt brachial Position Sitting Pulse 109 H Pulse Source Pulse Oximeter Pulse Oximetry (%) 98 Oxygen Delivery Method Room Air Intake Visit Reasons: 6 MO FU Intake Note: Patient presents follow up Migraine medication. Specimen Collector Required: No Accompanied by: Self / Same As Patient Allergies peanut (PEANUT) Allergy (Severe, Verified 01/07/25 14:53) ANAPHYLAXIS clindamycin (CLINDAMYCIN) Allergy (Mild, Verified 01/07/25 14:53) UNKNOWN strawberry Allergy (Mild, Verified 01/07/25 14:53) Abdominal Pain amoxicillin (From Augmentin) Allergy (Unknown, Verified 01/07/25 14:53) Unknown cefaclor (From CECLOR) Allergy (Unknown, Verified 01/07/25 14:53) UNKNOWN clavulanic acid (From Augmentin) Allergy (Unknown, Verified 01/07/25 14:53) Unknown erythromycin base (ERYTHROMYCIN BASE) Allergy (Unknown, Verified 01/07/25 14:53) RASH lemon (Lemon) Adverse Reaction (Unknown, Verified 01/07/25 14:53) VOMITING SEAFOOD Allergy (Severe, Uncoded 11/30/24 19:49) ANAPHYLAXIS berries Allergy (Unknown, Uncoded 11/30/24 19:49) Unknown Medication List - Last Reconciled 01/07/25 by ALFONSO Peterson acetaminophen 325 mg PO Q4H PRN albuterol sulfate 2.5 mg (3 mL) inhalation Q4-6H PRN albuterol sulfate 90 mcg/actuation 2 puffs inhalation Q4-6H PRN benzonatate 200 mg PO TID 7 days biotin 5 mg PO DAILY cetirizine 20 mg PO DAILY PRN cholecalciferol (vitamin D3) 50 mcg PO DAILY cyclobenzaprine 5 mg PO TID PRN dicyclomine 20 mg PO QID 30 days diphenhydramine HCl (Banophen) 25 mg PO TID PRN docusate sodium (Colace) 100 mg PO .DAILY WITH FOOD 30 days famotidine 40 mg PO BID 90 days ferrous gluconate 324 mg PO DAILY 30 days fluticasone propion-salmeterol 230-21 mcg/actuation (Advair HFA) 2 puffs PO BID fluticasone propionate 50 mcg/actuation 2 sprays intranasal DAILY PRN folic acid 0.8 mg PO DAILY ibuprofen (Children's Ibuprofen) 600 mg (30 mL) PO Q6H PRN 30 days Lactobacillus rhamnosus GG (Culturelle) 1 cap PO DAILY magnesium glycinate 200 mg (2 x 100 mg magnesium) PO BID 90 days meclizine 25 mg PO TID PRN 30 days methocarbamol 750 mg PO Q8H PRN multivitamin with folic acid 400 mcg (Daily-Meri (with folic acid)) 1 tab PO DAILY ondansetron 4 mg PO Q6H PRN 30 days Proctosol HC 2.5% (hydrocortisone) 1 appl VT BID PRN NS riboflavin (vitamin B2) (Vitamin B-2) 400 mg (4 x 100 mg) PO DAILY 90 days sodium chloride 0.65% (Saline Nasal) sprays intranasal sumatriptan succinate 50 - 100 mg orally at onset of headache, may repeat in 2 hrs PRN; max 2 tabs per day or 4 tabs/week (may take with Ibuprofen) 30 days HPI Comments Details: 39-yr-old female presents for follow-up of migraine. Interval workup for a lower extremity internal vibration sensation, including BLE arterial and venous ultrasound, were unremarkable. She has noticed a left posterior painless cervical lump which she started to not ice about 2 months ago. She has a h/o lipoma. Patients she continues to try to lose weight, but continues to struggle with this. She reports she has been having increased headaches, but notes that she is noticing the headache radiating more down the left face. She is experiencing a headache most days, occasionally may have a headache free day. She is having 12-13 days per month of moderate migraine- typically a/w menstrual cycle. She is experiencing 1-2 severe migraine attacks, which subside after taking an Ibuprofen and sleeping. She was unable to trial taking edamame, she was not able to find it in her local grocery stores. She is also having an aching discomfort in the right TMJ region. She is still prone to grinding her teeth. Has plans to f/u with her dentist. 07/02/24, HPI: Pt denies any significant interval medical changes. She reports increased stress, which can impact her sleep, diet, overall physical activity. She notes slight weight increase, secondary to taking a course of prednisone for asthma exacerbation last couple of months, or is now feeling better She has returned to school, she is trying to study for the [employer] exam She would like to discuss starting prescription migraine treatment today. Patient states she is noticing more migraine which is lasting longer and not responding to ibuprofen/Tylenol/increase fluid intake, but less general mild day-to-day headaches. Pt reports her migraines occur typically when stressed, but sometimes before, and always after her menstrual cycle. Notices left TMJ region discomfort during this headache- imelda with talking. She is now having 2 migraines per month, which last 3-4 days in total. She is having less overall mild headache- no longer daily. Mild headache may feel like head pressure especially if she stands quickly. Her last migraine with visual aura was in March. Still has a pre/postmenstrual migraine. Can be dizzy/off-balance at onset of migraine. Has a h/o clenching her jaw in her sleep- does not have a mouth guard- is missing mx teeth. Typical migraine w/ visual aura- lightening bolt/squiggling lines w/ visual loss x's 30-45 minutes f/b severe migraine- just 2-3 x's in the last year. Typical mild-mod migraine starts as brief dizziness, mod-severe pressure headache in usually top/crown or less often front of the head. A/w vision feeling crooked, mild photophobia, mild phonophobia. Triggers- just before/after menses, caffeine, stress. [facility] History Anxiety Asthma Surgical History Hx of tonsillectomy Family History Father Heart disease Mother Migraine Heart disease Social History (Reviewed 11/08/24 @ 09:46 by ALIA Harrington Alcohol intake: never Patient Tobacco Use Status: Never used Tobacco Physical Exam Vital Signs: Last Vital Signs Pulse 109 H 01/07/25 14:50 BP 140/80 H 01/07/25 14:50 Pulse Ox 98 01/07/25 14:50 Oxygen Delivery Method Room Air 01/07/25 14:50 BMI result Body Mass Index 49.9 Const General: cooperative and no acute distress Resp Effort & Inspection: normal respiratory effort and able to speak in complete sentences Neuro Other: Mild right mandibular coronoid process insertion site tenderness upon palpation. Oral mucosa without erythema, drainage, odor. General: gait normal and moves all extremities Cranial nerves: Yes CN's II-XII intact bilaterally Gait exam (Neuro): Normal gait present Motor exam (neuro): 5/5 motor strength present throughout Psych Appearance: grossly normal Mental Status: mental status grossly normal Speech and movement: Normal speech and movement present Affect: normal affect Attitude: cooperative Assessment & Plan Assessment & Plan (1) Migraine with aura: Code(s): G43.109 - Migraine with aura, not intractable, without status migrainosus Category: Medical Qualifiers: Intractability: not intractable Status migrainosus presence: without status migrainosus Qualified Code(s): G43.109 - Migraine with aura, not intractable, without status migrainosus (2) Muscle cramps: Code(s): R25.2 - Cramp and spasm Category: Medical (3) Menstrual migraine: Code(s): G43.829 - Menstrual migraine, not intractable, without status migrainosus Category: Medical Qualifiers: Intractability: not intractable Status migrainosus presence: with status migrainosus Qualified Code(s): G43.821 - Menstrual migraine, not intractable, with status migrainosus Plan For dizziness: Improved, we will monitor We have held previous order for Brain MRI to further assess dizziness- pr eviously not completed d/t pt is claustrophobic. [address]- unremarkable. For migraine prevention: Continue Riboflavin. Trial magnesium glycinate 100-200 mg twice a day Previous trials: Magnesium oxide caused constipation. Premenstrual migraine: May try taking 1 cup of at a edemame per day at onset of menstrual cycle, and hopes this reduces severity of post menstrual migraine attack * May find a local grocery stores, such as [employer] For right TMJ/jaw discomfort: * Follow-up with dentist as scheduled * Consider nocturnal mouth guard * May apply small amounts of sensodyne toothpaste to right right-sided upper molar, gum and inner cheek-may help reduce discomfort. * Ibuprofen as needed For acute migraine treatment: May trial Sumatriptan 100mg tab, 1/2 - 1 tab (50-100mg) at onset of headache, may repeat in 2 hours. Max of 2 tabs (200mg) per 24 hours. May take sumatriptan with Tylenol and ibuprofen as below. * Potential adverse effects of triptans, include but are not limited to nausea, fatigue, chest tightness/tingling (usually passes within a few minutes), medication overuse headaches. Continue Children's liquid Ibuprofen- pt requests grape flavor only d/t strawberry/maurice allergy. Continue Tylenol prn. Continue prn Meclizine. Continue prn Zofran ODT 4mg- pt cannot take tablet version d/t peanut allergies. Future considerations: Allergy consult- to clarify if there are allergy concerns w/ flavored liquid meds-patient does not recall doing this f/u in 6 months or sooner prn. Pt to follow-up in 6 months or sooner prn. Medications: New magnesium glycinate 200 mg (2 x 100 mg magnesium) PO BID 360 caps 3RF 90 days Changed From ibuprofen (Children's Ibuprofen) Grape flavor (d/t maurice allergy) 600 mg (30 mL) PO Q6H 30 days PRN 473 mL 3RF pain To ibuprofen (Children's Ibuprofen) (avoid Maurice flavor d/t maurice allergy) 600 mg (30 mL) PO Q6H PRN 473 mL 3RF pain 30 days Refilled riboflavin (vitamin B2) (Vitamin B-2) 400 mg (4 x 100 mg) PO DAILY 360 tabs 3RF 90 days sumatriptan succinate 50 - 100 mg orally at onset of headache, may repeat in 2 hrs PRN; max 2 tabs per day or 4 tabs/week (may take with Ibuprofen) 12 tabs 6RF migraine headache 30 days Coding Level of Care Code Est Pt Level 4 (81425) Diagnoses Migraine with aura and without status migrainosus, not intractable G43.109 Intractability: not intractable Status migrainosus presence: without status migrainosus Muscle cramps R25.2 Menstrual migraine with status migrainosus, not intractable G43.821 Intractability: not intractable Status migrainosus presence: with status migrainosus
--- OUTSIDE RECORDS SUMMARY | 2025-01-07 18:02 | XMS_ITS | Clinical Summary ---
Author Organization [facility] [address] [place] [address] [place] [phone] Phone Care Team Providers Care Trash Collector Supervisor Name Role Phone Karin Clemente MD Primary Care Provider [phone] Allergies Active Allergy Reactions Criticality Noted Date Comments Amoxicillin-Pot Clavulanate High 12/01/19 22 Other Reaction(s): Numbness, tingling or swelling of the lips, tongue or mouth Cefaclor 12/09/2014 Clindamycin Itching 05/01/2016 Lemon Flavor 05/27/2016 Macrolide Antibiotics 02/11/2014 Methylisothiazolinone 01/27/2017 Other 03/14/2016 TESTED POSITIVE BY MOHEL Peanut 03/14/2016 MOHEL TESTED POSITIVE Condon 12/03/2020 Medications diphenhydrAMINE (BENADRYL) 25 mg capsule Take 1 capsule (25 mg total) by mouth every 6 (six) hours if needed for allergies. (TAKE 1-2 TABLETS WITH ALLERGY REACTIONS). 024 Active fluticasone propion-salmete roL (ADVAIR HFA) 230-21 mcg/actuation inhaler Inhale 2 puffs by mouth 2 (two) times a day. This medication has inhaler steroid: Rinse mouth with water and expectorate after each dose to prevent oral/esophageal candidiasis or fungal infection. - 024 Active azelastine (ASTELIN) 137 mcg (0.1 %) nasal spray Administer 2 sprays into each nostril 2 (two) times a day. Active meclizine (ANTIVERT) 25 mg tablet Take 1 tablet (25 mg total) by mouth 3 (three) times a day if needed for dizziness. 30 tablet 5 024 Active ibuprofen (ADVIL,MOTRIN) 100 mg/5 mL suspension Take 20 mL (400 mg total) by mouth every 8 (eight) hours if needed for mild pain. 1800 mL 1 025 Active SUMAtriptan (IMITREX) 100 mg tablet TAKE ONE-HALF TO ONE TABLET BY MOUTH NEEDED AT ONSET OF HEADACHE. MAY REPEAT IN 2 HOURS NEEDED. MAX 2 TABLETS PER DAY OR 4 TABLETS A WEEK. (MAY TAKE WITH IBUPROFEN). Active lactobacillus (Culturelle) 10 billion cell capsule Take 1 capsule by mouth 1 (one) time each day. 90 capsule 3 025 2025 Active multivitamin (Tab-A-Meri) tablet Take 1 tablet by mouth once daily 90 tablet 1 025 Active cholecalciferol (VITAMIN D-3) 50 mcg (2,000 unit) tablet Take 1 tablet by mouth once daily 90 tablet 1 025 Active folic acid (FOLVITE) 800 mcg tablet Take 1 tablet by mouth once daily 90 tablet 1 025 Active biotin 5 mg capsule Take 1 capsule by mouth once daily 30 capsule 4 025 Active zafirlukast (Accolate) 10 mg tabletIndicatio ns:Moderate persistent asthma with exacerbation Take 1 tablet (10 mg total) by mouth 2 (two) times a day. 60 tablet 2 025 2025 Active triamcinolone (NASACORT) 55 mcg nasal inhalerIndicati ons:Seasonal allergic rhinitis due to pollen Administer 2 sprays into each nostril 1 (one) time each day. 10.8 mL 2 025 2025 Active acetaminophen (TYLENOL) 325 mg tablet TAKE 1 TABLET BY MOUTH EVERY 4 HOURS NEEDED FOR PAIN 360 tablet Active EPINEPHrine (EPIPEN) 0.3 mg/0.3 mL injection INJECT CONTENTS OF 1 PEN INTRAMUSCULARLY NEEDED FOR ALLERGIC REACTION 2 each Active famotidine (PEPCID) 40 mg tablet Take 1 tablet by mouth twice daily 180 tablet Active riboflavin (VITAMIN B2) 100 mg tablet TAKE 4 TABLETS BY MOUTH ONCE DAILY 360 tablet Active Nasal [place], sodium chloride, 0.65 % nasal spray USE 1 DOSE IN EACH NOSTRIL 4 TIMES DAILY NEEDED FOR CONGESTION 44 mL 2 Active cetirizine (ZyrTEC) 10 mg tabletIndicatio ns:Moderate asthma without complication, unspecified whether persistent Take 2 tablets (20 mg total) by mouth 1 (one) time each day if needed for allergies or rhinitis. 90 tablet 3 Active Ventolin HFA 90 mcg/actuation inhalerIndicati ons:Moderate persistent asthma with exacerbation Inhale 2 puffs by mouth every 4 (four) hours if needed for wheezing. 36 g 2 025 2024 Active cetirizine (ZyrTEC) 10 mg tablet Take 2 tablets (20 mg total) by mouth 1 (one) time each day if needed for allergies or rhinitis. 024 2024 Discontinued(R eorder) sodium chloride (AYR) 0.65 % nasal drops Administer 1 spray into affected nostril(s) every 4 (four) hours if needed for other. congestion 024 2024 Discontinued(D uplicate order) riboflavin (VITAMIN B2) 100 mg tablet Take 4 tablets (400 mg total) by mouth 1 (one) time each day. 120 tablet 5 025 2024 Discontinued Ventolin HFA 90 mcg/actuation inhaler Inhale 2 puffs by mouth every 4 (four) hours if needed for wheezing. 36 g 2 025 2024 Discontinued(R eorder) EPINEPHrine (EpiPen 2-Alexi) 0.3 mg/0.3 mL injection Inject 0.3 mL (0.3 mg total) into the thigh if needed for anaphylaxis. 1 each 025 2024 Discontinued acetaminophen (TYLENOL) 325 mg tablet TAKE 1 TABLET BY MOUTH EVERY 4 HOURS NEEDED FOR PAIN 360 tablet 025 2024 Discontinued famotidine (PEPCID) 40 mg tablet Take 1 tablet by mouth twice daily 180 tablet 025 2024 Discontinued Active Problems Problem Noted Date Diagnosed Date Bilateral tinnitus 07/02/2024 Referred otalgia of right ear 07/02/2024 Chronic gastric ulcer with obstruction Kidney stones 01/08/2024 Moderate asthma 01/08/2024 Overview (01/08/2024): 05/18/2017 ,nebs prn. Family history of cancer 01/08/2024 Hx of splenomegaly 01/08/2024 Hx of Helicobacter infection 01/08/2024 Morbid obesity with BMI of 4 5.0-49.9, adult ([facility] V24, [facility] V28) 01/08/2024 Benign paroxysmal positional vertigo [...] 02/11/2014 Anxiety 02/11/2014 Overview (01/08/2024): Follows with [facility] behavioral health Counselor: Vanessa Tidwell - weekly OCD (obsessive compulsive disorder) 02/11/2014 Overview (01/08/2024): Sees [facility] Diaposproa- [place] Ulrichosynovitis, de Quervanora 02/11/2014 Overview (01/08/2024): right Dyshidrotic eczema 02/11/2014 Encounters Date Type Department Care Team Description 01/01/2025 10:15 AM EDT Treatment [facility] [address] [address] Lazaro Tidwell, WRITING MANAGER Tendinitis of right ankle (Primary Dx); Difficulty in walking 12/30/2024 Telephone Adult Medicine [address] [phone] Karin Clemente MD 12/25/2024 11:00 AM EDT Treatment [facility] [address] [address] Ge Kahn, PT Tendinitis of right ankle (Primary Dx); Difficulty in walking 12/20/2024 10:30 AM EDT Evaluation [address] [address] Dickson Conde, PT Tendinitis of right ankle (Primary Dx); Difficulty in walking 12/20/2024 Plan of Care Documentation [facility] [address] [address] 11/13/2024 1:30 PM EDT Office Visit Orthopedic Surgery [facility] [address] [address] Jonatan Marie, DPFreya Peripheral venous insufficiency (Primary Dx); Plantar fascial fibromatosis; Dermatophytosis of nail; Tendinitis of right ankle; Bursitis of right foot 11/07/2024 Telephone Adult Medicine [address] [phone] Corry Renteria [place] 11/06/2024 Telephone Orthopedic [facility] [address] [address] Jonatan Marie DPM 10/31/2024 1:00 PM EDT Office Visit Pulmonology - [place] 175 [facility] [address] [place] [phone] Shelly Ruiz NP Seasonal allergic rhinitis due to pollen (Primary Dx); Moderate persistent asthma with exacerbation 10/28/2024 Telephone Adult Medicine [address] [phone] Karin Clemente MD 10/22/2024 1:15 PM EDT Office Visit Bariatric Surgery [facility] 175 [facility] 120 [place] [phone] Daisy Dan MD Calculus of gallbladder without cholecystitis without obstruction (Primary Dx); Lipoma of torso; Lipoma of neck; Obesity, Class III, BMI 40-49.9 (morbid obesity); Gastroesophageal reflux disease, unspecified whether esophagitis present; Lipoma of right thigh 10/09/2024 Telephone Adult Medicine [address] [phone] Karin Clemente MD from Last 3 Months Immunizations Immunization Administration Dates Next Due Tdap Tetanus diptheria [...] (obsessive compulsive disorder) 02/11/2014 Asthma Morbid obesity (CMS/HCC V24, CMS/HCC V28) 02/11/2014 Anxiety 02/11/2014 ADHD (attention deficit hype ractivity disorder) 02/11/2014 DX:ADHD (attention deficit hyperactivity disorder) Allergic rhinitis 03/10/2015 DX:Allergic rh initis Anxiety 02/11/2014 DX:Anxiety; COMM ENT: Follows with [facility] health Counselor: Vanessa Tidwell - nallely Asthma DX:Asthma; COMME NT: 05/18/2017 ,nebs prn. [...] obesity wit h BMI of 45.0-49.9, adult ([facility]) OCD (obsessive compulsive disorder) 02/11/2014 DX:OCD (obsessive compulsive disorder); COMMENT: [facility] [place] Tenosynovitis, de Quervain 02/11/2014 DX:Te nosynovitis, [...] Vag-S pont None Living Dr.Si newsome [facility] Term 38w 0d 3827 g (135 oz) M Vag-S pont None Living 8 9 Delivery Location:[facility] 11/2018 Last Filed Vital Signs Vital Sign [...] Care Team (Late st Contact Info) Description 01/08/2025 4:00 PM EDT Office Visit Adult Medicine [address] [place], [place] [phone] Karin Clemente MD [address] [place], [place] 01/15/2025 8:00 AM EDT Treatment [address] [address] Dickson Conde, PT 01/17/2025 7:30 AM EDT Treatment [address] [address] Dickson Conde, PT 01/20/2025 8:00 AM EDT Treatment [address] [address] Dickson Conde, PT 01/21/2025 3:20 PM EDT Office Visit Gastroenterology [address] [phone] Amelia Garcia, ES [address] [address] 01/22/2025 12:30 PM EDT Treatment [address] [address] Max Styles, WRITING MANAGER 01/27/2025 8:00 AM EDT Treatment [address] [address] Benton Roth, WRITING MANAGER 01/29/2025 8:00 AM EDT Treatment [address] [address] Benton Roth, WRITING MANAGER 02/03/2025 8:00 AM EST Treatment [address] [address] Dickson Conde, PT 02/04/2025 11:00 AM EST Office Visit Pulmonology [facility] 175 [facility] 200 [place] [phone] Shelly Ruiz, ES [address] [place] [address] 02/05/2025 8:00 AM EST Treatment [facility] 175 [facility] 350 [place] [phone] Max Styles, WRITING MANAGER 02/12/2025 8:00 AM EST Treatment [facility] [address] [phone] Dickson Conde, PT 02/12/2025 10:45 AM EST Office Visit Orthopedic Surgery [facility] 250 175 [facility] 250 [place] [phone] Jonatan Marie, DPM 175 [facility] 250 [place] [phone] 02/14/2025 8:00 AM EST Treatment [facility] 175 [facility] 350 [place] [phone] Dickson Conde, PT 02/26/2025 8:30 AM EST Consult Vascular Surgery - [place] [address] [facility] 210 [place] [phone] Joselyn Mccann MD [address] [place] [phone] 03/18/2025 1:30 PM EST Consult [facility] 175 [facility] 150 [place] [phone] Heather Roldan PA 175 [facility] 150 [place], [place] [phone] 04/29/2025 11:15 AM EST Office Visit Bariatric Surgery [facility] 175 [facility] 120 [place] [address] Daisy Dan MD [facility] [phone] Health Maintenance Due Date Last Done Comments Hepatitis B Vaccines (1 of 3 - 19+ 3-dose series) 2003 Pneumococcal Vaccine: Pediatrics (0 to 5 Years) and At-Risk Patients (6 to 49 Years) (1 of 2 - PCV) 2003 HPV Vaccines (1 - 3-dose SCD M series) 2011 Social Influencers of Health Screening 03/12/2022 Depression Screening 04/03/2024 COVID-19 Vaccine ( - 2023-2 5 season) 2024 Influenza Vaccine (#1) 2024 Breast Cancer Screening 09/10/2026 09/11/19, 03/31/2022 Cholesterol Screening (Lipid Panel) 08/08/2028 08/09/2023, 08/09/2023 Cervical Cancer Screening: HPV 09/26/2029 0 09/26/2024, 07/12/2023 DTaP,Tdap,and Td Vaccines (3 - Td or Tdap) 09/30/2030 09/30/2020, 06/04/2020 RSV Immunization Adult Patients (1 - 1-dose 75+ series) 2059 Hepatitis C Screening Completed 04/23/2020 HIV Screening [...] Name Priority Date/Time Associated Diagnosis Comments EXTERNAL VASCULAR ULTRASOUND 12/26/2024 EXTERNAL VASCULAR ULTRASOUND 12/26/2024 EXTERNAL CLINICAL LAB 11/08/2024 EXTERNAL CLINICAL LAB 11/08/2024 HPV WITH REFLEX GENOTYPE Routine 09/26/2024 11:50 AM EDT Encounter for well woman exam with routine gynecological exam Pap smear abnormality of cervix with ASCUS favoring benign Screening for cervical cancer MG MAMMO DIGITAL SCREENING W BANDAR BILAT Routine 09/10/2024 3:44 PM EDT Screening breast examination LIPID PANEL Routine 08/09/2023 HM HIV SCREENING Routine 01/10/2022 HEPATITIS C SCREENING Routine 04/23/2020 from Last 3 Months or Most Recently Relevant to Health Maintenance Results * External Vascular Ultrasound (12/26/2024) Only the most recent of2 resultswithin the time period is included. Anatomical Region Laterality Modality Ultrasound Provider [facility] CV VASCULAR PROCEDURES F inal Result * External clinical lab (11/08/2024) Only the most recent of2 resultswithin the time period is included. Provider [facility] LAB BLOOD ORDERABLES Fin al Result * HPV with reflex genotype (09/26/2024 11:50 AM EDT) HPV Negative Negative LAB MICROBIOLOGY METHOD 09/27/2024 12:43 PM EDT [facility] Brushing/Spatula Cervix uteri structure / Unknown 09/26/2024 11:50 AM EDT 09/27/2024 6:13 AM EDT Cherie Wilkinson CNM LAB MOLECULAR DIAGNOSTICS ORD ERABLES Final Result [facility] [address] [place] [address], [place] [phone] * MG Mammo Digital Screening w Bandar [...] year. [facility]amm[facility] [address], [address] -------- FINAL REPORT -------- Dictated By: Tee Cronin Dictated Date: 09/11/2024 11:23 ET Assigned Physician: Tee Cronin Reviewed and Electronically Signed By: Tee Cronin Signed Date: 09/11/2024 11:31 ET Workstation ID: [id number] Transcribed By: Self Edit Transcribed Date: 09/11/2024 11:23 ET Narrative 09/11/2024 11:31 AM EDT EXAM: SCREENING MAMMOGRAPHY, BILATERAL HISTORY: SCREENING. Aunt diagnosed with breast cancer age 45 COMPARISON: 03/31/22 TECHNIQUE: Synthesized CC and MLO projections of each breast. Tomosynthesis of each breast in the CC and MLO projections. ADDITIONAL IMAGING: None Computer-aided detection was employed with the Nasse[employer] AI 3-D. TISSUE DENSITY: The breasts are [...] year. Mammography location: [facility] at [address], [address] -------- FINAL REPORT -------- Dictated By: Tee Cronin Dictated Date: 09/11/2024 11:23 ET Assigned Physician: Tee Cronin Reviewed and Electronically Signed By: Tee Cronin Signed Date: 09/11/2024 11:31 ET Workstation ID: [id number] Transcribed By: Self Edit Transcribed Date: 09/11/2024 11:23 ET Cherie Wilkinson [facility] IMG BI PROCEDURES Final Resul t * (ABNORMAL) Lipid panel (08/09/2023) [facility] LDL/HDL Ratio 3 0 - 4 Triglycerides 120 0 - 150 mg/dL Cholesterol 193 0 - 200 mg/dL HDL 60 >=40 mg/dL LDL Cholesterol 109(A) 0 - 100 mg/dL Blood Venous blood specimen / Unknown Historical Provider LAB BLOOD ORDERABLES Dana l Result * HIV Screening (01/10/2022) [facility] HIV Screening abstracted [facility] Provider HEALTH MAINTENANCE Final Result * Hepatitis C Screening (04/23/2020) [facility] Hepatitis C Screening abstracted Historical Provider HEALTH MAINTENANCE Final Result from Last 3 Months or Most Recently Relevant to Health Maintenance Insurance [facility] [employer] [facility] Care Teams Trash Collector Supervisor Relationship Specialty Start Date End Date Karin Clemente MD [address] [place] [address] PCP - General Internal Medicine 01/23/24
--- OUTSIDE RECORDS SUMMARY | 2025-01-07 18:02 | XMS_ITS | Data Portability ---
Author Organization [place] - [facility], Allergy Address [address] [address] Care Team Providers Care Adult Care Manager Name Role Phone ALIE PINO Referring Provider [...] Polyp of nasal cavity and/or nasal sinus [id number] Active 2014 Nasal polyp, unspecifi ed; Note: Date Diagnosed : 03/05/2015 4:09 PM (J33.9) Not Available [facility] 4 02:44:35 Deviated nasal septum 264408023 Active 2014 Deviated nasal septum; Note: Date Diagnosed : 03/05/2015 4:09 PM (J34.2) Not Available [facility] 4 02:44:37 Allergic rhinitis 11972730 Active 2015 Perennial allergic rhinitis; Note: Date Diagnosed : 04/17/2015 11:43 AM (J30.89) Not Available [facility] 4 02:44:28 Impacted cerumen of bilateral ears [id number] 50981 Active 2022 Impacted cerumen, bilateral ; Note: Date Diagnosed : 3 1:53 PM (H61.23) Not Available [facility] 4 02:44:27 Benign paroxysma l positiona l vertigo 845291911 Active 2022 Benign paroxysma l vertigo, right ear; Note: Date Diagnosed : 3 1:52 PM (H81.11) Not Available [facility] 4 02:44:34 Bilateral tinnitus 03812381035 02 Active 2024 MADYSON CHRISTENSEN [place], [facility] [address] [place] [address],[place] [address], [facility] [place], [phone] , [facility] 5 16:09:05 Referred otalgia of right ear 13046718129 46548 Active 2024 CALIXTO MELGAR MD [address] [place] [address],[place] [address], [facility] [place], [address] , [facility] 5 16:37:36 Problem Notes None recorded. Procedures Surgical History Date Name Laterality Status Provider Name and Address Organization Details Recorded Time 07/02/2024 Air & Speech Audio with Tymps - 91292, 86087 & 68599 completed MADYSON CHRISTENSEN [place], [facility] 100 [facility],[place] [address], [place], [address], [facility] - [facility] 07/02/2024 16:09:18 Imaging Results None recorded. Procedure [...] mg tablet 07/02 completed Medicati on ID: [id number] D uration Value: 3 Brand Name: oxycodon [...] 6.5 % 07/02 completed Medicati on ID: [id number] D uration Value: 5 Brand Name: Ear [...] mg tablet 07/02 completed Medicati on ID: [id number] D uration Value: 10 Brand Name: ibuprofe n Send Method: E-Prescr ibed Sub s Allowed: subs PRICILLA Lopes al Instruct ion: TAKE 1 TABLET BY MOUTH EVERY 8 HOURS NEEDED FOR PAIN Med icationG enericNa me: ibuprofe n Not Available Not Available Not Available levofloxa josh 500 mg tablet 07/02 completed Medicati on ID: [id number] D uration Value: 7 Brand Name: levoflox [...] mcg tablet 07/02 completed Medicati on ID: [id number] D uration Value: 28 Brand Name: Tri-Prev [...] Updated DateTime 07/02/2024 165.1 cm 53.3 kg/m2 124012.56 g Lindsay Freire [place] - [facility] 07/02/2024 16:21:17 Social History None recorded. Functional [...] ICD10 Code Diagnosis IMO Codes Diagnosis Note [id number] CALIXTO MELGAR MD [facility] of [address] [address] 07/02/2024 14:57:13 07/02/2024 16:39:08 Bilateral tinnitus 4492093654 102 H93.13 Audiologic al evaluation results: Right ear: Normal hearing with excellent word recognitio n. Left ear: Normal hearing with excellent word recognitio n. Tympanomet ry: Right Ear:Type A Left Ear:Type A Referred o talgia of right ear [id number] 574463 H92.01 M26.621 M79.11 The patient complains of [...] Ayon Member ID Guarantor Name 07/02/2024 1 [facility] PLAN - [place]ZZ[place] (MEDICAID REPLACEMENT - HMO) [facility] Krsytal L Deforge [id number] Krsytal L Deforge Notes Date Note Type [...] discretion. No recent sx. CALIXTO MELGAR MD [address] [place] [address], [place], [address], [place] - [facility] 07/02/2024 16:39:55 OBGyn Episode No OBEpisode recorded.
== END 2025-01-07 15:55 | disposition home or self-care (01) ==
LOC: HO.HSMS 14:46
PROVIDERS: PCP Internal Medicine; Visit Provider Nurse Practitioner Family
DX: G43.109 Migraine with aura, not intractable, without status migrainosus (principal); R25.2 Cramp and spasm; G43.821 Menstrual migraine, not intractable, with status migrainosus
CPT/HCPCS: 99214

== ENCOUNTER → 2025-01-07 14:46 | Outpatient (BNVA) | payer OTHER, SELFPAY | PROVIDERS: PCP Internal Medicine; Visit Provider Nurse Practitioner Family | DX: G43.109 Migraine with aura, not intractable, without status migrainosus (principal); M26.601 Right temporomandibular joint disorder, unspecified; G47.63 Sleep related bruxism; R25.2 Cramp and spasm; G43.821 Menstrual migraine, not intractable, with status migrainosus | CPT/HCPCS: 99212 ==

== ENCOUNTER 2025-02-05 19:57 | Emergency (ER) | payer OTHER, SELFPAY ==
--- OUTSIDE RECORDS SUMMARY | 2025-02-05 11:30 | XMS_ITS | Encounter Summary ---
Author Organization [facility] Address [address] [place] [address] Care Team Providers Care Corporate Giving Manager Name Role Phone Karin Clemente MD Primary Care Provider Reason for Referral * Consultation (Routine) - Authorized Specialty Diagnoses / Procedures Referred By Janae lynch Referred To Contact Pulmonology Diagnoses Racing heart beat Sleep difficulties Jeromy José PA [address] [place], [place] Phone: tel: fax: Pulmonology - [address] [place] [address] Phone: tel: fax: Referral ID Status Reason Start Date Expiration Date Visits Requested Visits Authorized [id number] Authorized Specialty Services Required 02/05/2025 02/05/2026 1 1 Reason for Visit * Reason Comments Mass Neck left side towar ds back Encounter Details Date Type Department Care Team ([facility] st Contact Info) Description 02/05/2025 11:30 AM EST Office Visit Adult Medicine [facility] [address] [place] [address] Jeromy José PA [address] [place], [place] Lymphadenopathy, occipital (Primary Dx); Racing heart beat; Sleep difficulties Social History Tobacco Use Types Packs/Day Years Used Date Smoking Tobacco: Never Passive Smoke Exposure: Never Smokeless Tobacco: Never Alcohol Use Standard Drinks/Week Comments No 0 (1 standard drink = 0.6 oz pur e alcohol) Housing Instability Answer Date Recorde d Are you worried that in the next 2 months you may not have stable housing? No 02/05/2025 Food Access & Nutrition Answer Date Rec orded Do you have access to a vari ety of food including fruits and vegetables? Yes 02/05/2025 Health Literacy Answer Date Recorded How often do you need to hav e someone help you when you read instructions, pamphlets, or other written material from your doctor or pharmacy? Never 02/05/2025 Caregiver: How often do you need to have someone help you when you read instructions, pamphlets, or other written material from your doctor or pharmacy? Not on file 02/05/2025 Financial Risk Answer Date Recorded How hard is it for you to pa y for the very basics like food, housing, medical care, and air conditioning / heating? Not very hard 02/05/2025 Transportation Answer Date Recorded Has the lack of transportati on kept you from meetings, work, or from getting things needed for daily living? No Has the lack of transportati on kept you from medical appointments or from getting medications? No 02/05/2025 Social Isolation Answer Date Recorded How often do you feel lonely or isolated from th ose around you? Never 02/05/2025 Food Risk Answer Date Recorded Within the past 12 months we worried whether our food would run out before we got money to buy more. Never true 02/05/2025 Within the past 12 months th e food we bought just didn't last and we didn't have money to get more. Never true 02/05/2025 Dependent Care Answer Date Recorded Do you need help finding or paying for care for your loved ones. For example, child and family counselor or elderly care for an older adult? No 02/05/2025 Education Answer Date Recorded Do you think completing more education or training, like finishing a GED, going to college, or learning a trade, would be helpful for you? N/A 02/05/2025 Employment and Income Answer Date Recor ded During the last four weeks, have you been actively looking for work? No 02/05/2025 Living Situation Answer Date Recorded What is your living situation? Unrecognized valu e 02/05/2025 Comments No Sex and Gender Information Value [...] N ot on file Not on file documented as of this encounter Last Filed Vital Signs Vital Sign Reading Time Taken Comments Blood Pressure 111/83 02/05/2025 11:40 AM EST Pulse 120 02/05/2025 11:40 AM EST will be rechecked Temperature 36.3 C (97.4 F) 02/05/2025 11:40 AM EST Respiratory Rate 16 02/05/2025 11:4 0 AM EST Oxygen Saturation 97% 02/05/2025 11: 40 AM EST Inhaled Oxygen Concentration - - Weight 137 kg (302 lb) 02/05/2025 11:40 AM EST Height 165.1 cm (5' 5 ) 02/05/2025 11:4 0 AM EST Body Mass Index 50.26 02/05/2025 11:40 AM EST documented in this encounter Progress Notes * oJyce Robertson [place] - 02/05/2025 11:30 AM EST Social Influencers of Health Who provided answers?: Self Within the past 12 months we worried whether our food would run out before we got money to buy more.: Never true Within the past 12 months the food we bought just didn't last and we didn't have money to get more.: Never true How hard is it for you to pay for the very basics like food, housing, medical care, and air conditioning / heating?: Not very hard Are you worried that in the next 2 months you may not have stable housing?: No Do you have access to a variety of food including fruits and vegetables?: Yes Has the lack of transportation kept you from meetings, work, or from getting things needed for daily living?: No Has the lack of transportation kept you from medical appointments or from getting medications?: No How often do you feel lonely or isolated from those around you?: Never How often do you need to have someone help you when you read instructions, pamphlets, or other written material from your doctor or pharmacy?: Never Depression Screening Will the patient answer the depression risk questions?: Yes Over the last 2 weeks, how often have you been bothered by little interest or pleasure in doing things?: Several days Over the last 2 weeks, how often have you been bothered by feeling down, depressed, or hopeless?: Nearly every day Depression Risk: 4 * MIGUEL ÁNGEL Salazar - 02/05/2025 11:30 AM EST CHIEF COMPLAINT: Mass (Neck left side towards back) IDENTIFIER: Zina Barber is a 39 y.o. old female who comes alone. HPI: 39 y/o F presents for evaluation of a lump on her left neck. States this has been present for months. She told her neurologist about it who told her to tell her PCP. So she presents for this urgent care visit today. No pain, fevers, chills, neck stiffness, ear pain, jaw pain, difficulty swallowing, or hair loss. No night sweats. Does report she wakes up in the middle of the night frequently with dyspnea and heart racing. She also feels confused when this happens. She feels like she has a hard time staying asleep. Apparently a home sleep study last year was normal. ROS: See HPI PAST MEDICAL HISTORY: Patient Active Problem List Diagnosis Date Noted Bilateral tinnitus 07/02/2024 Referred otalgia of right ear 07/02/2024 Chronic gastric ulcer with obstruction 01/08/2024 Kidney stones 01/08/2024 Moderate asthma 01/08/2024 Family history of cancer 01/08/2024 Hx of splenomegaly 01/08/2024 Hx of Helicobacter infection 01/08/2024 Morbid obesity with BMI of 45.0-49.9, adult (CMS/HCC V24, CMS/HCC V28) 01/08/2024 Benign paroxysmal positional vertigo 03/28/2023 Bilateral impacted cerumen 03/28/2023 Hiatal hernia 08/18/2022 Degenerative disc disease, lumbar 08/20/2021 Snoring 12/29/2020 Gallstones 04/19/2019 Gastroesophageal reflux disease 04/19/2019 Lipoma of torso 04/19/2019 Migraine 12/12/2018 Atypical chest pain 07/28/2017 Dyslipidemia 07/03/2017 Allergic rhinitis 03/10/2015 Deviated nasal septum 03/05/2015 Nasal polyp, unspecified 03/05/2015 Hepatitis C antibody test positive 02/12/2014 Chronic headaches 02/11/2014 ADHD (attention deficit hyperactivity disorder) 02/11/2014 Anxiety 02/11/2014 OCD (obsessive compulsive disorder) 02/11/2014 Tenosynovitis, de Quervain 02/11/2014 Dyshidrotic eczema 02/11/2014 ACTIVE MEDICATIONS: Medications Taking[1] ALLERGIES: Current Allergies[2] PHYSICAL EXAM: Visit Vitals BP 111/83 Pulse (!) 120 Comment: will be rechecked Temp 36.3 ??C (97.4 ??F) (Temporal) Resp 16 Ht 1.651 m (65 ) Wt 137 kg (302 lb) LMP 01/29/2025 (Exact Date) SpO2 97% BMI 50.26 kg/m?? OB Status Having periods Smoking Status Never BSA 2.36 m?? APPEARANCE: Alert and in no acute distress HEART: Tachycardic. normal S1 and S2, no murmurs LUNG: clear to auscultation EXTREMITIES: Extremities warm and well perfused without clubbing, cyanosis, or edema SKIN: Skin color, texture, turgor normal. No rashes or lesions. PSYCH: Stable mood and affect. Nonpressured speech. IMPRESSION: 1. Lymphadenopathy, occipital 2. Racing heart beat 3. Sleep difficulties PLAN: Isolated left occipital lymphadenopathy. Exam shows mobile, soft, well defined lymph node. Discussed with patient monitoring for next 1-2 months for any size change (there has been non thus far). Discussed need for immediate follow up with any growth or change in texture or borders. Discussed need for follow up with PCP in April if persistent with possible option for US and biopsy/consult. She agreed with the above plan. Racing heart beat and waking up from sleep at night. ? ARSENIO. Pt did have normal sleep study. I saw one from 2020 but she says she had another 1.5 years ago. Will start with ECG. Likely return referralto sleep medicine. TSH was normal 5 months ago. Will check CBC, CMP, tsh, and mag. Patient does report she has been anxious due to financial stress. She feels this may be related. I do have elevated suspicion for ARSENIO so I referred her to sleep medicine. No SI or HI. My colleagues and I have maintained a longitudinal relationship with this patient and serve as a focal point of their care. Orders Placed This Encounter Procedures CBC and differential Comprehensive metabolic panel Thyroid stimulating hormone Magnesium ECG 12 lead ADDITIONAL ORDERS: None Today's documentation was made using voice recognition software.This note may contain grammatical errors secondary to this software. MIGUEL ÁNGEL Salazar on 02/05/2025 at 12:01 PM EST [1] Outpatient Medications Marked as Taking for the 02/05/25 encounter (Office Visit) with MIGUEL ÁNGEL Salazar Medication Sig Dispense Refill acetaminophen (TYLENOL) 325 mg tablet TAKE 1 TABLET BY MOUTH EVERY 4 HOURS NEEDED FOR PAIN 360 tablet 0 biotin 5 mg capsule Take 1 capsule by mouth once daily 30 capsule 4 cetirizine (ZyrTEC) 10 mg tablet Take 2 tablets (20 mg total) by mouth 1 (one) time each day if needed for allergies or rhinitis. 90 tablet 3 cholecalciferol (VITAMIN D-3) 50 mcg (2,000 unit) tablet Take 1 tablet by mouth once daily 90 tablet 1 clobetasoL (TEMOVATE) 0.05 % topical solution clotrimazole (LOTRIMIN) 1 % cream APPLY 1 APPLICATION OF CREAM TOPICALLY ONCE DAILY TO AFFECTED AREA/SKIN FOLDS diphenhydrAMINE (BENADRYL) 25 mg capsule Take 1 capsule (25 mg total) by mouth every 6 (six) hours if needed for allergies. (TAKE 1-2 TABLETS WITH ALLERGY REACTIONS). doxycycline (ADOXA) 100 mg tablet Take 1 tablet (100 mg total) by mouth 2 (two) times a day. for 10days EPINEPHrine (EPIPEN) 0.3 mg/0.3 mL injection INJECT CONTENTS OF 1 PEN INTRAMUSCULARLY NEEDED FORALLERGIC REACTION 2 each 0 famotidine (PEPCID) 40 mg tablet Take 1 tablet by mouth twice daily 180 tablet 0 ferrous gluconate (FERGON) 324 mg (38 mg iron) tablet Take 1 tablet (324 mg total) by mouth 1 (one)time each day. fluticasone propion-salmeteroL (ADVAIR HFA) 230-21 mcg/actuation inhaler [...] by mouth once daily 90 tablet 1 ibuprofen (ADVIL,MOTRIN) 100 mg/5 mL suspension Take 20 mL (400 mg total) by mouth every 8 (eight) hours if needed for mild pain. 1800 mL 1 ketoconazole (NIZORAL) 2 % shampoo APPLY SHAMPOO TOPICALLY TO SCALP 2 TO 3 TIMES A WEEK, LEAVE ON FOR 5 MINUTES THEN RINSE OFF magnesium glycinate 100 mg magnesium capsule Take 200 mg (2 capsules total) by mouth 2 (two) times a day. meclizine (ANTIVERT) 25 mg tablet Take 1 tablet (25 mg total) by mouth 3 (three) times a day if needed for dizziness. 30 tablet 5 multivitamin (Tab-A-Meri) tablet Take 1 tablet by mouth once daily 90 tablet 1 Nasal Lipan, sodium chloride, 0.65 % nasal spray USE 1 DOSE IN EACH NOSTRIL 4 TIMES DAILY NEEDEDFOR CONGESTION 44 mL 2 ondansetron ODT (ZOFRAN-ODT) 4 mg disintegrating tablet DISSOLVE 1 TABLET IN MOUTH EVERY 6 HOURS ASNEEDED FOR NAUSEA AND VOMITING psyllium (METAMUCIL) 0.4 gram capsule Take 2 capsules (800 mg total) by mouth 1 (one) time each day. 180 capsule 3 riboflavin (VITAMIN B2) 100 mg tablet TAKE 4 TABLETS BY MOUTH ONCE DAILY 360 tablet 0 senna (Senokot) 8.6 mg tablet Take 2 tablets (17.2 mg total) by mouth 1 (one) time each day. 180 each 3 SUMAtriptan (IMITREX) 100 mg tablet TAKE ONE-HALF TO ONE TABLET BY MOUTH NEEDED AT ONSET OF HEADACHE. MAY REPEAT IN 2 HOURS NEEDED. MAX 2 TABLETS PER DAY OR 4 TABLETS A WEEK. (MAY TAKE WITH IBUPROFEN). Ventolin HFA 90 mcg/actuation inhaler Inhale 2 puffs by mouth every 4 (four) hours if needed for wheezing. 36 g 2 [2] Allergies Allergen Reactions Amoxicillin-Pot Clavulanate Other Reaction(s): Numbness, tingling or swelling of the lips, tongue or mouth Cefaclor Clindamycin Itching Lemon Flavor Macrolide Antibiotics Methylisothiazolinone Other TESTED POSITIVE BY CHIEF OPHTHALMIC TECHNICIAN Peanut CHIEF OPHTHALMIC TECHNICIAN TESTED POSITIVE [place] documented in this encounter Plan of Treatment Upcoming Encounters Date Type Department Care Team (Late st Contact Info) Description 02/12/2025 8:00 AM EST Treatment [facility] [address] [phone] Dickson Conde, PT 02/12/2025 10:45 AM EST Office Visit Orthopedic Surgery [facility] [address] [facility] [address] [place] [phone] Jonatan Marie DPM 175 [facility] [address] [place] [phone] 02/14/2025 8:00 AM EST Treatment [facility] [address] [phone] Dickson Conde, PT 02/26/2025 8:30 AM EST Consult Vascular Surgery [facility] 300 [facility] [address] [place] [phone] Joselyn Mccann MD [address] [place] [phone] 03/18/2025 1:30 PM EST Consult [facility] 175 [facility] [address] [place] [phone] Heather Roldan PA [address] [place] [phone] 04/29/2025 11:15 AM EST Office Visit Bariatric Surgery [facility] 175 [facility] [address] [place] [phone] Daisy Dan MD [address] [place] [phone] 04/30/2025 11:00 AM EST Office Visit Adult Medicine [facility] [address] [place] [address] Karin Clemente MD [address] [place], [place] 01/21/2026 11:20 AM EDT Office Visit Gastroenterology - 299 [facility] 299 [facility] [address] [place] [phone] Amelia Garcia NP 299 [facility] [address] [place] [address] Scheduled Referrals Name Type Priority Associated Diagnoses Orde r Schedule Ambulatory referral to Sleep Medicine Outpatient Referral Routine Racing heart beat Sleep difficulties 1 Occurrences starting 02/05/2025 until 02/05/2026 documented as of this encounter Procedures Procedure Name Priority Date/Time Associated Diagnosis Comments ECG 12-LEAD Routine 02/05/2025 12:13 PM EST Racing heart beat Sleep difficulties documented in this encounter Results * Magnesium (02/05/2025 12:24 PM EST) [facility] Magnesium 2.1 1.9 - 2.6 mg/dL LAB CHEMISTRY METHOD 02/05/2025 5:13 PM EST [facility] Blood Venous blood specimen / Unknown Venipuncture / Unknown 02/05/2025 12:24 PM EST 02/05/2025 12:24 PM EST us Jeromy DE LROSARIO LAB BLOOD ORDERABLES Fin al Result [facility] [address] [place] [address], [place] [phone] * Thyroid stimulating hormone (02/05/2025 12:24 PM EST) TSH 3.23 0.40 - 4.00 mcIU/mL LAB CHEMISTRY METHOD 02/05/2025 5:54 PM [facility] Blood Venous blood specimen / Unknown Venipuncture / Unknown 02/05/2025 12:24 PM EST 02/05/2025 12:24 PM EST us Jeromy DEL ROSARIO LAB BLOOD ORDERABLES Fin al Result [facility] [address] [place] [address], [place] [phone] * Comprehensive metabolic panel (02/05/2025 12:24 PM EST) Sodium 138 133 - 145 mmol/L LAB CHEMISTRY METHOD 02/05/2025 5:13 PM [facility] Potassium 4.2 3.5 - 5.5 mmol/L LAB CHEMISTRY METHOD 02/05/2025 5:13 PM [facility] Chloride 104 96 - 110 mmol/L LAB CHEMISTRY METHOD 02/05/2025 5:13 PM [facility] CO2 30 21 - 32 mmol/L LAB CHEMISTRY METHOD 02/05/2025 5:13 PM [facility] Anion Gap 4 3 - 11 LAB CHEMISTRY METHOD 02/05/2025 5:13 PM [facility] Glucose 92 70 - 100 mg/dL LAB CHEMISTRY METHOD 02/05/2025 5:13 PM [facility] BUN 9 5 - 25 mg/dL LAB CHEMISTRY METHOD 02/05/2025 5:13 PM [facility] Creatinine 0.84 0.50 - 1.10 mg/dL LAB CHEMISTRY METHOD 02/05/2025 5:13 PM [facility] eGFR 90 >=60 mL/min/1. 73m2 LAB CHEMISTRY METHOD 02/05/2025 5:13 PM [facility] Comment:Calculation based on the Chronic Kidney Disease Epidemiology Collaboration (CKD-EPI) equation refit without adjustment for race. BUN/Creatinine Ratio 10.7 LAB CHEMISTRY METHOD 02/05/2025 5:13 PM [facility] Calcium 9.2 8.5 - 10.5 mg/dL LAB CHEMISTRY METHOD 02/05/2025 5:13 PM [facility] AST (SGOT) 21 10 - 42 unit/L LAB CHEMISTRY METHOD 02/05/2025 5:13 PM [facility] ALT (SGPT) 31 10 - 60 unit/L LAB CHEMISTRY METHOD 02/05/2025 5:13 PM [facility] Alkaline Phosphatase 95 42 - 121 unit/L LAB CHEMISTRY METHOD 02/05/2025 5:13 PM [facility] Total Protein 7.0 6.0 - 8.0 g/dL LAB CHEMISTRY METHOD 02/05/2025 5:13 PM [facility] Albumin 3.7 3.2 - 5.0 g/dL LAB CHEMISTRY METHOD 02/05/2025 5:13 PM [facility] Total Bilirubin 0.4 0.0 - 1.4 mg/dL LAB CHEMISTRY METHOD 02/05/2025 5:13 PM [facility] Blood Venous blood specimen / Unknown Venipuncture / Unknown 02/05/2025 12:24 PM EST 02/05/2025 12:24 PM EST us Jeromy DEL ROSARIO LAB BLOOD ORDERABLES Fin al Result [facility] [address] [place] [address], * ECG 12 lead (02/05/2025 12:13 PM EST) Narrative Jeromy José PA - 02/05/2025 12:13 PM EST Sinus tachycardia. No acute ST changes Jeromy DEL ROSARIO ECG ORDERABLES Final Re sult documented in this encounter Visit Diagnoses Diagnosis Lymphadenopathy, occipital- Primary Racing heart beat Unspecified tachycardia Sleep difficulties documented in this encounter Discontinued Medications Medication Sig Discontinue Reason Start Date End Da te fluocinolone and shower cap 0.01 % oil APPLY OIL TOPICALLY TO SCALP AT BEDTIME NEEDED FOR FLARES Allergic response 12/29/2024 02/05/2025 documented as of this encounter Historical Medications * This list may reflect changes made after this encounter. ketoconazole (NIZORAL) 2 % shampoo APPLY SHAMPOO TOPICALLY TO SCALP 2 TO 3 TIMES A WEEK, LEAVE ON FOR 5 MINUTES THEN RINSE OFF 01/29/2025 doxycycline (ADOXA) 100 mg tablet Take 1 tablet (100 mg total) by mouth 2 (two) times a day. for 10 days 01/31/2025 clobetasoL (TEMOVATE) 0.05 % topical solution 02/04/2025 added in this encounter Additional Health Concerns Assessment Noted Time PHQ-9 Depression Total Score: 15 025 11:37 AM EST documented as of this encounter Care Teams Corporate Giving Manager Relationship Specialty Start Date End Date Karin Clemente MD [address] [place] [phone] PCP - General Internal Medicine 01/23/24 documented as of this encounter
--- OUTSIDE RECORDS SUMMARY | 2025-02-05 12:20 | XMS_ITS | Encounter Summary ---
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 For example, children's lunchroom supervisor or elderly care for an older adult? [...] as of this encounter Plan of Treatment Upcoming Encounters Date Type Department Care Team (Late st Contact Info) Description 02/12/2025 8:00 AM EST Treatment [facility] [place] [address] [facility] [address] [place] [address] Dickson Conde, PT 02/12/2025 10:45 AM EST Office Visit [facility] [place] 250 175 [facility] [address] [place] [address] Jonatan Marie, DPM [address] [facility] [address] [place] [phone] 02/14/2025 8:00 AM EST Treatment [facility] [place] [address] [facility] [address] [place] [phone] Dickson Conde, PT 02/26/2025 8:30 AM EST Consult V[facility] [place] [address] [place] [phone] Joselyn Mccann MD [address] [place] [phone] 03/18/2025 1:30 PM EST Consult [facility] [place] 175 [facility] [address] [place] [phone] Heather Roldan, PA [address] [place] [phone] 04/29/2025 11:15 AM EST Office Visit Bariatric Surgery - [place] 175 [facility] [address] [place] [phone] Daisy Dan MD [address] [place] [phone] 04/30/2025 11:00 AM EST Office Visit Adult Medicine [address] [phone] Karin Clemente MD [address] [place] [address] 01/21/2026 11:20 AM EDT Office Visit Gastroenterology - 299 [facility] 299 [facility] [address] [place] [address] Amelia Garcia, ES 299 [facility] [address] [place] [address] (work) documented as of this encounter Procedures Procedure Name Priority Date/Time Associated Diagnosis Comments CBC WITH AUTO DIFFERENTIAL Routine 02/05/2025 12:24 PM EST Lymphadenopathy, occipital Racing heart beat Sleep difficulties CBC AND DIFFERENTIAL Routine 02/05/2025 12:24 PM EST Lymphadenopathy, occipital Racing heart beat Sleep difficulties THYROID STIMULATING HORMONE Routine 02/05/2025 12:24 PM EST Lymphadenopathy, occipital Racing heart beat Sleep difficulties MAGNESIUM Routine 02/05/2025 12:24 PM EST Lymphadenopathy, occipital Racing heart beat Sleep difficulties COMPREHENSIVE METABOLIC PANEL Routine 02/05/2025 12:24 PM EST Lymphadenopathy, occipital Racing heart beat Sleep difficulties documented in this encounter Results * (ABNORMAL) CBC auto differential (02/05/2025 12:24 PM EST) WBC 7.7 4.8 - 10.8 K/mcL LAB HEMETOLOGY METHOD 02/05/2025 3:22 PM [facility] RBC 4.90(H) 3.80 - 4.80 M/mcL LAB HEMETOLOGY METHOD 02/05/2025 3:22 PM [facility] Hemoglobin 12.8 11.5 - 16.0 g/dL LAB HEMETOLOGY METHOD 02/05/2025 3:22 PM [facility] Hematocrit 41.4 35.0 - 47.0 % LAB HEMETOLOGY METHOD 02/05/2025 3:22 PM [facility] MCV 84.7 79.0 - 98.0 FL LAB HEMETOLOGY METHOD 02/05/2025 3:22 PM [facility] MCH 26.2(L) 27.0 - 32.0 pcg LAB HEMETOLOGY METHOD 02/05/2025 3:22 PM [facility] MCHC 30.9(L) 32.0 - 37.0 g/dL LAB HEMETOLOGY METHOD 02/05/2025 3:22 PM [facility] RDW 13.8 11.0 - 15.0 % LAB HEMETOLOGY METHOD 02/05/2025 3:22 PM [facility] Platelets 254 130 - 400 K/mcL LAB HEMETOLOGY METHOD 02/05/2025 3:22 PM [facility] MPV 10.9 7.0 - 11.0 FL LAB HEMETOLOGY METHOD 02/05/2025 3:22 PM [facility] NRBC 0.0 <1.0 % LAB HEMETOLOGY METHOD 02/05/2025 3:22 PM [facility] NRBC Absolute 0.00 <0.10 K/mcL LAB HEMETOLOGY METHOD 02/05/2025 3:22 PM [facility] Neutrophils Relative 63.3 % LAB HEMETOLOGY METHOD 02/05/2025 3:22 PM [facility] Lymphocytes Relative 27.0 % LAB HEMETOLOGY METHOD 02/05/2025 3:22 PM [facility] Monocytes Relative 6.3 % LAB HEMETOLOGY METHOD 02/05/2025 3:22 PM [facility] Eosinophils Relative 2.1 % LAB HEMETOLOGY METHOD 02/05/2025 3:22 PM [facility] Basophils Relative 0.9 % LAB HEMETOLOGY METHOD 02/05/2025 3:22 PM [facility] Immature Granulocytes Relative 0.4 % LAB HEMETOLOGY METHOD 02/05/2025 3:22 PM [facility] Neutrophils Absolute 4.86 1.50 - 7.00 K/mcL LAB HEMETOLOGY METHOD 02/05/2025 3:22 PM [facility] Lymphocytes Absolute 2.07 1.00 - 5.00 K/mcL LAB HEMETOLOGY METHOD 02/05/2025 3:22 PM EST [facility] Monocytes Absolute 0.48 0.20 - 1.00 K/[facility] LAB HEMETOLOGY METHOD 02/05/2025 3:22 PM [facility] Eosinophils Absolute 0.16 0.00 - 0.50 K/[facility] LAB HEMETOLOGY METHOD 02/05/2025 3:22 PM EST [facility] Basophils Absolute 0.07 0.00 - 0.20 K/[facility] LAB HEMETOLOGY METHOD 02/05/2025 3:22 PM [facility] Immature Granulocytes Absolute 0.03 0.00 - 0.03 K/[facility] LAB HEMETOLOGY METHOD 02/05/2025 3:22 PM [facility] Blood Venous blood specimen / Unknown Venipuncture / Unknown 02/05/2025 12:24 PM EST 02/05/2025 12:24 PM EST us Jeromy DEL ROSARIO LAB BLOOD ORDERABLES Fin al Result [facility] [address] [place] [address], * Comprehensive metabolic panel (02/05/2025 12:24 PM EST) Sodium 138 133 - 145 mmol/L LAB CHEMISTRY METHOD 02/05/2025 5:13 PM [facility] Potassium 4.2 3.5 - 5.5 mmol/L LAB CHEMISTRY METHOD 02/05/2025 5:13 PM [facility] Chloride 104 96 - 110 mmol/L LAB CHEMISTRY METHOD 02/05/2025 5:13 PM [facility] CO2 30 21 - 32 mmol/L LAB CHEMISTRY METHOD 02/05/2025 5:13 PM [facility] Anion Gap 4 3 - 11 LAB CHEMISTRY METHOD 02/05/2025 5:13 PM [facility] Glucose 92 70 - 100 mg/dL LAB CHEMISTRY METHOD 02/05/2025 5:13 PM [facility] BUN 9 5 - 25 mg/dL LAB CHEMISTRY METHOD 02/05/2025 5:13 PM [facility] Creatinine 0.84 0.50 - 1.10 mg/dL LAB CHEMISTRY METHOD 02/05/2025 5:13 PM [facility] eGFR 90 >=60 mL/min/1. 73m2 LAB CHEMISTRY METHOD 02/05/2025 5:13 PM [facility] Comment:Calculation based on the Chronic Kidney Disease Epidemiology Collaboration (CKD-EPI) equation refit without adjustment for race. BUN/Creatinine Ratio 10.7 LAB CHEMISTRY METHOD 02/05/2025 5:13 PM [facility] Calcium 9.2 8.5 - 10.5 mg/dL LAB CHEMISTRY METHOD 02/05/2025 5:13 PM [facility] AST (SGOT) 21 10 - 42 unit/L LAB CHEMISTRY METHOD 02/05/2025 5:13 PM [facility] ALT (SGPT) 31 10 - 60 unit/L LAB CHEMISTRY METHOD 02/05/2025 5:13 PM [facility] Alkaline Phosphatase 95 42 - 121 unit/L LAB CHEMISTRY METHOD 02/05/2025 5:13 PM [facility] Total Protein 7.0 6.0 - 8.0 g/dL LAB CHEMISTRY METHOD 02/05/2025 5:13 PM [facility] Albumin 3.7 3.2 - 5.0 g/dL LAB CHEMISTRY METHOD 02/05/2025 5:13 PM [facility] Total Bilirubin 0.4 0.0 - 1.4 mg/dL LAB CHEMISTRY METHOD 02/05/2025 5:13 PM [facility] Blood Venous blood specimen / Unknown Venipuncture / Unknown 02/05/2025 12:24 PM EST 02/05/2025 12:24 PM EST us Jeromy DEL ROSARIO LAB BLOOD ORDERABLES Fin al Result Performing Organization Address [facility] Co de Phone Number [facility] [address] [place] [address], [place] [phone] * Thyroid stimulating hormone (02/05/2025 12:24 PM EST) TSH 3.23 0.40 - 4.00 mcIU/mL LAB CHEMISTRY METHOD 02/05/2025 5:54 PM EST [facility] Blood Venous blood specimen / Unknown Venipuncture / Unknown 02/05/2025 12:24 PM EST 02/05/2025 12:24 PM EST Jeromy DEL ROSARIO LAB BLOOD ORDERABLES Fin al Result Performing Organization Address [facility] Phone Number [facility] [address] [place] [address], [place] [phone] * Magnesium (02/05/2025 12:24 PM EST) [facility] Magnesium 2.1 1.9 - 2.6 mg/dL LAB CHEMISTRY METHOD 02/05/2025 5:13 PM EST [facility] Blood Venous blood specimen / Unknown Venipuncture / Unknown 02/05/2025 12:24 PM EST 02/05/2025 12:24 PM EST us Jeromy DEL ROSARIO LAB BLOOD ORDERABLES Fin al Result Performing Organization Address [facility] Co de Phone Number [facility] [address] [place] [address], [place] [phone] documented in this encounter Visit Diagnoses Diagnosis Lymphadenopathy, occipital Racing heart beat Unspecified tachycardia Sleep difficulties documented in this encounter Additional Health Concerns Assessment Noted Time PHQ-9 Depression Total Score: 15 025 11:37 AM EST documented as of this encounter Care Teams Regrind Mill Operator Relationship Specialty Start Date End Date Karin Clemente MD [address] [place] [phone] PCP - General Internal Medicine 01/23/24 documented as of this encounter
--- NOTE | 2025-02-05 19:59 | ECG_ITS ---
Test Reason : chest pain Blood Pressure : */* mmHG Vent. Rate : 116 BPM Atrial Rate : 116 BPM P-R Int : 156 ms QRS Dur : 76 ms QT Int : 324 ms P-R-T Axes : 51 34 35 degrees QTcB Int : 450 ms Sinus tachycardia Otherwise normal ECG When compared with ECG of 30-Nov-2024 19:55, No significant change was found Referred By: Generic ED Physician Electronically Signed By: Jose Ladd
[2025-02-05 20:10] VITALS: BP 133/71; PULSE 112; RESP 20; TEMP 36.4; O2SAT 96; BMI 50.2
[2025-02-05 21:39] LABS: MANUAL DIFF FLAG NO
[2025-02-05 21:40] LABS: Hematocrit 41.5 % (37.0-47.0); Hemoglobin 13.2 g/dl (12.0-16.0); Imm Gran Abs Auto 0.03 X10*3/uL (0.00-0.03); Imm Gran Pct Auto 0.3 % (0.0-0.4); Lymphocytes Absolute Auto 2.8 X10*3/uL (1.2-4.9); Mean Corpuscular HGB Conc 31.8 g/dl (31.0-35.0); Mean Corpuscular Hemoglobin 26.0 pg (27.0-33.0); Mean Corpuscular Volume 81.7 fL (80.0-98.0); NRBC Abs Auto 0.000 X10*3/uL (0.0-0.012); NRBC Pct Auto 0.0 /100WBC (0.0-0.2); Platelet Count 254 X10*3/uL (160-400); Red Blood Count 5.08 X10*6/uL (4.20-5.50); White Blood Count 9.9 X10*3/uL (4.8-10.8)
[2025-02-05 21:41] LABS: Appearance Urine Clear; Glucose Urine UA Negative (Negative); PH 6.5 (5.0-9.0); Specific Gravity - Urine 1.015 (1.005-1.025)
[2025-02-05 21:44] LABS: UPreg QC Valid YES
[2025-02-05 21:55] LABS: Alanine Aminotransferase 24 U/L (0-31); Albumin Level 4.4 g/dL (3.5-5.0); Alkaline Phosphatase 85 U/L (39-117); Anion Gap 13 (12-20); Aspartate Amino Transferase 25 U/L (5-31); Blood Urea Nitrogen 10 mg/dL (9-16); Calcium 9.3 mg/dL (8.4-10.2); Carbon Dioxide 24 mmol/L (22-29); Chloride 107 mmol/L (96-108); Creatinine Clr Calc Pharmacy 134.6; Estimated Glomerular Filt Rate > 60; Potassium 3.8 mmol/L (3.3-5.1); Sodium 140 mmol/L (135-145); Total Protein 7.5 g/dL (6.5-8.0)
[2025-02-05 22:05] LABS: Troponin-I High Sensitivity < 2.7 ng/L (<3.5-17.0)
--- NOTE | 2025-02-06 00:40 | ED.CHESTPAIN ---
HPI - Chest Pain General Chief Complaint: Chest Pain Stated Complaint: palpitations / chest pain, anxiety Time Seen by Provider: 02/06/25 00:39 Source: patient Mode of arrival: ambulatory Limitations: no limitations History of Present Illness ED Provider: Cipriano DEL ROSARIO HPI narrative: The patient is a 39-year-old female with a history of PVD, IBS, GERD, hyperlipidemia, hepatitis-C, morbid obesity, and OCD, presenting to the ED for evaluation of increased heart rate and palpitations. The patient reports she is currently being treated with doxycycline for a ingrown hair in her pelvis, patient reports the area of ingrown hair is improving, however she has been experiencing some nausea without vomiting. The patient denies associated fever/chills, vomiting, diarrhea, shortness of breath, cough, pleurisy, hemoptysis, abdominal pain, dysuria, hematuria, or other acute somatic complaint. Patient reports she was at a doctor's office today at [facility] for evaluation of a chronic lump on the back of her neck, while there patient was found to have an elevated heart rate, labs were obtained and were unremarkable, however patient was advised to come to the ED if she developed any chest pain or racing heart palpitations. The patient reports upon returning home this afternoon she began experiencing nonexertional racing heart sensation, checked her heart rate with a pulse oximeter and found it to be elevated in the 130s, prompting ED evaluation. The patient denies any dizziness, near-syncope, syncope, or chest pain correlated with the palpitations, however patient does report intermittent episodes of chest pain throughout the day which are described as dull, but lasting less than 30 seconds and resolve without intervention. The patient denies any lower extremity complaints or recent travel. Related Data Home Medications ?Medication ?Instructions ?Recorded ?Confirmed cholecalciferol (vitamin D3) 50 50 mcg PO DAILY 05/07/21 01/07/25 mcg (2,000 unit) tablet fluticasone propionate 230 2 puff PO BID 05/07/21 01/07/25 mcg-salmeterol 21 mcg/actuation HFA inhaler (Advair HFA) folic acid 800 mcg tablet 0.8 mg PO DAILY 05/07/21 01/07/25 multivitamin with folic acid 400 1 tab PO DAILY 05/07/21 01/07/25 mcg tablet (Daily-Meri (with folic acid)) sodium chloride 0.65 % nasal spray spray intranasal 05/07/21 01/07/25 aerosol (Saline Nasal) diphenhydramine HCl 25 mg capsule 25 mg PO TID PRN 05/17/21 01/07/25 (Banophen) biotin 5 mg capsule 5 mg PO DAILY 08/20/21 01/07/25 cetirizine 10 mg tablet 20 mg PO DAILY PRN allergies 08/20/21 01/07/25 fluticasone propionate 50 2 spray intranasal DAILY PRN 09/10/21 01/07/25 mcg/actuation nasal spray,suspension acetaminophen 325 mg tablet 325 mg PO Q4H PRN pain 03/29/22 01/07/25 Previous Rx's ?Medication ?Instructions ?Recorded albuterol sulfate 2.5 mg/3 mL 2.5 mg (3 mL) inhalation Q4-6H PRN 11/07/20 (0.083 %) solution for nebulization bronchospasm #15 mL albuterol sulfate 90 mcg/actuation 2 puff inhalation Q4-6H PRN 11/07/20 aerosol inhaler shortness of breath or wheezing #6.7 grams docusate sodium 100 mg capsule 100 mg PO .DAILY WITH FOOD 30 days 05/06/22 (Colace) #30 caps dicyclomine 20 mg tablet 20 mg PO QID 30 days #120 tabs 11/15/22 benzonatate 200 mg capsule 200 mg PO TID 7 days #21 caps 05/15/23 Lactobacillus rhamnosus GG 10 1 cap PO DAILY #30 caps 08/29/23 billion cell capsule (Culturelle) Proctosol HC 2.5 % topical cream 1 appl [place] BID PRN hemorrhoids 08/29/23 perineal applicator #28.35 grams (hydrocortisone) famotidine 40 mg tablet 40 mg PO BID 90 days #180 tabs 08/29/23 cyclobenzaprine 5 mg tablet 5 mg PO TID PRN muscle spasm #14 09/15/23 tabs meclizine 25 mg tablet 25 mg PO TID PRN dizziness 30 days 12/19/23 #20 tabs methocarbamol 750 mg tablet 750 mg PO Q8H PRN pain, moderate 07/27/24 #12 tabs ferrous gluconate 324 mg (38 mg 324 mg PO DAILY 30 days #30 tabs 12/31/24 iron) tablet ondansetron 4 mg disintegrating 4 mg PO Q6H PRN nausea and 12/31/24 tablet vomiting 30 days #20 tabs ibuprofen 100 mg/5 mL oral 600 mg (30 mL) PO Q6H PRN pain 30 01/07/25 suspension (Children's Ibuprofen) days #473 mL magnesium glycinate 200 mg (2 x 100 mg magnesium) PO 01/07/25 BID 90 days #360 caps riboflavin (vitamin B2) 100 mg 400 mg (4 x 100 mg) PO DAILY 90 01/07/25 tablet (Vitamin B-2) days #360 tabs sumatriptan succinate 100 mg tablet 50 - 100 mg (0.5 - 1 x 100 mg) PO 01/07/25 .COMPLEX PRN migraine headache 30 days #12 tabs Allergies Allergy/AdvReac Type Severity Reaction Status Date / Time peanut (PEANUT) Allergy Severe ANAPHYLAXIS Verified 02/05/25 20:13 clindamycin (CLINDAMYCIN) Allergy Mild UNKNOWN Verified 02/05/25 20:13 strawberry Allergy Mild Abdominal Verified 02/05/25 20:13 Pain amoxicillin (From Augmentin) Allergy Unknown Unknown Verified 02/05/25 20:13 cefaclor (From CECLOR) Allergy Unknown UNKNOWN Verified 02/05/25 20:13 clavulanic acid (From Allergy Unknown Unknown Verified 02/05/25 20:13 Augmentin) erythromycin base Allergy Unknown RASH Verified 02/05/25 20:13 (ERYTHROMYCIN BASE) lemon (Lemon) AdvReac Unknown VOMITING Verified 02/05/25 20:13 SEAFOOD Allergy Severe ANAPHYLAXIS Uncoded 02/05/25 20:13 berries Allergy Unknown Unknown Uncoded 02/05/25 20:13 Review of Systems Review of Systems: Yes all other systems are reviewed and are negative [facility] Past Medical History Medical History Anxiety Asthma Surgical History Hx of tonsillectomy Family History Family History Father Heart disease Mother Migraine Heart disease Social History Social History Alcohol intake: never Patient Tobacco Use Status: Never used Tobacco Smoked in Last 30 Days: No Use of substances other than those prescribed or required for medical reasons: No Advance Directives: No Advance Directives Information Provided: Yes Physical Exam Vital Signs: Vital Signs: Last Vital Signs Temp 97.6 F 02/05/25 20:10 Pulse 84 02/06/25 02:31 Resp 16 02/06/25 02:31 BP 129/76 02/06/25 02:31 Pulse Ox 98 02/06/25 02:31 O2 Del Method Room Air 02/06/25 02:31 BMI result Body Mass Index 50.2 CONSTITUTIONAL: The patient appears non-toxic, well nourished and in no acute distress. Vital signs as documented. HEAD: Atraumatic, normocephalic. EYES: EOMs grossly intact, pupils equal, conjunctiva clear, no exudate. ENT: Nares patent, no discharge. Airway patent, no audible stridor, visible mucosa is pink and moist without noted lesions. NECK: Trachea is midline, no obvious masses or gross abnormalities. CHEST: Symmetric movement, normal appearance. LUNGS: LS present and CTAB, no w/r/r. Non-labored work of breathing. CARDIAC: Regular Rhythm, S1/S2 appreciated, no murmurs, rubs or gallops. ABDOMEN: Abdomen soft and non-tender x4 quadrants, no palpable masses or organomegaly. : Deferred. EXTREMITIES: Normal tone, moves all extremities spontaneously without reported pain. No obvious acute injury or deformity noted. NEURO: Alert and oriented x3, CN II-XII appear grossly intact. Cerebellar Functioning grossly intact. No obvious sensory or motor deficits. Speech clear and appropriate. PSYCH: normal affect, appropriate eye contact, fluid speech, with appropriate response to questioning. No reported suicidality or homicidality. SKIN: Warm, dry, color appropriate, normal turgor. No rashes noted. Medications Administered Discontinued Medications Generic Name Dose Route Start Last Admin Trade Name Freq PRN Reason Stop Dose Admin Sodium Chloride 1,000 mls @ 999 mls/hr 02/06/25 02:30 02/06/25 02:39 Ns IV 02/06/25 03:30 999 mls/hr .Q1H1M PHILIP Administration Medical Decision Making Medical Decision Making MDM Narrative: 2:24 AM 02/06/2025 (Samuel DEL ROSARIO): The patient is a 39-year-old female with a history of PVD, IBS, GERD, hyperlipidemia, hepatitis-C, morbid obesity, and OCD, presenting to the ED for evaluation of increased heart rate and palpitations. The patient reports she is currently being treated with doxycycline for a ingrown hair in her pelvis, patient reports the area of ingrown hair is improving, however she has been experiencing some nausea without vomiting. The patient denies associated fever/chills, vomiting, diarrhea, shortness of breath, cough, pleurisy, hemoptysis, abdominal pain, dysuria, hematuria, or other acute somatic complaint. Patient reports she was at a doctor's office today at [facility] for evaluation of a chronic lump on the back of her neck, while there patient was found to have an elevated heart rate, labs were obtained and were unremarkable, however patient was advised to come to the ED if she developed any chest pain or racing heart palpitations. The patient reports upon returning home this afternoon she began experiencing nonexertional racing heart sensation, checked her heart rate with a pulse oximeter and found it to be elevated in the 130s, prompting ED evaluation. The patient denies any dizziness, near-syncope, syncope, or chest pain correlated with the palpitations, however patient does report intermittent episodes of chest pain throughout the day which are described as dull, but lasting less than 30 seconds and resolve without intervention. The patient denies any lower extremity complaints or recent travel. The patient's exam is reassuring, no focal findings. The patient's EKG is nonischemic, troponin is negative. The patient's laboratory evaluation demonstrates no leukocytosis, anemia, electrolyte abnormality, or DEMI, LFTs are unremarkable. The patient's urinalysis is negative. The patient's heart rate improved by time of arrival in the ED, patient states she is not sure if she is ?coming down with something? or if elevated heart rate is secondary to recent financial stressors. Patient reports she does have a history of high heart rate and palpitations after the of her mother, denies any prn anxiolytics. At this time the patient's workup is reassuring, however given her tachycardia we are unable to rule out PE by PERC criteria, we will obtain D-dimer, repeat troponin, and add on influenza and COVID swabs. Additionally the patient reports feeling dry mouth, admits she did not eat or drink much today, the patient was offered p.o. fluids versus IV hydration, patient opted for IV hydration, we will provide IV fluid and reassess heart rate. 3:49 AM 02/06/2025 (Samuel DEL ROSARIO): Patient's repeat troponin is negative, D-dimer is negative, COVID and influenza swabs are negative. The patient may be suffering from anxiety versus a developing viral syndrome. The patient's heart rate has improved following IV fluid hydration. Patient reports she feels comfortable with plan for discharge home and outpatient follow up. At this time there is no indication for admission or continued observation, patient will be discharged with supportive care. Admission/Observation Consideration of admission/observation: Escalation of care including admission/observation considered Lab Data MDM Lab Attestation statement: I reviewed the patient's lab results. 02/05/25 21:33 02/05/25 21:33 Labs: Lab Results 02/05/25 02/05/25 02/06/25 Range/Units 21:33 21:34 02:34 WBC 9.9 (4.8-10.8) X10*3/uL RBC 5.08 (4.20-5.50) X10*6/uL Hgb 13.2 (12.0-16.0) g/dl Hct 41.5 (37.0-47.0) % MCV 81.7 (80.0-98.0) fL MCH 26.0 L (27.0-33.0) pg MCHC 31.8 (31.0-35.0) g/dl RDW 13.7 (11.0-16.0) % Plt Count 254 (160-400) X10*3/uL MPV 9.9 (9.4-12.3) fL Immature Gran % (Auto) 0.3 (0.0-0.4) % Neut % (Auto) 63.5 (45-73) % Lymph % (Auto) 28.5 (20-40) % [place] % (Auto) 5.6 (2-11) % Eos % (Auto) 1.6 (0-4) % Baso % (Auto) 0.5 (0-2) % Lymph # (Auto) 2.8 (1.2-4.9) X10*3/uL [place] # (Auto) 0.6 (0.1-1.2) X10*3/uL Eos # (Auto) 0.2 (0.0-0.4) X10*3/uL Baso # (Auto) 0.1 (0.0-0.2) X10*3/uL Abs Immat Gran (auto) 0.03 (0.00-0.03) X10*3/uL Absolute Neuts (auto) 6.3 (2.0-8.3) x10*3/uL Absolute Nucleated RBC 0.000 (0.0-0.012) X10*3/uL Nucleated RBC % (auto) 0.0 (0.0-0.2) /100WBC D-Dimer High Sensitivty NG/ML Sodium 140 (135-145) mmol/L Potassium 3.8 (3.3-5.1) mmol/L Chloride 107 (96-108) mmol/L Carbon Dioxide 24 (22-29) mmol/L Anion Gap 13 (12-20) BUN 10 (9-16) mg/dL Creatinine 0.78 (0.5-1.4) mg/dL Estim Creat Clear Calc 134.6 Estimated GFR > 60 Random Glucose 87 (60-115) mg/dL Calcium 9.3 (8.4-10.2) mg/dL Total Bilirubin 0.4 (0.0-1.0) mg/dL AST 25 (5-31) U/L ALT 24 (0-31) U/L Alkaline Phosphatase 85 (39-117) U/L Troponin I High Sens < 2.7 (<3.5-17.0) ng/L Total Protein 7.5 (6.5-8.0) g/dL Albumin 4.4 (3.5-5.0) g/dL Urine Color Yellow Urine Appearance Clear Urine pH 6.5 (5.0-9.0) Ur Specific [place] 1.015 (1.005-1.025) Urine Protein Negative (Neg-Trace) mg/dL Urine Glucose (UA) Negative (Negative) mg/dL Urine Ketones Negative (Negative) mg/dL Urine Blood Negative (Negative) Urine Nitrite Negative (Negative) Ur Leukocyte Esterase Negative (Negative) Urine Test NEGATIVE (NEGATIVE) COVID-19 (JENNIFER) Negative (Negative) COVID-19 Clin Com See Note Influenza Type A (MARK ANTHONY) Negative (Negative) Influenza Type B (MARK ANTHONY) Negative (Negative) Influenza A & B Note See Note 02/06/25 Range/Units 02:36 WBC (4.8-10.8) X10*3/uL RBC (4.20-5.50) X10*6/uL Hgb (12.0-16.0) g/dl Hct (37.0-47.0) % MCV (80.0-98.0) fL MCH (27.0-33.0) pg MCHC (31.0-35.0) g/dl RDW (11.0-16.0) % Plt Count (160-400) X10*3/uL MPV (9.4-12.3) fL Immature Gran % (Auto) (0.0-0.4) % Neut % (Auto) (45-73) % Lymph % (Auto) (20-40) % [place] % (Auto) (2-11) % Eos % (Auto) (0-4) % Baso % (Auto) (0-2) % Lymph # (Auto) (1.2-4.9) X10*3/uL [place] # (Auto) (0.1-1.2) X10*3/uL Eos # (Auto) (0.0-0.4) X10*3/uL Baso # (Auto) (0.0-0.2) X10*3/uL Abs Immat Gran (auto) (0.00-0.03) X10*3/uL Absolute Neuts (auto) (2.0-8.3) x10*3/uL Absolute Nucleated RBC (0.0-0.012) X10*3/uL Nucleated RBC % (auto) (0.0-0.2) /100WBC D-Dimer High Sensitivty 222 NG/ML Sodium (135-145) mmol/L Potassium (3.3-5.1) mmol/L Chloride (96-108) mmol/L Carbon Dioxide (22-29) mmol/L Anion Gap (12-20) BUN (9-16) mg/dL Creatinine (0.5-1.4) mg/dL Estim Creat Clear Calc Estimated GFR Random Glucose (60-115) mg/dL Calcium (8.4-10.2) mg/dL Total Bilirubin (0.0-1.0) mg/dL AST (5-31) U/L ALT (0-31) U/L Alkaline Phosphatase (39-117) U/L Troponin I High Sens < 2.7 (<3.5-17.0) ng/L Total Protein (6.5-8.0) g/dL Albumin (3.5-5.0) g/dL Urine Color Urine Appearance Urine pH (5.0-9.0) Ur Specific [place] (1.005-1.025) Urine Protein (Neg-Trace) mg/dL Urine Glucose (UA) (Negative) mg/dL Urine Ketones (Negative) mg/dL Urine Blood (Negative) Urine Nitrite (Negative) Ur Leukocyte Esterase (Negative) Urine Test (NEGATIVE) COVID-19 (JENNIFER) (Negative) COVID-19 Clin Com Influenza Type A (MARK ANTHONY) (Negative) Influenza Type B (MARK ANTHONY) (Negative) Influenza A & B Note External Record Review External record reviewed: Outpatient record and Prior outpatient labs Discharge Plan Discharge Clinical Impression: Palpitations Patient Disposition: Home, Self-Care Instructions: Heart Palpitations (ED) Additional Instructions: Thank you for choosing [facility] Emergency Department for your care today. Thankfully your laboratory evaluation, EKG, viral swabs, and exam today are reassuring. There is currently no evidence of an acute cardiac, coagulopathic (blood clot), anemic, metabolic, bacterial, or other dangerous cause for your palpitations. At this time there is no indication for admission to the hospital or continued ED observation, and it is safe to discharge you home. Your heart rate improved following IV fluid hydration. It is not entirely clear what is causing your elevated heart rate and palpitations. You may be developing a viral illness, or your symptoms are being caused by increased stress levels. Please stay well hydrated and get plenty of rest. Please follow up with your primary care physician for re-evaluation, additional management of your symptoms, and continued preventative care. If you do not have a primary care physician, please call the [facility] at [phone] to establish a new primary care physician. While waiting to establish your new primary care physician, you can call our Walk-in Care [facility] at [phone] for non-emergency needs. Please return to the emergency department if you develop a severe or sudden change in your symptoms, a fever over 100.4 that does not improve with Tylenol or Ibuprofen, recurrent vomiting, or any other new or worsening symptoms or concerns. Prescriptions: No Action docusate sodium [Colace] 100 mg capsule 100 mg PO .DAILY WITH FOOD 30 Days Qty: 30 6RF ondansetron 4 mg tablet,disintegrating 4 mg PO Q6H PRN (Reason: nausea and vomiting) 30 Days Qty: 20 3RF ferrous gluconate 324 mg (38 mg iron) tablet 324 mg PO DAILY 30 Days Qty: 30 3RF albuterol sulfate 2.5 mg /3 mL (0.083 %) solution for nebulization 2.5 mg inhalation Q4-6H PRN (Reason: bronchospasm) Qty: 15 0RF albuterol sulfate 90 mcg/actuation HFA aerosol inhaler 2 puff inhalation Q4-6H PRN (Reason: shortness of breath or wheezing) Qty: 6.7 0RF benzonatate 200 mg capsule 200 mg PO TID 7 Days Qty: 21 0RF cyclobenzaprine 5 mg tablet 5 mg PO TID PRN (Reason: muscle spasm) Qty: 14 0RF methocarbamol 750 mg tablet 750 mg PO Q8H PRN (Reason: pain, moderate) Qty: 12 0RF diphenhydramine HCl [Banophen] 25 mg capsule 25 mg PO TID PRN biotin 5 mg capsule 5 mg PO DAILY cetirizine 10 mg tablet 20 mg PO DAILY PRN (Reason: allergies) fluticasone propionate 50 mcg/actuation spray,suspension 2 spray intranasal DAILY PRN acetaminophen 325 mg tablet 325 mg PO Q4H PRN (Reason: pain) dicyclomine 20 mg tablet 20 mg PO QID 30 Days Qty: 120 1RF cholecalciferol (vitamin D3) 50 mcg (2,000 unit) tablet 50 mcg PO DAILY Advair HFA 230-21 mcg/actuation HFA aerosol inhaler 2 puff PO BID Saline Nasal 0.65 % aerosol,spray intranasal folic acid 800 mcg tablet 0.8 mg PO DAILY multivitamin with folic acid [Daily-Meri (with folic acid)] 400 mcg tablet 1 tab PO DAILY magnesium glycinate 100 mg magnesium capsule 200 mg PO BID 90 Days Qty: 360 3RF riboflavin (vitamin B2) [Vitamin B-2] 100 mg tablet 400 mg PO DAILY 90 Days Qty: 360 3RF sumatriptan succinate 100 mg tablet 50 - 100 mg PO .COMPLEX PRN (Reason: migraine headache) 30 Days Qty: 12 6RF Rx Instructions: 50 - 100 mg orally at onset of headache, may repeat in 2 hrs PRN; max 2 tabs per day or 4 tabs/week (may take with Ibuprofen) ibuprofen [Children's Ibuprofen] 100 mg/5 mL suspension 600 mg PO Q6H PRN (Reason: pain) 30 Days Qty: 473 3RF Rx Instructions: (avoid Maurice flavor d/t maurice allergy) Culturelle 10 billion cell capsule 1 cap PO DAILY Qty: 30 6RF famotidine 40 mg tablet 40 mg PO BID 90 Days Qty: 180 1RF hydrocortisone [Proctosol HC] 2.5 % cream with perineal applicator 1 appl [place] BID PRN (Reason: hemorrhoids) Qty: 28.35 3RF meclizine 25 mg tablet 25 mg PO TID PRN (Reason: dizziness) 30 Days Qty: 20 3RF Referrals: Karin Clemente MD [Primary Care Provider, Internal Medicine] Clinical Impression: Palpitations Print Language: Burmese
--- OUTSIDE RECORDS SUMMARY | 2025-02-06 00:57 | XMS_ITS | Encounter Summary ---
Author Organization [facility] Address [address] [place] [address] Care Team Providers Care Lead Technical Writer Name Role Phone Karin Clemente MD Primary Care Provider [phone] Reason for Visit * Reason Onset Date Comments Immunizations 01/22/2025 Encounter Details Date Type Department Care Team (Late st Contact Info) Description 01/22/2025 Telephone Obstetrics & Gynecology - [address] [phone] Cherie Wilkinson, [address] [address] Social History Tobacco Use Types Packs/Day Years [...] on file documented as of this encounter Progress Notes * Jessica Oquendo RN - 01/22/2025 3:02 PM EDT Patient had her physical with Cherie Wilkinson in September-would like to have testing for Hep c ordered-she was last tested in 2020 and was negative-but was seen at [facility] and she says they show it in her problem list-she is thoroughly confused- will have provider place order and pt can come to lab for testing. Stone how it on her problem list as well-she was + for antibodies in 2012 but I cannot pull up positive lab result even on old epic * Karolina Mejia - 01/22/2025 2:39 PM EDT Chief Complaint/problem: wants to know when Cherie Wilkinson last tested her for Hep B How long has the patient had this problem? 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: Last menstrual period (LMP) or EDC (due date): na documented in this encounter Plan of Treatment Upcoming Encounters Date Type Department Care Team (Late st Contact Info) Description 02/12/2025 8:00 AM EST Treatment [facility] [address] [phone] Dickson Conde, PT 02/12/2025 10:45 AM EST Office Visit Orthopedic Surgery [facility] [address] [phone] Jonatan Marie DPM 175 [facility] [address] [place] [address] 02/14/2025 8:00 AM EST Treatment [facility] [address] [phone] Dickson Conde, PT 02/26/2025 8:30 AM EST Consult Vascular Surgery - [place] 300 [facility] [address] [place] [phone] Joselyn Mccann MD [address] [place] [phone] 03/18/2025 1:30 PM EST Consult [facility] [place] 175 [facility] [address] [place] [phone] Heather Roldan PA [address] [place] [phone] 04/29/2025 11:15 AM EST Office Visit Bariatric Surgery - [place] 175 [facility] [address] [place] [phone] Daisy Dan MD [address] [place] [phone] 04/30/2025 11:00 AM EST Office Visit Adult Medicine [address] [phone] Karin Clemente MD [address] [place] [address] 01/21/2026 11:20 AM EDT Office Visit Gastroenterology - [address] [facility] 299 [facility] [address] [place] [phone] Amelia Garcia NP 299 [facility] [address] [place] [address] documented as of this encounter Visit Diagnoses Diagnosis Encounter for well woman exam with routine gynecological exam- Primary Encounter for screening of mother documented in this encounter Care Teams Lead Technical Writer Relationship Specialty Start Date End Date Karin Clemente MD [address] [place] [address] PCP - General Internal Medicine 01/23/24 documented as of this encounter
--- OUTSIDE RECORDS SUMMARY | 2025-02-06 00:57 | XMS_ITS | Data Portability ---
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 [id number] Active 2014 Nasal polyp, unspecifi ed; Note: Date Diagnosed : 03/05/2015 4:09 PM (J33.9) Not Available [facility] 4 02:44:35 Deviated nasal septum 132073987 Active 2014 Deviated nasal septum; Note: Date Diagnosed : 03/05/2015 4:09 PM (J34.2) Not Available [facility] 4 02:44:37 Allergic rhinitis 73715205 Active 2015 Perennial allergic rhinitis; Note: Date Diagnosed : 04/17/2015 11:43 AM (J30.89) Not Available [facility] 4 02:44:28 Impacted cerumen of bilateral ears [id number] 14038 Active 2022 Impacted cerumen, bilateral ; Note: Date Diagnosed : 3 1:53 PM (H61.23) Not Available [facility] 4 02:44:27 Benign paroxysma l positiona l vertigo 168815512 Active 2022 Benign paroxysma l vertigo, right ear; Note: Date Diagnosed : 3 1:52 PM (H81.11) Not Available [facility] 4 02:44:34 Bilateral tinnitus 70418369475 02 Active 2024 MADYSON CHRISTENSEN [place], [facility] [address] [place] [address],[place] [address], [facility] [place], [address] , [facility] 5 16:09:05 Referred otalgia of right ear [id number] 34202 Active 2024 CALIXTO MELGAR MD [address] [place] [address],[place] [address], [facility] [place], [address] , [facility] [place] 5 16:37:36 Problem Notes None recorded. Procedures Surgical History Date Name Laterality Status Provider Name and Address Organization Details Recorded Time 07/02/2024 Air & Speech Audio with Tymps - 36179, 12058 & 32000 completed MADYSON CHRISTENSEN [place], [facility] [address] [facility],[place] [address], [place], [address], [facility] - [facility] [place] 07/02/2024 16:09:18 Imaging Results None recorded. Procedure [...] mg tablet 07/02 completed Medicati on ID: [id number] D uration Value: 3 Brand Name: oxycodon [...] 6.5 % 07/02 completed Medicati on ID: [id number] D uration Value: 5 Brand Name: Ear [...] mg tablet 07/02 completed Medicati on ID: [id number] D uration Value: 10 Brand Name: ibuprofe n Send Method: E-Prescr ibed Sub s Allowed: subs PRICILLA Lopes al Instruct ion: TAKE 1 TABLET BY MOUTH EVERY 8 HOURS NEEDED FOR PAIN Med icationG enericNa me: ibuprofe n Not Available Not Available Not Available levofloxa josh 500 mg tablet 07/02 completed Medicati on ID: [id number] D uration Value: 7 Brand Name: levoflox [...] mcg tablet 07/02 completed Medicati on ID: [id number] D uration Value: 28 Brand Name: Tri-Prev [...] Updated DateTime 07/02/2024 165.1 cm 53.3 kg/m2 683728.56 g Lindsay Freire [place] [facility] 07/02/2024 16:21:17 Social History None recorded. [...] ICD10 Code Diagnosis IMO Codes Diagnosis Note [id number] CALIXTO MELGAR MD [facility] [address] [address] 07/02/2024 14:57:13 07/02/2024 16:39:08 Bilateral tinnitus [id number] 102 H93.13 Audiologic al evaluation results: Right ear: Normal hearing with excellent word recognitio n. Left ear: Normal hearing with excellent word recognitio n. Tympanomet ry: Right Ear:Type A Left Ear:Type A Referred o talgia of right ear [id number] H92.01 M26.621 M79.11 The patient complains of [...] Ayon Member ID Guarantor Name 07/02/2024 1 [facility] PL[facility] - [employer] (MEDICAID REPLACEMENT - HMO) [employer] Krsytal L Deforge [id number] Krsytal L Deforge Notes Date Note Type [...] discretion. No recent sx. CALIXTO MELGAR MD [address] [place] [address], [place], [address], [place] [facility] 07/02/2024 16:39:55 OBGyn Episode No OBEpisode recorded.
--- OUTSIDE RECORDS SUMMARY | 2025-02-06 00:57 | XMS_ITS | Clinical Summary ---
Author Organization [facility] [address] [place] [address] [place] [address] Phone Care Team Providers Care Angle Roll Operator Name Role Phone Karin Clemente MD Primary Care Provider [phone] Allergies Active Allergy Reactions Criticality Noted Date Comments Amoxicillin-Pot Clavulanate High 12/01/19 22 Other Reaction(s): Numbness, tingling or swelling of the lips, tongue or mouth Cefaclor 12/09/2014 Clindamycin Itching 05/01/2016 Lemon Flavor 05/27/2016 Macrolide Antibiotics 02/11/2014 Methylisothiazolinone 01/27/2017 Other 03/14/2016 TESTED POSITIVE BY WELDER/FABRICATOR Peanut 03/14/2016 WELDER/FABRICATOR TESTED POSITIVE [place] 12/03/2020 Medications diphenhydrAMINE (BENADRYL) 25 mg capsule Take 1 capsule (25 mg total) by mouth every 6 (six) hours if needed for allergies. (TAKE 1-2 TABLETS WITH ALLERGY REACTIONS). 07/18/19 24 Active fluticasone propion-salmetero L (ADVAIR HFA) 230-21 mcg/actuation inhaler Inhale 2 puffs by mouth 2 (two) times a day. This medication has inhaler steroid: Rinse mouth with water and expectorate after each dose to prevent oral/esophageal candidiasis or fungal infection. - 08/15/19 24 Active meclizine (ANTIVERT) 25 mg tablet Take 1 tablet (25 mg total) by mouth 3 (three) times a day if needed for dizziness. 30 tablet 5 03/07/20 24 Active SUMAtriptan (IMITREX) 100 mg tablet TAKE ONE-HALF TO ONE TABLET BY MOUTH NEEDED AT ONSET OF HEADACHE. MAY REPEAT IN 2 HOURS NEEDED. MAX 2 TABLETS PER DAY OR 4 TABLETS A WEEK. (MAY TAKE WITH IBUPROFEN). 07/03/19 25 Active multivitamin (Tab-A-Meri) tablet Take 1 tablet by mouth once daily 90 tablet 1 08/06/19 25 Active cholecalciferol (VITAMIN D-3) 50 mcg [...] 4 HOURS NEEDED FOR PAIN 360 tablet 01/02/20 25 Active EPINEPHrine (EPIPEN) 0.3 mg/0.3 mL injection INJECT CONTENTS OF 1 PEN INTRAMUSCULARLY NEEDED FOR ALLERGIC REACTION 2 each 01/02/20 25 Active famotidine (PEPCID) 40 mg tablet Take 1 tablet by mouth twice daily 180 tablet 12/31/19 25 Active riboflavin (VITAMIN B2) 100 mg tablet TAKE 4 TABLETS BY MOUTH ONCE DAILY 360 tablet 01/02/20 25 Active Nasal [place], sodium chloride, 0.65 % nasal spray USE 1 DOSE IN EACH NOSTRIL 4 TIMES DAILY NEEDED FOR CONGESTION 44 mL 2 01/02/20 25 Active cetirizine (ZyrTEC) 10 mg tabletIndications :Moderate asthma without complication, unspecified whether persistent Take 2 tablets (20 mg total) by mouth 1 (one) time each day if needed for allergies or rhinitis. 90 tablet 3 01/03/20 25 Active Ventolin HFA 90 mcg/actuation inhalerIndication s:Moderate persistent asthma with exacerbation Inhale 2 puffs by mouth every 4 (four) hours if needed for wheezing. 36 g 2 12/31/19 25 2024 Active chlorhexidine (HIBICLENS) 4 % external liquid APPLY TOPICALLY 2 TO 3 TIMES A WEEK TO ABDOMEN AREA. RINSE OFF. 09/18/19 25 Active clotrimazole (LOTRIMIN) 1 % cream APPLY 1 APPLICATION OF CREAM TOPICALLY ONCE DAILY TO AFFECTED AREA/SKIN FOLDS 12/30/19 Active ferrous gluconate (FERGON) 324 mg (38 mg iron) tablet Take 1 tablet (324 mg total) by mouth 1 (one) time each day. 11/10/19 25 Active fluticasone propionate (FLONASE) 50 mcg/actuation nasal spray Administer 2 sprays into each nostril 1 (one) time each day. 12/30/19 Active magnesium glycinate 100 mg magnesium capsule Take 200 mg (2 capsules total) by mouth 2 (two) times a day. 01/09/20 Active ondansetron ODT (ZOFRAN-ODT) 4 mg disintegrating tablet DISSOLVE 1 TABLET IN MOUTH EVERY 6 HOURS NEEDED FOR NAUSEA AND VOMITING 01/02/20 Active senna (Senokot) 8.6 mg tablet Take 2 tablets (17.2 mg total) by mouth 1 (one) time each day. 180 each 3 01/22/20 25 2025 Active ibuprofen (ADVIL,MOTRIN) 100 mg/5 mL suspension Take 20 mL (400 mg total) by mouth every 8 (eight) hours if needed for mild pain. 1800 mL 1 01/23/20 25 Active psyllium (METAMUCIL) 0.4 gram capsule Take 2 capsules (800 mg total) by mouth 1 (one) time each day. 180 capsule 3 01/23/20 25 2025 Active clobetasoL (TEMOVATE) 0.05 % topical solution 02/05/20 Active doxycycline (ADOXA) 100 mg tablet Take 1 tablet (100 mg total) by mouth 2 (two) times a day. for 10 days 02/01/20 25 Active ketoconazole (NIZORAL) 2 % shampoo APPLY SHAMPOO TOPICALLY TO SCALP 2 TO 3 TIMES A WEEK, LEAVE ON FOR 5 MINUTES THEN RINSE OFF 01/30/20 25 Active azelastine (ASTELIN) 137 mcg (0.1 %) nasal spray Administer 2 sprays into each nostril 2 (two) times a day. 12/12/19 24 2024 Disconti nued(The rapy complete d) ibuprofen (ADVIL,MOTRIN) 100 mg/5 mL suspension Take 20 mL (400 mg total) by mouth every 8 (eight) hours if needed for mild pain. 1800 mL 1 06/14/19 25 2024 Disconti nued(Reo rder) lactobacillus (Culturelle) 10 billion cell capsule Take 1 capsule by mouth 1 (one) time each day. 90 capsule 3 07/19/19 25 2024 Disconti nued(The rapy complete d) zafirlukast (Accolate) 10 mg tabletIndications :Moderate persistent asthma with exacerbation Take 1 tablet (10 mg total) by mouth 2 (two) times a day. 60 tablet 2 11/01/19 25 2024 Disconti nued(Non -complia nce) triamcinolone (NASACORT) 55 mcg nasal inhalerIndication s:Seasonal allergic rhinitis due to pollen Administer 2 sprays into each nostril 1 (one) time each day. 10.8 mL 2 11/01/19 25 2024 Disconti nued(The rapy complete d) doxycycline (MONODOX) 100 mg capsule Take 1 capsule (100 mg total) by mouth 2 (two) times a day with meals. 09/12/19 25 2024 Disconti nued(The rapy complete d) fluconazole (DIFLUCAN) 150 mg tablet TAKE ONE TABLET BY MOUTH A ONE-TIME DOSE 08/14/19 25 2024 Disconti nued(The rapy complete d) fluocinolone and shower cap 0.01 % oil APPLY OIL TOPICALLY TO SCALP AT BEDTIME NEEDED FOR FLARES 12/30/19 25 2024 Disconti nued(All ergic response ) psyllium (METAMUCIL) 0.52 gram capsule Take 1 capsule (520 mg total) by mouth 1 (one) time each day. 90 capsule 3 01/22/20 25 2024 Disconti nued(Nahomy ilabilit y) Active Problems Problem Noted Date Diagnosed Date Bilateral tinnitus 07/02/2024 Referred otalgia of right ear 07/02/2024 Chronic gastric ulcer with obstruction 4 Kidney stones 01/08/2024 Moderate asthma 01/08/2024 [...] 02/11/2014 Anxiety 02/11/2014 Overview (01/08/2024): Follows with [facility] behavioral health Counselor: Vanessa Tidwell - weekly OCD (obsessive compulsive disorder) 02/11/2014 Overview (01/08/2024): Sees [facility] Diaposproa- Victoria Tidwell Tenosynovitis, de Quervain 02/11/2014 Overview (01/08/2024): right Dyshidrotic eczema 02/11/2014 Encounters Date Type Department Care Team Description 02/05/2025 12:20 PM EST Lab Draw Station [address] [phone] Lymphadenopathy, occipital; Racing heart beat; Sleep difficulties 02/05/2025 11:30 AM EST Office Visit Adult [address] [phone] Jeromy José PA Lymphadenopathy, occipital (Primary Dx); Racing heart beat; Sleep difficulties 01/31/2025 10:40 AM EDT Lab Draw Station [address] Encounter for screening for viral disease 01/22/2025 1:30 PM EDT Office Visit Adult [address] [phone] Shay Gross PA Chronic nonintractable headache, unspecified headache type (Primary Dx); Low back pain without sciatica, unspecified back pain laterality, unspecified chronicity; Learning difficulty 01/22/2025 12:30 PM EDT Treatment [address] [phone] Max Styles, SURI Tendinitis of right ankle (Primary Dx) 01/22/2025 Telephone Obstetrics & Gynecology [address] [phone] Cherie Wilkinson CNM 01/22/2025 Telephone Gastroenterology [address] [phone] Amelia Garcia, ES 01/21/2025 3:20 PM EDT Office Visit Gastroenterology [address] [phone] Amelia Garcia, ES Gastroesophageal reflux disease without esophagitis (Primary Dx); Constipation, unspecified constipation type 01/13/2025 Telephone Adult Medicine [address] [phone] Corry Renteria MA 01/01/2025 10:15 AM EDT Treatment [address] [phone] Lazrao Tidwell, PLASTIC CUTTER Tendinitis of right ankle (Primary Dx); Difficulty in walking 12/30/2024 Telephone Adult Medicine [address] [phone] Karin Clemente MD 12/25/2024 11:00 AM EDT Treatment [address] [phone] Ge Kahn, PT Tendinitis of right ankle (Primary Dx); Difficulty in walking 12/20/2024 10:30 AM EDT Evaluation [address] [phone] Dickson Conde, PT Tendinitis of right ankle (Primary Dx); Difficulty in walking 12/20/2024 Plan of Care Documentation [address] [phone] 11/13/2024 1:30 PM EDT Office Visit Orthopedic Surgery [place] [address] [phone] Jonatan Marie, DPM Peripheral venous insufficiency (Primary Dx); Plantar fascial fibromatosis; Dermatophytosis of nail; Tendinitis of right ankle; Bursitis of right foot 11/07/2024 Telephone Adult Medicine [address] [phone] Corry Renteria [place] 11/06/2024 Telephone Orthopedic Surgery [place] [address] [phone] Jonatan Marie, DPM from Last 3 Months Immunizations Immunization Administration [...] (obsessive compulsive disorder) 02/11/2014 Asthma Morbid obesity ([facility] V24, [facility] V28) 02/11/2014 Anxiety 02/11/2014 ADHD (attention deficit hype ractivity disorder) 02/11/2014 DX:ADHD (attention deficit hyperactivity disorder) Allergic rhinitis 03/10/2015 DX:Allergic rh initis Anxiety 02/11/2014 DX:Anxiety; COMM ENT: Follows with [facility] behavioral health Counselor: Vanessa Tidwell - [...] obesity with BMI of 4 5.0-49.9, adult ([facility]/HCC V24, [facility] V28) 02/11/2014 DX:Morbid obesity wit h BMI of 45.0-49.9, adult ([facility]) OCD (obsessive compulsive disorder) 02/11/2014 DX:OCD (obsessive compulsive disorder); COMMENT: Sees [facility] [place] Tenosynovitis, de Quervain 02/11/2014 DX:Te [...] for your loved ones. For example, children's counselor or elderly care for an older [...] Vag-S pont None Living Dr.Si newsome Delivery Location:[facility] 009 Term 38w 0d 3827 g (135 oz) M Vag-S pont None Living 8 9 Delivery Location:[facility] 11/2018 Last Filed Vital Signs Vital [...] Mass Index 50.26 02/05/2025 11:40 AM EST Plan of Treatment Upcoming Encounters Date Type Department Care Team (Late st Contact Info) Description 02/12/2025 8:00 AM EST Treatment [facility] 175 [facility] [address] [place] [phone] Dickson Conde, PT 02/12/2025 10:45 AM EST Office Visit Orthopedic Surgery [facility] 250 175 [facility] [address] [place] [phone] Jonatan Marie DPM 175 [facility] [address] [place] [phone] 02/14/2025 8:00 AM EST Treatment [facility] 175 [facility] [address] [place] [phone] Dickson Conde, PT 02/26/2025 8:30 AM EST Consult Vascular Surgery [facility] [address] [facility] [address] [place] [phone] Joselyn Mccann MD 230 [place] [phone] 03/18/2025 1:30 PM EST Consult [facility] 175 [facility] [address] [place] [phone] Heather Roldan PA 230 [place] [phone] 04/29/2025 11:15 AM EST Office Visit Bariatric Surgery [facility] 175 [facility] [address] [place] [phone] Daisy Dan MD 230 [place] [phone] 04/30/2025 11:00 AM EST Office Visit Adult Medicine [facility] [address] [place], [place] [phone] Karin Clemente MD 4 [place], [place] 01/21/2026 11:20 AM EDT Office Visit Gastroenterology - [address] [phone] Amelia Garcia, ES [address] [phone] Health Maintenance Due Date Last Done Comments Hepatitis B Vaccines (1 of 3 - 19+ 3-dose series) 2003 Pneumococcal Vaccine: Pediatrics (0 to 5 Years) and At-Risk Patients (6 to 49 Years) (1 of 2 - PCV) 2003 HPV Vaccines (1 - 3-dose SCD M series) 2011 COVID-19 Vaccine (2023-2 5 season) 2024 Influenza Vaccine (#1) 2024 Social Influencers of Health Screening 02/05/2026 02/05/2025 Breast Cancer Screening 09/10/2026 09/11/19 25, 03/31/2022 Cholesterol Screening (Lipid Panel) 08/08/2028 08/09/2023, 08/09/2023 Cervical Cancer Screening: HPV 09/26/2029 0 09/26/2024, 07/12/2023 DTaP,Tdap,and Td Vaccines (3 - Td or Tdap) 09/30/2030 09/30/2020, 06/04/2020 RSV Immunization Adult Patients (1 - 1-dose 75+ series) 2059 HIV Screening Completed 01/10/2022 Hepatitis C Screening Completed 01/31/2025 , 04/23/2020 Depression Screening Completed 02/05/2025 HIB Vaccines Aged Out No longer eligi [...] Lymphadenopathy, occipital Racing heart beat Sleep difficulties ECG 12-LEAD Routine 02/05/2025 12:13 PM EST Racing heart beat Sleep difficulties HEPATITIS C ANTIBODY Routine 01/31/2025 10:41 AM EDT Encounter for screening for viral disease EXTERNAL VASCULAR ULTRASOUND 12/26/2024 EXTERNAL VASCULAR ULTRASOUND [...] Routine 08/09/2023 HM HIV SCREENING Routine 01/10/2022 from Last 3 Months or Most Recently Relevant to Health Maintenance Results * (ABNORMAL) CBC auto differential (02/05/2025 12:24 PM EST) WBC 7.7 4.8 - 10.8 K/mcL LAB HEMETOLOGY METHOD 02/05/2025 3:22 PM [facility] RBC 4.90(H) 3.80 - 4.80 M/mcL LAB HEMETOLOGY METHOD 02/05/2025 3:22 PM [facility] Hemoglobin 12.8 11.5 - 16.0 g/dL LAB HEMETOLOGY METHOD 02/05/2025 3:22 PM [facility] Hematocrit 41.4 35.0 - 47.0 % LAB HEMETOLOGY METHOD 02/05/2025 3:22 PM [facility] MCV 84.7 79.0 - 98.0 FL LAB HEMETOLOGY METHOD 02/05/2025 3:22 PM [facility] MCH 26.2(L) 27.0 - 32.0 pcg LAB HEMETOLOGY METHOD 02/05/2025 3:22 PM [facility] MCHC 30.9(L) 32.0 - 37.0 g/dL LAB HEMETOLOGY METHOD 02/05/2025 3:22 PM [facility] RDW 13.8 11.0 - 15.0 % LAB HEMETOLOGY METHOD 02/05/2025 3:22 PM [facility] Platelets 254 130 - 400 K/mcL LAB HEMETOLOGY METHOD 02/05/2025 3:22 PM [facility] MPV 10.9 7.0 - 11.0 FL LAB HEMETOLOGY METHOD 02/05/2025 3:22 PM [facility] NRBC 0.0 <1.0 % LAB HEMETOLOGY METHOD 02/05/2025 3:22 PM [facility] NRBC Absolute 0.00 <0.10 K/mcL LAB HEMETOLOGY METHOD 02/05/2025 3:22 PM [facility] Neutrophils Relative 63.3 % LAB HEMETOLOGY METHOD 02/05/2025 3:22 PM [facility] Lymphocytes Relative 27.0 % LAB HEMETOLOGY METHOD 02/05/2025 3:22 PM [facility] Monocytes Relative 6.3 % LAB HEMETOLOGY METHOD 02/05/2025 3:22 PM [facility] Eosinophils Relative 2.1 % LAB HEMETOLOGY METHOD 02/05/2025 3:22 PM [facility] Basophils Relative 0.9 % LAB HEMETOLOGY METHOD 02/05/2025 3:22 PM [facility] Immature Granulocytes Relative 0.4 % LAB HEMETOLOGY METHOD 02/05/2025 3:22 PM [facility] Neutrophils Absolute 4.86 1.50 - 7.00 K/mcL LAB HEMETOLOGY METHOD 02/05/2025 3:22 PM [facility] Lymphocytes Absolute 2.07 1.00 - 5.00 K/mcL LAB HEMETOLOGY METHOD 02/05/2025 3:22 PM [facility] Monocytes Absolute 0.48 0.20 - 1.00 K/mcL LAB HEMETOLOGY METHOD 02/05/2025 3:22 PM [facility] Eosinophils Absolute 0.16 0.00 - 0.50 K/mcL LAB HEMETOLOGY METHOD 02/05/2025 3:22 PM [facility] Basophils Absolute 0.07 0.00 - 0.20 K/mcL LAB HEMETOLOGY METHOD 02/05/2025 3:22 PM EST [facility] Immature Granulocytes Absolute 0.03 0.00 - 0.03 K/mcL LAB HEMETOLOGY METHOD 02/05/2025 3:22 PM EST [facility] Blood Venous blood specimen / Unknown Venipuncture / Unknown 02/05/2025 12:24 PM EST 02/05/2025 12:24 PM EST Jermoy DEL ROSARIO LAB BLOOD ORDERABLES Fin al Result [facility] [address] [place] [address], [place] [phone] * Thyroid stimulating hormone (02/05/2025 12:24 PM EST) TSH 3.23 0.40 - 4.00 mcIU/mL LAB CHEMISTRY METHOD 02/05/2025 5:54 PM EST [facility] Blood Venous blood specimen / Unknown Venipuncture / Unknown 02/05/2025 12:24 PM EST 02/05/2025 12:24 PM EST Jeromy DEL ROSARIO LAB BLOOD ORDERABLES Fin al Result Performing Organization Address City/[facility]/ZIP Co de Phone Number [facility] [address] [place] [address], [place] [phone] * Magnesium (02/05/2025 12:24 PM EST) Magnesium 2.1 1.9 - 2.6 mg/dL LAB CHEMISTRY METHOD 02/05/2025 5:13 PM EST [facility] Blood Venous blood specimen / Unknown Venipuncture / Unknown 02/05/2025 12:24 PM EST 02/05/2025 12:24 PM EST us Jeromy DEL ROSARIO LAB BLOOD ORDERABLES Fin al Result [facility] [address] [place] [address], * Comprehensive metabolic panel (02/05/2025 12:24 PM EST) Sodium 138 133 - 145 mmol/L LAB CHEMISTRY METHOD 02/05/2025 5:13 PM [facility] Potassium 4.2 3.5 - 5.5 mmol/L LAB CHEMISTRY METHOD 02/05/2025 5:13 PM [facility] Chloride 104 96 - 110 mmol/L LAB CHEMISTRY METHOD 02/05/2025 5:13 PM [facility] CO2 30 21 - 32 mmol/L LAB CHEMISTRY METHOD 02/05/2025 5:13 PM [facility] Anion Gap 4 3 - 11 LAB CHEMISTRY METHOD 02/05/2025 5:13 PM [facility] Glucose 92 70 - 100 mg/dL LAB CHEMISTRY METHOD 02/05/2025 5:13 PM [facility] BUN 9 5 - 25 mg/dL LAB CHEMISTRY METHOD 02/05/2025 5:13 PM [facility] Creatinine 0.84 0.50 - 1.10 mg/dL LAB CHEMISTRY METHOD 02/05/2025 5:13 PM [facility] eGFR 90 >=60 mL/min/1. 73m2 LAB CHEMISTRY METHOD 02/05/2025 5:13 PM [facility] Comment:Calculation based on the Chronic Kidney Disease Epidemiology Collaboration (CKD-EPI) equation refit without adjustment for race. BUN/Creatinine Ratio 10.7 LAB CHEMISTRY METHOD 02/05/2025 5:13 PM [facility] Calcium 9.2 8.5 - 10.5 mg/dL LAB CHEMISTRY METHOD 02/05/2025 5:13 PM [facility] AST (SGOT) 21 10 - 42 unit/L LAB CHEMISTRY METHOD 02/05/2025 5:13 PM [facility] ALT (SGPT) 31 10 - 60 unit/L LAB CHEMISTRY METHOD 02/05/2025 5:13 PM EST [facility] Alkaline Phosphatase 95 42 - 121 unit/L LAB CHEMISTRY METHOD 02/05/2025 5:13 PM EST [facility] Total Protein 7.0 6.0 - 8.0 g/dL LAB CHEMISTRY METHOD 02/05/2025 5:13 PM EST [facility] Albumin 3.7 3.2 - 5.0 g/dL LAB CHEMISTRY METHOD 02/05/2025 5:13 PM [facility] Total Bilirubin 0.4 0.0 - 1.4 mg/dL LAB CHEMISTRY METHOD 02/05/2025 5:13 PM EST [facility] Blood Venous blood specimen / Unknown Venipuncture / Unknown 02/05/2025 12:24 PM EST 02/05/2025 12:24 PM EST us Jeromy DEL ROSARIO LAB BLOOD ORDERABLES Fin al Result [facility] [address] [place] [address], [place] [phone] * ECG 12 lead (02/05/2025 12:13 PM EST) Narrative Jeromy José PA - 02/05/2025 12:13 PM EST Sinus tachycardia. No acute ST changes us Jeromy DEL ROSARIO ECG ORDERABLES Final Re sult * Hepatitis C antibody (01/31/2025 10:41 AM EDT) Hepatitis C Antibody Negative Negative LAB CHEMISTRY METHOD 01/31/2025 5:02 PM EDT [facility] Blood Venous blood specimen / Unknown Venipuncture / Unknown 01/31/2025 10:41 AM EDT 01/31/2025 10:41 AM EDT Tushar Stanford [facility] BLOOD ORDERABLES Final Re sult Performing Organization Address City/[facility]/ZIP Co de Phone Number [facility] [address] [place] [address], [place] [phone] * External Vascular Ultrasound (12/26/2024) Only the [...] LAB MICROBIOLOGY METHOD 09/27/2024 12:43 PM EDT [facility] Brushing/Spatula Cervix uteri structure / Unknown 09/26/2024 11:50 AM EDT 09/27/2024 6:13 AM EDT Cherie Wilkinson [facility] MOLECULAR DIAGNOSTICS ORD ERABLES Final Result Performing Organization Address [facility]/ZIP Co de Phone Number [facility] [address] [place] [address], [place] [phone] * MG Mammo Digital Screening w Bandar [...] year. Mamm[facility] location: [facility] [address], [address] -------- FINAL REPORT -------- Dictated By: Tee Cronin Dictated Date: 09/11/2024 11:23 ET Assigned Physician: Tee Cronin Reviewed and Electronically Signed By: Tee Cronin Signed Date: 09/11/2024 11:31 ET Workstation ID: [id number] Transcribed By: Self Edit Transcribed Date: 09/11/2024 11:23 ET Narrative 09/11/2024 11:31 AM EDT EXAM: SCREENING MAMMOGRAPHY, BILATERAL HISTORY: SCREENING. Aunt diagnosed with breast cancer age 45 COMPARISON: 03/31/22 TECHNIQUE: Synthesized CC and MLO projections of each breast. Tomosynthesis of each breast in the CC and MLO projections. ADDITIONAL IMAGING: None Computer-aided detection was employed with the [employer] AI 3-D. TISSUE DENSITY: The breasts are [...] None Computer-aided detection was employed with the [employer] AI 3-D. TISSUE DENSITY: The breasts are [...] year. Mammography location: [facility] [address], [address] -------- FINAL REPORT -------- Dictated By: Tee Cronin Dictated Date: 09/11/2024 11:23 ET Assigned Physician: Tee Cronin Reviewed and Electronically Signed By: Tee Cronin Signed Date: 09/11/2024 11:31 ET Workstation ID: [id number] Transcribed By: Self Edit Transcribed Date: 09/11/2024 11:23 ET Cherie Wilkinson CN IMG BI PROCEDURES Final Resul t * [...] Pathologist [facility] HIV Screening abstracted Historical Provider HEALTH MAINTENANCE Final Result from Last 3 Months or Most Recently Relevant to Health Maintenance Insurance [facility] Care Teams Angle Roll Operator Relationship Specialty Start Date End Date Karin Clemente MD [address] [place] [phone] PCP - General Internal Medicine 01/23/24
--- OUTSIDE RECORDS SUMMARY | 2025-02-06 00:57 | XMS_ITS | Encounter Summary ---
Author Organization [facility] Address [address] [place] [address] Care Team Providers Care Insole Doubler Name Role Phone Karin Clemente MD Primary Care Provider [phone] Reason for Visit * Reason Onset Date Comments Medication Problem 01/22/2025 Encounter Details Date Type Department Care Team ([facility] Contact Info) Description 01/22/2025 Telephone Gastroenterology - [place] 175 [facility] 175 [facility] 200 [place] [phone] Amelia Garcia NP 299 [facility] [address] [place] [address] Social History Tobacco Use Types Packs/Day Years [...] as of this encounter Progress Notes * Amelia Garcia NP - 01/22/2025 4:46 PM EDT Alternative-Metamucil 0.4 g capsule sent. Thank you. * Zakia Houser - 01/22/2025 9:09 AM EDT Patient calling states she saw Amelia yesterday, 01/22 in office. Patient states she was prescribed psyllium (METAMUCIL) 0.52 gram capsule However [facility] pharmacy told her they do not have this dosage, 0.52 gram. Please resend new dosage. documented in this encounter Plan of Treatment Upcoming Encounters Date Type Department Care Team (Late st Contact Info) Description 02/12/2025 8:00 AM EST Treatment [facility] [address] [phone] Dickson Conde, PT 02/12/2025 10:45 AM EST Office Visit Orthopedic Surgery [facility] 250 175 [facility] 250 [place] [phone] Jonatan Marie, DPM 175 [facility] 250 [place] [phone] 02/14/2025 8:00 AM EST Treatment [facility] [address] [phone] Dickson Conde, PT 02/26/2025 8:30 AM EST Consult Vascular Surgery [facility] [address] [place] [phone] Joselyn Mccann MD 230 [place] [phone] 03/18/2025 1:30 PM EST Consult [facility] 175 [facility] 150 [place] [phone] Heather Roldan PA 230 [place] [address] 04/29/2025 11:15 AM EST Office Visit Bariatric Surgery - [place] 175 [facility] 120 [place] [address] Daisy Dan MD 230 [place] [address] 04/30/2025 11:00 AM EST Office Visit Adult Medicine [facility] [address] [place] [address] Karin Clemente MD [address] [place] [address] 01/21/2026 11:20 AM EDT Office Visit Gastroenterology - 299 [facility] 299 [facility] [address] [place] [address] Amelia Garcia, ES 299 [facility] [address] [place] [address] documented as of this encounter Visit Diagnoses Not on filedocumented in this encounter Care Teams Insole Doubler Relationship Specialty Start Date End Date Karin Clemente MD [address] [place] [address] PCP - General Internal Medicine 01/23/24 documented as of this encounter
[2025-02-06 02:31] VITALS: BP 129/76; PULSE 84; RESP 16; O2SAT 98
[2025-02-06 02:56] LABS: D Dimer High Sensitivity 222 NG/ML
[2025-02-06 03:01] LABS: COVID-19 Test Negative (Negative); IDNOW Serial# 55D5AD1C; IDNOW Serial# 58CA691E; Influenza B2 Negative (Negative)
[2025-02-06 03:06] LABS: Troponin-I High Sensitivity < 2.7 ng/L (<3.5-17.0)
[2025-02-06 04:14] VITALS: BP 129/76; PULSE 84; RESP 16; TEMP -17.7; TEMP 0; O2SAT 98
== END 2025-02-06 04:14 | disposition home or self-care (01) ==
PROVIDERS: Physician Assistant; Emergency Provider Emergency Medicine; PCP Internal Medicine
DX: R00.2 Palpitations (principal); R07.9 Chest pain, unspecified; R11.0 Nausea; Z03.818 Encounter for observation for suspected exposure to other biological agents ruled out
CPT/HCPCS: 36415; 80053; 81003; 81025; 84484; 85025; 85379; 87502; 87635; 93005; 96360; 99284; 99285

== ENCOUNTER → 2025-02-05 19:59 | Outpatient (BNV) | payer OTHER, SELFPAY | PROVIDERS: Emergency Provider Emergency Medicine; PCP Internal Medicine; Visit Provider Internal Medicine Cardiovascular Disease | DX: R00.0 Tachycardia, unspecified (principal) | CPT/HCPCS: 93010 ==

== ENCOUNTER 2025-02-12 09:02 | Outpatient (REF) | payer OTHER, SELFPAY ==
--- NOTE | ~2025-02-12 | US_ITS ---
EXAMINATION: US NONINVASIVE ASSESSMENT OF THE bilateral LOWER EXTREMITY WITH ARTERIAL DUPLEX CLINICAL INFORMATION: Paresthesias COMPARISON: None available. TECHNIQUE: Duplex Doppler techniques with waveform analysis and measurement of velocities in the common femoral, profunda femoris, superficial femoral, popliteal and tibial arteries were performed. The study was performed only at rest. FINDINGS: No calcified or noncalcified plaque or luminal narrowing seen. Normal peak systolic velocities and waveforms seen throughout both lower extremities. No evidence of peripheral vascular disease. Normal-appearing right inguinal lymph nodes. RIGHT LOWER EXTREMITY DUPLEX ULTRASOUND: Common femoral artery: 122 cm/s. Diastolic flow reversal: Triphasic Profunda femoris artery: 66 cm/s. Diastolic flow reversal: Triphasic Superficial femoral artery (proximal): 95 cm/s. Diastolic flow reversal: Triphasic Superficial femoral artery (mid): 95 cm/s. Diastolic flow reversal: Triphasic Superficial femoral artery (distal): 72 cm/s. Diastolic flow reversal: Triphasic Popliteal artery: 57 cm/s Diastolic flow reversal: Triphasic Posterior tibial artery: 77 cm/s Diastolic flow reversal: Triphasic LEFT LOWER EXTREMITY DUPLEX ULTRASOUND: Common femoral artery: 104 cm/s. Diastolic flow reversal: Triphasic Profunda femoris artery: 50 cm/s. Diastolic flow reversal: Triphasic Superficial femoral artery (proximal): 102 cm/s. Diastolic flow reversal: Triphasic Superficial femoral artery (mid): 88 cm/s. Diastolic flow reversal: Triphasic Superficial femoral artery (distal): 72 cm/s. Diastolic flow reversal: Triphasic Popliteal artery: 58 cm/s Diastolic flow reversal: Triphasic Posterior tibial artery: 86 cm/s Diastolic flow reversal: Triphasic US/US arterial duplex LE BI IMPRESSION: Normal exam. No evidence of peripheral vascular disease. Electronically signed by: Grecia Chavez MD 02/12/2025 09:54 AM EST
--- OUTSIDE RECORDS SUMMARY | 2025-02-12 08:00 | XMS_ITS | Encounter Summary ---
Author Organization [facility] Address [address] [place] [address] Care Team Providers Care Hospital Security Officer Name Role Phone Karin Clemente MD Primary Care Provider [phone] Reason for Visit * Consultation (Routine) - Authorized Specialty Diagnoses / Procedures Referred By Janae lynch Referred To Contact Physical Therapy Diagnoses Tendinitis of right ankle Bursitis of right foot Jonatan Marie, DPM 175 [facility] [address] [place] [address] Phone: tel: fax: Referral ID Status Reason Start Date Expiration Date Visits Requested Visits Authorized [id number] Authorized Specialty Services Required 09/17/2024 09/17/2025 20 20 Encounter Details Date Type Department Care Team ([facility] Contact Info) Description 02/12/2025 8:00 AM EST Treatment [facility] Outpatient Rehabilitation - [place] 175 [facility] [address] [place] [address] Dickson Conde PT Tendinitis of right ankle (Primary Dx); Difficulty in walking Social History Tobacco Use Types Packs/Day Years [...] for your loved ones. For example, child care leader or elderly care for an older adult? [...] as of this encounter Progress Notes * Dickson Conde, PT - 02/12/2025 8:00 AM EST [facility] - Outpatient PHYSICAL THERAPY DAILY TREATMENT NOTE - OP Date: 02/12/2025 Visit Number: 2 Patient Name: Zina Barber : 1985 Age: 39 y.o. Gender: female Diagnosis: ICD-10-CM ICD-9-CM 1. Tendinitis of right ankle M77.51 727.06 2. Difficulty in walking R26.2 719.7 Date of Onset/Surgery: Multiple active episodes found Referring Provider: Jonatan Marie DPM Insurance: Payor: [employer] PLAN / Plan: [employer] MEDICAID / Product Type: *No Product type* / Patient Identified by: Dickson Conde PT Language: Speaks and understands Nicaraguan as preferred language with no educational sign language interpreter required Medications: Medications Ordered Prior to Encounter[1] Allergies: is allergic to amoxicillin-pot clavulanate, cefaclor, clindamycin, lemon flavor, macrolide antibiotics, methylisothiazolinone, other, peanut, and strawberry. Precautions: None Fall risk: No SUBJECTIVE: Subjective Report: Pt reports having difficulty getting to PT due to illness and transportation problems. See Dr Marie today. Chart Reviewed: Yes Pain: B arches R > L. 07/11 OBJECTIVE: Vitals: There were no vitals filed for this visit.; TREATMENT INTERVENTION: Brief reassessment B feet. ROM WNL except DF with knee extended limited to -5 degrees. Improved foot alignment with orthotics. Still ambulates with decreased toe off and heel strike Palmer. (Foot flat contact) SLS x 10 sec R and L today with pain when pronating at arches R > L. Therex: Ankle pumps x 20 Passive and self calf stretching Printed up stretches for home. ASSESSMENT/Response to Treatment Fair Pt was unable to attend PT consistently. Pt is interested in committing to PT but will see theDr first. Pt to cont to stretch her calves with HEP. Patient Education: Education provided: HEP and POC Education Provided To: Patient utilizing Explanation and Demonstration mode(s) of education Response to Education: Applied Knowledge, Verbal Understanding, and Demonstrated Skills PLAN POC Development/Review: Changes in the Plan of Care; Participants: Patient on hold pending MD F/U. Will try PT again if MD requests it and pt is committed to coming to her appointments. Interventions Time Entry: Modalities: Therapeutic procedures: Therapeutic Exercise Time Entry: 25 Total Treatment Time: 30 Documentation completed by Dickson Conde PT [1] Current Outpatient Medications on File Prior to [...] for allergies or rhinitis. 90 tablet 3 chlorhexidine (HIBICLENS) 4 % external liquid APPLY TOPICALLY 2 TO 3 TIMES A WEEK TO ABDOMEN AREA. RINSE OFF. cholecalciferol (VITAMIN D-3) 50 mcg (2,000 unit) [...] mouth once daily 90 tablet 1 Nasal [place], sodium chloride, 0.65 % nasal spray USE [...] if needed for wheezing. 36 g 2 No current facility-administered medications on file prior to visit. documented in this encounter Plan of Treatment Upcoming Encounters Date Type Department Care Team (Late st Contact Info) Description 02/12/2025 10:45 AM EST Office Visit Orthopedic Surgery - [place] 250 175 [facility] 250 [place] [phone] Jonatan Marie, DPM 175 [facility] 250 [place] [address] 02/19/2025 12:30 PM EST Office Visit Adult Medicine [address] [phone] Shay Gross PA [address] [place] [address] 02/26/2025 8:30 AM EST Consult Vascular Surgery - [place] [address] [facility] [address] [place] [phone] Joselyn Mccann MD 230 [place] [phone] 03/18/2025 1:30 PM EST Consult [facility] [place] 175 [facility] 150 [place] [phone] Heather Roldan PA 230 [place] [phone] 04/29/2025 11:15 AM EST Office Visit Bariatric Surgery - [place] 175 [facility] 120 [place] [phone] Daisy Dan MD 230 [place] [phone] 04/30/2025 11:00 AM EST Office Visit Adult Medicine [address] [phone] Karin Clemente MD [address] [place] [address] 01/21/2026 11:20 AM EDT Office Visit Gastroenterology - [address] [place] [address] [address] Amelia Garcia, ES [address] [address] documented as of this encounter Visit Diagnoses Diagnosis Tendinitis of right ankle- Primary Difficulty in walking documented in this encounter Additional Health Concerns Assessment Noted Time PHQ-9 Depression Total Score: 15 025 11:37 AM EST documented as of this encounter Care Teams Hospital Security Officer Relationship Specialty Start Date End Date Karin Clemente MD [address] [place] [phone] PCP - General Internal Medicine 01/23/24 documented as of this encounter
--- OUTSIDE RECORDS SUMMARY | 2025-02-12 09:39 | XMS_ITS | Encounter Summary ---
Author Organization [facility] Address [address] [place] [address] Care Team Providers Care Rubber Grinder Name Role Phone Karin Clemente MD Primary Care Provider [phone] Reason for Visit * Reason Onset Date Comments Medication Problem 01/22/2025 Encounter Details Date Type Department Care Team ([facility] Contact Info) Description 01/22/2025 Telephone Gastroenterology - [place] 175 [facility] 175 [facility] 200 [place] [phone] Amelia Garcia NP 299 [facility] 419 [place] [address] Social History Tobacco Use Types Packs/Day Years [...] g capsule sent. Thank you. * Zakia Smith Monte - 01/22/2025 9:09 AM EDT Patient calling states she saw Amelia yesterday, 01/22 in office. Patient states she was prescribed psyllium (METAMUCIL) 0.52 gram capsule However [facility] pharmacy told her they do not have this dosage, 0.52 gram. Please resend new dosage. documented in this encounter Plan of Treatment Upcoming Encounters Date Type Department Care Team (Late st Contact Info) Description 02/12/2025 10:45 AM EST Office Visit Orthopedic Surgery [facility] 250 175 [facility] 250 [place] [phone] Jonatan Marie DPFreya 175 [facility] 250 [place] [phone] 02/19/2025 12:30 PM EST Office Visit Adult Medicine [facility] [address] [place] [address] Shay Gross PA 444 [place] [address] 02/26/2025 8:30 AM EST Consult Vascular Surgery - [place] 300 [facility] 210 [place] [phone] Joselyn Mccann MD 230 [place] [phone] 03/18/2025 1:30 PM EST Consult [facility] [place] 175 [facility] 150 [place] [phone] Heather Roldan PA 230 [place] [phone] 04/29/2025 11:15 AM EST Office Visit Bariatric Surgery - [place] 175 [facility] 120 [place] [phone] Daisy Dan MD 230 [place] [address] 04/30/2025 11:00 AM EST Office Visit Adult Medicine [facility] [address] [place] [address] Karin Clemente MD [address] [place] [address] 01/21/2026 11:20 AM EDT Office Visit Gastroenterology - 299 [facility] 299 [facility] 419 [place] [phone] Amelia Garcia NP 299 [facility] 419 [place] [address] documented as of this encounter Visit Diagnoses Not on filedocumented in this encounter Care Teams Rubber Grinder Relationship Specialty Start Date End Date Karin Clemente MD [address] [place] [address] PCP - General Internal Medicine 01/23/24 documented as of this encounter
--- OUTSIDE RECORDS SUMMARY | 2025-02-12 09:39 | XMS_ITS | Encounter Summary ---
Author Organization [facility] Address [address] [place] [address] Care Team Providers Care Liquefied Petroleum Gasfitter Name Role Phone Karin Clemente MD Primary Care Provider [phone] Reason for Visit * Reason Onset Date Comments Immunizations 01/22/2025 Encounter Details Date Type Department Care Team (Late st Contact Info) Description 01/22/2025 Telephone Obstetrics & Gynecology - [address] [address] Cherie Wilkinson, [address] [address] Social History Tobacco Use Types [...] 2020 and was negative-but was seen [place] [facility] and she says they show it in [...] has the patient had this problem? 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: Last menstrual period (LMP) or EDC (due date): na documented in this encounter Plan of Treatment Upcoming Encounters Date Type Department Care Team (Late st Contact Info) Description 02/12/2025 10:45 AM EST Office Visit Orthopedic Surgery - [place] 250 175 [facility] 250 [place] [phone] Jonatan Marie, DPM [address] [phone] 02/19/2025 12:30 PM EST Office Visit Adult Medicine [facility] [address] [place] [phone] Shay Gross PA 444 [place] [address] 02/26/2025 8:30 AM EST Consult Vascular Surgery - [place] [address] [place] [phone] Joselyn Mccann MD 230 [place] [phone] 03/18/2025 1:30 PM EST Consult [facility] [place] - [place] 175 [facility] 150 [place] [phone] Heather Roldan PA 230 [place] [address] 04/29/2025 11:15 AM EST Office Visit Bariatric Surgery - [place] 175 [facility] 120 [place] [phone] Daisy Dan MD 230 [place] [phone] 04/30/2025 11:00 AM EST Office Visit Adult Medicine [facility] [address] [place] [address] Karin Clemente MD [address] [place] [address] 01/21/2026 11:20 AM EDT Office Visit Gastroenterology - 299 [facility] 299 [facility] 419 [place] [address] Amelia Garcia NP 299 [facility] 419 [place] [address] documented as of this encounter Visit Diagnoses Diagnosis Encounter for well woman exam with routine gynecological exam- Primary Encounter for screening of mother documented in this encounter Care Teams Liquefied Petroleum Gasfitter Relationship Specialty Start Date End Date Karin Clemente MD [address] [place] [address] PCP - General Internal Medicine 01/23/24 documented as of this encounter
--- OUTSIDE RECORDS SUMMARY | 2025-02-12 09:39 | XMS_ITS | Clinical Summary ---
Author Organization [facility] [address] [place] [address] [place] [address] Phone Care Team Providers Care Lighting Technician Name Role Phone Karin Clemente MD Primary Care Provider [phone] Allergies Active Allergy Reactions Criticality Noted Date Comments Amoxicillin-Pot Clavulanate High 12/01/19 22 Other Reaction(s): Numbness, tingling or swelling of the lips, tongue or mouth Cefaclor 12/09/2014 Clindamycin Itching 05/01/2016 Lemon Flavor 05/27/2016 Macrolide Antibiotics 02/11/2014 Methylisothiazolinone 01/27/2017 Other 03/14/2016 TESTED POSITIVE BY DRY CLEANER HELPER Peanut 03/14/2016 DRY CLEANER HELPER TESTED POSITIVE [place] 12/03/2020 Medications diphenhydrAMINE (BENADRYL) 25 mg capsule [...] DAILY 360 tablet 01/02/20 25 Active Nasal [place], sodium chloride, 0.65 % nasal spray USE [...] 02/11/2014 Anxiety 02/11/2014 Overview (01/08/2024): Follows with [facility] behavioral health Counselor: Vanessa Tidwell - weekly OCD (obsessive compulsive disorder) 02/11/2014 Overview (01/08/2024): Sees [facility] Diaposproa- Victoria Tidwell Tenosynovitis, de Quervain 02/11/2014 Overview (01/08/2024): right Dyshidrotic eczema 02/11/2014 Encounters Date Type Department Care Team Description 02/12/2025 8:00 AM EST Treatment [address] [phone] Dickson Conde, PT Tendinitis of right ankle (Primary Dx); Difficulty in walking 02/10/2025 Telephone Adult [address] [phone] Karin Clemente MD 02/05/2025 12:20 PM EST Lab Draw Station - [address] Lymphadenopathy, occipital; Racing heart beat; Sleep difficulties 02/05/2025 11:30 AM EST Office Visit [address] [phone] Jeromy José PA Lymphadenopathy, occipital (Primary Dx); Racing heart beat; Sleep difficulties 01/31/2025 10:40 AM EDT Lab Draw Station - [address] Encounter for screening for viral disease 01/22/2025 1:30 PM EDT Office Visit [address] [phone] Shay Gross PA Chronic nonintractable headache, unspecified headache type (Primary Dx); Low back pain without sciatica, unspecified back pain laterality, unspecified chronicity; Learning difficulty 01/22/2025 12:30 PM EDT Treatment [facility] [address] [phone] Max Styles PTA Tendinitis of right ankle (Primary Dx) 01/22/2025 Telephone Obstetrics & Gynecology [address] [phone] Cherie Wilkinson CNM 01/22/2025 Telephone Gastroenterology [address] [phone] Amelia Garcia NP 01/21/2025 3:20 PM EDT Office Visit Gastroenterology [address] [phone] Amelia Garcia NP Gastroesophageal reflux disease without esophagitis (Primary Dx); Constipation, unspecified constipation type 01/13/2025 Telephone Adult Medicine [address] [phone] Corry Renteria MA 01/01/2025 10:15 AM EDT Treatment [address] [address] Lazaro Tidwell, ROLL FORGER Tendinitis of right ankle (Primary Dx); Difficulty in walking 12/30/2024 Telephone Adult Medicine [address] [phone] Karin Clemente MD 12/25/2024 11:00 AM EDT Treatment [address] [phone] Ge Kahn, PT Tendinitis of right ankle (Primary Dx); Difficulty in walking 12/20/2024 10:30 AM EDT Evaluation [address] [phone] Dickson Conde, PT Tendinitis of right ankle (Primary Dx); Difficulty in walking 12/20/2024 Plan of Care Documentation [address] [phone] 11/13/2024 1:30 PM EDT Office Visit Orthopedic Surgery [place] [address] [phone] Jonatan Marie, DPM Peripheral venous insufficiency (Primary Dx); Plantar fascial fibromatosis; Dermatophytosis of nail; Tendinitis of right ankle; Bursitis of right foot from Last 3 Months Immunizations Immunization Administration [...] (obsessive compulsive disorder) 02/11/2014 Asthma Morbid obesity ([facility] V24, [facility] V28) 02/11/2014 Anxiety 02/11/2014 ADHD (attention deficit hype ractivity disorder) 02/11/2014 DX:ADHD (attention deficit hyperactivity disorder) Allergic rhinitis 03/10/2015 DX:Allergic rh initis Anxiety 02/11/2014 DX:Anxiety; COMM ENT: Follows with [facility] behavioral health Counselor: Vanessa Tidwell - [...] BMI of 4 5.0-49.9, adult (CMS/HCC V24, CMS/[facility] V28) 02/11/2014 DX:Morbid obesity wit h BMI of 45.0-49.9, adult ([facility]) OCD (obsessive compulsive disorder) 02/11/2014 DX:OCD (obsessive compulsive disorder); COMMENT: Sees [facility] [place] Tenosynovitis, de Quervain 02/11/2014 DX:Te [...] for your loved ones. For example, child support agent or elderly care for an older adult? [...] Vag-S pont None Living Dr.Si newsome Delivery Location:[facility] 009 Term 38w 0d 3827 g (135 oz) M Vag-S pont None Living 8 9 Delivery Location:[facility] 11/2018 Last Filed Vital Signs Vital [...] Surgery [facility] 250 175 [facility] [address] 250 [place] [address] Jonatan Marie, DPM 175 [facility] [address] 250 [place] [phone] 02/19/2025 12:30 PM EST Office Visit Adult [facility] [address] [place] [phone] Shay Gross PA 444 [place] [address] 02/26/2025 8:30 AM EST Consult Vascular Surgery - [place] [address] [facility] 210 [place] [phone] Joselyn Mccann MD 230 [place] [phone] 03/18/2025 1:30 PM EST Consult [facility] [place] 175 [facility] [address] 150 [place] [phone] Heather Roldan PA 230 [place] [phone] 04/29/2025 11:15 AM EST Office Visit Bariatric Surgery - [place] 175 [facility] [address] 120 [place] [phone] Daisy Dan MD 230 [place] [address] 04/30/2025 11:00 AM EST Office Visit Adult Medicine [facility] [address] [place], [place] [phone] Karin Clemente MD 444 [place], [place] 01/21/2026 11:20 AM EDT Office Visit Gastroenterology - [address] [phone] Amelia Garcia, ES [address] [address] Health Maintenance Due Date Last Done Comments Hepatitis B Vaccines (1 of 3 - 19+ 3-dose series) 2003 Pneumococcal Vaccine: Pediatrics (0 to 5 Years) and At-Risk Patients (6 to 49 Years) (1 of 2 - PCV) 2003 HPV Vaccines (1 - 3-dose SCD M series) 2011 COVID-19 Vaccine ( - 2024-2 6 season) 2024 Influenza Vaccine (#1) 2024 Social [...] VASCULAR ULTRASOUND 12/26/2024 EXTERNAL VASCULAR ULTRASOUND 12/26/2024 HPV WITH REFLEX GENOTYPE Routine 09/26/2024 11:50 [...] K/mcL LAB HEMETOLOGY METHOD 02/05/2025 3:22 PM [facility] RBC 4.90(H) 3.80 - 4.80 M/mcL LAB HEMETOLOGY METHOD 02/05/2025 3:22 PM [facility] Hemoglobin 12.8 11.5 - 16.0 g/dL LAB HEMETOLOGY METHOD 02/05/2025 3:22 PM [facility] Hematocrit 41.4 35.0 - 47.0 % LAB HEMETOLOGY METHOD 02/05/2025 3:22 PM [facility] MCV 84.7 79.0 - 98.0 FL LAB HEMETOLOGY METHOD 02/05/2025 3:22 PM [facility] MCH 26.2(L) 27.0 - 32.0 pcg LAB HEMETOLOGY METHOD 02/05/2025 3:22 PM [facility] MCHC 30.9(L) 32.0 - 37.0 g/dL LAB HEMETOLOGY METHOD 02/05/2025 3:22 PM [facility] RDW 13.8 11.0 - 15.0 % LAB HEMETOLOGY METHOD 02/05/2025 3:22 PM [facility] Platelets 254 130 - 400 K/mcL LAB HEMETOLOGY METHOD 02/05/2025 3:22 PM [facility] MPV 10.9 7.0 - 11.0 FL LAB HEMETOLOGY METHOD 02/05/2025 3:22 PM [facility] NRBC 0.0 <1.0 % LAB HEMETOLOGY METHOD 02/05/2025 3:22 PM [facility] NRBC Absolute 0.00 <0.10 K/mcL LAB HEMETOLOGY METHOD 02/05/2025 3:22 PM [facility] Neutrophils Relative 63.3 % LAB HEMETOLOGY METHOD 02/05/2025 3:22 PM [facility] Lymphocytes Relative 27.0 % LAB HEMETOLOGY METHOD 02/05/2025 3:22 PM [facility] Monocytes Relative 6.3 % LAB HEMETOLOGY METHOD 02/05/2025 3:22 PM [facility] Eosinophils Relative 2.1 % LAB HEMETOLOGY METHOD 02/05/2025 3:22 PM [facility] Basophils Relative 0.9 % LAB HEMETOLOGY METHOD 02/05/2025 3:22 PM [facility] Immature Granulocytes Relative 0.4 % LAB HEMETOLOGY METHOD 02/05/2025 3:22 PM [facility] Neutrophils Absolute 4.86 1.50 - 7.00 K/mcL LAB HEMETOLOGY METHOD 02/05/2025 3:22 PM [facility] Lymphocytes Absolute 2.07 1.00 - 5.00 K/mcL LAB HEMETOLOGY METHOD 02/05/2025 3:22 PM [facility] Monocytes Absolute 0.48 0.20 - 1.00 K/mcL LAB HEMETOLOGY METHOD 02/05/2025 3:22 PM [facility] Eosinophils Absolute 0.16 0.00 - 0.50 K/mcL LAB HEMETOLOGY METHOD 02/05/2025 3:22 PM [facility] Basophils Absolute 0.07 0.00 - 0.20 K/mcL LAB HEMETOLOGY METHOD 02/05/2025 3:22 PM [facility] Immature Granulocytes Absolute 0.03 0.00 - 0.03 K/mcL LAB HEMETOLOGY METHOD 02/05/2025 3:22 PM EST [facility] Blood Venous blood specimen / Unknown Venipuncture / Unknown 02/05/2025 12:24 PM EST 02/05/2025 12:24 PM EST Jeromy DEL ROSARIO LAB BLOOD ORDERABLES Fin al Result Performing Organization Address City/[facility]/ZIP Co de Phone Number [facility] [address] [place] [address], [place] [phone] * Thyroid stimulating hormone (02/05/2025 12:24 PM EST) TSH 3.23 0.40 - 4.00 mcIU/mL LAB CHEMISTRY METHOD 02/05/2025 5:54 PM EST [facility] Blood Venous blood specimen / Unknown Venipuncture / Unknown 02/05/2025 12:24 PM EST 02/05/2025 12:24 PM EST us Jeromy DEL ROSARIO LAB BLOOD ORDERABLES Fin al Result Performing Organization Address [facility]/ZIP Co de Phone Number [facility] [address] [place] [address], [place] [phone] * Magnesium (02/05/2025 12:24 PM EST) Magnesium 2.1 1.9 - 2.6 mg/dL LAB CHEMISTRY METHOD 02/05/2025 5:13 PM EST [facility] Blood Venous blood specimen / Unknown Venipuncture / Unknown 02/05/2025 12:24 PM EST 02/05/2025 12:24 PM EST us Jeromy DEL ROSARIO LAB BLOOD ORDERABLES Fin al Result [facility] [address] [place] [address], [place] [phone] * Comprehensive metabolic panel (02/05/2025 12:24 PM EST) Sodium 138 133 - 145 mmol/L LAB CHEMISTRY METHOD 02/05/2025 5:13 PM [facility] Potassium 4.2 3.5 - 5.5 mmol/L LAB CHEMISTRY METHOD 02/05/2025 5:13 PM [facility] Chloride 104 96 - 110 mmol/L LAB CHEMISTRY METHOD 02/05/2025 5:13 PM [facility] CO2 30 21 - 32 mmol/L LAB CHEMISTRY METHOD 02/05/2025 5:13 PM [facility] Anion Gap 4 3 - 11 LAB CHEMISTRY METHOD 02/05/2025 5:13 PM [facility] Glucose 92 70 - 100 mg/dL LAB CHEMISTRY METHOD 02/05/2025 5:13 PM [facility] BUN 9 5 - 25 mg/dL LAB CHEMISTRY METHOD 02/05/2025 5:13 PM [facility] Creatinine 0.84 0.50 - 1.10 mg/dL LAB CHEMISTRY METHOD 02/05/2025 5:13 PM [facility] eGFR 90 >=60 mL/min/1. 73m2 LAB CHEMISTRY METHOD 02/05/2025 5:13 PM [facility] Comment:Calculation based on the Chronic Kidney Disease Epidemiology Collaboration (CKD-EPI) equation refit without adjustment for race. BUN/Creatinine Ratio 10.7 LAB CHEMISTRY METHOD 02/05/2025 5:13 PM [facility] Calcium 9.2 8.5 - 10.5 mg/dL LAB CHEMISTRY METHOD 02/05/2025 5:13 PM [facility] AST (SGOT) 21 10 - 42 unit/L LAB CHEMISTRY METHOD 02/05/2025 5:13 PM [facility] ALT (SGPT) 31 10 - 60 unit/L LAB CHEMISTRY METHOD 02/05/2025 5:13 PM EST [facility] Alkaline Phosphatase 95 42 - 121 unit/L LAB CHEMISTRY METHOD 02/05/2025 5:13 PM [facility] Total Protein 7.0 6.0 - 8.0 g/dL LAB CHEMISTRY METHOD 02/05/2025 5:13 PM [facility] Albumin 3.7 3.2 - 5.0 g/dL LAB CHEMISTRY METHOD 02/05/2025 5:13 PM EST [facility] Total Bilirubin 0.4 0.0 - 1.4 mg/dL LAB CHEMISTRY METHOD 02/05/2025 5:13 PM EST [facility] Blood Venous blood specimen / Unknown Venipuncture / Unknown 02/05/2025 12:24 PM EST 02/05/2025 12:24 PM EST us Jeromy DEL ROSARIO LAB BLOOD ORDERABLES Fin al Result [facility] [address] [place] [address], [place] [phone] * ECG 12 lead (02/05/2025 12:13 PM EST) Narrative Jeromy José PA - 02/05/2025 12:13 PM EST Sinus tachycardia. No acute ST changes Jeromy DEL ROSARIO ECG ORDERABLES Final Re sult * Hepatitis C antibody (01/31/2025 10:41 AM EDT) Hepatitis C Antibody Negative Negative LAB CHEMISTRY METHOD 01/31/2025 5:02 PM EDT [facility] Blood Venous blood specimen / Unknown Venipuncture / Unknown 01/31/2025 10:41 AM EDT 01/31/2025 10:41 AM EDT Tushar Stanford [facility] BLOOD ORDERABLES Final Re sult [facility] [address] [place] [address], [place] [phone] * External Vascular Ultrasound (12/26/2024) Only the most recent of2 resultswithin the time period is included. Anatomical Region Laterality Modality Ultrasound us Provider [facility] CV VASCULAR PROCEDURES F inal Result * HPV with reflex genotype (09/26/2024 11:50 AM EDT) HPV Negative Negative LAB MICROBIOLOGY METHOD 09/27/2024 12:43 PM EDT [facility] Brushing/Spatula Cervix uteri structure / Unknown 09/26/2024 11:50 AM EDT 09/27/2024 6:13 AM EDT Cherie Wilkinson [facility] MOLECULAR DIAGNOSTICS ORD ERABLES Final Result [facility] [address] [place] [address], * MG Mammo Digital Screening w Bandar [...] year. Mammography location: [facility] [address] [place], [address] -------- FINAL REPORT -------- Dictated By: Tee Cronin Dictated Date: 09/11/2024 11:23 ET Assigned Physician: Tee Cronin Reviewed and Electronically Signed By: Tee Cronin Signed Date: 09/11/2024 11:31 ET Workstation ID: [id number] Transcribed By: Self Edit Transcribed Date: 09/11/2024 11:23 ET Narrative 09/11/2024 11:31 AM EDT EXAM: SCREENING MAMMOGRAPHY, BILATERAL HISTORY: SCREENING. Aunt diagnosed with breast cancer age 45 COMPARISON: 03/31/22 TECHNIQUE: Synthesized CC and MLO projections of each breast. Tomosynthesis of each breast in the CC and MLO projections. ADDITIONAL IMAGING: None Computer-aided detection was employed with the [employer] AI 3-D. TISSUE DENSITY: The breasts are [...] None Computer-aided detection was employed with the [employer] AI 3-D. TISSUE DENSITY: The breasts [...] year. Mammography location: [facility] [address], [address] -------- FINAL REPORT -------- Dictated By: Tee Cronin Dictated Date: 09/11/2024 11:23 ET Assigned Physician: Tee Cronin Reviewed and Electronically Signed By: Tee Cronin Signed Date: 09/11/2024 11:31 ET Workstation ID: [id number] Transcribed By: Self Edit Transcribed Date: 09/11/2024 [...] l Result * HIV Screening (01/10/2022) Pathologist [facility] HIV Screening abstracted Historical Provider HEALTH MAINTENANCE Final Result from Last 3 Months or Most Recently Relevant to Health Maintenance Insurance [facility] [employer] [facility] [employer] Care Teams Lighting Technician Relationship Specialty Start Date End Date Karin Clmeente MD [address] [place] [phone] PCP - General Internal Medicine 01/23/24
--- OUTSIDE RECORDS SUMMARY | 2025-02-12 09:40 | XMS_ITS | Encounter Summary ---
Author Organization [facility] Address [address] [place] [address] Care Team Providers Care Boot And Shoe Repairman Name Role Phone Karin Clemente MD Primary Care Provider Reason for Visit * Reason Onset Date Comments Hospital Follow-up 02/10/2025 Encounter Details Date Type Department Care Team (Late st Contact Info) Description 02/10/2025 Telephone Adult Medicine [address] [phone] Karin Clemente MD [address] [place] [address] Social History Tobacco Use Types Packs/Day Years [...] for your loved ones. For example, child & adolescent psychiatrist or elderly care for an older adult? [...] as of this encounter Progress Notes * Liliana José RN - 02/11/2025 10:20 AM EST Pt booked for 02/19 at 12:30 * Lynn Nash - 02/11/2025 9:19 AM EST Patient called at 9:18 and said she missed this appointment. Needs to reschedule. * Kris Christian RN - 02/10/2025 1:29 PM EST Called and spoke with pt. Pt was seen in er for elevated heart rate 138-142 back down to 70-90s. Erfu for tomorrow with care team * Senia Birmingham - 02/10/2025 1:07 PM EST Hospital/ER follow up appointment needed Hospital patient was treated at: [facility] Was this only an ER visit or was the patient admitted to the hospital? ER Visit only Date of visit if ER visit only: 02/05/2025 If patient was admitted what was the date of discharge? Reason/diagnosis for visit or stay: High Blood Pressure 138/142 When was the patient told to follow up? marline Was visit or stay related to an injury? If yes, what was the date of injury (DOI)? No If yes, was the injury due to: Not 3rd constitution party related documented in this encounter Plan of Treatment Upcoming Encounters Date Type Department Care Team (Late st Contact Info) Description 02/12/2025 10:45 AM EST Office Visit Orthopedic Surgery [facility] [address] [phone] Jonatan Marie DPFreya [address] [phone] 02/19/2025 12:30 PM EST Office Visit Adult Medicine [facility] 444 [place] [address] Shay Gross PA 444 [place] [address] 02/26/2025 8:30 AM EST Consult Vascular Surgery - [place] [address] [facility] 210 [place] [phone] Joselyn Mccann MD 230 [place] [phone] 03/18/2025 1:30 PM EST Consult [facility] 175 [facility] 150 [place] [phone] Heather Roldan PA 230 [place] [phone] 04/29/2025 11:15 AM EST Office Visit Bariatric Surgery [facility] 175 [facility] [address] [place] [phone] Daisy Dan MD 230 [place] [phone] 04/30/2025 11:00 AM EST Office Visit Adult Medicine [facility] [address] [place], [place] [phone] Karin Clemente MD [address] [place] [address] 01/21/2026 11:20 AM EDT Office Visit Gastroenterology - [address] [facility] [address] [place] [address] Amelia Garcia NP 299 [facility] [address] [place] [address] documented as of this encounter Visit Diagnoses Not on filedocumented in this encounter Additional Health Concerns Assessment Noted Time PHQ-9 Depression Total Score: 15 025 11:37 AM EST documented as of this encounter Care Teams Boot And Shoe Repairman Relationship Specialty Start Date End Date Karin Clemente MD [address] [place] [address] PCP - General Internal Medicine 01/23/24 documented as of this encounter
== END 2025-02-12 09:03 | disposition home or self-care (01) ==
LOC: HO.US 09:02
PROVIDERS: PCP Internal Medicine; Visit Provider Nurse Practitioner Family
DX: I83.93 Asymptomatic varicose veins of bilateral lower extremities (principal); I73.9 Peripheral vascular disease, unspecified; M79.89 Other specified soft tissue disorders; E78.00 Pure hypercholesterolemia, unspecified; E66.01 Morbid (severe) obesity due to excess calories; R20.2 Paresthesia of skin
CPT/HCPCS: 93925

== ENCOUNTER → 2025-02-12 09:03 | Outpatient (BNV) | payer OTHER, SELFPAY | PROVIDERS: PCP Internal Medicine; Visit Provider Radiology Diagnostic Radiology | DX: R20.2 Paresthesia of skin (principal) | CPT/HCPCS: 93925 ==

== ENCOUNTER 2025-03-11 11:13 | Emergency (ER) | payer OTHER, SELFPAY ==
--- NOTE | ~2025-03-11 | CT_ITS ---
CLINICAL HISTORY: lower abdominal pain. blood in stool. colitis? CT abdomen and pelvis without contrast Comparison: US/SR - US ABDOMEN - 10/10/23 09:42 EDT CR/SR - XR ABDOMEN W DECUBITUS - 08/29/23 16:32 EDT Findings: No consolidation at the lung bases. Cholelithiasis. No gallbladder wall thickening or pericholecystic fluid. Unremarkable bladder. No hydronephrosis. Right nephrolithiasis measures 2 mm. Left nephrolithiasis measures 2 mm. 1.9 cm fluid attenuation lesion in the right adnexa could be a dominant follicle in the right ovary. The other solid organs are unremarkable. No bowel dilation. A normal appendix is identified. No acute bowel wall thickening. Increased submucosal fat in the terminal ileum and colon could be secondary to body habitus or chronic inflammation No aneurysm. Mild calcified atherosclerotic disease. No lymphadenopathy. No ascites. No acute osseous abnormality. Impression: No acute pathology. This document has been electronically signed by: Montserrat Adams MD on 03/11/2025 18:28:37
--- NOTE | 2025-03-11 12:19 | ED.GENADULT ---
HPI - General Adult General Chief complaint: GI Bleed Stated complaint: Blood In Stool Time Seen by Provider: 03/11/25 20:51 Source: patient Mode of arrival: ambulatory Limitations: no limitations History of Present Illness ED Provider: DR. Caraballo HPI narrative: A 40-year-old female came in for evaluation of abdominal pain, a bloody watery diarrhea x5 days. Patient with history of IBS started to have abdominal cramps and nonbloody watery diarrhea 5 days ago then the diarrhea started to turn into bright red blood loose stool for the last 4 days, last bloody bowel movement was 09:00 today no bowel movement after. Patient started on doxycycline for sinus infection on 03/03 she took it for 5 days and she stopped it because of the diarrhea. Patient is complaining of generalized abdominal tenderness, no nausea, no vomiting, no history of intra-abdominal surgery in the past. No fever, chills. Related Data Home Medications ?Medication ?Instructions ?Recorded ?Confirmed cholecalciferol (vitamin D3) 50 50 mcg PO DAILY 05/07/21 01/07/25 mcg (2,000 unit) tablet fluticasone propionate 230 2 puff PO BID 05/07/21 01/07/25 mcg-salmeterol 21 mcg/actuation HFA inhaler (Advair HFA) folic acid 800 mcg tablet 0.8 mg PO DAILY 05/07/21 01/07/25 multivitamin with folic acid 400 1 tab PO DAILY 05/07/21 01/07/25 mcg tablet (Daily-Meri (with folic acid)) sodium chloride 0.65 % nasal spray spray intranasal 05/07/21 01/07/25 aerosol (Saline Nasal) diphenhydramine HCl 25 mg capsule 25 mg PO TID PRN 05/17/21 01/07/25 (Banophen) biotin 5 mg capsule 5 mg PO DAILY 08/20/21 01/07/25 cetirizine 10 mg tablet 20 mg PO DAILY PRN allergies 08/20/21 01/07/25 fluticasone propionate 50 2 spray intranasal DAILY PRN 09/10/21 01/07/25 mcg/actuation nasal spray,suspension acetaminophen 325 mg tablet 325 mg PO Q4H PRN pain 03/29/22 01/07/25 Previous Rx's ?Medication ?Instructions ?Recorded albuterol sulfate 2.5 mg/3 mL 2.5 mg (3 mL) inhalation Q4-6H PRN 11/07/20 (0.083 %) solution for nebulization bronchospasm #15 mL albuterol sulfate 90 mcg/actuation 2 puff inhalation Q4-6H PRN 11/07/20 aerosol inhaler shortness of breath or wheezing #6.7 grams docusate sodium 100 mg capsule 100 mg PO .DAILY WITH FOOD 30 days 05/06/22 (Colace) #30 caps dicyclomine 20 mg tablet 20 mg PO QID 30 days #120 tabs 11/15/22 benzonatate 200 mg capsule 200 mg PO TID 7 days #21 caps 05/15/23 Lactobacillus rhamnosus GG 10 1 cap PO DAILY #30 caps 08/29/23 billion cell capsule (Culturelle) Proctosol HC 2.5 % topical cream 1 appl OR BID PRN hemorrhoids 08/29/23 perineal applicator #28.35 grams (hydrocortisone) famotidine 40 mg tablet 40 mg PO BID 90 days #180 tabs 08/29/23 cyclobenzaprine 5 mg tablet 5 mg PO TID PRN muscle spasm #14 09/15/23 tabs meclizine 25 mg tablet 25 mg PO TID PRN dizziness 30 days 12/19/23 #20 tabs methocarbamol 750 mg tablet 750 mg PO Q8H PRN pain, moderate 07/27/24 #12 tabs ondansetron 4 mg disintegrating 4 mg PO Q6H PRN nausea and 12/31/24 tablet vomiting 30 days #20 tabs ibuprofen 100 mg/5 mL oral 600 mg (30 mL) PO Q6H PRN pain 30 01/07/25 suspension (Children's Ibuprofen) days #473 mL magnesium glycinate 200 mg (2 x 100 mg magnesium) PO 01/07/25 BID 90 days #360 caps riboflavin (vitamin B2) 100 mg 400 mg (4 x 100 mg) PO DAILY 90 01/07/25 tablet (Vitamin B-2) days #360 tabs sumatriptan succinate 100 mg tablet 50 - 100 mg (0.5 - 1 x 100 mg) PO 01/07/25 .COMPLEX PRN migraine headache 30 days #12 tabs ferrous gluconate 324 mg (38 mg 324 mg PO DAILY 30 days #30 tabs 02/14/25 iron) tablet Allergies Allergy/AdvReac Type Severity Reaction Status Date / Time peanut (PEANUT) Allergy Severe ANAPHYLAXIS Verified 03/11/25 12:22 clindamycin (CLINDAMYCIN) Allergy Mild UNKNOWN Verified 03/11/25 12:22 strawberry Allergy Mild Abdominal Verified 03/11/25 12:22 Pain amoxicillin (From Augmentin) Allergy Unknown Unknown Verified 03/11/25 12:22 cefaclor (From CECLOR) Allergy Unknown UNKNOWN Verified 03/11/25 12:22 clavulanic acid (From Allergy Unknown Unknown Verified 03/11/25 12:22 Augmentin) erythromycin base Allergy Unknown RASH Verified 03/11/25 12:22 (ERYTHROMYCIN BASE) lemon (Lemon) AdvReac Unknown VOMITING Verified 03/11/25 12:22 SEAFOOD Allergy Severe ANAPHYLAXIS Uncoded 03/11/25 12:22 berries Allergy Unknown Unknown Uncoded 03/11/25 12:22 Review of Systems Review of Systems: All other systems are reviewed and are negative Constitutional: Reports as per HPI and Reports no additional constitutional complaints Eyes: Reports as per HPI and Reports no additional eye complaints Reports system reviewed and no additional complaints, except as documented Cardiovascular: Reports as per HPI and Reports no additional cardiovascular complaints Respiratory: Reports as per HPI and Reports no additional respiratory complaints Gastrointestinal: Reports as per HPI and Reports no additional gastrointestinal complaints Genitourinary: Reports no additional female genitourinary complaints Musculoskeletal: Reports no additional musculoskeletal complaints Skin/Breast: Reports system reviewed and no additional complaints, except as docu Psychiatric: Reports no additional psychiatric complaints Endocrine: Reports no additional endocrine complaints Hematologic/Lymphatic: Reports no additional hematologic/lymphatic complaints Allergic/Immunologic: Reports no additional allergic/immunologic complaints Reports system reviewed and no additional complaints, except as documented and Reports Abnormal speech present [facility] Past Medical History Medical History Anxiety Asthma Surgical History Hx of tonsillectomy Family History Family History Father Heart disease Mother Migraine Heart disease Social History Social History Alcohol intake: never Patient Tobacco Use Status: Never used Tobacco Smoked in Last 30 Days: No Use of substances other than those prescribed or required for medical reasons: No Advance Directives: No Advance Directives Information Provided: No Do you have a plan to hurt others: No Plan Physical Exam ED Vital Signs: Vital Signs - 24 hr 03/11/25 12:21 03/11/25 19:28 03/11/25 20:39 Temperature 97.1 F 99.0 F 98.0 F Pulse Rate 88 94 112 H Respiratory Rate 16 16 20 Blood Pressure 153/86 H 108/72 154/80 H Pulse Oximetry 97 96 98 Oxygen Delivery Method Room Air Room Air Room Air 03/12/25 00:24 Temperature 98.0 F Pulse Rate 72 Respiratory Rate 20 Blood Pressure 145/80 H Pulse Oximetry 98 Oxygen Delivery Method Room Air BMI result Body Mass Index 49.4 Vital signs have been reviewed and appear to be correct. Blood pressure elevated. Heart rate normal. Respiratory rate normal. Temperature normal. Oxygen saturation normal. Appearance: Alert. Oriented X3. No acute distress. Head: Normal external exam. Normocephalic. Atraumatic. No Fan signs noted. No raccoon eyes noted Eyes: PERRLA. EOMI. Conjunctiva and sclera normal. Eyelids normal. ENT: TM's Normal. Pharynx normal. Uvula midline. Moist mucous membranes. No trismus noted. No drooling noted. No muffled voice noted. Neck: Normal inspection. Neck supple. FROM. No adenopathy. Thyroid Normal. No meningeal signs. No neck mass noted. CVS: Normal heart rate and rhythm. Heart sound normal. No murmurs noted. Pulses normal throughout. Respiratory: No respiratory distress. Painless inspiration. Breath sounds normal. No wheezes/rales/rhonchi noted. Chest nontender. No accessory muscle usage noted or decreased air movement noted. Abdomen: Soft , obese, mild diffuse tenderness, no rebound tenderness, no guarding, Bowel sounds normal in all 4 quadrants. No distention noted. No organomegaly noted. No visible injury noted. Rectal exam: No external hemorrhoid, no palpable internal hemorrhoid, brown stool with guaiac negative no blood. Back: No CVA tenderness. Full range of motion noted. Skin: Skin warm and dry. Normal skin color. Normal skin turgor. No rashes/lesions/lacerations noted. Extremities: No lower extremity edema. Extremities exhibit normal range of motion. Extremities nontender. Neuro: Oriented X 3. Cranial nerve exam: II-XII are grossly intact No motor deficit. No sensory deficit. Reflexes normal. Course Course Course Narrative: RME: 40-year-old female presents to ED for lower abdominal pain with diarrhea blood in his stool. Patient denies any chest pain or shortness of breath. Patient states blood is bright red. Labs ordered Reevaluation(s) Reevaluation #1: 40-year-old female recently started on doxycycline for sinus infection now presented with abdominal pain and diarrhea, rectal exam is negative for acute bleed, stable H&H, stable vital signs, patient is already have an appointment with her GI next week, patient is unable to give a stool sample while in the ED will start on vancomycin 125 mg q.i.d. for 10 days. Time: 21:22 Reevaluation #2: Patient received 1 dose of vancomycin before getting result for C diff, will discontinue vancomycin, patient instructed to keep the appointment with her GI next week, will discharge the patient. Time: 23:49 Medications Administered Discontinued Medications Generic Name Dose Route Start Last Admin Trade Name Freq PRN Reason Stop Dose Admin Vancomycin HCl 125 mg 03/11/25 21:17 03/11/25 21:59 Vancomycin Hcl 125 Mg Capsule PO 03/11/25 21:18 125 mg ONCE ONE Administration Medical Decision Making Differential Diagnosis Differential Diagnoses: The differential diagnosis associated with the presentation includes ( colitis, diverticulitis, acute appendicitis, acute pancreatitis, gastroenteritis, pancreatitis , C diff colitis, electrolyte derangement, severe anemia.) Admission/Observation Consideration of admission/observation: Escalation of care including admission/observation considered Lab Data MDM Lab Attestation statement: I reviewed the patient's lab results. 03/11/25 12:46 03/11/25 12:46 Labs: Lab Results 03/11/25 03/11/25 03/11/25 Range/Units 12:46 19:34 21:08 WBC 9.6 (4.8-10.8) X10*3/uL RBC 4.83 (4.20-5.50) X10*6/uL Hgb 13.1 (12.0-16.0) g/dl Hct 40.8 (37.0-47.0) % MCV 84.5 (80.0-98.0) fL MCH 27.1 (27.0-33.0) pg MCHC 32.1 (31.0-35.0) g/dl RDW 13.5 (11.0-16.0) % Plt Count 215 (160-400) X10*3/uL MPV 10.0 (9.4-12.3) fL Immature Gran % (Auto) 0.3 (0.0-0.4) % Neut % (Auto) 71.0 (45-73) % Lymph % (Auto) 22.2 (20-40) % Wagoner % (Auto) 4.8 (2-11) % Eos % (Auto) 1.3 (0-4) % Baso % (Auto) 0.4 (0-2) % Lymph # (Auto) 2.1 (1.2-4.9) X10*3/uL Wagoner # (Auto) 0.5 (0.1-1.2) X10*3/uL Eos # (Auto) 0.1 (0.0-0.4) X10*3/uL Baso # (Auto) 0.0 (0.0-0.2) X10*3/uL Abs Immat Gran (auto) 0.03 (0.00-0.03) X10*3/uL Absolute Neuts (auto) 6.8 (2.0-8.3) x10*3/uL Absolute Nucleated RBC 0.000 (0.0-0.012) X10*3/uL Nucleated RBC % (auto) 0.0 (0.0-0.2) /100WBC PT 13.1 (11.2-13.5) SEC INR 1.1 (0.9-1.1) APTT 29.1 (26.7-34.1) SEC Sodium 140 (135-145) mmol/L Potassium 3.8 (3.3-5.1) mmol/L Chloride 107 (96-108) mmol/L Carbon Dioxide 26 (22-29) mmol/L Anion Gap 11 L (12-20) BUN 9 (9-16) mg/dL Creatinine 0.87 (0.5-1.4) mg/dL Estim Creat Clear Calc 118.2 Estimated GFR > 60 Random Glucose 91 (60-115) mg/dL Calcium 9.3 (8.4-10.2) mg/dL Total Bilirubin 0.6 (0.0-1.0) mg/dL AST 20 (5-31) U/L ALT 20 (0-31) U/L Alkaline Phosphatase 78 (39-117) U/L Total Protein 6.9 (6.5-8.0) g/dL Albumin 4.1 (3.5-5.0) g/dL Beta HCG, Quant < 2 mIU/mL Urine Color Dark Yellow Urine Appearance Cloudy Urine pH 5.5 (5.0-9.0) Ur Specific [place] >= 1.030 H (1.005-1.025) Urine Protein Trace (Neg-Trace) mg/dL Urine Glucose (UA) Negative (Negative) mg/dL Urine Ketones Trace (Negative) mg/dL Urine Blood Negative (Negative) Urine Nitrite Negative (Negative) Ur Leukocyte Esterase Negative (Negative) Stool Occult Blood NEGATIVE (NEGATIVE) Stl C. cayetanensis PCR (Not Detect.) Stool Rotavirus A PCR (Not Detect.) Stl Adenov F 40/41 PCR (Not Detect.) Stool Astrovirus (PCR) (Not Detect.) Stool Campylobacter PCR (Not Detect.) Stool Cryptosporidium PCR (Not Detect.) Stl Sh Tox Pr E STEC PCR (Not Detect.) Stool E coli O157 PCR (Not Detect.) Stl Enterotoxigenic E PCR (Not Detect.) Stool EPEC (PCR) (Not Detect.) Stool EAEC (PCR) (Not Detect.) Stl E. histolytica PCR (Not Detect.) Stool Giardia Lamblia PCR (Not Detect.) Stl P. shigelloides PCR (Not Detect.) Stool Salmonella PCR (Not Detect.) Stool Sapovirus (PCR) (Not Detect.) Stl Shigella/EIEC PCR (Not Detect.) St Y.enterocolitica PCR (Not Detect.) Stool Vibrio (PCR) (Not Detect.) Stl Vibrio cholerae PCR (Not Detect.) Stl Norovirus GI/GII PCR (Not Detect.) C. difficile Tox B Gene (Negative) 03/11/25 Range/Units 21:36 WBC (4.8-10.8) X10*3/uL RBC (4.20-5.50) X10*6/uL Hgb (12.0-16.0) g/dl Hct (37.0-47.0) % MCV (80.0-98.0) fL MCH (27.0-33.0) pg MCHC (31.0-35.0) g/dl RDW (11.0-16.0) % Plt Count (160-400) X10*3/uL MPV (9.4-12.3) fL Immature Gran % (Auto) (0.0-0.4) % Neut % (Auto) (45-73) % Lymph % (Auto) (20-40) % Wagoner % (Auto) (2-11) % Eos % (Auto) (0-4) % Baso % (Auto) (0-2) % Lymph # (Auto) (1.2-4.9) X10*3/uL Wagoner # (Auto) (0.1-1.2) X10*3/uL Eos # (Auto) (0.0-0.4) X10*3/uL Baso # (Auto) (0.0-0.2) X10*3/uL Abs Immat Gran (auto) (0.00-0.03) X10*3/uL Absolute Neuts (auto) (2.0-8.3) x10*3/uL Absolute Nucleated RBC (0.0-0.012) X10*3/uL Nucleated RBC % (auto) (0.0-0.2) /100WBC PT (11.2-13.5) SEC INR (0.9-1.1) APTT (26.7-34.1) SEC Sodium (135-145) mmol/L Potassium (3.3-5.1) mmol/L Chloride (96-108) mmol/L Carbon Dioxide (22-29) mmol/L Anion Gap (12-20) BUN (9-16) mg/dL Creatinine (0.5-1.4) mg/dL Estim Creat Clear Calc Estimated GFR Random Glucose (60-115) mg/dL Calcium (8.4-10.2) mg/dL Total Bilirubin (0.0-1.0) mg/dL AST (5-31) U/L ALT (0-31) U/L Alkaline Phosphatase (39-117) U/L Total Protein (6.5-8.0) g/dL Albumin (3.5-5.0) g/dL Beta HCG, Quant mIU/mL Urine Color Urine Appearance Urine pH (5.0-9.0) Ur Specific [place] (1.005-1.025) Urine Protein (Neg-Trace) mg/dL Urine Glucose (UA) (Negative) mg/dL Urine Ketones (Negative) mg/dL Urine Blood (Negative) Urine Nitrite (Negative) Ur Leukocyte Esterase (Negative) Stool Occult Blood (NEGATIVE) Stl C. cayetanensis PCR Not Detected (Not Detect.) Stool Rotavirus A PCR Not Detected (Not Detect.) Stl Adenov F 40/41 PCR Not Detected (Not Detect.) Stool Astrovirus (PCR) Not Detected (Not Detect.) Stool Campylobacter PCR Not Detected (Not Detect.) Stool Cryptosporidium PCR Not Detected (Not Detect.) Stl Sh Tox Pr E STEC PCR Not Detected (Not Detect.) Stool E coli O157 PCR Not applicable (Not Detect.) Stl Enterotoxigenic E PCR Not Detected (Not Detect.) Stool EPEC (PCR) Detected A (Not Detect.) Stool EAEC (PCR) Not Detected (Not Detect.) Stl E. histolytica PCR Not Detected (Not Detect.) Stool Giardia Lamblia PCR Not Detected (Not Detect.) Stl P. shigelloides PCR Not Detected (Not Detect.) Stool Salmonella PCR Not Detected (Not Detect.) Stool Sapovirus (PCR) Not Detected (Not Detect.) Stl Shigella/EIEC PCR Not Detected (Not Detect.) St Y.enterocolitica PCR Not Detected (Not Detect.) Stool Vibrio (PCR) Not Detected (Not Detect.) Stl Vibrio cholerae PCR Not Detected (Not Detect.) Stl Norovirus GI/GII PCR Not Detected (Not Detect.) C. difficile Tox B Gene NEGATIVE (Negative) Independent Interpretation I performed an independent interpretation of an: CT Scan ( abdomen pelvis: No acute pathology.) Radiology Impression Discussion of test interpretation with radiology: I have reviewed the radiologist's reading. Discharge Plan Discharge Clinical Impression: Abdominal pain Patient Disposition: Home, Self-Care Instructions: Abdominal Pain (ED) Prescriptions: No Action docusate sodium [Colace] 100 mg capsule 100 mg PO .DAILY WITH FOOD 30 Days Qty: 30 6RF ondansetron 4 mg tablet,disintegrating 4 mg PO Q6H PRN (Reason: nausea and vomiting) 30 Days Qty: 20 3RF ferrous gluconate 324 mg (38 mg iron) tablet 324 mg PO DAILY 30 Days Qty: 30 3RF albuterol sulfate 2.5 mg /3 mL (0.083 %) solution for nebulization 2.5 mg inhalation Q4-6H PRN (Reason: bronchospasm) Qty: 15 0RF albuterol sulfate 90 mcg/actuation HFA aerosol inhaler 2 puff inhalation Q4-6H PRN (Reason: shortness of breath or wheezing) Qty: 6.7 0RF benzonatate 200 mg capsule 200 mg PO TID 7 Days Qty: 21 0RF cyclobenzaprine 5 mg tablet 5 mg PO TID PRN (Reason: muscle spasm) Qty: 14 0RF methocarbamol 750 mg tablet 750 mg PO Q8H PRN (Reason: pain, moderate) Qty: 12 0RF diphenhydramine HCl [Banophen] 25 mg capsule 25 mg PO TID PRN biotin 5 mg capsule 5 mg PO DAILY cetirizine 10 mg tablet 20 mg PO DAILY PRN (Reason: allergies) fluticasone propionate 50 mcg/actuation spray,suspension 2 spray intranasal DAILY PRN acetaminophen 325 mg tablet 325 mg PO Q4H PRN (Reason: pain) dicyclomine 20 mg tablet 20 mg PO QID 30 Days Qty: 120 1RF cholecalciferol (vitamin D3) 50 mcg (2,000 unit) tablet 50 mcg PO DAILY Advair HFA 230-21 mcg/actuation HFA aerosol inhaler 2 puff PO BID Saline Nasal 0.65 % aerosol,spray intranasal folic acid 800 mcg tablet 0.8 mg PO DAILY multivitamin with folic acid [Daily-Meri (with folic acid)] 400 mcg tablet 1 tab PO DAILY magnesium glycinate 100 mg magnesium capsule 200 mg PO BID 90 Days Qty: 360 3RF riboflavin (vitamin B2) [Vitamin B-2] 100 mg tablet 400 mg PO DAILY 90 Days Qty: 360 3RF sumatriptan succinate 100 mg tablet 50 - 100 mg PO .COMPLEX PRN (Reason: migraine headache) 30 Days Qty: 12 6RF Rx Instructions: 50 - 100 mg orally at onset of headache, may repeat in 2 hrs PRN; max 2 tabs per day or 4 tabs/week (may take with Ibuprofen) ibuprofen [Children's Ibuprofen] 100 mg/5 mL suspension 600 mg PO Q6H PRN (Reason: pain) 30 Days Qty: 473 3RF Rx Instructions: (avoid Maurice flavor d/t maurice allergy) Culturelle 10 billion cell capsule 1 cap PO DAILY Qty: 30 6RF famotidine 40 mg tablet 40 mg PO BID 90 Days Qty: 180 1RF hydrocortisone [Proctosol HC] 2.5 % cream with perineal applicator 1 appl OR BID PRN (Reason: hemorrhoids) Qty: 28.35 3RF meclizine 25 mg tablet 25 mg PO TID PRN (Reason: dizziness) 30 Days Qty: 20 3RF Referrals: Karin Clemente MD [Primary Care Provider, Internal Medicine] Stand Alone Forms: Work/School Release Interventions: ED Discharge Assessment Last Done: 03/12/25 00:24 Discharge Date/Time: 03/12/25 00:25 Print Language: Serbian
[2025-03-11 12:21] VITALS: BP 153/86; PULSE 88; RESP 16; TEMP 36.2; O2SAT 97; BMI 49.4
[2025-03-11 12:51] LABS: MANUAL DIFF FLAG NO
[2025-03-11 12:52] LABS: Hematocrit 40.8 % (37.0-47.0); Hemoglobin 13.1 g/dl (12.0-16.0); Imm Gran Abs Auto 0.03 X10*3/uL (0.00-0.03); Imm Gran Pct Auto 0.3 % (0.0-0.4); Lymphocytes Absolute Auto 2.1 X10*3/uL (1.2-4.9); Mean Corpuscular HGB Conc 32.1 g/dl (31.0-35.0); Mean Corpuscular Hemoglobin 27.1 pg (27.0-33.0); Mean Corpuscular Volume 84.5 fL (80.0-98.0); NRBC Abs Auto 0.000 X10*3/uL (0.0-0.012); NRBC Pct Auto 0.0 /100WBC (0.0-0.2); Platelet Count 215 X10*3/uL (160-400); Red Blood Count 4.83 X10*6/uL (4.20-5.50); White Blood Count 9.6 X10*3/uL (4.8-10.8)
[2025-03-11 12:58] LABS: INTERNATIONAL NORM RATIO 1.1 (0.9-1.1); Prothrombin Time 13.1 SEC (11.2-13.5)
[2025-03-11 13:01] LABS: Partial Thromboplastin Time 29.1 SEC (26.7-34.1)
[2025-03-11 13:17] LABS: Alanine Aminotransferase 20 U/L (0-31); Albumin Level 4.1 g/dL (3.5-5.0); Alkaline Phosphatase 78 U/L (39-117); Anion Gap 11 (12-20); Aspartate Amino Transferase 20 U/L (5-31); Blood Urea Nitrogen 9 mg/dL (9-16); Calcium 9.3 mg/dL (8.4-10.2); Carbon Dioxide 26 mmol/L (22-29); Chloride 107 mmol/L (96-108); Creatinine Clr Calc Pharmacy 118.2; Estimated Glomerular Filt Rate > 60; Potassium 3.8 mmol/L (3.3-5.1); Sodium 140 mmol/L (135-145); Total Protein 6.9 g/dL (6.5-8.0)
[2025-03-11 19:28] VITALS: BP 108/72; PULSE 94; RESP 16; TEMP 37.2; O2SAT 96
[2025-03-11 19:54] LABS: Appearance Urine Cloudy; Glucose Urine UA Negative (Negative); PH 5.5 (5.0-9.0); Specific Gravity - Urine >= 1.030 (1.005-1.025)
[2025-03-11 20:39] VITALS: BP 154/80; PULSE 112; RESP 20; TEMP 36.7; O2SAT 98
[2025-03-11 21:38] LABS: OBS Int Ctl Valid YES; OBS1 NEGATIVE (NEGATIVE)
[2025-03-11 22:33] LABS: CDiff Gene PCR NEGATIVE (Negative)
--- OUTSIDE RECORDS SUMMARY | 2025-03-11 23:27 | XMS_ITS | Data Portability ---
Author Organization [place] - 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 [id number] Active 2014 Nasal polyp, unspecifi ed; Note: Date Diagnosed : 03/05/2015 4:09 PM (J33.9) Not Available [facility] 4 02:44:35 Deviated nasal septum [id number] Active 2014 Deviated nasal septum; Note: Date Diagnosed : 03/05/2015 4:09 PM (J34.2) Not Available [facility] 4 02:44:37 Allergic rhinitis 43206606 Active 2015 Perennial allergic rhinitis; Note: Date Diagnosed : 04/17/2015 11:43 AM (J30.89) Not Available [facility] 4 02:44:28 Impacted cerumen of bilateral ears [id number] 02288 Active 2022 Impacted cerumen, bilateral ; Note: Date Diagnosed : 3 1:53 PM (H61.23) Not Available [facility] 4 02:44:27 Benign paroxysma l positiona l vertigo 513069304 Active 2022 Benign paroxysma l vertigo, right ear; Note: Date Diagnosed : 3 1:52 PM (H81.11) Not Available [facility] 4 02:44:34 Bilateral tinnitus [id number] 02 Active 2024 MADYSON CHRISTENSEN [place], [facility] [address] [place] [address],[place] [address], [facility] [place], [address] , [facility] 5 16:09:05 Referred otalgia of right ear [id number] 93966 Active 2024 CALIXTO MELGAR MD [address] [place] [address],[place] [address], [facility] [place], [address] , [facility] 5 16:37:36 Problem Notes None recorded. Procedures Surgical History Date Name Laterality Status Provider Name and Address Organization Details Recorded Time 07/02/2024 Air & Speech Audio with Tymps - 36428, 81814 & 14883 completed MADYSON CHRISTENSEN [place], [facility] [address] [facility],[place] [address], [place], [address], [facility] - [facility] 07/02/2024 16:09:18 Imaging Results None recorded. Procedure [...] mg tablet 07/02 completed Medicati on ID: [id number] D uration Value: 3 Brand Name: oxycodon [...] 6.5 % 07/02 completed Medicati on ID: [id number] D uration Value: 5 Brand Name: Ear [...] mg tablet 07/02 completed Medicati on ID: [id number] D uration Value: 10 Brand Name: ibuprofe n Send Method: E-Prescr ibed Sub s Allowed: subs PRICILLA Lopes al Instruct ion: TAKE 1 TABLET BY MOUTH EVERY 8 HOURS NEEDED FOR PAIN Med icationG enericNa me: ibuprofe n Not Available Not Available Not Available levofloxa josh 500 mg tablet 07/02 completed Medicati on ID: [id number] D uration Value: 7 Brand Name: levoflox [...] mcg tablet 07/02 completed Medicati on ID: [id number] D uration Value: 28 Brand Name: Tri-Prev [...] Updated DateTime 07/02/2024 165.1 cm 53.3 kg/m2 334192.56 g Lindsay Freire [place] - [facility] 07/02/2024 16:21:17 Social History None recorded. [...] ICD10 Code Diagnosis IMO Codes Diagnosis Note [id number] CALIXTO MELGAR MD [facility] [address] [address] 07/02/2024 14:57:13 07/02/2024 16:39:08 Bilateral tinnitus [id number] H93.13 Audiologic al evaluation results: Right ear: Normal hearing with excellent word recognitio n. Left ear: Normal hearing with excellent word recognitio n. Tympanomet ry: Right Ear:Type A Left Ear:Type A Referred o talgia of right ear [id number] H92.01 M26.621 M79.11 The patient complains of [...] Guarantor Name 07/02/2024 1 [facility] - [employer] (MEDICAID REPLACEMENT - HMO) [employer] Krsytal L Deforge [id number] Krsytal L Deforge Notes Date Note Type [...] discretion. No recent sx. CALIXTO MELGAR MD [address] [place] [address], [place], [address], [place] - [facility] 07/02/2024 16:39:55 OBGyn Episode No OBEpisode recorded.
[2025-03-12 00:24] VITALS: BP 145/80; PULSE 72; RESP 20; TEMP 36.7; O2SAT 98
[2025-03-12 09:03] LABS: E. coli EAEC Not Detected (Not Detect.); E. coli EPEC Detected (Not Detect.); E. coli ETEC Not Detected (Not Detect.); E. coli STEC Not Detected (Not Detect.); Shigella sp./EIEC Not Detected (Not Detect.)
== END 2025-03-12 00:25 | disposition home or self-care (01) ==
PROVIDERS: Physician Assistant; Emergency Provider Emergency Medicine; PCP Internal Medicine
DX: R10.30 Lower abdominal pain, unspecified (principal); R19.7 Diarrhea, unspecified; K92.1 Melena; F41.9 Anxiety disorder, unspecified; J45.909 Unspecified asthma, uncomplicated; Z79.899 Other long term (current) drug therapy; Z79.51 Long term (current) use of inhaled steroids
CPT/HCPCS: 36415; 74176; 80053; 81003; 82272; 84702; 85025; 85610; 85730; 87493; 87507; 99284

== ENCOUNTER → 2025-03-11 16:40 | Outpatient (BNV) | payer OTHER, SELFPAY | PROVIDERS: PCP Internal Medicine; Visit Provider Radiology Diagnostic Radiology | DX: K92.1 Melena (principal); R10.30 Lower abdominal pain, unspecified | CPT/HCPCS: 74176 ==

== ENCOUNTER 2025-03-14 14:14 | Outpatient (AMB) | payer OTHER, SELFPAY ==
--- OUTSIDE RECORDS SUMMARY | 2025-03-13 08:00 | XMS_ITS | Encounter Summary ---
Author Organization [facility] Address [address] [place] [address] Care Team Providers Care Web Communications Specialist Name Role Phone Karin Clemente MD Primary Care Provider [phone] Reason for Visit * Reason Comments [facility] Abd pain Encounter Details Date Type Department Care Team (Late st Contact Info) Description 03/13/2025 8:00 AM EST Office Visit Adult Medicine [address] [phone] Shay Gross PA [address] [place] [id number] Viral gastroenteritis (Primary Dx); BRBPR (bright red blood per rectum); Nausea and vomiting, unspecified vomiting type; Acute diarrhea Social History Tobacco Use Types Packs/Day Years [...] for your loved ones. For example, child development instructor or elderly care for an older adult? [...] Sign Reading Time Taken Comments Blood Pressure 134/87 03/13/2025 8:15 AM EST Pulse 92 03/13/2025 8:15 AM EST Temperature 36.3 C (97.4 F) 03/13/2025 8:15 AM EST Respiratory Rate 14 03/13/2025 8:15 AM EST Oxygen Saturation 97% 03/13/2025 8:15 AM EST Inhaled Oxygen Concentration - - Weight 136 kg (300 lb 8 oz) 03/13/2025 8:[address] Height 165.1 cm (5' 5 ) 03/13/2025 8:15 AM EST Body Mass Index 50.01 03/13/2025 8:15 AM EST documented in this encounter Progress Notes * MIGUEL ÁNGEL Santana - 03/13/2025 8:00 AM EST CHIEF COMPLAINT: [facility] (Abd pain) IDENTIFIER: Zina Barber is a 40 y.o. old female. HPI: 40-year-old female presents for ED follow-up. Patient has IBS and was seen at [facility] on 03/11 for evaluation of bloody and watery diarrhea. Patient reports symptoms began 3 days previously, tells me she developed cramping abdominal pain and felt as if she had to have a bowel movement, went to the bathroom but sat on the toilet for 2 hours before any bowel movement occurred. States at that time she had watery diarrhea and noticed blood. States she also developed significant vomiting and retching. Patient tells me she wonders if she ate something bad as she had some wings and a wrap 2 days previously for her birthday but felt fine that night and the next day. States symptoms wax and wane but she continued to have some blood in the stool and therefore she went to the ED for evaluation. At the ED, abdominal exam noted some mild diffuse tenderness and rectal exam showed no external hemorrhoids, no palpable internal hemorrhoids and also noted brown stool which was guaiac negative. Patient ultimately was able to provide a stool sample and states there was some blood with the stool however stool PCR testing was negative. Patient did report that she was given doxycycline for upper respir atory infection by it urgent care a few days prior to onset of symptoms however states she really was not taking it and had not taken it for a day prior to the onset of symptoms. Because of the recent antibiotic use, patient was presumptively treated with a single dose of vancomycin for presumptiveC. difficile, and was to have received continued prescription of this however, once stool studies returned negative, this was discontinued. Labs were obtained which showed WBC 9.6, Hgb 13.1, HCT 40.8, sodium 140, potassium 3.8, chloride 107, calcium 9.3, glucose 91, BUN 9, creatinine 0.87, AST 20, ALT 20, alk phos 78, albumin 4.1, serum hCG negative, urinalysis negative. CT of the abdomen and pelv is showed no acute pathology. Patient was diagnosed with abdominal pain and discharged home. On exam today, patient denies any further episodes of rectal bleeding, nausea, vomiting, diarrhea; states there still is some soreness about her abdomen. Patient does have appointment next week with GI and tells me she has never had a colonoscopy. ROS: GENERAL: No malaise, significant weight loss or fever. RESPIRATORY: Denies shortness of breath. CARDIOVASCULAR: Denies chest pain, palpitations. GI: Reports nausea, vomiting, diarrhea, rectal bleeding (resolved), abdominal tenderness. PAST MEDICAL HISTORY: Patient Active Problem List Diagnosis Date Noted Bilateral tinnitus 07/02/2024 Referred otalgia of right ear 07/02/2024 Chronic gastric ulcer with obstruction 01/08/2024 Kidney stones 01/08/2024 Moderate asthma 01/08/2024 Family history of cancer 01/08/2024 Hx of splenomegaly 01/08/2024 Hx of Helicobacter infection 01/08/2024 Morbid obesity with BMI of 45.0-49.9, adult ([facility] V24, [facility] V28) 01/08/2024 Benign paroxysmal positional vertigo 03/28/2023 [...] Tenosynovitis, de Quervain 02/11/2014 Dyshidrotic eczema 02/11/2014 Surgical History[1] SOCIAL HISTORY: Social History Tobacco Use Smoking status: Never Passive exposure: Never Smokeless tobacco: Never Substance Use Topics Alcohol use: No FAMILY HISTORY: Family History[2] Family Status Relation Name Status Mother Father Alive MGM MGF Aunt mom Alive Uncle PGF No partnership data on file MEDICATIONS DISCONTINUED/REORDERED: Medications Discontinued During This Encounter Medication Reason ondansetron ODT (ZOFRAN-ODT) 4 mg disintegrating tablet Therapy completed ACTIVE MEDICATIONS: Medications Taking[3] ALLERGIES: Allergies[4] PHYSICAL EXAM: Visit Vitals BP 134/87 Pulse 92 Temp 36.3 ??C (97.4 ??F) (Temporal) Resp 14 Ht 1.651 m (65 ) Wt 136 kg (300 lb 8 oz) LMP 03/04/2025 SpO2 97% BMI 50.01 kg/m?? OB Status Having periods Smoking Status Never BSA 2.35 m?? APPEARANCE: Alert and in no acute distress EYES: PERRL, conjunctiva and sclera normal. HEART: RRR LUNG: Pulmonary effort NEURO: Awake, alert and oriented x 3 LABS: Reviewed from ED Lab Results Component Value Date WBC 7.7 02/05/2025 HGB 12.8 02/05/2025 HCT 41.4 02/05/2025 MCV 84.7 02/05/2025 Lab Results Component Value Date NA 138 02/05/2025 K 4.2 02/05/2025 CO2 30 02/05/2025 CL 104 02/05/2025 BUN 9 02/05/2025 ALKPHOS 95 02/05/2025 Lab Results Component Value Date CHOL 193 08/09/2023 LDL 109 (A) 08/09/2023 HDL 60 08/09/2023 TRIG 120 08/09/2023 IMAGING: Reviewed from ED IMPRESSION: 1. Viral gastroenteritis 2. BRBPR (bright red blood per rectum) 3. Nausea and vomiting, unspecified vomiting type 4. Acute diarrhea PLAN: 40-year-old female with nausea, vomiting, diarrhea, bright red blood per rectum. Symptoms consistent with viral gastroenteritis, patient did have negative stool studies done at the ED. CT of the abdomen did not show any acute findings however, there was a notation of the possibility of chronic inflammation and patient reports a history of IBS however I do not see any documentation of this. Would also consider possible internal hemorrhoids as cause of bright red blood, no external hemorrhoids were noted on physical exam however patient reported spending quite a prolonged period of time on the toilet and, also was retching and vomiting while seated on the toilet which would not have cause increased pressure leading to enlargement and possible rupture of internal hemorrhoids causing the bleeding. Patient's symptoms have resolved, no further testing indicated at this time. Patient does haveappointment next week with GI and is advised to discuss colonoscopy with them. Patient also has appointment next month with PCP for physical exam which she is encouraged to keep. Patient instructed to return if symptoms worsen or do not improve; patient acknowledges understandsand agrees with plan Medication and lab orders: No orders of the defined types were placed in this encounter. Other orders: None [1] Past Surgical History: Procedure Laterality Date TONSILLECTOMY TONSILLECTOMY PROCEDURE: HISTORICAL TONSILLECTOMY TYMPANOSTOMY TUBE PLACEMENT PROCEDURE: HISTORICAL PE TUBES; COMMENT: ear tubes [2] Family History Problem Relation Name Age of Onset Heart attack Mother 53 , morbid obesity Heart attack Father stroke- no further paternal family information Diabetes Maternal Grandmother obesity, osteoporosis Colon cancer Maternal Grandfather Other (Other: heart attack) Father Coronary artery disease Father Prostate cancer Maternal Grandfather Breast cancer Aunt mom 45 Liver disease Uncle maternal uncle [3] Outpatient Medications Marked as Taking for the 03/13/25 encounter (Office Visit) with MIGUEL ÁNGEL Santana Medication Sig Dispense Refill acetaminophen (TYLENOL) 325 [...] (one) time each day. 90 tablet 1 clobetasoL (TEMOVATE) 0.05 % topical solution clotrimazole (LOTRIMIN) 1 % cream APPLY 1 APPLICATION OF CREAM TOPICALLY ONCE DAILY TO AFFECTED AREA/SKIN FOLDS diphenhydrAMINE (BENADRYL) 25 mg capsule Take 1 capsule (25 mg total) by mouth every 6 (six) hours if needed for allergies. (TAKE 1-2 TABLETS WITH ALLERGY REACTIONS). EPINEPHrine (EPIPEN) 0.3 mg/0.3 mL injection INJECT [...] fluticasone propionate (FLONASE) 50 mcg/actuation nasal spray Use 2 spray(s) in each nostril once daily 48 g 0 folic acid (FOLVITE) 800 mcg tablet Take 1 tablet by mouth once daily 90 tablet 1 ibuprofen (ADVIL,MOTRIN) 100 mg/5 mL suspension Take 20 mL (400 mg total) by mouth every 8 (eight) hours if needed for mild pain. 1800 mL 1 ketoconazole (NIZORAL) 2 % cream Apply topically 1 (one) time each day. 30 g 2 ketoconazole (NIZORAL) 2 % shampoo APPLY SHAMPOO TOPICALLY TO SCALP 2 TO 3 TIMES A WEEK, LEAVE ON FOR 5 MINUTES THEN RINSE OFF Lactobac. rhamnosus GG-inulin ([facility]) 10 billion cell -200 mg capsule Take bymouth. magnesium glycinate 100 mg magnesium capsule Take 200 mg (2 capsules total) by mouth 2 (two) times a day. meclizine (ANTIVERT) 25 mg tablet Take 1 tablet (25 mg total) by mouth 3 (three) times a day if needed for dizziness. 30 tablet 5 multivitamin (Tab-A-Meri) tablet Take 1 tablet by mouth 1 (one) time each day. 90 tablet 1 Nasal [place], sodium chloride, 0.65 % nasal spray USE 1 DOSE IN EACH NOSTRIL 4 TIMES DAILY NEEDEDFOR CONGESTION 44 mL 2 psyllium (METAMUCIL) 0.4 gram capsule Take 2 [...] if needed for wheezing. 36 g 2 [DISCONTINUED] ondansetron ODT (ZOFRAN-ODT) 4 mg disintegrating tablet DISSOLVE 1 TABLET IN MOUTH EVERY 6 HOURS NEEDED FOR NAUSEA AND VOMITING [4] Allergies Allergen Reactions Amoxicillin-Pot Clavulanate Other Reaction(s): Numbness, tingling or swelling of the lips, tongue or mouth Cefaclor Clindamycin Itching Lemon Flavor Macrolide Antibiotics Methylisothiazolinone Other TESTED POSITIVE BY SCHOOL PROGRAM DIRECTOR Peanut SCHO[employer] PROGRAM DIRECTOR TESTED POSITIVE [place] documented in this encounter Plan of Treatment Upcoming Encounters Date Type Department Care Team (Late st Contact Info) Description 03/21/2025 8:20 AM EST Office Visit Gastroenterology - [address] [facility] [address] [place] [phone] Amelia Garcia NP [address] [facility] [address] [place] [address] 04/10/2025 11:00 AM EST Evaluation [facility] [place] [address] [facility] [address] [place] [phone] Ines Tidwell, PT 04/29/2025 11:15 AM EST Office Visit Bariatric Surgery - [place] [address] [facility] [address] [place] [phone] Daisy Dan MD [address] [place] [address] 04/30/2025 11:00 AM EST Office Visit Adult Medicine [facility] [address] [place], [place] [phone] Karin Clemente MD [address] [place], [place] 05/07/2025 3:30 PM EST Consult Vascular Surgery - [place] [address] [place] [phone] Annamaria Artis PA [address] [place] [phone] 05/21/2025 10:30 AM EST Office Visit Orthopedic Surgery - [place] [address] [facility] [address] [place] [address] Jonatan Marie, DPM [address] [facility] [address] [place] [address] 07/17/2025 9:00 AM EDT Consult [facility] - [place] [address] [facility] [address] [place] [phone] Heather Roldan PA [address] [place] [address] 01/21/2026 11:20 AM EDT Office Visit Gastroenterology - 299 [facility] [address] [facility] [address] [place] [address] Amelia Garcia, ES [address] [facility] [address] [place] [address] documented as of this encounter Visit Diagnoses Diagnosis Viral gastroenteritis- Primary Intestinal infection due to other organism, NEC BRBPR (bright red blood per rectum) Hemorrhage of rectum and anus Nausea and vomiting, unspecified vomiting type Acute diarrhea Diarrhea documented in this encounter Discontinued Medications Medication Sig Discontinue Reason Start Date End Da te ondansetron ODT (ZOFRAN-ODT) 4 mg disintegrating tablet DISSOLVE 1 TABLET IN MOUTH EVERY 6 HOURS NEEDED FOR NAUSEA AND VOMITING Therapy completed 01/01/2025 03/13/2025 documented as of this encounter Additional Health Concerns Assessment Noted Time PHQ-9 Depression Total Score: 15 025 11:37 AM EST documented as of this encounter Care Teams Web Communications Specialist Relationship Specialty Start Date End Date Karin Clemente MD [address] [place] [phone] PCP - General Internal Medicine 01/23/24 documented as of this encounter
--- NOTE | 2025-03-14 14:09 | A.OFFVIS_ITS ---
Vital Signs 03/14/25 14:10 Height 5 ft 5 in Weight 300 lb BMI 49.9 Intake Visit Reasons: F/U Sleep order Intake Note: Patient presents follow up Migraine medication. Insulation Board Back Tender Required: No Accompanied by: Self / Same As Patient Allergies peanut (PEANUT) Allergy (Severe, Verified 03/14/25 14:10) ANAPHYLAXIS clindamycin (CLINDAMYCIN) Allergy (Mild, Verified 03/14/25 14:10) UNKNOWN strawberry Allergy (Mild, Verified 03/14/25 14:10) Abdominal Pain amoxicillin (From Augmentin) Allergy (Unknown, Verified 03/14/25 14:10) Unknown cefaclor (From CECLOR) Allergy (Unknown, Verified 03/14/25 14:10) UNKNOWN clavulanic acid (From Augmentin) Allergy (Unknown, Verified 03/14/25 14:10) Unknown erythromycin base (ERYTHROMYCIN BASE) Allergy (Unknown, Verified 03/14/25 14:10) RASH lemon (Lemon) Adverse Reaction (Unknown, Verified 03/14/25 14:10) VOMITING SEAFOOD Allergy (Severe, Uncoded 03/14/25 14:10) ANAPHYLAXIS berries Allergy (Unknown, Uncoded 03/14/25 14:10) Unknown Medication List - Last Reconciled 03/14/25 by ALFONSO Peterson acetaminophen 325 mg PO Q4H PRN albuterol sulfate 2.5 mg (3 mL) inhalation Q4-6H PRN albuterol sulfate 90 mcg/actuation 2 puffs inhalation Q4-6H PRN benzonatate 200 mg PO TID 7 days biotin 5 mg PO DAILY cetirizine 20 mg PO DAILY PRN cholecalciferol (vitamin D3) 50 mcg PO DAILY cyclobenzaprine 5 mg PO TID PRN dicyclomine 20 mg PO QID 30 days diphenhydramine HCl (Banophen) 25 mg PO TID PRN docusate sodium (Colace) 100 mg PO .DAILY WITH FOOD 30 days famotidine 40 mg PO BID 90 days ferrous gluconate 324 mg PO DAILY 30 days fluticasone propion-salmeterol 230-21 mcg/actuation (Advair HFA) 2 puffs PO BID fluticasone propionate 50 mcg/actuation 2 sprays intranasal DAILY PRN folic acid 0.8 mg PO DAILY ibuprofen (Children's Ibuprofen) 600 mg (30 mL) PO Q6H PRN 30 days Lactobacillus rhamnosus GG (Culturelle) 1 cap PO DAILY magnesium glycinate 200 mg (2 x 100 mg magnesium) PO BID 90 days meclizine 25 mg PO TID PRN 30 days methocarbamol 750 mg PO Q8H PRN multivitamin with folic acid 400 mcg (Daily-Meri (with folic acid)) 1 tab PO DAILY ondansetron 4 mg PO Q6H PRN 30 days Proctosol HC 2.5% (hydrocortisone) 1 appl [place] BID PRN NS riboflavin (vitamin B2) (Vitamin B-2) 400 mg (4 x 100 mg) PO DAILY 90 days sodium chloride 0.65% (Saline Nasal) sprays intranasal sumatriptan succinate 50 - 100 mg orally at onset of headache, may repeat in 2 hrs PRN; max 2 tabs per day or 4 tabs/week (may take with Ibuprofen) 30 days HPI Comments Details: 40-yr-old female presents for follow-up to discuss sleep concerns in the setting of migraine- via televideo Patient reports she has been having increased episodes of waking up out of sleep a/w her heart racing and transient cognitive difficulties (such as not recalling her child's name). She also endorses snoring, increased daytime sleepiness. She is also waking up with numbness in her hands. She does endorse restless leg symptoms, which has improved some since she started the oral iron therapy. A previous HST was inconclusive. 01/07/2025, HPI: Interval workup for a lower extremity internal vibration sensation, including BLE arterial and venous ultrasound, were unremarkable. She has noticed a left posterior painless cervical lump which she started to notice about 2 months ago. She has a h/o lipoma. Patients she continues to try to lose weight, but continues to struggle with this. She reports she has been having increased headaches, but notes that she is noticing the headache radiating more down the left face. She is experiencing a headache most days, occasionally may have a headache free day. She is having 12-13 days per month of moderate migraine- typically a/w menstrual cycle. She is experiencing 1-2 severe migraine attacks, which subside after taking an Ibuprofen and sleeping. She was unable to trial taking edamame, she was not able to find it in her local grocery stores. She is also having an aching discomfort in the right TMJ region. She is still prone to grinding her teeth. Has plans to f/u with her dentist. 07/02/24, HPI: Pt denies any significant interval medical changes. She reports increased stress, which can impact her sleep, diet, overall physical activity. She notes slight weight increase, secondary to taking a course of prednisone for asthma exacerbation last couple of months, or is now feeling better She has returned to school, she is trying to study for the [employer] exam She would like to discuss starting prescription migraine treatment today. Patient states she is noticing more migraine which is lasting longer and not responding to ibuprofen/Tylenol/increase fluid intake, but less general mild day-to-day headaches. Pt reports her migraines occur typically when stressed, but sometimes before, and always after her menstrual cycle. Notices left TMJ region discomfort during this headache- imelda with talking. She is now having 2 migraines per month, which last 3-4 days in total. She is having less overall mild headache- no longer daily. Mild headache may feel like head pressure especially if she stands quickly. Her last migraine with visual aura was in March. Still has a pre/postmenstrual migraine. Can be dizzy/off-balance at onset of migraine. Has a h/o clenching her jaw in her sleep- does not have a mouth guard- is missing mx teeth. Typical migraine w/ visual aura- lightening bolt/squiggling lines w/ visual loss x's 30-45 minutes f/b severe migraine- just 2-3 x's in the last year. Typical mild-mod migraine starts as brief dizziness, mod-severe pressure headache in usually top/crown or less often front of the head. A/w vision feeling crooked, mild photophobia, mild phonophobia. Triggers- just before/after menses, caffeine, stress. PFSH Medical History Anxiety Asthma Surgical History Hx of tonsillectomy Family History Father Heart disease Mother Migraine Heart disease Social History Alcohol intake: never Patient Tobacco Use Status: Never used Tobacco Physical Exam Vital Signs: BMI result Body Mass Index 49.9 Const General: cooperative and no acute distress Orientation/consciousness: patient oriented x3 Resp Effort & Inspection: normal respiratory effort and able to speak in complete sentences Neuro Other: Clinician instructed pt to perform the following: Positive Phalen in RUE- tingling elicited in right 2nd and 4th fingers. LUE Phalen, BUE tinnel, and medial anterior wrist compression test negative. General: patient oriented x3 Psych Mental Status: mental status grossly normal Affect: normal affect Attitude: cooperative Telehealth Telehealth Telehealth Platform: [facility] Location of provider rendering services: practice address Location of patient: address on file Patient Identification confirmed using: Name, : Yes Telehealth method: video Patient verbally consented to treatment: Yes Patient verbally consented to billing insurance company: Yes Patient informed of any privacy concerns related to visit: Yes Minutes spent on Phone/Video with Pt.: 23 Assessment & Plan Assessment & Plan (1) Sleep difficulties: Code(s): G47.9 - Sleep disorder, unspecified Category: Medical (2) Snoring: Code(s): R06.83 - Snoring Category: Medical (3) Excessive daytime sleepiness: Code(s): G47.19 - Other hypersomnia Category: Medical (4) RLS (restless legs syndrome): Code(s): G25.81 - Restless legs syndrome Category: Medical (5) Muscle cramps: Code(s): R25.2 - Cramp and spasm Category: Medical (6) Anemia: Code(s): D64.9 - Anemia, unspecified Category: Medical Qualifiers: Anemia type: unspecified type Qualified Code(s): D64.9 - Anemia, unspecified (7) Migraine with aura: Code(s): G43.109 - Migraine with aura, not intractable, without status migrainosus Category: Medical Qualifiers: Intractability: not intractable Status migrainosus presence: without status migrainosus Qualified Code(s): G43.109 - Migraine with aura, not intractable, without status migrainosus (8) Menstrual migraine: Code(s): G43.829 - Menstrual migraine, not intractable, without status migrainosus Category: Medical Qualifiers: Intractability: not intractable Status migrainosus presence: with status migrainosus Qualified Code(s): G43.821 - Menstrual migraine, not intractable, with status migrainosus Plan For sleep: * OTC Bilateral (right and left) carpal-tunnel cocked-up wrist splint- wear when sleeping * You are advised to undergo an in-lab sleep study to evaluate for sleep apnea and periodic limb movements of sleep (PLMS). * The [facility] Sleep Lab is located at [address] [place] [address]. * Once your insurance prior authorization is approved, the hospital will contact you to schedule the appointment. * Check f/u labs- due at least 1 week prior to follow-up appointment For right TMJ/jaw discomfort: * Follow-up with dentist as scheduled * Consider nocturnal mouth guard * May apply small amounts of sensodyne toothpaste to right right-sided upper molar, gum and inner cheek-may help reduce discomfort. * Ibuprofen as needed In the meantime, continue: For dizziness: Improved, we will monitor We have held previous order for Brain MRI to further assess dizziness- previously not completed d/t pt is claustrophobic. [address]- unremarkable. For migraine prevention: Continue Riboflavin. Trial magnesium glycinate 100-200 mg twice a day Previous trials: Magnesium oxide caused constipation. Premenstrual migraine: May try taking 1 cup of at a edemame per day at onset of menstrual cycle, and hopes this reduces severity of post menstrual migraine attack * May find a local grocery stores, such as [employer] For acute migraine treatment: May trial Sumatriptan 100mg tab, 1/2 - 1 tab (50-100mg) at onset of headache, may repeat in 2 hours. Max of 2 tabs (200mg) per 24 hours. May take sumatriptan with Tylenol and ibuprofen as below. * Potential adverse effects of triptans, include but are not limited to nausea, fatigue, chest tightness/tingling (usually passes within a few minutes), medication overuse headaches. Continue Children's liquid Ibuprofen- pt requests grape flavor only d/t strawberry/maurice allergy. Continue Tylenol prn. Continue prn Meclizine. Continue prn Zofran ODT 4mg- pt cannot take tablet version d/t peanut allergies. Future considerations: Allergy consult- to clarify if there are allergy concerns w/ flavored liquid meds-patient does not recall doing this f/u in 6 months or sooner prn. Pt to follow-up in 6 months or sooner prn. Orders: Orders Complete Blood Count Auto Diff 03/14/25 D64.9 - Anemia, unspecified, E66.01 - Morbid (severe) obesity due to excess calories Comprehensive Met. Panel 03/14/25 D64.9 - Anemia, unspecified, E66.01 - Morbid (severe) obesity due to excess calories IRON PROFILE 03/14/25 D64.9 - Anemia, unspecified, E66.01 - Morbid (severe) obesity due to excess calories RT PSG in-lab sleep study 03/14/25 E66.01 - Morbid (severe) obesity due to excess calories, G47.19 - Other hypersomnia, G47.9 - Sleep disorder, unspecified, R06.83 - Snoring Ferritin 03/14/25 D64.9 - Anemia, unspecified, E66.01 - Morbid (severe) obesity due to excess calories Coding Level of Care Code Tele Est Pt Level 4 (61252) Diagnoses Sleep difficulties G47.9 Snoring R06.83 Excessive daytime sleepiness G47.19 RLS (restless legs syndrome) G25.81 Muscle cramps R25.2 Anemia, unspecified type D64.9 Anemia type: unspecified type Migraine with aura and without status migrainosus, not intractable G43.109 Intractability: not intractable Status migrainosus presence: without status migrainosus Menstrual migraine with status migrainosus, not intractable G43.821 Intractability: not intractable Status migrainosus presence: with status migrainosus [place] Sleepiness Scale Questions Sitting and reading: high chance of dozing Watching TV: high chance of dozing Sitting inactive in a theater, movie etc.: moderate chance of dozing As a passenger in a car for an hour without break: slight chance of dozing Lying down in the afternoon when circumstances permit: high chance of dozing Sitting and talking to someone: would never doze Sitting quietly after lunch without alcohol: high chance of dozing In a car, while stopped for a few minutes in the traffic: would never doze ESS < 10: normal, ESS > 12: pathologic: 15
[2025-03-14 14:10] VITALS: BMI 49.9
--- OUTSIDE RECORDS SUMMARY | 2025-03-14 19:31 | XMS_ITS | Encounter Summary ---
Author Organization [facility] Address [address] [place] [address] Care Team Providers Care Account Manager Relief Name Role Phone Karin Clemente MD Primary Care Provider [phone] Reason for Visit * Reason Onset Date Comments Hospitalization/ER 03/12/2025 Encounter Details Date Type Department Care Team (Late st Contact Info) Description 03/12/2025 Telephone Adult Medicine [address] [phone] Karin Clemente MD [address] [place] [address] Social History Tobacco Use Types Packs/Day Years [...] for your loved ones. For example, children's program coordinator or elderly care for an older adult? [...] as of this encounter Progress Notes * Ana Guardado MA - 03/12/2025 3:58 PM EST Pt had appt maria/ vivi on 03/13 at 8 am I changed visit type to reflex ER F/u. * Jennifer Romero - 03/12/2025 2:19 PM EST Hospital/ER follow up appointment needed Hospital patient was treated at: [facility] Was this only an ER visit or was the patient admitted to the hospital? ER Visit only Date of visit if ER visit only: 03/11/2025 If patient was admitted what was the date of discharge? 03/11/2025 Reason/diagnosis for visit or stay: stomach pain, blood in stool. When was the patient told to follow up? SUZETTE Was visit or stay related to an injury? If yes, what was the date of injury (DOI)? No If yes, was the injury due to: Not 3rd democrat related documented in this encounter Plan of Treatment Upcoming Encounters Date Type Department Care Team (Late st Contact Info) Description 03/21/2025 8:20 AM EST Office Visit Gastroenterology - [address] [place] [phone] Amelia Garcia, ES [address] [place] [address] 04/10/2025 11:00 AM EST Evaluation [facility] [address] [place] [phone] Ines Tidwell PT 04/29/2025 11:15 AM EST Office Visit Bariatric Surgery - [place] [address] [place] [phone] Daisy Dan MD [address] [place] [phone] 04/30/2025 11:00 AM EST Office Visit Adult Medicine [address] [address] Karin Clemente MD [address] [place] [phone] 05/07/2025 3:30 PM EST Consult Vascular Surgery - [place] [address] [place] [address] Annamaria Artis, PA [address] [place] [phone] 05/21/2025 10:30 AM EST Office Visit Orthopedic Surgery - [place] [address] [facility] [address] [place] [phone] Jonatan Marie, DPM [address] [facility] [address] [place] [phone] 07/17/2025 9:00 AM EDT Consult [facility] [address] [facility] [address] [place] [phone] Heather Roldan, PA [address] [place] [phone] 01/21/2026 11:20 AM EDT Office Visit Gastroenterology - [address] [facility] [address] [facility] [address] [place] [address] Amelia Garcia NP [address] [facility] [address] [place] [address] documented as of this encounter Visit Diagnoses Not on filedocumented in this encounter Additional Health Concerns Assessment Noted Time PHQ-9 Depression Total Score: 15 025 11:37 AM EST documented as of this encounter Care Teams Account Manager Relief Relationship Specialty Start Date End Date Karin Clemente MD [address] [place] [address] PCP - General Internal Medicine 01/23/24 documented as of this encounter
--- OUTSIDE RECORDS SUMMARY | 2025-03-14 19:31 | XMS_ITS | Data Portability ---
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 [id number] Active 2014 Nasal polyp, unspecifi ed; Note: Date Diagnosed : 03/05/2015 4:09 PM (J33.9) Not Available [facility] 4 02:44:35 Deviated nasal septum 441791400 Active 2014 Deviated nasal septum; Note: Date Diagnosed : 03/05/2015 4:09 PM (J34.2) Not Available [facility] 4 02:44:37 Allergic rhinitis 60727949 Active 2015 Perennial allergic rhinitis; Note: Date Diagnosed : 04/17/2015 11:43 AM (J30.89) Not Available [facility] 4 02:44:28 Impacted cerumen of bilateral ears 08917288336 32846 Active 2022 Impacted cerumen, bilateral ; Note: Date Diagnosed : 3 1:53 PM (H61.23) Not Available [facility] 4 02:44:27 Benign paroxysma l positiona l vertigo 467525394 Active 2022 Benign paroxysma l vertigo, right ear; Note: Date Diagnosed : 3 1:52 PM (H81.11) Not Available [facility] 4 02:44:34 Bilateral tinnitus 39304087929 02 Active 2024 MADYSON CHRISTENSEN [place], [facility] [address] [place] [address],[place] [address], [facility] [place], [address] , [facility] 5 16:09:05 Referred otalgia of right ear 42485397707 92881 Active 2024 CALIXTO MELGAR MD [address] [place] [address],[place] [address], [facility] [place], [address] , [facility] [place] 5 16:37:36 Problem Notes None recorded. Procedures Surgical History Date Name Laterality Status Provider Name and Address Organization Details Recorded Time 07/02/2024 Air & Speech Audio with Tymps - 19683, 04631 & 97327 completed MADYSON CHRISTENSEN [place], [facility] [address] [facility],[place] [address], [place], [address], [facility] - [facility] [place] 07/02/2024 16:09:18 Imaging Results None recorded. Procedure [...] mg tablet 07/02 completed Medicati on ID: [id number] D uration Value: 3 Brand Name: oxycodon [...] 6.5 % 07/02 completed Medicati on ID: [id number] D uration Value: 5 Brand Name: Ear [...] mg tablet 07/02 completed Medicati on ID: [id number] D uration Value: 10 Brand Name: ibuprofe n Send Method: E-Prescr ibed Sub s Allowed: subs PRICILLA Lopes al Instruct ion: TAKE 1 TABLET BY MOUTH EVERY 8 HOURS NEEDED FOR PAIN Med icationG enericNa me: ibuprofe n Not Available Not Available Not Available levofloxa josh 500 mg tablet 07/02 completed Medicati on ID: [id number] D uration Value: 7 Brand Name: levoflox [...] mcg tablet 07/02 completed Medicati on ID: [id number] D uration Value: 28 Brand Name: Tri-Prev [...] Updated DateTime 07/02/2024 165.1 cm 53.3 kg/m2 309479.56 g Lindsay Freire [place] [facility] 07/02/2024 16:21:17 Social History None recorded. [...] ICD10 Code Diagnosis IMO Codes Diagnosis Note [id number] CALIXTO MELGAR MD [facility] of [address] [phone] 07/02/2024 14:57:13 07/02/2024 16:39:08 Bilateral tinnitus 9350766335 102 H93.13 Audiologic al evaluation results: Right ear: Normal hearing with excellent word recognitio n. Left ear: Normal hearing with excellent word recognitio n. Tympanomet ry: Right Ear:Type A Left Ear:Type A Referred o talgia of right ear 1061663095 318717 H92.01 M26.621 M79.11 The patient complains of [...] Ayon Member ID Guarantor Name 07/02/2024 1 [facility] PLAN - [employer] (MEDICAID REPLACEMENT - HMO) [employer] Krsytal L Deforge [id number] Krsytal L Deforge Notes Date Note Type [...] discretion. No recent sx. CALIXTO MELGAR MD [address] [place] [address], [place], [address], [place] [facility] 07/02/2024 16:39:55 OBGyn Episode No OBEpisode recorded.
--- OUTSIDE RECORDS SUMMARY | 2025-03-14 19:31 | XMS_ITS | Clinical Summary ---
Author Organization [facility] [address] [place] [address] [place] [phone] Phone Care Team Providers Care Store Coordinator Name Role Phone Karin Clemente MD Primary Care Provider [phone] Allergies Active Allergy Reactions Criticality Noted Date Comments Amoxicillin-Pot Clavulanate High 12/01/19 22 Other Reaction(s): Numbness, tingling or swelling of the lips, tongue or mouth Cefaclor 12/09/2014 Clindamycin Itching 05/01/2016 Lemon Flavor 05/27/2016 Macrolide Antibiotics 02/11/2014 Methylisothiazolinone 01/27/2017 Other 03/14/2016 TESTED POSITIVE BY STERILE SUPERVISOR Peanut 03/14/2016 STERILE SUPERVISOR TESTED POSITIVE [place] 12/03/2020 Medications diphenhydrAMINE (BENADRYL) 25 mg capsule Take 1 capsule (25 mg total) by mouth every 6 (six) hours if needed for allergies. (TAKE 1-2 TABLETS WITH ALLERGY REACTIONS). 024 Active fluticasone propion-salmeter oL (ADVAIR HFA) 230-21 mcg/actuation inhaler Inhale 2 puffs by mouth 2 (two) times a day. This medication has inhaler steroid: Rinse mouth with water and expectorate after each dose to prevent oral/esophageal candidiasis or fungal infection. - 024 Active meclizine (ANTIVERT) 25 mg tablet Take 1 tablet (25 mg total) by mouth 3 (three) times a day if needed for dizziness. 30 tablet 5 024 Active SUMAtriptan (IMITREX) 100 mg tablet TAKE ONE-HALF TO ONE TABLET BY MOUTH NEEDED AT ONSET OF HEADACHE. MAY REPEAT IN 2 HOURS NEEDED. MAX 2 TABLETS PER DAY OR 4 TABLETS A WEEK. (MAY TAKE WITH IBUPROFEN). Active folic acid (FOLVITE) 800 mcg tablet Take 1 tablet by mouth once daily 90 tablet 1 Active biotin 5 mg capsule Take 1 capsule by mouth once daily 30 capsule 4 Active acetaminophen (TYLENOL) 325 mg tablet TAKE [...] MOUTH ONCE DAILY 360 tablet Active Nasal [place], sodium chloride, 0.65 % nasal spray USE 1 DOSE IN EACH NOSTRIL 4 TIMES DAILY NEEDED FOR CONGESTION 44 mL 2 Active cetirizine (ZyrTEC) 10 mg tabletIndication s:Moderate asthma without complication, unspecified whether persistent Take 2 tablets (20 mg total) by mouth 1 (one) time each day if needed for allergies or rhinitis. 90 tablet 3 025 Active Ventolin HFA 90 mcg/actuation inhalerIndicatio ns:Moderate persistent asthma with exacerbation Inhale 2 puffs by mouth every 4 (four) hours if needed for wheezing. 36 g 2 025 2024 Active chlorhexidine (HIBICLENS) 4 % external liquid APPLY TOPICALLY 2 TO 3 TIMES A WEEK TO ABDOMEN AREA. RINSE OFF. Active clotrimazole (LOTRIMIN) 1 % cream APPLY 1 APPLICATION OF CREAM TOPICALLY ONCE DAILY TO AFFECTED AREA/SKIN FOLDS Active ferrous gluconate (FERGON) 324 mg (38 mg iron) tablet Take 1 tablet (324 mg total) by mouth 1 (one) time each day. 025 Active magnesium glycinate 100 mg magnesium capsule Take 200 mg (2 capsules total) by mouth 2 (two) times a day. 025 Active senna (Senokot) 8.6 mg tablet Take 2 tablets (17.2 mg total) by mouth 1 (one) time each day. 180 each 3 025 2025 Active ibuprofen (ADVIL,MOTRIN) 100 mg/5 mL suspension Take 20 mL (400 mg total) by mouth every 8 (eight) hours if needed for mild pain. 1800 mL 1 Active psyllium (METAMUCIL) 0.4 gram capsule Take 2 capsules (800 mg total) by mouth 1 (one) time each day. 180 capsule 3 025 2025 Active clobetasoL (TEMOVATE) 0.05 % topical solution Active ketoconazole (NIZORAL) 2 % shampoo APPLY SHAMPOO TOPICALLY TO SCALP 2 TO 3 TIMES A WEEK, LEAVE ON FOR 5 MINUTES THEN RINSE OFF 025 Active ketoconazole (NIZORAL) 2 % cream Apply topically 1 (one) time each day. 30 g 2 025 Active Lactobac. rhamnosus GG-inulin ([facility]) 10 billion cell -200 mg capsule Take by mouth. Active ketoconazole (NIZORAL) 2 % cream Apply topically 1 (one) time each day. 30 g tube 30 g 2 025 Active fluticasone propionate (FLONASE) 50 mcg/actuation nasal sprayIndications :Allergic rhinitis, unspecified Use 2 spray(s) in each nostril once daily 48 g 025 Active multivitamin (Tab-A-Meri) tablet Take 1 tablet by mouth 1 (one) time each day. 90 tablet 1 025 Active cholecalciferol (VITAMIN D-3) 50 mcg (2,000 unit) tablet Take 1 tablet (2,000 Units total) by mouth 1 (one) time each day. 90 tablet 1 025 Active multivitamin (Tab-A-Meri) tablet Take 1 tablet by mouth once daily 90 tablet 1 025 2024 Discontinued( Reorder) cholecalciferol (VITAMIN D-3) 50 mcg (2,000 unit) tablet Take 1 tablet by mouth once daily 90 tablet 1 025 2024 Discontinued( Reorder) fluticasone propionate (FLONASE) 50 mcg/actuation nasal spray Administer 2 sprays into each nostril 1 (one) time each day. 2024 Discontinued ondansetron ODT (ZOFRAN-ODT) 4 mg disintegrating tablet DISSOLVE 1 TABLET IN MOUTH EVERY 6 HOURS NEEDED FOR NAUSEA AND VOMITING 2024 Discontinued( Therapy completed) doxycycline (ADOXA) 100 mg tablet Take 1 tablet (100 mg total) by mouth 2 (two) times a day. for 10 days 2024 Discontinued( Therapy completed) Active Problems Problem Noted Date Diagnosed Date Bilateral tinnitus 07/02/2024 Referred otalgia of right ear 07/02/2024 Chronic gastric ulcer with obstruction Kidney stones 01/08/2024 Moderate asthma 01/08/2024 Overview (01/08/2024): 05/18/2017 ,zhen prn. Family history of cancer 01/08/2024 Hx of splenomegaly 01/08/2024 Hx of Helicobacter infection 01/08/2024 Morbid obesity with BMI of 45.0-49.9, adult 10/2023 Benign paroxysmal positional vertigo 03/28/2023 Overview (07/16/2024): [...] 02/11/2014 Anxiety 02/11/2014 Overview (01/08/2024): Follows with [facility] behavioral health Counselor: Vanessa Tidwell - weekly OCD (obsessive compulsive disorder) 02/11/2014 Overview (01/08/2024): Sees [facility] Diaposproa- Victoria Tidwell Tenosynovitis, de Quervain 02/11/2014 Overview (01/08/2024): right Dyshidrotic eczema 02/11/2014 Encounters Date Type Department Care Team Description 03/13/2025 8:00 AM EST Office Visit Adult [address] [phone] Shay Gross PA Viral gastroenteritis (Primary Dx); BRBPR (bright red blood per rectum); Nausea and vomiting, unspecified vomiting type; Acute diarrhea 03/12/2025 Telephone Adult [address] [phone] Karin Clemente MD 03/10/2025 Telephone Adult [address] [phone] Karin Clemente MD 02/19/2025 12:30 PM EST Office Visit Adult [address] [phone] Shay Gross PA Anxiety (Primary Dx); Tachycardia; Viral upper respiratory tract infection 02/19/2025 Telephone Orthopedic Surgery - [place] [address] [place] [phone] Jonatan Marie DPM 02/17/2025 Results Follow-Up Adult Medicine [address] [phone] Karin Clemente MD 02/12/2025 10:45 AM EST Office Visit Orthopedic Surgery [facility] [address] [phone] Jonatan Marie, DPM Plantar fascial fibromatosis (Primary Dx); Dermatophytosis of nail; Tendinitis of right ankle 02/12/2025 8:00 AM EST Treatment [address] [phone] Dickson Conde PT Tendinitis of right ankle (Primary Dx); Difficulty in walking 02/10/2025 Telephone Adult [address] [phone] Karin Clemente MD 02/05/2025 12:20 PM EST Lab Draw Station - [address] Lymphadenopathy, occipital; Racing heart beat; Sleep difficulties 02/05/2025 11:30 AM EST Office Visit [address] [phone] Jeromy José PA Lymphadenopathy, occipital (Primary Dx); Racing heart beat; Sleep difficulties 01/31/2025 10:40 AM EDT Lab Draw Station [address] Encounter for screening for viral disease 01/22/2025 1:30 PM EDT Office Visit Adult [address] [phone] Shay Gross PA Chronic nonintractable headache, unspecified headache type (Primary Dx); Low back pain without sciatica, unspecified back pain laterality, unspecified chronicity; Learning difficulty 01/22/2025 12:30 PM EDT Treatment [facility] [address] [phone] Max Styles, COMMUNICATIONS SPECIALIST Tendinitis of right ankle (Primary Dx) 01/22/2025 Telephone Obstetrics & Gynecology - [facility] [address] [place] [phone] Cherie Wilkinson CNM 01/22/2025 Telephone Gastroenterology [address] [phone] Amelia Garcia NP 01/21/2025 3:20 PM EDT Office Visit Gastroenterology [address] [phone] Amelia Garcia NP Gastroesophageal reflux disease without esophagitis (Primary Dx); Constipation, unspecified constipation type 01/13/2025 Telephone Adult Medicine [address] [phone] Corry Renteria MA 01/01/2025 10:15 AM EDT Treatment [address] [phone] Lazaro Tidwell, COMMUNICATIONS SPECIALIST Tendinitis of right ankle (Primary Dx); Difficulty in walking 12/30/2024 Telephone Adult Medicine [address] [phone] Karin Clemente MD 12/25/2024 11:00 AM EDT Treatment [address] [phone] Ge Kahn, PT Tendinitis of right ankle (Primary Dx); Difficulty in walking 12/20/2024 10:30 AM EDT Evaluation [address] [phone] Dickson Conde, PT Tendinitis of right ankle (Primary Dx); Difficulty in walking 12/20/2024 Plan of Care Documentation [address] [phone] from Last 3 Months Immunizations Immunization Administration [...] (obsessive compulsive disorder) 02/11/2014 Asthma Morbid obesity ([facility] V24, [facility] V28) 02/11/2014 Anxiety 02/11/2014 ADHD (attention deficit hype ractivity disorder) 02/11/2014 DX:ADHD (attention deficit hyperactivity disorder) Allergic rhinitis 03/10/2015 DX:Allergic rh initis Anxiety 02/11/2014 DX:Anxiety; COMM ENT: Follows with [facility] behavioral health Counselor: Vanessa Tidwell - [...] obesity with BMI of 4 5.0-49.9, adult ([facility] V24, [facility] V28) 02/11/2014 DX:Morbid obesity wit h BMI of 45.0-49.9, adult (HCC) OCD (obsessive compulsive disorder) 02/11/2014 DX:OCD (obsessive compulsive disorder); COMMENT: Sees [facility] [place] TenosynWen 02/11/2014 DX:Te nosynoviStrong; COMMENT: right Vitamin D deficiency 07/03/2017 DX:Vitamin [...] for your loved ones. For example, child psychologist or elderly care for an older adult? [...] Vag-S pont None Living Dr.Si newsome Delivery Location:[facility] 009 Term 38w 0d 3827 g (135 oz) M Vag-S pont None Living 8 9 Delivery Location:[facility] 11/2018 Last Filed Vital Signs Vital Sign [...] Mass Index 50.01 03/13/2025 8:15 AM EST Plan of Treatment Upcoming Encounters Date Type Department Care Team (Late st Contact Info) Description 03/21/2025 8:20 AM EST Office Visit Gastroenterology - 299 [facility] 299 [facility] [address] [place] [phone] Amelia Garcia NP 299 [facility] [address] [place] [address] 04/10/2025 11:00 AM EST Evaluation [facility] [place] 175 [facility] [address] [place] [phone] Ines Tidwell, JYOTI 04/29/2025 11:15 AM EST Office Visit Bariatric Surgery - [place] 175 [facility] [address] [place] [phone] Daisy Dan MD 230 [place] [phone] 04/30/2025 11:00 AM EST Office Visit Adult Medicine [facility] 444 [place] [phone] Karin Clemente MD [address] [place] [phone] 05/07/2025 3:30 PM EST Consult Vascular Surgery - [place] [address] [place] [phone] Annamaria Artis PA 230 [place] [phone] 05/21/2025 10:30 AM EST Office Visit Orthopedic Surgery - [place] 250 175 [facility] [address] [place] [phone] Jonatan Marie, DPM 175 [facility] [address] [place] [phone] 07/17/2025 9:00 AM EDT Consult [facility] [place] [facility] [place] 175 [facility] [address] [place] [phone] Heather Roldan PA 230 [place] [phone] 01/21/2026 11:20 AM EDT Office Visit Gastroenterology - [address] [place] 299 [facility] [address] [place] [phone] Amelia Garcia, ES 299 [facility] [address] [place] [address] Health Maintenance Due Date Last Done Comments [...] Date/Time Associated Diagnosis Comments EXTERNAL VASCULAR ULTRASOUND 02/12/2025 EXTERNAL VASCULAR ULTRASOUND 02/12/2025 CBC WITH AUTO DIFFERENTIAL Routine 02/05/2025 12:24 [...] Health Maintenance Results * External Vascular Ultrasound (02/12/2025) Only the most recent of4 resultswithin the time period is included. Anatomical Region Laterality Modality Ultrasound us Provider [facility] CV VASCULAR PROCEDURES F inal Result * (ABNORMAL) CBC auto differential (02/05/2025 12:24 PM EST) WBC 7.7 4.8 - 10.8 K/mcL LAB HEMETOLOGY METHOD 02/05/2025 3:22 PM [facility] RBC 4.90(H) 3.80 - 4.80 M/mcL LAB HEMETOLOGY METHOD 02/05/2025 3:22 PM [facility] Hemoglobin 12.8 11.5 - 16.0 g/dL LAB HEMETOLOGY METHOD 02/05/2025 3:22 PM [facility] Hematocrit 41.4 35.0 - 47.0 % LAB HEMETOLOGY METHOD 02/05/2025 3:22 PM [facility] MCV 84.7 79.0 - 98.0 FL LAB HEMETOLOGY METHOD 02/05/2025 3:22 PM [facility] MCH 26.2(L) 27.0 - 32.0 pcg LAB HEMETOLOGY METHOD 02/05/2025 3:22 PM [facility] MCHC 30.9(L) 32.0 - 37.0 g/dL LAB HEMETOLOGY METHOD 02/05/2025 3:22 PM [facility] RDW 13.8 11.0 - 15.0 % LAB HEMETOLOGY METHOD 02/05/2025 3:22 PM [facility] Platelets 254 130 - 400 K/mcL LAB HEMETOLOGY METHOD 02/05/2025 3:22 PM [facility] MPV 10.9 7.0 - 11.0 FL LAB HEMETOLOGY METHOD 02/05/2025 3:22 PM [facility] NRBC 0.0 <1.0 % LAB HEMETOLOGY METHOD 02/05/2025 3:22 PM [facility] NRBC Absolute 0.00 <0.10 K/mcL LAB HEMETOLOGY METHOD 02/05/2025 3:22 PM [facility] Neutrophils Relative 63.3 % LAB HEMETOLOGY METHOD 02/05/2025 3:22 PM [facility] Lymphocytes Relative 27.0 % LAB HEMETOLOGY METHOD 02/05/2025 3:22 PM [facility] Monocytes Relative 6.3 % LAB HEMETOLOGY METHOD 02/05/2025 3:22 PM [facility] Eosinophils Relative 2.1 % LAB HEMETOLOGY METHOD 02/05/2025 3:22 PM [facility] Basophils Relative 0.9 % LAB HEMETOLOGY METHOD 02/05/2025 3:22 PM [facility] Immature Granulocytes Relative 0.4 % LAB HEMETOLOGY METHOD 02/05/2025 3:22 PM [facility] Neutrophils Absolute 4.86 1.50 - 7.00 K/mcL LAB HEMETOLOGY METHOD 02/05/2025 3:22 PM EST [facility] Lymphocytes Absolute 2.07 1.00 - 5.00 K/mcL LAB HEMETOLOGY METHOD 02/05/2025 3:22 PM EST [facility] Monocytes Absolute 0.48 0.20 - 1.00 K/mcL LAB HEMETOLOGY METHOD 02/05/2025 3:22 PM EST [facility] Eosinophils Absolute 0.16 0.00 - 0.50 K/[facility] LAB HEMETOLOGY METHOD 02/05/2025 3:22 PM EST [facility] Basophils Absolute 0.07 0.00 - 0.20 K/[facility] LAB HEMETOLOGY METHOD 02/05/2025 3:22 PM EST [facility] Immature Granulocytes Absolute 0.03 0.00 - 0.03 K/[facility] LAB HEMETOLOGY METHOD 02/05/2025 3:22 PM EST [facility] Blood Venous blood specimen / Unknown Venipuncture / Unknown 02/05/2025 12:24 PM EST 02/05/2025 12:24 PM EST Jeromy DEL ROSARIO LAB BLOOD ORDERABLES Fin al Result [facility] [address] [place] [address], * Thyroid stimulating hormone (02/05/2025 12:24 PM EST) TSH 3.23 0.40 - 4.00 mcIU/mL LAB CHEMISTRY METHOD 02/05/2025 5:54 PM EST [facility] Blood Venous blood specimen / Unknown Venipuncture / Unknown 02/05/2025 12:24 PM EST 02/05/2025 12:24 PM EST us Jeromy DEL ROSARIO LAB BLOOD ORDERABLES Fin al Result [facility] [address] [place] [address], [place] [phone] * Magnesium (02/05/2025 12:24 PM EST) [facility] Magnesium 2.1 1.9 - 2.6 mg/dL LAB CHEMISTRY METHOD 02/05/2025 5:13 PM [facility] Blood Venous blood specimen / Unknown Venipuncture / Unknown 02/05/2025 12:24 PM EST 02/05/2025 12:24 PM EST us Jeromy DEL ROSARIO LAB BLOOD ORDERABLES Fin al Result [facility] [address] [place] [address], [place] [phone] * Comprehensive metabolic panel (02/05/2025 12:24 PM EST) [facility] Sodium 138 133 - 145 mmol/L LAB CHEMISTRY METHOD 02/05/2025 5:13 PM [facility] Potassium 4.2 3.5 - 5.5 mmol/L LAB CHEMISTRY METHOD 02/05/2025 5:13 PM [facility] Chloride 104 96 - 110 mmol/L LAB CHEMISTRY METHOD 02/05/2025 5:13 PM [facility] CO2 30 21 - 32 mmol/L LAB CHEMISTRY METHOD 02/05/2025 5:13 PM [facility] Anion Gap 4 3 - 11 LAB CHEMISTRY METHOD 02/05/2025 5:13 PM [facility] Glucose 92 70 - 100 mg/dL LAB CHEMISTRY METHOD 02/05/2025 5:13 PM [facility] BUN 9 5 - 25 mg/dL LAB CHEMISTRY METHOD 02/05/2025 5:13 PM [facility] Creatinine 0.84 0.50 - 1.10 mg/dL LAB CHEMISTRY METHOD 02/05/2025 5:13 PM [facility] eGFR 90 >=60 mL/min/1. 73m2 LAB CHEMISTRY METHOD 02/05/2025 5:13 PM [facility] Comment:Calculation based on the Chronic Kidney Disease Epidemiology Collaboration (CKD-EPI) equation refit without adjustment for race. BUN/Creatinine Ratio 10.7 LAB CHEMISTRY METHOD 02/05/2025 5:13 PM [facility] Calcium 9.2 8.5 - 10.5 mg/dL LAB CHEMISTRY METHOD 02/05/2025 5:13 PM [facility] AST (SGOT) 21 10 - 42 unit/L LAB CHEMISTRY METHOD 02/05/2025 5:13 PM [facility] ALT (SGPT) 31 10 - 60 unit/L LAB CHEMISTRY METHOD 02/05/2025 5:13 PM [facility] Alkaline Phosphatase 95 42 - 121 unit/L LAB CHEMISTRY METHOD 02/05/2025 5:13 PM [facility] Total Protein 7.0 6.0 - 8.0 g/dL LAB CHEMISTRY METHOD 02/05/2025 5:13 PM [facility] Albumin 3.7 3.2 - 5.0 g/dL LAB CHEMISTRY METHOD 02/05/2025 5:13 PM [facility] Total Bilirubin 0.4 0.0 - 1.4 mg/dL LAB CHEMISTRY METHOD 02/05/2025 5:13 PM [facility] Blood Venous blood specimen / Unknown Venipuncture / Unknown 02/05/2025 12:24 PM EST 02/05/2025 12:24 PM EST us Jeromy DEL ROSARIO LAB BLOOD ORDERABLES Fin al Result [facility] [address] [place] [address], * ECG 12 lead (02/05/2025 12:13 PM EST) Jeromy Castelan PA - 02/05/2025 12:13 PM EST Sinus tachycardia. No acute ST changes Jeromy DEL ROSARIO ECG ORDERABLES Final Re sult * Hepatitis C antibody (01/31/2025 10:41 AM EDT) Hepatitis C Antibody Negative Negative LAB CHEMISTRY METHOD 01/31/2025 5:02 PM EDT [facility] Blood Venous blood specimen / Unknown Venipuncture / Unknown 01/31/2025 10:41 AM EDT 01/31/2025 10:41 AM EDT Tushar Stanford [facility] LAB BLOOD ORDERABLES Final Re sult [facility] [address] [place] [address], * HPV with reflex genotype (09/26/2024 11:50 AM EDT) HPV Negative Negative LAB MICROBIOLOGY METHOD 09/27/2024 12:43 PM EDT [facility] Brushing/Spatula Cervix uteri structure / Unknown 09/26/2024 11:50 AM EDT 09/27/2024 6:13 AM EDT Cherie Wilkinson [facility] MOLECULAR DIAGNOSTICS ORD ERABLES Final Result [facility] [address] [place] [address], * MG Mammo Digital Screening w Bandar [...] year. [facility]amm[facility] [address], [address] -------- FINAL REPORT -------- Dictated By: Tee Cronin Dictated Date: 09/11/2024 11:23 ET Assigned Physician: Tee Cronin Reviewed and Electronically Signed By: Tee Cronin Signed Date: 09/11/2024 11:31 ET Workstation ID: [id number] Transcribed By: Self Edit Transcribed Date: 09/11/2024 11:23 ET Narrative 09/11/2024 11:31 AM EDT EXAM: SCREENING MAMMOGRAPHY, BILATERAL HISTORY: SCREENING. Aunt diagnosed with breast cancer age 45 COMPARISON: 03/31/22 TECHNIQUE: Synthesized CC and MLO projections of each breast. Tomosynthesis of each breast in the CC and MLO projections. ADDITIONAL IMAGING: None Computer-aided detection was employed with the [employer] AI 3-D. TISSUE DENSITY: The breasts are [...] None Computer-aided detection was employed with the [employer] AI 3-D. TISSUE DENSITY: The breasts are [...] year. Mamm[facility] location: [facility] [address], [address] -------- FINAL REPORT -------- Dictated By: Tee Cronin Dictated Date: 09/11/2024 11:23 ET Assigned Physician: Tee Cronin Reviewed and Electronically Signed By: Tee Cronin Signed Date: 09/11/2024 11:31 ET Workstation ID: [id number] Transcribed By: Self Edit Transcribed Date: 09/11/2024 [...] l Result * HIV Screening (01/10/2022) Pathologist [facility] HIV Screening abstracted Historical Provider HEALTH MAINTENANCE Final Result from Last 3 Months or Most Recently Relevant to Health Maintenance Insurance [facility] AUTO GENERIC [facility] Care Teams Store Coordinator Relationship Specialty Start Date End Date Karin Clemente MD [address] [place] [phone] PCP - General Internal Medicine 01/23/24
--- OUTSIDE RECORDS SUMMARY | 2025-03-14 19:31 | XMS_ITS | Encounter Summary ---
Author Organization [facility] Address [address] [place] [address] Care Team Providers Care Riding Double Name Role Phone Karin Clemente MD Primary Care Provider [phone] Reason for Visit * Reason Onset Date Comments [place] 03/10/2025 Encounter Details Date Type Department Care Team (Late st Contact Info) Description 03/10/2025 Telephone Adult Medicine [address] [phone] Karin Clemente MD [address] [place] [address] Social History Tobacco Use Types Packs/Day Years [...] your loved ones. For example, child care sitter or elderly care for an older adult? [...] as of this encounter Progress Notes * Kris Christian RN - 03/10/2025 4:54 PM EST Called and spoke with pt. Pt c/o lump on right arm in AC area x [address] d[address]s small than a dime. No discoloration no pain. Had a cold three weeks ago no fever. Appt for * Pam Hardin - 03/10/2025 4:08 PM EST Patient call requires triage: Symptoms patient is presenting: Right arm has a lump. Patient is concerned. Please advise. How long has patient had these symptoms?: Noticed 4 days ago For ALL patients calling to schedule any appointment (routine, sick visit, follow up, consult, etc.) in the outpatient setting please ask the following questions: Do you have fever of higher than 101, sore throat with difficulty swallowing or severe shortness ofbreath? no If YES to any of these above symptoms, send a message to triage and do not book. Red dot. If no, an audio or video visit should be booked. Have you had close contact with someone with Coronavirus in the last 14 days? no Have you traveled abroad? no Have you traveled recently to another state outside of [place], [place], [place], [place], [place], [place]? no o If yes, did you quarantine for 14 days or have a negative covid test? no If yes to any of the above, patient is not to be scheduled in office until after 14 day quarantine or negative covid test. If pain or injury related was it due to an accident at work or from a motor vehicle accident? If yes, date of accident/Injury: No If yes, gather 3rd republican insurance information Third Democrat Information: not applicable PCP: Karin Clemente MD Payor: [employer] PLAN / Plan: [employer] MEDICAID / Product Type: *No Product type* / documented in this encounter Plan of Treatment Upcoming Encounters Date Type Department Care Team (Late st Contact Info) Description 03/21/2025 8:20 AM EST Office Visit Gastroenterology - [address] [facility] [address] [place] [address] Amelia Garcia NP [address] [place] [address] 04/10/2025 11:00 AM EST Evaluation [facility] [address] [facility] [address] [place] [phone] Ines Tidwell PT 04/29/2025 11:15 AM EST Office Visit Bariatric Surgery - [place] 175 [facility] [address] [place] [phone] Daisy Dan MD [address] [place] [phone] 04/30/2025 11:00 AM EST Office Visit Adult Medicine [facility] [address] [place], [place] [phone] Karin Clemente MD [address] [place] [phone] 05/07/2025 3:30 PM EST Consult Vascular Surgery - [place] [address] [facility] [address] [place] [phone] Annamaria Artis PA [address] [place] [phone] 05/21/2025 10:30 AM EST Office Visit Orthopedic Surgery [facility] [address] [facility] [address] [place] [address] Jonatan Marie DPM 175 [facility] [address] [place] [phone] 07/17/2025 9:00 AM EDT Consult [facility] - [place] 175 [facility] [address] [place] [phone] Heather Roldan PA [address] [place] [phone] 01/21/2026 11:20 AM EDT Office Visit Gastroenterology - [address] [facility] 299 [facility] [address] [place] [address] Amelia Garcia, ES 299 [facility] [address] [place] [address] documented as of this encounter Visit Diagnoses Not on filedocumented in this encounter Additional Health Concerns Assessment Noted Time PHQ-9 Depression Total Score: 15 025 11:37 AM EST documented as of this encounter Care Teams Riding Double Relationship Specialty Start Date End Date Karin Clemente MD [address] [place] [phone] PCP - General Internal Medicine 01/23/24 documented as of this encounter
== END 2025-03-14 15:12 | disposition home or self-care (01) ==
LOC: HO.HSMS 14:14
PROVIDERS: PCP Internal Medicine; Visit Provider Nurse Practitioner Family
DX: G47.9 Sleep disorder, unspecified (principal); R06.83 Snoring; G47.19 Other hypersomnia; G25.81 Restless legs syndrome; R25.2 Cramp and spasm; D64.9 Anemia, unspecified; G43.109 Migraine with aura, not intractable, without status migrainosus; G43.821 Menstrual migraine, not intractable, with status migrainosus
CPT/HCPCS: 99214